=== PATIENT | female | born 1945 | race Caucasian/White ===

== ENCOUNTER → 2020-05-01 14:43 | Outpatient (BNVA) | payer MEDICARE, MEDICAID, SELFPAY | PROVIDERS: PCP Physician Assistant; Referring Provider Physician Assistant; Visit Provider Family Medicine Adult Medicine | DX: M23.92 Unspecified internal derangement of left knee (principal); M51.36 Other intervertebral disc degeneration, lumbar region | CPT/HCPCS: 99212; Q3014 ==

== ENCOUNTER 2020-06-07 | Outpatient (REF) | payer MEDICARE, MEDICAID, SELFPAY ==
[2020-06-07 15:03] LABS: Glucose Urine UA NEG (NEG); Leukocyte Esterase Urine 1+ (NEG); Nitrite Urine POS (NEG); Specific Gravity - Urine 1.025 (1.005-1.025); Urine Blood TRACE (NEG); Urine Ketones NEG (NEG); Urine Protein TRACE MG/DL (NEG-TRACE)
[2020-06-07 15:10] LABS: Appearance Urine CLOUDY; Color Urine YELLOW
[2020-06-07 15:21] LABS: Bacteria Urine 4+ /LPF; RBC Urine 0-2 /HPF (0); Squamous Epithelial Cell Urine 1+ /LPF
== END 2020-06-07 00:01 | disposition home or self-care (01) ==
LOC: HO.LNP
PROVIDERS: Visit Provider Physician Assistant
DX: R30.0 Dysuria (principal)
CPT/HCPCS: 81001

== ENCOUNTER 2020-08-27 06:55 | Outpatient (REF) | payer MEDICARE, MEDICAID, SELFPAY ==
[2020-08-27 11:46] LABS: MANUAL DIFF FLAG NO
[2020-08-27 11:55] LABS: Basophils Percent Auto 0.2 % (0-2); Eosinophils Absolute Auto 0.1 X10*3/uL (0.0-0.4); Eosinophils Percent Auto 0.8 % (0-4); Hematocrit 33.5 % (37-47); Hemoglobin 10.7 g/dl (12.0-16.0); Imm Gran Abs Auto 0.03 X10*3/uL (0.00-0.03); Imm Gran Pct Auto 0.3 % (0.0-0.4); Lymphocytes Absolute Auto 1.3 X10*3/uL (1.2-4.9); Lymphocytes Percent Auto 12.5 % (20-40); Mean Corpuscular HGB Conc 31.9 g/dl (31.0-35.0); Mean Corpuscular Hemoglobin 30.5 pg (27.0-33.0); Mean Corpuscular Volume 95.4 fL (80-98); Mean Platelet Volume 9.7 fL (9.4-12.3); Monocytes Absolute Auto 0.5 X10*3/uL (0.1-1.2); Monocytes Percent Auto 4.7 % (2-11); Neutrophils Absolute Auto 8.7 X10*3/uL (2.0-8.3); Neutrophils Percent Auto 81.5 % (45-73); Platelet Count 209 X10*3/uL (160-400); Red Blood Count 3.51 X10*6/uL (4.20-5.50); Red Cell Distribution Width 13.7 % (11.0-16.0); White Blood Count 10.6 X10*3/uL (4.8-10.8)
[2020-08-27 12:07] LABS: Estimated Average Glucose 117 mg/dL; Hemoglobin A1c % 5.7 %
[2020-08-27 12:21] LABS: Alanine Aminotransferase 7 U/L (0-31); Albumin Level 3.9 g/dL (3.5-5.0); Alkaline Phosphatase 65 U/L (39-117); Anion Gap 11 (12-20); Aspartate Amino Transferase 11 U/L (5-31); Bilirubin Total 0.7 mg/dL (0.0-1.0); Blood Urea Nitrogen 13 mg/dL (9-16); Calcium 8.1 mg/dL (8.4-10.2); Carbon Dioxide 31 mmol/L (22-29); Chloride 100 mmol/L (96-108); Cholesterol 124 mg/dL; Estimated Glomerular Filt Rate > 60; Glucose Fasting 79 mg/dL (60-99); HDL Cholesterol 36 mg/dL; LDL Cholesterol Calculated 70 mg/dl; Potassium 3.9 mmol/L (3.3-5.1); Sodium 138 mmol/L (135-145); Total Protein 7.1 g/dL (6.5-8.0); Triglycerides 91 mg/dL
[2020-08-27 12:46] LABS: TSH reflex Free T4 3.17 uIU/mL (0.32-4.0)
== END 2020-08-27 06:56 | disposition home or self-care (01) ==
LOC: HO.LHD 06:55
PROVIDERS: Visit Provider Physician Assistant
DX: I48.0 Paroxysmal atrial fibrillation (principal); E11.42 Type 2 diabetes mellitus with diabetic polyneuropathy; Z79.4 Long term (current) use of insulin
CPT/HCPCS: 36415; 80053; 80061; 83036; 84443; 85025

== ENCOUNTER 2020-09-08 10:58 | Outpatient (REF) | payer MEDICARE, MEDICAID, SELFPAY ==
--- NOTE | 2020-09-08 11:13 | MHC.AU.P13 ---
Hearing Instrument Maintenance/Problem Date of Visit: 09/08/20 Right Ear: Computer Designer: Phonak Model: SpikeSource B50-P Serial Number: [id number] Repair Warranty: 07/24/21 Loss and Damage Warranty: 07/24/21 Battery Size: 13 Color: [place] Tubing: #2 SLIM TUBE Type of Dome: MEDIUM CLOSED Left Ear: Computer Designer: Phonak Model: SpikeSource B50-P Serial Number: [id number] RepairWarranty: 07/24/21 Loss and Damage Warranty: 07/24/21 Battery Size: 13 Color: [place] Tubing: #2 SLIM TUBE Type of Dome: MEDIUM CLOSED Follow-Up Summary: Hearing aids brought in for cleaning. Both aids cleaned and #2 slim tubes and medium closed domes replaced - both amplifying clearly. It was noted the left volume control is missing - sending to [email or web address] for repair. Dispensed 42 batteries today. Call patient when repair in. Recommendations: Recommendations: Patient will be contacted when materials have arrived. Signature: Provider: ALICE Burrell-
== END 2020-09-08 10:59 | disposition home or self-care (01) ==
LOC: HO.HAP 10:58
PROVIDERS: Visit Provider Physician Assistant
DX: Z46.1 Encounter for fitting and adjustment of hearing aid (principal)
CPT/HCPCS: 92593; 99499; V5266

== ENCOUNTER 2020-09-12 12:13 | Inpatient (IN) | payer MEDICARE, MEDICAID, SELFPAY ==
--- NOTE | ~2020-09-12 | XR_ITS ---
EXAMINATION: XR CHEST CLINICAL INFORMATION: Weakness COMPARISON: Chest 03/15/2019 TECHNIQUE: Frontal view of the chest was obtained. FINDINGS: The lungs are well-expanded and clear of acute process. The heart size and pulmonary vascularity is normal. There is mild dextro scoliosis of dorsal spine. No lytic process seen. XR/XR chest 1V IMPRESSION: Unremarkable chest exam.
--- NOTE | ~2020-09-12 | CT_ITS ---
EXAMINATION: CT HEAD/BRAIN WITHOUT CONTRAST CLINICAL INFORMATION: Altered mental status COMPARISON: March 15, 2019 TECHNIQUE: CT scanning from base of skull to vertex performed without IV contrast administration. This CT examination was performed using dose optimization techniques as appropriate, variously including the following: *Automated exposure control *Adjustment of mA and/or kV according to patient size (this includes techniques or standardized protocols for targeted exams where dose is matched to indication/reason for exam; i.e. extremities or head) *Use of iterative reconstruction technique DLP: 716 mGy-cm. FINDINGS: There is multilevel age-related prominence of the ventricles, sulci, and cisterns. No abnormal extra-axial fluid collection or intracranial hemorrhage is seen. No significant mass effect or midline structure shift is evident. Visualized paranasal sinuses and mastoid air cells unremarkable. CT/CT cervical spine wo con IMPRESSION: No acute intracranial abnormality identified. EXAMINATION: CT OF THE CERVICAL SPINE CLINICAL INFORMATION: Fall COMPARISON: None. TECHNIQUE: Thin helical images with sagittal and coronal reformats. This CT examination was performed using dose optimization techniques as appropriate, variously including the following: *Automated exposure control *Adjustment of mA and/or kV according to patient size (this includes techniques or standardized protocols for targeted exams where dose is matched to indication/reason for exam; i.e. extremities or head) *Use of iterative reconstruction technique DOSE: DLP 308 mGy-cm. FINDINGS: No abnormal prevertebral soft tissue swelling is seen. No fracture is noted. Paraspinal fat planes are maintained. There is degenerative disc disease seen most prominent C4-C7 with disc space narrowing and marginal spurring and sclerosis. There is some anterior neural foramina encroachment bilaterally from spurring of the joints of L[place]chka most significant at the C6-7 levels. Pterygoid plates are intact. Temporomandibular joints unremarkable. The lung apices are clear. IMPRESSION: No acute cervical spine fracture. Cervical spondylosis.
--- NOTE | ~2020-09-12 | CT_ITS ---
EXAMINATION: CT HEAD/BRAIN WITHOUT CONTRAST CLINICAL INFORMATION: Altered mental status COMPARISON: March 15, 2019 TECHNIQUE: CT scanning from base of skull to vertex performed without IV contrast administration. This CT examination was performed using dose optimization techniques as appropriate, variously including the following: *Automated exposure control *Adjustment of mA and/or kV according to patient size (this includes techniques or standardized protocols for targeted exams where dose is matched to indication/reason for exam; i.e. extremities or head) *Use of iterative reconstruction technique DLP: 716 mGy-cm. FINDINGS: There is multilevel age-related prominence of the ventricles, sulci, and cisterns. No abnormal extra-axial fluid collection or intracranial hemorrhage is seen. No significant mass effect or midline structure shift is evident. Visualized paranasal sinuses and mastoid air cells unremarkable. CT/CT head/brain wo con IMPRESSION: No acute intracranial abnormality identified. EXAMINATION: CT OF THE CERVICAL SPINE CLINICAL INFORMATION: Fall COMPARISON: None. TECHNIQUE: Thin helical images with sagittal and coronal reformats. This CT examination was performed using dose optimization techniques as appropriate, variously including the following: *Automated exposure control *Adjustment of mA and/or kV according to patient size (this includes techniques or standardized protocols for targeted exams where dose is matched to indication/reason for exam; i.e. extremities or head) *Use of iterative reconstruction technique DOSE: DLP 308 mGy-cm. FINDINGS: No abnormal prevertebral soft tissue swelling is seen. No fracture is noted. Paraspinal fat planes are maintained. There is degenerative disc disease seen most prominent C4-C7 with disc space narrowing and marginal spurring and sclerosis. There is some anterior neural foramina encroachment bilaterally from spurring of the joints of L[place]chka most significant at the C6-7 levels. Pterygoid plates are intact. Temporomandibular joints unremarkable. The lung apices are clear. IMPRESSION: No acute cervical spine fracture. Cervical spondylosis.
[2020-09-12 12:19] VITALS: BP 156/53; PULSE 70; RESP 18; TEMP 37.1; O2SAT 95; BMI 33.5
--- NOTE | 2020-09-12 12:41 | ECG_ITS ---
Test Reason : FALL Blood Pressure : / mmHG Vent. Rate : 064 BPM Atrial Rate : 059 BPM P-R Int : 000 ms QRS Dur : 092 ms QT Int : 432 ms P-R-T Axes : 000 -15 073 degrees QTc Int : 445 ms Normal sinus rhythm Premature atrial complexes Left axis deviation Abnormal ECG When compared with ECG of 13-MAY-2019 21:37, No significant changes seen Referred By: Mike Courtney Electronically Signed By:KEN MARTINEZ
--- NOTE | 2020-09-12 13:23 | ED_ITS ---
HPI - Altered Mental Status General Chief Complaint: Fall Stated Complaint: increased confusion Time Seen by Provider: 09/12/20 12:41 Source: EMS Mode of arrival: EMS Limitations: altered mental status History of Present Illness HPI narrative: 74-year-old female according to the EMR she has past medical history is significant for process of atrial fibrillation on Pradaxa, diabetes, hypertension, dyslipidemia, anxiety disorder, CAD, chronic diastolic heart failure, schizoaffective disorder, osteoarthritis, breast CA as well as surgical history of tubal ligation who presents via EMS from home after her son called for fall. Has been reported that patient has had a recent increase and altered mentation. She arrives in a cervical collar. Offers no specific complaints she is alert and oriented x1. MD complaint: altered mental status (Fall) Timing confirmed by: family member (Son ?lives with her) Treatments prior to arrival: spinal immobilization Related Data Home Medications Medication Instructions Recorded Confirmed amlodipine 10 mg tablet 10 mg PO DAILY 04/15/20 09/12/20 dabigatran etexilate 150 mg capsule 150 mg PO BID 04/15/20 09/11/20 furosemide 20 mg tablet 20 mg PO DAILY 05/13/20 09/12/20 albuterol sulfate 90 mcg/actuation 2 puff INHALATION Q6H PRN 06/18/20 09/12/20 aerosol inhaler clonazepam 1 mg tablet 1 mg PO BID 07/01/20 09/12/20 acetaminophen [Acetaminophen Extra 500 mg PO Q8H PRN 09/12/20 09/12/20 Strength] Previous Rx's Medication Instructions Recorded escitalopram oxalate 10 mg tablet 10 mg PO DAILY #30 tab 05/03/20 metformin 500 mg tablet 500 mg PO BID #180 tab 05/25/20 simvastatin 10 mg tablet 10 mg PO BEDTIME #90 tab 06/09/20 nitrofurantoin macrocrystal 100 mg 100 mg PO DAILY 30 Days #30 cap 06/11/20 capsule trazodone 50 mg tablet 150 mg PO BEDTIME #90 tab 06/26/20 insulin glargine 100 unit/mL (3 30 unit SUBCUT BEDTIME #12 ml 08/15/20 mL) subcutaneous pen pregabalin 100 mg capsule 100 mg PO TID 30 Days #90 cap 09/08/20 baclofen 10 mg tablet 10 mg PO BID 30 Days #60 tab 09/11/20 Allergies Allergy/AdvReac Type Severity Reaction Status Date / Time amoxicillin [Augmentin] Allergy Unknown Diarrhea Verified 09/11/20 14:11 clavulanic acid [Augmentin] Allergy Unknown Diarrhea Verified 09/11/20 14:11 Iodinated Contrast Media Allergy Unknown THROAT Verified 09/11/20 14:11 [IV Dye, Iodine Containing CLOSES Contrast ] UP/SWELLIN iodine [IODINE] Allergy Unknown ANAPHYLAXIS Verified 09/11/20 14:11 lisinopril [LISINOPRIL] Allergy Unknown UNKNOWN, Verified 09/11/20 14:11 cough, cough prednisone [PREDNISONE] Allergy Unknown INCREASE Verified 09/11/20 14:11 BLOOD PRESSURE quetiapine [From SEROQUEL] Allergy Unknown SWELLING Verified 09/11/20 14:11 X-ray dye Allergy Unknown Facial Verified 09/11/20 14:11 swelling/ trouble breathing Review of Systems Review of Systems: Yes Unobtainable due to mental status [facility] Past Medical History [facility] Narrative: 1. Paroxysmal atrial fibrillation 2. Type 2 diabetes. 3. Hypertension. 4. Dyslipidemia. 5. Anxiety. 6. History of coronary artery disease. 7. Chronic diastolic congestive heart failure. 8. Schizoaffective disorder. 9. Osteoarthritis. 10. History of breast cancer. PAST SURGICAL HISTORY: Tubal ligation. Medical History (Updated 09/12/20 @ 16:26 by Mike Courtney NP) Derangement of left knee Lumbar degenerative disc disease Surgical History History of lumpectomy of right breast History of tubal ligation Family History Family History Father Diabetes Heart disease Mother Heart disease Son Opiate addiction Social History Social History Alcohol intake: never Smoking Status: Never smoker Advance Directives: No Advance Directives Information Provided: No Physical Exam Vital Signs: Vital Signs: Last Vital Signs Temp 98.7 F 09/12/20 12:19 Pulse 66 09/12/20 15:08 Resp 16 09/12/20 15:08 BP 133/49 L 09/12/20 15:08 Pulse Ox 94 09/12/20 15:08 Body Mass Index 33.5 Reviewed Const: Other: Has a cervical collar on and she sat herself up no complaint of pain. General: cooperative and alert Nutritional Appearance: overweight Orientation/consciousness: oriented to person, No oriented to place and No oriented to time HENMT: Head: Yes normal to inspection Ears: hearing grossly normal bilaterally Eyes: General: appearance normal, both eyes and all related structures Visual Reed: normal visual reed by confrontation Neck: Neck: Yes normal visual inspection, No positive Brudzinski's sign, No positive Kernig's sign and No tender Thyroid: Thyroid normal Chest: Chest palpation & inspection: normal inspection of the chest Resp: Effort & Inspection: normal respiratory effort Auscultation: clear to auscultation bilaterally Cardio: Jugular venous distension: no JVD Rhythm: regular rhythm Heart sounds: S1 normal heart sound present and S2 normal heart sound present GI: Inspection: Yes normal to inspection Palpation (GI): Soft to palpation Percussion: Yes normal to percussion Auscultation: normal bowel sounds : General: Yes no CVA tenderness Back/Spine/Pelvis: Back: no CVA tenderness Skin: General skin exam: no rashes or lesions noted Neuro: General: oriented to person, No oriented to place and No oriented to time Extrem: General: Yes normal to inspection Course Reevaluation(s) Reevaluation #1: 1241 Interview 74-year-old female with above history presenting with fall question acute altered status going on for past day or so. History limited given her current mental status she has cervical collar in place. Patient will be taken for stat head and cervical spine CT she offers no complaints of pain. She is alert and oriented x1. Talking in word salad. History of very limited from her. Given the history she is out of the timeframe for tPA. Attempt to call son no answer Subsequently attempted back and spoke to her son Yakov at [phone] he reports that he stays with her almost all the times he lives very close and she has been confused appearing over the past 24 hours or so he saw her last night at 21:00 she was doing well this morning he went to check on her and she was found lying down next to her chair. She seemed confused as if she did a year ago and prior to that when she had UTI. States she frequently is like this when she gets UTIs but has not had 1 in the past year or so. Labs including lactic acid and blood cultures as well as UA and cardiac enzymes ordered. Will monitor closely. At this time she is hemodynamically stable. Reevaluation #2: Labs show slightly elevated troponin at 39 plan for repeat, no complaint of chest pain or shortness of breath in fact no pain at all anywhere. Urine with urine wbc's 10/14 otherwise no nitrate, trace bacteria. I spoke to his son who tells me that she had several episodes of UTIs in the past and ended up with similar symptoms last year where she had up in rehab. Will go ahead and empirically treat this with ceftriaxone and culture the urine. Given her fall question syncope versus mechanical and altered mentation question CVA versus possible UTI versus psych. At this time plan for admission. MDM - Altered Mental Status Medical Records Attestation: I reviewed the patient's medical records. Lab Data Attestation: I reviewed the patient's lab results. Result diagrams: 09/12/20 13:22 09/12/20 13:22 Labs: Lab Results 09/12/20 09/12/20 09/12/20 Range/Units 13:22 13:22 13:22 WBC 6.4 (4.8-10.8) X10*3/uL RBC 3.63 L (4.20-5.50) X10*6/uL Hgb 11.3 L (12.0-16.0) g/dl Hct 34.3 L (37-47) % MCV 94.5 (80-98) fL MCH 31.1 (27.0-33.0) pg MCHC 32.9 (31.0-35.0) g/dl RDW 13.5 (11.0-16.0) % Plt Count 210 (160-400) X10*3/uL MPV 9.2 L (9.4-12.3) fL Immature Gran % (Auto) 0.5 H (0.0-0.4) % Neut % (Auto) 78.6 H (45-73) % Lymph % (Auto) 13.4 L (20-40) % Roberts % (Auto) 6.8 (2-11) % Eos % (Auto) 0.2 (0-4) % Baso % (Auto) 0.5 (0-2) % Lymph # (Auto) 0.9 L (1.2-4.9) X10*3/uL Roberts # (Auto) 0.4 (0.1-1.2) X10*3/uL Eos # (Auto) 0.0 (0.0-0.4) X10*3/uL Baso # (Auto) 0.0 (0.0-0.2) X10*3/uL Abs Immat Gran (auto) 0.03 (0.00-0.03) X10*3/uL Absolute Neuts (auto) 5.0 (2.0-8.3) X10*3/uL Absolute Nucleated RBC 0.000 (0.0-0.012) X10*3/uL Nucleated RBC % (auto) 0.0 (0.0-0.2) /100WBC PT 14.6 H (10.8-13.0) SEC INR 1.2 H (0.9-1.1) APTT 48.5 H (24.1-38.0) SEC Sodium 143 (135-145) mmol/L Potassium 3.7 (3.3-5.1) mmol/L Chloride 103 (96-108) mmol/L Carbon Dioxide 28 (22-29) mmol/L Anion Gap 16 (12-20) BUN 17 H (9-16) mg/dL Creatinine 0.94 (0.5-1.4) mg/dL Estim Creat Clear Calc 63.7 Estimated GFR 58 Random Glucose 137 H (60-115) mg/dL Lactic Acid (0.5-2.0) mmol/L Calcium 8.9 D (8.4-10.2) mg/dL Total Bilirubin 0.4 (0.0-1.0) mg/dL AST 11 (5-31) U/L ALT 7 (0-31) U/L Alkaline Phosphatase 61 (39-117) U/L Total Creatine Kinase (26-140) U/L Troponin I High Sens (<3.5-17.0) ng/L B-Natriuretic Peptide (<100) pg/mL Total Protein 7.4 (6.5-8.0) g/dL Albumin 4.2 (3.5-5.0) g/dL Urine Color Urine Appearance Urine pH (5.0-8.0) Ur Specific [place] (1.005-1.025) Urine Protein (NEG-TRACE) MG/DL Urine Glucose (UA) (NEG) MG/DL Urine Ketones (NEG) MG/DL Urine Blood (NEG) Urine Nitrite (NEG) Ur Leukocyte Esterase (NEG) Urine RBC (0) /HPF Urine WBC (0-4) /HPF Ur Squamous Epith Cells /LPF Urine Bacteria /LPF Urine Mucus /LPF COVID-19 (ELLEN) (Negative) COVID-19 Clin Com 09/12/20 09/12/20 09/12/20 Range/Units 13:22 13:22 13:50 WBC (4.8-10.8) X10*3/uL RBC (4.20-5.50) X10*6/uL Hgb (12.0-16.0) g/dl Hct (37-47) % MCV (80-98) fL MCH (27.0-33.0) pg MCHC (31.0-35.0) g/dl RDW (11.0-16.0) % Plt Count (160-400) X10*3/uL MPV (9.4-12.3) fL Immature Gran % (Auto) (0.0-0.4) % Neut % (Auto) (45-73) % Lymph % (Auto) (20-40) % Roberts % (Auto) (2-11) % Eos % (Auto) (0-4) % Baso % (Auto) (0-2) % Lymph # (Auto) (1.2-4.9) X10*3/uL Roberts # (Auto) (0.1-1.2) X10*3/uL Eos # (Auto) (0.0-0.4) X10*3/uL Baso # (Auto) (0.0-0.2) X10*3/uL Abs Immat Gran (auto) (0.00-0.03) X10*3/uL Absolute Neuts (auto) (2.0-8.3) X10*3/uL Absolute Nucleated RBC (0.0-0.012) X10*3/uL Nucleated RBC % (auto) (0.0-0.2) /100WBC PT (10.8-13.0) SEC INR (0.9-1.1) APTT (24.1-38.0) SEC Sodium (135-145) mmol/L Potassium (3.3-5.1) mmol/L Chloride (96-108) mmol/L Carbon Dioxide (22-29) mmol/L Anion Gap (12-20) BUN (9-16) mg/dL Creatinine (0.5-1.4) mg/dL Estim Creat Clear Calc Estimated GFR Random Glucose (60-115) mg/dL Lactic Acid (0.5-2.0) mmol/L Calcium (8.4-10.2) mg/dL Total Bilirubin (0.0-1.0) mg/dL AST (5-31) U/L ALT (0-31) U/L Alkaline Phosphatase (39-117) U/L Total Creatine Kinase 54 (26-140) U/L Troponin I High Sens 39.5 H (<3.5-17.0) ng/L B-Natriuretic Peptide (<100) pg/mL Total Protein (6.5-8.0) g/dL Albumin (3.5-5.0) g/dL Urine Color Urine Appearance Urine pH (5.0-8.0) Ur Specific [place] (1.005-1.025) Urine Protein (NEG-TRACE) MG/DL Urine Glucose (UA) (NEG) MG/DL Urine Ketones (NEG) MG/DL Urine Blood (NEG) Urine Nitrite (NEG) Ur Leukocyte Esterase (NEG) Urine RBC (0) /HPF Urine WBC (0-4) /HPF Ur Squamous Epith Cells /LPF Urine Bacteria /LPF Urine Mucus /LPF COVID-19 (ELLEN) Negative (Negative) COVID-19 Clin Com See Note 09/12/20 09/12/20 09/12/20 Range/Units 13:50 13:50 13:57 WBC (4.8-10.8) X10*3/uL RBC (4.20-5.50) X10*6/uL Hgb (12.0-16.0) g/dl Hct (37-47) % MCV (80-98) fL MCH (27.0-33.0) pg MCHC (31.0-35.0) g/dl RDW (11.0-16.0) % Plt Count (160-400) X10*3/uL MPV (9.4-12.3) fL Immature Gran % (Auto) (0.0-0.4) % Neut % (Auto) (45-73) % Lymph % (Auto) (20-40) % Roberts % (Auto) (2-11) % Eos % (Auto) (0-4) % Baso % (Auto) (0-2) % Lymph # (Auto) (1.2-4.9) X10*3/uL Roberts # (Auto) (0.1-1.2) X10*3/uL Eos # (Auto) (0.0-0.4) X10*3/uL Baso # (Auto) (0.0-0.2) X10*3/uL Abs Immat Gran (auto) (0.00-0.03) X10*3/uL Absolute Neuts (auto) (2.0-8.3) X10*3/uL Absolute Nucleated RBC (0.0-0.012) X10*3/uL Nucleated RBC % (auto) (0.0-0.2) /100WBC PT (10.8-13.0) SEC INR (0.9-1.1) APTT (24.1-38.0) SEC Sodium (135-145) mmol/L Potassium (3.3-5.1) mmol/L Chloride (96-108) mmol/L Carbon Dioxide (22-29) mmol/L Anion Gap (12-20) BUN (9-16) mg/dL Creatinine (0.5-1.4) mg/dL Estim Creat Clear Calc Estimated GFR Random Glucose (60-115) mg/dL Lactic Acid 0.9 (0.5-2.0) mmol/L Calcium (8.4-10.2) mg/dL Total Bilirubin (0.0-1.0) mg/dL AST (5-31) U/L ALT (0-31) U/L Alkaline Phosphatase (39-117) U/L Total Creatine Kinase (26-140) U/L Troponin I High Sens (<3.5-17.0) ng/L B-Natriuretic Peptide 81 (<100) pg/mL Total Protein (6.5-8.0) g/dL Albumin (3.5-5.0) g/dL Urine Color YELLOW Urine Appearance CLEAR Urine pH 8.5 H (5.0-8.0) Ur Specific [place] 1.020 (1.005-1.025) Urine Protein NEG (NEG-TRACE) MG/DL Urine Glucose (UA) NEG (NEG) MG/DL Urine Ketones 15 (NEG) MG/DL Urine Blood NEG (NEG) Urine Nitrite NEG (NEG) Ur Leukocyte Esterase NEG (NEG) Urine RBC 0-2 (0) /HPF Urine WBC 10-14 H (0-4) /HPF Ur Squamous Epith Cells 1+ /LPF Urine Bacteria TRACE /LPF Urine Mucus 1+ /LPF COVID-19 (ELLEN) (Negative) COVID-19 Clin Com 09/12/20 Range/Units 16:25 WBC (4.8-10.8) X10*3/uL RBC (4.20-5.50) X10*6/uL Hgb (12.0-16.0) g/dl Hct (37-47) % MCV (80-98) fL MCH (27.0-33.0) pg MCHC (31.0-35.0) g/dl RDW (11.0-16.0) % Plt Count (160-400) X10*3/uL MPV (9.4-12.3) fL Immature Gran % (Auto) (0.0-0.4) % Neut % (Auto) (45-73) % Lymph % (Auto) (20-40) % Roberts % (Auto) (2-11) % Eos % (Auto) (0-4) % Baso % (Auto) (0-2) % Lymph # (Auto) (1.2-4.9) X10*3/uL Roberts # (Auto) (0.1-1.2) X10*3/uL Eos # (Auto) (0.0-0.4) X10*3/uL Baso # (Auto) (0.0-0.2) X10*3/uL Abs Immat Gran (auto) (0.00-0.03) X10*3/uL Absolute Neuts (auto) (2.0-8.3) X10*3/uL Absolute Nucleated RBC (0.0-0.012) X10*3/uL Nucleated RBC % (auto) (0.0-0.2) /100WBC PT (10.8-13.0) SEC INR (0.9-1.1) APTT (24.1-38.0) SEC Sodium (135-145) mmol/L Potassium (3.3-5.1) mmol/L Chloride (96-108) mmol/L Carbon Dioxide (22-29) mmol/L Anion Gap (12-20) BUN (9-16) mg/dL Creatinine (0.5-1.4) mg/dL Estim Creat Clear Calc Estimated GFR Random Glucose (60-115) mg/dL Lactic Acid (0.5-2.0) mmol/L Calcium (8.4-10.2) mg/dL Total Bilirubin (0.0-1.0) mg/dL AST (5-31) U/L ALT (0-31) U/L Alkaline Phosphatase (39-117) U/L Total Creatine Kinase (26-140) U/L Troponin I High Sens 45.3 H (<3.5-17.0) ng/L B-Natriuretic Peptide (<100) pg/mL Total Protein (6.5-8.0) g/dL Albumin (3.5-5.0) g/dL Urine Color Urine Appearance Urine pH (5.0-8.0) Ur Specific [place] (1.005-1.025) Urine Protein (NEG-TRACE) MG/DL Urine Glucose (UA) (NEG) MG/DL Urine Ketones (NEG) MG/DL Urine Blood (NEG) Urine Nitrite (NEG) Ur Leukocyte Esterase (NEG) Urine RBC (0) /HPF Urine WBC (0-4) /HPF Ur Squamous Epith Cells /LPF Urine Bacteria /LPF Urine Mucus /LPF COVID-19 (ELLEN) (Negative) COVID-19 Clin Com Imaging Data Head/cervical spine CT: Radiologist's impression: [address] [id number] Scan ReportSigned Patient: Amarilys Badillo MMR#: [id number]: 7Acct:[id number]/Sex: 74 / FADM Date: 09/12/20Loc: [address]: Ordering Physician: Mike Courtney NP Date of Service: 09/12/20 Procedure(s): CT head/brain wo con Accession Number(s): [id number] cc: Mike Courtney MASONRY INSPECTOR~ EXAMINATION: CT HEAD/BRAIN WITHOUT CONTRAST CLINICAL INFORMATION: Altered mental status COMPARISON: March 15, 2019 TECHNIQUE: CT scanning from base of skull to vertex performed without IV contrast administration. This CT examination was performed using dose optimization techniques as appropriate, variously including the following: *Automated exposure control *Adjustment of mA and/or kV according to patient size (this includes techniques or standardized protocols for targeted exams where dose is matched to indication/reason for exam; i.e. extremities or head) *Use of iterative reconstruction technique DLP: 716 mGy-cm. FINDINGS: There is multilevel age-related prominence of the ventricles, sulci, and cisterns. No abnormal extra-axial fluid collection or intracranial hemorrhage is seen. No significant mass effect or midline structure shift is evident. Visualized paranasal sinuses and mastoid air cells unremarkable. CT/CT head/brain wo con IMPRESSION: No acute intracranial abnormality identified. EXAMINATION: CT OF THE CERVICAL SPINE CLINICAL INFORMATION: Fall COMPARISON: None. TECHNIQUE: Thin helical images with sagittal and coronal reformats. This CT examination was performed using dose optimization techniques as appropriate, variously including the following: *Automated exposure control *Adjustment of mA and/or kV according to patient size (this includes techniques or standardized protocols for targeted exams where dose is matched to indication/reason for exam; i.e. extremities or head) *Use of iterative reconstruction technique DOSE: DLP 308 mGy-cm. FINDINGS: No abnormal prevertebral soft tissue swelling is seen. No fracture is noted. Paraspinal fat planes are maintained. There is degenerative disc disease seen most prominent C4-C7 with disc space narrowing and marginal spurring and sclerosis. There is some anterior neural foramina encroachment bilaterally from spurring of the joints of [place] most significant at the C6-7 levels. Pterygoid plates are intact. Temporomandibular joints unremarkable. The lung apices are clear. IMPRESSION: No acute cervical spine fracture. Cervical spondylosis. Dictated By:FIDELINA ANAYA V MDSigned By:<Electronically signed by FIDELINA ANAYA MD in OV>09/12/20 1334 DD/ 1242TD/TT: Geology Scientist: CHRIS ECG Data ECG #1: Interpretation: Atrial fibrillation with a competing junctional pacemaker Septal infarct (cited on or before 12-SEP-2020) Abnormal ECG When compared with ECG of 13-MAY-2019 21:37, Atrial fibrillation has replaced Sinus rhythm Questionable change in initial forces of Septal leads Nonspecific T wave abnormality, worse in Lateral leads Discharge Plan Discharge Clinical Impression: Fall, Altered mental status, Acute UTI Patient Disposition: Admitted As Inpatient Prescriptions: No Action escitalopram oxalate 10 mg tablet 10 mg PO DAILY Qty: 30 RF: 3 furosemide 20 mg tablet 20 mg PO DAILY RF: 0 metformin 500 mg tablet 500 mg PO BID Qty: 180 RF: 2 simvastatin 10 mg tablet 10 mg PO BEDTIME Qty: 90 RF: 0 nitrofurantoin macrocrystal 100 mg capsule 100 mg PO DAILY 30 Days Qty: 30 RF: 0 albuterol sulfate 90 mcg/actuation HFA aerosol inhaler 2 puff inhalation Q6H PRN (Reason: Shortness Of Breath Or Wheezing) RF: 0 trazodone 50 mg tablet 150 mg PO BEDTIME Qty: 90 RF: 3 clonazepam 1 mg tablet 1 mg PO BID RF: 0 insulin glargine [Lantus Solostar U-100 Insulin] 100 unit/mL (3 mL) insulin pen 30 unit subcut BEDTIME Qty: 12 RF: 3 pregabalin 100 mg capsule 100 mg PO TID 30 Days Qty: 90 RF: 3 acetaminophen [Acetaminophen Extra Strength] 500 mg tablet 500 mg PO Q8H PRN (Reason: Fever) RF: 0 Pradaxa 150 mg capsule 150 mg PO BID RF: 0 amlodipine 10 mg tablet 10 mg PO DAILY RF: 0 baclofen 10 mg tablet 10 mg PO BID 30 Days Qty: 60 RF: 1
[2020-09-12 13:29] LABS: MANUAL DIFF FLAG NO
[2020-09-12 13:31] LABS: Basophils Percent Auto 0.5 % (0-2); Eosinophils Percent Auto 0.2 % (0-4); Hematocrit 34.3 % (37-47); Hemoglobin 11.3 g/dl (12.0-16.0); Imm Gran Abs Auto 0.03 X10*3/uL (0.00-0.03); Imm Gran Pct Auto 0.5 % (0.0-0.4); Lymphocytes Absolute Auto 0.9 X10*3/uL (1.2-4.9); Lymphocytes Percent Auto 13.4 % (20-40); Mean Corpuscular HGB Conc 32.9 g/dl (31.0-35.0); Mean Corpuscular Hemoglobin 31.1 pg (27.0-33.0); Mean Corpuscular Volume 94.5 fL (80-98); Mean Platelet Volume 9.2 fL (9.4-12.3); Monocytes Absolute Auto 0.4 X10*3/uL (0.1-1.2); Monocytes Percent Auto 6.8 % (2-11); Neutrophils Percent Auto 78.6 % (45-73); Platelet Count 210 X10*3/uL (160-400); Red Blood Count 3.63 X10*6/uL (4.20-5.50); Red Cell Distribution Width 13.5 % (11.0-16.0); White Blood Count 6.4 X10*3/uL (4.8-10.8)
[2020-09-12 13:42] LABS: INTERNATIONAL NORM RATIO 1.2 (0.9-1.1); Prothrombin Time 14.6 SEC (10.8-13.0)
[2020-09-12 13:57] LABS: Partial Thromboplastin Time 48.5 SEC (24.1-38.0)
[2020-09-12 13:58] LABS: COVID-19 Test Negative (Negative)
[2020-09-12] MEDS: 0.9 % Sodium Chloride 500 ML IV (14:02)
[2020-09-12 14:05] LABS: Alanine Aminotransferase 7 U/L (0-31); Albumin Level 4.2 g/dL (3.5-5.0); Alkaline Phosphatase 61 U/L (39-117); Anion Gap 16 (12-20); Aspartate Amino Transferase 11 U/L (5-31); Bilirubin Total 0.4 mg/dL (0.0-1.0); Blood Urea Nitrogen 17 mg/dL (9-16); Calcium 8.9 mg/dL (8.4-10.2); Carbon Dioxide 28 mmol/L (22-29); Chloride 103 mmol/L (96-108); Creatinine Clr Calc Pharmacy 63.7; Estimated Glomerular Filt Rate 58; Glucose Random 137 mg/dL (60-115); Potassium 3.7 mmol/L (3.3-5.1); Sodium 143 mmol/L (135-145); Total Protein 7.4 g/dL (6.5-8.0)
[2020-09-12 14:06] LABS: Glucose Urine UA NEG (NEG); Leukocyte Esterase Urine NEG (NEG); Nitrite Urine NEG (NEG); PH 8.5 (5.0-8.0); Urine Blood NEG (NEG); Urine Ketones 15 MG/DL (NEG); Urine Protein NEG (NEG-TRACE)
[2020-09-12 14:09] LABS: Troponin-I High Sensitivity 39.5 ng/L (<3.5-17.0)
[2020-09-12 14:13] LABS: Appearance Urine CLEAR; Color Urine YELLOW
[2020-09-12 14:15] LABS: Bacteria Urine TRACE /LPF; Mucus Urine 1+ /LPF; RBC Urine 0-2 /HPF (0); Squamous Epithelial Cell Urine 1+ /LPF; UACC CULT YES
[2020-09-12 14:17] LABS: Lactic Acid 0.9 mmol/L (0.5-2.0)
[2020-09-12 14:28] LABS: B Type Natriuretic Peptide 81 pg/mL (<100)
[2020-09-12 15:08] VITALS: BP 133/49; PULSE 66; RESP 16; O2SAT 94
[2020-09-12 17:05] LABS: Troponin-I High Sensitivity 45.3 ng/L (<3.5-17.0)
[2020-09-12 18:09] VITALS: BP 139/52; PULSE 68; RESP 15; TEMP 37.3; O2SAT 92
[2020-09-12 18:19] LABS: Glucose, Whole Blood 108 mg/dL (60-115)
--- NOTE | 2020-09-12 19:19 | PC.NURSE ---
report given to floor.
[2020-09-12 20:00] VITALS: BP 105/65; PULSE 68; RESP 15; TEMP 37.1; O2SAT 94
[2020-09-12] MEDS: Enoxaparin Sodium 40 MG/0.4 ML SYRINGE SUBCUT (20:12)
[2020-09-12] MEDS: Baclofen 10 MG TABLET PO (20:13)
[2020-09-12] MEDS: clonazePAM 1 MG TABLET PO (20:13)
[2020-09-12] MEDS: traZODone HCL 50 MG TABLET 150 MG PO (20:13)
[2020-09-12] MEDS: Pregabalin 100 MG CAPSULE PO (20:13)
[2020-09-12 20:42] LABS: Glucose, Whole Blood 123 mg/dL (60-115)
--- NOTE | 2020-09-12 20:46 | HP_ITS ---
DATE OF SERVICE: 09/12/2020 CHIEF COMPLAINT: The patient found on the floor confused. HISTORY OF PRESENTING ILLNESS: This is a 74-year-old female patient with multiple prior hospitalization with similar presentation. As per patient's son, she was found on the ground next to her chair. Son last saw her at 9 p.m., and then went back to check up on her this morning and she was lying on the floor, confused. On looking into her prior record, it seems that the patient has had multiple similar hospitalization in 2019. During dose hospitalization, the patient was found to have urinary tract infection as well as rhabdomyolysis and required treatment with IV antibiotics. At present, the patient remains pleasantly confused, keeps repeating, and not able to answer any question. According to the son, the patient otherwise has been taking care of herself, taking her medication, and not confused, at baseline. In the emergency room, workup revealed an elevated troponin 39.5, blood sugar is stable at 137. Urine wbc's 10 to 14 with trace bacteria. Imaging studies including head CT and C-spine are both negative with no evidence of bleeding. There is no evidence of fall with no bruising. The patient is moving all 4 extremities. PAST MEDICAL HISTORY: 1. Significant for atrial fibrillation, on Pradaxa. The patient filled Pradaxa 3 months ago and her prescription ended on September 07. 2. History of type 2 diabetes mellitus, on insulin. 3. History of hypertension. 4. History of dyslipidemia. 5. History of anxiety. 6. History of coronary artery disease. 7. History of chronic diastolic congestive heart failure. 8. History of schizoaffective disorder. 9. History of osteoarthritis. 10. History of breast cancer. PAST SURGICAL HISTORY: Status post tubal ligation. FAMILY HISTORY: The patient's father is , he had diabetes and heart disease. Mother is , she had heart disease. SOCIAL HISTORY: The patient resides alone. The patient's sons check on her. Unable to obtain history about ambulation, but as per previous records, the patient was ambulating with the use of walker or wheelchair. She denied use of tobacco or alcohol use in the past. MEDICATIONS: Medications on admission are Norvasc 10 mg daily, Pradaxa 150 b.i.d., Lexapro 10 mg daily, Tylenol 500 q.8 hours, albuterol inhaler 2 puffs q.6 hours as needed, baclofen 10 mg b.i.d., clonazepam 1 mg b.i.d., escitalopram 10 mg daily, Lasix 20 mg daily, Lantus insulin 30 units at bedtime, metformin 500 b.i.d., nitrofurantoin 100 mg by mouth daily, Pregabalin 100 mg t.i.d., simvastatin 10 mg at bedtime, trazodone 150 mg at bedtime. REVIEW OF SYSTEMS: Unable to obtain due to patient's confusion. PHYSICAL EXAMINATION: GENERAL: The patient is resting comfortably in bed. Offers no acute complaints. VITAL SIGNS: Blood pressure 133/49, pulse of 66, respiratory rate of 16, O2 saturation 94% on room air. HEENT: Pupils equal, round, and reactive to light and accommodation. Extraocular muscles are intact. Anicteric sclerae. Mouth has moist mucous membranes. NECK: Supple. No increased JVD. CARDIOVASCULAR: Heart is regular rate and rhythm. LUNGS: Clear to auscultation bilaterally. No respiratory distress. No wheeze or rhonchi. GASTROINTESTINAL: Abdomen is soft and nontender. Bowel sounds are audible. No guarding or rigidity noted. EXTREMITIES: Without clubbing, cyanosis, or pitting edema. NEURO: The patient is moving all 4 extremities. No focal deficit noted. Speech is clear. SKIN: Warm and dry with no rashes. No bruising noticed. LABORATORY DATA: Sodium 143, potassium 3.7, chloride 103, carbon dioxide 28, bicarb 16, BUN 17, creatinine is 0.94, and random glucose 137. Urinalysis showed 10 to 14 wbc's, trace bacteria, no rbc's, no urine nitrate. Imaging studies as mentioned, head CT, C-spine, and a chest x-ray, all studies were unremarkable. EKG showed atrial fibrillation with stable ventricular rate. ASSESSMENT AND PLAN: This is a 74-year-old female patient with past medical history of schizoaffective disorder; diabetes; atrial fibrillation, on Pradaxa; hypertension; chronic diastolic heart failure; who was brought into [facility] since she was found on the floor by her son. There is no evidence of acute stroke, acute renal failure, hypoglycemia. No evidence of any injury. Due to prior history of similar episodes with urinary tract infection, the patient is being admitted to the hospital with a diagnosis of toxic metabolic encephalopathy likely related to urinary tract infection. PROBLEM LIST: 1. Toxic metabolic encephalopathy. Likely related to urinary tract infection, although urinalysis is not significantly positive likely since the patient is on nitrofurantoin. The patient will be treated with IV ceftriaxone. We will follow urine cultures and clinical course closely. There is no evidence of acute CVA or pulmonary infection. The patient is on multiple medications that can contribute to confusion, but since she has been on same medication for years, we will continue all home medication. 2. Elevated troponin that remains flat, and the patient with no chest discomfort, appears hemodynamically stable. Therefore, we will do no further cardiac workup at this time. 3. History of diabetes mellitus. The patient is on Lantus and metformin. We will hold metformin, place the patient on ADA diet. Cover her with insulin sliding scale. Blood sugar noted to be elevated. We will start low-dose Lantus. 4. Atrial fibrillation. The patient's ventricular rate is stable. The patient ran out of her Pradaxa 3 days ago. If there is no history of fall and the patient is evaluated by PT, then she can be placed back on Pradaxa. Question PCP discontinued Pradaxa, the patient's son is not aware of this. 5. Dyslipidemia. Continue statins. CPK is within normal range. 6. Hypertension. We will continue home medications. 7. Deep vein thrombosis prophylaxis. We will place patient on Lovenox, previously was on Pradaxa. If PT eval is unremarkable, we will resume Pradaxa after checking with PCP on Tuesday. I tried calling the patient's son, but no one answered. The patient's son is Yonis Dickson, phone #[phone], but the emergency room nurse practitioner, Jatin, spoke with the patient's son, who provided most of the history. As mentioned earlier, the patient's son is not aware of the patient's medications. MD SAKINA Toure/KATHERYN / [id number]
[2020-09-12 23:43] VITALS: BP 175/74; PULSE 88; RESP 18; TEMP 36.9; O2SAT 93
[2020-09-13] MEDS: cefTRIAXone sodium 1 GM in 0.9 % Sodium Chloride 50 ML IV ×2 (03:15→21:26)
[2020-09-13] MEDS: 0.9 % Sodium Chloride Flush 3 ML SYRINGE IVFLUSH ×4 (03:22→21:27)
[2020-09-13 03:28] VITALS: BP 147/65; PULSE 57; RESP 18; TEMP 36.2; O2SAT 95
[2020-09-13 07:27] LABS: Glucose, Whole Blood 125 mg/dL (60-115)
[2020-09-13 07:31] VITALS: BP 154/69; PULSE 60; RESP 20; TEMP 36.1; O2SAT 92
--- NOTE | 2020-09-13 09:26 | HO.PM.IMPN ---
Subjective Subjective Date of Service: 09/13/20 <ALYSSA Rothman - Last Filed: 09/13/20 12:50> 09/13/20 <Malcolm Cuevas MD - Last Filed: 09/13/20 13:01> Interval History: f/u encephalopathy/UTI Pt sleepy this morning, unable to provide history <ALYSSA Rothman - Last Filed: 09/13/20 12:50> Review of Systems Review of Systems: Yes Unobtainable due to mental condition <ALYSSA Rothman - Last Filed: 09/13/20 12:50> Physical Exam Vital Signs: Vital Signs: Last Vital Signs Temp 96.9 F 09/13/20 07:31 Pulse 60 09/13/20 07:31 Resp 20 09/13/20 07:31 BP 154/69 H 09/13/20 07:31 Pulse Ox 92 09/13/20 07:31 Body Mass Index 33.5 <ALYSSA Rothman - Last Filed: 09/13/20 12:50> Const: Other: sleepy but arousable to verbal stimuli, answering some questions but still confused <ALYSSA Rothman - Last Filed: 09/13/20 12:50> Nutritional Appearance: well nourished <ALYSSA Rothman - Last Filed: 09/13/20 12:50> HENMT: Head: Yes normocephalic and Yes atraumatic <ALYSSA Rothman - Last Filed: 09/13/20 12:50> Eyes: Sclerae: sclerae normal <ALYSSA Rothman - Last Filed: 09/13/20 12:50> Chest: Chest palpation & inspection: normal inspection of the chest <ALYSSA Rothman Last Filed: 09/13/20 12:50> Resp: Effort & Inspection: normal respiratory effort and no respiratory distress <ALYSSA Rothman Last Filed: 09/13/20 12:50> Cardio: Rate: regular rate <ALYSSA Rothman - Last Filed: 09/13/20 12:50> Rhythm: regular rhythm <ALYSSA Rothman - Last Filed: 09/13/20 12:50> GI: Palpation (GI): Soft to palpation and nontender <ALYSSA Rothman - Last Filed: 09/13/20 12:50> Extrem: General: Yes normal to inspection <ALYSSA Rothman - Last Filed: 09/13/20 12:50> Objective Data Current Medications Generic Name Dose Route Start Last Admin Trade Name Freq PRN Reason Stop Dose Admin Acetaminophen 650 mg 09/12/20 19:06 Acetaminophen Supp 650 Mg Supp.Rect GA Q6H PRN Pain, Mild (Pain Scale 1-3) Albuterol Sulfate 2 puff 09/12/20 17:41 Albuterol Sulfate 90 Mcg 8 Gm Inhaler INHALE Q6H PRN Shortness Of Breath Or Wheezing Amlodipine Besylate 10 mg 09/13/20 09:00 Amlodipine Besylate 10 Mg Tablet PO DAILY [facility] Protocol Atorvastatin Calcium 10 mg 09/13/20 09:00 Atorvastatin Calcium 10 Mg Tablet PO DAILY [facility] Baclofen 10 mg 09/12/20 21:00 09/12/20 20:13 Baclofen 10 Mg Tablet PO 10 mg BID DANELLE Administration Clonazepam 1 mg 09/12/20 21:00 09/12/20 20:13 Clonazepam 1 Mg Tablet PO 1 mg BID ADNELLE Administration Enoxaparin Sodium 40 mg 09/12/20 20:00 09/12/20 20:12 Enoxaparin Sodium 40 Mg/0.4 Ml Syringe SUBCUT 40 mg Q24H DANELLE Administration Escitalopram Oxalate 10 mg 09/13/20 09:00 Escitalopram Oxalate 10 Mg Tablet PO DAILY [facility] Furosemide 20 mg 09/13/20 09:00 Furosemide 20 Mg Tablet PO DAILY [facility] Protocol Ceftriaxone Sodium 1 gm/ 50 mls @ 100 mls/hr 09/12/20 20:00 09/13/20 03:42 Sodium Chloride IV Infused Q24H [facility] Infusion Insulin Human Lispro 0 unit 09/12/20 21:00 09/13/20 08:18 Insulin Lispro 100 Unit/Ml 3 Ml Vial SUBCUT Not Given QIDACHS [facility] Protocol Ondansetron HCl 4 mg 09/12/20 19:06 Ondansetron Hcl 4 Mg/2 Ml Vial IVPUSH Q8H PRN Nausea and Vomiting Pregabalin 100 mg 09/12/20 21:00 03/26/21 20:13 Pregabalin 100 Mg Capsule PO 100 mg TID DANELLE Administration Sodium Chloride 3 ml 09/13/20 00:00 09/13/20 03:22 0.9 % Sodium Chloride Flush 3 Ml Syringe IVFLUSH 3 ml QSHIFT DANELLE Administration Trazodone HCl 150 mg 09/12/20 21:00 09/12/20 20:13 Trazodone Hcl 50 Mg Tablet PO 150 mg BEDTIME DANELLE Administration <ALYSSA Rothman - Last Filed: 09/13/20 12:50> Labs CBC & Chem 7: : 09/12/20 13:22 09/12/20 13:22 <ALYSSA Rothman - Last Filed: 09/13/20 12:50> Assessment and Plan (1) Fall: Status: Acute <ALYSSA Rothman - Last Filed: 09/13/20 12:50> (2) Altered mental status: Status: Acute <ALYSSA Rothman - Last Filed: 09/13/20 12:50> (3) Acute UTI: Status: Acute <ALYSSA Rothman - Last Filed: 09/13/20 12:50> Assessment and Plan: This is a 74 year old female with history of afib on pradaxa, HTN, HLD, frequent UTIs who is brought to the emergency department due to increasing confusion Toxic metabolic encephalopathy Likely related to UTI given previous history, although UA is not significantly positive, probably due to daily nitrofurantoin Brain CT negative On multiple medications that can contribute to confusion, has been on them long-term -Continue IV ceftriaxone D#2, Follow urine cultures -Will decrease doses of klonopin and baclofen Elevated troponin remains flat, no chest discomfort no further cardiac workup at this time. DM -hold metformin -continue Lantus -SSI, POC Atrial fibrillation. ran out of her Pradaxa 3 days ago. unclear if was stopped by pcp will order PT eval, then she can be placed back on Pradaxa. Dyslipidemia. Continue statins. CPK is within normal range. Hypertension. continue Norvasc, lasix Mood Continue lexapro, klonopin Chronic pain Lyrica, baclofen Dispo: PT eval pending. Lives alone ?need for more services at home vs STR DVT prophylaxis. Lovenox, previously was on Pradaxa. If PT eval is unremarkable, we will resume Pradaxa Attending: Dr. Cuevas <ALYSSA Rothman - Last Filed: 09/13/20 12:50> (4) Metabolic encephalopathy: Status: Acute <ALYSSA Rothman - Last Filed: 09/13/20 12:50> Assessment and Plan: Addendum to documentation by midlevel I saw and examined the patient and participated in the stout portion of the E/M service. I agree with exam and management as outline byPA. Patient is here with toxic metabolic encephalopathy likely from medication and possible UTI, she has been very somnolent but is now awake alert and oriented to self and Place.. she is otherwise pleasant. Exam: alert oreined to self, place. CVRRR S1S2, lungs clear, Neuro: no focal defici. Psych: apropriate affect, plane, memory issues. Plan: she likely has dementia compounded on metabolic encephalopathy from meds (benzo, baclofen) and UTI--reduce benzo, decrease baclofen and continue to monitor, awaitng neuro input as well. <Malcolm Cuevas MD - Last Filed: 09/13/20 13:01>
--- NOTE | 2020-09-13 09:54 | MHC.CM.PN ---
Patient lives in apartment alone; son temporarily living w/her as he indicates she is unable to manage on her own. States she had a VNA nurse but that the nurse does not come in anylonger; the [employer] comes in 1x/wk for cleaning, shopping, etc. Yonis (son) says the only equipment she owns is a hover round and no other walking equipment, as she does not walk. He says that she has been in two nursing homes in past year and that she was D/C'd home 6 months ago. She was in both [facility] and [facility]. He indicates that both him and Amarilys would be amenable to her returning should a PT eval illustrate the need for STR. Yonis said that choice #1 would be [facility] and choice #2 would be [facility]. He said that Amarilys's ultimate goal is to get into [facility]. This CM informed him that the school social worker departments in the SNFs would be able to assist in the transition to that level of care from SNF should Amarilys transition to STR from here and should [facility] find Amarilys an appropriate fit as well as have availability. Plan is home w/services VS SNF (#1=[facility] #2=[facility]). Patient to have a PT eval prior to D/C for safe/confirmed D/C plan. CM to follow.
--- NOTE | 2020-09-13 10:10 | MHC.CM.PN ---
Referrals sent w/request to please follow for plan of care and D/C readiness. Notified Centers of patient's order of preference as well: #1= Nicole Mercedes and #2= [facility]. CM to follow.
[2020-09-13 11:03] LABS: Glucose, Whole Blood 115 mg/dL (60-115)
[2020-09-13 11:21] VITALS: BP 157/75; PULSE 70; RESP 20; TEMP 36.4; O2SAT 93
--- NOTE | 2020-09-13 14:36 | PC.NURSE ---
pt alert to self only. When we ask where she is she states holy but nothing further. States she doesnt know the time. doesn't know how she got here or anything. I talked to pt son on phone - states pt normally alert and oriented fully without any confusion. Has an aide to help with housework, does everything else including meds on own. Pt son says this is how she presents and then shell come out of it Pt uses motorized w/c at home does not walkl at baseline per son. Pt lethargic in am, shaking pt to come awake - then only answering yes or no questions. Unable to give pt morning meds. In afternoon pt woke up, had some lunch, pleasant but still confused. No complaints. Fell back asleep after lunch. Telesitter in room. high fall risk measures in place
[2020-09-13 15:26] VITALS: BP 144/61; PULSE 68; RESP 18; TEMP 37.4; O2SAT 92
[2020-09-13] MEDS: Pregabalin 100 MG CAPSULE PO ×2 (15:47→22:50)
[2020-09-13 16:40] LABS: Glucose, Whole Blood 137 mg/dL (60-115)
[2020-09-13 19:28] VITALS: BP 158/72; PULSE 75; RESP 18; TEMP 37.7; O2SAT 94
[2020-09-13 20:12] LABS: Glucose, Whole Blood 129 mg/dL (60-115)
[2020-09-13] MEDS: Enoxaparin Sodium 40 MG/0.4 ML SYRINGE SUBCUT (21:27)
[2020-09-13] MEDS: Atorvastatin Calcium 10 MG TABLET PO (22:49)
[2020-09-13] MEDS: Baclofen 10 MG TABLET 5 MG PO (22:49)
[2020-09-13] MEDS: clonazePAM 0.5 MG TABLET PO (22:50)
[2020-09-14] VITALS (8 sets, daily range): BP systolic 133–164; BP diastolic 60–76; PULSE 54–75; RESP 16–20; TEMP 36.3–37.3; O2SAT 93–98; BMI 32.3
[2020-09-14 07:19] LABS: Glucose, Whole Blood 112 mg/dL (60-115)
[2020-09-14] MEDS: Baclofen 10 MG TABLET 5 MG PO ×2 (09:04→21:59)
[2020-09-14] MEDS: 0.9 % Sodium Chloride Flush 3 ML SYRINGE IVFLUSH ×2 (09:04→22:11)
[2020-09-14] MEDS: Pregabalin 100 MG CAPSULE PO ×3 (09:04→21:59)
[2020-09-14] MEDS: Furosemide 20 MG TABLET PO (09:04)
[2020-09-14] MEDS: Escitalopram Oxalate 10 MG TABLET PO (09:05)
[2020-09-14] MEDS: amLODIPine Besylate 10 MG TABLET PO (09:05)
[2020-09-14] MEDS: clonazePAM 0.5 MG TABLET PO ×2 (09:05→21:59)
--- NOTE | 2020-09-14 10:14 | HO.PM.IMPN ---
Subjective Subjective Date of Service: 09/14/20 <ALYSSA Rothman - Last Filed: 09/14/20 10:20> 09/14/20 <Anthony Basilio MD - Last Filed: 09/14/20 13:32> Interval History: f/u encephalopathy Much more awake this morning, alert and able to answer all questions appropriately No overnight events No specific complaints ROS: Cardiovascular-no chest pain, no palpitations Pulmonary-no shortness of breath, no cough Constitutional-no fever no chills <ALYSSA Rothman - Last Filed: 09/14/20 10:20> Review of Systems Review of Systems: Yes all other systems are reviewed and are negative <ALYSSA Rothman - Last Filed: 09/14/20 10:20> Physical Exam Vital Signs: Vital Signs: Last Vital Signs Temp 98.2 F 09/14/20 07:30 Pulse 59 09/14/20 09:05 Resp 18 09/14/20 07:30 BP 145/67 H 09/14/20 09:05 Pulse Ox 98 09/14/20 07:30 Body Mass Index 32.3 <ALYSSA Rothman - Last Filed: 09/14/20 10:20> Const: Other: awake, alert, oriented to person, place and time <ALYSSA Rothman - Last Filed: 09/14/20 10:20> Nutritional Appearance: well nourished <ALYSSA Rothman - Last Filed: 09/14/20 10:20> HENMT: Head: Yes normocephalic and Yes atraumatic <ALYSSA Rothman - Last Filed: 09/14/20 10:20> Eyes: Sclerae: sclerae normal <ALYSSA Rothman - Last Filed: 09/14/20 10:20> Chest: Chest palpation & inspection: normal inspection of the chest <ALYSSA Rothman Last Filed: 09/14/20 10:20> Resp: Effort & Inspection: normal respiratory effort and no respiratory distress <ALYSSA Rothman Last Filed: 09/14/20 10:20> Cardio: Rate: regular rate <ALYSSA Rothman - Last Filed: 09/14/20 10:20> Rhythm: regular rhythm <ALYSSA Rothman - Last Filed: 09/14/20 10:20> GI: Palpation (GI): Soft to palpation and nontender <ALYSSA Rothman - Last Filed: 09/14/20 10:20> Extrem: General: Yes normal to inspection <ALYSSA Rothman - Last Filed: 09/14/20 10:20> Objective Data Current Medications Generic Name Dose Route Start Last Admin Trade Name Freq PRN Reason Stop Dose Admin Acetaminophen 650 mg 09/12/20 19:06 Acetaminophen Supp 650 Mg Supp.Rect NC Q6H PRN Pain, Mild (Pain Scale 1-3) Albuterol Sulfate 2 puff 09/12/20 17:41 Albuterol Sulfate 90 Mcg 8 Gm Inhaler INHALE Q6H PRN Shortness Of Breath Or Wheezing Amlodipine Besylate 10 mg 09/13/20 09:00 09/14/20 09:05 Amlodipine Besylate 10 Mg Tablet PO 10 mg DAILY DANELLE Administration Protocol Atorvastatin Calcium 10 mg 09/13/20 21:00 09/13/20 22:49 Atorvastatin Calcium 10 Mg Tablet PO 10 mg BEDTIME DANELLE Administration Baclofen 5 mg 09/13/20 21:00 09/14/20 09:04 Baclofen 10 Mg Tablet PO 5 mg BID DANELLE Administration Clonazepam 0.5 mg 09/13/20 21:00 09/14/20 09:05 Clonazepam 0.5 Mg Tablet PO 0.5 mg BID DANELLE Administration Enoxaparin Sodium 40 mg 09/12/20 20:00 09/13/20 21:27 Enoxaparin Sodium 40 Mg/0.4 Ml Syringe SUBCUT 40 mg Q24H DANELLE Administration Escitalopram Oxalate 10 mg 09/13/20 09:00 09/14/20 09:05 Escitalopram Oxalate 10 Mg Tablet PO 10 mg DAILY DANELLE Administration Furosemide 20 mg 09/13/20 09:00 09/14/20 09:04 Furosemide 20 Mg Tablet PO 20 mg DAILY DANELLE Administration Protocol Ceftriaxone Sodium 1 gm/ 50 mls @ 100 mls/hr 09/12/20 20:00 09/13/20 22:00 Sodium Chloride IV Infused Q24H DANELLE Infusion Insulin Human Lispro 0 unit 09/12/20 21:00 09/14/20 07:48 Insulin Lispro 100 Unit/Ml 3 Ml Vial SUBCUT Not Given QIDACHS [facility] [place] Protocol Ondansetron HCl 4 mg 09/12/20 19:06 Ondansetron Hcl 4 Mg/2 Ml Vial IVPUSH Q8H PRN Nausea and Vomiting Pregabalin 100 mg 09/12/20 21:00 09/14/20 09:04 Pregabalin 100 Mg Capsule PO 100 mg TID DANELLE Administration Sodium Chloride 3 ml 09/13/20 00:00 09/14/20 09:04 0.9 % Sodium Chloride Flush 3 Ml Syringe IVFLUSH 3 ml QSHIFT DANELLE Administration Trazodone HCl 150 mg 09/12/20 21:00 09/12/20 20:13 Trazodone Hcl 50 Mg Tablet PO 150 mg BEDTIME DANELLE Administration <ALYSSA Rothman - Last Filed: 09/14/20 10:20> Labs CBC & Chem 7: : 09/12/20 13:22 09/12/20 13:22 <ALYSSA Rothman - Last Filed: 09/14/20 10:20> Microbiology Microbiology Results: Microbiology 09/12/20 13:50 Blood - Venous Blood Culture - Preliminary No growth after 24 hours. 09/12/20 13:50 Blood - Venous Blood Culture - Preliminary No growth after 24 hours. 09/12/20 Unknown Urine clean catch - Clean Catch Midstream Urine Culture - Preliminary Culture in progress. <ALYSSA Rothman - Last Filed: 09/14/20 10:20> Assessment and Plan (1) Fall: Status: Acute <ALYSSA Rothman - Last Filed: 09/14/20 10:20> (2) Altered mental status: Status: Acute <ALYSSA Rothman - Last Filed: 09/14/20 10:20> (3) Acute UTI: Status: Acute <ALYSSA Rothman - Last Filed: 09/14/20 10:20> Assessment and Plan: This is a 74 year old female with history of afib on pradaxa, HTN, HLD, frequent UTIs who is brought to the emergency department due to increasing confusion Toxic metabolic encephalopathy Likely mutlifactorial related to UTI given previous history, although UA is not highly suggestive of UTI but this may be due to daily nitrofurantoin. Also on multiple medications that can contribute to confusion. Brain CT negative -Continue IV ceftriaxone D#3, Follow urine cultures -Will decrease doses of klonopin and baclofen Elevated troponin remains flat, no chest discomfort no further cardiac workup at this time. DM -hold metformin -continue Lantus -SSI, POC Atrial fibrillation. ran out of her Pradaxa 3 days ago. unclear if was stopped by pcp will order PT eval, then she can be placed back on Pradaxa. Dyslipidemia. Continue statins. CPK is within normal range. Hypertension. continue Norvasc, lasix Mood Continue lexapro, klonopin Chronic pain Lyrica, baclofen Dispo: PT eval pending. Lives alone ?need for more services at home vs STR DVT prophylaxis. Dominicx, previously was on Pradaxa. If PT eval is unremarkable, we will resume Pradaxa Attending: Dr. Basilio <ALYSSA Rothman - Last Filed: 09/14/20 10:20>
[2020-09-14 11:08] LABS: Glucose, Whole Blood 169 mg/dL (60-115)
[2020-09-14] MEDS: Insulin Lispro 100 UNIT/ML 3 ML VIAL SUBCUT ×2 (11:35→22:00)
[2020-09-14] MEDS: Ampicillin Sodium 1 GM in 0.9 % Sodium Chloride 100 ML IV ×2 (14:19→22:00)
[2020-09-14 15:59] LABS: Glucose, Whole Blood 142 mg/dL (60-115)
--- NOTE | 2020-09-14 18:49 | PC.NURSE ---
Patient more alert today, alert and oriented to self, time, and place, confused re situation, continuously asking why she is here. PT eval pending. Social work to be consulted re home situation for potential additional home services/placement.
[2020-09-14] MEDS: Enoxaparin Sodium 40 MG/0.4 ML SYRINGE SUBCUT (19:55)
[2020-09-14 20:09] LABS: Glucose, Whole Blood 188 mg/dL (60-115)
[2020-09-14] MEDS: Atorvastatin Calcium 10 MG TABLET PO (21:59)
[2020-09-15 03:45] VITALS: BP 146/63; PULSE 54; RESP 18; TEMP 37.1; O2SAT 93
[2020-09-15] MEDS: Ampicillin Sodium 1 GM in 0.9 % Sodium Chloride 100 ML IV (05:41)
[2020-09-15 06:00] VITALS: BMI 33.0
[2020-09-15 07:19] LABS: Glucose, Whole Blood 131 mg/dL (60-115)
[2020-09-15 07:41] VITALS: BP 144/71; PULSE 57; RESP 18; TEMP 36.7; O2SAT 98
[2020-09-15 08:42] VITALS: BP 144/71; PULSE 57
[2020-09-15] MEDS: clonazePAM 0.5 MG TABLET PO (08:42)
[2020-09-15] MEDS: Furosemide 20 MG TABLET PO (08:42)
[2020-09-15] MEDS: Pregabalin 100 MG CAPSULE PO (08:42)
[2020-09-15] MEDS: 0.9 % Sodium Chloride Flush 3 ML SYRINGE IVFLUSH (08:42)
[2020-09-15] MEDS: amLODIPine Besylate 10 MG TABLET PO (08:42)
[2020-09-15] MEDS: Baclofen 10 MG TABLET 5 MG PO (08:43)
[2020-09-15] MEDS: Escitalopram Oxalate 10 MG TABLET PO (08:43)
--- NOTE | 2020-09-15 11:03 | PC.NURSE ---
Bladder Scan is 74 ML.
[2020-09-15 11:20] LABS: Glucose, Whole Blood 191 mg/dL (60-115)
[2020-09-15 11:35] VITALS: BP 140/68; PULSE 57; RESP 18; TEMP 36.7; O2SAT 98
--- NOTE | 2020-09-15 12:12 | MHC.CM.PN ---
per rounds dc date undetermined at this time pt is new to dialysis
[2020-09-15] MEDS: Insulin Lispro 100 UNIT/ML 3 ML VIAL SUBCUT (12:49)
--- NOTE | 2020-09-15 13:25 | PM.DS ---
DS: Providers Provider Date of Service: 09/15/20 Date of admission: 09/12/20 17:37 Primary care physician: Erlin Diaz PA-C DS: Diagnosis Discharge Diagnosis (1) Fall: Status: Acute (2) Altered mental status: Status: Acute (3) Acute UTI: Status: Acute DS: Medications Discharge Medications Home Medications: Home Medications Medication Instructions Recorded Confirmed furosemide 20 mg tablet 20 mg PO DAILY 05/13/20 09/12/20 albuterol sulfate 90 mcg/actuation 2 puff INHALATION Q6H PRN 06/18/20 09/12/20 aerosol inhaler acetaminophen [Acetaminophen Extra 500 mg PO Q8H PRN 09/12/20 09/12/20 Strength] Previous Rx's Medication Instructions Recorded escitalopram oxalate 10 mg tablet 10 mg PO DAILY #30 tab 05/03/20 metformin 500 mg tablet 500 mg PO BID #180 tab 05/25/20 trazodone 50 mg tablet 150 mg PO BEDTIME #90 tab 06/26/20 pregabalin 100 mg capsule 100 mg PO TID 30 Days #90 cap 09/08/20 amlodipine 10 mg tablet 10 mg PO DAILY #90 tab 09/14/20 dabigatran etexilate 150 mg capsule 150 mg PO BID #180 cap 09/14/20 simvastatin 10 mg tablet 10 mg PO BEDTIME #90 tab 09/14/20 Lantus Solostar U-100 Insulin 20 unit SUBCUT BEDTIME #12 ml 09/15/20 amoxicillin 500 mg PO Q8H #18 cap 09/15/20 baclofen 5 mg PO BID 30 Days #60 tab 09/15/20 clonazepam 0.5 mg PO BID #0 tab 09/15/20 DS: Summary Hospital Course Hospital Course: History of presenting illness 74-year-old female patient with multiple prior hospitalization with similar presentation. As per patient's son, she was found on the ground next to her chair. Son last saw her at 9 p.m., and then went back to check up on her this morning and she was lying on the floor, confused. On looking into her prior record, it seems that the patient has had multiple similar hospitalization in 2019. During dose hospitalization, the patient was found to have urinary tract infection as well as rhabdomyolysis and required treatment with IV antibiotics. At present, the patient remains pleasantly confused, keeps repeating, and not able to answer any question. According to the son, the patient otherwise has been taking care of herself, taking her medication, and not confused, at baseline. In the emergency room, workup revealed an elevated troponin 39.5, blood sugar is stable at 137. Urine wbc's 10 to 14 with trace bacteria. Imaging studies including head CT and C-spine are both negative with no evidence of bleeding. There is no evidence of fall with no bruising. The patient is moving all 4 extremities. PAST MEDICAL HISTORY: 1. Significant for atrial fibrillation, on Pradaxa. The patient filled Pradaxa 3 months ago and her prescription ended on September 07. 2. History of type 2 diabetes mellitus, on insulin. 3. History of hypertension. 4. History of dyslipidemia. 5. History of anxiety. 6. History of coronary artery disease. 7. History of chronic diastolic congestive heart failure. 8. History of schizoaffective disorder. 9. History of osteoarthritis. 10. History of breast cancer. Hospital course 74 year old female with history of afib on pradaxa, HTN, HLD, frequent UTIs who is brought to the emergency department due to increasing confusion Toxic metabolic encephalopathy Patient was admitted with altered mental status, most likely mutlifactorial related to UTI, urine culture grew Enterococcus, patient has been placed on amoxicillin for total 7 day treatment, also patient on multiple medications that can contribute to confusion therefore dose of Klonopin reduced to 0.5 mg b.i.d. and baclofen dose reduced to [address] negative Patient recommended to resume dose of nitrofurantoin after finishing treatment for acute infection, recommended follow-up with PCP in 1 week Elevated troponin remains flat, no chest discomfort,no further cardiac workup warranted at this time. DM recommended to reduce Lantus to avoid hypoglycemia Atrial fibrillation. ran out of her Pradaxa 3 days ago, recommend to follow-up with PCP and resume Pradaxa. Dyslipidemia. Continue statins. CPK is within normal range. Hypertension. continue Norvasc, lasix Time Spent with Patient Time attestation: Total time spent providing and/or coordinating discharge services: Discharge coordination time: Greater than 30 minutes Physical Exam Vital Signs: Vital Signs: Last Vital Signs Temp 98.0 F 09/15/20 11:35 Pulse 57 09/15/20 11:35 Resp 18 09/15/20 11:35 BP 140/68 H 09/15/20 11:35 Pulse Ox 98 09/15/20 11:35 Body Mass Index 33.0 General no acute distress. Neck is supple no JVD. CVS regular rate rhythm, Respiratory lungs clear to auscultation, no respiratory distress, no wheeze, no rhonchi. Gastrointestinal abdomen soft, nontender, bowel sounds audible, no guarding , no rigidity. Extremities no edema. Neuro nonfocal ,speech clear. Skin no rash DS: Data Data Completed and Pending Labs on day of discharge: Laboratory Results - last 24 hr 09/14/20 09/14/20 09/15/20 15:50 20:00 07:10 POC Glucose 142 H 188 H 131 H 09/15/20 11:11 POC Glucose 191 H Preliminary micro results at discharge 09/12/20 13:50 Blood Culture - Preliminary Blood - Venous No growth after 48 hours. 09/12/20 13:50 Blood Culture - Preliminary Blood - Venous No growth after 48 hours. Discharge Plan Discharge Patient Disposition: Home Health Service Referrals: Dexter Moreno [Outside] [facility] [Outside] Erlin Diaz PA-C [Primary Care Provider] - Discharge Medications: New amoxicillin 500 mg capsule 500 mg PO Q8H Qty: 18 RF: 0 Continued escitalopram oxalate 10 mg tablet 10 mg PO DAILY Qty: 30 RF: 3 furosemide 20 mg tablet 20 mg PO DAILY RF: 0 metformin 500 mg tablet 500 mg PO BID Qty: 180 RF: 2 albuterol sulfate 90 mcg/actuation HFA aerosol inhaler 2 puff inhalation Q6H PRN (Reason: Shortness Of Breath Or Wheezing) RF: 0 trazodone 50 mg tablet 150 mg PO BEDTIME Qty: 90 RF: 3 pregabalin 100 mg capsule 100 mg PO TID 30 Days Qty: 90 RF: 3 amlodipine 10 mg tablet 10 mg PO DAILY Qty: 90 RF: 0 dabigatran etexilate [Pradaxa] 150 mg capsule 150 mg PO BID Qty: 180 RF: 0 simvastatin 10 mg tablet 10 mg PO BEDTIME Qty: 90 RF: 0 acetaminophen [Acetaminophen Extra Strength] 500 mg tablet 500 mg PO Q8H PRN (Reason: Fever) RF: 0 Changed clonazepam 1 mg tablet 0.5 mg PO BID Qty: 0 RF: 0 baclofen 10 mg tablet 5 mg PO BID 30 Days Qty: 60 RF: 1 Lantus Solostar U-100 Insulin 100 unit/mL (3 mL) insulin pen 20 unit subcut BEDTIME Qty: 12 RF: 3 Discontinued nitrofurantoin macrocrystal 100 mg capsule 100 mg PO DAILY 30 Days Qty: 30 RF: 0 Discharge Orders: Discharge Order (Routine); Ordered 09/15/20 Ordered By: Anthony Basilio Diet: diabetic diet Activity on Discharge: As tolerated Stand Alone Forms: Patient Portal Discharge page Care Plan Goals: Follow-up with primary care physician, needs prescription for Pradaxa a new prescription for reduce dose of Klonopin and baclofen, resume prophylactic antibiotic After finishing course of amoxicillin. Health Concerns: Encephalopathy/recurrent UTI, take Klonopin half tablet 0.5 mg b.i.d. and reduce dose of baclofen to 5 mg b.i.d. Plan of Treatment: Outpatient follow-up with primary care physician/home PT
--- NOTE | 2020-09-15 16:41 | PC.NURSE ---
discussed with patient about a need to relook at her living situation. she lives on the 3rd floor and is unable to use staircase and is wheelchair bound. She states that she does not want to leave and that her sone and grandson take good care of her. Encouraged her to at least start thinking about it. patient agrees. dc'd to home
== END 2020-09-15 16:44 | disposition home health service (06) | DRG 689 ==
LOC: HO.ED 17:26 → HO.EDOVER 17:49 → HO.IMC 18:29
PROVIDERS: Internal Medicine; Nurse Practitioner Primary Care; Admitting Provider Hospitalist; Emergency Provider Emergency Medicine; PCP Physician Assistant; Visit Provider Hospitalist
DX: N39.0 Urinary tract infection, site not specified (principal); G92 Toxic encephalopathy; I48.91 Unspecified atrial fibrillation; B95.2 Enterococcus as the cause of diseases classified elsewhere; G89.29 Other chronic pain; I25.10 Atherosclerotic heart disease of native coronary artery without angina pectoris; F20.9 Schizophrenia, unspecified; Z87.440 Personal history of urinary (tract) infections; Z91.81 History of falling; Z20.822 Contact with and (suspected) exposure to COVID-19; Z88.0 Allergy status to penicillin; Z79.4 Long term (current) use of insulin; Z79.899 Other long term (current) drug therapy
CPT/HCPCS: 36415; 70450; 71045; 72125; 80053; 81001; 82550; 82947; 83605; 83880; 84484; 85025; 85610; 85730; 87040; 87086; 87088; 87186; 87635; 93005; 97162; 99285; J0290; J0696; J1650

== ENCOUNTER 2020-09-23 08:48 | Outpatient (REF) | payer MEDICARE, MEDICAID, SELFPAY | END 2020-09-23 08:49 | disposition home or self-care (01) | LOC: HO.HAP 08:48 | PROVIDERS: Visit Provider Physician Assistant | DX: Z13.89 Encounter for screening for other disorder (principal) ==

== ENCOUNTER 2020-10-24 13:30 | Outpatient (REF) | payer MEDICARE, MEDICAID, SELFPAY ==
[2020-10-24 13:58] LABS: Glucose Urine UA 500 MG/DL (NEG); Leukocyte Esterase Urine NEG (NEG); Nitrite Urine NEG (NEG); Urine Blood NEG (NEG); Urine Ketones NEG (NEG); Urine Protein NEG (NEG-TRACE)
[2020-10-24 14:01] LABS: Appearance Urine CLEAR; Color Urine YELLOW
== END 2020-10-24 13:31 | disposition home or self-care (01) ==
LOC: HO.LNP 13:30
PROVIDERS: Visit Provider Physician Assistant
DX: N39.0 Urinary tract infection, site not specified (principal); R30.0 Dysuria
CPT/HCPCS: 81003

== ENCOUNTER 2021-01-09 16:02 | Inpatient (IN) | payer MEDICARE, MEDICAID, SELFPAY ==
--- NOTE | ~2021-01-09 | XR_ITS ---
EXAMINATION: XR CHEST CLINICAL INFORMATION: AMS. COMPARISON: Chest 09/12/2020. TECHNIQUE: Frontal view of the chest was obtained. FINDINGS: The lungs are well-expanded and clear of acute pneumonic process. The heart size is normal. Slight increased perivascular markings are noted but no congestion seen.. There is mild dextroscoliosis of the dorsal spine XR/XR chest 1V IMPRESSION: Mild increased pulmonary vascular markings without congestion, no change from previous study.
--- NOTE | ~2021-01-09 | XR_ITS ---
EXAMINATION: XR CHEST CLINICAL INFORMATION: Hypoxia. COMPARISON: 01/09/2021 portable chest. TECHNIQUE: Frontal view of the chest was obtained. FINDINGS: There is mild elevation of the right hemidiaphragm. Mild superjacent curvilinear markings are seen. Minimal linear markings are seen at the left lung base. The upper lung randle are clear. The heart and mediastinal structures are unremarkable. XR/XR chest 1V IMPRESSION: Mild right basilar atelectasis. Minimal left basilar atelectasis versus scarring. No acute cardiopulmonary process.
--- NOTE | ~2021-01-09 | CT_ITS ---
EXAMINATION: CT HEAD WITHOUT CONTRAST CLINICAL INFORMATION: Fall on blood thinning medicine COMPARISON: Previous head CT most recent August 2020 TECHNIQUE: Contiguous axial imaging was performed from the skull base to vertex without intravenous administration of contrast. This CT examination was performed using dose optimization techniques as appropriate, variously including the following: *Automated exposure control *Adjustment of mA and/or kV according to patient size (this includes techniques or standardized protocols for targeted exams where dose is matched to indication/reason for exam; i.e. extremities or head) *Use of iterative reconstruction technique DLP: 638 mGy-cm FINDINGS: There is no evidence of an extra-axial collection. There is no evidence of intra-axial or extra-axial hemorrhage. There is age-appropriate prominence of the ventricles and extra-axial CSF spaces. There is nonspecific periventricular white matter disease. No mass, mass effect or infarct is seen. There is evidence of atherosclerotic disease. No skull fracture is seen. Visualized paranasal sinuses, mastoid air cells and middle ears are clear. CT/CT head/brain wo con IMPRESSION: No evidence of hemorrhage. No acute findings.
--- NOTE | 2021-01-09 16:04 | ED_ITS ---
HPI - Altered Mental Status General Chief Complaint: General Medical Stated Complaint: ams, found on floor Time Seen by Provider: 01/09/21 16:23 Source: patient and EMS Mode of arrival: EMS Limitations: altered mental status History of Present Illness HPI narrative: EMS notes they were called for a lift assist on scene EMS and the FD had a disagreement over the patient's mental status - EMS notes she was never altered with them but the fire departmetn stated she was. the patient has no complaints, states she slipped getting up from her commode, has no complaints, EMS asked her son why he called 911 and he stated as well it was for a lift assist MD complaint: weakness Onset (ago): month(s) Severity: mild Consistency of symptoms: waxing and waning Context: other (couldn't get off the ground on her own) Associated symptoms: denies other symptoms Related Data Home Medications Medication Instructions Recorded Confirmed albuterol sulfate 90 mcg/actuation 2 puff INHALATION Q6H PRN 06/18/20 01/09/21 aerosol inhaler Lantus Solostar U-100 Insulin 30 unit SUBCUT BEDTIME 01/09/21 01/09/21 Previous Rx's Medication Instructions Recorded escitalopram oxalate 10 mg tablet 10 mg PO DAILY #30 tab 05/03/20 metformin 500 mg tablet 500 mg PO BID #180 tab 05/25/20 pregabalin 100 mg capsule 100 mg PO TID 30 Days #90 cap 09/08/20 amlodipine 10 mg tablet 10 mg PO DAILY #90 tab 09/14/20 dabigatran etexilate 150 mg capsule 150 mg PO BID #180 cap 09/14/20 simvastatin 10 mg tablet 10 mg PO BEDTIME #90 tab 09/14/20 amoxicillin 500 mg capsule 500 mg PO DAILY 30 Days #30 cap 11/20/20 furosemide 20 mg tablet 20 mg PO DAILY 90 Days #90 tab 11/20/20 trazodone 50 mg tablet 150 mg PO BEDTIME #90 tab 11/20/20 clonazepam 1 mg tablet 1 mg PO BID 30 Days #60 tab 12/09/20 Allergies Allergy/AdvReac Type Severity Reaction Status Date / Time amoxicillin [Augmentin] Allergy Unknown Diarrhea Verified 11/20/20 10:39 clavulanic acid [Augmentin] Allergy Unknown Diarrhea Verified 11/20/20 10:39 Iodinated Contrast Media Allergy Unknown THROAT Verified 11/20/20 10:39 [IV Dye, Iodine Containing CLOSES Contrast ] UP/SWELLIN iodine [IODINE] Allergy Unknown ANAPHYLAXIS Verified 11/20/20 10:39 lisinopril [LISINOPRIL] Allergy Unknown UNKNOWN, Verified 11/20/20 10:39 cough, cough prednisone [PREDNISONE] Allergy Unknown INCREASE Verified 11/20/20 10:39 BLOOD PRESSURE quetiapine [From SEROQUEL] Allergy Unknown SWELLING Verified 11/20/20 10:39 X-ray dye Allergy Unknown Facial Verified 11/20/20 10:39 swelling/ trouble breathing Review of Systems Review of Systems: Constitutional : No Weight loss, No Fever, No Chills, No Fatigue, No Malaise ENT/Mouth : No sore throat, No Rhinorrhea Eyes: No Eye Pain, No Swelling, No Redness Cardiovascular : No Chest Pain, No SOB, No Dyspnea on Exertion, No Orthopnea, No Edema, No Palpitations Respiratory : No Cough, No Sputum, No Wheezing Gastrointestinal : No Nausea, No Vomiting, No Diarrhea, No Constipation, No abdominal Pain, No Hematochezia, No Melena Genitourinary : No Dysuria, No Urinary Frequency, No Hematuria, Musculoskeletal : No joint pain, No Myalgias, No Joint Swelling Skin : No Skin Lesions, No rash Neuro : No Weakness, No Numbness, No Dizziness, No Headache Psych : No Anxiety/Panic, No Depression Heme/Lymph: No Bruising, No Bleeding,No Lymphadenopathy Endocrine : No Polyuria, No Polydipsia All other systems reviewed and are negative [facility] Past Medical History Attestation statement: The following information was validated with the patient. Medical History Derangement of left knee Hypercholesterolemia Lumbar degenerative disc disease Surgical History History of lumpectomy of right breast History of tubal ligation Family History Family History Father Diabetes Heart disease Mother Heart disease Son Opiate addiction Social History Social History Household Members: Unknown / Unable to assess Household Members Other:: Brought to ER by son with whom she lives Housing: House Do you presently have visiting nurse or other home services: Yes ([facility] what services if any) Alcohol intake: never Patient Tobacco Use Status: Never used Tobacco Use of substances other than those prescribed or required for medical reasons: No Advance Directives: No Advance Directives Information Provided: Yes Physical Exam Vital Signs: Vital Signs: Last Vital Signs Temp 98.8 F 01/09/21 16:24 Pulse 73 01/09/21 20:00 Resp 15 01/09/21 20:00 BP 104/34 L 01/09/21 20:00 Pulse Ox 98 01/09/21 20:00 Body Mass Index 67.0 Appearance: Alert. Oriented X3. No acute distress. Eyes: Pupils equal, round and reactive to light. ENT: Pharynx normal. Neck: Normal inspection. Neck supple. CVS: Normal heart rate and rhythm. Pulses normal. Respiratory: No respiratory distress. Breath sounds normal. Abdomen: Soft and nontender. Skin: Skin warm and dry. Normal skin color. Normal skin turgor. Extremities: 1 to 2+ pitting LE bilateral No calf ttp Neuro: Oriented X 3. No motor deficit. No sensory deficit. Course Course Course Narrative: son states the patient is confused and notes that she could have UTI as this has happened in the past to her with same presentation NO SOURCE OF INFECTION AT THIS TIME HYPOTENSION LIKELY RELATED TO DEHYDRATION AND FTT NOT INFECTION OR SEVERE SEPSIS, ANAEBLL DUE TO DEHYDRATION AND NOT INFECTION OR SEVERE SEPSIS 2nd trop flat no CP/SOB MDM - Altered Mental Status MDM Narrative Medical decision making narrative: 75 yo female with hx of HLD, DM, HTN, anxiety, lower extremity edema - is on pradaxa she did fall on the ground given this will obtain CT head and have case management involved as the patient does not want to be here and has no complaints, unsure if this call was just a lift assist, she is alert and oriented x 3 on arrival to ED and having normal appropriate conversations Lab Data Result diagrams: 01/09/21 17:13 01/09/21 17:13 Labs: Lab Results 01/09/21 01/09/21 01/09/21 Range/Units 17:13 17:13 17:13 WBC 7.5 (4.8-10.8) X10*3/uL RBC 3.43 L (4.20-5.50) X10*6/uL Hgb 10.5 L (12.0-16.0) g/dl Hct 32.4 L (37-47) % MCV 94.5 (80-98) fL MCH 30.6 (27.0-33.0) pg MCHC 32.4 (31.0-35.0) g/dl RDW 14.2 (11.0-16.0) % Plt Count 203 (160-400) X10*3/uL MPV 9.1 L (9.4-12.3) fL Immature Gran % (Auto) 0.3 (0.0-0.4) % Neut % (Auto) 70.1 (45-73) % Lymph % (Auto) 18.7 L (20-40) % [place] % (Auto) 9.9 (2-11) % Eos % (Auto) 0.7 (0-4) % Baso % (Auto) 0.3 (0-2) % Lymph # (Auto) 1.4 (1.2-4.9) X10*3/uL [place] # (Auto) 0.7 (0.1-1.2) X10*3/uL Eos # (Auto) 0.1 (0.0-0.4) X10*3/uL Baso # (Auto) 0.0 (0.0-0.2) X10*3/uL Abs Immat Gran (auto) 0.02 (0.00-0.03) X10*3/uL Absolute Neuts (auto) 5.2 (2.0-8.3) X10*3/uL Absolute Nucleated RBC 0.000 (0.0-0.012) X10*3/uL Nucleated RBC % (auto) 0.0 (0.0-0.2) /100WBC PT (9.9-13.0) SEC INR (0.9-1.1) APTT (24.1-38.0) SEC VBG pH (7.32-7.43) VBG pCO2 mmHg VBG pO2 mmHg VBG HCO3 (22-26) mmol/L VBG O2 Saturation % VBG Base Excess mmol/L Sodium 139 (135-145) mmol/L Potassium 3.6 (3.3-5.1) mmol/L Chloride 100 (96-108) mmol/L Carbon Dioxide 27 (22-29) mmol/L Anion Gap 16 (12-20) BUN 14 (9-16) mg/dL Creatinine 1.57 H (0.5-1.4) mg/dL Estim Creat Clear Calc 58.7 Estimated GFR 32 Random Glucose 151 H (60-115) mg/dL Lactic Acid 1.1 (0.5-2.0) mmol/L Calcium 8.1 L D (8.4-10.2) mg/dL Magnesium (1.6-2.6) mg/dL Total Bilirubin (0.0-1.0) mg/dL Direct Bilirubin (0.0-0.5) mg/dL AST (5-31) U/L ALT (0-31) U/L Alkaline Phosphatase (39-117) U/L Total Creatine Kinase (26-140) U/L Troponin I High Sens (<3.5-17.0) ng/L B-Natriuretic Peptide (<100) pg/mL Total Protein (6.5-8.0) g/dL Albumin (3.5-5.0) g/dL Lipase 14 (8-78) U/L Urine Color Urine Appearance Urine pH (5.0-8.0) Ur Specific [place] (1.005-1.025) Urine Protein (NEG-TRACE) MG/DL Urine Glucose (UA) (NEG) MG/DL Urine Ketones (NEG) MG/DL Urine Blood (NEG) Urine Nitrite (NEG) Ur Leukocyte Esterase (NEG) Urine RBC (0) /HPF Urine WBC (0-4) /HPF Ur Squamous Epith Cells /LPF Urine Bacteria /LPF Hyaline Casts /LPF COVID-19 (ELLEN) (Negative) COVID-19 Clin Com 01/09/21 01/09/21 01/09/21 Range/Units 17:13 17:13 17:13 WBC (4.8-10.8) X10*3/uL RBC (4.20-5.50) X10*6/uL Hgb (12.0-16.0) g/dl Hct (37-47) % MCV (80-98) fL MCH (27.0-33.0) pg MCHC (31.0-35.0) g/dl RDW (11.0-16.0) % Plt Count (160-400) X10*3/uL MPV (9.4-12.3) fL Immature Gran % (Auto) (0.0-0.4) % Neut % (Auto) (45-73) % Lymph % (Auto) (20-40) % [place] % (Auto) (2-11) % Eos % (Auto) (0-4) % Baso % (Auto) (0-2) % Lymph # (Auto) (1.2-4.9) X10*3/uL [place] # (Auto) (0.1-1.2) X10*3/uL Eos # (Auto) (0.0-0.4) X10*3/uL Baso # (Auto) (0.0-0.2) X10*3/uL Abs Immat Gran (auto) (0.00-0.03) X10*3/uL Absolute Neuts (auto) (2.0-8.3) X10*3/uL Absolute Nucleated RBC (0.0-0.012) X10*3/uL Nucleated RBC % (auto) (0.0-0.2) /100WBC PT 19.7 H (9.9-13.0) SEC INR 1.7 H (0.9-1.1) APTT 70.6 H* (24.1-38.0) SEC VBG pH (7.32-7.43) VBG pCO2 mmHg VBG pO2 mmHg VBG HCO3 (22-26) mmol/L VBG O2 Saturation % VBG Base Excess mmol/L Sodium (135-145) mmol/L Potassium (3.3-5.1) mmol/L Chloride (96-108) mmol/L Carbon Dioxide (22-29) mmol/L Anion Gap (12-20) BUN (9-16) mg/dL Creatinine (0.5-1.4) mg/dL Estim Creat Clear Calc Estimated GFR Random Glucose (60-115) mg/dL Lactic Acid (0.5-2.0) mmol/L Calcium (8.4-10.2) mg/dL Magnesium (1.6-2.6) mg/dL Total Bilirubin (0.0-1.0) mg/dL Direct Bilirubin (0.0-0.5) mg/dL AST (5-31) U/L ALT (0-31) U/L Alkaline Phosphatase (39-117) U/L Total Creatine Kinase (26-140) U/L Troponin I High Sens (<3.5-17.0) ng/L B-Natriuretic Peptide 32 (<100) pg/mL Total Protein (6.5-8.0) g/dL Albumin (3.5-5.0) g/dL Lipase (8-78) U/L Urine Color Urine Appearance Urine pH (5.0-8.0) Ur Specific [place] (1.005-1.025) Urine Protein (NEG-TRACE) MG/DL Urine Glucose (UA) (NEG) MG/DL Urine Ketones (NEG) MG/DL Urine Blood (NEG) Urine Nitrite (NEG) Ur Leukocyte Esterase (NEG) Urine RBC (0) /HPF Urine WBC (0-4) /HPF Ur Squamous Epith Cells /LPF Urine Bacteria /LPF Hyaline Casts /LPF COVID-19 (ELLEN) Negative (Negative) COVID-19 Clin Com See Note 01/09/21 01/09/21 01/09/21 Range/Units 17:13 17:13 17:19 WBC (4.8-10.8) X10*3/uL RBC (4.20-5.50) X10*6/uL Hgb (12.0-16.0) g/dl Hct (37-47) % MCV (80-98) fL MCH (27.0-33.0) pg MCHC (31.0-35.0) g/dl RDW (11.0-16.0) % Plt Count (160-400) X10*3/uL MPV (9.4-12.3) fL Immature Gran % (Auto) (0.0-0.4) % Neut % (Auto) (45-73) % Lymph % (Auto) (20-40) % [place] % (Auto) (2-11) % Eos % (Auto) (0-4) % Baso % (Auto) (0-2) % Lymph # (Auto) (1.2-4.9) X10*3/uL [place] # (Auto) (0.1-1.2) X10*3/uL Eos # (Auto) (0.0-0.4) X10*3/uL Baso # (Auto) (0.0-0.2) X10*3/uL Abs Immat Gran (auto) (0.00-0.03) X10*3/uL Absolute Neuts (auto) (2.0-8.3) X10*3/uL Absolute Nucleated RBC (0.0-0.012) X10*3/uL Nucleated RBC % (auto) (0.0-0.2) /100WBC PT (9.9-13.0) SEC INR (0.9-1.1) APTT (24.1-38.0) SEC VBG pH 7.41 (7.32-7.43) VBG pCO2 48 mmHg VBG pO2 39 mmHg VBG HCO3 31 H (22-26) mmol/L VBG O2 Saturation 61.0 % VBG Base Excess 5.5 mmol/L Sodium (135-145) mmol/L Potassium (3.3-5.1) mmol/L Chloride (96-108) mmol/L Carbon Dioxide (22-29) mmol/L Anion Gap (12-20) BUN (9-16) mg/dL Creatinine (0.5-1.4) mg/dL Estim Creat Clear Calc Estimated GFR Random Glucose (60-115) mg/dL Lactic Acid (0.5-2.0) mmol/L Calcium (8.4-10.2) mg/dL Magnesium 1.6 (1.6-2.6) mg/dL Total Bilirubin 0.8 (0.0-1.0) mg/dL Direct Bilirubin 0.3 (0.0-0.5) mg/dL AST 39 H D (5-31) U/L ALT 13 (0-31) U/L Alkaline Phosphatase 56 (39-117) U/L Total Creatine Kinase 879 H D (26-140) U/L Troponin I High Sens 130.4 H* (<3.5-17.0) ng/L B-Natriuretic Peptide (<100) pg/mL Total Protein 7.3 (6.5-8.0) g/dL Albumin 4.0 (3.5-5.0) g/dL Lipase (8-78) U/L Urine Color Urine Appearance Urine pH (5.0-8.0) Ur Specific [place] (1.005-1.025) Urine Protein (NEG-TRACE) MG/DL Urine Glucose (UA) (NEG) MG/DL Urine Ketones (NEG) MG/DL Urine Blood (NEG) Urine Nitrite (NEG) Ur Leukocyte Esterase (NEG) Urine RBC (0) /HPF Urine WBC (0-4) /HPF Ur Squamous Epith Cells /LPF Urine Bacteria /LPF Hyaline Casts /LPF COVID-19 (ELLEN) (Negative) COVID-19 Clin Com 01/09/21 01/09/21 Range/Units 19:47 20:34 WBC (4.8-10.8) X10*3/uL RBC (4.20-5.50) X10*6/uL Hgb (12.0-16.0) g/dl Hct (37-47) % MCV (80-98) fL MCH (27.0-33.0) pg MCHC (31.0-35.0) g/dl RDW (11.0-16.0) % Plt Count (160-400) X10*3/uL MPV (9.4-12.3) fL Immature Gran % (Auto) (0.0-0.4) % Neut % (Auto) (45-73) % Lymph % (Auto) (20-40) % [place] % (Auto) (2-11) % Eos % (Auto) (0-4) % Baso % (Auto) (0-2) % Lymph # (Auto) (1.2-4.9) X10*3/uL [place] # (Auto) (0.1-1.2) X10*3/uL Eos # (Auto) (0.0-0.4) X10*3/uL Baso # (Auto) (0.0-0.2) X10*3/uL Abs Immat Gran (auto) (0.00-0.03) X10*3/uL Absolute Neuts (auto) (2.0-8.3) X10*3/uL Absolute Nucleated RBC (0.0-0.012) X10*3/uL Nucleated RBC % (auto) (0.0-0.2) /100WBC PT (9.9-13.0) SEC INR (0.9-1.1) APTT (24.1-38.0) SEC VBG pH (7.32-7.43) VBG pCO2 mmHg VBG pO2 mmHg VBG HCO3 (22-26) mmol/L VBG O2 Saturation % VBG Base Excess mmol/L Sodium (135-145) mmol/L Potassium (3.3-5.1) mmol/L Chloride (96-108) mmol/L Carbon Dioxide (22-29) mmol/L Anion Gap (12-20) BUN (9-16) mg/dL Creatinine (0.5-1.4) mg/dL Estim Creat Clear Calc Estimated GFR Random Glucose (60-115) mg/dL Lactic Acid (0.5-2.0) mmol/L Calcium (8.4-10.2) mg/dL Magnesium (1.6-2.6) mg/dL Total Bilirubin (0.0-1.0) mg/dL Direct Bilirubin (0.0-0.5) mg/dL AST (5-31) U/L ALT (0-31) U/L Alkaline Phosphatase (39-117) U/L Total Creatine Kinase (26-140) U/L Troponin I High Sens 127.4 H* (<3.5-17.0) ng/L B-Natriuretic Peptide (<100) pg/mL Total Protein (6.5-8.0) g/dL Albumin (3.5-5.0) g/dL Lipase (8-78) U/L Urine Color YELLOW Urine Appearance CLEAR Urine pH 6.0 (5.0-8.0) Ur Specific [place] >= 1.030 H (1.005-1.025) Urine Protein 1+ H (NEG-TRACE) MG/DL Urine Glucose (UA) NEG (NEG) MG/DL Urine Ketones 5 (NEG) MG/DL Urine Blood NEG (NEG) Urine Nitrite NEG (NEG) Ur Leukocyte Esterase NEG (NEG) Urine RBC 0-2 (0) /HPF Urine WBC 1-4 (0-4) /HPF Ur Squamous Epith Cells TRACE /LPF Urine Bacteria NONE /LPF Hyaline Casts 0-2 /LPF COVID-19 (ELLEN) (Negative) COVID-19 Clin Com ECG Data ECG #1: Attestation: I personally reviewed and interpreted this ECG as follows: ECG interpretation date: 01/09/21 ECG interpretation time: 17:28 Interpretation: Rate: 69 Rhythm: regular hard to see p waves ?junctional Leslie: ;eft, LVH Normal QRS complex. ST T wave : nonspecific, no MIRANDA, inverted in lateral leads qTC: normal prior studies: hx of same in the past The study has been interpreted contemporaneously by me. . Discharge Plan Discharge Clinical Impression: ANABELL (acute kidney injury), Acute dehydration, Elevated troponin Patient Disposition: Admitted As Inpatient
[2021-01-09 16:24] VITALS: BP 121/44; PULSE 70; RESP 18; TEMP 37.1; O2SAT 97; BMI 67.0
--- NOTE | 2021-01-09 16:36 | ECG_ITS ---
Test Reason : AMS Blood Pressure : / mmHG Vent. Rate : 069 BPM Atrial Rate : 267 BPM P-R Int : 000 ms QRS Dur : 096 ms QT Int : 408 ms P-R-T Axes : 000 -27 212 degrees QTc Int : 437 ms Poor data quality Possible Normal sinus rhythm Moderate voltage criteria for LVH, may be normal variant Cannot rule out Septal infarct (cited on or before 09-JAN-2021) Abnormal ECG When compared with ECG of 12-SEP-2020 13:11, Questionable change in initial forces of Septal leads Referred By: Faith Mariano Electronically Signed By:GIUSEPPE EUBANKS MD
--- NOTE | 2021-01-09 17:09 | PHA.MEDREC ---
Pharmacy Consult ? Medication Reconciliation Pharmacy has completed the medication reconciliation. There are no remarkable issues for provider's attention. Linnette Mejia, JoseD
[2021-01-09 17:27] LABS: MANUAL DIFF FLAG NO
[2021-01-09 17:30] LABS: Venous Blood Gas Refer to POC result
[2021-01-09 17:31] LABS: VBG Base Excess 5.5 mmol/L; VBG HCO3 31 mmol/L (22-26); VBG pCO2 48 mmHg; VBG pH 7.41 (7.32-7.43); VBG pO2 39 mmHg
[2021-01-09 17:33] LABS: Basophils Percent Auto 0.3 % (0-2); Eosinophils Absolute Auto 0.1 X10*3/uL (0.0-0.4); Eosinophils Percent Auto 0.7 % (0-4); Hematocrit 32.4 % (37-47); Hemoglobin 10.5 g/dl (12.0-16.0); Imm Gran Abs Auto 0.02 X10*3/uL (0.00-0.03); Imm Gran Pct Auto 0.3 % (0.0-0.4); Lymphocytes Absolute Auto 1.4 X10*3/uL (1.2-4.9); Lymphocytes Percent Auto 18.7 % (20-40); Mean Corpuscular HGB Conc 32.4 g/dl (31.0-35.0); Mean Corpuscular Hemoglobin 30.6 pg (27.0-33.0); Mean Corpuscular Volume 94.5 fL (80-98); Mean Platelet Volume 9.1 fL (9.4-12.3); Monocytes Absolute Auto 0.7 X10*3/uL (0.1-1.2); Monocytes Percent Auto 9.9 % (2-11); Neutrophils Absolute Auto 5.2 X10*3/uL (2.0-8.3); Neutrophils Percent Auto 70.1 % (45-73); Platelet Count 203 X10*3/uL (160-400); Red Blood Count 3.43 X10*6/uL (4.20-5.50); Red Cell Distribution Width 14.2 % (11.0-16.0); White Blood Count 7.5 X10*3/uL (4.8-10.8)
[2021-01-09 17:41] LABS: INTERNATIONAL NORM RATIO 1.7 (0.9-1.1); Prothrombin Time 19.7 SEC (9.9-13.0)
[2021-01-09] MEDS: levoFLOXacin/D5W 500 MG/100 ML PIGGYBACK 100 MG IV (17:46)
[2021-01-09 17:47] LABS: Lactic Acid 1.1 mmol/L (0.5-2.0)
[2021-01-09 17:50] LABS: COVID-19 Test Negative (Negative); IDNOW Serial# 9DD0AD1C
[2021-01-09 17:56] LABS: B Type Natriuretic Peptide 32 pg/mL (<100)
[2021-01-09 18:07] LABS: Partial Thromboplastin Time 70.6 SEC (24.1-38.0); Troponin-I High Sensitivity 130.4 ng/L (<3.5-17.0)
[2021-01-09 18:18] LABS: Alanine Aminotransferase 13 U/L (0-31); Alkaline Phosphatase 56 U/L (39-117); Aspartate Amino Transferase 39 U/L (5-31); Bilirubin Direct 0.3 mg/dL (0.0-0.5); Bilirubin Total 0.8 mg/dL (0.0-1.0); Magnesium 1.6 mg/dL (1.6-2.6); Total Protein 7.3 g/dL (6.5-8.0)
[2021-01-09 18:37] LABS: Anion Gap 16 (12-20); Blood Urea Nitrogen 14 mg/dL (9-16); Calcium 8.1 mg/dL (8.4-10.2); Carbon Dioxide 27 mmol/L (22-29); Chloride 100 mmol/L (96-108); Creatinine Clr Calc Pharmacy 58.7; Estimated Glomerular Filt Rate 32; Glucose Random 151 mg/dL (60-115); Lipase 14 U/L (8-78); Potassium 3.6 mmol/L (3.3-5.1); Sodium 139 mmol/L (135-145)
[2021-01-09] MEDS: 0.9 % Sodium Chloride 500 ML IV (18:57)
[2021-01-09 19:44] VITALS: BP 138/57; PULSE 68; RESP 15; O2SAT 98
--- NOTE | 2021-01-09 19:53 | MHC.CM.ED ---
CM called Yonis Mayfield (son) [phone] to gather some information regarding pt coming to ED. Per Yonis, his mother does not ambulate, but uses her hover round motorized chair at home. States she has a cane and walker, but doesn't use them. States his mother was acting odd , with some odd conversations and slightly confused last 2 days. States this has happened to his mother in the past when she has a UTI. States she slipped and fell when getting into her bed, and he tried to get her up for over and hour before he call 911. States his mother has MANAGEMENT LECTURER and meals on wheels and lives alone. States he sees her daily and sometimes stays overnight. Dr. Mariano aware of above conversation. Work -up pending. CM will follow for d/c needs.
[2021-01-09 19:55] LABS: Glucose Urine UA NEG (NEG); Leukocyte Esterase Urine NEG (NEG); Nitrite Urine NEG (NEG); Specific Gravity - Urine >= 1.030 (1.005-1.025); Urine Blood NEG (NEG); Urine Ketones 5 MG/DL (NEG); Urine Protein 1+ MG/DL (NEG-TRACE)
[2021-01-09 19:58] LABS: Appearance Urine CLEAR; Color Urine YELLOW
[2021-01-09 20:00] VITALS: BP 104/34; PULSE 73; RESP 15; O2SAT 98
[2021-01-09 20:25] LABS: Hyaline Casts Urine 0-2 /LPF; RBC Urine 0-2 /HPF (0); Squamous Epithelial Cell Urine TRACE /LPF
[2021-01-09 21:20] LABS: Troponin-I High Sensitivity 127.4 ng/L (<3.5-17.0)
--- NOTE | 2021-01-09 22:46 | MHC.CM.PN ---
Addendum entered by Debra Hernández 01/09/21 22:56: HCP is on file. HCP/son Yonis Mayfield ([phone]) Original Note: CM met with admitted patient pending bed assignment. IMM reviewed and signed per protocol 01/09/21@2240. Pt agreeable to admission, but asked why she was being admitted. Explained to pt that she is dehyrated, has ANABELL(her kidney numbers were elevated) and increased troponin levels (they are checking your heart). Pt understands. Will be seen by cardiology. Pt orientated to person, place and situation. Pt lives alone and has a PHARMACY ACCOUNT DIRECTOR, unsure of hours. Pt has meals on wheels. Pt PHARMACY ACCOUNT DIRECTOR is through [employer].Pt is non-ambulatory and uses a [employer] chair. Pt states her son helps her. Pt lives on 3rd floor. [facility] SW is looking for a 1st floor apartment for her. D/C plan is home with services pending hospital course. Transportation via S, as pt is non-ambulatory. CM to follow for d/c needs.
--- NOTE | 2021-01-09 22:48 | PM.IMHP ---
History of Present Illness Date of Service: 01/09/21 Chief Complaint: Generalized weakness 76-year-old female with a past medical history of hypertension, hyperlipidemia, diabetes, CAD, diastolic CHF, AFib on Pradaxa, osteoarthritis, history of breast cancer, anxiety; lives at home with her son presented to the hospital today with a chief complaint of generalized weakness. Most of the history obtained from the patient, patient's son, ER staff. Reportedly patient has been having generalized weakness over the past 3-4 days; as per the son patient is not moving around the house much and is sitting in the chair the whole day yesterday; on patient's son reports that she is also mildly confused and the presentation is similar to the prior episodes when she had UTI in the past. Patient denies any chest pain palpitations lightheadedness or dizziness. Patient is alert and oriented at the time of my interview. Patient is mildly tremulous-but reports it is all chronic. Denies any abdominal pain. Denies any GI or symptoms. Review of all other systems is negative except mentioned above ER course: Per ER team patient denied any chest pain; exam was nonfocal; no signs of infection, urinalysis negative, chest x-ray negative for pneumonia; but lab showed mild ANABELL; also noted to have rhabdomyolysis with CPK need 0s and indeterminate troponins; the follow-up troponins have plateaued; EKG showed no acute ischemic changes; patient is already anticoagulated. Admitted to the hospital for further management. [facility] Medical History Derangement of left knee Hypercholesterolemia Lumbar degenerative disc disease Family History Father Diabetes Heart disease Mother Heart disease Son Opiate addiction Surgical History History of lumpectomy of right breast History of tubal ligation Social History Household Members: None Household Members Other:: Brought to ER by son with whom she lives Housing: Apartment Do you presently have visiting nurse or other home services: Yes Alcohol intake: never Patient Tobacco Use Status: Never used Tobacco service: No Current occupational status: retired Meds Allergies Allergy/AdvReac Type Severity Reaction Status Date / Time amoxicillin [Augmentin] Allergy Unknown Diarrhea Verified 11/20/20 10:39 clavulanic acid [Augmentin] Allergy Unknown Diarrhea Verified 11/20/20 10:39 Iodinated Contrast Media Allergy Unknown THROAT Verified 11/20/20 10:39 [IV Dye, Iodine Containing CLOSES Contrast ] UP/SWELLIN iodine [IODINE] Allergy Unknown ANAPHYLAXIS Verified 11/20/20 10:39 lisinopril [LISINOPRIL] Allergy Unknown UNKNOWN, Verified 11/20/20 10:39 cough, cough prednisone [PREDNISONE] Allergy Unknown INCREASE Verified 11/20/20 10:39 BLOOD PRESSURE quetiapine [From SEROQUEL] Allergy Unknown SWELLING Verified 11/20/20 10:39 X-ray dye Allergy Unknown Facial Verified 11/20/20 10:39 swelling/ trouble breathing Active Medications: Current Medications Generic Name Dose Route Start Last Admin Trade Name Freq PRN Reason Stop Dose Admin Acetaminophen 650 mg 01/09/21 22:28 Acetaminophen 325 Mg Tablet PO Q6H PRN Pain, Mild (Pain Scale 1-3) Albuterol Sulfate 2 puff 01/09/21 22:31 Albuterol Sulfate 90 Mcg 8 Gm Inhaler INHALE Q6H PRN Shortness Of Breath Or Wheezing Clonazepam 1 mg 01/10/21 09:00 Clonazepam 1 Mg Tablet PO BID [facility] Dabigatran 150 mg 01/10/21 09:00 Dabigatran Etexilate Mesylate 150 Mg Capsule PO BID [facility] Escitalopram Oxalate 10 mg 01/10/21 09:00 Escitalopram Oxalate 10 Mg Tablet PO DAILY [facility] Insulin Glargine 10 unit 01/10/21 21:00 Insulin Glargine,Hum.Rec.Anlog 100 Unit/Ml 10 Ml Vial SUBCUT BEDTIME [facility] Insulin Human Lispro 0 unit 01/10/21 07:30 Insulin Lispro 100 Unit/Ml 3 Ml Vial SUBCUT QIDACHS [facility] Protocol Pharmacy Consult 1 each 01/09/21 16:36 Consult Rx Perform Med Rec MISCELLANE ONCE PRN Consult order Pregabalin 100 mg 01/10/21 09:00 Pregabalin 100 Mg Capsule PO TID [facility] Sodium Chloride 3 ml 01/10/21 00:00 0.9 % Sodium Chloride Flush 3 Ml Syringe IVFLUSH QSHIFT [facility] Trazodone HCl 100 mg 01/10/21 21:00 Trazodone Hcl 100 Mg Tablet PO BEDTIME [facility] Home Medications Medication Instructions Recorded Confirmed Last Taken Type albuterol sulfate 90 mcg/actuation 2 puff INHALATION Q6H PRN 06/18/20 01/09/21 Unknown History aerosol inhaler insulin glargine 100 unit/mL (3 30 unit SUBCUT BEDTIME 01/09/21 01/09/21 01/08/21 History mL) subcutaneous pen (Lantus Solostar U-100 Insulin) Physical Exam Vital Signs and Narrative: Vital Signs: Last Vital Signs Temp 98.8 F 01/09/21 16:24 Pulse 73 01/09/21 20:00 Resp 15 01/09/21 20:00 BP 104/34 L 01/09/21 20:00 Pulse Ox 98 01/09/21 20:00 Body Mass Index 67.0 Gen: Appears be in no acute distress HEENT: NCAT, Moist mucosa. Pulmonary: Vesicular breath sounds, fair air entry CVS: Normal S1-S2 Abdomen: BS+, Soft, Nontender Extremities: Warm well perfused Neuro: Alert and awake. Oriented times 2-3; grossly nonfocal examination Results Labs CBC and Chem 7: 01/13/21 05:27 01/13/21 05:27 Labs: Laboratory Results - last 24 hr 01/09/21 01/09/21 01/09/21 17:13 17:13 17:13 MCV 94.5 MCH 30.6 MCHC 32.4 RDW 14.2 Plt Count 203 MPV 9.1 L Immature Gran % (Auto) 0.3 Neut % (Auto) 70.1 Lymph % (Auto) 18.7 L [place] % (Auto) 9.9 Eos % (Auto) 0.7 Baso % (Auto) 0.3 Lymph # (Auto) 1.4 [place] # (Auto) 0.7 Eos # (Auto) 0.1 Baso # (Auto) 0.0 Abs Immat Gran (auto) 0.02 Absolute Neuts (auto) 5.2 Absolute Nucleated RBC 0.000 Nucleated RBC % (auto) 0.0 PT INR APTT VBG pH VBG pCO2 VBG pO2 VBG HCO3 VBG O2 Saturation VBG Base Excess Anion Gap 16 Estim Creat Clear Calc 58.7 Estimated GFR 32 Random Glucose 151 H Lactic Acid 1.1 Calcium 8.1 L D Magnesium Total Bilirubin Direct Bilirubin AST ALT Alkaline Phosphatase Total Creatine Kinase Troponin I High Sens B-Natriuretic Peptide Total Protein Albumin Lipase 14 Urine Color Urine Appearance Urine pH Ur Specific [place] Urine Protein Urine Glucose (UA) Urine Ketones Urine Blood Urine Nitrite Ur Leukocyte Esterase Urine RBC Urine WBC Ur Squamous Epith Cells Urine Bacteria Hyaline Casts COVID-19 (ELLEN) COVID-19 Clin Com 01/09/21 01/09/21 01/09/21 17:13 17:13 17:13 MCV MCH MCHC RDW Plt Count MPV Immature Gran % (Auto) Neut % (Auto) Lymph % (Auto) [place] % (Auto) Eos % (Auto) Baso % (Auto) Lymph # (Auto) [place] # (Auto) Eos # (Auto) Baso # (Auto) Abs Immat Gran (auto) Absolute Neuts (auto) Absolute Nucleated RBC Nucleated RBC % (auto) PT 19.7 H INR 1.7 H APTT 70.6 H* VBG pH VBG pCO2 VBG pO2 VBG HCO3 VBG O2 Saturation VBG Base Excess Anion Gap Estim Creat Clear Calc Estimated GFR Random Glucose Lactic Acid Calcium Magnesium Total Bilirubin Direct Bilirubin AST ALT Alkaline Phosphatase Total Creatine Kinase Troponin I High Sens B-Natriuretic Peptide 32 Total Protein Albumin Lipase Urine Color Urine Appearance Urine pH Ur Specific [place] Urine Protein Urine Glucose (UA) Urine Ketones Urine Blood Urine Nitrite Ur Leukocyte Esterase Urine RBC Urine WBC Ur Squamous Epith Cells Urine Bacteria Hyaline Casts COVID-19 (ELLEN) Negative COVID-19 Clin Com See Note 01/09/21 01/09/21 01/09/21 17:13 17:13 17:19 MCV MCH MCHC RDW Plt Count MPV Immature Gran % (Auto) Neut % (Auto) Lymph % (Auto) [place] % (Auto) Eos % (Auto) Baso % (Auto) Lymph # (Auto) [place] # (Auto) Eos # (Auto) Baso # (Auto) Abs Immat Gran (auto) Absolute Neuts (auto) Absolute Nucleated RBC Nucleated RBC % (auto) PT INR APTT VBG pH 7.41 VBG pCO2 48 VBG pO2 39 VBG HCO3 31 H VBG O2 Saturation 61.0 VBG Base Excess 5.5 Anion Gap Estim Creat Clear Calc Estimated GFR Random Glucose Lactic Acid Calcium Magnesium 1.6 Total Bilirubin 0.8 Direct Bilirubin 0.3 AST 39 H D ALT 13 Alkaline Phosphatase 56 Total Creatine Kinase 879 H D Troponin I High Sens 130.4 H* B-Natriuretic Peptide Total Protein 7.3 Albumin 4.0 Lipase Urine Color Urine Appearance Urine pH Ur Specific [place] Urine Protein Urine Glucose (UA) Urine Ketones Urine Blood Urine Nitrite Ur Leukocyte Esterase Urine RBC Urine WBC Ur Squamous Epith Cells Urine Bacteria Hyaline Casts COVID-19 (ELLEN) COVID-19 Clin Com 01/09/21 01/09/21 19:47 20:34 MCV MCH MCHC RDW Plt Count MPV Immature Gran % (Auto) Neut % (Auto) Lymph % (Auto) [place] % (Auto) Eos % (Auto) Baso % (Auto) Lymph # (Auto) [place] # (Auto) Eos # (Auto) Baso # (Auto) Abs Immat Gran (auto) Absolute Neuts (auto) Absolute Nucleated RBC Nucleated RBC % (auto) PT INR APTT VBG pH VBG pCO2 VBG pO2 VBG HCO3 VBG O2 Saturation VBG Base Excess Anion Gap Estim Creat Clear Calc Estimated GFR Random Glucose Lactic Acid Calcium Magnesium Total Bilirubin Direct Bilirubin AST ALT Alkaline Phosphatase Total Creatine Kinase Troponin I High Sens 127.4 H* B-Natriuretic Peptide Total Protein Albumin Lipase Urine Color YELLOW Urine Appearance CLEAR Urine pH 6.0 Ur Specific [place] >= 1.030 H Urine Protein 1+ H Urine Glucose (UA) NEG Urine Ketones 5 Urine Blood NEG Urine Nitrite NEG Ur Leukocyte Esterase NEG Urine RBC 0-2 Urine WBC 1-4 Ur Squamous Epith Cells TRACE Urine Bacteria NONE Hyaline Casts 0-2 COVID-19 (ELLEN) COVID-19 Clin Com Imaging Radiologist's Impressions: Impressions Head CT 01/09/21 16:25 IMPRESSION: No evidence of hemorrhage. No acute findings. Chest X-Ray 01/09/21 16:37 IMPRESSION: Mild increased pulmonary vascular markings without congestion, no change from previous study. Assessment and Plan (1) ANABELL (acute kidney injury): Status: Acute 76F with a past medical history of hypertension, hyperlipidemia, diabetes, CAD, diastolic CHF, AFib on Pradaxa, osteoarthritis, history of breast cancer, anxiety; lives at home with her son presented to the hospital today with a chief complaint of generalized weakness. Noted to have ANABELL/mild rhabdomyolysis/indeterminate troponins. Admitted for further management. Mild ANABELL: Continue gentle IV fluids. Monitor for signs of fluid overload given patient has history of CHF. Hold home Lasix. Mild rhabdomyolysis: Patient on gentle fluids. Monitor levels. Elevated troponins: Follow-up troponins plateaued. Patient denies any chest pain. EKG nonischemic. History of AFib: Rate controlled. Continue home Pradaxa. Diabetes: Hold home metformin. Insulin sliding scale. And Lantus 10 units at bedtime Hypertension: Patient's blood pressure on the soft side. Will hold home amlodipine. History of diastolic CHF: No obvious signs of fluid overload. Will hold home Lasix for now given ANABELL. Code status: Full code Disposition: Patient's son mentions that patient is too weak and mentions is probably not able to take care of her 10/01; patient would probably benefit home health services versus rehab placement PT/OT eventually Quality Stroke Does the patient have a stroke diagnosis?: No VTE Prior VTE?: No VTE Risk Level:: Medical - moderate - high VTE Device Contraindication: Treatment Not Indicated VTE Drug Contraindication: N/A - Med Ordered
[2021-01-10] VITALS (7 sets, daily range): BP systolic 118–151; BP diastolic 52–61; PULSE 66–71; RESP 16–19; TEMP 36.1–37.2; O2SAT 92–97; BMI 30.4
[2021-01-10] MEDS: 0.9 % Sodium Chloride Flush 3 ML SYRINGE IVFLUSH ×2 (00:39→09:50)
[2021-01-10 06:48] LABS: MANUAL DIFF FLAG NO
[2021-01-10 06:58] LABS: Basophils Percent Auto 0.4 % (0-2); Eosinophils Absolute Auto 0.1 X10*3/uL (0.0-0.4); Eosinophils Percent Auto 1.9 % (0-4); Hematocrit 29.5 % (37-47); Hemoglobin 9.5 g/dl (12.0-16.0); Imm Gran Abs Auto 0.01 X10*3/uL (0.00-0.03); Imm Gran Pct Auto 0.2 % (0.0-0.4); Lymphocytes Percent Auto 18.2 % (20-40); Mean Corpuscular HGB Conc 32.2 g/dl (31.0-35.0); Mean Corpuscular Hemoglobin 30.7 pg (27.0-33.0); Mean Corpuscular Volume 95.5 fL (80-98); Mean Platelet Volume 9.6 fL (9.4-12.3); Monocytes Absolute Auto 0.5 X10*3/uL (0.1-1.2); Monocytes Percent Auto 10.3 % (2-11); Neutrophils Absolute Auto 3.6 X10*3/uL (2.0-8.3); Platelet Count 176 X10*3/uL (160-400); Red Blood Count 3.09 X10*6/uL (4.20-5.50); Red Cell Distribution Width 14.2 % (11.0-16.0); White Blood Count 5.2 X10*3/uL (4.8-10.8)
[2021-01-10 07:32] LABS: Anion Gap 11 (12-20); Blood Urea Nitrogen 12 mg/dL (9-16); Calcium 7.6 mg/dL (8.4-10.2); Carbon Dioxide 30 mmol/L (22-29); Chloride 102 mmol/L (96-108); Creatinine Clr Calc Pharmacy 71.7; Estimated Glomerular Filt Rate > 60; Glucose Random 141 mg/dL (60-115); Potassium 3.5 mmol/L (3.3-5.1); Sodium 139 mmol/L (135-145)
[2021-01-10 07:39] LABS: Glucose, Whole Blood 147 mg/dL (60-115)
[2021-01-10] MEDS: Dabigatran Etexilate Mesylate 150 MG CAPSULE PO ×2 (09:50→20:14)
[2021-01-10] MEDS: Pregabalin 100 MG CAPSULE PO ×3 (09:50→20:14)
[2021-01-10] MEDS: Escitalopram Oxalate 10 MG TABLET PO (09:50)
[2021-01-10] MEDS: clonazePAM 1 MG TABLET PO ×2 (09:50→20:14)
[2021-01-10] MEDS: Lactated Ringers 1,000 ML 80 ML IVCONT ×2 (09:52→23:03)
--- NOTE | 2021-01-10 10:26 | HO.PM.IMPN ---
Subjective Subjective Date of Service: 01/10/21 Interval History: no complaints Cardiovascular Cardiovascular: Reports no additional cardiovascular complaints Gastrointestinal Gastrointestinal: Reports no additional gastrointestinal complaints Physical Exam Vital Signs: Vital Signs: Last Vital Signs Temp 97.6 F 01/10/21 07:17 Pulse 71 01/10/21 07:17 Resp 18 01/10/21 07:17 BP 134/56 L 01/10/21 07:17 Pulse Ox 97 01/10/21 07:17 Body Mass Index 30.4 General: AO X 2, no acute distress Resp: CTA bilateral CVS: S1,S2,RRR GI: soft, non tender, non distended Neuro: motor grossly weak Psych: impaired insight Objective Data Current Medications Generic Name Dose Route Start Last Admin Trade Name Freq PRN Reason Stop Dose Admin Acetaminophen 650 mg 01/09/21 22:28 Acetaminophen 325 Mg Tablet PO Q6H PRN Pain, Mild (Pain Scale 1-3) Albuterol Sulfate 2 puff 01/09/21 22:31 Albuterol Sulfate 90 Mcg 8 Gm Inhaler INHALE Q6H PRN Shortness Of Breath Or Wheezing Clonazepam 1 mg 01/10/21 09:00 01/10/21 09:50 Clonazepam 1 Mg Tablet PO 1 mg BID DANELLE Administration Dabigatran 150 mg 01/10/21 09:00 01/10/21 09:50 Dabigatran Etexilate Mesylate 150 Mg Capsule PO 150 mg BID DANELLE Administration Escitalopram Oxalate 10 mg 01/10/21 09:00 01/10/21 09:50 Escitalopram Oxalate 10 Mg Tablet PO 10 mg DAILY DANELLE Administration Lactated Ringer's 1,000 mls @ 80 mls/hr 01/10/21 10:00 01/10/21 09:52 Lr IVCONT 80 mls/hr .[id number] DANELLE Administration Insulin Glargine 10 unit 01/10/21 21:00 Insulin Glargine,Hum.Rec.Anlog 100 Unit/Ml 10 Ml Vial SUBCUT BEDTIME [facility] Insulin Human Lispro 0 unit 01/10/21 07:30 01/10/21 07:40 Insulin Lispro 100 Unit/Ml 3 Ml Vial SUBCUT Not Given QIDACHS [facility] Protocol Pharmacy Consult 1 each 01/09/21 16:36 Consult Rx Perform Med Rec MISCELLANE ONCE PRN Consult order Pregabalin 100 mg 01/10/21 09:00 01/10/21 09:50 Pregabalin 100 Mg Capsule PO 100 mg TID DANELLE Administration Sodium Chloride 3 ml 01/10/21 00:00 01/10/21 09:50 0.9 % Sodium Chloride Flush 3 Ml Syringe IVFLUSH 3 ml QSHIFT DANELLE Administration Trazodone HCl 100 mg 01/10/21 21:00 Trazodone Hcl 100 Mg Tablet PO BEDTIME [facility] Labs CBC & Chem 7: 01/10/21 06:18 01/10/21 06:18 Labs: Laboratory Results - last 24 hr 01/09/21 01/09/21 01/09/21 17:13 17:13 17:13 WBC 7.5 RBC 3.43 L Hgb 10.5 L Hct 32.4 L MCV 94.5 MCH 30.6 MCHC 32.4 RDW 14.2 Plt Count 203 MPV 9.1 L Immature Gran % (Auto) 0.3 Neut % (Auto) 70.1 Lymph % (Auto) 18.7 L [place] % (Auto) 9.9 Eos % (Auto) 0.7 Baso % (Auto) 0.3 Lymph # (Auto) 1.4 [place] # (Auto) 0.7 Eos # (Auto) 0.1 Baso # (Auto) 0.0 Abs Immat Gran (auto) 0.02 Absolute Neuts (auto) 5.2 Absolute Nucleated RBC 0.000 Nucleated RBC % (auto) 0.0 PT INR APTT VBG pH VBG pCO2 VBG pO2 VBG HCO3 VBG O2 Saturation VBG Base Excess Sodium 139 Potassium 3.6 Chloride 100 Carbon Dioxide 27 Anion Gap 16 BUN 14 Creatinine 1.57 H Estim Creat Clear Calc 58.7 Estimated GFR 32 POC Glucose Random Glucose 151 H Lactic Acid 1.1 Calcium 8.1 L D Magnesium Total Bilirubin Direct Bilirubin AST ALT Alkaline Phosphatase Total Creatine Kinase Troponin I High Sens B-Natriuretic Peptide Total Protein Albumin Lipase 14 Urine Color Urine Appearance Urine pH Ur Specific [place] Urine Protein Urine Glucose (UA) Urine Ketones Urine Blood Urine Nitrite Ur Leukocyte Esterase Urine RBC Urine WBC Ur Squamous Epith Cells Urine Bacteria Hyaline Casts COVID-19 (ELLEN) COVID-19 Clin Com 01/09/21 01/09/21 01/09/21 17:13 17:13 17:13 WBC RBC Hgb Hct MCV MCH MCHC RDW Plt Count MPV Immature Gran % (Auto) Neut % (Auto) Lymph % (Auto) [place] % (Auto) Eos % (Auto) Baso % (Auto) Lymph # (Auto) [place] # (Auto) Eos # (Auto) Baso # (Auto) Abs Immat Gran (auto) Absolute Neuts (auto) Absolute Nucleated RBC Nucleated RBC % (auto) PT 19.7 H INR 1.7 H APTT 70.6 H* VBG pH VBG pCO2 VBG pO2 VBG HCO3 VBG O2 Saturation VBG Base Excess Sodium Potassium Chloride Carbon Dioxide Anion Gap BUN Creatinine Estim Creat Clear Calc Estimated GFR POC Glucose Random Glucose Lactic Acid Calcium Magnesium Total Bilirubin Direct Bilirubin AST ALT Alkaline Phosphatase Total Creatine Kinase Troponin I High Sens B-Natriuretic Peptide 32 Total Protein Albumin Lipase Urine Color Urine Appearance Urine pH Ur Specific [place] Urine Protein Urine Glucose (UA) Urine Ketones Urine Blood Urine Nitrite Ur Leukocyte Esterase Urine RBC Urine WBC Ur Squamous Epith Cells Urine Bacteria Hyaline Casts COVID-19 (ELLEN) Negative COVID-19 [email or web address] Com See Note 01/09/21 01/09/21 01/09/21 17:13 17:13 17:19 WBC RBC Hgb Hct MCV MCH MCHC RDW Plt Count MPV Immature Gran % (Auto) Neut % (Auto) Lymph % (Auto) [place] % (Auto) Eos % (Auto) Baso % (Auto) Lymph # (Auto) [place] # (Auto) Eos # (Auto) Baso # (Auto) Abs Immat Gran (auto) Absolute Neuts (auto) Absolute Nucleated RBC Nucleated RBC % (auto) PT INR APTT VBG pH 7.41 VBG pCO2 48 VBG pO2 39 VBG HCO3 31 H VBG O2 Saturation 61.0 VBG Base Excess 5.5 Sodium Potassium Chloride Carbon Dioxide Anion Gap BUN Creatinine Estim Creat Clear Calc Estimated GFR POC Glucose Random Glucose Lactic Acid Calcium Magnesium 1.6 Total Bilirubin 0.8 Direct Bilirubin 0.3 AST 39 H D ALT 13 Alkaline Phosphatase 56 Total Creatine Kinase 879 H D Troponin I High Sens 130.4 H* B-Natriuretic Peptide Total Protein 7.3 Albumin 4.0 Lipase Urine Color Urine Appearance Urine pH Ur Specific [place] Urine Protein Urine Glucose (UA) Urine Ketones Urine Blood Urine Nitrite Ur Leukocyte Esterase Urine RBC Urine WBC Ur Squamous Epith Cells Urine Bacteria Hyaline Casts COVID-19 (ELLEN) COVID-19 [email or web address] Com 07/01/09/21 01/10/21 19:47 20:34 06:18 WBC 5.2 RBC 3.09 L Hgb 9.5 L Hct 29.5 L MCV 95.5 MCH 30.7 MCHC 32.2 RDW 14.2 Plt Count 176 MPV 9.6 Immature Gran % (Auto) 0.2 Neut % (Auto) 69.0 Lymph % (Auto) 18.2 L [place] % (Auto) 10.3 Eos % (Auto) 1.9 Baso % (Auto) 0.4 Lymph # (Auto) 1.0 L [place] # (Auto) 0.5 Eos # (Auto) 0.1 Baso # (Auto) 0.0 Abs Immat Gran (auto) 0.01 Absolute Neuts (auto) 3.6 Absolute Nucleated RBC 0.000 Nucleated RBC % (auto) 0.0 PT INR APTT VBG pH VBG pCO2 VBG pO2 VBG HCO3 VBG O2 Saturation VBG Base Excess Sodium Potassium Chloride Carbon Dioxide Anion Gap BUN Creatinine Estim Creat Clear Calc Estimated GFR POC Glucose Random Glucose Lactic Acid Calcium Magnesium Total Bilirubin Direct Bilirubin AST ALT Alkaline Phosphatase Total Creatine Kinase Troponin I High Sens 127.4 H* B-Natriuretic Peptide Total Protein Albumin Lipase Urine Color YELLOW Urine Appearance CLEAR Urine pH 6.0 Ur Specific [place] >= 1.030 H Urine Protein 1+ H Urine Glucose (UA) NEG Urine Ketones 5 Urine Blood NEG Urine Nitrite NEG Ur Leukocyte Esterase NEG Urine RBC 0-2 Urine WBC 1-4 Ur Squamous Epith Cells TRACE Urine Bacteria NONE Hyaline Casts 0-2 COVID-19 (ELLEN) COVID-19 Clin Com 01/10/21 01/10/21 01/10/21 06:18 06:18 07:15 WBC RBC Hgb Hct MCV MCH MCHC RDW Plt Count MPV Immature Gran % (Auto) Neut % (Auto) Lymph % (Auto) [place] % (Auto) Eos % (Auto) Baso % (Auto) Lymph # (Auto) [place] # (Auto) Eos # (Auto) Baso # (Auto) Abs Immat Gran (auto) Absolute Neuts (auto) Absolute Nucleated RBC Nucleated RBC % (auto) PT INR APTT VBG pH VBG pCO2 VBG pO2 VBG HCO3 VBG O2 Saturation VBG Base Excess Sodium 139 Potassium 3.5 Chloride 102 Carbon Dioxide 30 H Anion Gap 11 L BUN 12 Creatinine 0.81 Estim Creat Clear Calc 71.7 Estimated GFR > 60 POC Glucose 147 H Random Glucose 141 H Lactic Acid Calcium 7.6 L D Magnesium Total Bilirubin Direct Bilirubin AST ALT Alkaline Phosphatase Total Creatine Kinase 450 H D Troponin I High Sens B-Natriuretic Peptide Total Protein Albumin Lipase Urine Color Urine Appearance Urine pH Ur Specific [place] Urine Protein Urine Glucose (UA) Urine Ketones Urine Blood Urine Nitrite Ur Leukocyte Esterase Urine RBC Urine WBC Ur Squamous Epith Cells Urine Bacteria Hyaline Casts COVID-19 (ELLEN) COVID-19 Clin Com Quality Stroke Does the patient have a stroke diagnosis?: No VTE Prior VTE?: No VTE Risk Level:: Medical - moderate - high VTE Device Contraindication: Treatment Not Indicated VTE Drug Contraindication: N/A - Med Ordered Assessment and Plan (1) FREEMAN (acute kidney injury): Status: Acute Assessment and Plan: 75F presented with weakness, found to have FREEMAN, mild rhabdo, indeterminant troponins freeman resolved with ivf mild rhabdo resolved with ivf indeterminent troponins cardio eval ? due to mild rhabdo DM insulin paroxysmal afib pradaxa debility/falls PT eval
--- NOTE | 2021-01-10 11:42 | PM.CNCAR ---
Assessment and Plan (1) Elevated troponin: Status: Acute Patient with elevated troponin with rise and fall, troponin performed without any clear clinical indication. However it appears clinically she has rhabdomyolysis as well as acute kidney injury which can both lead to noted elevated troponin levels. There is no clear evidence of myocardial ischemia by EKG or any clear symptoms however this is difficult to elicit from the patient. However unlikely that this represents acute coronary syndrome. No further cardiac workup is indicated. Continue medical management. Probable evaluation by social media senior associate given that she has had recurrent falls in the past and admissions with rhabdomyolysis and acute kidney injury. Continue other medications. Will sign of the case. History of Present Illness History of Present Illness Date of Service: 01/10/21 Requesting physician: Andre Burt Consult reason: troponin elevation Chief complaint: ANABELL Narrative: I was requested to see Amarilys in cardiology evaluation for elevated troponin. Patient is a poor historian and cannot provide much history and therefore history was obtained from the chart. Patient denies any chest pain, is communicated of. However does not provide any past medical history. Patient was admitted and brought into the hospital as per the hospitalist history and physical due to generalized weakness brought in by the son. Reported that patient was confused. There is no clear fall history. However in the past she has been found on the ground and has been admitted with rhabdomyolysis. When she came in she was noted to have acute kidney injury and rhabdomyolysis. This has resolved with IV fluids. Troponins were performed for unclear reasons as patient did not present with any cardiac symptoms and there were elevated. EKG was not suggestive of any acute ischemia. Patient denies any chest pain. Cardiology consult for elevated troponin. Review of Systems Review of Systems: Yes Unobtainable due to mental status Neurologic: Reports confusion Psychiatric: Psychiatric: Reports confusion [facility] Past Medical History Medical History Derangement of left knee Hypercholesterolemia Lumbar degenerative disc disease Family History Family History Father Diabetes Heart disease Mother Heart disease Son Opiate addiction Surgical History Surgical History History of lumpectomy of right breast History of tubal ligation Social History Social History Household Members: None Household Members Other:: Brought to ER by son with whom she lives Housing: Apartment Do you presently have visiting nurse or other home services: Yes Alcohol intake: never Patient Tobacco Use Status: Never used Tobacco Use of substances other than those prescribed or required for medical reasons: No Have you been hit, kicked, punched, or otherwise hurt by someone within the past year? If so, by whom?: No Do you feel safe in your current relationship?: No Current Relationship Is there a partner from a previous relationship who is making you feel unsafe now?: No Are you made to feel afraid or neglected: No Advance Directives: No Advance Directives Information Provided: Yes Do you have thoughts of harming others: None Do you have a plan to hurt others: No Plan Recently lost weight without trying: No Nutrition Risks: No Nutritional Risk service: No Current occupational status: retired [employer] Allergies Allergy/AdvReac Type Severity Reaction Status Date / Time amoxicillin [Augmentin] Allergy Unknown Diarrhea Verified 11/20/20 10:39 clavulanic acid [Augmentin] Allergy Unknown Diarrhea Verified 11/20/20 10:39 Iodinated Contrast Media Allergy Unknown THROAT Verified 11/20/20 10:39 [IV Dye, Iodine Containing CLOSES Contrast ] UP/SWELLIN iodine [IODINE] Allergy Unknown ANAPHYLAXIS Verified 11/20/20 10:39 lisinopril [LISINOPRIL] Allergy Unknown UNKNOWN, Verified 11/20/20 10:39 cough, cough prednisone [PREDNISONE] Allergy Unknown INCREASE Verified 11/20/20 10:39 BLOOD PRESSURE quetiapine [From SEROQUEL] Allergy Unknown SWELLING Verified 11/20/20 10:39 X-ray dye Allergy Unknown Facial Verified 11/20/20 10:39 swelling/ trouble breathing Active Medications: Current Medications Generic Name Dose Route Start Last Admin Trade Name Freq PRN Reason Stop Dose Admin Acetaminophen 650 mg 01/09/21 22:28 Acetaminophen 325 Mg Tablet PO Q6H PRN Pain, Mild (Pain Scale 1-3) Albuterol Sulfate 2 puff 01/09/21 22:31 Albuterol Sulfate 90 Mcg 8 Gm Inhaler INHALE Q6H PRN Shortness Of Breath Or Wheezing Clonazepam 1 mg 01/10/21 09:00 01/10/21 09:50 Clonazepam 1 Mg Tablet PO 1 mg BID DANELLE Administration Dabigatran 150 mg 01/10/21 09:00 01/10/21 09:50 Dabigatran Etexilate Mesylate 150 Mg Capsule PO 150 mg BID DANELLE Administration Escitalopram Oxalate 10 mg 01/10/21 09:00 01/10/21 09:50 Escitalopram Oxalate 10 Mg Tablet PO 10 mg DAILY DANELLE Administration Lactated Ringer's 1,000 mls @ 80 mls/hr 01/10/21 10:00 01/10/21 09:52 Lr IVCONT 80 mls/hr .[id number] DANELLE Administration Insulin Glargine 10 unit 01/10/21 21:00 Insulin Glargine,Hum.Rec.Anlog 100 Unit/Ml 10 Ml Vial SUBCUT BEDTIME [facility] Insulin Human Lispro 0 unit 01/10/21 07:30 01/10/21 07:40 Insulin Lispro 100 Unit/Ml 3 Ml Vial SUBCUT Not Given QIDACHS [facility] Protocol Pharmacy Consult 1 each 01/09/21 16:36 Consult Rx Perform Med Rec MISCELLANE ONCE PRN Consult order Pregabalin 100 mg 01/10/21 09:00 01/10/21 09:50 Pregabalin 100 Mg Capsule PO 100 mg TID [facility] Administration Sodium Chloride 3 ml 01/10/21 00:00 01/10/21 09:50 0.9 % Sodium Chloride Flush 3 Ml Syringe IVFLUSH 3 ml QSHIFT [facility] Administration Trazodone HCl 100 mg 01/10/21 21:00 Trazodone Hcl 100 Mg Tablet PO BEDTIME [facility] Home Medications Medication Instructions Recorded Confirmed Last Taken Type albuterol sulfate 90 mcg/actuation 2 puff INHALATION Q6H PRN 06/18/20 01/09/21 Unknown History aerosol inhaler Lantus Solostar U-100 Insulin 30 unit SUBCUT BEDTIME 01/09/21 01/09/21 01/08/21 History Physical Exam Vital Signs: Vital Signs: Last Vital Signs Temp 97.3 F 01/10/21 11:30 Pulse 67 01/10/21 11:30 Resp 18 01/10/21 11:30 BP 135/52 L 01/10/21 11:30 Pulse Ox 94 01/10/21 11:30 Body Mass Index 30.4 Const: General: cooperative, comfortable, alert, awake and confusion Nutritional Appearance: obese Orientation/consciousness: confusion HENMT: Head: Yes normocephalic and Yes atraumatic Neck: Neck: Yes trachea midline, Yes supple and Yes no JVD Resp: Effort & Inspection: decreased respiratory effort Auscultation: wheezes right lower and diminished lung sounds Cardio: Jugular venous distension: no JVD Palpation: normal PMI Rate: regular rate Rhythm: regular rhythm Heart sounds: S1 normal heart sound present and S2 normal heart sound present Skin: General skin exam: no rashes or lesions noted Neuro: General: no focal motor deficits and confusion Extrem: General: Yes no clubbing, cyanosis or edema Results Labs and Meds Result diagrams: 01/10/21 06:18 01/10/21 06:18 Lab results: Laboratory Results - last 24 hr 01/09/21 01/09/21 01/09/21 17:13 17:13 17:13 WBC 7.5 RBC 3.43 L Hgb 10.5 L Hct 32.4 L MCV 94.5 MCH 30.6 MCHC 32.4 RDW 14.2 Plt Count 203 MPV 9.1 L Immature Gran % (Auto) 0.3 Neut % (Auto) 70.1 Lymph % (Auto) 18.7 L [place] % (Auto) 9.9 Eos % (Auto) 0.7 Baso % (Auto) 0.3 Lymph # (Auto) 1.4 [place] # (Auto) 0.7 Eos # (Auto) 0.1 Baso # (Auto) 0.0 Abs Immat Gran (auto) 0.02 Absolute Neuts (auto) 5.2 Absolute Nucleated RBC 0.000 Nucleated RBC % (auto) 0.0 PT INR APTT VBG pH VBG pCO2 VBG pO2 VBG HCO3 VBG O2 Saturation VBG Base Excess Sodium 139 Potassium 3.6 Chloride 100 Carbon Dioxide 27 Anion Gap 16 BUN 14 Creatinine 1.57 H Estim Creat Clear Calc 58.7 Estimated GFR 32 POC Glucose Random Glucose 151 H Lactic Acid 1.1 Calcium 8.1 L D Magnesium Total Bilirubin Direct Bilirubin AST ALT Alkaline Phosphatase Total Creatine Kinase Troponin I High Sens B-Natriuretic Peptide Total Protein Albumin Lipase 14 Urine Color Urine Appearance Urine pH Ur Specific [place] Urine Protein Urine Glucose (UA) Urine Ketones Urine Blood Urine Nitrite Ur Leukocyte Esterase Urine RBC Urine WBC Ur Squamous Epith Cells Urine Bacteria Hyaline Casts COVID-19 (ELLEN) COVID-19 Clin Com 01/09/21 01/09/21 01/09/21 17:13 17:13 17:13 WBC RBC Hgb Hct MCV MCH MCHC RDW Plt Count MPV Immature Gran % (Auto) Neut % (Auto) Lymph % (Auto) [place] % (Auto) Eos % (Auto) Baso % (Auto) Lymph # (Auto) [place] # (Auto) Eos # (Auto) Baso # (Auto) Abs Immat Gran (auto) Absolute Neuts (auto) Absolute Nucleated RBC Nucleated RBC % (auto) PT 19.7 H INR 1.7 H APTT 70.6 H* VBG pH VBG pCO2 VBG pO2 VBG HCO3 VBG O2 Saturation VBG Base Excess Sodium Potassium Chloride Carbon Dioxide Anion Gap BUN Creatinine Estim Creat Clear Calc Estimated GFR POC Glucose Random Glucose Lactic Acid Calcium Magnesium Total Bilirubin Direct Bilirubin AST ALT Alkaline Phosphatase Total Creatine Kinase Troponin I High Sens B-Natriuretic Peptide 32 Total Protein Albumin Lipase Urine Color Urine Appearance Urine pH Ur Specific [place] Urine Protein Urine Glucose (UA) Urine Ketones Urine Blood Urine Nitrite Ur Leukocyte Esterase Urine RBC Urine WBC Ur Squamous Epith Cells Urine Bacteria Hyaline Casts COVID-19 (ELLEN) Negative COVID-19 Clin Com See Note 01/09/21 01/09/21 01/09/21 17:13 17:13 17:19 WBC RBC Hgb Hct MCV MCH MCHC RDW Plt Count MPV Immature Gran % (Auto) Neut % (Auto) Lymph % (Auto) [place] % (Auto) Eos % (Auto) Baso % (Auto) Lymph # (Auto) [place] # (Auto) Eos # (Auto) Baso # (Auto) Abs Immat Gran (auto) Absolute Neuts (auto) Absolute Nucleated RBC Nucleated RBC % (auto) PT INR APTT VBG pH 7.41 VBG pCO2 48 VBG pO2 39 VBG HCO3 31 H VBG O2 Saturation 61.0 VBG Base Excess 5.5 Sodium Potassium Chloride Carbon Dioxide Anion Gap BUN Creatinine Estim Creat Clear Calc Estimated GFR POC Glucose Random Glucose Lactic Acid Calcium Magnesium 1.6 Total Bilirubin 0.8 Direct Bilirubin 0.3 AST 39 H D ALT 13 Alkaline Phosphatase 56 Total Creatine Kinase 879 H D Troponin I High Sens 130.4 H* B-Natriuretic Peptide Total Protein 7.3 Albumin 4.0 Lipase Urine Color Urine Appearance Urine pH Ur Specific [place] Urine Protein Urine Glucose (UA) Urine Ketones Urine Blood Urine Nitrite Ur Leukocyte Esterase Urine RBC Urine WBC Ur Squamous Epith Cells Urine Bacteria Hyaline Casts COVID-19 (ELLEN) COVID-19 Clin Com 01/09/21 01/09/21 01/10/21 19:47 20:34 06:18 WBC 5.2 RBC 3.09 L Hgb 9.5 L Hct 29.5 L MCV 95.5 MCH 30.7 MCHC 32.2 RDW 14.2 Plt Count 176 MPV 9.6 Immature Gran % (Auto) 0.2 Neut % (Auto) 69.0 Lymph % (Auto) 18.2 L [place] % (Auto) 10.3 Eos % (Auto) 1.9 Baso % (Auto) 0.4 Lymph # (Auto) 1.0 L [place] # (Auto) 0.5 Eos # (Auto) 0.1 Baso # (Auto) 0.0 Abs Immat Gran (auto) 0.01 Absolute Neuts (auto) 3.6 Absolute Nucleated RBC 0.000 Nucleated RBC % (auto) 0.0 PT INR APTT VBG pH VBG pCO2 VBG pO2 VBG HCO3 VBG O2 Saturation VBG Base Excess Sodium Potassium Chloride Carbon Dioxide Anion Gap BUN Creatinine Estim Creat Clear Calc Estimated GFR POC Glucose Random Glucose Lactic Acid Calcium Magnesium Total Bilirubin Direct Bilirubin AST ALT Alkaline Phosphatase Total Creatine Kinase Troponin I High Sens 127.4 H* B-Natriuretic Peptide Total Protein Albumin Lipase Urine Color YELLOW Urine Appearance CLEAR Urine pH 6.0 Ur Specific [place] >= 1.030 H Urine Protein 1+ H Urine Glucose (UA) NEG Urine Ketones 5 Urine Blood NEG Urine Nitrite NEG Ur Leukocyte Esterase NEG Urine RBC 0-2 Urine WBC 1-4 Ur Squamous Epith Cells TRACE Urine Bacteria NONE Hyaline Casts 0-2 COVID-19 (ELLEN) COVID-19 Clin Com 01/10/21 01/10/21 01/10/21 06:18 06:18 07:15 WBC RBC Hgb Hct MCV MCH MCHC RDW Plt Count MPV Immature Gran % (Auto) Neut % (Auto) Lymph % (Auto) [place] % (Auto) Eos % (Auto) Baso % (Auto) Lymph # (Auto) [place] # (Auto) Eos # (Auto) Baso # (Auto) Abs Immat Gran (auto) Absolute Neuts (auto) Absolute Nucleated RBC Nucleated RBC % (auto) PT INR APTT VBG pH VBG pCO2 VBG pO2 VBG HCO3 VBG O2 Saturation VBG Base Excess Sodium 139 Potassium 3.5 Chloride 102 Carbon Dioxide 30 H Anion Gap 11 L BUN 12 Creatinine 0.81 Estim Creat Clear Calc 71.7 Estimated GFR > 60 POC Glucose 147 H Random Glucose 141 H Lactic Acid Calcium 7.6 L D Magnesium Total Bilirubin Direct Bilirubin AST ALT Alkaline Phosphatase Total Creatine Kinase 450 H D Troponin I High Sens B-Natriuretic Peptide Total Protein Albumin Lipase Urine Color Urine Appearance Urine pH Ur Specific [place] Urine Protein Urine Glucose (UA) Urine Ketones Urine Blood Urine Nitrite Ur Leukocyte Esterase Urine RBC Urine WBC Ur Squamous Epith Cells Urine Bacteria Hyaline Casts COVID-19 (ELLEN) COVID-19 Clin Com Imaging Radiologist's impression: Impressions Head CT 01/09/21 16:25 IMPRESSION: No evidence of hemorrhage. No acute findings. Chest X-Ray 01/09/21 16:37 IMPRESSION: Mild increased pulmonary vascular markings without congestion, no change from previous study. Procedures Date of Service Date of Service: 01/10/21
[2021-01-10 11:46] LABS: Glucose, Whole Blood 196 mg/dL (60-115)
[2021-01-10] MEDS: Insulin Lispro 100 UNIT/ML 3 ML VIAL SUBCUT ×2 (11:47→20:13)
[2021-01-10 17:00] LABS: Glucose, Whole Blood 143 mg/dL (60-115)
[2021-01-10] MEDS: Insulin Glargine,Hum.rec.anlog 100 UNIT/ML 10 ML VIAL 10 UNIT SUBCUT (20:14)
[2021-01-10] MEDS: traZODone HCL 100 MG TABLET PO (20:14)
[2021-01-10 20:15] LABS: Glucose, Whole Blood 209 mg/dL (60-115)
[2021-01-11] VITALS (8 sets, daily range): BP systolic 118–151; BP diastolic 46–81; PULSE 59–68; RESP 16–19; TEMP 36.2–37.1; O2SAT 92–97
--- NOTE | 2021-01-11 04:51 | PC.NURSE ---
0445 pt had 5 beat v-tach. notified.pt asymptomatic
[2021-01-11 07:07] LABS: Hemoglobin 9.3 g/dl (12.0-16.0); Mean Corpuscular HGB Conc 32.1 g/dl (31.0-35.0); Mean Corpuscular Hemoglobin 30.7 pg (27.0-33.0); Mean Corpuscular Volume 95.7 fL (80-98); Mean Platelet Volume 9.5 fL (9.4-12.3); Platelet Count 162 X10*3/uL (160-400); Red Blood Count 3.03 X10*6/uL (4.20-5.50); Red Cell Distribution Width 13.9 % (11.0-16.0)
[2021-01-11 07:30] LABS: Anion Gap 11 (12-20); Blood Urea Nitrogen 10 mg/dL (9-16); Calcium 7.5 mg/dL (8.4-10.2); Carbon Dioxide 28 mmol/L (22-29); Chloride 104 mmol/L (96-108); Estimated Glomerular Filt Rate > 60; Glucose Fasting 153 mg/dL (60-99); Potassium 3.9 mmol/L (3.3-5.1); Sodium 139 mmol/L (135-145)
[2021-01-11 07:55] LABS: Glucose, Whole Blood 144 mg/dL (60-115)
[2021-01-11] MEDS: 0.9 % Sodium Chloride Flush 3 ML SYRINGE IVFLUSH ×2 (09:19→16:31)
[2021-01-11] MEDS: Escitalopram Oxalate 10 MG TABLET PO (09:19)
[2021-01-11] MEDS: Pregabalin 100 MG CAPSULE PO ×3 (09:19→21:01)
[2021-01-11] MEDS: clonazePAM 1 MG TABLET PO ×2 (09:19→21:01)
[2021-01-11] MEDS: Dabigatran Etexilate Mesylate 150 MG CAPSULE PO ×2 (09:19→21:01)
--- NOTE | 2021-01-11 09:44 | HO.PM.IMPN ---
Subjective Subjective Date of Service: 01/11/21 Interval History: feels well, wants to go home Cardiovascular Cardiovascular: Reports no additional cardiovascular complaints Respiratory Respiratory: Reports no additional respiratory complaints Physical Exam Vital Signs: Vital Signs: Last Vital Signs Temp 98.2 F 01/11/21 07:35 Pulse 59 01/11/21 07:35 Resp 18 01/11/21 07:35 BP 130/62 01/11/21 07:35 Pulse Ox 97 01/11/21 07:35 Body Mass Index 30.4 General: AO X 3, no acute distress Resp: Crackles, LE edema CVS: S1,S2,RRR GI: soft, non tender, non distended Neuro: motor grossly intact Psych: appropriate affect Objective Data Current Medications Generic Name Dose Route Start Last Admin Trade Name Freq PRN Reason Stop Dose Admin Acetaminophen 650 mg 01/09/21 22:28 Acetaminophen 325 Mg Tablet PO Q6H PRN Pain, Mild (Pain Scale 1-3) Albuterol Sulfate 2 puff 01/09/21 22:31 Albuterol Sulfate 90 Mcg 8 Gm Inhaler INHALE Q6H PRN Shortness Of Breath Or Wheezing Clonazepam 1 mg 01/10/21 09:00 01/11/21 09:19 Clonazepam 1 Mg Tablet PO 1 mg BID DANELLE Administration Dabigatran 150 mg 01/10/21 09:00 01/11/21 09:19 Dabigatran Etexilate Mesylate 150 Mg Capsule PO 150 mg BID DANELLE Administration Escitalopram Oxalate 10 mg 01/10/21 09:00 01/11/21 09:19 Escitalopram Oxalate 10 Mg Tablet PO 10 mg DAILY DANELLE Administration Furosemide 40 mg 01/11/21 09:45 Furosemide 40 Mg/4 Ml Vial IVPUSH BID@0900,1800 [facility] Protocol Insulin Glargine 10 unit 01/10/21 21:00 01/10/21 20:14 Insulin Glargine,Hum.Rec.Anlog 100 Unit/Ml 10 Ml Vial SUBCUT 10 unit BEDTIME DANELLE Administration Insulin Human Lispro 0 unit 01/10/21 07:30 01/11/21 07:53 Insulin Lispro 100 Unit/Ml 3 Ml Vial SUBCUT Not Given QIDACHS [facility] Protocol Pharmacy Consult 1 each 01/09/21 16:36 Consult Rx Perform Med Rec MISCELLANE ONCE PRN Consult order Pregabalin 100 mg 01/10/21 09:00 01/11/21 09:19 Pregabalin 100 Mg Capsule PO 100 mg TID DANELLE Administration Sodium Chloride 3 ml 01/10/21 00:00 01/11/21 09:19 0.9 % Sodium Chloride Flush 3 Ml Syringe IVFLUSH 3 ml QSHIFT DANELLE Administration Trazodone HCl 100 mg 01/10/21 21:00 01/10/21 20:14 Trazodone Hcl 100 Mg Tablet PO 100 mg BEDTIME DANELLE Administration Labs CBC & Chem 7: 01/11/21 06:29 01/11/21 06:29 Labs: Laboratory Results - last 24 hr 01/10/21 01/10/21 01/10/21 11:29 16:53 20:07 WBC RBC Hgb Hct MCV MCH MCHC RDW Plt Count MPV Absolute Nucleated RBC Nucleated RBC % (auto) Sodium Potassium Chloride Carbon Dioxide Anion Gap BUN Creatinine Estim Creat Clear Calc Estimated GFR POC Glucose 196 H 143 H 209 H Fasting Glucose Calcium Total Creatine Kinase 01/11/21 01/11/21 01/11/21 06:29 06:29 06:29 WBC 5.0 RBC 3.03 L Hgb 9.3 L Hct 29.0 L MCV 95.7 MCH 30.7 MCHC 32.1 RDW 13.9 Plt Count 162 MPV 9.5 Absolute Nucleated RBC 0.000 Nucleated RBC % (auto) 0.0 Sodium 139 Potassium 3.9 Chloride 104 Carbon Dioxide 28 Anion Gap 11 L BUN 10 Creatinine 0.70 Estim Creat Clear Calc 83.0 Estimated GFR > 60 POC Glucose Fasting Glucose 153 H D Calcium 7.5 L Total Creatine Kinase 177 H D 01/11/21 07:38 WBC RBC Hgb Hct MCV MCH MCHC RDW Plt Count MPV Absolute Nucleated RBC Nucleated RBC % (auto) Sodium Potassium Chloride Carbon Dioxide Anion Gap BUN Creatinine Estim Creat Clear Calc Estimated GFR POC Glucose 144 H Fasting Glucose Calcium Total Creatine Kinase Microbiology Microbiology Results: Microbiology 01/09/21 17:13 Blood Culture - Preliminary Blood - Venous No growth after 24 hours. 01/09/21 17:13 Blood Culture - Preliminary Blood - Venous No growth after 24 hours. Quality Stroke Does the patient have a stroke diagnosis?: No VTE Prior VTE?: No VTE Risk Level:: Medical - moderate - high VTE Device Contraindication: Treatment Not Indicated VTE Drug Contraindication: N/A - Med Ordered Assessment and Plan (1) ANABELL (acute kidney injury): Status: Acute Assessment and Plan: 75F presented with weakness, found to have ANABELL, mild rhabdo, indeterminent troponins, now with hypoxia anabell resolved with ivf acute hypoxic respiratory failure suspect acute on chronic diastolic chf stop fluids, IV lasix check cxr, echo mild rhabdo resolved with ivf indeterminent troponins cardio appreciated due to mild rhabdo DM insulin paroxysmal afib pradaxa debility/falls PT eval
[2021-01-11 11:45] LABS: Glucose, Whole Blood 217 mg/dL (60-115)
[2021-01-11] MEDS: Insulin Lispro 100 UNIT/ML 3 ML VIAL SUBCUT ×3 (11:49→20:59)
[2021-01-11] MEDS: Furosemide 40 MG/4 ML VIAL IVPUSH (12:56)
[2021-01-11 16:15] LABS: Glucose, Whole Blood 170 mg/dL (60-115)
[2021-01-11] MEDS: HYDROcodone Bit/Acetam 5/325 TABLET 1 TAB PO (17:00)
[2021-01-11 20:36] LABS: Glucose, Whole Blood 200 mg/dL (60-115)
[2021-01-11] MEDS: Insulin Glargine,Hum.rec.anlog 100 UNIT/ML 10 ML VIAL 10 UNIT SUBCUT (21:00)
[2021-01-11] MEDS: traZODone HCL 100 MG TABLET PO (21:01)
[2021-01-12] VITALS (7 sets, daily range): BP systolic 119–140; BP diastolic 51–71; PULSE 57–66; RESP 16–18; TEMP 36.3–36.7; O2SAT 85–96
[2021-01-12 05:34] LABS: Hematocrit 28.7 % (37-47); Hemoglobin 9.4 g/dl (12.0-16.0); Mean Corpuscular HGB Conc 32.8 g/dl (31.0-35.0); Mean Corpuscular Hemoglobin 31.4 pg (27.0-33.0); Mean Platelet Volume 9.5 fL (9.4-12.3); Platelet Count 179 X10*3/uL (160-400); Red Blood Count 2.99 X10*6/uL (4.20-5.50); Red Cell Distribution Width 13.7 % (11.0-16.0); White Blood Count 4.3 X10*3/uL (4.8-10.8)
[2021-01-12 05:54] LABS: Anion Gap 10 (12-20); Blood Urea Nitrogen 10 mg/dL (9-16); Calcium 7.8 mg/dL (8.4-10.2); Carbon Dioxide 33 mmol/L (22-29); Chloride 102 mmol/L (96-108); Estimated Glomerular Filt Rate > 60; Glucose Fasting 134 mg/dL (60-99); Magnesium 1.7 mg/dL (1.6-2.6); Potassium 3.6 mmol/L (3.3-5.1); Sodium 141 mmol/L (135-145)
[2021-01-12 05:57] LABS: B Type Natriuretic Peptide 93 pg/mL (<100)
--- NOTE | 2021-01-12 07:30 | CA_ITS ---
Transthoracic Echocardiogram Patient (Last, First, Middle): Amarilys Badillo M Gender: Female Date of : 1945 Age: 75 Procedure Date: 01/12/2021 Procedure Type: Transthoracic Echocardiogram Location: [facility] [place] Height: 172.72 cm Weight: 90.27 kg BSA: 2.04 m2 Heart Rate: bpm BP: 138 / 71 mmHg Quiller Tender: Referring MD: Ander Mooney MD Symptoms: elevated troponin Study Quality: Technically Difficult ECG Rhythm: Sinus Conclusions: - The left ventricular systolic function is normal. The calculated ejection fraction is 58% by biplane method. - Possible basal inferior hypokinesis. - There is moderate posterior mitral annular calcification. Findings Left Ventricle Normal left ventricular cavity size. There is mildly increased left ventricular wall thickness. The left ventricular systolic function is normal. The calculated ejection fraction is 58% by biplane method. Diastolic function is normal for age. Possible basal inferior hypokinesis. Right Ventricle Normal right ventricular cavity size. There is normal right ventricular systolic function. (measured TAPSE 2cm) Atria The left atrium is mildly dilated. The right atrium is normal in size. Aortic Valve The aortic valve was not well visualized. There is no aortic valve stenosis. The mean gradient is 6 mmHg. There is no aortic valve regurgitation. Mitral Valve There is moderate posterior mitral annular calcification. There is trace mitral valve regurgitation. There is no mitral valve stenosis. Pulmonic Valve The pulmonic valve was not well visualized. Tricuspid Valve There is trace tricuspid valve regurgitation. The pulmonary artery systolic pressure is normal. Great Vessels The aorta was not well visualized. Venous The inferior vena cava is normal in size and collapses greater than 50% with inspiration. Pericardium/Pleural There is no evidence of pericardial effusion. Prior Study Comparison Changes noted compared to prior study dated: 08/10/2016. See comments on wall motion. Measurements 2D Linear Measurements IVSd: 1.25 0.6-0.9/0.6-1.0 cm LVIDd: 5.40 3.9-5.3/4.2-5.9 cm LVIDd Index: 2.65 2.4-3.2/2.2-3.1 cm/m2 LVIDs: 3.51 2.0-3.6 cm LVPWd: 1.25 0.7-1.1 cm Ao Root: 2.90 2.1-3.5 cm LA Diam: 4.70 2.7-3.8/3.0-4.0 cm LAIDs Index: 2.30 1.5-2.3 cm/m2 LV Mass: 349.00 67-162/88-224 g LV Mass Index: 171.08 43-95/49-115 g/m2 LVOT Diam: 2.00 3.0+(-)1.3 cm 2D Systolic Function EF 4C: 65.90 >55% EF 2C: 54.60 >55% EF BiP: 58.10 >55% Mitral Valve MV Pk E: 0.75 MV PK A: 0.61 MV Decel Time: 362.00 E/A: 1.20 E'Lateral: 10.10 E'Medial: 6.09 E/E' Med: 12.20 E/E' Lat: 7.40 PHT: 106.00 MVA PHT: 2.08 Decel [place]: 2.06 Aortic Valve AoV Pk Aldo: 1.64 AoV Mn Aldo: 1.11 AoV VTI: 0.33 AoV Pk Grad: 11.00 Aov Mn Grad: 6.00 LAY Cont.VTI: 1.99 LVOT LVOT Pk Aldo: 1.09 LVOT Mn Aldo: 0.66 LVOT VTI: 0.21 LVOT Pk Grad: 5.00 LVOT Mn Grad: 2.00 LVOT Diam: 2.00 LVOT Area: 3.14 Diastolic Function MV Pk E: 0.75 MV Pk A: 0.61 E/A: 1.20 E'Medial: 6.09 E/E' Med: 12.20 E' Laterial: 10.10 E/E' Lat: 7.40 Right Ventricle TAPSE (mm): 1.70 TVS' Aldo: 12.30 Tricuspid Valve TR Pk Aldo: 2.00 TR Pk Grad: 16.00 RA Press: 3.00 RVSP: 19.00 Great Vessels Aorta Ao Root-2D: 2.90 2.0-3.7 cm Pulmonary Valve PV Pk Aldo: 1.17 Peak PV Grad: 5.00 Updated in Other Vendor System with Status of Final Damián Rivera MD electronically signed on 01/12/2021 5:03:26 PM with status of Final
[2021-01-12 07:57] LABS: Glucose, Whole Blood 148 mg/dL (60-115)
[2021-01-12] MEDS: Dabigatran Etexilate Mesylate 150 MG CAPSULE PO ×2 (08:21→20:50)
[2021-01-12] MEDS: clonazePAM 1 MG TABLET PO ×2 (08:21→20:50)
[2021-01-12] MEDS: Escitalopram Oxalate 10 MG TABLET PO (08:21)
[2021-01-12] MEDS: Pregabalin 100 MG CAPSULE PO ×3 (08:21→20:50)
[2021-01-12] MEDS: 0.9 % Sodium Chloride Flush 3 ML SYRINGE IVFLUSH ×3 (08:21→20:51)
[2021-01-12] MEDS: Furosemide 40 MG/4 ML VIAL IVPUSH (08:52)
--- NOTE | 2021-01-12 09:27 | P.PNIM_ITS ---
Assessment and Plan (1) ANABELL (acute kidney injury): Status: Acute Assessment and Plan: 75F presented with weakness, found to have ANABELL, mild rhabdo, indeterminent troponins, now with hypoxia anabell resolved with ivf acute hypoxic respiratory failure suspect acute on chronic diastolic chf plus atelectasis stopped fluids, IV lasix check echo incentive spirometry mild rhabdo resolved with ivf indeterminent troponins cardio appreciated due to mild rhabdo DM insulin paroxysmal afib pradaxa debility/falls PT eval Subjective Subjective Date of Service: 01/12/21 Interval History: no complaints, wants to go home Cardiovascular Cardiovascular: Reports no additional cardiovascular complaints Gastrointestinal Gastrointestinal: Reports no additional gastrointestinal complaints Physical Exam Vital Signs: Vital Signs: Last Vital Signs Temp 97.6 F 01/12/21 07:38 Pulse 57 01/12/21 07:38 Resp 18 01/12/21 07:38 BP 140/53 H 01/12/21 07:38 Pulse Ox 96 01/12/21 09:01 Body Mass Index 30.4 General: AO X 3, no acute distress, appears more confused today though, does not fully understand medical condidtion, not making rational statesments Resp: diminshed CVS: S1,S2,RRR GI: soft, non tender, non distended Neuro: motor grossly intact Psych: impaired insight Objective Data Current Medications Generic Name Dose Route Start Last Admin Trade Name Freq PRN Reason Stop Dose Admin Hydrocodone Bitart/Acetaminophen 1 tab 01/11/21 16:39 01/11/21 17:00 Hydrocodone Bit/Acetam 5/325 Tablet PO 1 tab Q4H PRN Administration Pain, Moderate (Pain Scale 4-6 Albuterol Sulfate 2 puff 01/09/21 22:31 Albuterol Sulfate 90 Mcg 8 Gm Inhaler INHALE Q6H PRN Shortness Of Breath Or Wheezing Clonazepam 1 mg 01/10/21 09:00 01/12/21 08:21 Clonazepam 1 Mg Tablet PO 1 mg BID DANELLE Administration Dabigatran 150 mg 01/10/21 09:00 01/12/21 08:21 Dabigatran Etexilate Mesylate 150 Mg Capsule PO 150 mg BID DANELLE Administration Escitalopram Oxalate 10 mg 01/10/21 09:00 01/12/21 08:21 Escitalopram Oxalate 10 Mg Tablet PO 10 mg DAILY DANELLE Administration Insulin Glargine 10 unit 01/10/21 21:00 01/11/21 21:00 Insulin Glargine,Hum.Rec.Anlog 100 Unit/Ml 10 Ml Vial SUBCUT 10 unit BEDTIME DANELLE Administration Insulin Human Lispro 0 unit 01/10/21 07:30 01/12/21 07:45 Insulin Lispro 100 Unit/Ml 3 Ml Vial SUBCUT Not Given QIDACHS [facility] Protocol Pharmacy Consult 1 each 01/09/21 16:36 Consult Rx Perform Med Rec MISCELLANE ONCE PRN Consult order Pregabalin 100 mg 01/10/21 09:00 01/12/21 08:21 Pregabalin 100 Mg Capsule PO 100 mg TID DANELLE Administration Sodium Chloride 3 ml 01/10/21 00:00 01/12/21 08:21 0.9 % Sodium Chloride Flush 3 Ml Syringe IVFLUSH 3 ml QSHIFT DANELLE Administration Trazodone HCl 100 mg 01/10/21 21:00 01/11/21 21:01 Trazodone Hcl 100 Mg Tablet PO 100 mg BEDTIME DANELLE Administration Labs CBC & Chem 7: 01/12/21 04:37 01/12/21 04:37 Labs: Laboratory Results - last 24 hr 01/11/21 01/11/21 01/11/21 11:33 16:06 20:28 WBC RBC Hgb Hct MCV MCH MCHC RDW Plt Count MPV Absolute Nucleated RBC Nucleated RBC % (auto) Sodium Potassium Chloride Carbon Dioxide Anion Gap BUN Creatinine Estim Creat Clear Calc Estimated GFR POC Glucose 217 H 170 H 200 H Fasting Glucose Calcium Magnesium B-Natriuretic Peptide 01/12/21 01/12/21 01/12/21 04:37 04:37 04:37 WBC 4.3 L RBC 2.99 L Hgb 9.4 L Hct 28.7 L MCV 96.0 MCH 31.4 MCHC 32.8 RDW 13.7 Plt Count 179 MPV 9.5 Absolute Nucleated RBC 0.000 Nucleated RBC % (auto) 0.0 Sodium 141 Potassium 3.6 Chloride 102 Carbon Dioxide 33 H Anion Gap 10 L BUN 10 Creatinine 0.70 Estim Creat Clear Calc 83.0 Estimated GFR > 60 POC Glucose Fasting Glucose 134 H Calcium 7.8 L Magnesium 1.7 B-Natriuretic Peptide 93 01/12/21 07:39 WBC RBC Hgb Hct MCV MCH MCHC RDW Plt Count MPV Absolute Nucleated RBC Nucleated RBC % (auto) Sodium Potassium Chloride Carbon Dioxide Anion Gap BUN Creatinine Estim Creat Clear Calc Estimated GFR POC Glucose 148 H Fasting Glucose Calcium Magnesium B-Natriuretic Peptide Microbiology Microbiology Results: Microbiology 01/09/21 17:13 Blood Culture - Preliminary Blood - Venous No growth after 48 hours. 01/09/21 17:13 Blood Culture - Preliminary Blood - Venous No growth after 48 hours. Quality Stroke Does the patient have a stroke diagnosis?: No VTE Prior VTE?: No VTE Risk Level:: Medical - moderate - high VTE Device Contraindication: Treatment Not Indicated VTE Drug Contraindication: N/A - Med Ordered
[2021-01-12] MEDS: Insulin Lispro 100 UNIT/ML 3 ML VIAL SUBCUT ×3 (12:09→20:51)
[2021-01-12 12:30] LABS: Glucose, Whole Blood 326 mg/dL (60-115)
[2021-01-12] MEDS: HYDROcodone Bit/Acetam 5/325 TABLET 1 TAB PO (15:39)
[2021-01-12 16:33] LABS: Glucose, Whole Blood 173 mg/dL (60-115)
--- NOTE | 2021-01-12 16:40 | MHC.CLN ---
NUTRITION CONSULT PATIENT WITH STAGE I TO BUTTOCKS. DIET=DIABETIC 2000 KCAL (28.4 G/KG CMW). INTAKE VARIABLE, 25-100%. WILL ADD GLUCERNA 240 ML BID TO PROVIDE 474 KCAL, 19.8 G PROTEIN.
[2021-01-12] MEDS: Insulin Glargine,Hum.rec.anlog 100 UNIT/ML 10 ML VIAL 10 UNIT SUBCUT (20:50)
[2021-01-12] MEDS: traZODone HCL 100 MG TABLET PO (20:50)
[2021-01-12 21:45] LABS: Glucose, Whole Blood 259 mg/dL (60-115)
[2021-01-13] VITALS: BP 143/57; PULSE 64; RESP 18; TEMP 36.6; O2SAT 92
[2021-01-13 03:48] VITALS: BP 129/56; PULSE 60; RESP 16; TEMP 36.1; O2SAT 92
[2021-01-13 06:05] LABS: Hemoglobin 9.5 g/dl (12.0-16.0); Mean Corpuscular HGB Conc 31.7 g/dl (31.0-35.0); Mean Corpuscular Hemoglobin 30.4 pg (27.0-33.0); Mean Corpuscular Volume 95.8 fL (80-98); Mean Platelet Volume 9.5 fL (9.4-12.3); Platelet Count 190 X10*3/uL (160-400); Red Blood Count 3.13 X10*6/uL (4.20-5.50); Red Cell Distribution Width 13.7 % (11.0-16.0); White Blood Count 4.7 X10*3/uL (4.8-10.8)
[2021-01-13 06:32] LABS: Anion Gap 10 (12-20); Blood Urea Nitrogen 14 mg/dL (9-16); Carbon Dioxide 33 mmol/L (22-29); Chloride 100 mmol/L (96-108); Creatinine Clr Calc Pharmacy 78.5; Estimated Glomerular Filt Rate > 60; Glucose Fasting 156 mg/dL (60-99); Magnesium 1.6 mg/dL (1.6-2.6); Potassium 3.6 mmol/L (3.3-5.1); Sodium 139 mmol/L (135-145)
[2021-01-13 07:21] VITALS: BP 143/71; PULSE 61; RESP 17; TEMP 36.7; O2SAT 93
[2021-01-13 07:21] LABS: Glucose, Whole Blood 149 mg/dL (60-115)
[2021-01-13] MEDS: Dabigatran Etexilate Mesylate 150 MG CAPSULE PO (07:48)
[2021-01-13] MEDS: HYDROcodone Bit/Acetam 5/325 TABLET 1 TAB PO (07:48)
[2021-01-13] MEDS: 0.9 % Sodium Chloride Flush 3 ML SYRINGE IVFLUSH (07:48)
[2021-01-13] MEDS: Pregabalin 100 MG CAPSULE PO (07:48)
[2021-01-13] MEDS: Escitalopram Oxalate 10 MG TABLET PO (07:48)
[2021-01-13] MEDS: clonazePAM 1 MG TABLET PO (07:48)
[2021-01-13 11:42] LABS: Glucose, Whole Blood 230 mg/dL (60-115)
[2021-01-13] MEDS: Insulin Lispro 100 UNIT/ML 3 ML VIAL SUBCUT (11:52)
--- NOTE | 2021-01-13 11:58 | P.F2F_ITS ---
Service Date Service Date: 01/13/21 Encounter Date of encounter: 01/13/21 Reasons for Services Reason for correction: medication management, medication treatment and teach disease management Reason for physical therapy: home safety and mobility and therapeutic exercises Homebound: Leaving the home is medically contraindicated at this time without the asist of a device and/or another person due th the listed conditions above and below. Certification: Based on the above findings, I certify that this patient is confined to the home and needs intermittent correction care, physical therapy and/or speech therapy, or continues to need occupational therapy. The patient is under my care, and I have initiated the establishment of the plan of care. The patient will be followed by a physician who will periodically review the plan of care.
--- NOTE | 2021-01-13 11:59 | PM.DS ---
DS: Providers Provider Date of Service: 01/13/21 Date of admission: 01/09/21 22:28 Primary care physician: Tim Ding MD Consults: 01/09/21 22:33 Consult to Cardiology Routine Consulting Provider: Quoc Olson Reason for consultation: indeterminate troponins DS: Diagnosis Discharge Diagnosis (1) ANABELL (acute kidney injury): Status: Acute DS: Medications Discharge Medications Home Medications: Home Medications Medication Instructions Recorded Confirmed albuterol sulfate 90 mcg/actuation 2 puff INHALATION Q6H PRN 06/18/20 01/09/21 aerosol inhaler Lantus Solostar U-100 Insulin 30 unit SUBCUT BEDTIME 01/09/21 01/09/21 Previous Rx's Medication Instructions Recorded escitalopram oxalate 10 mg tablet 10 mg PO DAILY #30 tab 05/03/20 metformin 500 mg tablet 500 mg PO BID #180 tab 05/25/20 pregabalin 100 mg capsule 100 mg PO TID 30 Days #90 cap 09/08/20 amlodipine 10 mg tablet 10 mg PO DAILY #90 tab 09/14/20 dabigatran etexilate 150 mg capsule 150 mg PO BID #180 cap 09/14/20 simvastatin 10 mg tablet 10 mg PO BEDTIME #90 tab 09/14/20 amoxicillin 500 mg capsule 500 mg PO DAILY 30 Days #30 cap 11/20/20 furosemide 20 mg tablet 20 mg PO DAILY 90 Days #90 tab 11/20/20 trazodone 50 mg tablet 150 mg PO BEDTIME #90 tab 11/20/20 clonazepam 1 mg tablet 1 mg PO BID 30 Days #60 tab 12/09/20 DS: Summary Hospital Course Hospital Course: patient was admitted for fall complicated by ANABELL, mild rhabdomyolosis, elevated troponin of 130. she was given IV fluids, anabell resolved, rhabdo resolved. she was seen by caridology who felt torponins were secondary to rhabdo. course was complicated by acute hypoxic respiratory failure, cxr consistent with atelectasis, possible some acute on chronic diastolic chf. she was treated with incentive spirometry and iv lasix and hypoxia resolved. echo showed normal EF with possible basal inferior hypokinesis. she will be discharged home and follow up with cardiology for any further work up. Time Spent with Patient Time attestation: Total time spent providing and/or coordinating discharge services: Discharge coordination time: Greater than 30 minutes Quality: Stroke Does the patient have a stroke diagnosis?: No Physical Exam Vital Signs: Vital Signs: Last Vital Signs Temp 98.1 F 01/13/21 07:21 Pulse 61 01/13/21 07:21 Resp 17 01/13/21 07:21 BP 143/71 H 01/13/21 07:21 Pulse Ox 93 01/13/21 07:21 Body Mass Index 30.4 General: AO X 3, no acute distress Resp: CTA bilateral CVS: S1,S2,RRR GI: soft, non tender, non distended Neuro: motor grossly intact Psych: appropriate affect DS: Data Data Completed and Pending Labs on day of discharge: Laboratory Results - last 24 hr 01/12/21 01/12/21 01/12/21 12:05 15:45 20:28 WBC RBC Hgb Hct MCV MCH MCHC RDW Plt Count MPV Absolute Nucleated RBC Nucleated RBC % (auto) Sodium Potassium Chloride Carbon Dioxide Anion Gap BUN Creatinine Estim Creat Clear Calc Estimated GFR POC Glucose 326 H 173 H 259 H Fasting Glucose Calcium Magnesium 01/13/21 01/13/21 01/13/21 05:27 05:27 07:17 WBC 4.7 L RBC 3.13 L Hgb 9.5 L Hct 30.0 L MCV 95.8 MCH 30.4 MCHC 31.7 RDW 13.7 Plt Count 190 MPV 9.5 Absolute Nucleated RBC 0.000 Nucleated RBC % (auto) 0.0 Sodium 139 Potassium 3.6 Chloride 100 Carbon Dioxide 33 H Anion Gap 10 L BUN 14 Creatinine 0.74 Estim Creat Clear Calc 78.5 Estimated GFR > 60 POC Glucose 149 H Fasting Glucose 156 H Calcium 8.0 L Magnesium 1.6 01/13/21 11:18 WBC RBC Hgb Hct MCV MCH MCHC RDW Plt Count MPV Absolute Nucleated RBC Nucleated RBC % (auto) Sodium Potassium Chloride Carbon Dioxide Anion Gap BUN Creatinine Estim Creat Clear Calc Estimated GFR POC Glucose 230 H Fasting Glucose Calcium Magnesium Preliminary micro results at discharge 01/09/21 17:13 Blood Culture - Preliminary Blood - Venous No growth after 48 hours. 01/09/21 17:13 Blood Culture - Preliminary Blood - Venous No growth after 48 hours. Discharge Plan Discharge Patient Disposition: Home Health Service Discharge Diagnosis: anabell Referrals: Po,Tim Murphy MD [Primary Care Provider] - 1 Week Discharge Medications: Continued escitalopram oxalate 10 mg tablet 10 mg PO DAILY Qty: 30 RF: 3 metformin 500 mg tablet 500 mg PO BID Qty: 180 RF: 2 albuterol sulfate 90 mcg/actuation HFA aerosol inhaler 2 puff inhalation Q6H PRN (Reason: Shortness Of Breath Or Wheezing) RF: 0 pregabalin 100 mg capsule 100 mg PO TID 30 Days Qty: 90 RF: 3 amlodipine 10 mg tablet 10 mg PO DAILY Qty: 90 RF: 0 dabigatran etexilate [Pradaxa] 150 mg capsule 150 mg PO BID Qty: 180 RF: 0 simvastatin 10 mg tablet 10 mg PO BEDTIME Qty: 90 RF: 0 clonazepam 1 mg tablet 1 mg PO BID 30 Days Qty: 60 RF: 3 Lantus Solostar U-100 Insulin 100 unit/mL (3 mL) insulin pen 30 unit subcut BEDTIME RF: 0 amoxicillin 500 mg capsule 500 mg PO DAILY 30 Days Qty: 30 RF: 3 furosemide 20 mg tablet 20 mg PO DAILY 90 Days Qty: 90 RF: 1 trazodone 50 mg tablet 150 mg PO BEDTIME Qty: 90 RF: 3 Discharge Orders: Discharge Order (Routine); Ordered 01/13/21 Ordered By: Andre Burt Diet: advance to usual diet Activity on Discharge: As tolerated Stand Alone Forms: Patient Portal Discharge page Care Plan Goals: recovery, avoid hospital Health Concerns: debility Plan of Treatment: home pt Assessment: see above
[2021-01-13 12:00] VITALS: BP 134/66; PULSE 63; RESP 16; TEMP 36.5; O2SAT 95
--- NOTE | 2021-01-13 13:34 | MHC.CM.PN ---
NURSE [employer] TEACHER NOTE ELECTRONIC MEDICAL RECORD REVIEWED ALONG WITH CASE DISCUSSED WITH STAFF NURSE AND WITH HOSPITALIST ON MULTIPLE DISCIPLINARY ROUNDS AND BY TEXT AND THEN BY PHONE , PER HOSPITALIST PATIENT IS ALERT ENOUGH TO REFUSE TO GO TO SHORT TERM REHAB, HE DOES NOT FELL THAT SHE IS INCAPACITATED AND CAN BE DISCHARGED HOME WITH HER SON COMING OVER AT TIME FOR SUPERVISION AND MONITORING , PATIENT HAS LIVED IN HER OWN APARTMENT SHE HAS HOER ELECTRIC WHEELCHAIR TO GET AROUND IN HER APARTMENT PHONE CALL, TO PATIENT SONS INFORMING HIM PATIENT WOULD BE DISCHARGED AND WE WILL BE PUTTING IN THE [facility] , HOME PHYSICAL THEAPRY AND [facility] OF [facility] SHE WILL BE TRANSFERRED BY AMBULANCE , HOSPITALIST CALLED TO PATIENT SON AND REPORTED THAT PATIENT WILL BE ABLE TO BE DISCHARGED HOME AND WITH THE ABOVE SERVICES.AND DISCHARGE HOME WITH REFERRAL TO [facility] , HOME PHYSICAL THERAPY AND ,MEDICATION RECONCILIATION AND OCIAL WORKER RESUMPTION OF [facility] HEALTH AIDE AND REQUESTED INCREASE IN SERVICES AND RESUMTPION OF HER MEALS ON WHEELS TRANSOPORITATION ACTION BLS CASE ALSO DISCUSSED WITH SOCIAL WORK HER ON THE SOUTH 3 TEAMS AND STAFF NURSE
== END 2021-01-13 14:11 | disposition home health service (06) | DRG 557 ==
LOC: HO.ED 21:19 → HO.EDOVER 23:18 → HO.S3 23:56
PROVIDERS: Admitting Provider Hospitalist; Emergency Provider Emergency Medicine; PCP Internal Medicine; Visit Provider Internal Medicine
DX: M62.82 Rhabdomyolysis (principal); J96.01 Acute respiratory failure with hypoxia; I50.33 Acute on chronic diastolic (congestive) heart failure; N17.9 Acute kidney failure, unspecified; J98.11 Atelectasis; I48.0 Paroxysmal atrial fibrillation; I11.0 Hypertensive heart disease with heart failure; E86.0 Dehydration; E78.5 Hyperlipidemia, unspecified; E11.9 Type 2 diabetes mellitus without complications; R29.6 Repeated falls; Z91.81 History of falling; Z20.822 Contact with and (suspected) exposure to COVID-19; Z88.0 Allergy status to penicillin; Z79.4 Long term (current) use of insulin; Z79.899 Other long term (current) drug therapy
CPT/HCPCS: 36415; 70450; 71045; 80048; 80076; 81001; 82550; 82803; 82947; 83605; 83690; 83735; 83880; 84484; 85025; 85027; 85610; 85730; 87040; 87635; 93005; 93306; 97162; 99285; J1940; J1956

== ENCOUNTER 2021-03-03 11:02 | Outpatient (REF) | payer MEDICARE, MEDICAID, SELFPAY ==
[2021-03-03 12:27] LABS: Appearance Urine HAZY; Color Urine YELLOW; Glucose Urine UA NEG (NEG); Leukocyte Esterase Urine 3+ (NEG); Nitrite Urine POS (NEG); UACC Culture Trigger YES; Urine Blood NEG (NEG); Urine Ketones NEG (NEG); Urine Protein TRACE MG/DL (NEG-TRACE)
[2021-03-03 12:43] LABS: Bacteria Urine 4+ /LPF; RBC Urine 0 /HPF (0); Squamous Epithelial Cell Urine 3+ /LPF
[2021-03-03 13:32] LABS: Microalbum/Creatinine Ratio Ur 49.6 ug/mg cr
== END 2021-03-03 11:03 | disposition home or self-care (01) ==
LOC: HO.LNP 11:02
PROVIDERS: Visit Provider Internal Medicine
DX: N39.0 Urinary tract infection, site not specified (principal)
CPT/HCPCS: 81001; 81003; 82043; 87086; 87088; 87186

== ENCOUNTER 2021-05-11 08:31 | Outpatient (REF) | payer SELFPAY | END 2021-05-11 08:32 | disposition home or self-care (01) | LOC: HO.HAP 08:31 | PROVIDERS: Visit Provider Internal Medicine | DX: Z13.89 Encounter for screening for other disorder (principal) ==

== ENCOUNTER 2021-07-01 13:15 | Outpatient (REF) | payer MEDICARE, MEDICAID, SELFPAY ==
--- NOTE | 2021-07-01 14:00 | MHC.AU.P13 ---
Hearing Instrument L&D/Problem Date of Visit: 07/01/21 Right Ear: Hyperbaric Nurse: Phonak Model: BOLERO B50-P Serial Number: [id number] Repair Warranty: 07/24/21 Loss and Damage Warranty: 07/24/21 Battery Size: 13 Color: [place] Tubing: #2 SLIM TUBE Type of Dome: MEDIUM CLOSED Dispensed By: [facility] Date of Fittin05/05/2018 Left Ear: Hyperbaric Nurse: Phonak Model: BOLERO B50-P Serial Number: [id number] Repair Warranty: 07/24/21 Loss and Damage Warranty: 07/24/21 Battery Size: 13 Color: [place] Tubing: #2 SLIM TUBE Type of Dome: MEDIUM CLOSED Dispensed By: [facility] Date of Fittin05/05/2018 Follow-Up Summary: Son came in to hand picker left loss and damage replacement and brought other side in to be paired. It was noted that he brought in the left hearing aid #[id number] which was the side they claimed as lost. Called Ave who will reinstate this serial number and put claim in for the right side. Son took original left aid back to patient. Will call when right loss and damage is received and he will bring back left aid so we can pair together. Ave confirmation# [id number] Recommendations: Recommendations: Patient will be contacted when materials have arrived. Diagnosis Code(s): Primary Diagnosis: H90.6 Mixed Hearing Loss, Bilateral Signature: Provider: ALICE Burrell-
== END 2021-07-01 13:16 | disposition home or self-care (01) ==
LOC: HO.HAP 13:15
PROVIDERS: Visit Provider Internal Medicine
DX: Z13.89 Encounter for screening for other disorder (principal)

== ENCOUNTER 2021-07-23 13:14 | Outpatient (REF) | payer MEDICARE, MEDICAID, SELFPAY | END 2021-07-23 13:15 | disposition home or self-care (01) | LOC: HO.HAP 13:14 | PROVIDERS: Visit Provider Internal Medicine | DX: Z13.89 Encounter for screening for other disorder (principal) ==

== ENCOUNTER 2021-08-04 15:14 | Outpatient (REF) | payer MEDICARE, MEDICAID, SELFPAY | END 2021-08-04 15:15 | disposition home or self-care (01) | LOC: HO.HAP 15:14 | PROVIDERS: Visit Provider Internal Medicine | DX: Z46.1 Encounter for fitting and adjustment of hearing aid (principal); H90.6 Mixed conductive and sensorineural hearing loss, bilateral | CPT/HCPCS: V5266 ==

== ENCOUNTER 2021-09-28 15:41 | Inpatient (IN) | payer MEDICARE, MEDICAID, SELFPAY ==
--- NOTE | 2021-09-28 | ECG_ITS ---
Test Reason : ELEVATED TROP Blood Pressure : / mmHG Vent. Rate : 075 BPM Atrial Rate : 075 BPM P-R Int : 154 ms QRS Dur : 092 ms QT Int : 400 ms P-R-T Axes : 091 -22 008 degrees QTc Int : 446 ms Sinus rhythm with occasional Premature ventricular complexes and Premature atrial complexes Minimal voltage criteria for LVH, may be normal variant ( R in aVL ) Borderline ECG When compared with ECG of 28-SEP-2021 16:09, Premature ventricular complexes are now Present Premature atrial complexes are now Present Referred By: Nancy Multani Electronically Signed By:Edison Maddox
--- NOTE | ~2021-09-28 | US_ITS ---
EXAMINATION: US VENOUS ULTRASOUND WITH DOPPLER LOWER EXTREMITY, BILATERAL CLINICAL INFORMATION: Elevated d-dimer. COMPARISON: None TECHNIQUE: Ultrasound of the deep veins is performed from the hip to the calf with compression sonography and color and pulse Doppler assessment. Spectral analysis with color-flow imaging is performed. FINDINGS: Limited exam due to patient holding exams where it in position. Not seen are the peroneal veins or the popliteal veins bilaterally or the right posterior tibial vein. There is normal vascular flow from the groin through the distal thigh and in both legs. No evidence of thrombus of the left posterior tibial vein US/US venous duplex LE BI IMPRESSION: Limited study. There is deep vein thrombosis in the thigh bilaterally.
--- NOTE | ~2021-09-28 | XR_ITS ---
EXAMINATION: XR CHEST CLINICAL INFORMATION: Shortness of breath and weakness COMPARISON: Previous chest x-ray most recent December 2020 TECHNIQUE: Frontal view of the chest was obtained. FINDINGS: The cardiac and mediastinal contours are stable. The lung volumes are low. There are increased central lung markings. There is blunting at the left costophrenic angle questionable for a small left pleural effusion. There is no pneumothorax. There are degenerative changes of the spine. XR/XR chest 1V IMPRESSION: Low lung volumes. Increased central lung markings and question small left pleural effusion. Pulmonary edema or pneumonia should be considered.
--- NOTE | ~2021-09-28 | CT_ITS ---
EXAMINATION: CT HEAD WITHOUT CONTRAST CLINICAL INFORMATION: Found AMS on fluoroscopy. On helical wrist. COMPARISON: None TECHNIQUE: Contiguous axial imaging was performed from the skull base to vertex without intravenous administration of contrast. This CT examination was performed using dose optimization techniques as appropriate, variously including the following: *Automated exposure control *Adjustment of mA and/or kV according to patient size (this includes techniques or standardized protocols for targeted exams where dose is matched to indication/reason for exam; i.e. extremities or head) *Use of iterative reconstruction technique DLP: 723 mGy-cm FINDINGS: There is no evidence of acute intracranial hemorrhage or territorial infarction. No abnormal mass effect or midline shift is seen. Christianson to white matter differentiation is well preserved. No extra-axial fluid collections are identified. The lateral ventricles are asymmetrical in size and mildly enlarged. There is mild periventricular hypodensity in both cerebral hemispheres suggestive of chronic small vessel ischemic changes. The osseous structures and soft tissues are normal. The mastoid air cells and visualized portions of the paranasal sinuses are well aerated. CT/CT head/brain wo con IMPRESSION: No acute intracranial process seen.
--- NOTE | ~2021-09-28 | NM_ITS ---
EXAMINATION: NM LUNG IMAGE PERFUSION CLINICAL INFORMATION: Atrial fibrillation. Elevated d-dimer 2401 pain. COMPARISON: None TECHNIQUE: Following intravenous administration of 4 mCi of 90 9M technetium MAA, images of both lungs were obtained multiple projections. FINDINGS: There is normal perfusion of both lungs without any segmental or subsegmental defects. Ventilation study was not performed. NM/NM pul perfusion IMPRESSION: Normal perfusion study with no defects seen to suspect any PE.
--- NOTE | 2021-09-28 15:57 | ECG_ITS ---
Test Reason : FALL Blood Pressure : / mmHG Vent. Rate : 073 BPM Atrial Rate : 073 BPM P-R Int : 200 ms QRS Dur : 092 ms QT Int : 394 ms P-R-T Axes : 000 -20 022 degrees QTc Int : 434 ms Normal sinus rhythm Minimal voltage criteria for LVH, may be normal variant ( R in aVL ) Septal infarct (cited on or before 09-JAN-2021) Abnormal ECG When compared with ECG of 09-JAN-2021 17:23, Questionable change in initial forces of Septal leads Nonspecific T wave abnormality, improved in Inferior leads T wave inversion no longer evident in Lateral leads Referred By: Nancy Multani Electronically Signed By:Edison Maddox
[2021-09-28 16:04] VITALS: BP 128/70; PULSE 74; RESP 11; TEMP 37.1; O2SAT 94; BMI 35.5
--- NOTE | 2021-09-28 16:06 | ED_ITS ---
HPI - General Adult General Chief complaint: Fall Stated complaint: AMS PER EMS Time Seen by Provider: 09/28/21 15:54 Source: EMS Mode of arrival: EMS Limitations: altered mental status History of Present Illness HPI narrative: Patient comes to the emergency room via EMS from home. According to EMS, the son was unable to provide any significant history, he does not know the patient's medical history per EMS, the son was questionably intoxicated. The patient's son informed EMS that he found his mother sitting on the floor, confused this morning. Patient left the house, 30 minutes later when he returned, she was still on the floor. EMS found the patient is saturating in the high 70/low 80s, patient was placed on a non-rebreather. Patient was found very altered, minimally responsive to sternal rub. It is unclear if the patient fell. Patient unable to provide any history at all Related Data Home Medications Medication Instructions Recorded Confirmed albuterol sulfate 90 mcg/actuation 2 puff INHALATION Q6H PRN 06/18/20 09/10/21 aerosol inhaler Previous Rx's Medication Instructions Recorded Pull ups Extra LArge #120 ea 02/12/21 nystatin 100,000 unit/gram topical 1 appl TOPICAL BID #60 g 03/09/21 powder nystatin 100,000 unit/gram topical 1 appl TOPICAL BID #30 g 03/16/21 ointment amoxicillin 500 mg capsule 500 mg PO DAILY 30 Days #30 cap 04/01/21 metformin 500 mg tablet 500 mg PO BID #180 tab 04/01/21 silver sulfadiazine 1 % topical 1 appl TOPICAL DAILY #25 g 04/30/21 cream (Silvadene) furosemide 20 mg tablet 20 mg PO DAILY 90 Days #90 tab 06/17/21 amlodipine 10 mg tablet 10 mg PO DAILY #90 tab 07/17/21 insulin glargine 100 unit/mL (3 30 unit (0.3 mL) SUBCUT BEDTIME 08/03/21 mL) subcutaneous pen (Lantus #12 ml Solostar U-100 Insulin) pregabalin 100 mg capsule 100 mg PO TID 30 Days #90 cap 08/03/21 dabigatran etexilate 150 mg 150 mg PO BID 90 Days #180 cap 08/17/21 capsule (Pradaxa) simvastatin 10 mg tablet 10 mg PO BEDTIME #90 tab 03/10/22 trazodone 50 mg tablet 150 mg PO BEDTIME 30 Days #90 tab 09/10/21 clonazepam 1 mg tablet 1 mg PO BID 30 Days #60 tab 09/24/21 escitalopram oxalate 10 mg tablet 10 mg PO DAILY 90 Days #90 tab 09/24/21 Allergies Allergy/AdvReac Type Severity Reaction Status Date / Time sulfamethoxazole Allergy Intermediate rash face Verified 09/10/21 14:38 [From Bactrim] trimethoprim [From Bactrim] Allergy Intermediate rash face Verified 09/10/21 14:38 amoxicillin [Augmentin] Allergy Unknown Diarrhea Verified 09/10/21 14:38 clavulanic acid [Augmentin] Allergy Unknown Diarrhea Verified 09/10/21 14:38 Iodinated Contrast Media Allergy Unknown THROAT Verified 09/10/21 14:38 [IV Dye, Iodine Containing CLOSES Contrast ] UP/SWELLIN iodine [IODINE] Allergy Unknown ANAPHYLAXIS Verified 09/10/21 14:38 lisinopril [LISINOPRIL] Allergy Unknown UNKNOWN, Verified 09/10/21 14:38 cough, cough prednisone [PREDNISONE] Allergy Unknown INCREASE Verified 09/10/21 14:38 BLOOD PRESSURE quetiapine [From SEROQUEL] Allergy Unknown SWELLING Verified 09/10/21 14:38 X-ray dye Allergy Unknown Facial Verified 09/10/21 14:38 swelling/ trouble breathing apixaban [From Eliquis] AdvReac Intermediate Diarrhea Verified 09/10/21 14:38 Review of Systems Review of Systems: Yes Unobtainable due to mental condition PMFSH Past Medical History Medical History Afib Hypercholesterolemia Lumbar degenerative disc disease Recurrent UTI Type 2 diabetes mellitus with hyperglycemia Surgical History History of lumpectomy of right breast History of tubal ligation Family History Family History (Updated 09/10/21 @ 14:40 by Katie Mccullough CMA) Father Diabetes Heart disease Mother Heart disease Son Opiate addiction Social History Social History Household Members: None Household Members Other:: Brought to ER by son with whom she lives Housing: Apartment Do you presently have visiting nurse or other home services: Yes Alcohol intake: never Patient Tobacco Use Status: Never used Tobacco e-Cigarette/Vaping Use: Never Used Second Hand Smoke Exposure: No Advance Directives: No Advance Directives Information Provided: No service: No Current occupational status: retired Cognitive needs: Yes (Electric Wheel Chair) Hearing needs: Yes (Earring Aids) Vision needs: Yes (Glasses) Physical Exam ED Vital Signs: Vital Signs - 24 hr 09/28/21 16:04 09/28/21 19:09 09/28/21 20:55 Temperature 98.8 F 99 F 98.6 F Pulse Rate 74 77 Respiratory Rate 11 L 16 Blood Pressure 128/70 156/68 H Pulse Oximetry 94 97 BMI result Body Mass Index 35.5 Const Other: Appearance: Alert. No acute distress, very lethargic, patient opens her eyes when her name is called, nonverbal Eyes: Pinpoint pupils, Pupils equal, round and reactive to light. ENT: Pharynx normal. Neck: Normal inspection. Neck supple. No lymph nodes noted. No crepitus CVS: Normal heart rate and rhythm. Pulses normal. Normal S1 and S2 Respiratory: No respiratory distress. Breath sounds normal. No Wheezing. No rales Abdomen: Soft and nontender. No rigidity. No distention. Skin: Skin warm and dry. Normal skin color. Normal skin turgor. Extremities: No lower extremity edema. No Lacerations. No Rash Neuro: Unable to participate in cranial nerve assessment Psych: calm, very lethargic Course Course Course Narrative: While patient has been in the emergency room, she has gradually become more lethargic . Initially patient was able to open her eyes when her name was called, patient is now not even waking up to sternal rub. Patient's troponin is 3311, baseline is 127. Were trying to get in touch with the patient's son clarify her code status. From previous admission notes from last year 2020, patient was a full code. Unknown if anything has changed the last year. I tried calling the son multiple times but never picked up the phone. I discussed the patient with Dr. Maddox. At this time, we will not start heparin. Instead, cycle troponin again in 2 hours from now. Patient remains altered, barely responsible, only to name. Every so often, patient is awake, patient was asked if she has any chest pain, patient states that she does not have chest pain and feels fine. Then goes back to sleep. Elevated troponin likely secondary to elevated CPK. Patient also has rhabdo, likely the cause of the elevated lactic acid and elevated creatinine. Patient's UTI is slightly positive, patient will be treated with ceftriaxone. Sepsis is not suspected. Blood pressure is stable, not tachycardic, no fever. Troponin 2. Pending. Head CT scan pending V/Q scan negative for pulmonary embolism, head CT negative for acute pathology Patient has a right external jugular IV access on the right side. Patient's son called. Patient's son are finds that patient was found on the floor, he helped her to the bed. The left, when he returned to our center, patient was again on the floor. He estimates that the patient was on the floor for a maximum of 2 hours Patient's urine tox tested positive for opiates, fentanyl and benzodiazepines. I checkd the [facility], pt does not have a rx for opiates I discussed the patient with Dr. Mooney, patient being admitted Medical Decision Making Lab Data Result diagrams: 09/28/21 17:20 09/28/21 17:20 Labs: Lab Results 09/28/21 09/28/21 09/28/21 Range/Units 17:20 17:20 17:20 WBC 15.2 H (4.8-10.8) X10*3/uL RBC 3.81 L (4.20-5.50) X10*6/uL Hgb 11.7 L (12.0-16.0) g/dl Hct 37.0 (37.0-47.0) % MCV 97.1 (80.0-98.0) fL MCH 30.7 (27.0-33.0) pg MCHC 31.6 (31.0-35.0) g/dl RDW 13.7 (11.0-16.0) % Plt Count 266 (160-400) X10*3/uL MPV 9.1 L (9.4-12.3) fL Immature Gran % (Auto) 1.0 H (0.0-0.4) % Neut % (Auto) 88.2 H (45-73) % Lymph % (Auto) 4.3 L (20-40) % [place] % (Auto) 6.4 (2-11) % Eos % (Auto) 0.0 (0-4) % Baso % (Auto) 0.1 (0-2) % Lymph # (Auto) 0.7 L (1.2-4.9) X10*3/uL [place] # (Auto) 1.0 (0.1-1.2) X10*3/uL Eos # (Auto) 0.0 (0.0-0.4) X10*3/uL Baso # (Auto) 0.0 (0.0-0.2) X10*3/uL Abs Immat Gran (auto) 0.15 H (0.00-0.03) X10*3/uL Absolute Neuts (auto) 13.4 H (2.0-8.3) x10*3/uL Absolute Nucleated RBC 0.000 (0.0-0.012) X10*3/uL Nucleated RBC % (auto) 0.0 (0.0-0.2) /100WBC PT (9.9-13.0) SEC INR (0.9-1.1) APTT (24.1-38.0) SEC D-Dimer High Sensitivty NG/ML VBG pH (7.32-7.43) VBG pCO2 mmHg VBG pO2 mmHg VBG HCO3 (22-26) mmol/L VBG O2 Saturation % VBG Base Excess mmol/L Sodium 140 (135-145) mmol/L Potassium 4.6 D (3.3-5.1) mmol/L Chloride 98 (96-108) mmol/L Carbon Dioxide 28 (22-29) mmol/L Anion Gap 19 (12-20) BUN 23 H (9-16) mg/dL Creatinine 1.78 H (0.5-1.4) mg/dL Estim Creat Clear Calc 35.9 Estimated GFR 28 Random Glucose 207 H (60-115) mg/dL Lactic Acid (0.5-2.0) mmol/L Lactic Acid F/U @ 2Hr (0.5-2.0) mmol/L Calcium 8.8 D (8.4-10.2) mg/dL Magnesium 1.9 (1.6-2.6) mg/dL Total Bilirubin 0.2 (0.0-1.0) mg/dL Direct Bilirubin 0.2 (0.0-0.5) mg/dL AST 87 H (5-31) U/L ALT 67 H (0-31) U/L Alkaline Phosphatase 132 H D (39-117) U/L Ammonia (13-55) umol/L Total Creatine Kinase 2414 H D (26-140) U/L Troponin I High Sens 3311.2 H* (<3.5-17.0) ng/L B-Natriuretic Peptide (<100) pg/mL Total Protein 7.9 (6.5-8.0) g/dL Albumin 4.3 (3.5-5.0) g/dL Urine Color Urine Appearance Urine pH (5.0-8.0) Ur Specific [place] (1.005-1.025) Urine Protein (NEG-TRACE) MG/DL Urine Glucose (UA) (NEG) MG/DL Urine Ketones (NEG) MG/DL Urine Blood (NEG) Urine Nitrite (NEG) Ur Leukocyte Esterase (NEG) Urine RBC (0) /HPF Urine WBC (0-4) /HPF Ur Squamous Epith Cells /LPF Urine Bacteria /LPF Urine Opiates Screen (Not Detect) Urine Fentanyl Screen (Not Detect) Ur Barbiturates Screen (Not Detect) Ur Phencyclidine Scrn (Not Detect) Ur Amphetamines Screen (Not Detect) U Benzodiazepines Scrn (Not Detect) Urine Cocaine Screen (Not Detect) U Marijuana (THC) Screen (Not Detect) Ethyl Alcohol mg/dL COVID-19 (ELLEN) (Negative) COVID-19 Clin Com Influenza Type A (ARSEN) (Negative) Influenza Type B (ARSEN) (Negative) Influenza A & B Note 09/28/21 09/28/21 09/28/21 Range/Units 17:20 17:20 17:20 WBC (4.8-10.8) X10*3/uL RBC (4.20-5.50) X10*6/uL Hgb (12.0-16.0) g/dl Hct (37.0-47.0) % MCV (80.0-98.0) fL MCH (27.0-33.0) pg MCHC (31.0-35.0) g/dl RDW (11.0-16.0) % Plt Count (160-400) X10*3/uL MPV (9.4-12.3) fL Immature Gran % (Auto) (0.0-0.4) % Neut % (Auto) (45-73) % Lymph % (Auto) (20-40) % [place] % (Auto) (2-11) % Eos % (Auto) (0-4) % Baso % (Auto) (0-2) % Lymph # (Auto) (1.2-4.9) X10*3/uL [place] # (Auto) (0.1-1.2) X10*3/uL Eos # (Auto) (0.0-0.4) X10*3/uL Baso # (Auto) (0.0-0.2) X10*3/uL Abs Immat Gran (auto) (0.00-0.03) X10*3/uL Absolute Neuts (auto) (2.0-8.3) x10*3/uL Absolute Nucleated RBC (0.0-0.012) X10*3/uL Nucleated RBC % (auto) (0.0-0.2) /100WBC PT (9.9-13.0) SEC INR (0.9-1.1) APTT (24.1-38.0) SEC D-Dimer High Sensitivty NG/ML VBG pH (7.32-7.43) VBG pCO2 mmHg VBG pO2 mmHg VBG HCO3 (22-26) mmol/L VBG O2 Saturation % VBG Base Excess mmol/L Sodium (135-145) mmol/L Potassium (3.3-5.1) mmol/L Chloride (96-108) mmol/L Carbon Dioxide (22-29) mmol/L Anion Gap (12-20) BUN (9-16) mg/dL Creatinine (0.5-1.4) mg/dL Estim Creat Clear Calc Estimated GFR Random Glucose (60-115) mg/dL Lactic Acid 3.2 H* (0.5-2.0) mmol/L Lactic Acid F/U @ 2Hr (0.5-2.0) mmol/L Calcium (8.4-10.2) mg/dL Magnesium (1.6-2.6) mg/dL Total Bilirubin (0.0-1.0) mg/dL Direct Bilirubin (0.0-0.5) mg/dL AST (5-31) U/L ALT (0-31) U/L Alkaline Phosphatase (39-117) U/L Ammonia (13-55) umol/L Total Creatine Kinase (26-140) U/L Troponin I High Sens (<3.5-17.0) ng/L B-Natriuretic Peptide (<100) pg/mL Total Protein (6.5-8.0) g/dL Albumin (3.5-5.0) g/dL Urine Color Urine Appearance Urine pH (5.0-8.0) Ur Specific [place] (1.005-1.025) Urine Protein (NEG-TRACE) MG/DL Urine Glucose (UA) (NEG) MG/DL Urine Ketones (NEG) MG/DL Urine Blood (NEG) Urine Nitrite (NEG) Ur Leukocyte Esterase (NEG) Urine RBC (0) /HPF Urine WBC (0-4) /HPF Ur Squamous Epith Cells /LPF Urine Bacteria /LPF Urine Opiates Screen (Not Detect) Urine Fentanyl Screen (Not Detect) Ur Barbiturates Screen (Not Detect) Ur Phencyclidine Scrn (Not Detect) Ur Amphetamines Screen (Not Detect) U Benzodiazepines Scrn (Not Detect) Urine Cocaine Screen (Not Detect) U Marijuana (THC) Screen (Not Detect) Ethyl Alcohol mg/dL COVID-19 (ELLEN) Negative (Negative) COVID-19 Clin Com See Note Influenza Type A (ARSEN) Negative (Negative) Influenza Type B (ARSEN) Negative (Negative) Influenza A & B Note See Note 09/28/21 09/28/21 09/28/21 Range/Units 17:20 17:20 17:20 WBC (4.8-10.8) X10*3/uL RBC (4.20-5.50) X10*6/uL Hgb (12.0-16.0) g/dl Hct (37.0-47.0) % MCV (80.0-98.0) fL MCH (27.0-33.0) pg MCHC (31.0-35.0) g/dl RDW (11.0-16.0) % Plt Count (160-400) X10*3/uL MPV (9.4-12.3) fL Immature Gran % (Auto) (0.0-0.4) % Neut % (Auto) (45-73) % Lymph % (Auto) (20-40) % [place] % (Auto) (2-11) % Eos % (Auto) (0-4) % Baso % (Auto) (0-2) % Lymph # (Auto) (1.2-4.9) X10*3/uL [place] # (Auto) (0.1-1.2) X10*3/uL Eos # (Auto) (0.0-0.4) X10*3/uL Baso # (Auto) (0.0-0.2) X10*3/uL Abs Immat Gran (auto) (0.00-0.03) X10*3/uL Absolute Neuts (auto) (2.0-8.3) x10*3/uL Absolute Nucleated RBC (0.0-0.012) X10*3/uL Nucleated RBC % (auto) (0.0-0.2) /100WBC PT (9.9-13.0) SEC INR (0.9-1.1) APTT (24.1-38.0) SEC D-Dimer High Sensitivty NG/ML VBG pH (7.32-7.43) VBG pCO2 mmHg VBG pO2 mmHg VBG HCO3 (22-26) mmol/L VBG O2 Saturation % VBG Base Excess mmol/L Sodium (135-145) mmol/L Potassium (3.3-5.1) mmol/L Chloride (96-108) mmol/L Carbon Dioxide (22-29) mmol/L Anion Gap (12-20) BUN (9-16) mg/dL Creatinine (0.5-1.4) mg/dL Estim Creat Clear Calc Estimated GFR Random Glucose (60-115) mg/dL Lactic Acid (0.5-2.0) mmol/L Lactic Acid F/U @ 2Hr (0.5-2.0) mmol/L Calcium (8.4-10.2) mg/dL Magnesium (1.6-2.6) mg/dL Total Bilirubin (0.0-1.0) mg/dL Direct Bilirubin (0.0-0.5) mg/dL AST (5-31) U/L ALT (0-31) U/L Alkaline Phosphatase (39-117) U/L Ammonia 25 (13-55) umol/L Total Creatine Kinase (26-140) U/L Troponin I High Sens (<3.5-17.0) ng/L B-Natriuretic Peptide 511 H (<100) pg/mL Total Protein (6.5-8.0) g/dL Albumin (3.5-5.0) g/dL Urine Color Urine Appearance Urine pH (5.0-8.0) Ur Specific [place] (1.005-1.025) Urine Protein (NEG-TRACE) MG/DL Urine Glucose (UA) (NEG) MG/DL Urine Ketones (NEG) MG/DL Urine Blood (NEG) Urine Nitrite (NEG) Ur Leukocyte Esterase (NEG) Urine RBC (0) /HPF Urine WBC (0-4) /HPF Ur Squamous Epith Cells /LPF Urine Bacteria /LPF Urine Opiates Screen (Not Detect) Urine Fentanyl Screen (Not Detect) Ur Barbiturates Screen (Not Detect) Ur Phencyclidine Scrn (Not Detect) Ur Amphetamines Screen (Not Detect) U Benzodiazepines Scrn (Not Detect) Urine Cocaine Screen (Not Detect) U Marijuana (THC) Screen (Not Detect) Ethyl Alcohol < 10 mg/dL COVID-19 (ELLEN) (Negative) COVID-19 Clin Com Influenza Type A (ARSEN) (Negative) Influenza Type B (ARSEN) (Negative) Influenza A & B Note 09/28/21 09/28/21 09/28/21 Range/Units 17:20 19:05 19:05 WBC (4.8-10.8) X10*3/uL RBC (4.20-5.50) X10*6/uL Hgb (12.0-16.0) g/dl Hct (37.0-47.0) % MCV (80.0-98.0) fL MCH (27.0-33.0) pg MCHC (31.0-35.0) g/dl RDW (11.0-16.0) % Plt Count (160-400) X10*3/uL MPV (9.4-12.3) fL Immature Gran % (Auto) (0.0-0.4) % Neut % (Auto) (45-73) % Lymph % (Auto) (20-40) % [place] % (Auto) (2-11) % Eos % (Auto) (0-4) % Baso % (Auto) (0-2) % Lymph # (Auto) (1.2-4.9) X10*3/uL [place] # (Auto) (0.1-1.2) X10*3/uL Eos # (Auto) (0.0-0.4) X10*3/uL Baso # (Auto) (0.0-0.2) X10*3/uL Abs Immat Gran (auto) (0.00-0.03) X10*3/uL Absolute Neuts (auto) (2.0-8.3) x10*3/uL Absolute Nucleated RBC (0.0-0.012) X10*3/uL Nucleated RBC % (auto) (0.0-0.2) /100WBC PT (9.9-13.0) SEC INR (0.9-1.1) APTT (24.1-38.0) SEC D-Dimer High Sensitivty 2401 NG/ML VBG pH (7.32-7.43) VBG pCO2 mmHg VBG pO2 mmHg VBG HCO3 (22-26) mmol/L VBG O2 Saturation % VBG Base Excess mmol/L Sodium (135-145) mmol/L Potassium (3.3-5.1) mmol/L Chloride (96-108) mmol/L Carbon Dioxide (22-29) mmol/L Anion Gap (12-20) BUN (9-16) mg/dL Creatinine (0.5-1.4) mg/dL Estim Creat Clear Calc Estimated GFR Random Glucose (60-115) mg/dL Lactic Acid (0.5-2.0) mmol/L Lactic Acid F/U @ 2Hr (0.5-2.0) mmol/L Calcium (8.4-10.2) mg/dL Magnesium (1.6-2.6) mg/dL Total Bilirubin (0.0-1.0) mg/dL Direct Bilirubin (0.0-0.5) mg/dL AST (5-31) U/L ALT (0-31) U/L Alkaline Phosphatase (39-117) U/L Ammonia (13-55) umol/L Total Creatine Kinase (26-140) U/L Troponin I High Sens (<3.5-17.0) ng/L B-Natriuretic Peptide (<100) pg/mL Total Protein (6.5-8.0) g/dL Albumin (3.5-5.0) g/dL Urine Color YELLOW Urine Appearance HAZY Urine pH 5.5 (5.0-8.0) Ur Specific [place] >= 1.030 H (1.005-1.025) Urine Protein 1+ H (NEG-TRACE) MG/DL Urine Glucose (UA) NEG (NEG) MG/DL Urine Ketones 5 (NEG) MG/DL Urine Blood 3+ H (NEG) Urine Nitrite NEG (NEG) Ur Leukocyte Esterase 1+ H (NEG) Urine RBC 1-4 (0) /HPF Urine WBC 1-4 (0-4) /HPF Ur Squamous Epith Cells 1+ /LPF Urine Bacteria 2+ /LPF Urine Opiates Screen POSITIVE H (Not Detect) Urine Fentanyl Screen POSITIVE H (Not Detect) Ur Barbiturates Screen Not Detected (Not Detect) Ur Phencyclidine Scrn Not Detected (Not Detect) Ur Amphetamines Screen Not Detected (Not Detect) U Benzodiazepines Scrn POSITIVE H (Not Detect) Urine Cocaine Screen Not Detected (Not Detect) U Marijuana (THC) Screen Not Detected (Not Detect) Ethyl Alcohol mg/dL COVID-19 (ELLEN) (Negative) COVID-19 Clin Com Influenza Type A (ARSEN) (Negative) Influenza Type B (ARSEN) (Negative) Influenza A & B Note 09/28/21 09/28/21 09/28/21 Range/Units 20:24 20:24 20:24 WBC (4.8-10.8) X10*3/uL RBC (4.20-5.50) X10*6/uL Hgb (12.0-16.0) g/dl Hct (37.0-47.0) % MCV (80.0-98.0) fL MCH (27.0-33.0) pg MCHC (31.0-35.0) g/dl RDW (11.0-16.0) % Plt Count (160-400) X10*3/uL MPV (9.4-12.3) fL Immature Gran % (Auto) (0.0-0.4) % Neut % (Auto) (45-73) % Lymph % (Auto) (20-40) % [place] % (Auto) (2-11) % Eos % (Auto) (0-4) % Baso % (Auto) (0-2) % Lymph # (Auto) (1.2-4.9) X10*3/uL [place] # (Auto) (0.1-1.2) X10*3/uL Eos # (Auto) (0.0-0.4) X10*3/uL Baso # (Auto) (0.0-0.2) X10*3/uL Abs Immat Gran (auto) (0.00-0.03) X10*3/uL Absolute Neuts (auto) (2.0-8.3) x10*3/uL Absolute Nucleated RBC (0.0-0.012) X10*3/uL Nucleated RBC % (auto) (0.0-0.2) /100WBC PT 15.6 H (9.9-13.0) SEC INR 1.4 H (0.9-1.1) APTT 63.5 H* (24.1-38.0) SEC D-Dimer High Sensitivty NG/ML VBG pH (7.32-7.43) VBG pCO2 mmHg VBG pO2 mmHg VBG HCO3 (22-26) mmol/L VBG O2 Saturation % VBG Base Excess mmol/L Sodium (135-145) mmol/L Potassium (3.3-5.1) mmol/L Chloride (96-108) mmol/L Carbon Dioxide (22-29) mmol/L Anion Gap (12-20) BUN (9-16) mg/dL Creatinine (0.5-1.4) mg/dL Estim Creat Clear Calc Estimated GFR Random Glucose (60-115) mg/dL Lactic Acid (0.5-2.0) mmol/L Lactic Acid F/U @ 2Hr 2.0 (0.5-2.0) mmol/L Calcium (8.4-10.2) mg/dL Magnesium (1.6-2.6) mg/dL Total Bilirubin (0.0-1.0) mg/dL Direct Bilirubin (0.0-0.5) mg/dL AST (5-31) U/L ALT (0-31) U/L Alkaline Phosphatase (39-117) U/L Ammonia (13-55) umol/L Total Creatine Kinase (26-140) U/L Troponin I High Sens 3251.3 H* (<3.5-17.0) ng/L B-Natriuretic Peptide (<100) pg/mL Total Protein (6.5-8.0) g/dL Albumin (3.5-5.0) g/dL Urine Color Urine Appearance Urine pH (5.0-8.0) Ur Specific [place] (1.005-1.025) Urine Protein (NEG-TRACE) MG/DL Urine Glucose (UA) (NEG) MG/DL Urine Ketones (NEG) MG/DL Urine Blood (NEG) Urine Nitrite (NEG) Ur Leukocyte Esterase (NEG) Urine RBC (0) /HPF Urine WBC (0-4) /HPF Ur Squamous Epith Cells /LPF Urine Bacteria /LPF Urine Opiates Screen (Not Detect) Urine Fentanyl Screen (Not Detect) Ur Barbiturates Screen (Not Detect) Ur Phencyclidine Scrn (Not Detect) Ur Amphetamines Screen (Not Detect) U Benzodiazepines Scrn (Not Detect) Urine Cocaine Screen (Not Detect) U Marijuana (THC) Screen (Not Detect) Ethyl Alcohol mg/dL COVID-19 (ELLEN) (Negative) COVID-19 Clin Com Influenza Type A (ARSEN) (Negative) Influenza Type B (ARSEN) (Negative) Influenza A & B Note 09/28/21 Range/Units 20:29 WBC (4.8-10.8) X10*3/uL RBC (4.20-5.50) X10*6/uL Hgb (12.0-16.0) g/dl Hct (37.0-47.0) % MCV (80.0-98.0) fL MCH (27.0-33.0) pg MCHC (31.0-35.0) g/dl RDW (11.0-16.0) % Plt Count (160-400) X10*3/uL MPV (9.4-12.3) fL Immature Gran % (Auto) (0.0-0.4) % Neut % (Auto) (45-73) % Lymph % (Auto) (20-40) % [place] % (Auto) (2-11) % Eos % (Auto) (0-4) % Baso % (Auto) (0-2) % Lymph # (Auto) (1.2-4.9) X10*3/uL [place] # (Auto) (0.1-1.2) X10*3/uL Eos # (Auto) (0.0-0.4) X10*3/uL Baso # (Auto) (0.0-0.2) X10*3/uL Abs Immat Gran (auto) (0.00-0.03) X10*3/uL Absolute Neuts (auto) (2.0-8.3) x10*3/uL Absolute Nucleated RBC (0.0-0.012) X10*3/uL Nucleated RBC % (auto) (0.0-0.2) /100WBC PT (9.9-13.0) SEC INR (0.9-1.1) APTT (24.1-38.0) SEC D-Dimer High Sensitivty NG/ML VBG pH 7.40 (7.32-7.43) VBG pCO2 37 mmHg VBG pO2 127 mmHg VBG HCO3 23 (22-26) mmol/L VBG O2 Saturation 99.0 % VBG Base Excess -0.7 mmol/L Sodium (135-145) mmol/L Potassium (3.3-5.1) mmol/L Chloride (96-108) mmol/L Carbon Dioxide (22-29) mmol/L Anion Gap (12-20) BUN (9-16) mg/dL Creatinine (0.5-1.4) mg/dL Estim Creat Clear Calc Estimated GFR Random Glucose (60-115) mg/dL Lactic Acid (0.5-2.0) mmol/L Lactic Acid F/U @ 2Hr (0.5-2.0) mmol/L Calcium (8.4-10.2) mg/dL Magnesium (1.6-2.6) mg/dL Total Bilirubin (0.0-1.0) mg/dL Direct Bilirubin (0.0-0.5) mg/dL AST (5-31) U/L ALT (0-31) U/L Alkaline Phosphatase (39-117) U/L Ammonia (13-55) umol/L Total Creatine Kinase (26-140) U/L Troponin I High Sens (<3.5-17.0) ng/L B-Natriuretic Peptide (<100) pg/mL Total Protein (6.5-8.0) g/dL Albumin (3.5-5.0) g/dL Urine Color Urine Appearance Urine pH (5.0-8.0) Ur Specific [place] (1.005-1.025) Urine Protein (NEG-TRACE) MG/DL Urine Glucose (UA) (NEG) MG/DL Urine Ketones (NEG) MG/DL Urine Blood (NEG) Urine Nitrite (NEG) Ur Leukocyte Esterase (NEG) Urine RBC (0) /HPF Urine WBC (0-4) /HPF Ur Squamous Epith Cells /LPF Urine Bacteria /LPF Urine Opiates Screen (Not Detect) Urine Fentanyl Screen (Not Detect) Ur Barbiturates Screen (Not Detect) Ur Phencyclidine Scrn (Not Detect) Ur Amphetamines Screen (Not Detect) U Benzodiazepines Scrn (Not Detect) Urine Cocaine Screen (Not Detect) U Marijuana (THC) Screen (Not Detect) Ethyl Alcohol mg/dL COVID-19 (ELLEN) (Negative) COVID-19 Clin Com Influenza Type A (ARSEN) (Negative) Influenza Type B (ARSEN) (Negative) Influenza A & B Note Critical Care Time Critical Care Time Critical Care Time: Yes Total Critical Care Time: 60 Attestation: I have personally provided critical care time. Time includes review of lab data, radiology results, discussion with consultants, and monitoring for potential de compensation. Intervention performed as documented. Discharge Plan Discharge Clinical Impression: Acute alteration in mental status, Acute kidney injury, Elevated troponin, Accidental drug overdose, Rhabdomyolysis Prescriptions: No Action albuterol sulfate 90 mcg/actuation HFA aerosol inhaler 2 puff inhalation Q6H PRN (Reason: Shortness Of Breath Or Wheezing) 0RF nystatin 100,000 unit/gram powder 1 appl topical BID Qty: 60 0RF nystatin 100,000 unit/gram ointment 1 appl topical BID Qty: 30 0RF metformin 500 mg tablet 500 mg PO BID Qty: 180 2RF amoxicillin 500 mg capsule 500 mg PO DAILY 30 Days Qty: 30 3RF silver sulfadiazine [Silvadene] 1 % cream 1 appl topical DAILY Qty: 25 0RF Rx Instructions: apply a 1.5 mm thickness furosemide 20 mg tablet 20 mg PO DAILY 90 Days Qty: 90 1RF amlodipine 10 mg tablet 10 mg PO DAILY Qty: 90 0RF Lantus Solostar U-100 Insulin 100 unit/mL (3 mL) insulin pen 30 unit subcut BEDTIME Qty: 12 0RF pregabalin 100 mg capsule 100 mg PO TID 30 Days Qty: 90 3RF Pradaxa 150 mg capsule 150 mg PO BID 90 Days Qty: 180 1RF simvastatin 10 mg tablet 10 mg PO BEDTIME Qty: 90 3RF clonazepam 1 mg tablet 1 mg PO BID 30 Days Qty: 60 0RF escitalopram oxalate 10 mg tablet 10 mg PO DAILY 90 Days Qty: 90 0RF (DME) Pull ups Extra LArge See Rx Instructions .Route .MEDSUPPLY Qty: 120 11RF Rx Instructions: As directed trazodone 50 mg tablet 150 mg PO BEDTIME 30 Days Qty: 90 2RF
[2021-09-28 17:29] LABS: MANUAL DIFF FLAG NO
[2021-09-28 17:31] LABS: Basophils Percent Auto 0.1 % (0-2); Hemoglobin 11.7 g/dl (12.0-16.0); Imm Gran Abs Auto 0.15 X10*3/uL (0.00-0.03); Lymphocytes Absolute Auto 0.7 X10*3/uL (1.2-4.9); Lymphocytes Percent Auto 4.3 % (20-40); Mean Corpuscular HGB Conc 31.6 g/dl (31.0-35.0); Mean Corpuscular Hemoglobin 30.7 pg (27.0-33.0); Mean Corpuscular Volume 97.1 fL (80.0-98.0); Mean Platelet Volume 9.1 fL (9.4-12.3); Monocytes Percent Auto 6.4 % (2-11); Neutrophils Absolute Auto 13.4 x10*3/uL (2.0-8.3); Neutrophils Percent Auto 88.2 % (45-73); Platelet Count 266 X10*3/uL (160-400); Red Blood Count 3.81 X10*6/uL (4.20-5.50); Red Cell Distribution Width 13.7 % (11.0-16.0); White Blood Count 15.2 X10*3/uL (4.8-10.8)
[2021-09-28 17:38] LABS: D Dimer High Sensitivity 2401 NG/ML
[2021-09-28 17:48] LABS: COVID-19 Test Negative (Negative); IDNOW Serial# 16C4AD1C; Influenza A Negative (Negative); Influenza B2 Negative (Negative)
[2021-09-28 17:58] LABS: Ammonia 25 umol/L (13-55); Ethanol < 10 mg/dL
[2021-09-28 17:59] LABS: Lactic Acid 3.2 mmol/L (0.5-2.0)
[2021-09-28 18:00] LABS: Alanine Aminotransferase 67 U/L (0-31); Albumin Level 4.3 g/dL (3.5-5.0); Alkaline Phosphatase 132 U/L (39-117); Anion Gap 19 (12-20); Aspartate Amino Transferase 87 U/L (5-31); Bilirubin Direct 0.2 mg/dL (0.0-0.5); Bilirubin Total 0.2 mg/dL (0.0-1.0); Blood Urea Nitrogen 23 mg/dL (9-16); Calcium 8.8 mg/dL (8.4-10.2); Carbon Dioxide 28 mmol/L (22-29); Chloride 98 mmol/L (96-108); Creatinine Clr Calc Pharmacy 35.9; Estimated Glomerular Filt Rate 28; Glucose Random 207 mg/dL (60-115); Magnesium 1.9 mg/dL (1.6-2.6); Potassium 4.6 mmol/L (3.3-5.1); Sodium 140 mmol/L (135-145); Total Protein 7.9 g/dL (6.5-8.0)
[2021-09-28 18:04] LABS: B Type Natriuretic Peptide 511 pg/mL (<100)
[2021-09-28 18:07] LABS: Troponin-I High Sensitivity 3311.2 ng/L (<3.5-17.0)
--- NOTE | 2021-09-28 18:24 | PC.NURSE ---
multiple attempts made to contact son, who lives with pt, no answer
[2021-09-28 19:09] VITALS: TEMP 37.2
[2021-09-28 19:15] LABS: Appearance Urine HAZY; Color Urine YELLOW; Glucose Urine UA NEG (NEG); Leukocyte Esterase Urine 1+ (NEG); Nitrite Urine NEG (NEG); PH 5.5 (5.0-8.0); Specific Gravity - Urine >= 1.030 (1.005-1.025); UACC Culture Trigger YES; Urine Blood 3+ (NEG); Urine Ketones 5 MG/DL (NEG); Urine Protein 1+ MG/DL (NEG-TRACE)
[2021-09-28 19:21] LABS: Bacteria Urine 2+ /LPF; Squamous Epithelial Cell Urine 1+ /LPF
[2021-09-28 19:28] LABS: Reflex Lactate? Lactic Acid Added
[2021-09-28 19:30] LABS: Amphetamine Screen Urine Not Detected (Not Detect); Barbiturates, Urine Not Detected (Not Detect); Benzodiazepines Screen Urine POSITIVE (Not Detect); Cannabinoid Screen Urine Not Detected (Not Detect); Cocaine Screen Urine Not Detected (Not Detect); Fentanyl, urine POSITIVE (Not Detect); Opiate Screen Urine POSITIVE (Not Detect); Phencyclidine Screen Urine Not Detected (Not Detect)
--- NOTE | 2021-09-28 20:33 | PC.NURSE ---
pt back from nuclear medication, Iv placed by provider. medicate per Mar
[2021-09-28 20:36] LABS: VBG Base Excess -0.7 mmol/L; VBG HCO3 23 mmol/L (22-26); VBG pCO2 37 mmHg; VBG pO2 127 mmHg
[2021-09-28 20:37] LABS: INTERNATIONAL NORM RATIO 1.4 (0.9-1.1); Prothrombin Time 15.6 SEC (9.9-13.0)
[2021-09-28 20:39] LABS: Venous Blood Gas Refer to POC result
[2021-09-28 20:44] LABS: Partial Thromboplastin Time 63.5 SEC (24.1-38.0)
[2021-09-28] MEDS: 0.9 % Sodium Chloride 1,000 ML 999 ML IVCONT (20:49)
[2021-09-28] MEDS: Lidocaine HCl 2 % MPF 5 ML VIAL INFILTRATI (20:50)
--- NOTE | 2021-09-28 20:51 | PC.NURSE ---
pt reposition for comfort and alex care. medicated per Mar.
[2021-09-28 20:55] VITALS: BP 156/68; PULSE 77; RESP 16; TEMP 37; O2SAT 97
[2021-09-28 21:03] LABS: Troponin-I High Sensitivity 3251.3 ng/L (<3.5-17.0)
[2021-09-28 21:26] VITALS: BP 141/55; PULSE 72; RESP 16; TEMP 37.1; O2SAT 98
--- NOTE | 2021-09-28 21:29 | PM.IMHP ---
History of Present Illness Date of Service: 09/28/21 Chief Complaint: Unresponsive episode 76-year-old female with a past medical history of hypertension, hyperlipidemia, diabetes, CAD, diastolic CHF, AFib on Pradaxa, osteoarthritis, history of breast cancer, anxiety, depression, degenerative spine disease-chronic back pain, asthma presented to the hospital today with a chief complaint of unresponsive episode. Patient is currently drowsy follows simple commands and falls back to sleep. Spoke to the patient's son over the phone-mentions that when he found her she was sleeping on the bed 2 hours later he came back to the house to check on her and she was found on the floor; not responding to home in subsequently called EMS and sent to the ER for further evaluation. Patient's son also mentioned that patient was doing completely fine yesterday. He is not unclear if the patient took an extra dose of Klonopin tablets; also unclear if she has taken any illicit drugs. Mentions that she has similar presentations in the past when she has urinary tract infection. Denies patient having any fevers, denies patient complaining of any stomach pain abdominal pain chest pain before. Mentions that when the EMS came in POC glucose was noted to be in 150s. Denies patient having any seizures. Review of all other systems is negative except mentioned above ER course: Per ER team patient noted to be altered and drowsy; also complained of shortness of breath; patient denied any chest pain to the ER team. EKG was nonischemic. Troponin elevated to 33 0s; cardiology was notified who mentioned that elevated troponin likely related to rhabdomyolysis. Patient's CPK was noted to be 2400. Patient also noted to be in ANABELL with creatinine of 1.7 from baseline of 0.7. Patient was given IV fluids. Urinalysis was abnormal consistent with UTI-given ceftriaxone; CT head showed no acute findings; patient D-dimer was elevated to 2400-V/Q scan was done which showed no evidence of pulmonary embolism. Admitted to the hospital for further management. FORMERLY [facility] Medical History Afib Hypercholesterolemia Lumbar degenerative disc disease Recurrent UTI Type 2 diabetes mellitus with hyperglycemia Family History (Updated 09/10/21 @ 14:40 by Katie Mccullough CMA) Father Diabetes Heart disease Mother Heart disease Son Opiate addiction Surgical History History of lumpectomy of right breast History of tubal ligation Social History Household Members: None Household Members Other:: Brought to ER by son with whom she lives Housing: Apartment Do you presently have visiting nurse or other home services: Yes Alcohol intake: never Patient Tobacco Use Status: Never used Tobacco e-Cigarette/Vaping Use: Never Used Second Hand Smoke Exposure: No Advance Directives: No Advance Directives Information Provided: No service: No Current occupational status: retired Cognitive needs: Yes (Electric Wheel Chair) Hearing needs: Yes (Earring Aids) Vision needs: Yes (Glasses) Meds Allergies Allergy/AdvReac Type Severity Reaction Status Date / Time sulfamethoxazole Allergy Intermediate rash face Verified 09/10/21 14:38 [From Bactrim] trimethoprim [From Bactrim] Allergy Intermediate rash face Verified 09/10/21 14:38 amoxicillin [Augmentin] Allergy Unknown Diarrhea Verified 09/10/21 14:38 clavulanic acid [Augmentin] Allergy Unknown Diarrhea Verified 09/10/21 14:38 Iodinated Contrast Media Allergy Unknown THROAT Verified 09/10/21 14:38 [IV Dye, Iodine Containing CLOSES Contrast ] UP/SWELLIN iodine [IODINE] Allergy Unknown ANAPHYLAXIS Verified 09/10/21 14:38 lisinopril [LISINOPRIL] Allergy Unknown UNKNOWN, Verified 09/10/21 14:38 cough, cough prednisone [PREDNISONE] Allergy Unknown INCREASE Verified 09/10/21 14:38 BLOOD PRESSURE quetiapine [From SEROQUEL] Allergy Unknown SWELLING Verified 09/10/21 14:38 X-ray dye Allergy Unknown Facial Verified 09/10/21 14:38 swelling/ trouble breathing apixaban [From Eliquis] AdvReac Intermediate Diarrhea Verified 09/10/21 14:38 Active Medications: Current Medications Pharmacy Consult (Consult Rx Perform Med Rec) 1 each MISCELLANE ONCE PRN PRN Reason: Consult order Home Medications Medication Instructions Recorded Confirmed Last Taken Type albuterol sulfate 90 mcg/actuation 2 puff INHALATION Q6H PRN 06/18/20 09/10/21 Unknown History aerosol inhaler Physical Exam Vital Signs and Narrative: Vital Signs: Last Vital Signs Temp 98.6 F 09/28/21 20:55 Pulse 77 09/28/21 20:55 Resp 16 09/28/21 20:55 BP 156/68 H 09/28/21 20:55 Pulse Ox 97 09/28/21 20:55 Oxygen Flow Rate 5 09/28/21 16:04 BMI result Body Mass Index 35.5 Gen: Appears be in no acute distress HEENT: NCAT, Moist mucosa. Pulmonary: Coarse breath sounds CVS: Normal S1-S2 Abdomen: BS+, Soft, Nontender Extremities: Warm well perfused Neuro: Drowsy. Moves all extremities equally Results Labs CBC and Chem 7: 09/28/21 17:20 09/28/21 17:20 Labs: Laboratory Results - last 24 hr 09/28/21 09/28/21 09/28/21 17:20 17:20 17:20 MCV 97.1 MCH 30.7 MCHC 31.6 RDW 13.7 Plt Count 266 MPV 9.1 L Immature Gran % (Auto) 1.0 H Neut % (Auto) 88.2 H Lymph % (Auto) 4.3 L Bond % (Auto) 6.4 Eos % (Auto) 0.0 Baso % (Auto) 0.1 Lymph # (Auto) 0.7 L Bond # (Auto) 1.0 Eos # (Auto) 0.0 Baso # (Auto) 0.0 Abs Immat Gran (auto) 0.15 H Absolute Neuts (auto) 13.4 H Absolute Nucleated RBC 0.000 Nucleated RBC % (auto) 0.0 PT INR APTT D-Dimer High Sensitivty VBG pH VBG pCO2 VBG pO2 VBG HCO3 VBG O2 Saturation VBG Base Excess Anion Gap 19 Estim Creat Clear Calc 35.9 Estimated GFR 28 Random Glucose 207 H Lactic Acid Lactic Acid F/U @ 2Hr Calcium 8.8 D Magnesium 1.9 Total Bilirubin 0.2 Direct Bilirubin 0.2 AST 87 H ALT 67 H Alkaline Phosphatase 132 H D Ammonia Total Creatine Kinase 2414 H D Troponin I High Sens 3311.2 H* B-Natriuretic Peptide Total Protein 7.9 Albumin 4.3 Urine Color Urine Appearance Urine pH Ur Specific [place] Urine Protein Urine Glucose (UA) Urine Ketones Urine Blood Urine Nitrite Ur Leukocyte Esterase Urine RBC Urine WBC Ur Squamous Epith Cells Urine Bacteria Urine Opiates Screen Urine Fentanyl Screen Ur Barbiturates Screen Ur Phencyclidine Scrn Ur Amphetamines Screen U Benzodiazepines Scrn Urine Cocaine Screen U Marijuana (THC) Screen Ethyl Alcohol COVID-19 (ELLEN) COVID-19 Clin Com Influenza Type A (ARSEN) Influenza Type B (ARSEN) Influenza A & B Note 09/28/21 09/28/21 09/28/21 17:20 17:20 17:20 MCV MCH MCHC RDW Plt Count MPV Immature Gran % (Auto) Neut % (Auto) Lymph % (Auto) Bond % (Auto) Eos % (Auto) Baso % (Auto) Lymph # (Auto) Bond # (Auto) Eos # (Auto) Baso # (Auto) Abs Immat Gran (auto) Absolute Neuts (auto) Absolute Nucleated RBC Nucleated RBC % (auto) PT INR APTT D-Dimer High Sensitivty VBG pH VBG pCO2 VBG pO2 VBG HCO3 VBG O2 Saturation VBG Base Excess Anion Gap Estim Creat Clear Calc Estimated GFR Random Glucose Lactic Acid 3.2 H* Lactic Acid F/U @ 2Hr Calcium Magnesium Total Bilirubin Direct Bilirubin AST ALT Alkaline Phosphatase Ammonia Total Creatine Kinase Troponin I High Sens B-Natriuretic Peptide Total Protein Albumin Urine Color Urine Appearance Urine pH Ur Specific [place] Urine Protein Urine Glucose (UA) Urine Ketones Urine Blood Urine Nitrite Ur Leukocyte Esterase Urine RBC Urine WBC Ur Squamous Epith Cells Urine Bacteria Urine Opiates Screen Urine Fentanyl Screen Ur Barbiturates Screen Ur Phencyclidine Scrn Ur Amphetamines Screen U Benzodiazepines Scrn Urine Cocaine Screen U Marijuana (THC) Screen Ethyl Alcohol COVID-19 (ELELN) Negative COVID-19 Clin Com See Note Influenza Type A (ARSEN) Negative Influenza Type B (ARSEN) Negative Influenza A & B Note See Note 09/28/21 09/28/21 09/28/21 17:20 17:20 17:20 MCV MCH MCHC RDW Plt Count MPV Immature Gran % (Auto) Neut % (Auto) Lymph % (Auto) Bond % (Auto) Eos % (Auto) Baso % (Auto) Lymph # (Auto) Bond # (Auto) Eos # (Auto) Baso # (Auto) Abs Immat Gran (auto) Absolute Neuts (auto) Absolute Nucleated RBC Nucleated RBC % (auto) PT INR APTT D-Dimer High Sensitivty VBG pH VBG pCO2 VBG pO2 VBG HCO3 VBG O2 Saturation VBG Base Excess Anion Gap Estim Creat Clear Calc Estimated GFR Random Glucose Lactic Acid Lactic Acid F/U @ 2Hr Calcium Magnesium Total Bilirubin Direct Bilirubin AST ALT Alkaline Phosphatase Ammonia 25 Total Creatine Kinase Troponin I High Sens B-Natriuretic Peptide 511 H Total Protein Albumin Urine Color Urine Appearance Urine pH Ur Specific [place] Urine Protein Urine Glucose (UA) Urine Ketones Urine Blood Urine Nitrite Ur Leukocyte Esterase Urine RBC Urine WBC Ur Squamous Epith Cells Urine Bacteria Urine Opiates Screen Urine Fentanyl Screen Ur Barbiturates Screen Ur Phencyclidine Scrn Ur Amphetamines Screen U Benzodiazepines Scrn Urine Cocaine Screen U Marijuana (THC) Screen Ethyl Alcohol < 10 COVID-19 (ELLEN) COVID-19 Clin Com Influenza Type A (ARSEN) Influenza Type B (ARSEN) Influenza A & B Note 09/28/21 09/28/21 09/28/21 17:20 19:05 19:05 MCV MCH MCHC RDW Plt Count MPV Immature Gran % (Auto) Neut % (Auto) Lymph % (Auto) Bond % (Auto) Eos % (Auto) Baso % (Auto) Lymph # (Auto) Bond # (Auto) Eos # (Auto) Baso # (Auto) Abs Immat Gran (auto) Absolute Neuts (auto) Absolute Nucleated RBC Nucleated RBC % (auto) PT INR APTT D-Dimer High Sensitivty 2401 VBG pH VBG pCO2 VBG pO2 VBG HCO3 VBG O2 Saturation VBG Base Excess Anion Gap Estim Creat Clear Calc Estimated GFR Random Glucose Lactic Acid Lactic Acid F/U @ 2Hr Calcium Magnesium Total Bilirubin Direct Bilirubin AST ALT Alkaline Phosphatase Ammonia Total Creatine Kinase Troponin I High Sens B-Natriuretic Peptide Total Protein Albumin Urine Color YELLOW Urine Appearance HAZY Urine pH 5.5 Ur Specific [place] >= 1.030 H Urine Protein 1+ H Urine Glucose (UA) NEG Urine Ketones 5 Urine Blood 3+ H Urine Nitrite NEG Ur Leukocyte Esterase 1+ H Urine RBC 1-4 Urine WBC 1-4 Ur Squamous Epith Cells 1+ Urine Bacteria 2+ Urine Opiates Screen POSITIVE H Urine Fentanyl Screen POSITIVE H Ur Barbiturates Screen Not Detected Ur Phencyclidine Scrn Not Detected Ur Amphetamines Screen Not Detected U Benzodiazepines Scrn POSITIVE H Urine Cocaine Screen Not Detected U Marijuana (THC) Screen Not Detected Ethyl Alcohol COVID-19 (ELLEN) COVID-19 Clin Com Influenza Type A (ARSEN) Influenza Type B (ARSEN) Influenza A & B Note 09/28/21 09/28/21 09/28/21 20:24 20:24 20:24 MCV MCH MCHC RDW Plt Count MPV Immature Gran % (Auto) Neut % (Auto) Lymph % (Auto) Bond % (Auto) Eos % (Auto) Baso % (Auto) Lymph # (Auto) Bond # (Auto) Eos # (Auto) Baso # (Auto) Abs Immat Gran (auto) Absolute Neuts (auto) Absolute Nucleated RBC Nucleated RBC % (auto) PT 15.6 H INR 1.4 H APTT 63.5 H* D-Dimer High Sensitivty VBG pH VBG pCO2 VBG pO2 VBG HCO3 VBG O2 Saturation VBG Base Excess Anion Gap Estim Creat Clear Calc Estimated GFR Random Glucose Lactic Acid Lactic Acid F/U @ 2Hr 2.0 Calcium Magnesium Total Bilirubin Direct Bilirubin AST ALT Alkaline Phosphatase Ammonia Total Creatine Kinase Troponin I High Sens 3251.3 H* B-Natriuretic Peptide Total Protein Albumin Urine Color Urine Appearance Urine pH Ur Specific [place] Urine Protein Urine Glucose (UA) Urine Ketones Urine Blood Urine Nitrite Ur Leukocyte Esterase Urine RBC Urine WBC Ur Squamous Epith Cells Urine Bacteria Urine Opiates Screen Urine Fentanyl Screen Ur Barbiturates Screen Ur Phencyclidine Scrn Ur Amphetamines Screen U Benzodiazepines Scrn Urine Cocaine Screen U Marijuana (THC) Screen Ethyl Alcohol COVID-19 (ELLEN) COVID-19 Clin Com Influenza Type A (ARSEN) Influenza Type B (ARSEN) Influenza A & B Note 09/28/21 20:29 MCV MCH MCHC RDW Plt Count MPV Immature Gran % (Auto) Neut % (Auto) Lymph % (Auto) Bond % (Auto) Eos % (Auto) Baso % (Auto) Lymph # (Auto) Bond # (Auto) Eos # (Auto) Baso # (Auto) Abs Immat Gran (auto) Absolute Neuts (auto) Absolute Nucleated RBC Nucleated RBC % (auto) PT INR APTT D-Dimer High Sensitivty VBG pH 7.40 VBG pCO2 37 VBG pO2 127 VBG HCO3 23 VBG O2 Saturation 99.0 VBG Base Excess -0.7 Anion Gap Estim Creat Clear Calc Estimated GFR Random Glucose Lactic Acid Lactic Acid F/U @ 2Hr Calcium Magnesium Total Bilirubin Direct Bilirubin AST ALT Alkaline Phosphatase Ammonia Total Creatine Kinase Troponin I High Sens B-Natriuretic Peptide Total Protein Albumin Urine Color Urine Appearance Urine pH Ur Specific [place] Urine Protein Urine Glucose (UA) Urine Ketones Urine Blood Urine Nitrite Ur Leukocyte Esterase Urine RBC Urine WBC Ur Squamous Epith Cells Urine Bacteria Urine Opiates Screen Urine Fentanyl Screen Ur Barbiturates Screen Ur Phencyclidine Scrn Ur Amphetamines Screen U Benzodiazepines Scrn Urine Cocaine Screen U Marijuana (THC) Screen Ethyl Alcohol COVID-19 (ELLEN) COVID-19 Clin Com Influenza Type A (ARSEN) Influenza Type B (ARSEN) Influenza A & B Note Imaging Radiologist's Impressions: Impressions Chest X-Ray 09/28/21 16:24 IMPRESSION: Low lung volumes. Increased central lung markings and question small left pleural effusion. Pulmonary edema or pneumonia should be considered. Head CT 09/28/21 18:06 IMPRESSION: No acute intracranial process seen. Pulmonary Perfusion Imaging 09/28/21 19:45 IMPRESSION: Normal perfusion study with no defects seen to suspect any PE. Assessment and Plan Plan 76-year-old female with a past medical history of hypertension, hyperlipidemia, diabetes, CAD, diastolic CHF, AFib on Pradaxa, osteoarthritis, history of breast cancer, anxiety, depression, degenerative spine disease-chronic back pain, asthma presented to the hospital today with a chief complaint of unresponsive episode. Noted to have following conditions Unresponsive episode: CT head showed no acute findings. ?opiate overdose. U tox for it is due for opiate, fentanyl, benzos. Per patient's son, he does not know if pt took extra clonazepam. requested to count her pill botlle and let us know. Mental status improving but still drowsy; responds to simple worker commands but falls back to sleep. Monitor on telemetry ANABELL: Likely prerenal versus ATN secondary to rhabdo. Gentle IV fluids. Nephrology consult Rhabdomyolysis: Continue IV fluids. Monitor CPK levels. Mild transaminitis: Likely secondary to rhabdomyolysis. Monitor liver enzymes. Will also obtain acute hepatitis panel. Elevated troponins: EKG nonischemic. pt denies chest pain. Cardiology Dr. Maddox was notified-presumed to be in the setting of elevated CPK versus demand versus reduced clearance from renal insufficiency. Patient already anticoagulated with Pradaxa. Follow-up troponin plateaued: [id number]. Echocardiogram UTI: c/w ceftriaxone empirically. f/u cultures. History of a diastolic CHF: Patient is being given gentle IV fluids for rhabdomyolysis. Monitor for signs of fluid overload. Hold home Lasix for now. History of paroxysmal AFib: Patient on Pradaxa. History of depression: Continue home escitalopram History of anxiety: Will resume Klonopin from tomorrow if pt is more alert and awake. History of diabetes: Patient on Lantus 30 units metformin at home--Hold now. Will keep the patient on insulin sliding scale. Monitor fingerstick glucose and adjust as needed. History of Hyperlipidemia: Hold Statin for now DVT prophylaxis: Patient on Pradaxa Code status: Full code. Confirmed with the patient's son Yonis [facility] Stroke Does the patient have a stroke diagnosis?: No VTE Prior VTE?: No VTE Risk Level:: Medical - moderate - high VTE Device Contraindication: Treatment Not Indicated VTE Drug Contraindication: N/A - Med Ordered
--- NOTE | 2021-09-28 21:38 | PHA.MEDREC ---
Pharmacy Consult ? Medication Reconciliation Pharmacy has completed the medication reconciliation. Patient unable to verify medication, completed by claim history, let provider know, unable to obtain insulin dose fomr pt
[2021-09-28] MEDS: Dextrose 5 % and 0.9 % NaCl 1,000 ML 100 ML IVCONT (22:55)
[2021-09-29] VITALS (7 sets, daily range): BP systolic 135–161; BP diastolic 56–65; PULSE 77–86; RESP 10–20; TEMP 36.6–37.4; O2SAT 94–98
--- NOTE | 2021-09-29 02:20 | PC.NURSE ---
Patient transferred to overflow bed 2. Patient responds to name, opens eyes, and falls back to sleep. IV access to RIJ with D5NS @ 100 running, vss, on 5 liters via n/c. 3+ edema to bilateral lower legs/ankles. Patient repositioned and checked for incontinence. call torres within reach.
[2021-09-29 05:50] LABS: MANUAL DIFF FLAG NO
[2021-09-29 05:54] LABS: Basophils Percent Auto 0.2 % (0-2); Hematocrit 34.1 % (37.0-47.0); Hemoglobin 10.5 g/dl (12.0-16.0); Imm Gran Abs Auto 0.09 X10*3/uL (0.00-0.03); Imm Gran Pct Auto 0.7 % (0.0-0.4); Lymphocytes Absolute Auto 0.8 X10*3/uL (1.2-4.9); Lymphocytes Percent Auto 5.9 % (20-40); Mean Corpuscular HGB Conc 30.8 g/dl (31.0-35.0); Mean Corpuscular Hemoglobin 30.5 pg (27.0-33.0); Mean Corpuscular Volume 99.1 fL (80.0-98.0); Mean Platelet Volume 9.4 fL (9.4-12.3); Monocytes Absolute Auto 1.1 X10*3/uL (0.1-1.2); Monocytes Percent Auto 8.2 % (2-11); NRBC Pct Auto 0.2 /100WBC (0.0-0.2); Neutrophils Absolute Auto 10.9 x10*3/uL (2.0-8.3); Platelet Count 223 X10*3/uL (160-400); Red Blood Count 3.44 X10*6/uL (4.20-5.50); White Blood Count 12.8 X10*3/uL (4.8-10.8)
[2021-09-29 06:19] LABS: Anion Gap 13 (12-20); Blood Urea Nitrogen 22 mg/dL (9-16); Calcium 7.9 mg/dL (8.4-10.2); Carbon Dioxide 30 mmol/L (22-29); Chloride 102 mmol/L (96-108); Creatinine Clr Calc Pharmacy 59.2; Estimated Glomerular Filt Rate 49; Glucose Random 240 mg/dL (60-115); Potassium 4.5 mmol/L (3.3-5.1); Sodium 140 mmol/L (135-145)
[2021-09-29 06:39] LABS: HBsAGNum1 0.15 S/CO (0.00-0.99); Hepatitis B Surface Antigen Negative (Negative)
[2021-09-29 06:42] LABS: HBS Num1 1.32 mIU/mL (0-7.99); Hepatitis B Core Antibody Nonreactive (Nonreactive); ~HepC Num1 0.52 S/CO (0.00-0.79); ~Hepatitis B Surface Antibody NONREACTIVE (Nonreactive); ~Hepatitis C Antibody Nonreactive (Nonreactive)
[2021-09-29 07:28] LABS: Glucose, Whole Blood 224 mg/dL (60-115)
--- NOTE | 2021-09-29 07:30 | CA_ITS ---
Transthoracic Echocardiogram Patient (Last, First, Middle): Amarilys Badillo M Gender: Female Date of : 1945 Age: 76 Procedure Date: 09/29/2021 Procedure Type: Transthoracic Echocardiogram Location: [facility] Height: 175.26 cm Weight: 108.86 kg BSA: 2.23 m2 Heart Rate: bpm BP: 137 / 59 mmHg Upward Bound Director: [place] Referring MD: Ander Mooney MD Symptoms: elevated troponins Study Quality: Fair ECG Rhythm: Sinus Conclusions: - Normal left ventricular size and systolic function. There is mildly increased left ventricular wall thickness. The visually estimated ejection fraction is between 55-60%. - Normal right ventricular cavity size and systolic function. Findings Left Ventricle Normal left ventricular size and systolic function. There is mildly increased left ventricular wall thickness. The visually estimated ejection fraction is between 55-60%. There is no evidence of regional wall motion abnormalities. Abnormal diastolic function is noted. Spectral Doppler is indicative of a pseudonormal filling pattern. E/E prime ratio is between 8 and 15 consistent with indeterminate filling pressures. Right Ventricle Normal right ventricular cavity size and systolic function. Atria The left atrium is severely dilated. Aortic Valve The aortic valve was not well visualized. There is no aortic valve stenosis. There is no aortic valve regurgitation. Mitral Valve There is moderate mitral annular calcification. There is trace mitral valve regurgitation. There is no mitral valve stenosis. Pulmonic Valve The pulmonic valve is likely normal. Tricuspid Valve Normal tricuspid valve structure. There is trace tricuspid valve regurgitation. Significantly elevated right atrial pressure. Mild pulmonary hypertension is present. Great Vessels All visible segments of the aorta are normal in size. Venous The inferior vena cava is dilated and collapses less than 50% with inspiration. Pericardium/Pleural There is no evidence of pericardial effusion. Prior Study Comparison No significant change compared to prior study. Measurements 2D Linear Measurements IVSd: 1.04 0.6-0.9/0.6-1.0 cm LVIDd: 4.58 3.9-5.3/4.2-5.9 cm LVIDd Index: 2.05 2.4-3.2/2.2-3.1 cm/m2 LVIDs: 3.10 2.0-3.6 cm LVPWd: 1.15 0.7-1.1 cm LA Diam: 4.10 2.7-3.8/3.0-4.0 cm LAIDs Index: 1.84 1.5-2.3 cm/m2 LV Mass: 222.79 67-162/88-224 g LV Mass Index: 99.90 43-95/49-115 g/m2 LVOT Diam: 2.10 3.0+(-)1.3 cm 2D Systolic Function EF 4C: 58.70 >55% EF 2C: 57.50 >55% EF BiP: 57.40 >55% Mitral Valve MV Pk E: 0.97 MV PK A: 0.67 MV Decel Time: 187.00 E/A: 1.40 E'Lateral: 12.60 E'Medial: 7.07 E/E' Med: 13.70 E/E' Lat: 7.70 PHT: 55.00 MVA PHT: 4.00 Decel [place]: 5.16 Aortic Valve AoV Pk Aldo: 1.76 AoV Mn Aldo: 1.36 AoV VTI: 0.41 AoV Pk Grad: 12.00 Aov Mn Grad: 8.00 LAY Cont.VTI: 2.01 LVOT LVOT Pk Aldo: 1.09 LVOT Mn Aldo: 0.79 LVOT VTI: 0.24 LVOT Pk Grad: 5.00 LVOT Mn Grad: 3.00 LVOT Diam: 2.10 LVOT Area: 3.46 Diastolic Function MV Pk E: 0.97 MV Pk A: 0.67 E/A: 1.40 E'Medial: 7.07 E/E' Med: 13.70 E' Laterial: 12.60 E/E' Lat: 7.70 Right Ventricle TAPSE (mm): 19.00 TVS' Aldo: 11.00 Tricuspid Valve TR Pk Aldo: 2.54 TR Pk Grad: 26.00 RA Press: 15.00 RVSP: 41.00 Great Vessels Aorta Sinus of Valsalva: 3.40 2.0-3.5 cm Ao Asc: 3.40 2.1-3.4 cm Updated in Other Vendor System with Status of Final Edison Maddox MD electronically signed on 09/29/2021 10:07:33 PM with status of Final
[2021-09-29] MEDS: Insulin Lispro 100 UNIT/ML 3 ML VIAL SUBCUT ×4 (08:15→20:22)
--- NOTE | 2021-09-29 09:10 | MHC.CM.PN ---
Addendum entered by Leslie Ivey 09/29/21 09:13: Patient is not currently active with [facility]. But they can accept patient if services are needed. Original Note: Attempted to meet with patient in regards to discharge planning. Patient currently sleeping. No family at bedside. Attempted to speak with patient's son, Yakov, via telephone at [phone]. Left message requesting return telephone call and explaining IMM would be sent via certified mail. Case management assessment completed using medical record. Patient lives alone, uses a motorized wheelchair for mobility and has home health aides and meals on wheels through [facility]. Patient has been active with [facility] in the past. Referral made in [employer] to verify if patient is still active with their agency. Copy of HCP verified to be on file. Anticipate patient will need transportation at discharge. Patient received 1 dose of J&J vaccine. Continue to monitor for d/c needs.
[2021-09-29] MEDS: Dextrose 5 % and 0.9 % NaCl 1,000 ML 100 ML IVCONT ×3 (09:21→20:04)
[2021-09-29] MEDS: 0.9 % Sodium Chloride Flush 3 ML SYRINGE IVFLUSH ×2 (09:25→16:15)
--- NOTE | 2021-09-29 09:59 | PC.NURSE ---
Pt lethargic and somnolent. Awakens to painful stimuli and falls back asleep. PO medications held. MD Galvin aware. D5NS running at 100mls/hr. VSS.
[2021-09-29 11:33] LABS: Glucose, Whole Blood 192 mg/dL (60-115)
--- NOTE | 2021-09-29 12:11 | PC.NURSE ---
patient sleeping, wakes to stimulus but not answering questions when asked, framing specialist nsr, ivf running per order, poc obtained- pt medicated per order. per report given by previous nurse patients PO medications are currently being held, pure wick intact, call torres within reach, will continue to monitor.
--- NOTE | 2021-09-29 13:30 | PC.NURSE ---
pts pure wick was no longer draining, full bed change was performed, pure wick cannister has been changed new pure wick has been placed.
--- NOTE | 2021-09-29 13:39 | P.PNIM_ITS ---
Subjective Subjective Date of Service: 09/29/21 Interval History: the patient was seen and evaluated this morning Laying in bed, barely responsive to stimuli by opening her eyes Unable to provide any meaningful answers No reported other overnight events. Review of Systems Unable to obtain given patient encephalopathy. Physical Exam Vital Signs: Vital Signs: Last Vital Signs Temp 97.9 F 09/29/21 11:25 Pulse 79 09/29/21 11:25 Resp 10 L 09/29/21 11:25 BP 135/56 L 09/29/21 11:25 Pulse Ox 96 09/29/21 11:25 Oxygen Flow Rate 5 09/28/21 16:04 BMI result Body Mass Index 35.5 Const: Other: Appearance: Alert with stimulation, No acute distress, very lethargic, patient opens her eyes when her name is called, nonverbal Eyes: Pinpoint pupils, Pupils equal, round and reactive to light. Neck: Normal inspection. Neck supple. CVS: Normal heart rate and rhythm. Pulses normal. Respiratory: No respiratory distress. Breath sounds normal. No Wheezing. No rales Abdomen: Soft and nontender. No rigidity. Skin: Skin warm and dry. Normal skin color. Extremities: No lower extremity edema. No Lacerations. Neuro: Unable to participate in cranial nerve assessment but otherwise lethargic and barely responsive to verbal stimuli Objective Data Active Medications Acetaminophen (Acetaminophen 325 Mg Tablet) 650 mg PO Q6H PRN PRN Reason: Pain, Mild (Pain Scale 1-3) Albuterol Sulfate (Albuterol Sulfate 90 Mcg 8 Gm Inhaler) 2 puff INHALE Q6H PRN PRN Reason: Shortness Of Breath Or Wheezing Amlodipine Besylate (Amlodipine Besylate 10 Mg Tablet) 10 mg PO DAILY [facility]; Protocol Last Admin: 09/29/21 09:53 Dose: Not Given Documented by: KARLA Non-Admin Reason: Patient Condition Contraindication Clonazepam (Clonazepam 1 Mg Tablet) 1 mg PO BID [facility] Last Admin: 09/29/21 09:53 Dose: Not Given Documented by: KARLA Non-Admin Reason: Patient Condition Contraindication Dabigatran (Dabigatran Etexilate Mesylate 150 Mg Capsule) 150 mg PO BID [facility] Last Admin: 09/29/21 09:53 Dose: Not Given Documented by: KARLA Non-Admin Reason: Patient Condition Contraindication Dextrose (Dextrose 50 % 25 Gm/50 Ml Syringe) 25 gm IVPUSH Q15M PRN; Protocol PRN Reason: per Hypoglycemia Standing Ord. Escitalopram Oxalate (Escitalopram Oxalate 10 Mg Tablet) 10 mg PO DAILY [facility] Last Admin: 09/29/21 09:53 Dose: Not Given Documented by: KARLA Non-Admin Reason: Patient Condition Contraindication Furosemide (Furosemide 20 Mg Tablet) 20 mg PO DAILY [facility]; Protocol Last Admin: 09/29/21 09:53 Dose: Not Given Documented by: KARLA Non-Admin Reason: Patient Condition Contraindication Glucose (Glucose Gel 15 Gm Gel..Gram.) 15 gm PO Q15M PRN; Protocol PRN Reason: per Hypoglycemia Standing Ord. Dextrose/Sodium Chloride (D5ns) 1,000 mls @ 100 mls/hr IVCONT .Q10H [facility] Last Admin: 09/29/21 09:21 Dose: 100 mls/hr Documented by: KARLA Ceftriaxone Sodium 1 gm/ (Sodium Chloride) 50 mls @ 100 mls/hr IV Q24H [facility] Insulin Human Lispro (Insulin Lispro 100 Unit/Ml 3 Ml Vial) 0 unit SUBCUT QIDACHS [facility]; Protocol Last Admin: 09/29/21 11:49 Dose: 2 unit Documented by: FABIEN Melatonin (Melatonin 3 Mg Tablet) 6 mg PO BEDTIME PRN PRN Reason: Insomnia Pharmacy Consult (Consult Rx Perform Med Rec) 1 each MISCELLANE ONCE PRN PRN Reason: Consult order Pregabalin (Pregabalin 100 Mg Capsule) 100 mg PO TID [facility] Last Admin: 09/29/21 09:53 Dose: Not Given Documented by: KARLA Non-Admin Reason: Patient Condition Contraindication Senna (Sennosides 8.6 Mg Tablet) 17.2 mg PO BEDTIME PRN PRN Reason: Constipation Sodium Chloride (0.9 % Sodium Chloride Flush 3 Ml Syringe) 3 ml IVFLUSH QSHIFT [facility] Last Admin: 09/29/21 09:25 Dose: 3 ml Documented by: KARLA Labs CBC & Chem 7: 09/29/21 05:28 09/29/21 05:28 Labs: Laboratory Results - last 24 hr 09/28/21 09/28/21 09/28/21 17:20 17:20 17:20 MCV 97.1 MCH 30.7 MCHC 31.6 RDW 13.7 Plt Count 266 MPV 9.1 L Immature Gran % (Auto) 1.0 H Neut % (Auto) 88.2 H Lymph % (Auto) 4.3 L [place] % (Auto) 6.4 Eos % (Auto) 0.0 Baso % (Auto) 0.1 Lymph # (Auto) 0.7 L [place] # (Auto) 1.0 Eos # (Auto) 0.0 Baso # (Auto) 0.0 Abs Immat Gran (auto) 0.15 H Absolute Neuts (auto) 13.4 H Absolute Nucleated RBC 0.000 Nucleated RBC % (auto) 0.0 PT INR APTT D-Dimer High Sensitivty VBG pH VBG pCO2 VBG pO2 VBG HCO3 VBG O2 Saturation VBG Base Excess Anion Gap 19 Estim Creat Clear Calc 35.9 Estimated GFR 28 POC Glucose Random Glucose 207 H Lactic Acid Lactic Acid F/U @ 2Hr Calcium 8.8 D Magnesium 1.9 Total Bilirubin 0.2 Direct Bilirubin 0.2 AST 87 H ALT 67 H Alkaline Phosphatase 132 H D Ammonia Total Creatine Kinase 2414 H D Troponin I High Sens 3311.2 H* B-Natriuretic Peptide Total Protein 7.9 Albumin 4.3 Urine Color Urine Appearance Urine pH Ur Specific [place] Urine Protein Urine Glucose (UA) Urine Ketones Urine Blood Urine Nitrite Ur Leukocyte Esterase Urine RBC Urine WBC Ur Squamous Epith Cells Urine Bacteria Urine Opiates Screen Urine Fentanyl Screen Ur Barbiturates Screen Ur Phencyclidine Scrn Ur Amphetamines Screen U Benzodiazepines Scrn Urine Cocaine Screen U Marijuana (THC) Screen Ethyl Alcohol COVID-19 (ELLEN) COVID-19 Clin Com Hep Bs Antigen Hep Bs Antibody Hep B Core Total Ab Hepatitis C Ab (EIA) Influenza Type A (ARSEN) Influenza Type B (ARSEN) Influenza A & B Note 09/28/21 09/28/21 09/28/21 17:20 17:20 17:20 MCV MCH MCHC RDW Plt Count MPV Immature Gran % (Auto) Neut % (Auto) Lymph % (Auto) [place] % (Auto) Eos % (Auto) Baso % (Auto) Lymph # (Auto) [place] # (Auto) Eos # (Auto) Baso # (Auto) Abs Immat Gran (auto) Absolute Neuts (auto) Absolute Nucleated RBC Nucleated RBC % (auto) PT INR APTT D-Dimer High Sensitivty VBG pH VBG pCO2 VBG pO2 VBG HCO3 VBG O2 Saturation VBG Base Excess Anion Gap Estim Creat Clear Calc Estimated GFR POC Glucose Random Glucose Lactic Acid 3.2 H* Lactic Acid F/U @ 2Hr Calcium Magnesium Total Bilirubin Direct Bilirubin AST ALT Alkaline Phosphatase Ammonia Total Creatine Kinase Troponin I High Sens B-Natriuretic Peptide Total Protein Albumin Urine Color Urine Appearance Urine pH Ur Specific [place] Urine Protein Urine Glucose (UA) Urine Ketones Urine Blood Urine Nitrite Ur Leukocyte Esterase Urine RBC Urine WBC Ur Squamous Epith Cells Urine Bacteria Urine Opiates Screen Urine Fentanyl Screen Ur Barbiturates Screen Ur Phencyclidine Scrn Ur Amphetamines Screen U Benzodiazepines Scrn Urine Cocaine Screen U Marijuana (THC) Screen Ethyl Alcohol COVID-19 (ELLEN) Negative COVID-19 Clin Com See Note Hep Bs Antigen Hep Bs Antibody Hep B Core Total Ab Hepatitis C Ab (EIA) Influenza Type A (ARSEN) Negative Influenza Type B (ARSEN) Negative Influenza A & B Note See Note 09/28/21 09/28/21 09/28/21 17:20 17:20 17:20 MCV MCH MCHC RDW Plt Count MPV Immature Gran % (Auto) Neut % (Auto) Lymph % (Auto) [place] % (Auto) Eos % (Auto) Baso % (Auto) Lymph # (Auto) [place] # (Auto) Eos # (Auto) Baso # (Auto) Abs Immat Gran (auto) Absolute Neuts (auto) Absolute Nucleated RBC Nucleated RBC % (auto) PT INR APTT D-Dimer High Sensitivty VBG pH VBG pCO2 VBG pO2 VBG HCO3 VBG O2 Saturation VBG Base Excess Anion Gap Estim Creat Clear Calc Estimated GFR POC Glucose Random Glucose Lactic Acid Lactic Acid F/U @ 2Hr Calcium Magnesium Total Bilirubin Direct Bilirubin AST ALT Alkaline Phosphatase Ammonia 25 Total Creatine Kinase Troponin I High Sens B-Natriuretic Peptide 511 H Total Protein Albumin Urine Color Urine Appearance Urine pH Ur Specific [place] Urine Protein Urine Glucose (UA) Urine Ketones Urine Blood Urine Nitrite Ur Leukocyte Esterase Urine RBC Urine WBC Ur Squamous Epith Cells Urine Bacteria Urine Opiates Screen Urine Fentanyl Screen Ur Barbiturates Screen Ur Phencyclidine Scrn Ur Amphetamines Screen U Benzodiazepines Scrn Urine Cocaine Screen U Marijuana (THC) Screen Ethyl Alcohol < 10 COVID-19 (ELLEN) COVID-19 Clin Com Hep Bs Antigen Hep Bs Antibody Hep B Core Total Ab Hepatitis C Ab (EIA) Influenza Type A (ARSEN) Influenza Type B (ARSEN) Influenza A & B Note 09/28/21 09/28/21 09/28/21 17:20 19:05 19:05 MCV MCH MCHC RDW Plt Count MPV Immature Gran % (Auto) Neut % (Auto) Lymph % (Auto) [place] % (Auto) Eos % (Auto) Baso % (Auto) Lymph # (Auto) [place] # (Auto) Eos # (Auto) Baso # (Auto) Abs Immat Gran (auto) Absolute Neuts (auto) Absolute Nucleated RBC Nucleated RBC % (auto) PT INR APTT D-Dimer High Sensitivty 2401 VBG pH VBG pCO2 VBG pO2 VBG HCO3 VBG O2 Saturation VBG Base Excess Anion Gap Estim Creat Clear Calc Estimated GFR POC Glucose Random Glucose Lactic Acid Lactic Acid F/U @ 2Hr Calcium Magnesium Total Bilirubin Direct Bilirubin AST ALT Alkaline Phosphatase Ammonia Total Creatine Kinase Troponin I High Sens B-Natriuretic Peptide Total Protein Albumin Urine Color YELLOW Urine Appearance HAZY Urine pH 5.5 Ur Specific [place] >= 1.030 H Urine Protein 1+ H Urine Glucose (UA) NEG Urine Ketones 5 Urine Blood 3+ H Urine Nitrite NEG Ur Leukocyte Esterase 1+ H Urine RBC 1-4 Urine WBC 1-4 Ur Squamous Epith Cells 1+ Urine Bacteria 2+ Urine Opiates Screen POSITIVE H Urine Fentanyl Screen POSITIVE H Ur Barbiturates Screen Not Detected Ur Phencyclidine Scrn Not Detected Ur Amphetamines Screen Not Detected U Benzodiazepines Scrn POSITIVE H Urine Cocaine Screen Not Detected U Marijuana (THC) Screen Not Detected Ethyl Alcohol COVID-19 (ELLEN) COVID-19 Clin Com Hep Bs Antigen Hep Bs Antibody Hep B Core Total Ab Hepatitis C Ab (EIA) Influenza Type A (ARSEN) Influenza Type B (ARSEN) Influenza A & B Note 09/28/21 09/28/21 09/28/21 20:24 20:24 20:24 MCV MCH MCHC RDW Plt Count MPV Immature Gran % (Auto) Neut % (Auto) Lymph % (Auto) [place] % (Auto) Eos % (Auto) Baso % (Auto) Lymph # (Auto) [place] # (Auto) Eos # (Auto) Baso # (Auto) Abs Immat Gran (auto) Absolute Neuts (auto) Absolute Nucleated RBC Nucleated RBC % (auto) PT 15.6 H INR 1.4 H APTT 63.5 H* D-Dimer High Sensitivty VBG pH VBG pCO2 VBG pO2 VBG HCO3 VBG O2 Saturation VBG Base Excess Anion Gap Estim Creat Clear Calc Estimated GFR POC Glucose Random Glucose Lactic Acid Lactic Acid F/U @ 2Hr 2.0 Calcium Magnesium Total Bilirubin Direct Bilirubin AST ALT Alkaline Phosphatase Ammonia Total Creatine Kinase Troponin I High Sens 3251.3 H* B-Natriuretic Peptide Total Protein Albumin Urine Color Urine Appearance Urine pH Ur Specific [place] Urine Protein Urine Glucose (UA) Urine Ketones Urine Blood Urine Nitrite Ur Leukocyte Esterase Urine RBC Urine WBC Ur Squamous Epith Cells Urine Bacteria Urine Opiates Screen Urine Fentanyl Screen Ur Barbiturates Screen Ur Phencyclidine Scrn Ur Amphetamines Screen U Benzodiazepines Scrn Urine Cocaine Screen U Marijuana (THC) Screen Ethyl Alcohol COVID-19 (ELLEN) COVID-19 Clin Com Hep Bs Antigen Hep Bs Antibody Hep B Core Total Ab Hepatitis C Ab (EIA) Influenza Type A (ARSEN) Influenza Type B (ARSEN) Influenza A & B Note 09/28/21 09/29/21 09/29/21 20:29 05:28 05:28 MCV 99.1 H MCH 30.5 MCHC 30.8 L RDW 14.0 Plt Count 223 MPV 9.4 Immature Gran % (Auto) 0.7 H Neut % (Auto) 85.0 H Lymph % (Auto) 5.9 L [place] % (Auto) 8.2 Eos % (Auto) 0.0 Baso % (Auto) 0.2 Lymph # (Auto) 0.8 L [place] # (Auto) 1.1 Eos # (Auto) 0.0 Baso # (Auto) 0.0 Abs Immat Gran (auto) 0.09 H Absolute Neuts (auto) 10.9 H Absolute Nucleated RBC 0.020 H Nucleated RBC % (auto) 0.2 PT INR APTT D-Dimer High Sensitivty VBG pH 7.40 VBG pCO2 37 VBG pO2 127 VBG HCO3 23 VBG O2 Saturation 99.0 VBG Base Excess -0.7 Anion Gap 13 Estim Creat Clear Calc 59.2 Estimated GFR 49 POC Glucose Random Glucose 240 H Lactic Acid Lactic Acid F/U @ 2Hr Calcium 7.9 L D Magnesium Total Bilirubin Direct Bilirubin AST ALT Alkaline Phosphatase Ammonia Total Creatine Kinase Troponin I High Sens B-Natriuretic Peptide Total Protein Albumin Urine Color Urine Appearance Urine pH Ur Specific [place] Urine Protein Urine Glucose (UA) Urine Ketones Urine Blood Urine Nitrite Ur Leukocyte Esterase Urine RBC Urine WBC Ur Squamous Epith Cells Urine Bacteria Urine Opiates Screen Urine Fentanyl Screen Ur Barbiturates Screen Ur Phencyclidine Scrn Ur Amphetamines Screen U Benzodiazepines Scrn Urine Cocaine Screen U Marijuana (THC) Screen Ethyl Alcohol COVID-19 (ELLEN) COVID-19 Clin Com Hep Bs Antigen Hep Bs Antibody Hep B Core Total Ab Hepatitis C Ab (EIA) Influenza Type A (ARSEN) Influenza Type B (ARSEN) Influenza A & B Note 09/29/21 09/29/21 09/29/21 05:28 05:28 07:22 MCV MCH MCHC RDW Plt Count MPV Immature Gran % (Auto) Neut % (Auto) Lymph % (Auto) [place] % (Auto) Eos % (Auto) Baso % (Auto) Lymph # (Auto) [place] # (Auto) Eos # (Auto) Baso # (Auto) Abs Immat Gran (auto) Absolute Neuts (auto) Absolute Nucleated RBC Nucleated RBC % (auto) PT INR APTT D-Dimer High Sensitivty VBG pH VBG pCO2 VBG pO2 VBG HCO3 VBG O2 Saturation VBG Base Excess Anion Gap Estim Creat Clear Calc Estimated GFR POC Glucose 224 H Random Glucose Lactic Acid Lactic Acid F/U @ 2Hr Calcium Magnesium Total Bilirubin Direct Bilirubin AST ALT Alkaline Phosphatase Ammonia Total Creatine Kinase 1710 H Troponin I High Sens B-Natriuretic Peptide Total Protein Albumin Urine Color Urine Appearance Urine pH Ur Specific [place] Urine Protein Urine Glucose (UA) Urine Ketones Urine Blood Urine Nitrite Ur Leukocyte Esterase Urine RBC Urine WBC Ur Squamous Epith Cells Urine Bacteria Urine Opiates Screen Urine Fentanyl Screen Ur Barbiturates Screen Ur Phencyclidine Scrn Ur Amphetamines Screen U Benzodiazepines Scrn Urine Cocaine Screen U Marijuana (THC) Screen Ethyl Alcohol COVID-19 (ELLEN) COVID-19 Clin Com Hep Bs Antigen Negative Hep Bs Antibody NONREACTIVE Hep B Core Total Ab Nonreactive Hepatitis C Ab (EIA) Nonreactive Influenza Type A (ARSEN) Influenza Type B (ARSEN) Influenza A & B Note 09/29/21 11:29 MCV MCH MCHC RDW Plt Count MPV Immature Gran % (Auto) Neut % (Auto) Lymph % (Auto) [place] % (Auto) Eos % (Auto) Baso % (Auto) Lymph # (Auto) [place] # (Auto) Eos # (Auto) Baso # (Auto) Abs Immat Gran (auto) Absolute Neuts (auto) Absolute Nucleated RBC Nucleated RBC % (auto) PT INR APTT D-Dimer High Sensitivty VBG pH VBG pCO2 VBG pO2 VBG HCO3 VBG O2 Saturation VBG Base Excess Anion Gap Estim Creat Clear Calc Estimated GFR POC Glucose 192 H Random Glucose Lactic Acid Lactic Acid F/U @ 2Hr Calcium Magnesium Total Bilirubin Direct Bilirubin AST ALT Alkaline Phosphatase Ammonia Total Creatine Kinase Troponin I High Sens B-Natriuretic Peptide Total Protein Albumin Urine Color Urine Appearance Urine pH Ur Specific [place] Urine Protein Urine Glucose (UA) Urine Ketones Urine Blood Urine Nitrite Ur Leukocyte Esterase Urine RBC Urine WBC Ur Squamous Epith Cells Urine Bacteria Urine Opiates Screen Urine Fentanyl Screen Ur Barbiturates Screen Ur Phencyclidine Scrn Ur Amphetamines Screen U Benzodiazepines Scrn Urine Cocaine Screen U Marijuana (THC) Screen Ethyl Alcohol COVID-19 (ELLEN) COVID-19 Clin Com Hep Bs Antigen Hep Bs Antibody Hep B Core Total Ab Hepatitis C Ab (EIA) Influenza Type A (ARSEN) Influenza Type B (ARSEN) Influenza A & B Note Microbiology Microbiology Results: Microbiology 09/28/21 19:18 Urine Culture - Preliminary Urine clean catch - Clean Catch Midstream Gram negative risa Assessment and Plan (1) Acute metabolic encephalopathy: Status: Acute (2) Acute kidney injury: Status: Acute (3) Elevated troponin: Status: Acute (4) Rhabdomyolysis: Status: Acute Plan 76-year-old female with a past medical history of diabetes, CAD, diastolic CHF, AFib on Pradaxa, osteoarthritis, history of breast cancer presented to the hospital today with a chief complaint of unresponsive episode.? Metabolic encephalopathy The patient barely responsive to stimuli with opening eyes then she goes back to sleep CT head showed no acute findings. U tox for positive for opiate, fentanyl, benzos.? Concern if she took extra clonazepam Monitor on telemetry To give a dose of flumazenil to treat possible overdose spike olanzapine ANABELL Likely prerenal secondary to rhabdo Creatinine improved to 1 from 1.8 admission Gentle IV fluids. Nephrology consult Rhabdomyolysis Continue IV fluids.? Monitor CPK levels. Mild transaminitis Likely secondary to rhabdomyolysis.? Monitor liver enzymes.? Negative acute hepatitis panel. Elevated troponins:? no reported chest pain or EKG changes to suggest ACS Likely secondary to rhabdomyolysis continue Pradaxa.? Follow-up troponin plateaued: [id number]. pending Echocardiogram cardiology notified and consulted UTI? c/w ceftriaxone empirically Urine growing GNR pending blood culture History of a diastolic CHF:? Patient is being given gentle IV fluids for rhabdomyolysis.??Monitor for signs of fluid overload.? Hold home Lasix for now. History of paroxysmal AFib:? Patient on Pradaxa.? History of depression: Continue home escitalopram History of anxiety:? Will?resume Klonopin from tomorrow if pt is more alert and awake. History of diabetes:? Patient on Lantus 30 units metformin at home--Hold now.? Will keep the patient on insulin sliding scale.? Monitor fingerstick glucose and adjust as needed. History of Hyperlipidemia:?Hold Statin for now DVT prophylaxis:? Patient on Pradaxa Code status: Full code.? Confirmed with the patient's son Yonis The patient will need to stay in the hospital overnight to continue evaluation for encephalopathy and treatment of acute kidney injury and UTI given high chance of Quality Stroke Does the patient have a stroke diagnosis?: No VTE Prior VTE?: No VTE Risk Level:: Medical - moderate - high VTE Device Contraindication: Treatment Not Indicated VTE Drug Contraindication: N/A - Med Ordered
[2021-09-29] MEDS: flumazeniL 0.5 MG/5 ML VIAL 0.2 MG IVPUSH (14:13)
--- NOTE | 2021-09-29 14:24 | PC.NURSE ---
pt medicated per order
--- NOTE | 2021-09-29 14:27 | PC.NURSE ---
patient sleeping, wakes to verbal stimulus, turned/positioned to comfort, warm blankets applied, call torres within reach, will continue to monitor.
--- NOTE | 2021-09-29 15:02 | PM.CNCAR ---
History of Present Illness History of Present Illness Date of Service: 09/29/21 Requesting physician: Melany Galvin Chief complaint: AMS, +troponin Narrative: 76-year-old female who is presenting for change in mental status . We have been asked to comment about the high troponin level. Patient is quite confusedAnd sleepy. No history is possible from her right now. High sensitivity troponin levels were elevated at 3311 and 3251. Her CPK level was 2414 and is down to 1710. She was down for some time. Her drug screen is positive for opiates, fentanyl and benzodiazepines. Currently very sleepy and unable to give any history. Saying no to most of the questions. ECG reviewed showing sinus rhythm, left ventricular hypertrophy, nonspecific T-wave changes, QT interval 446 milliseconds PMFSH Past Medical History Medical History Afib Hypercholesterolemia Lumbar degenerative disc disease Recurrent UTI Type 2 diabetes mellitus with hyperglycemia Family History Family History (Updated 09/10/21 @ 14:40 by Katie Mccullough [facility]) Father Diabetes Heart disease Mother Heart disease Son Opiate addiction Surgical History Surgical History History of lumpectomy of right breast History of tubal ligation Social History Social History Household Members: None Household Members Other:: Brought to ER by son with whom she lives Housing: Apartment Do you presently have visiting nurse or other home services: Yes Alcohol intake: never Patient Tobacco Use Status: Never used Tobacco e-Cigarette/Vaping Use: Never Used Second Hand Smoke Exposure: No Advance Directives: No Advance Directives Information Provided: No service: No Current occupational status: retired Cognitive needs: Yes (Electric Wheel Chair) Hearing needs: Yes (Earring Aids) Vision needs: Yes (Glasses) Meds Allergies Allergy/AdvReac Type Severity Reaction Status Date / Time sulfamethoxazole Allergy Intermediate rash face Verified 09/10/21 14:38 [From Bactrim] trimethoprim [From Bactrim] Allergy Intermediate rash face Verified 09/10/21 14:38 amoxicillin [Augmentin] Allergy Unknown Diarrhea Verified 09/10/21 14:38 clavulanic acid [Augmentin] Allergy Unknown Diarrhea Verified 09/10/21 14:38 Iodinated Contrast Media Allergy Unknown THROAT Verified 09/10/21 14:38 [IV Dye, Iodine Containing CLOSES Contrast ] UP/SWELLIN iodine [IODINE] Allergy Unknown ANAPHYLAXIS Verified 09/10/21 14:38 lisinopril [LISINOPRIL] Allergy Unknown UNKNOWN, Verified 09/10/21 14:38 cough, cough prednisone [PREDNISONE] Allergy Unknown INCREASE Verified 09/10/21 14:38 BLOOD PRESSURE quetiapine [From SEROQUEL] Allergy Unknown SWELLING Verified 09/10/21 14:38 X-ray dye Allergy Unknown Facial Verified 09/10/21 14:38 swelling/ trouble breathing apixaban [From Eliquis] AdvReac Intermediate Diarrhea Verified 09/10/21 14:38 Active Medications: Current Medications Acetaminophen (Acetaminophen 325 Mg Tablet) 650 mg PO Q6H PRN PRN Reason: Pain, Mild (Pain Scale 1-3) Albuterol Sulfate (Albuterol Sulfate 90 Mcg 8 Gm Inhaler) 2 puff INHALE Q6H PRN PRN Reason: Shortness Of Breath Or Wheezing Amlodipine Besylate (Amlodipine Besylate 10 Mg Tablet) 10 mg PO DAILY COUNT INCLUDES THE [facility]; Protocol Last Admin: 09/29/21 09:53 Dose: Not Given Documented by: Clonazepam (Clonazepam 1 Mg Tablet) 1 mg PO BID COUNT INCLUDES THE [facility] Last Admin: 09/29/21 09:53 Dose: Not Given Documented by: Dabigatran (Dabigatran Etexilate Mesylate 150 Mg Capsule) 150 mg PO BID COUNT INCLUDES THE [facility] Last Admin: 09/29/21 09:53 Dose: Not Given Documented by: Dextrose (Dextrose 50 % 25 Gm/50 Ml Syringe) 25 gm IVPUSH Q15M PRN; Protocol PRN Reason: per Hypoglycemia Standing Ord. Escitalopram Oxalate (Escitalopram Oxalate 10 Mg Tablet) 10 mg PO DAILY COUNT INCLUDES THE [facility] Last Admin: 09/29/21 09:53 Dose: Not Given Documented by: Furosemide (Furosemide 20 Mg Tablet) 20 mg PO DAILY COUNT INCLUDES THE [facility]; Protocol Last Admin: 09/29/21 09:53 Dose: Not Given Documented by: Glucose (Glucose Gel 15 Gm Gel..Gram.) 15 gm PO Q15M PRN; Protocol PRN Reason: per Hypoglycemia Standing Ord. Dextrose/Sodium Chloride (D5ns) 1,000 mls @ 100 mls/hr IVCONT .Q10H COUNT INCLUDES THE [facility] Last Admin: 09/29/21 09:21 Dose: 100 mls/hr Documented by: Ceftriaxone Sodium 1 gm/ (Sodium Chloride) 50 mls @ 100 mls/hr IV Q24H COUNT INCLUDES THE [facility] Insulin Human Lispro (Insulin Lispro 100 Unit/Ml 3 Ml Vial) 0 unit SUBCUT QIDACHS COUNT INCLUDES THE [facility]; Protocol Last Admin: 09/29/21 11:49 Dose: 2 unit Documented by: Melatonin (Melatonin 3 Mg Tablet) 6 mg PO BEDTIME PRN PRN Reason: Insomnia Pharmacy Consult (Consult Rx Perform Med Rec) 1 each MISCELLANE ONCE PRN PRN Reason: Consult order Pregabalin (Pregabalin 100 Mg Capsule) 100 mg PO TID COUNT INCLUDES THE [facility] Last Admin: 09/29/21 09:53 Dose: Not Given Documented by: Senna (Sennosides 8.6 Mg Tablet) 17.2 mg PO BEDTIME PRN PRN Reason: Constipation Sodium Chloride (0.9 % Sodium Chloride Flush 3 Ml Syringe) 3 ml IVFLUSH QSHIFT COUNT INCLUDES THE [facility] Last Admin: 09/29/21 14:26 Dose: Not Given Documented by: Home Medications Medication Instructions Recorded Confirmed Last Taken Type albuterol sulfate 90 mcg/actuation 2 puff INHALATION Q6H PRN 06/18/20 09/28/21 Unknown History aerosol inhaler Physical Exam Vital Signs: Vital Signs: Last Vital Signs Temp 97.9 F 09/29/21 11:25 Pulse 79 09/29/21 11:25 Resp 10 L 09/29/21 11:25 BP 135/56 L 09/29/21 11:25 Pulse Ox 96 09/29/21 11:25 Oxygen Flow Rate 5 09/28/21 16:04 BMI result Body Mass Index 35.5 GENERAL APPEARANCE: confused. Having some shakes and chills. NECK: no carotid bruit, no jugular venous distention. SKIN: no suspicious lesions, warm and dry. HEART: no murmurs, regular rate and rhythm. LUNGS: clear to auscultation bilaterally. ABDOMEN: soft, nontender. EXTREMITIES: no edema. PERIPHERAL PULSES: equal. NEUROLOGIC: Sleepy. Arousable but goes back to sleep quickly. Objective Labs and Meds Result diagrams: 09/29/21 05:28 09/29/21 05:28 Lab results: Laboratory Results - last 24 hr 09/28/21 09/28/21 09/28/21 17:20 17:20 17:20 WBC 15.2 H RBC 3.81 L Hgb 11.7 L Hct 37.0 MCV 97.1 MCH 30.7 MCHC 31.6 RDW 13.7 Plt Count 266 MPV 9.1 L Immature Gran % (Auto) 1.0 H Neut % (Auto) 88.2 H Lymph % (Auto) 4.3 L [place] % (Auto) 6.4 Eos % (Auto) 0.0 Baso % (Auto) 0.1 Lymph # (Auto) 0.7 L [place] # (Auto) 1.0 Eos # (Auto) 0.0 Baso # (Auto) 0.0 Abs Immat Gran (auto) 0.15 H Absolute Neuts (auto) 13.4 H Absolute Nucleated RBC 0.000 Nucleated RBC % (auto) 0.0 PT INR APTT D-Dimer High Sensitivty VBG pH VBG pCO2 VBG pO2 VBG HCO3 VBG O2 Saturation VBG Base Excess Sodium 140 Potassium 4.6 D Chloride 98 Carbon Dioxide 28 Anion Gap 19 BUN 23 H Creatinine 1.78 H Estim Creat Clear Calc 35.9 Estimated GFR 28 POC Glucose Random Glucose 207 H Lactic Acid Lactic Acid F/U @ 2Hr Calcium 8.8 D Magnesium 1.9 Total Bilirubin 0.2 Direct Bilirubin 0.2 AST 87 H ALT 67 H Alkaline Phosphatase 132 H D Ammonia Total Creatine Kinase 2414 H D Troponin I High Sens 3311.2 H* B-Natriuretic Peptide Total Protein 7.9 Albumin 4.3 Urine Color Urine Appearance Urine pH Ur Specific [place] Urine Protein Urine Glucose (UA) Urine Ketones Urine Blood Urine Nitrite Ur Leukocyte Esterase Urine RBC Urine WBC Ur Squamous Epith Cells Urine Bacteria Urine Opiates Screen Urine Fentanyl Screen Ur Barbiturates Screen Ur Phencyclidine Scrn Ur Amphetamines Screen U Benzodiazepines Scrn Urine Cocaine Screen U Marijuana (THC) Screen Ethyl Alcohol COVID-19 (ELLEN) COVID-19 Clin Com Hep Bs Antigen Hep Bs Antibody Hep B Core Total Ab Hepatitis C Ab (EIA) Influenza Type A (ARSEN) Influenza Type B (ARSEN) Influenza A & B Note 09/28/21 09/28/21 09/28/21 17:20 17:20 17:20 WBC RBC Hgb Hct MCV MCH MCHC RDW Plt Count MPV Immature Gran % (Auto) Neut % (Auto) Lymph % (Auto) [place] % (Auto) Eos % (Auto) Baso % (Auto) Lymph # (Auto) [place] # (Auto) Eos # (Auto) Baso # (Auto) Abs Immat Gran (auto) Absolute Neuts (auto) Absolute Nucleated RBC Nucleated RBC % (auto) PT INR APTT D-Dimer High Sensitivty VBG pH VBG pCO2 VBG pO2 VBG HCO3 VBG O2 Saturation VBG Base Excess Sodium Potassium Chloride Carbon Dioxide Anion Gap BUN Creatinine Estim Creat Clear Calc Estimated GFR POC Glucose Random Glucose Lactic Acid 3.2 H* Lactic Acid F/U @ 2Hr Calcium Magnesium Total Bilirubin Direct Bilirubin AST ALT Alkaline Phosphatase Ammonia Total Creatine Kinase Troponin I High Sens B-Natriuretic Peptide Total Protein Albumin Urine Color Urine Appearance Urine pH Ur Specific [place] Urine Protein Urine Glucose (UA) Urine Ketones Urine Blood Urine Nitrite Ur Leukocyte Esterase Urine RBC Urine WBC Ur Squamous Epith Cells Urine Bacteria Urine Opiates Screen Urine Fentanyl Screen Ur Barbiturates Screen Ur Phencyclidine Scrn Ur Amphetamines Screen U Benzodiazepines Scrn Urine Cocaine Screen U Marijuana (THC) Screen Ethyl Alcohol COVID-19 (ELLEN) Negative COVID-19 Clin Com See Note Hep Bs Antigen Hep Bs Antibody Hep B Core Total Ab Hepatitis C Ab (EIA) Influenza Type A (ARSEN) Negative Influenza Type B (ARSEN) Negative Influenza A & B Note See Note 09/28/21 09/28/21 09/28/21 17:20 17:20 17:20 WBC RBC Hgb Hct MCV MCH MCHC RDW Plt Count MPV Immature Gran % (Auto) Neut % (Auto) Lymph % (Auto) [place] % (Auto) Eos % (Auto) Baso % (Auto) Lymph # (Auto) [place] # (Auto) Eos # (Auto) Baso # (Auto) Abs Immat Gran (auto) Absolute Neuts (auto) Absolute Nucleated RBC Nucleated RBC % (auto) PT INR APTT D-Dimer High Sensitivty VBG pH VBG pCO2 VBG pO2 VBG HCO3 VBG O2 Saturation VBG Base Excess Sodium Potassium Chloride Carbon Dioxide Anion Gap BUN Creatinine Estim Creat Clear Calc Estimated GFR POC Glucose Random Glucose Lactic Acid Lactic Acid F/U @ 2Hr Calcium Magnesium Total Bilirubin Direct Bilirubin AST ALT Alkaline Phosphatase Ammonia 25 Total Creatine Kinase Troponin I High Sens B-Natriuretic Peptide 511 H Total Protein Albumin Urine Color Urine Appearance Urine pH Ur Specific [place] Urine Protein Urine Glucose (UA) Urine Ketones Urine Blood Urine Nitrite Ur Leukocyte Esterase Urine RBC Urine WBC Ur Squamous Epith Cells Urine Bacteria Urine Opiates Screen Urine Fentanyl Screen Ur Barbiturates Screen Ur Phencyclidine Scrn Ur Amphetamines Screen U Benzodiazepines Scrn Urine Cocaine Screen U Marijuana (THC) Screen Ethyl Alcohol < 10 COVID-19 (ELLEN) COVID-19 Clin Com Hep Bs Antigen Hep Bs Antibody Hep B Core Total Ab Hepatitis C Ab (EIA) Influenza Type A (ARSEN) Influenza Type B (ARSEN) Influenza A & B Note 09/28/21 09/28/21 09/28/21 17:20 19:05 19:05 WBC RBC Hgb Hct MCV MCH MCHC RDW Plt Count MPV Immature Gran % (Auto) Neut % (Auto) Lymph % (Auto) [place] % (Auto) Eos % (Auto) Baso % (Auto) Lymph # (Auto) [place] # (Auto) Eos # (Auto) Baso # (Auto) Abs Immat Gran (auto) Absolute Neuts (auto) Absolute Nucleated RBC Nucleated RBC % (auto) PT INR APTT D-Dimer High Sensitivty 2401 VBG pH VBG pCO2 VBG pO2 VBG HCO3 VBG O2 Saturation VBG Base Excess Sodium Potassium Chloride Carbon Dioxide Anion Gap BUN Creatinine Estim Creat Clear Calc Estimated GFR POC Glucose Random Glucose Lactic Acid Lactic Acid F/U @ 2Hr Calcium Magnesium Total Bilirubin Direct Bilirubin AST ALT Alkaline Phosphatase Ammonia Total Creatine Kinase Troponin I High Sens B-Natriuretic Peptide Total Protein Albumin Urine Color YELLOW Urine Appearance HAZY Urine pH 5.5 Ur Specific [place] >= 1.030 H Urine Protein 1+ H Urine Glucose (UA) NEG Urine Ketones 5 Urine Blood 3+ H Urine Nitrite NEG Ur Leukocyte Esterase 1+ H Urine RBC 1-4 Urine WBC 1-4 Ur Squamous Epith Cells 1+ Urine Bacteria 2+ Urine Opiates Screen POSITIVE H Urine Fentanyl Screen POSITIVE H Ur Barbiturates Screen Not Detected Ur Phencyclidine Scrn Not Detected Ur Amphetamines Screen Not Detected U Benzodiazepines Scrn POSITIVE H Urine Cocaine Screen Not Detected U Marijuana (THC) Screen Not Detected Ethyl Alcohol COVID-19 (ELLEN) COVID-19 Clin Com Hep Bs Antigen Hep Bs Antibody Hep B Core Total Ab Hepatitis C Ab (EIA) Influenza Type A (ARSEN) Influenza Type B (ARSEN) Influenza A & B Note 09/28/21 09/28/21 09/28/21 20:24 20:24 20:24 WBC RBC Hgb Hct MCV MCH MCHC RDW Plt Count MPV Immature Gran % (Auto) Neut % (Auto) Lymph % (Auto) [place] % (Auto) Eos % (Auto) Baso % (Auto) Lymph # (Auto) [place] # (Auto) Eos # (Auto) Baso # (Auto) Abs Immat Gran (auto) Absolute Neuts (auto) Absolute Nucleated RBC Nucleated RBC % (auto) PT 15.6 H INR 1.4 H APTT 63.5 H* D-Dimer High Sensitivty VBG pH VBG pCO2 VBG pO2 VBG HCO3 VBG O2 Saturation VBG Base Excess Sodium Potassium Chloride Carbon Dioxide Anion Gap BUN Creatinine Estim Creat Clear Calc Estimated GFR POC Glucose Random Glucose Lactic Acid Lactic Acid F/U @ 2Hr 2.0 Calcium Magnesium Total Bilirubin Direct Bilirubin AST ALT Alkaline Phosphatase Ammonia Total Creatine Kinase Troponin I High Sens 3251.3 H* B-Natriuretic Peptide Total Protein Albumin Urine Color Urine Appearance Urine pH Ur Specific [place] Urine Protein Urine Glucose (UA) Urine Ketones Urine Blood Urine Nitrite Ur Leukocyte Esterase Urine RBC Urine WBC Ur Squamous Epith Cells Urine Bacteria Urine Opiates Screen Urine Fentanyl Screen Ur Barbiturates Screen Ur Phencyclidine Scrn Ur Amphetamines Screen U Benzodiazepines Scrn Urine Cocaine Screen U Marijuana (THC) Screen Ethyl Alcohol COVID-19 (ELLEN) COVID-19 Clin Com Hep Bs Antigen Hep Bs Antibody Hep B Core Total Ab Hepatitis C Ab (EIA) Influenza Type A (ARSEN) Influenza Type B (ARSEN) Influenza A & B Note 09/28/21 09/29/21 09/29/21 20:29 05:28 05:28 WBC 12.8 H RBC 3.44 L Hgb 10.5 L Hct 34.1 L MCV 99.1 H MCH 30.5 MCHC 30.8 L RDW 14.0 Plt Count 223 MPV 9.4 Immature Gran % (Auto) 0.7 H Neut % (Auto) 85.0 H Lymph % (Auto) 5.9 L [place] % (Auto) 8.2 Eos % (Auto) 0.0 Baso % (Auto) 0.2 Lymph # (Auto) 0.8 L [place] # (Auto) 1.1 Eos # (Auto) 0.0 Baso # (Auto) 0.0 Abs Immat Gran (auto) 0.09 H Absolute Neuts (auto) 10.9 H Absolute Nucleated RBC 0.020 H Nucleated RBC % (auto) 0.2 PT INR APTT D-Dimer High Sensitivty VBG pH 7.40 VBG pCO2 37 VBG pO2 127 VBG HCO3 23 VBG O2 Saturation 99.0 VBG Base Excess -0.7 Sodium 140 Potassium 4.5 Chloride 102 Carbon Dioxide 30 H Anion Gap 13 BUN 22 H Creatinine 1.08 Estim Creat Clear Calc 59.2 Estimated GFR 49 POC Glucose Random Glucose 240 H Lactic Acid Lactic Acid F/U @ 2Hr Calcium 7.9 L D Magnesium Total Bilirubin Direct Bilirubin AST ALT Alkaline Phosphatase Ammonia Total Creatine Kinase Troponin I High Sens B-Natriuretic Peptide Total Protein Albumin Urine Color Urine Appearance Urine pH Ur Specific [place] Urine Protein Urine Glucose (UA) Urine Ketones Urine Blood Urine Nitrite Ur Leukocyte Esterase Urine RBC Urine WBC Ur Squamous Epith Cells Urine Bacteria Urine Opiates Screen Urine Fentanyl Screen Ur Barbiturates Screen Ur Phencyclidine Scrn Ur Amphetamines Screen U Benzodiazepines Scrn Urine Cocaine Screen U Marijuana (THC) Screen Ethyl Alcohol COVID-19 (ELLEN) COVID-19 Clin Com Hep Bs Antigen Hep Bs Antibody Hep B Core Total Ab Hepatitis C Ab (EIA) Influenza Type A (ARSEN) Influenza Type B (ARSEN) Influenza A & B Note 09/29/21 09/29/21 09/29/21 05:28 05:28 07:22 WBC RBC Hgb Hct MCV MCH MCHC RDW Plt Count MPV Immature Gran % (Auto) Neut % (Auto) Lymph % (Auto) [place] % (Auto) Eos % (Auto) Baso % (Auto) Lymph # (Auto) [place] # (Auto) Eos # (Auto) Baso # (Auto) Abs Immat Gran (auto) Absolute Neuts (auto) Absolute Nucleated RBC Nucleated RBC % (auto) PT INR APTT D-Dimer High Sensitivty VBG pH VBG pCO2 VBG pO2 VBG HCO3 VBG O2 Saturation VBG Base Excess Sodium Potassium Chloride Carbon Dioxide Anion Gap BUN Creatinine Estim Creat Clear Calc Estimated GFR POC Glucose 224 H Random Glucose Lactic Acid Lactic Acid F/U @ 2Hr Calcium Magnesium Total Bilirubin Direct Bilirubin AST ALT Alkaline Phosphatase Ammonia Total Creatine Kinase 1710 H Troponin I High Sens B-Natriuretic Peptide Total Protein Albumin Urine Color Urine Appearance Urine pH Ur Specific [place] Urine Protein Urine Glucose (UA) Urine Ketones Urine Blood Urine Nitrite Ur Leukocyte Esterase Urine RBC Urine WBC Ur Squamous Epith Cells Urine Bacteria Urine Opiates Screen Urine Fentanyl Screen Ur Barbiturates Screen Ur Phencyclidine Scrn Ur Amphetamines Screen U Benzodiazepines Scrn Urine Cocaine Screen U Marijuana (THC) Screen Ethyl Alcohol COVID-19 (ELLEN) COVID-19 Clin Com Hep Bs Antigen Negative Hep Bs Antibody NONREACTIVE Hep B Core Total Ab Nonreactive Hepatitis C Ab (EIA) Nonreactive Influenza Type A (ARSEN) Influenza Type B (ARSEN) Influenza A & B Note 09/29/21 11:29 WBC RBC Hgb Hct MCV MCH MCHC RDW Plt Count MPV Immature Gran % (Auto) Neut % (Auto) Lymph % (Auto) [place] % (Auto) Eos % (Auto) Baso % (Auto) Lymph # (Auto) [place] # (Auto) Eos # (Auto) Baso # (Auto) Abs Immat Gran (auto) Absolute Neuts (auto) Absolute Nucleated RBC Nucleated RBC % (auto) PT INR APTT D-Dimer High Sensitivty VBG pH VBG pCO2 VBG pO2 VBG HCO3 VBG O2 Saturation VBG Base Excess Sodium Potassium Chloride Carbon Dioxide Anion Gap BUN Creatinine Estim Creat Clear Calc Estimated GFR POC Glucose 192 H Random Glucose Lactic Acid Lactic Acid F/U @ 2Hr Calcium Magnesium Total Bilirubin Direct Bilirubin AST ALT Alkaline Phosphatase Ammonia Total Creatine Kinase Troponin I High Sens B-Natriuretic Peptide Total Protein Albumin Urine Color Urine Appearance Urine pH Ur Specific [place] Urine Protein Urine Glucose (UA) Urine Ketones Urine Blood Urine Nitrite Ur Leukocyte Esterase Urine RBC Urine WBC Ur Squamous Epith Cells Urine Bacteria Urine Opiates Screen Urine Fentanyl Screen Ur Barbiturates Screen Ur Phencyclidine Scrn Ur Amphetamines Screen U Benzodiazepines Scrn Urine Cocaine Screen U Marijuana (THC) Screen Ethyl Alcohol COVID-19 (ELLEN) COVID-19 Clin Com Hep Bs Antigen Hep Bs Antibody Hep B Core Total Ab Hepatitis C Ab (EIA) Influenza Type A (ARSEN) Influenza Type B (ARSEN) Influenza A & B Note Imaging Radiologist's impression: Impressions Chest X-Ray 09/28/21 16:24 IMPRESSION: Low lung volumes. Increased central lung markings and question small left pleural effusion. Pulmonary edema or pneumonia should be considered. Head CT 09/28/21 18:06 IMPRESSION: No acute intracranial process seen. Pulmonary Perfusion Imaging 09/28/21 19:45 IMPRESSION: Normal perfusion study with no defects seen to suspect any PE. Venous Duplex 09/28/21 21:58 IMPRESSION: Limited study. There is deep vein thrombosis in the thigh bilaterally. Assessment and Plan (1) Acute metabolic encephalopathy: Status: Acute (2) Elevated troponin: Status: Acute (3) Rhabdomyolysis: Status: Acute Plan 76-year-old female who is presenting for change in mental status. She has some rigors and chills which could be drug withdrawal versus sepsis. She is on antibiotics for Septra Aczone and is being treated for UTI. Her presentation is likely consistent with rhabdomyolysis with elevated CPK and troponin levels and transaminitis. ECG is not showing any significant dynamic changes. She is unable to give any history at this stage. I would favor not giving her heparin as she has been on Pradaxa also. We will review her echocardiogram to see if there is any regional wall motion abnormalities or anything concerning to point to overt ACS. I think the troponins are likely due to rhabdo. There is some question about her taking extra medications as a drug screen is positive then she has been quite unresponsive. She is being monitor for that closely. Currently do not feel that this is acute coronary syndrome. Thank you for allowing me to participate in the care of your patient. Please feel free to contact me if you have any questions. Procedures Date of Service Date of Service: 09/29/21
[2021-09-29 16:12] LABS: Glucose, Whole Blood 178 mg/dL (60-115)
--- NOTE | 2021-09-29 17:03 | P.CONNP_ITS ---
History of Present Illness Reason for Consult Consult date: 09/29/21 Reason for consult: ANABELL Chief Complaint Chief complaint: AMS, +troponin History of Present Illness Narrative: 76-year-old female presented to the hospital folowing an unresponsive episode.?It was not clear if the patient took an extra dose of Klonopin tablets. She denies any other complaints.?Review of all other systems is negative except mentioned above. In the ER patient was noted to be altered and drowsy; Patient's CPK was noted to be 2400.? Patient also noted to be in ANABELL with creatinine of 1.7 from baseline of 0.7.?? She was admitted to the hospital for further management. Nephrology has been consulted to assist in her clinical care during her current hospital stay? Review of Systems Review of Systems Yes all other systems are reviewed and are negative [facility] Past Medical History Medical History Afib Hypercholesterolemia Lumbar degenerative disc disease Recurrent UTI Type 2 diabetes mellitus with hyperglycemia Family History Family History (Updated 09/10/21 @ 14:40 by Katie Mccullough CMA) Father Diabetes Heart disease Mother Heart disease Son Opiate addiction Surgical History Surgical History History of lumpectomy of right breast History of tubal ligation Social History Social History Household Members: None Household Members Other:: Brought to ER by son with whom she lives Housing: Apartment Do you presently have visiting nurse or other home services: Yes Alcohol intake: never Patient Tobacco Use Status: Never used Tobacco e-Cigarette/Vaping Use: Never Used Second Hand Smoke Exposure: No Advance Directives: No Advance Directives Information Provided: No service: No Current occupational status: retired Cognitive needs: Yes (Electric Wheel Chair) Hearing needs: Yes (Earring Aids) Vision needs: Yes (Glasses) Meds Allergies Allergy/AdvReac Type Severity Reaction Status Date / Time sulfamethoxazole Allergy Intermediate rash face Verified 09/10/21 14:38 [From Bactrim] trimethoprim [From Bactrim] Allergy Intermediate rash face Verified 09/10/21 14:38 amoxicillin [Augmentin] Allergy Unknown Diarrhea Verified 09/10/21 14:38 clavulanic acid [Augmentin] Allergy Unknown Diarrhea Verified 09/10/21 14:38 Iodinated Contrast Media Allergy Unknown THROAT Verified 09/10/21 14:38 [IV Dye, Iodine Containing CLOSES Contrast ] UP/SWELLIN iodine [IODINE] Allergy Unknown ANAPHYLAXIS Verified 09/10/21 14:38 lisinopril [LISINOPRIL] Allergy Unknown UNKNOWN, Verified 09/10/21 14:38 cough, cough prednisone [PREDNISONE] Allergy Unknown INCREASE Verified 09/10/21 14:38 BLOOD PRESSURE quetiapine [From SEROQUEL] Allergy Unknown SWELLING Verified 09/10/21 14:38 X-ray dye Allergy Unknown Facial Verified 09/10/21 14:38 swelling/ trouble breathing apixaban [From Eliquis] AdvReac Intermediate Diarrhea Verified 09/10/21 14:38 Active Medications: Current Medications Acetaminophen (Acetaminophen 325 Mg Tablet) 650 mg PO Q6H PRN PRN Reason: Pain, Mild (Pain Scale 1-3) Albuterol Sulfate (Albuterol Sulfate 90 Mcg 8 Gm Inhaler) 2 puff INHALE Q6H PRN PRN Reason: Shortness Of Breath Or Wheezing Amlodipine Besylate (Amlodipine Besylate 10 Mg Tablet) 10 mg PO DAILY [facility]; Protocol Last Admin: 09/29/21 09:53 Dose: Not Given Documented by: Clonazepam (Clonazepam 1 Mg Tablet) 1 mg PO BID [facility] Last Admin: 09/29/21 09:53 Dose: Not Given Documented by: Dabigatran (Dabigatran Etexilate Mesylate 150 Mg Capsule) 150 mg PO BID [facility] Last Admin: 09/29/21 09:53 Dose: Not Given Documented by: Dextrose (Dextrose 50 % 25 Gm/50 Ml Syringe) 25 gm IVPUSH Q15M PRN; Protocol PRN Reason: per Hypoglycemia Standing Ord. Escitalopram Oxalate (Escitalopram Oxalate 10 Mg Tablet) 10 mg PO DAILY [facility] Last Admin: 09/29/21 09:53 Dose: Not Given Documented by: Furosemide (Furosemide 20 Mg Tablet) 20 mg PO DAILY [facility]; Protocol Last Admin: 09/29/21 09:53 Dose: Not Given Documented by: Glucose (Glucose Gel 15 Gm Gel..Gram.) 15 gm PO Q15M PRN; Protocol PRN Reason: per Hypoglycemia Standing Ord. Dextrose/Sodium Chloride (D5ns) 1,000 mls @ 100 mls/hr IVCONT .Q10H [facility] Last Admin: 09/29/21 16:16 Dose: 100 mls/hr Documented by: Ceftriaxone Sodium 1 gm/ (Sodium Chloride) 50 mls @ 100 mls/hr IV Q24H [facility] Insulin Human Lispro (Insulin Lispro 100 Unit/Ml 3 Ml Vial) 0 unit SUBCUT QIDACHS [facility]; Protocol Last Admin: 09/29/21 16:15 Dose: 2 unit Documented by: Melatonin (Melatonin 3 Mg Tablet) 6 mg PO BEDTIME PRN PRN Reason: Insomnia Pharmacy Consult (Consult Rx Perform Med Rec) 1 each MISCELLANE ONCE PRN PRN Reason: Consult order Pregabalin (Pregabalin 100 Mg Capsule) 100 mg PO TID [facility] Last Admin: 09/29/21 09:53 Dose: Not Given Documented by: Senna (Sennosides 8.6 Mg Tablet) 17.2 mg PO BEDTIME PRN PRN Reason: Constipation Sodium Chloride (0.9 % Sodium Chloride Flush 3 Ml Syringe) 3 ml IVFLUSH QSHIFT [facility] Last Admin: 09/29/21 16:15 Dose: 3 ml Documented by: Home Medications Medication Instructions Recorded Confirmed Last Taken Type albuterol sulfate 90 mcg/actuation 2 puff INHALATION Q6H PRN 06/18/20 09/28/21 Unknown History aerosol inhaler Physical Exam Vital Signs: Last Vital Signs Temp 98.1 F 09/29/21 15:43 Pulse 84 09/29/21 15:43 Resp 18 09/29/21 15:43 BP 151/58 H 09/29/21 15:43 Pulse Ox 97 09/29/21 15:43 Oxygen Flow Rate 5 09/28/21 16:04 BMI result Body Mass Index 35.5 Const General: no acute distress Eyes EOM: EOMs intact bilaterally Neck Neck: Yes supple Resp Auscultation: diminished lung sounds Cardio Rate: regular rate GI Palpation (GI): Soft to palpation Neuro General: moves all extremities Results Lab Results Result Diagrams: 09/29/21 05:28 09/29/21 05:28 Lab results: Chemistry 09/28/21 09/29/21 17:20 05:28 Sodium 140 140 Potassium 4.6 D 4.5 Carbon Dioxide 28 30 H BUN 23 H 22 H Creatinine 1.78 H 1.08 Calcium 8.8 D 7.9 L D Hematology 09/28/21 09/29/21 17:20 05:28 WBC 15.2 H 12.8 H Hgb 11.7 L 10.5 L Plt Count 266 223 Urinalysis 09/28/21 19:05 Urine Color YELLOW Urine Appearance HAZY Urine pH 5.5 Ur Specific [place] >= 1.030 H Urine Protein 1+ H Urine Glucose (UA) NEG Urine Ketones 5 Urine Blood 3+ H Urine Nitrite NEG Ur Leukocyte Esterase 1+ H Urine RBC 1-4 Urine WBC 1-4 Ur Squamous Epith Cells 1+ Assessment and Plan (1) Acute kidney injury: Status: Acute Plan Acute Kidney Injury due to compromise in renal perfusion Had been on diuretics; CPK was high. Urine output has been good No reason to suspect GN/AIN. Has been on IV fluids Serum creatinine improving. C/W current supportive care Procedures Date of Service Date of Service: 09/29/21
--- NOTE | 2021-09-29 17:18 | PC.NURSE ---
floor to call back to get report
[2021-09-29 20:13] LABS: Glucose, Whole Blood 153 mg/dL (60-115)
[2021-09-29] MEDS: cefTRIAXone sodium 1 GM in 0.9 % Sodium Chloride 50 ML IV (20:23)
[2021-09-30] VITALS (7 sets, daily range): BP systolic 124–160; BP diastolic 66–79; PULSE 67–129; RESP 18–20; TEMP 35.9–37.2; O2SAT 95–97
[2021-09-30 04:11] LABS: Hepatitis A Antibody IgM 0.21 Index (0-0.79); ~Hepatitis A Antibody IgM Nonreactive (Nonreactive)
[2021-09-30] MEDS: Dextrose 5 % and 0.9 % NaCl 1,000 ML 100 ML IVCONT (04:30)
[2021-09-30 06:32] LABS: Hematocrit 30.3 % (37.0-47.0); Hemoglobin 9.5 g/dl (12.0-16.0); Mean Corpuscular HGB Conc 31.4 g/dl (31.0-35.0); Mean Corpuscular Hemoglobin 30.7 pg (27.0-33.0); Mean Corpuscular Volume 98.1 fL (80.0-98.0); Mean Platelet Volume 9.6 fL (9.4-12.3); Platelet Count 206 X10*3/uL (160-400); Red Blood Count 3.09 X10*6/uL (4.20-5.50); Red Cell Distribution Width 13.7 % (11.0-16.0); White Blood Count 11.2 X10*3/uL (4.8-10.8)
[2021-09-30 06:49] LABS: Alanine Aminotransferase 43 U/L (0-31); Albumin Level 3.4 g/dL (3.5-5.0); Alkaline Phosphatase 80 U/L (39-117); Anion Gap 10 (12-20); Aspartate Amino Transferase 50 U/L (5-31); Bilirubin Direct 0.3 mg/dL (0.0-0.5); Bilirubin Total 0.6 mg/dL (0.0-1.0); Blood Urea Nitrogen 7 mg/dL (9-16); Calcium 8.3 mg/dL (8.4-10.2); Carbon Dioxide 33 mmol/L (22-29); Chloride 100 mmol/L (96-108); Estimated Glomerular Filt Rate > 60; Glucose Random 196 mg/dL (60-115); Potassium 3.7 mmol/L (3.3-5.1); Sodium 139 mmol/L (135-145); Total Protein 6.3 g/dL (6.5-8.0)
[2021-09-30 07:37] LABS: Glucose, Whole Blood 180 mg/dL (60-115)
[2021-09-30] MEDS: 0.9 % Sodium Chloride Flush 3 ML SYRINGE IVFLUSH ×3 (08:27→20:52)
[2021-09-30] MEDS: Insulin Lispro 100 UNIT/ML 3 ML VIAL SUBCUT ×4 (08:27→20:51)
[2021-09-30] MEDS: Dabigatran Etexilate Mesylate 150 MG CAPSULE PO ×2 (08:28→20:50)
[2021-09-30] MEDS: Escitalopram Oxalate 10 MG TABLET PO (08:28)
[2021-09-30] MEDS: amLODIPine Besylate 10 MG TABLET PO (08:28)
[2021-09-30] MEDS: Furosemide 20 MG TABLET PO (08:28)
[2021-09-30 11:31] LABS: Glucose, Whole Blood 178 mg/dL (60-115)
[2021-09-30] MEDS: Metoprolol Tartrate 25 MG TABLET PO ×2 (12:46→20:50)
[2021-09-30 12:48] LABS: Magnesium 1.7 mg/dL (1.6-2.6)
--- NOTE | 2021-09-30 14:07 | HO.PM.IMPN ---
Subjective Subjective Date of Service: 09/30/21 Interval History: the patient was seen and evaluated this morning Laying in bed, more alert and interactive today but still answer with 1 or 2 word sentences Unable to provide any meaningful answers but follow some basic commands No reported other overnight events. Review of Systems Unable to obtain given patient confusion but denies any pain Physical Exam Vital Signs: Vital Signs: Last Vital Signs Temp 96.6 F L 09/30/21 11:17 Pulse 129 H 09/30/21 11:17 Resp 20 09/30/21 11:17 BP 129/66 09/30/21 12:27 Pulse Ox 96 09/30/21 11:17 Oxygen Flow Rate 5 09/28/21 16:04 BMI result Body Mass Index 35.5 Const: Other: Appearance: Alert , interactive but still confused, No acute distress, Eyes: Pinpoint pupils, Pupils equal, round and reactive to light. Neck: Normal inspection. Neck supple. CVS: Normal heart rate and rhythm. Pulses normal. Respiratory: No respiratory distress. Breath sounds normal. No Wheezing. No rales Abdomen: Soft and nontender. No rigidity. Skin: Skin warm and dry. Normal skin color. Extremities: No lower extremity edema. No Lacerations. Neuro: Alert, disoriented, move her upper extremities but not following any commands to do a decent cranial nerve or lower extremity evaluation Objective Data Active Medications Acetaminophen (Acetaminophen 325 Mg Tablet) 650 mg PO Q6H PRN PRN Reason: Pain, Mild (Pain Scale 1-3) Albuterol Sulfate (Albuterol Sulfate 90 Mcg 8 Gm Inhaler) 2 puff INHALE Q6H PRN PRN Reason: Shortness Of Breath Or Wheezing Amlodipine Besylate (Amlodipine Besylate 10 Mg Tablet) 10 mg PO DAILY [facility]; Protocol Last Admin: 09/30/21 08:28 Dose: 10 mg Documented by: ANTELMO Clonazepam (Clonazepam 1 Mg Tablet) 1 mg PO BID [facility] Last Admin: 09/29/21 09:53 Dose: Not Given Documented by: KARLA Non-Admin Reason: Patient Condition Contraindication Dabigatran (Dabigatran Etexilate Mesylate 150 Mg Capsule) 150 mg PO BID [facility] Last Admin: 09/30/21 08:28 Dose: 150 mg Documented by: ANTELMO Dextrose (Dextrose 50 % 25 Gm/50 Ml Syringe) 25 gm IVPUSH Q15M PRN; Protocol PRN Reason: per Hypoglycemia Standing Ord. Escitalopram Oxalate (Escitalopram Oxalate 10 Mg Tablet) 10 mg PO DAILY [facility] Last Admin: 09/30/21 08:28 Dose: 10 mg Documented by: ANTELMO Furosemide (Furosemide 20 Mg Tablet) 20 mg PO DAILY [facility]; Protocol Last Admin: 09/30/21 08:28 Dose: 20 mg Documented by: ANTELMO Glucose (Glucose Gel 15 Gm Gel..Gram.) 15 gm PO Q15M PRN; Protocol PRN Reason: per Hypoglycemia Standing Ord. Ceftriaxone Sodium 1 gm/ (Sodium Chloride) 50 mls @ 100 mls/hr IV Q24H [facility] Last Infusion: 09/29/21 21:10 Dose: 0 mls/hr Documented by: KEITH Insulin Human Lispro (Insulin Lispro 100 Unit/Ml 3 Ml Vial) 0 unit SUBCUT QIDACHS [facility]; Protocol Last Admin: 09/30/21 12:01 Dose: 2 unit Documented by: ATNELMO Melatonin (Melatonin 3 Mg Tablet) 6 mg PO BEDTIME PRN PRN Reason: Insomnia Metoprolol Tartrate (Metoprolol Tartrate 25 Mg Tablet) 25 mg PO BID [facility]; Protocol Last Admin: 09/30/21 12:46 Dose: 25 mg Documented by: ANTELMO Pharmacy Consult (Consult Rx Perform Med Rec) 1 each MISCELLANE ONCE PRN PRN Reason: Consult order Pregabalin (Pregabalin 100 Mg Capsule) 100 mg PO TID [facility] Last Admin: 09/29/21 09:53 Dose: Not Given Documented by: KARLA Non-Admin Reason: Patient Condition Contraindication Senna (Sennosides 8.6 Mg Tablet) 17.2 mg PO BEDTIME PRN PRN Reason: Constipation Sodium Chloride (0.9 % Sodium Chloride Flush 3 Ml Syringe) 3 ml IVFLUSH QSHIFT [facility] Last Admin: 09/30/21 08:27 Dose: 3 ml Documented by: ANTELMO Labs CBC & Chem 7: 09/30/21 05:40 09/30/21 05:40 Labs: Laboratory Results - last 24 hr 09/29/21 09/29/21 09/29/21 05:28 16:08 20:09 MCV MCH MCHC RDW Plt Count MPV Absolute Nucleated RBC Nucleated RBC % (auto) Anion Gap Estim Creat Clear Calc Estimated GFR POC Glucose 178 H 153 H Random Glucose Calcium Magnesium Total Bilirubin Direct Bilirubin AST ALT Alkaline Phosphatase Total Creatine Kinase Total Protein Albumin Hepatitis A IgM Ab Nonreactive 09/30/21 09/30/21 09/30/21 05:40 05:40 05:40 MCV 98.1 H MCH 30.7 MCHC 31.4 RDW 13.7 Plt Count 206 MPV 9.6 Absolute Nucleated RBC 0.000 Nucleated RBC % (auto) 0.0 Anion Gap 10 L Estim Creat Clear Calc 100.0 Estimated GFR > 60 POC Glucose Random Glucose 196 H Calcium 8.3 L Magnesium 1.7 Total Bilirubin 0.6 Direct Bilirubin 0.3 AST 50 H D ALT 43 H Alkaline Phosphatase 80 D Total Creatine Kinase 1271 H Total Protein 6.3 L D Albumin 3.4 L D Hepatitis A IgM Ab 09/30/21 09/30/21 07:19 11:18 MCV MCH MCHC RDW Plt Count MPV Absolute Nucleated RBC Nucleated RBC % (auto) Anion Gap Estim Creat Clear Calc Estimated GFR POC Glucose 180 H 178 H Random Glucose Calcium Magnesium Total Bilirubin Direct Bilirubin AST ALT Alkaline Phosphatase Total Creatine Kinase Total Protein Albumin Hepatitis A IgM Ab Microbiology Microbiology Results: Microbiology 09/28/21 19:18 Urine Culture - Final Urine clean catch - Clean Catch Midstream Escherichia coli 09/28/21 17:20 Blood Culture - Preliminary Blood - Venous No growth after 24 hours. 09/28/21 17:08 Blood Culture - Preliminary Blood - Venous No growth after 24 hours. Assessment and Plan (1) Acute metabolic encephalopathy: Status: Acute (2) Acute kidney injury: Status: Acute (3) Acute UTI: Status: Acute Plan 76-year-old female with a past medical history of diabetes, CAD, diastolic CHF, AFib on Pradaxa, osteoarthritis, history of breast cancer presented to the hospital today with a chief complaint of unresponsive episode.? Metabolic encephalopathy Improving, likely secondary to UTI CT head showed no acute findings. U tox for positive for opiate, fentanyl, benzos.? Concern if she took extra clonazepam, received a dose of flumazenil Monitor on telemetry ANABELL Likely prerenal secondary to rhabdo Creatinine improved to 1 from 1.8 admission DC IV fluids. Nephrology input appreciated Rhabdomyolysis CPK trending down Discontinue IVF, encourage p.o. intake Mild transaminitis Likely secondary to rhabdomyolysis.? Monitor liver enzymes.? Negative acute hepatitis panel. Elevated troponins:? no reported chest pain or EKG changes to suggest ACS Likely secondary to rhabdomyolysis continue Pradaxa.? Follow-up troponin plateaued: [id number]. Within normal Echocardiogram and mild increase on LV wall thickness cardiology notified and consulted UTI? c/w ceftriaxone Urine growing pansensitive E coli pending blood culture History of a diastolic CHF:? Patient is being given gentle IV fluids for rhabdomyolysis.??Monitor for signs of fluid overload.? Hold home Lasix for now. History of paroxysmal AFib:? Patient on Pradaxa.? History of depression: Continue home escitalopram History of anxiety:? Will?resume Klonopin from tomorrow if pt is more alert and awake. History of diabetes:? Patient on Lantus 30 units metformin at home--Hold now.? Will keep the patient on insulin sliding scale.? Monitor fingerstick glucose and adjust as needed. History of Hyperlipidemia:?Hold Statin for now DVT prophylaxis:? Patient on Pradaxa Code status: Full code.? Confirmed with the patient's son Yonis The patient will need to stay in the hospital overnight to continue evaluation for encephalopathy and treatment of acute kidney injury and UTI given high chance of decomposition for safe discharge planning. Quality Stroke Does the patient have a stroke diagnosis?: No VTE Prior VTE?: No VTE Risk Level:: Medical - moderate - high VTE Device Contraindication: Treatment Not Indicated VTE Drug Contraindication: N/A - Med Ordered
[2021-09-30 16:07] LABS: Glucose, Whole Blood 195 mg/dL (60-115)
[2021-09-30 20:22] LABS: Glucose, Whole Blood 162 mg/dL (60-115)
[2021-09-30] MEDS: Melatonin 3 MG TABLET 6 MG PO (20:50)
[2021-09-30] MEDS: cefTRIAXone sodium 1 GM in 0.9 % Sodium Chloride 50 ML IV (20:52)
[2021-10-01 03:32] VITALS: BP 153/89; PULSE 99; RESP 18; TEMP 36.9; O2SAT 93
[2021-10-01 06:57] LABS: Hematocrit 31.9 % (37.0-47.0); Hemoglobin 10.2 g/dl (12.0-16.0); Mean Corpuscular Hemoglobin 30.3 pg (27.0-33.0); Mean Corpuscular Volume 94.7 fL (80.0-98.0); Mean Platelet Volume 9.5 fL (9.4-12.3); Platelet Count 245 X10*3/uL (160-400); Red Blood Count 3.37 X10*6/uL (4.20-5.50); Red Cell Distribution Width 13.2 % (11.0-16.0); White Blood Count 11.5 X10*3/uL (4.8-10.8)
[2021-10-01 07:14] LABS: Anion Gap 16 (12-20); Blood Urea Nitrogen 8 mg/dL (9-16); Calcium 8.6 mg/dL (8.4-10.2); Carbon Dioxide 29 mmol/L (22-29); Chloride 95 mmol/L (96-108); Creatinine Clr Calc Pharmacy 103.2; Estimated Glomerular Filt Rate > 60; Glucose Random 172 mg/dL (60-115); Potassium 3.5 mmol/L (3.3-5.1); Sodium 136 mmol/L (135-145)
[2021-10-01 07:21] LABS: Glucose, Whole Blood 153 mg/dL (60-115)
[2021-10-01 07:38] VITALS: BP 125/93; PULSE 117; RESP 20; TEMP 36.8; O2SAT 93
[2021-10-01] MEDS: amLODIPine Besylate 10 MG TABLET PO (08:31)
[2021-10-01] MEDS: Escitalopram Oxalate 10 MG TABLET PO (08:31)
[2021-10-01] MEDS: Metoprolol Tartrate 25 MG TABLET PO ×2 (08:31→21:29)
[2021-10-01] MEDS: Furosemide 20 MG TABLET PO (08:31)
[2021-10-01] MEDS: Insulin Lispro 100 UNIT/ML 3 ML VIAL SUBCUT ×4 (08:31→21:45)
[2021-10-01] MEDS: Dabigatran Etexilate Mesylate 150 MG CAPSULE PO (08:31)
[2021-10-01] MEDS: 0.9 % Sodium Chloride Flush 3 ML SYRINGE IVFLUSH (08:32)
[2021-10-01] MEDS: clonazePAM 1 MG TABLET PO ×2 (10:29→21:29)
--- NOTE | 2021-10-01 11:09 | PC.NURSE ---
Patient became restless, HR elevated, diaphoretic and getting out of bed, very confused. Notified provider of behavioral changes, also notified nursing supervisor irrigation and requested 1:1 sitter. Patient received one dose of Clonazepam,
[2021-10-01 11:28] LABS: Glucose, Whole Blood 226 mg/dL (60-115)
[2021-10-01 11:41] VITALS: BP 132/86; PULSE 128; RESP 20; TEMP 36.7; O2SAT 95
--- NOTE | 2021-10-01 11:59 | ECG_ITS ---
Test Reason : TACHYCARDIA Blood Pressure : / mmHG Vent. Rate : 128 BPM Atrial Rate : 000 BPM P-R Int : 000 ms QRS Dur : 086 ms QT Int : 302 ms P-R-T Axes : 000 -30 222 degrees QTc Int : 440 ms Atrial fibrillation with rapid ventricular response with premature ventricular or aberrantly conducted complexes Left axis deviation ST & T wave abnormality, consider lateral ischemia Abnormal ECG When compared with ECG of 28-SEP-2021 18:14, Atrial fibrillation has replaced Sinus rhythm Vent. rate has increased BY 53 BPM Nonspecific T wave abnormality, worse in Inferior leads T wave inversion now evident in Lateral leads Referred By: Katie Moreno Electronically Signed By:Edison Maddox
--- NOTE | 2021-10-01 12:33 | P.PNIM_ITS ---
Subjective Subjective Date of Service: 10/01/21 Interval History: seen and examined this morning follow up for encephalopathy initially appeared calm with improving mental status, was able to answer some simple yes or no questions; denied any specific complaints but unclear how reliable of a historian she is a short time later nurse called that patient appeared anxious, agitated, was t achycardic and sweaty Review of Systems Review of Systems: Yes Unobtainable due to mental status Neurologic Neurologic: Reports confusion Psychiatric Psychiatric: Reports confusion Physical Exam Vital Signs: Vital Signs: Last Vital Signs Temp 98.0 F 10/01/21 11:41 Pulse 128 H 10/01/21 11:41 Resp 20 10/01/21 11:41 BP 132/86 10/01/21 11:41 Pulse Ox 95 10/01/21 11:41 Oxygen Flow Rate 5 09/28/21 16:04 BMI result Body Mass Index 35.5 Const: General: comfortable, alert, awake and confusion Nutritional Appearance: overweight Orientation/consciousness: confusion Resp: Effort & Inspection: normal respiratory effort Auscultation: clear to auscultation bilaterally Cardio: Rate: tachycardic Heart sounds: S1 normal heart sound present and S2 normal heart sound present GI: Palpation (GI): Soft to palpation and nontender Neuro: General: confusion Extrem: General: Yes no pedal edema Objective Data Active Medications Acetaminophen (Acetaminophen 325 Mg Tablet) 650 mg PO Q6H PRN PRN Reason: Pain, Mild (Pain Scale 1-3) Albuterol Sulfate (Albuterol Sulfate 90 Mcg 8 Gm Inhaler) 2 puff INHALE Q6H PRN PRN Reason: Shortness Of Breath Or Wheezing Amlodipine Besylate (Amlodipine Besylate 10 Mg Tablet) 10 mg PO DAILY [facility]; Protocol Last Admin: 10/01/21 08:31 Dose: 10 mg Documented by: JACQUES Clonazepam (Clonazepam 1 Mg Tablet) 1 mg PO BID [facility] Last Admin: 10/01/21 10:29 Dose: 1 mg Documented by: BRODigna Dabigatran (Dabigatran Etexilate Mesylate 150 Mg Capsule) 150 mg PO BID [facility] Last Admin: 10/01/21 08:31 Dose: 150 mg Documented by: JACQUES Dextrose (Dextrose 50 % 25 Gm/50 Ml Syringe) 25 gm IVPUSH Q15M PRN; Protocol PRN Reason: per Hypoglycemia Standing Ord. Escitalopram Oxalate (Escitalopram Oxalate 10 Mg Tablet) 10 mg PO DAILY [facility] Last Admin: 10/01/21 08:31 Dose: 10 mg Documented by: JACQUES Furosemide (Furosemide 20 Mg Tablet) 20 mg PO DAILY [facility]; Protocol Last Admin: 10/01/21 08:31 Dose: 20 mg Documented by: JACQUES Glucose (Glucose Gel 15 Gm Gel..Gram.) 15 gm PO Q15M PRN; Protocol PRN Reason: per Hypoglycemia Standing Ord. Ceftriaxone Sodium 1 gm/ (Sodium Chloride) 50 mls @ 100 mls/hr IV Q24H [facility] Last Infusion: 09/30/21 21:40 Dose: 0 mls/hr Documented by: HAROON Insulin Human Lispro (Insulin Lispro 100 Unit/Ml 3 Ml Vial) 0 unit SUBCUT QIDACHS [facility]; Protocol Last Admin: 10/01/21 08:31 Dose: 2 unit Documented by: JACQUES Melatonin (Melatonin 3 Mg Tablet) 6 mg PO BEDTIME PRN PRN Reason: Insomnia Last Admin: 09/30/21 20:50 Dose: 6 mg Documented by: HAROON Metoprolol Tartrate (Metoprolol Tartrate 25 Mg Tablet) 25 mg PO BID [facility]; Protocol Last Admin: 10/01/21 08:31 Dose: 25 mg Documented by: JACQUES Pharmacy Consult (Consult Rx Perform Med Rec) 1 each MISCELLANE ONCE PRN PRN Reason: Consult order Pregabalin (Pregabalin 100 Mg Capsule) 100 mg PO TID [facility] Last Admin: 09/29/21 09:53 Dose: Not Given Documented by: KARLA Non-Admin Reason: Patient Condition Contraindication Senna (Sennosides 8.6 Mg Tablet) 17.2 mg PO BEDTIME PRN PRN Reason: Constipation Sodium Chloride (0.9 % Sodium Chloride Flush 3 Ml Syringe) 3 ml IVFLUSH QSHIFT [facility] Last Admin: 10/01/21 08:32 Dose: 3 ml Documented by: JACQUES Labs CBC & Chem 7: 10/01/21 06:14 10/01/21 06:14 Labs: Laboratory Results - last 24 hr 09/30/21 09/30/21 09/30/21 05:40 16:04 20:19 MCV MCH MCHC RDW Plt Count MPV Absolute Nucleated RBC Nucleated RBC % (auto) Anion Gap Estim Creat Clear Calc Estimated GFR POC Glucose 195 H 162 H Random Glucose Calcium Magnesium 1.7 Total Creatine Kinase 10/01/21 10/01/21 10/01/21 06:14 06:14 07:17 MCV 94.7 MCH 30.3 MCHC 32.0 RDW 13.2 Plt Count 245 MPV 9.5 Absolute Nucleated RBC 0.000 Nucleated RBC % (auto) 0.0 Anion Gap 16 Estim Creat Clear Calc 103.2 Estimated GFR > 60 POC Glucose 153 H Random Glucose 172 H Calcium 8.6 Magnesium Total Creatine Kinase 484 H D 10/01/21 11:23 MCV MCH MCHC RDW Plt Count MPV Absolute Nucleated RBC Nucleated RBC % (auto) Anion Gap Estim Creat Clear Calc Estimated GFR POC Glucose 226 H Random Glucose Calcium Magnesium Total Creatine Kinase Microbiology Microbiology Results: Microbiology 09/28/21 17:08 Blood Culture - Preliminary Blood - Venous No growth after 48 hours. 09/28/21 17:20 Blood Culture - Preliminary Blood - Venous No growth after 48 hours. Assessment and Plan (1) Acute metabolic encephalopathy: Status: Acute (2) Afib: Status: Acute Plan 76-year-old female with a past medical history of diabetes, CAD, diastolic CHF, AFib on Pradaxa, osteoarthritis, history of breast cancer presented to the hospital today with a chief complaint of unresponsive episode.? afib rvr History of paroxysmal AFib:? not on rate control at baseline, started on metoprolol during this admission Patient on Pradaxa for AC HR now uncontrolled, will start cardizem Metabolic encephalopathy possibly secondary to UTI CT head showed no acute findings. U tox for positive for opiate, fentanyl, benzos.? Concern if she took extra clonazepam, received a dose of flumazenil 09/29 Monitor on telemetry May now be entering withdrawal - klonopin and lyrica have been on hold since admission - will resume UTI? Urine growing pansensitive E coli continue IV ceftriaxone blood cultures negative to date ANABELL Likely prerenal secondary to rhabdo resolved with IVF Nephrology input appreciated Rhabdomyolysis CPK trending down with IVF Discontinue IVF, encourage p.o. intake Mild transaminitis Likely secondary to rhabdomyolysis.? Negative acute hepatitis panel. b/l DVT noted on venous duplex on pradaxa at baseline for afib VQ scan negative for PE Elevated troponins:? no reported chest pain or EKG changes to suggest ACS Likely secondary to rhabdomyolysis continue Pradaxa.? Follow-up troponin plateaued: 0521-8365. Echocardiogram and mild increase on LV wall thickness, no WMA seen by cardiology- does not feel that this represents ACS HTN BP controlled will d/c norvasc to start cardizem to rapid afib History of a diastolic CHF:? continue home lasix History of depression: Continue home escitalopram History of anxiety:? Will?resume Klonopin due to concern for withdrawal History of diabetes:? Patient on Lantus 30 units metformin at home--Hold now.? Will keep the patient on insulin sliding scale.? Monitor fingerstick glucose and adjust as needed. History of Hyperlipidemia:?Hold Statin for now DVT prophylaxis:? Patient on Pradaxa Code status: Full code.? Confirmed with the patient's son Yonis attending: dr. boyer The patient will need to stay in the hospital overnight to continue evaluation for encephalopathy and treatment of acute kidney injury and UTI and afib with RVR given high chance of decomposition for safe discharge planning. Quality Stroke Does the patient have a stroke diagnosis?: No VTE Prior VTE?: No VTE Risk Level:: Medical - moderate - high VTE Device Contraindication: Treatment Not Indicated VTE Drug Contraindication: N/A - Med Ordered
[2021-10-01] MEDS: dilTIAZem HCL 50 MG/10 ML VIAL 10 MG IVPUSH (13:43)
[2021-10-01] MEDS: dilTIAZem HCL 125 MG in 0.9 % Sodium Chloride 100 ML 10 MG IVCONT (14:21)
--- NOTE | 2021-10-01 15:19 | PM.HEMONCCN ---
Subjective - Subjective Chief complaint: Consult for: Bilateral lower extremity DVT Patient: new to practice Consult date: 10/01/21 Primary Care Provider: Tim Ding MD Medical Summary: DIAGNOSIS: B/L LATERAL LOWER EXTREMITY DVT. HPI - Consult Narrative Reason for consult: consult for: Bilateral lower extremity DVT. Narrative: Amarilys Badillo is a pleasant 76 year old lady who had presented to the hospital on 09/28, with a chief complaint of unresponsive episode. Patient was drowsy, followed simple commands and would fall back to sleep. Son mentioned that when he found her, she was sleeping on the bed. Two hours later he came back to the house to check on her and she was found on the floor; not responding. He called EMS and sent to the ER for further evaluation. Patient's son also mentioned that patient was doing completely fine, the day before. He is not unclear if the patient took an extra dose of Klonopin tablets; also unclear if she has taken any illicit drugs. Mentioned that she has similar presentations in the past when she has urinary tract infection. Denies patient having any fevers, denies any abdominal pain, nor chest pain. When the EMS came in, POC glucose was noted to be in 150s. Review of all other systems is negative except mentioned above ER course: Patient noted to be altered and drowsy; also complained of shortness of breath; patient denied any chest pain to the ER team. EKG was nonischemic. Troponin elevated to 33 0s; cardiology was notified who mentioned that elevated troponin likely related to rhabdomyolysis. Patient's CPK was noted to be 2400. Patient also noted to be in ANABLEL with creatinine of 1.7 from baseline of 0.7. Patient was given IV fluids. Urinalysis was abnormal consistent with UTI-given ceftriaxone; CT head showed no acute findings; Her D-dimer was elevated to 2400: V/Q scan was done which showed no evidence of pulmonary embolism. Ultrasound of the lower extremities: There is deep vein thrombosis in the thigh bilaterally. Past medical history: 1. Hypertension, hyperlipidemia, diabetes, CAD, 2. Diastolic CHF, AFib on Pradaxa, osteoarthritis, 3. History of breast cancer, 4. Anxiety, depression, 5.Degenerative spine disease-chronic back pain, 6. Asthma Review of Systems - Constitutional Reports system reviewed and no additional complaints, except as documented, Reports weakness, Reports weight loss - Eyes Reports system reviewed and no additional complaints, except as documented - ENT Reports system reviewed and no additional complaints, except as documented - Cardiovascular Reports system reviewed and no additional complaints, except as documented - Respiratory Reports no additional respiratory complaints - Gastrointestinal Reports system reviewed and no additional complaints, except as documented - Genitourinary Reports no additional female genitourinary complaints - Musculoskeletal Reports system reviewed and no additional complaints, except as documented - Integumentary/Breasts Skin/Breast: Reports no additional skin complaints - Neurologic Reports confusion - Psychiatric Reports system reviewed and no additional complaints, except as documented - Endocrine Reports no additional endocrine complaints - Hematologic/Lymphatic Reports system reviewed and no additional complaints, except as documented - Allergic/Immunologic Reports system reviewed and no additional complaints, except as documented Oncology Screenings - ECOG Performance Status ECOG Performance Status: 1 [facility] Medical History: Medical History (Last Reviewed 10/05/21 @ 14:44 by Darcy Mcclelland, PT) Afib Hypercholesterolemia Lumbar degenerative disc disease Recurrent UTI Type 2 diabetes mellitus with hyperglycemia Functional capacity: uses cane/walker Patient : No Family History: Family History (Last Updated 09/10/21 @ 14:40 by Katie Mccullough CMA) Father Diabetes Heart disease Mother Heart disease Son Opiate addiction Surgical History: Surgical History (Last Reviewed 10/05/21 @ 14:44 by Darcy Mcclelland, PT) History of lumpectomy of right breast History of tubal ligation Social History: Social History (Last Reviewed 01/10/21 @ 11:46 by Quoc Olson MD) Living Situation History: Household Members: Children Household Members Other:: Brought to ER by son with whom she lives Housing: House Do you presently have visiting nurse or other home services: Do you presently have visiting nurse or other home services comment: unknown Alcohol History: Unable to assess alcohol history related to: Unknown Tobacco History: Patient Tobacco Use Status: Never used Tobacco e-Cigarette/Vaping Use: Never Used Second Hand Smoke Exposure: No Occupation Assessmet: service: No Current occupational status: retired Home Medications and Allergies Current Medications: Current Medications Acetaminophen (Acetaminophen 325 Mg Tablet) 650 mg PO Q6H PRN PRN Reason: Pain, Mild (Pain Scale 1-3) Albuterol Sulfate (Albuterol Sulfate 90 Mcg 8 Gm Inhaler) 2 puff INHALE Q6H PRN PRN Reason: Shortness Of Breath Or Wheezing Clonazepam (Clonazepam 1 Mg Tablet) 1 mg PO BID [facility] Last Admin: 10/01/21 10:29 Dose: 1 mg Documented by: Dabigatran (Dabigatran Etexilate Mesylate 150 Mg Capsule) 150 mg PO BID [facility] Last Admin: 10/01/21 08:31 Dose: 150 mg Documented by: Dextrose (Dextrose 50 % 25 Gm/50 Ml Syringe) 25 gm IVPUSH Q15M PRN; Protocol PRN Reason: per Hypoglycemia Standing Ord. Escitalopram Oxalate (Escitalopram Oxalate 10 Mg Tablet) 10 mg PO DAILY [facility] Last Admin: 10/01/21 08:31 Dose: 10 mg Documented by: Furosemide (Furosemide 20 Mg Tablet) 20 mg PO DAILY [facility]; Protocol Last Admin: 10/01/21 08:31 Dose: 20 mg Documented by: Glucose (Glucose Gel 15 Gm Gel..Gram.) 15 gm PO Q15M PRN; Protocol PRN Reason: per Hypoglycemia Standing Ord. Ceftriaxone Sodium 1 gm/ (Sodium Chloride) 50 mls @ 100 mls/hr IV Q24H [facility] Last Infusion: 09/30/21 21:40 Dose: Infused Documented by: Diltiazem HCl 125 mg/ Sodium (Chloride) 125 mls @ 0 mls/hr IVCONT .Q0M [facility]; Protocol Last Admin: 10/01/21 14:21 Dose: 10 mg/hr, 10 mls/hr Documented by: Insulin Human Lispro (Insulin Lispro 100 Unit/Ml 3 Ml Vial) 0 unit SUBCUT QIDACHS [facility]; Protocol Last Admin: 10/01/21 12:35 Dose: 2 unit Documented by: Melatonin (Melatonin 3 Mg Tablet) 6 mg PO BEDTIME PRN PRN Reason: Insomnia Last Admin: 09/30/21 20:50 Dose: 6 mg Documented by: Metoprolol Tartrate (Metoprolol Tartrate 25 Mg Tablet) 25 mg PO BID [facility]; Protocol Last Admin: 10/01/21 08:31 Dose: 25 mg Documented by: Pharmacy Consult (Consult Rx Perform Med Rec) 1 each MISCELLANE ONCE PRN PRN Reason: Consult order Pregabalin (Pregabalin 100 Mg Capsule) 100 mg PO TID [facility] Last Admin: 09/29/21 09:53 Dose: Not Given Documented by: Senna (Sennosides 8.6 Mg Tablet) 17.2 mg PO BEDTIME PRN PRN Reason: Constipation Sodium Chloride (0.9 % Sodium Chloride Flush 3 Ml Syringe) 3 ml IVFLUSH QSHIFT [facility]ANEL[facility] Last Admin: 10/01/21 08:32 Dose: 3 ml Documented by: Home Medications Medication Instructions Recorded Confirmed Type albuterol sulfate 90 mcg/actuation 2 puff INHALATION Q6H PRN 06/18/20 09/28/21 History aerosol inhaler Allergies Allergy/AdvReac Type Severity Reaction Status Date / Time sulfamethoxazole Allergy Intermediate rash face Verified 09/10/21 14:38 [From Bactrim] trimethoprim [From Bactrim] Allergy Intermediate rash face Verified 09/10/21 14:38 amoxicillin [Augmentin] Allergy Unknown Diarrhea Verified 09/10/21 14:38 clavulanic acid [Augmentin] Allergy Unknown Diarrhea Verified 09/10/21 14:38 Iodinated Contrast Media Allergy Unknown THROAT Verified 09/10/21 14:38 [IV Dye, Iodine Containing CLOSES Contrast ] UP/SWELLIN iodine [IODINE] Allergy Unknown ANAPHYLAXIS Verified 09/10/21 14:38 lisinopril [LISINOPRIL] Allergy Unknown UNKNOWN, Verified 09/10/21 14:38 cough, cough prednisone [PREDNISONE] Allergy Unknown INCREASE Verified 09/10/21 14:38 BLOOD PRESSURE quetiapine [From SEROQUEL] Allergy Unknown SWELLING Verified 09/10/21 14:38 X-ray dye Allergy Unknown Facial Verified 09/10/21 14:38 swelling/ trouble breathing apixaban [From Eliquis] AdvReac Intermediate Diarrhea Verified 09/10/21 14:38 Physical Exam Vital signs: Vital Signs Temp 98.0 F 10/01/21 11:41 Pulse 128 H 10/01/21 11:41 Resp 20 10/01/21 11:41 BP 132/86 10/01/21 11:41 Pulse Ox 95 10/01/21 11:41 Intake & Output 09/30/21 10/01/21 10/01/21 18:59 06:59 18:59 Intake Total 1060 / 1290 230 / 1290 380 / 380 Output Total 500 / 1200 700 / 1200 Balance 560 / 90 -470 / 90 380 / 380 Urine Output (Average ml/kg/hr) 0.38 0.53 0.53 Intake: Intake, Oral Amount 60 / 240 180 / 240 380 / 380 Intake, IV Amount 1000 / 1050 50 / 1050 cefTRIAXone sodium 1 gm In 0.9 50 / 50 % Sodium Chloride 50 ml @ 100 mls/hr IV Q24H [facility] Rx#: [id number] Dextrose 5 % and 0.9 % NaCl 1, 1000 / 1000 000 ml @ 100 mls/hr IVCONT . Q10H [facility] Rx#:[id number] Output: Output, Urine Amount 500 / 1200 700 / 1200 Other: Breakfast % Eaten 75% Lunch % Eaten 25% 50% Dinner % Eaten 50% Number of Incontinent Voids 2 1 2 Number of Bowel Movements 1 1 Urine purewick purewick Urine Color Yellow Last Bowel Movement 10/01/21 Stool Incontinent Incontinent Stool Amount Small Large Stool Color Brown Brown Stool Consistency Soft Weight 109.2 kg - Constitutional Present: moderate distress - Routine HEENT Exam Head: Present: normal inspection ENT: Present: mucous membranes dry - Routine Neck Exam Present: supple - Routine Respiratory Exam Present: CTAB - Routine Cardiovascular Exam Cardiovascular: Present: RRR, S1, S2 - Routine Abdominal Exam Present: normal bowel sounds, nontender - Routine Extremities Exam Present: tenderness - Routine Skin Exam Present: intact Hem/Onc Consult Result - Labs CBC & Chem 7: 10/03/21 05:56 10/04/21 04:44 Labs: Short CBC 10/01/21 Range/Units 06:14 WBC 11.5 H (4.8-10.8) X10*3/uL Hgb 10.2 L (12.0-16.0) g/dl Hct 31.9 L (37.0-47.0) % Plt Count 245 (160-400) X10*3/uL BMP 10/01/21 06:14 Sodium 136 Potassium 3.5 Chloride 95 L Carbon Dioxide 29 BUN 8 L Creatinine 0.62 Calcium 8.6 Cardiac Enzymes 10/01/21 Range/Units 06:14 Total Creatine Kinase 484 H D (26-140) U/L Assessment and Plan Patient Active problem list reviewed?: Yes (1) DVT, bilateral lower limbs Status: Acute Assessment and plan: This is a 76-year-old lady who was brought in after having been found unresponsive at home. She was noted to have UTI and rhabdomyolysis. She is being treated for both. D-dimer was noted to be elevated. V/Q scan was negative however ultrasound of the lower extremities revealed bilateral DVT. This is most likely related to her having been, on the floor, with prior sedentary lifestyle, in addition to the rhabdo. Her CPK is down to 484 from baseline of 2414. Her kidney function was off. Creatinine was 1.78 baseline and now down to 0.62. She has been maintained on Pradaxa, for the atrial fibrillation. Since this episode occurred on Pradaxa, I would recommend switching her over to Lovenox 1 milligram/kilogram does, for the acute treatment. Can subsequently consider switching to a different NOAC. PLAN: To switch over to Lovenox for the acute treatment of DVT. Can use 100 mg subQ b.i.d. Next dose of Pradaxa due at 20:30. Will substitute for that time. Thank you, Cc: Tiffanie. . - Time Spent With Patient Time Spent with Patient (in minutes): 30
[2021-10-01 16:00] VITALS: BP 140/74; PULSE 98; RESP 18; TEMP 37.4
[2021-10-01] MEDS: Pregabalin 100 MG CAPSULE PO ×2 (16:19→21:29)
[2021-10-01 16:52] LABS: Glucose, Whole Blood 219 mg/dL (60-115)
[2021-10-01 20:00] VITALS: BP 139/74; PULSE 97; RESP 18; TEMP 37.9; O2SAT 95
[2021-10-01] MEDS: dilTIAZem HCL 125 MG in 0.9 % Sodium Chloride 100 ML 15 MG IVCONT (21:28)
[2021-10-01] MEDS: Enoxaparin Sodium 100 MG/ML SYRINGE SUBCUT (21:28)
[2021-10-01] MEDS: cefTRIAXone sodium 1 GM in 0.9 % Sodium Chloride 50 ML IV (21:28)
[2021-10-01] MEDS: Acetaminophen 325 MG TABLET 650 MG PO (21:29)
[2021-10-01 21:30] LABS: Glucose, Whole Blood 196 mg/dL (60-115)
[2021-10-01 23:31] VITALS: BP 137/70; PULSE 77; RESP 18; TEMP 36.5; O2SAT 96
[2021-10-02 03:17] VITALS: BP 148/67; RESP 18; TEMP 36.7; O2SAT 93
[2021-10-02 07:14] LABS: Glucose, Whole Blood 180 mg/dL (60-115)
[2021-10-02 07:28] LABS: Hematocrit 32.8 % (37.0-47.0); Hemoglobin 10.7 g/dl (12.0-16.0); Mean Corpuscular HGB Conc 32.6 g/dl (31.0-35.0); Mean Corpuscular Hemoglobin 30.7 pg (27.0-33.0); Mean Platelet Volume 9.6 fL (9.4-12.3); Platelet Count 257 X10*3/uL (160-400); Red Blood Count 3.49 X10*6/uL (4.20-5.50); Red Cell Distribution Width 13.7 % (11.0-16.0); White Blood Count 14.2 X10*3/uL (4.8-10.8)
[2021-10-02 07:36] VITALS: BP 129/67; PULSE 98; RESP 20; TEMP 37.1; O2SAT 98
[2021-10-02] MEDS: dilTIAZem HCL 125 MG in 0.9 % Sodium Chloride 100 ML 15 MG IVCONT (07:40)
[2021-10-02] MEDS: Enoxaparin Sodium 100 MG/ML SYRINGE SUBCUT ×2 (07:42→20:38)
[2021-10-02 07:51] LABS: Anion Gap 15 (12-20); Blood Urea Nitrogen 18 mg/dL (9-16); Calcium 8.2 mg/dL (8.4-10.2); Carbon Dioxide 29 mmol/L (22-29); Chloride 96 mmol/L (96-108); Creatinine Clr Calc Pharmacy 95.5; Estimated Glomerular Filt Rate > 60; Glucose Random 190 mg/dL (60-115); Potassium 3.3 mmol/L (3.3-5.1); Sodium 137 mmol/L (135-145)
[2021-10-02] MEDS: Insulin Lispro 100 UNIT/ML 3 ML VIAL SUBCUT ×4 (09:28→20:38)
[2021-10-02] MEDS: Furosemide 20 MG TABLET PO (09:28)
[2021-10-02] MEDS: Metoprolol Tartrate 25 MG TABLET PO ×3 (09:28→20:38)
[2021-10-02] MEDS: Escitalopram Oxalate 10 MG TABLET PO (09:28)
[2021-10-02 11:20] LABS: Glucose, Whole Blood 199 mg/dL (60-115)
[2021-10-02 12:00] VITALS: BP 120/58; PULSE 89; RESP 20; TEMP 36.5; O2SAT 98
--- NOTE | 2021-10-02 12:09 | HO.PM.IMPN ---
Subjective Subjective Date of Service: 10/02/21 Interval History: seen and examined this morning heart rate better controlled overnight Sleepy this morning unable to obtain ROS Review of Systems Review of Systems: Yes all other systems are reviewed and are negative and Unobtainable due to mental status Neurologic Neurologic: Reports confusion Psychiatric Psychiatric: Reports confusion Physical Exam Vital Signs: Vital Signs: Last Vital Signs Temp 98.8 F 10/02/21 07:36 Pulse 98 10/02/21 07:36 Resp 20 10/02/21 07:36 BP 129/67 10/02/21 07:36 Pulse Ox 98 10/02/21 07:36 Oxygen Flow Rate 5 09/28/21 16:04 BMI result Body Mass Index 35.5 Const: Other: awakens to verbal stimuli and following simple commands, but sleepy and still appears confused General: comfortable, confusion and lethargic; No no acute distress Nutritional Appearance: overweight Orientation/consciousness: confusion and lethargic Resp: Effort & Inspection: normal respiratory effort Auscultation: clear to auscultation bilaterally Cardio: Rate: regular rate Heart sounds: S1 normal heart sound present and S2 normal heart sound present GI: Palpation (GI): Soft to palpation and nontender Neuro: General: confusion Extrem: General: Yes no pedal edema Objective Data Active Medications Acetaminophen (Acetaminophen 325 Mg Tablet) 650 mg PO Q6H PRN PRN Reason: Pain, Mild (Pain Scale 1-3) Last Admin: 10/01/21 21:29 Dose: 650 mg Documented by: HAROON Albuterol Sulfate (Albuterol Sulfate 90 Mcg 8 Gm Inhaler) 2 puff INHALE Q6H PRN PRN Reason: Shortness Of Breath Or Wheezing Clonazepam (Clonazepam 1 Mg Tablet) 1 mg PO BID [facility] Last Admin: 10/01/21 21:29 Dose: 1 mg Documented by: HAROON Dextrose (Dextrose 50 % 25 Gm/50 Ml Syringe) 25 gm IVPUSH Q15M PRN; Protocol PRN Reason: per Hypoglycemia Standing Ord. Enoxaparin Sodium (Enoxaparin Sodium 100 Mg/Ml Syringe) 100 mg SUBCUT Q12H [facility] Last Admin: 10/02/21 07:42 Dose: 100 mg Documented by: LIEN Escitalopram Oxalate (Escitalopram Oxalate 10 Mg Tablet) 10 mg PO DAILY [facility] Last Admin: 10/02/21 09:28 Dose: 10 mg Documented by: LIEN Furosemide (Furosemide 20 Mg Tablet) 20 mg PO DAILY [facility]; Protocol Last Admin: 10/02/21 09:28 Dose: 20 mg Documented by: LIEN Glucose (Glucose Gel 15 Gm Gel..Gram.) 15 gm PO Q15M PRN; Protocol PRN Reason: per Hypoglycemia Standing Ord. Ceftriaxone Sodium 1 gm/ (Sodium Chloride) 50 mls @ 100 mls/hr IV Q24H [facility] Last Infusion: 10/01/21 22:49 Dose: 0 mls/hr Documented by: HAROON Diltiazem HCl 125 mg/ Sodium (Chloride) 125 mls @ 0 mls/hr IVCONT .Q0M [facility]; Protocol Last Admin: 10/02/21 07:40 Dose: 15 mg/hr, 15 mls/hr Documented by: LIEN Insulin Human Lispro (Insulin Lispro 100 Unit/Ml 3 Ml Vial) 0 unit SUBCUT QIDACHS [facility]; Protocol Last Admin: 10/02/21 11:37 Dose: 2 unit Documented by: LIEN Melatonin (Melatonin 3 Mg Tablet) 6 mg PO BEDTIME PRN PRN Reason: Insomnia Last Admin: 09/30/21 20:50 Dose: 6 mg Documented by: HAROON Metoprolol Tartrate (Metoprolol Tartrate 25 Mg Tablet) 25 mg PO Q6H [facility]; Protocol Pharmacy Consult (Consult Rx Perform Med Rec) 1 each MISCELLANE ONCE PRN PRN Reason: Consult order Pregabalin (Pregabalin 100 Mg Capsule) 100 mg PO TID [facility] Last Admin: 10/01/21 21:29 Dose: 100 mg Documented by: HAROON Senna (Sennosides 8.6 Mg Tablet) 17.2 mg PO BEDTIME PRN PRN Reason: Constipation Sodium Chloride (0.9 % Sodium Chloride Flush 3 Ml Syringe) 3 ml IVFLUSH QSHIFT [facility] Last Admin: 10/02/21 09:29 Dose: Not Given Documented by: LIEN Non-Admin Reason: IV Running Labs CBC & Chem 7: 10/02/21 06:52 10/02/21 06:52 Labs: Laboratory Results - last 24 hr 10/01/21 10/01/21 10/02/21 16:48 21:27 06:52 MCV 94.0 MCH 30.7 MCHC 32.6 RDW 13.7 Plt Count 257 MPV 9.6 Absolute Nucleated RBC 0.000 Nucleated RBC % (auto) 0.0 Anion Gap Estim Creat Clear Calc Estimated GFR POC Glucose 219 H 196 H Random Glucose Calcium 10/02/21 10/02/21 10/02/21 06:52 07:11 11:13 MCV MCH MCHC RDW Plt Count MPV Absolute Nucleated RBC Nucleated RBC % (auto) Anion Gap 15 Estim Creat Clear Calc 95.5 Estimated GFR > 60 POC Glucose 180 H 199 H Random Glucose 190 H Calcium 8.2 L Assessment and Plan (1) DVT, bilateral lower limbs: Status: Acute (2) Acute metabolic encephalopathy: Status: Acute Plan 76-year-old female with a past medical history of diabetes, CAD, diastolic CHF, AFib on Pradaxa, osteoarthritis, history of breast cancer presented to the hospital today with a chief complaint of unresponsive episode.? afib rvr History of paroxysmal AFib:? not on rate control at baseline, started on metoprolol during this admission went into afib rvr on 10/01 and started on diltiazem drip will change lopressor to q6h and wean diltiazem drip on pradaxa for AC at baseline, changed to therapeutic Lovenox due to DVT Metabolic encephalopathy possibly secondary to UTI CT head showed no acute findings. U tox for positive for opiate, fentanyl, benzos.? Concern if she took extra clonazepam, received a dose of flumazenil 09/29 Episode on agitation/restlessness 10/01 concern over benzo withdrawal - klonopin and lyrica had been on hold since admission - resumed. Given lethargy today, will place back on hold as agitation may have been caused by afib RVR Monitor on telemetry Will obtain neurology consult b/l DVT noted on venous duplex on admission on pradaxa at baseline for afib VQ scan negative for PE on admission seen by hematology - changed to therapeutic lovenox for now may be able to be changed to alternative NOAC on d/c UTI? Urine growing pansensitive E coli continue IV ceftriaxone, day #4 blood cultures negative to date ANABELL Likely prerenal secondary to rhabdo resolved with IVF Nephrology input appreciated Rhabdomyolysis CPK trending down with IVF Discontinue IVF, encourage p.o. intake Mild transaminitis Likely secondary to rhabdomyolysis.? Negative acute hepatitis panel. Elevated troponins:? no reported chest pain or EKG changes to suggest ACS Likely secondary to rhabdomyolysis Follow-up troponin plateaued: [id number]. Echocardiogram and mild increase on LV wall thickness, no WMA seen by cardiology- does not feel that this represents ACS fully AC at baseline (currently with lovenox) HTN BP controlled will d/c norvasc to start cardizem for rapid afib continue lopressor History of a diastolic CHF:? continue home lasix History of depression: Continue home escitalopram History of anxiety:? Klonopin on hold for lethargy/ams History of diabetes:? Patient on Lantus 30 units metformin at home--Hold now.? Will keep the patient on insulin sliding scale.? Monitor fingerstick glucose and adjust as needed. History of Hyperlipidemia:?Hold Statin for now DVT prophylaxis:?Lovenox Code status: Full code.? Confirmed with the patient's son Yonis attending: dr. Cole Needs ongoing inpatient hospitalization due to rapid encephalopathy, afib with RVR given high chance of decomposition for safe discharge planning. Quality Stroke Does the patient have a stroke diagnosis?: No VTE Prior VTE?: No VTE Risk Level:: Medical - moderate - high VTE Device Contraindication: Treatment Not Indicated VTE Drug Contraindication: N/A - Med Ordered
--- NOTE | 2021-10-02 13:06 | MHC.CM.PN ---
Per ROUNDS discussion, Patient is not yet medically cleared for dc (IV Ceftriaxone, IV Diltiazem);Home/resume services is the goal for dc and CM will continue to follow for possible need to adjust the dc plan.
[2021-10-02 15:05] VITALS: BP 127/60; PULSE 91; RESP 18; TEMP 37.1; O2SAT 97
--- NOTE | 2021-10-02 15:11 | PC.NURSE ---
1130 Had 3 sec pause, Katie SHAH notified. cardizem gtt on hold,
[2021-10-02 15:28] LABS: Glucose, Whole Blood 160 mg/dL (60-115)
[2021-10-02] MEDS: 0.9 % Sodium Chloride Flush 3 ML SYRINGE IVFLUSH (17:11)
[2021-10-02 19:17] VITALS: BP 113/62; PULSE 93; RESP 18; TEMP 36.6; O2SAT 97
[2021-10-02 20:03] LABS: Glucose, Whole Blood 224 mg/dL (60-115)
[2021-10-02] MEDS: cefTRIAXone sodium 1 GM in 0.9 % Sodium Chloride 50 ML IV (20:38)
[2021-10-02 23:28] VITALS: BP 135/74; PULSE 95; RESP 20; TEMP 36.8; O2SAT 96
[2021-10-03] MEDS: 0.9 % Sodium Chloride Flush 3 ML SYRINGE IVFLUSH ×3 (00:23→16:11)
[2021-10-03 02:35] VITALS: BP 131/69; PULSE 89; RESP 20; TEMP 36.2; O2SAT 97
[2021-10-03] MEDS: Metoprolol Tartrate 25 MG TABLET PO ×4 (02:53→21:20)
[2021-10-03 06:32] LABS: Hematocrit 31.7 % (37.0-47.0); Hemoglobin 10.2 g/dl (12.0-16.0); Mean Corpuscular HGB Conc 32.2 g/dl (31.0-35.0); Mean Corpuscular Hemoglobin 30.2 pg (27.0-33.0); Mean Corpuscular Volume 93.8 fL (80.0-98.0); Mean Platelet Volume 9.7 fL (9.4-12.3); Platelet Count 254 X10*3/uL (160-400); Red Blood Count 3.38 X10*6/uL (4.20-5.50); Red Cell Distribution Width 13.8 % (11.0-16.0); White Blood Count 9.5 X10*3/uL (4.8-10.8)
[2021-10-03 06:49] LABS: Alanine Aminotransferase 29 U/L (0-31); Alkaline Phosphatase 102 U/L (39-117); Anion Gap 15 (12-20); Aspartate Amino Transferase 23 U/L (5-31); Bilirubin Direct 0.3 mg/dL (0.0-0.5); Bilirubin Total 0.6 mg/dL (0.0-1.0); Blood Urea Nitrogen 23 mg/dL (9-16); Carbon Dioxide 29 mmol/L (22-29); Chloride 96 mmol/L (96-108); Creatinine Clr Calc Pharmacy 94.1; Estimated Glomerular Filt Rate > 60; Glucose Random 178 mg/dL (60-115); Potassium 2.8 mmol/L (3.3-5.1); Sodium 137 mmol/L (135-145)
[2021-10-03 07:23] LABS: Glucose, Whole Blood 168 mg/dL (60-115)
[2021-10-03 07:58] VITALS: BP 149/62; PULSE 101; RESP 20; TEMP 36.2; O2SAT 99
[2021-10-03] MEDS: Insulin Lispro 100 UNIT/ML 3 ML VIAL SUBCUT ×3 (08:17→21:20)
[2021-10-03] MEDS: Escitalopram Oxalate 10 MG TABLET PO (08:18)
[2021-10-03] MEDS: Enoxaparin Sodium 100 MG/ML SYRINGE SUBCUT ×2 (08:18→21:19)
[2021-10-03] MEDS: Furosemide 20 MG TABLET PO (08:18)
[2021-10-03] MEDS: Potassium Chloride ER 20 MEQ TAB.ER.PRT 40 MEQ PO (08:28)
--- NOTE | 2021-10-03 09:56 | HO.PM.IMPN ---
Subjective Subjective Date of Service: 10/03/21 Review of Systems Follow up Fib rvr, encephalopathy Eating breakfast No pain Physical Exam Vital Signs: Vital Signs: Last Vital Signs Temp 97.2 F 10/03/21 07:58 Pulse 101 H 10/03/21 07:58 Resp 20 10/03/21 07:58 BP 149/62 H 10/03/21 07:58 Pulse Ox 99 10/03/21 07:58 Oxygen Flow Rate 5 09/28/21 16:04 BMI result Body Mass Index 35.5 Appearing in no acute distress lung sounds are clear to auscultation heart regular rate rhythm, clear S1, S2 positive bowel sounds, abdomen is soft, nontender neuro patient is alert x3, no focal deficits Objective Data Active Medications Acetaminophen (Acetaminophen 325 Mg Tablet) 650 mg PO Q6H PRN PRN Reason: Pain, Mild (Pain Scale 1-3) Last Admin: 10/01/21 21:29 Dose: 650 mg Documented by: HAROON Albuterol Sulfate (Albuterol Sulfate 90 Mcg 8 Gm Inhaler) 2 puff INHALE Q6H PRN PRN Reason: Shortness Of Breath Or Wheezing Clonazepam (Clonazepam 1 Mg Tablet) 1 mg PO BID [facility] Last Admin: 10/01/21 21:29 Dose: 1 mg Documented by: HAROON Dextrose (Dextrose 50 % 25 Gm/50 Ml Syringe) 25 gm IVPUSH Q15M PRN; Protocol PRN Reason: per Hypoglycemia Standing Ord. Enoxaparin Sodium (Enoxaparin Sodium 100 Mg/Ml Syringe) 100 mg SUBCUT Q12H [facility] Last Admin: 10/03/21 08:18 Dose: 100 mg Documented by: SUSANA Escitalopram Oxalate (Escitalopram Oxalate 10 Mg Tablet) 10 mg PO DAILY [facility] Last Admin: 10/03/21 08:18 Dose: 10 mg Documented by: SUSANA Furosemide (Furosemide 20 Mg Tablet) 20 mg PO DAILY [facility]; Protocol Last Admin: 10/03/21 08:18 Dose: 20 mg Documented by: SUSANA Glucose (Glucose Gel 15 Gm Gel..Gram.) 15 gm PO Q15M PRN; Protocol PRN Reason: per Hypoglycemia Standing Ord. Ceftriaxone Sodium 1 gm/ (Sodium Chloride) 50 mls @ 100 mls/hr IV Q24H [facility] Last Infusion: 10/02/21 21:22 Dose: 0 mls/hr Documented by: BLADIMIR Diltiazem HCl 125 mg/ Sodium (Chloride) 125 mls @ 0 mls/hr IVCONT .Q0M [facility]; Protocol Last Titration: 10/02/21 11:30 Dose: 0 mg/hr, 0 mls/hr Documented by: LIEN Insulin Human Lispro (Insulin Lispro 100 Unit/Ml 3 Ml Vial) 0 unit SUBCUT QIDACHS [facility]; Protocol Last Admin: 10/03/21 08:17 Dose: 2 unit Documented by: SUSANA Melatonin (Melatonin 3 Mg Tablet) 6 mg PO BEDTIME PRN PRN Reason: Insomnia Last Admin: 09/30/21 20:50 Dose: 6 mg Documented by: HAROON Metoprolol Tartrate (Metoprolol Tartrate 25 Mg Tablet) 25 mg PO Q6H [facility]; Protocol Last Admin: 10/03/21 08:19 Dose: 25 mg Documented by: SUSANA Pharmacy Consult (Consult Rx Perform Med Rec) 1 each MISCELLANE ONCE PRN PRN Reason: Consult order Pregabalin (Pregabalin 100 Mg Capsule) 100 mg PO TID [facility] Last Admin: 10/01/21 21:29 Dose: 100 mg Documented by: HAROON Senna (Sennosides 8.6 Mg Tablet) 17.2 mg PO BEDTIME PRN PRN Reason: Constipation Sodium Chloride (0.9 % Sodium Chloride Flush 3 Ml Syringe) 3 ml IVFLUSH QSHIFT [facility] Last Admin: 10/03/21 08:19 Dose: 3 ml Documented by: SUSANA Labs CBC & Chem 7: 10/03/21 05:56 10/03/21 05:56 Labs: Laboratory Results - last 24 hr 10/02/21 10/02/21 10/02/21 11:13 15:08 19:19 MCV MCH MCHC RDW Plt Count MPV Absolute Nucleated RBC Nucleated RBC % (auto) Anion Gap Estim Creat Clear Calc Estimated GFR POC Glucose 199 H 160 H 224 H Random Glucose Calcium Total Bilirubin Direct Bilirubin AST ALT Alkaline Phosphatase Total Protein Albumin 10/03/21 10/03/21 10/03/21 05:56 05:56 07:14 MCV 93.8 MCH 30.2 MCHC 32.2 RDW 13.8 Plt Count 254 MPV 9.7 Absolute Nucleated RBC 0.000 Nucleated RBC % (auto) 0.0 Anion Gap 15 Estim Creat Clear Calc 94.1 Estimated GFR > 60 POC Glucose 168 H Random Glucose 178 H Calcium 8.0 L Total Bilirubin 0.6 Direct Bilirubin 0.3 AST 23 D ALT 29 Alkaline Phosphatase 102 D Total Protein 6.0 L Albumin 3.0 L Assessment and Plan (1) DVT, bilateral lower limbs: Status: Acute (2) Acute metabolic encephalopathy: Status: Acute Plan 76-year-old female with a past medical history of diabetes, CAD, diastolic CHF, AFib on Pradaxa, osteoarthritis, history of breast cancer presented to the hospital today with a chief complaint of unresponsive episode.? afib rvr. History of chronic paroxysmal AFib not on rate control at baseline, started on metoprolol during this admission went into afib rvr on 10/01 and started on diltiazem drip will change lopressor to q6h and wean diltiazem drip on pradaxa for AC at baseline, changed to therapeutic Lovenox due to DVT Metabolic encephalopathy possibly secondary to UTI CT head showed no acute findings. U tox for positive for opiate, fentanyl, benzos.? Concern if she took extra clonazepam, received a dose of flumazenil 09/29 Episode on agitation/restlessness 10/01 concern over benzo withdrawal - klonopin and lyrica had been on hold since admission - resumed. Given lethargy today, will place back on hold as agitation may have been caused by afib Monitor on telemetry Will obtain neurology consult DVT, bilateral noted on venous duplex on admission on pradaxa at baseline for afib VQ scan negative for PE on admission seen by hematology - changed to therapeutic lovenox for now may be able to be changed to alternative NOAC on d/c UTI? Urine growing pansensitive E coli continue IV ceftriaxone blood cultures negative to date ANABELL Likely prerenal secondary to rhabdo resolved with IVF Nephrology input appreciated Rhabdomyolysis CPK trending down with IVF Discontinue IVF, encourage p.o. intake Mild transaminitis Likely secondary to rhabdomyolysis.? Negative acute hepatitis panel. Elevated troponins? no reported chest pain or EKG changes to suggest ACS Likely secondary to rhabdomyolysis Follow-up troponin plateaued: 2188-6765. Echocardiogram and mild increase on LV wall thickness, no WMA seen by cardiology- does not feel that this represents ACS fully AC at baseline (currently with lovenox) HTN BP controlled will d/c norvasc to start cardizem for rapid afib continue lopressor History of a diastolic CHF:? continue home lasix History of depression: Continue home escitalopram History of anxiety continue klonopin History of diabetes:? Will keep the patient on insulin sliding scale.? Monitor fingerstick glucose and adjust as needed. continue lantus History of Hyperlipidemia Hold Statin for now DVT prophylaxis:?Lovenox Code status: Full code.? Confirmed with the patient's son Yonis attending: Dr. Cuevas Needs ongoing inpatient hospitalization due to encephalopathy, afib with RVR given high chance of decomposition for safe discharge planning. Quality Stroke Does the patient have a stroke diagnosis?: No VTE Prior VTE?: No VTE Risk Level:: Medical - moderate - high VTE Device Contraindication: Treatment Not Indicated VTE Drug Contraindication: N/A - Med Ordered
[2021-10-03 11:14] LABS: Glucose, Whole Blood 226 mg/dL (60-115)
[2021-10-03 11:29] VITALS: BP 127/61; PULSE 96; RESP 20; TEMP 36.2; O2SAT 98
--- NOTE | 2021-10-03 12:10 | PM.PNCARD ---
Subjective Subjective Date of Service: 10/03/21 Interval history: Sleepy but arousable. Denying any symptoms. Physical Exam Vital Signs: Last Vital Signs Temp 97.2 F 10/03/21 11:29 Pulse 96 10/03/21 11:29 Resp 20 10/03/21 11:29 BP 127/61 10/03/21 11:29 Pulse Ox 98 10/03/21 11:29 Oxygen Flow Rate 5 09/28/21 16:04 BMI result Body Mass Index 35.5 GENERAL APPEARANCE: Comfortable. Sleepy but arousable easily. Aspirin questions appropriately. NECK: no carotid bruit, no jugular venous distention. SKIN: no suspicious lesions, warm and dry. HEART: no murmurs, irregular rate and rhythm. LUNGS: clear to auscultation bilaterally. ABDOMEN: soft, nontender. EXTREMITIES: no edema. PERIPHERAL PULSES: equal. Objective Labs and Meds Result diagrams: 10/03/21 05:56 10/03/21 05:56 Lab results: Laboratory Results - last 24 hr 10/02/21 10/02/21 10/03/21 15:08 19:19 05:56 WBC 9.5 RBC 3.38 L Hgb 10.2 L Hct 31.7 L MCV 93.8 MCH 30.2 MCHC 32.2 RDW 13.8 Plt Count 254 MPV 9.7 Absolute Nucleated RBC 0.000 Nucleated RBC % (auto) 0.0 Sodium Potassium Chloride Carbon Dioxide Anion Gap BUN Creatinine Estim Creat Clear Calc Estimated GFR POC Glucose 160 H 224 H Random Glucose Calcium Total Bilirubin Direct Bilirubin AST ALT Alkaline Phosphatase Total Protein Albumin 10/03/21 10/03/21 10/03/21 05:56 07:14 11:05 WBC RBC Hgb Hct MCV MCH MCHC RDW Plt Count MPV Absolute Nucleated RBC Nucleated RBC % (auto) Sodium 137 Potassium 2.8 L Chloride 96 Carbon Dioxide 29 Anion Gap 15 BUN 23 H Creatinine 0.68 Estim Creat Clear Calc 94.1 Estimated GFR > 60 POC Glucose 168 H 226 H Random Glucose 178 H Calcium 8.0 L Total Bilirubin 0.6 Direct Bilirubin 0.3 AST 23 D ALT 29 Alkaline Phosphatase 102 D Total Protein 6.0 L Albumin 3.0 L Progress Note: A&P Assessment and plan (1) DVT, bilateral lower limbs: Status: Acute (2) Afib: Status: Acute Plan 76-year-old female who presented with change in mental status. Developed AFib with RVR and has known history of atrial fibrillation and was previously on Pradaxa. Also found to have bilateral DVTs and was started on Lovenox for that. AFib control is reasonable right now. She is on oral metoprolol. Appears she is off the diltiazem drip right now. Can change metoprolol to 75 mg of Toprol XL. If she continues to have tachycardia then add diltiazem 120 mg, if BP allows. Consider changing to Xarelto or Eliquis at discharge. Thank you for allowing me to participate in the care of your patient. Please feel free to contact me if you have any questions. Fall Risk Details Current Medications: Current Medications Acetaminophen (Acetaminophen 325 Mg Tablet) 650 mg PO Q6H PRN PRN Reason: Pain, Mild (Pain Scale 1-3) Last Admin: 10/01/21 21:29 Dose: 650 mg Documented by: Albuterol Sulfate (Albuterol Sulfate 90 Mcg 8 Gm Inhaler) 2 puff INHALE Q6H PRN PRN Reason: Shortness Of Breath Or Wheezing Clonazepam (Clonazepam 1 Mg Tablet) 1 mg PO BID [facility] Last Admin: 10/01/21 21:29 Dose: 1 mg Documented by: Dextrose (Dextrose 50 % 25 Gm/50 Ml Syringe) 25 gm IVPUSH Q15M PRN; Protocol PRN Reason: per Hypoglycemia Standing Ord. Enoxaparin Sodium (Enoxaparin Sodium 100 Mg/Ml Syringe) 100 mg SUBCUT Q12H [facility] Last Admin: 10/03/21 08:18 Dose: 100 mg Documented by: Escitalopram Oxalate (Escitalopram Oxalate 10 Mg Tablet) 10 mg PO DAILY [facility] Last Admin: 10/03/21 08:18 Dose: 10 mg Documented by: Furosemide (Furosemide 20 Mg Tablet) 20 mg PO DAILY [facility]; Protocol Last Admin: 10/03/21 08:18 Dose: 20 mg Documented by: Glucose (Glucose Gel 15 Gm Gel..Gram.) 15 gm PO Q15M PRN; Protocol PRN Reason: per Hypoglycemia Standing Ord. Ceftriaxone Sodium 1 gm/ (Sodium Chloride) 50 mls @ 100 mls/hr IV Q24H [facility] Last Infusion: 10/02/21 21:22 Dose: Infused Documented by: Diltiazem HCl 125 mg/ Sodium (Chloride) 125 mls @ 0 mls/hr IVCONT .Q0M [facility]; Protocol Last Titration: 10/02/21 11:30 Dose: 0 mg/hr, 0 mls/hr Documented by: Insulin Glargine (Insulin Glargine,Hum.Rec.Anlog 100 Unit/Ml 10 Ml Vial) 30 unit SUBCUT BEDTIME [facility] Insulin Human Lispro (Insulin Lispro 100 Unit/Ml 3 Ml Vial) 0 unit SUBCUT QIDACHS [facility]; Protocol Last Admin: 10/03/21 11:47 Dose: 4 unit Documented by: Melatonin (Melatonin 3 Mg Tablet) 6 mg PO BEDTIME PRN PRN Reason: Insomnia Last Admin: 09/30/21 20:50 Dose: 6 mg Documented by: Metoprolol Tartrate (Metoprolol Tartrate 25 Mg Tablet) 25 mg PO Q6H [facility]; Protocol Last Admin: 10/03/21 08:19 Dose: 25 mg Documented by: Pharmacy Consult (Consult Rx Perform Med Rec) 1 each MISCELLANE ONCE PRN PRN Reason: Consult order Pregabalin (Pregabalin 100 Mg Capsule) 100 mg PO TID [facility] Last Admin: 10/01/21 21:29 Dose: 100 mg Documented by: Senna (Sennosides 8.6 Mg Tablet) 17.2 mg PO BEDTIME PRN PRN Reason: Constipation Sodium Chloride (0.9 % Sodium Chloride Flush 3 Ml Syringe) 3 ml IVFLUSH QSHIFT [facility] Last Admin: 10/03/21 08:19 Dose: 3 ml Documented by: Time Spent With Patient Time: Total time spent is greater than 50% in coordination of care (as documented) at patient's floor/unit and/or counseling patient: Progress Note: Quality Stroke Does the patient have a stroke diagnosis?: No Procedures Date of Service Date of Service: 10/03/21
[2021-10-03 15:11] VITALS: BP 129/70; PULSE 104; RESP 18; TEMP 36.6; O2SAT 96
[2021-10-03 16:33] LABS: Glucose, Whole Blood 142 mg/dL (60-115)
[2021-10-03 19:19] VITALS: BP 101/59; PULSE 67; RESP 18; TEMP 36.3; O2SAT 97
[2021-10-03 20:41] LABS: Glucose, Whole Blood 154 mg/dL (60-115)
[2021-10-03] MEDS: Insulin Glargine,Hum.rec.anlog 100 UNIT/ML 10 ML VIAL 30 UNIT SUBCUT (21:20)
[2021-10-03] MEDS: cefTRIAXone sodium 1 GM in 0.9 % Sodium Chloride 50 ML IV (21:21)
[2021-10-04] VITALS (7 sets, daily range): BP systolic 120–139; BP diastolic 60–78; PULSE 78–100; RESP 16–20; TEMP 36.2–36.8; O2SAT 95–97
[2021-10-04] MEDS: 0.9 % Sodium Chloride Flush 3 ML SYRINGE IVFLUSH ×4 (00:18→20:28)
[2021-10-04] MEDS: Metoprolol Tartrate 25 MG TABLET PO ×2 (04:01→09:04)
[2021-10-04 06:25] LABS: Anion Gap 16 (12-20); Blood Urea Nitrogen 14 mg/dL (9-16); Calcium 8.1 mg/dL (8.4-10.2); Carbon Dioxide 28 mmol/L (22-29); Chloride 97 mmol/L (96-108); Creatinine Clr Calc Pharmacy 101.6; Estimated Glomerular Filt Rate > 60; Glucose Random 140 mg/dL (60-115); Potassium 3.3 mmol/L (3.3-5.1); Sodium 138 mmol/L (135-145)
[2021-10-04 07:37] LABS: Glucose, Whole Blood 126 mg/dL (60-115)
[2021-10-04] MEDS: Enoxaparin Sodium 100 MG/ML SYRINGE SUBCUT ×2 (09:03→20:28)
[2021-10-04] MEDS: Furosemide 20 MG TABLET PO (09:04)
[2021-10-04] MEDS: Escitalopram Oxalate 10 MG TABLET PO (09:04)
--- NOTE | 2021-10-04 10:36 | HO.PM.IMPN ---
Subjective Subjective Date of Service: 10/04/21 Review of Systems Follow up Fib rvr, encephalopathy Eating breakfast No pain Physical Exam Vital Signs: Vital Signs: Last Vital Signs Temp 97.3 F 10/04/21 07:34 Pulse 88 10/04/21 07:34 Resp 20 10/04/21 07:34 BP 132/72 10/04/21 07:34 Pulse Ox 97 10/04/21 07:34 Oxygen Flow Rate 5 09/28/21 16:04 BMI result Body Mass Index 35.5 Appearing in no acute distress lung sounds are clear to auscultation heart regular rate rhythm, clear S1, S2 positive bowel sounds, abdomen is soft, nontender neuro patient is alert, confused Objective Data Active Medications Acetaminophen (Acetaminophen 325 Mg Tablet) 650 mg PO Q6H PRN PRN Reason: Pain, Mild (Pain Scale 1-3) Last Admin: 10/01/21 21:29 Dose: 650 mg Documented by: HAROON Albuterol Sulfate (Albuterol Sulfate 90 Mcg 8 Gm Inhaler) 2 puff INHALE Q6H PRN PRN Reason: Shortness Of Breath Or Wheezing Clonazepam (Clonazepam 1 Mg Tablet) 1 mg PO BID [facility] Last Admin: 10/01/21 21:29 Dose: 1 mg Documented by: HAROON Dextrose (Dextrose 50 % 25 Gm/50 Ml Syringe) 25 gm IVPUSH Q15M PRN; Protocol PRN Reason: per Hypoglycemia Standing Ord. Enoxaparin Sodium (Enoxaparin Sodium 100 Mg/Ml Syringe) 100 mg SUBCUT Q12H [facility] Last Admin: 10/04/21 09:03 Dose: 100 mg Documented by: SUSANA Escitalopram Oxalate (Escitalopram Oxalate 10 Mg Tablet) 10 mg PO DAILY [facility] Last Admin: 10/04/21 09:04 Dose: 10 mg Documented by: SUSANA Furosemide (Furosemide 20 Mg Tablet) 20 mg PO DAILY [facility]; Protocol Last Admin: 10/04/21 09:04 Dose: 20 mg Documented by: SUSANA Glucose (Glucose Gel 15 Gm Gel..Gram.) 15 gm PO Q15M PRN; Protocol PRN Reason: per Hypoglycemia Standing Ord. Ceftriaxone Sodium 1 gm/ (Sodium Chloride) 50 mls @ 100 mls/hr IV Q24H [facility] Last Infusion: 10/04/21 00:21 Dose: 100 mls/hr Documented by: FRANDY Diltiazem HCl 125 mg/ Sodium (Chloride) 125 mls @ 0 mls/hr IVCONT .Q0M [facility]; Protocol Last Titration: 10/02/21 11:30 Dose: 0 mg/hr, 0 mls/hr Documented by: LIEN Insulin Glargine (Insulin Glargine,Hum.Rec.Anlog 100 Unit/Ml 10 Ml Vial) 30 unit SUBCUT BEDTIME [facility] Last Admin: 10/03/21 21:20 Dose: 30 unit Documented by: JEREMY Insulin Human Lispro (Insulin Lispro 100 Unit/Ml 3 Ml Vial) 0 unit SUBCUT QIDACHS [facility]; Protocol Last Admin: 10/04/21 07:42 Dose: Not Given Documented by: SUSANA Non-Admin Reason: No Insulin Coverage Melatonin (Melatonin 3 Mg Tablet) 6 mg PO BEDTIME PRN PRN Reason: Insomnia Last Admin: 09/30/21 20:50 Dose: 6 mg Documented by: HAROON Metoprolol Tartrate (Metoprolol Tartrate 25 Mg Tablet) 25 mg PO Q6H [facility]; Protocol Last Admin: 10/04/21 09:04 Dose: 25 mg Documented by: SUSANA Pharmacy Consult (Consult Rx Perform Med Rec) 1 each MISCELLANE ONCE PRN PRN Reason: Consult order Pregabalin (Pregabalin 100 Mg Capsule) 100 mg PO TID [facility] Last Admin: 10/01/21 21:29 Dose: 100 mg Documented by: HAROON Senna (Sennosides 8.6 Mg Tablet) 17.2 mg PO BEDTIME PRN PRN Reason: Constipation Sodium Chloride (0.9 % Sodium Chloride Flush 3 Ml Syringe) 3 ml IVFLUSH QSHIFT [facility] Last Admin: 10/04/21 09:04 Dose: 3 ml Documented by: SUSANA Labs CBC & Chem 7: 10/03/21 05:56 10/04/21 04:44 Labs: Laboratory Results - last 24 hr 10/03/21 10/03/21 10/03/21 11:05 16:26 20:37 Anion Gap Estim Creat Clear Calc Estimated GFR POC Glucose 226 H 142 H 154 H Random Glucose Calcium 10/04/21 10/04/21 04:44 07:33 Anion Gap 16 Estim Creat Clear Calc 101.6 Estimated GFR > 60 POC Glucose 126 H Random Glucose 140 H Calcium 8.1 L Microbiology Microbiology Results: Microbiology 09/28/21 17:08 Blood Culture - Final Blood - Venous No growth after 5 days. 09/28/21 17:20 Blood Culture - Final Blood - Venous No growth after 5 days. Assessment and Plan (1) DVT, bilateral lower limbs: Status: Acute (2) Acute metabolic encephalopathy: Status: Acute Plan 76-year-old female with a past medical history of diabetes, CAD, diastolic CHF, AFib on Pradaxa, osteoarthritis, history of breast cancer presented to the hospital today with a chief complaint of unresponsive episode.? afib rvr. History of chronic paroxysmal AFib Initially treated with IV cardizem not on rate control at baseline, started on metoprolol during this admission, will increase to 75mg daily on pradaxa for AC at baseline, changed to therapeutic Lovenox due to DVT Metabolic encephalopathy possibly secondary to UTI CT head showed no acute findings. U tox for positive for opiate, fentanyl, benzos.? Concern if she took extra clonazepam, received a dose of flumazenil 09/29 Episode on agitation/restlessness 10/01 concern over benzo withdrawal - klonopin and lyrica had been on hold since admission - resumed. Given lethargy today, will place back on hold as agitation may have been caused by afib Monitor on telemetry Will obtain neurology consult DVT, bilateral noted on venous duplex on admission on pradaxa at baseline for afib VQ scan negative for PE on admission seen by hematology - changed to therapeutic lovenox for now may be able to be changed to alternative NOAC on d/c UTI? Urine growing pansensitive E coli continue IV ceftriaxone blood cultures negative to date ANABELL Likely prerenal secondary to rhabdo resolved with IVF Nephrology input appreciated Rhabdomyolysis CPK trending down with IVF Discontinue IVF, encourage p.o. intake Mild transaminitis Likely secondary to rhabdomyolysis.? Negative acute hepatitis panel. Elevated troponins? no reported chest pain or EKG changes to suggest ACS Likely secondary to rhabdomyolysis Follow-up troponin plateaued: [id number]. Echocardiogram and mild increase on LV wall thickness, no WMA seen by cardiology- does not feel that this represents ACS fully AC at baseline (currently with lovenox) HTN BP controlled continue amlodipine History of a diastolic CHF:? continue home lasix History of depression: Continue home escitalopram History of anxiety continue klonopin History of diabetes:? Will keep the patient on insulin sliding scale.? Monitor fingerstick glucose and adjust as needed. continue lantus History of Hyperlipidemia Hold Statin for now DVT prophylaxis:?Lovenox Code status: Full code.? Confirmed with the patient's son Yonis attending: Dr. Cuevas Needs ongoing inpatient hospitalization due to encephalopathy, afib with RVR given high chance of decomposition for safe discharge planning. cardiac medications adjusted for blood pressure and atrial fibrillation and needs monitoring. Quality Stroke Does the patient have a stroke diagnosis?: No VTE Prior VTE?: No VTE Risk Level:: Medical - moderate - high VTE Device Contraindication: Treatment Not Indicated VTE Drug Contraindication: N/A - Med Ordered
[2021-10-04 11:08] LABS: Glucose, Whole Blood 206 mg/dL (60-115)
[2021-10-04] MEDS: Insulin Lispro 100 UNIT/ML 3 ML VIAL SUBCUT ×2 (12:41→20:27)
[2021-10-04 15:59] LABS: Glucose, Whole Blood 66 mg/dL (60-115)
[2021-10-04 16:51] LABS: Glucose, Whole Blood 150 mg/dL (60-115)
[2021-10-04 20:13] LABS: Glucose, Whole Blood 177 mg/dL (60-115)
[2021-10-04] MEDS: Insulin Glargine,Hum.rec.anlog 100 UNIT/ML 10 ML VIAL 30 UNIT SUBCUT (20:27)
[2021-10-04] MEDS: cefTRIAXone sodium 1 GM in 0.9 % Sodium Chloride 50 ML IV (20:28)
[2021-10-05 03:07] VITALS: BP 139/61; PULSE 83; RESP 15; TEMP 36.4; O2SAT 97
[2021-10-05 07:15] VITALS: BP 124/66; PULSE 94; RESP 18; TEMP 36.2; O2SAT 98
[2021-10-05 07:53] LABS: Glucose, Whole Blood 83 mg/dL (60-115)
[2021-10-05] MEDS: Escitalopram Oxalate 10 MG TABLET PO (08:59)
[2021-10-05] MEDS: Enoxaparin Sodium 100 MG/ML SYRINGE SUBCUT ×2 (08:59→20:36)
[2021-10-05] MEDS: Furosemide 20 MG TABLET PO (08:59)
[2021-10-05] MEDS: Metoprolol Succinate ER 25 MG TAB.ER.24H 75 MG PO (08:59)
[2021-10-05] MEDS: amLODIPine Besylate 10 MG TABLET PO (08:59)
[2021-10-05] MEDS: 0.9 % Sodium Chloride Flush 3 ML SYRINGE IVFLUSH ×3 (09:04→20:38)
[2021-10-05 11:04] VITALS: BP 116/56; PULSE 88; RESP 18; TEMP 36.6; O2SAT 95
[2021-10-05 11:17] LABS: Glucose, Whole Blood 137 mg/dL (60-115)
[2021-10-05 12:01] VITALS: BMI 35.5
--- NOTE | 2021-10-05 12:08 | MHC.CLN ---
NUTRITION PATIENT WITH STAGE II WOUND TO COCCYX. VARIABLE INTAKE AT MEALS. ADDING GLUCERNA BID TO PROMOTE WOUND HEALING.
--- NOTE | 2021-10-05 12:27 | P.PNIM_ITS ---
Subjective Subjective Date of Service: 10/05/21 Review of Systems Follow up Fib rvr, encephalopathy Eating breakfast No pain Physical Exam Vital Signs: Vital Signs: Last Vital Signs Temp 97.9 F 10/05/21 11:04 Pulse 88 10/05/21 11:04 Resp 18 10/05/21 11:04 BP 116/56 L 10/05/21 11:04 Pulse Ox 95 10/05/21 11:04 Oxygen Flow Rate 5 09/28/21 16:04 BMI result Body Mass Index 35.5 Appearing in no acute distress lung sounds are clear to auscultation heart regular rate rhythm, clear S1, S2 positive bowel sounds, abdomen is soft, nontender neuro patient is alert x3, no focal deficits Objective Data Active Medications Acetaminophen (Acetaminophen 325 Mg Tablet) 650 mg PO Q6H PRN PRN Reason: Pain, Mild (Pain Scale 1-3) Last Admin: 10/01/21 21:29 Dose: 650 mg Documented by: HAROON Albuterol Sulfate (Albuterol Sulfate 90 Mcg 8 Gm Inhaler) 2 puff INHALE Q6H PRN PRN Reason: Shortness Of Breath Or Wheezing Amlodipine Besylate (Amlodipine Besylate 10 Mg Tablet) 10 mg PO DAILY [facility]; Protocol Last Admin: 10/05/21 08:59 Dose: 10 mg Documented by: LUNA Clonazepam (Clonazepam 1 Mg Tablet) 1 mg PO BID [facility] Last Admin: 10/01/21 21:29 Dose: 1 mg Documented by: HAROON Dextrose (Dextrose 50 % 25 Gm/50 Ml Syringe) 25 gm IVPUSH Q15M PRN; Protocol PRN Reason: per Hypoglycemia Standing Ord. Enoxaparin Sodium (Enoxaparin Sodium 100 Mg/Ml Syringe) 100 mg SUBCUT Q12H DANELLE Last Admin: 10/05/21 08:59 Dose: 100 mg Documented by: LUNA Escitalopram Oxalate (Escitalopram Oxalate 10 Mg Tablet) 10 mg PO DAILY [facility] Last Admin: 10/05/21 08:59 Dose: 10 mg Documented by: LUNA Furosemide (Furosemide 20 Mg Tablet) 20 mg PO DAILY DANELLE; Protocol Last Admin: 10/05/21 08:59 Dose: 20 mg Documented by: LUNA Glucose (Glucose Gel 15 Gm Gel..Gram.) 15 gm PO Q15M PRN; Protocol PRN Reason: per Hypoglycemia Standing Ord. Ceftriaxone Sodium 1 gm/ (Sodium Chloride) 50 mls @ 100 mls/hr IV Q24H [facility] Last Infusion: 10/04/21 21:44 Dose: 0 mls/hr Documented by: CAITIE Insulin Glargine (Insulin Glargine,Hum.Rec.Anlog 100 Unit/Ml 10 Ml Vial) 30 unit SUBCUT BEDTIME [facility] Last Admin: 10/04/21 20:27 Dose: 30 unit Documented by: CAITIE Insulin Human Lispro (Insulin Lispro 100 Unit/Ml 3 Ml Vial) 0 unit SUBCUT QIDACHS [facility]; Protocol Last Admin: 10/05/21 11:18 Dose: Not Given Documented by: LUNA Non-Admin Reason: No Insulin Coverage Melatonin (Melatonin 3 Mg Tablet) 6 mg PO BEDTIME PRN PRN Reason: Insomnia Last Admin: 09/30/21 20:50 Dose: 6 mg Documented by: HAROON Metoprolol Succinate (Metoprolol Succinate Er 25 Mg Tab.Er.24h) 75 mg PO DAILY [facility]; Protocol Last Admin: 10/05/21 08:59 Dose: 75 mg Documented by: LUNA Pharmacy Consult (Consult Rx Perform Med Rec) 1 each MISCELLANE ONCE PRN PRN Reason: Consult order Pregabalin (Pregabalin 100 Mg Capsule) 100 mg PO TID [facility] Last Admin: 10/01/21 21:29 Dose: 100 mg Documented by: HAROON Senna (Sennosides 8.6 Mg Tablet) 17.2 mg PO BEDTIME PRN PRN Reason: Constipation Sodium Chloride (0.9 % Sodium Chloride Flush 3 Ml Syringe) 3 ml IVFLUSH QSHIFT [facility] Last Admin: 10/05/21 09:04 Dose: 3 ml Documented by: LUNA Labs CBC & Chem 7: 10/03/21 05:56 10/04/21 04:44 Labs: Laboratory Results - last 24 hr 10/04/21 10/04/21 10/04/21 15:55 16:48 20:04 POC Glucose 66 150 H 177 H 10/05/21 10/05/21 07:14 11:06 POC Glucose 83 137 H Assessment and Plan (1) DVT, bilateral lower limbs: Status: Acute (2) Acute metabolic encephalopathy: Status: Acute Plan 76-year-old female with a past medical history of diabetes, CAD, diastolic CHF, AFib on Pradaxa, osteoarthritis, history of breast cancer presented to the hospital today with a chief complaint of unresponsive episode.? afib rvr. History of chronic paroxysmal AFib Initially treated with IV cardizem not on rate control at baseline, started on metoprolol during this admission, will increase to 75mg daily on pradaxa for AC at baseline, changed to therapeutic Lovenox due to DVT, consider changing to eliquis Metabolic encephalopathy possibly secondary to UTI CT head showed no acute findings. U tox for positive for opiate, fentanyl, benzos.? Concern if she took extra clonazepam, received a dose of flumazenil 09/29 Episode on agitation/restlessness 10/01 concern over benzo withdrawal - klonopin and lyrica had been on hold since admission - resumed. Given lethargy today, will place back on hold as agitation may have been caused by afib Monitor on telemetry Will obtain neurology consult DVT, bilateral noted on venous duplex on admission on pradaxa at baseline for afib VQ scan negative for PE on admission seen by hematology - changed to therapeutic lovenox for now may be able to be changed to alternative NOAC on d/c UTI? Urine growing pansensitive E coli continue IV ceftriaxone blood cultures negative to date ANABELL Likely prerenal secondary to rhabdo resolved with IVF Nephrology input appreciated Rhabdomyolysis CPK trending down with IVF Discontinue IVF, encourage p.o. intake Mild transaminitis Likely secondary to rhabdomyolysis.? Negative acute hepatitis panel. Elevated troponins? no reported chest pain or EKG changes to suggest ACS Likely secondary to rhabdomyolysis Follow-up troponin plateaued: [id number]. Echocardiogram and mild increase on LV wall thickness, no WMA seen by cardiology- does not feel that this represents ACS fully AC at baseline (currently with lovenox) HTN BP controlled continue amlodipine History of a diastolic CHF:? continue home lasix History of depression: Continue home escitalopram History of anxiety continue klonopin History of diabetes:? Will keep the patient on insulin sliding scale.? Monitor fingerstick glucose and adjust as needed. continue lantus History of Hyperlipidemia Hold Statin for now DVT prophylaxis:?Lovenox Code status: Full code.? Confirmed with the patient's son Yonis attending: Dr. Cuevas Needs ongoing inpatient hospitalization due to encephalopathy, afib with RVR given high chance of decomposition for safe discharge planning. cardiac medications adjusted for blood pressure and atrial fibrillation and needs monitoring as well as pending physical therapy consultation Quality Stroke Does the patient have a stroke diagnosis?: No VTE Prior VTE?: No VTE Risk Level:: Medical - moderate - high VTE Device Contraindication: Treatment Not Indicated VTE Drug Contraindication: N/A - Med Ordered
[2021-10-05 14:31] VITALS: BP 116/56; PULSE 88; O2SAT 95
[2021-10-05 15:03] VITALS: BP 121/61; PULSE 98; RESP 17; TEMP 36.5; O2SAT 96
[2021-10-05 16:00] LABS: Glucose, Whole Blood 176 mg/dL (60-115)
[2021-10-05] MEDS: Insulin Lispro 100 UNIT/ML 3 ML VIAL SUBCUT ×2 (16:32→20:37)
[2021-10-05 18:52] VITALS: BP 119/70; PULSE 85; RESP 17; TEMP 36.1; O2SAT 95
[2021-10-05 19:58] LABS: Glucose, Whole Blood 156 mg/dL (60-115)
[2021-10-05] MEDS: Insulin Glargine,Hum.rec.anlog 100 UNIT/ML 10 ML VIAL 30 UNIT SUBCUT (20:37)
[2021-10-05] MEDS: cefTRIAXone sodium 1 GM in 0.9 % Sodium Chloride 50 ML IV (20:37)
[2021-10-06] VITALS (7 sets, daily range): BP systolic 114–137; BP diastolic 58–79; PULSE 78–99; RESP 16–20; TEMP 35.5–37.3; O2SAT 94–96
[2021-10-06 07:11] LABS: Glucose, Whole Blood 98 mg/dL (60-115)
[2021-10-06] MEDS: amLODIPine Besylate 10 MG TABLET PO (07:34)
[2021-10-06] MEDS: Metoprolol Succinate ER 25 MG TAB.ER.24H 75 MG PO (07:34)
[2021-10-06] MEDS: Enoxaparin Sodium 100 MG/ML SYRINGE SUBCUT (07:35)
[2021-10-06] MEDS: Furosemide 20 MG TABLET PO (07:35)
[2021-10-06] MEDS: 0.9 % Sodium Chloride Flush 3 ML SYRINGE IVFLUSH (07:35)
[2021-10-06] MEDS: Escitalopram Oxalate 10 MG TABLET PO (07:35)
--- NOTE | 2021-10-06 09:26 | PM.DS ---
DS: Providers Provider Date of Service: 10/06/21 Date of admission: 09/28/21 21:26 Primary care physician: Tim Ding MD Consults: 09/28/21 21:26 Consult to Cardiology Routine Consulting Provider: Edison Maddox Reason for consultation: elevated troponins; unresponsive epsiode 09/28/21 21:31 Consult to Nephrology Routine Consulting Provider: Edvin Steele Reason for consultation: ANABELL 10/01/21 12:52 Consult to Hematology / Oncology Routine Consulting Provider: Yessica Conti Reason for consultation: b/l LE DVT on pradaxa at baseline Has provider been notified: No 10/02/21 12:14 Consult to Neurology Routine Consulting Provider: [facility] Reason for consultation: encephalopathy Has provider been notified: No Attending physician on discharge: Rayshawn Cole Discharging clinician: Jeanette Singer DS: Diagnosis Discharge Diagnosis (1) DVT, bilateral lower limbs: Status: Acute (2) Acute metabolic encephalopathy: Status: Acute DS: Summary Hospital Course Hospital Course: 76-year-old female with a past medical history of hypertension, hyperlipidemia, diabetes, CAD, diastolic CHF, AFib on Pradaxa, osteoarthritis, history of breast cancer, anxiety, depression, degenerative spine disease-chronic back pain, asthma presented to the hospital today with a chief complaint of unresponsive episode.? Patient is currently drowsy follows simple commands and falls back to sleep.?Spoke to the patient's son over the phone-mentions that when he found her she was sleeping on the bed 2 hours later he came back to the house to check on her and she was found on the floor; not responding to home in subsequently called EMS and sent to the ER for further evaluation.?Patient's son also mentioned that patient was doing completely fine yesterday.? He is not unclear if the patient took an extra dose of Klonopin tablets; also unclear if she has taken any illicit drugs.?Mentions that she has similar presentations in the past when she has urinary tract infection.?Denies patient having any fevers, denies patient complaining of any stomach pain abdominal pain chest pain before.?Mentions that when the EMS came in POC glucose was noted to be in 150s.? Denies patient having any seizures. Review of all other systems is negative except mentioned above. ER course: Per ER team patient noted to be altered and drowsy; also complained of shortness of breath; patient denied any chest pain to the ER team.? EKG was nonischemic.? Troponin elevated to 33 0s; cardiology was notifiewhomentioned that elevated troponin likely related to rhabdomyolysis.? Patient's CPK was noted to be 2400.? Patient also noted to be in ANABELL with creatinine of 1.7 from baseline of 0.7.? Patient was given IV fluids.? Urinalysis was abnormal consistent with UTI-given ceftriaxone; CT head showed no acute findings; patient D-dimer was elevated to 2400-V/Q scan was done which showed no evidence of pulmonary embolism.? Admitted to the hospital for further management .? afib rvr. History of chronic paroxysmal AFib? Initially treated with IV cardizem not on rate control at baseline, started on metoprolol during this admission, increased to 75mg daily on pradaxa for AC at baseline, changed to? therapeutic Lovenox due to DVT, now placed on Eliquis Metabolic encephalopathy possibly secondary to UTI CT head showed no acute findings. U tox for positive for opiate, fentanyl, benzos.? Concern if she took extra clonazepam, received a dose of flumazenil 09/29 Episode of agitation/restlessness 10/01 concern over benzo withdrawal - klonopin and lyrica had been on hold since admission - resumed. DVT, bilateral noted on venous duplex on admission on pradaxa at baseline for afib VQ scan negative for PE on admission seen by hematology - changed to therapeutic lovenox for now may be able to be changed to alternative NOAC on d/c UTI? Urine growing pansensitive E coli completed treatment with IV ceftriaxone blood cultures negative to date ANABELL Likely prerenal secondary to rhabdo resolved with IVF Nephrology input appreciated Rhabdomyolysis CPK trending down with IVF Discontinue IVF, encourage p.o. intake Mild transaminitis Likely secondary to rhabdomyolysis.? Negative acute hepatitis panel. Elevated troponins? no reported chest pain or EKG changes to suggest ACS Likely secondary to rhabdomyolysis Follow-up troponin plateaued: [id number]. Echocardiogram and mild increase on LV wall thickness, no WMA seen by cardiology- does not feel that this represented ACS fully AC at baseline HTN BP controlled continue amlodipine History of a diastolic CHF continue home lasix History of depression Continue home escitalopram History of anxiety continue klonopin History of diabetes Continue home medications History of Hyperlipidemia Statin Time Spent with Patient Time attestation: Total time spent providing and/or coordinating discharge services: Discharge coordination time: Greater than 30 minutes Quality: Safe Use of Opioids Does Pt have an Active Cancer Diagnosis on the Problem List?: No Quality: Stroke Does the patient have a stroke diagnosis?: No Physical Exam Vital Signs: Vital Signs: Last Vital Signs Temp 98 F 10/06/21 06:56 Pulse 93 10/06/21 06:56 Resp 20 10/06/21 06:56 BP 137/79 10/06/21 06:56 Pulse Ox 94 10/06/21 06:56 Oxygen Flow Rate 5 09/28/21 16:04 BMI result Body Mass Index 35.5 Appearing in no acute distress head is normocephalic atraumatic eyes pupils are PERRLA sclera is anicteric mouth throat mucous membranes are intact and moist neck is supple no lymphadenopathy, no JVD noted lung sounds are clear to auscultation heart regular rate rhythm, clear S1, S2 positive bowel sounds, abdomen is soft, nontender neuro patient is alert x3, no focal deficits , slow to respond but oriented DS: Data Data Completed and Pending Labs on day of discharge: Laboratory Results - last 24 hr 10/05/21 10/05/21 10/05/21 11:06 15:38 19:47 POC Glucose 137 H 176 H 156 H 10/06/21 06:55 POC Glucose 98 Discharge Plan Discharge Patient Disposition: Home, Self-Care Discharge Diagnosis: Atrial fibrillation with rapid ventricular response Metabolic encephalopathy Bilateral DVT E coli UTI ANABELL Rhabdomyolysis Elevated troponin Referrals: Po,Tim Murphy MD [Primary Care Provider] - 1 Week Discharge Medications: No Action albuterol sulfate 90 mcg/actuation HFA aerosol inhaler 2 puff inhalation Q6H PRN (Reason: Shortness Of Breath Or Wheezing) 0RF metformin 500 mg tablet 500 mg PO BID Qty: 180 2RF furosemide 20 mg tablet 20 mg PO DAILY 90 Days Qty: 90 1RF amlodipine 10 mg tablet 10 mg PO DAILY Qty: 90 0RF Lantus Solostar U-100 Insulin 100 unit/mL (3 mL) insulin pen 30 unit subcut BEDTIME Qty: 12 0RF pregabalin 100 mg capsule 100 mg PO TID 30 Days Qty: 90 3RF Pradaxa 150 mg capsule 150 mg PO BID 90 Days Qty: 180 1RF simvastatin 10 mg tablet 10 mg PO BEDTIME Qty: 90 3RF clonazepam 1 mg tablet 1 mg PO BID 30 Days Qty: 60 0RF escitalopram oxalate 10 mg tablet 10 mg PO DAILY 90 Days Qty: 90 0RF (DME) Pull ups Extra LArge See Rx Instructions .Route .MEDSUPPLY Qty: 120 11RF Rx Instructions: As directed trazodone 50 mg tablet 150 mg PO BEDTIME 30 Days Qty: 90 2RF Diet: advance to usual diet Activity on Discharge: As tolerated Stand Alone Forms: Patient Portal Discharge page Care Plan Goals: Complete resolution of symptoms Health Concerns: Atrial fibrillation with rapid ventricular response Metabolic encephalopathy Bilateral DVT E coli UTI ANABELL Rhabdomyolysis Elevated troponin Plan of Treatment: Follow up with primary care provider as needed Take all medications as prescribed Assessment: see discharge summary
--- NOTE | 2021-10-06 09:49 | MHC.CM.PN ---
CM met with Patient at bedside to attempt to discuss dc planning; Patient did not appear to understand the conversation.CM spoke with Son/HCP/Yonis regarding PT's recommendation for STR. Yonis is in agreement with the plan and agreeable to SNF search, hoping for the [place] area. CM will follow.
[2021-10-06 11:17] LABS: Glucose, Whole Blood 122 mg/dL (60-115)
[2021-10-06 11:45] LABS: COVID-19 Test Negative (Negative); IDNOW Serial# 08D9AD1C
--- NOTE | 2021-10-06 11:57 | MHC.CM.PN ---
Patient has been medically cleared for dc to SNF/STR today. Patient will dc to [facility] today at 1:00PM, via [facility]. CM spoke with Son/HCP/Yonis at [phone] who is aware of and in agreement with the dc plan. IMM addressed with Yonis and the original will be mailed certified letter to him and a copy has been placed on the chart.
== END 2021-10-06 15:20 | disposition skilled nursing facility (03) | DRG 557 ==
LOC: HO.ED 16:53 → HO.EDOVER 21:35 → HO.IMC 09-29 17:03
PROVIDERS: Physician Assistant Medical; Student in an Organized Health Care Education/Training Program; Admitting Provider Hospitalist; Emergency Provider Emergency Medicine; PCP Internal Medicine; Visit Provider Nurse Practitioner Acute Care
DX: M62.82 Rhabdomyolysis (principal); G93.41 Metabolic encephalopathy; N39.0 Urinary tract infection, site not specified; N17.9 Acute kidney failure, unspecified; I50.32 Chronic diastolic (congestive) heart failure; I82.403 Acute embolism and thrombosis of unspecified deep veins of lower extremity, bilateral; M51.37 Other intervertebral disc degeneration, lumbosacral region; I11.0 Hypertensive heart disease with heart failure; J45.909 Unspecified asthma, uncomplicated; F32.A Depression, unspecified; I25.10 Atherosclerotic heart disease of native coronary artery without angina pectoris; E78.5 Hyperlipidemia, unspecified; I48.0 Paroxysmal atrial fibrillation; F41.9 Anxiety disorder, unspecified; B96.20 Unspecified Escherichia coli [E. coli] as the cause of diseases classified elsewhere; Z85.3 Personal history of malignant neoplasm of breast; Z98.51 Tubal ligation status; Z88.0 Allergy status to penicillin; Z20.822 Contact with and (suspected) exposure to COVID-19; Z87.440 Personal history of urinary (tract) infections; Z88.2 Allergy status to sulfonamides; Z79.4 Long term (current) use of insulin; Z79.01 Long term (current) use of anticoagulants; Z79.899 Other long term (current) drug therapy
CPT/HCPCS: 36415; 70450; 71045; 78580; 80048; 80076; 80307; 81001; 82077; 82140; 82550; 82803; 82947; 83605; 83735; 83880; 84484; 85025; 85027; 85379; 85610; 85730; 86704; 86706; 86709; 86803; 87040; 87086; 87088; 87186; 87340; 87502; 87635; 93005; 93306; 93970; 96360; 97110; 97163; 97530; 99285; 99291; A9540; J0696; J1650

== ENCOUNTER 2021-10-17 10:06 | Inpatient (IN) | payer MEDICARE, MEDICAID, SELFPAY ==
[2021-10-17] VITALS (8 sets, daily range): BP systolic 114–141; BP diastolic 54–74; PULSE 76–114; RESP 15–35; TEMP 36.5–38.6; O2SAT 92–98; BMI 32.3
--- NOTE | ~2021-10-17 | CT_ITS ---
EXAMINATION: CT HEAD WITHOUT CONTRAST CLINICAL INFORMATION: Altered mental status, on blood thinners. COMPARISON: Head CT scan dated 09/28/2021. TECHNIQUE: Contiguous axial imaging was performed from the skull base to vertex without intravenous administration of contrast. Coronal and sagittal reformatted images were obtained. This CT examination was performed using dose optimization techniques as appropriate, variously including the following: *Automated exposure control *Adjustment of mA and/or kV according to patient size (this includes techniques or standardized protocols for targeted exams where dose is matched to indication/reason for exam; i.e. extremities or head) *Use of iterative reconstruction technique DLP: 684 mGy-cm FINDINGS: There is mild widening of the cortical sulci and associated ventriculomegaly. The lateral ventricles are symmetrical. The third and fourth ventricles are in their normal midline position. The basilar and prepontine cisterns are unremarkable. There is no acute intra or extracerebral abnormality. There is no mass effect or midline shift. Sections through the bony calvarium are unremarkable. The orbits are intact. The paranasal sinuses are clear. The mastoid air cells are clear. Mild mid nasal septal deviation, apex the left with apical spur. CT/CT head/brain wo con IMPRESSION: No acute intracranial pathology.
--- NOTE | ~2021-10-17 | XR_ITS ---
EXAMINATION: XR chest 1V CLINICAL INFORMATION: Reason for Exam fevers COMPARISON: Chest radiograph 09/28/2021 TECHNIQUE: One view of the chest XR/XR chest 1V FINDINGS/IMPRESSION: Increasing right basilar consolidation, with areas which appear more rounded on today's exam which raises suspicion for underlying pulmonary nodules in addition to consolidation, and recommend further characterization with contrast-enhanced CT chest. Interval improvement of previously seen pulmonary edema. No pneumothorax. Trace right pleural effusion similar to prior. Resolved left pleural effusion. Unchanged cardiomediastinal silhouette.
--- NOTE | ~2021-10-17 | XR_ITS ---
EXAMINATION: XR CHEST CLINICAL INFORMATION: Tachypnea. COMPARISON: 10/17/2021 chest radiograph. TECHNIQUE: Frontal view of the chest was obtained. FINDINGS: There is mild prominence of the pulmonary vasculature. Mild elevation right hemidiaphragm is again seen. The heart is mildly enlarged. The mediastinal structures are unremarkable. XR/XR chest 1V IMPRESSION: Mild congestion represents interval worsening from the previous study.
--- NOTE | 2021-10-17 10:33 | ECG_ITS ---
Test Reason : Weakness Blood Pressure : / mmHG Vent. Rate : 101 BPM Atrial Rate : 000 BPM P-R Int : 000 ms QRS Dur : 092 ms QT Int : 314 ms P-R-T Axes : 000 -25 076 degrees QTc Int : 407 ms Artifact in tracing Atrial fibrillation with rapid ventricular response Minimal voltage criteria for LVH, may be normal variant ( R in aVL ) Nonspecific T wave abnormality Abnormal ECG When compared with ECG of 01-OCT-2021 12:47, Nonspecific T wave abnormality has replaced inverted T waves in Anterolateral leads Referred By: Faith Mariano Electronically Signed By:KEN MARTINEZ
--- NOTE | 2021-10-17 10:45 | ED_ITS ---
HPI - Altered Mental Status General Chief Complaint: General Medical Stated Complaint: uti Time Seen by Provider: 10/17/21 10:32 Source: EMS, RN notes reviewed and old records reviewed Mode of arrival: EMS Limitations: altered mental status History of Present Illness HPI narrative: culture from [facility] on 10/14 shows ESBL+ E . Coli S to ertapanem has failed IV ceftriaxone and started macrobid on 10/16 comes in with worsening mentation and AMS MD complaint: altered mental status and decreased responsiveness Onset (ago): day(s) (1-2) Timing confirmed by: caregiver Severity: moderate Consistency of symptoms: getting Worse Context: recent fever and other (UTI) Associated symptoms: denies other symptoms Treatments prior to arrival: other (macrobid) Related Data Home Medications Medication Instructions Recorded Confirmed albuterol sulfate 90 mcg/actuation 2 puff INHALATION Q6H PRN 06/18/20 10/17/21 aerosol inhaler Lactobacil.acidophilus-Bifido.animalis 1 cap PO BID 10/17/21 10/17/21 5 billion cell sprinkle capsule (Probiotic) acetaminophen 325 mg tablet 650 mg PO Q4H PRN 10/17/21 10/17/21 bisacodyl 10 mg rectal suppository 10 mg [place] DAILY PRN 10/17/21 10/17/21 loperamide 2 mg tablet 2 mg PO Q6H PRN 10/17/21 10/17/21 metoprolol succinate 25 mg 25 mg PO DAILY 10/17/21 10/17/21 tablet,extended release 24 hr multivitamin with minerals 1 tab PO DAILY 10/17/21 10/17/21 nitrofurantoin 100 mg PO BID 10/17/21 10/17/21 monohydrate/macrocrystals 100 mg capsule (Macrobid) rivaroxaban 15 mg tablet (Xarelto) 15 mg PO BID 10/17/21 10/17/21 sennosides 8.6 mg tablet (senna) 17.2 mg PO DAILY PRN 10/17/21 10/17/21 trazodone 50 mg tablet 50 mg PO BEDTIME 10/17/21 10/17/21 Previous Rx's Medication Instructions Recorded Pull ups Extra LArge #120 ea 02/12/21 metformin 500 mg tablet 500 mg PO BID #180 tab 04/01/21 amlodipine 10 mg tablet 10 mg PO DAILY #90 tab 07/17/21 insulin glargine 100 unit/mL (3 30 unit (0.3 mL) SUBCUT BEDTIME 08/03/21 mL) subcutaneous pen (Lantus #12 ml Solostar U-100 Insulin) pregabalin 100 mg capsule 100 mg PO TID 30 Days #90 cap 08/03/21 simvastatin 10 mg tablet 10 mg PO BEDTIME #90 tab 08/27/21 clonazepam 1 mg tablet 1 mg PO BID 30 Days #60 tab 09/24/21 escitalopram oxalate 10 mg tablet 10 mg PO DAILY 90 Days #90 tab 09/24/21 Allergies Allergy/AdvReac Type Severity Reaction Status Date / Time sulfamethoxazole Allergy Intermediate rash face Verified 10/17/21 10:17 [From Bactrim] trimethoprim [From Bactrim] Allergy Intermediate rash face Verified 10/17/21 10:17 amoxicillin [Augmentin] Allergy Unknown Diarrhea Verified 10/17/21 10:17 clavulanic acid [Augmentin] Allergy Unknown Diarrhea Verified 10/17/21 10:17 Iodinated Contrast Media Allergy Unknown THROAT Verified 10/17/21 10:17 [IV Dye, Iodine Containing CLOSES Contrast ] UP/SWELLIN iodine [IODINE] Allergy Unknown ANAPHYLAXIS Verified 10/17/21 10:17 lisinopril [LISINOPRIL] Allergy Unknown UNKNOWN, Verified 10/17/21 10:17 cough, cough prednisone [PREDNISONE] Allergy Unknown INCREASE Verified 10/17/21 10:17 BLOOD PRESSURE quetiapine [From SEROQUEL] Allergy Unknown SWELLING Verified 10/17/21 10:17 X-ray dye Allergy Unknown Facial Verified 10/17/21 10:17 swelling/ trouble breathing apixaban [From Eliquis] AdvReac Intermediate Diarrhea Verified 10/17/21 10:17 Review of Systems Review of Systems: ROS unable to be obtained due to altered mental status [facility] Past Medical History Attestation statement: The following information was validated with the patient. Medical History Afib Hypercholesterolemia Lumbar degenerative disc disease Recurrent UTI Type 2 diabetes mellitus with hyperglycemia Surgical History History of lumpectomy of right breast History of tubal ligation Family History Family History (Updated 09/10/21 @ 14:40 by Katie Mccullough CMA) Father Diabetes Heart disease Mother Heart disease Son Opiate addiction Social History Social History Household Members: Children Household Members Other:: Brought to ER by son with whom she lives Housing: House Unable to assess alcohol history related to: Unknown Alcohol intake: never Patient Tobacco Use Status: Never used Tobacco e-Cigarette/Vaping Use: Never Used Second Hand Smoke Exposure: No Advance Directives: Yes Advance Directives on File: Yes Advance Directives Date on File: 01/09/21 service: No Current occupational status: retired Cognitive needs: Yes (Electric Wheel Chair) Hearing needs: Yes (Earring Aids) Vision needs: Yes (Glasses) Physical Exam ED Vital Signs: Vital Signs - 24 hr 10/17/21 10:17 10/17/21 11:21 10/17/21 12:06 Temperature 101.4 F H 97.7 F 98.3 F Pulse Rate 100 91 90 Respiratory Rate 35 H 35 H 32 H Blood Pressure 118/59 L 114/54 L 123/54 L Pulse Oximetry 92 92 92 10/17/21 13:06 Temperature 98.2 F Pulse Rate 99 Respiratory Rate 28 H Blood Pressure 129/61 Pulse Oximetry 94 BMI result Body Mass Index 32.3 Appearance: Lethargic confused moderate acute distress. Eyes: Pupils equal, round and reactive to light. ENT: Pharynx moderate dry MM Neck: Normal inspection. Neck supple. CVS:tachycardic irregular heart rate and rhythm. Pulses normal. Respiratory: No respiratory distress. Breath sounds normal. Abdomen: Soft and non-tender. Does not grimace to palpation Skin: Skin warm and dry. pale skin color. Normal skin turgor. Extremities: No lower extremity edema. Neuro: Confused, grossly weak will not participate in exam. Course Course Course Narrative: trop always elevated - will repeat IVF and IV antibiotics given will admit patient CT head no ICH seen MDM - Altered Mental Status MDM Narrative Medical decision making narrative: 76 yo female with hx of DVTs / afib on eliquis, ANABELL, UTI, DM, OA, HLD, recurrent UTI now ESBL +, KRISHAN comes from [facility] after dx of UTI was on IV ceftriaxone 10/14 and 10/15 culture showed ESBL + E. Coli given PO macrobid she has fevers and worsening mentation - labs, IVF x 2L, cultures, lactic acid, IV ertapenem ordered. Suspect UTI and encephalopathy from infection Lab Data Result diagrams: 10/17/21 10:45 10/17/21 10:45 Labs: Lab Results 10/17/21 10/17/21 10/17/21 Range/Units 10:45 10:45 10:45 WBC 23.1 H (4.8-10.8) X10*3/uL RBC 3.52 L (4.20-5.50) X10*6/uL Hgb 11.0 L (12.0-16.0) g/dl Hct 34.3 L (37.0-47.0) % MCV 97.4 (80.0-98.0) fL MCH 31.3 (27.0-33.0) pg MCHC 32.1 (31.0-35.0) g/dl RDW 14.6 (11.0-16.0) % Plt Count 310 (160-400) X10*3/uL MPV 9.5 (9.4-12.3) fL Immature Gran % (Auto) 1.1 H (0.0-0.4) % Neut % (Auto) 93.6 H (45-73) % Lymph % (Auto) 2.6 L (20-40) % [place] % (Auto) 2.5 (2-11) % Eos % (Auto) 0.0 (0-4) % Baso % (Auto) 0.2 (0-2) % Lymph # (Auto) 0.6 L (1.2-4.9) X10*3/uL [place] # (Auto) 0.6 (0.1-1.2) X10*3/uL Eos # (Auto) 0.0 (0.0-0.4) X10*3/uL Baso # (Auto) 0.0 (0.0-0.2) X10*3/uL Abs Immat Gran (auto) 0.25 H (0.00-0.03) X10*3/uL Absolute Neuts (auto) 21.7 H (2.0-8.3) x10*3/uL Absolute Nucleated RBC 0.000 (0.0-0.012) X10*3/uL Nucleated RBC % (auto) 0.0 (0.0-0.2) /100WBC PT (9.9-13.0) SEC INR (0.9-1.1) APTT (24.1-38.0) SEC VBG pH (7.32-7.43) VBG pCO2 mmHg VBG pO2 mmHg VBG HCO3 (22-26) mmol/L VBG O2 Saturation % VBG Base Excess mmol/L Sodium 144 (135-145) mmol/L Potassium 3.6 (3.3-5.1) mmol/L Chloride 105 (96-108) mmol/L Carbon Dioxide 26 (22-29) mmol/L Anion Gap 17 (12-20) BUN 21 H (9-16) mg/dL Creatinine 0.96 (0.5-1.4) mg/dL Estim Creat Clear Calc 55.5 Estimated GFR 57 Random Glucose 276 H (60-115) mg/dL Lactic Acid 3.5 H* (0.5-2.0) mmol/L Lactic Acid F/U @ 2Hr (0.5-2.0) mmol/L Calcium 8.6 D (8.4-10.2) mg/dL Magnesium 1.7 (1.6-2.6) mg/dL Total Bilirubin 0.7 (0.0-1.0) mg/dL Direct Bilirubin 0.3 (0.0-0.5) mg/dL AST 10 D (5-31) U/L ALT 10 (0-31) U/L Alkaline Phosphatase 76 D (39-117) U/L Troponin I High Sens (<3.5-17.0) ng/L Total Protein 6.7 (6.5-8.0) g/dL Albumin 3.3 L (3.5-5.0) g/dL COVID-19 (ELLEN) (Negative) COVID-19 Clin Com 10/17/21 10/17/21 10/17/21 Range/Units 10:45 10:50 11:20 WBC (4.8-10.8) X10*3/uL RBC (4.20-5.50) X10*6/uL Hgb (12.0-16.0) g/dl Hct (37.0-47.0) % MCV (80.0-98.0) fL MCH (27.0-33.0) pg MCHC (31.0-35.0) g/dl RDW (11.0-16.0) % Plt Count (160-400) X10*3/uL MPV (9.4-12.3) fL Immature Gran % (Auto) (0.0-0.4) % Neut % (Auto) (45-73) % Lymph % (Auto) (20-40) % [place] % (Auto) (2-11) % Eos % (Auto) (0-4) % Baso % (Auto) (0-2) % Lymph # (Auto) (1.2-4.9) X10*3/uL [place] # (Auto) (0.1-1.2) X10*3/uL Eos # (Auto) (0.0-0.4) X10*3/uL Baso # (Auto) (0.0-0.2) X10*3/uL Abs Immat Gran (auto) (0.00-0.03) X10*3/uL Absolute Neuts (auto) (2.0-8.3) x10*3/uL Absolute Nucleated RBC (0.0-0.012) X10*3/uL Nucleated RBC % (auto) (0.0-0.2) /100WBC PT 44.3 H (9.9-13.0) SEC INR 3.8 H D (0.9-1.1) APTT 53.5 H (24.1-38.0) SEC VBG pH 7.47 H (7.32-7.43) VBG pCO2 29 mmHg VBG pO2 85 mmHg VBG HCO3 21 L (22-26) mmol/L VBG O2 Saturation 96.0 % VBG Base Excess -0.9 mmol/L Sodium (135-145) mmol/L Potassium (3.3-5.1) mmol/L Chloride (96-108) mmol/L Carbon Dioxide (22-29) mmol/L Anion Gap (12-20) BUN (9-16) mg/dL Creatinine (0.5-1.4) mg/dL Estim Creat Clear Calc Estimated GFR Random Glucose (60-115) mg/dL Lactic Acid (0.5-2.0) mmol/L Lactic Acid F/U @ 2Hr (0.5-2.0) mmol/L Calcium (8.4-10.2) mg/dL Magnesium (1.6-2.6) mg/dL Total Bilirubin (0.0-1.0) mg/dL Direct Bilirubin (0.0-0.5) mg/dL AST (5-31) U/L ALT (0-31) U/L Alkaline Phosphatase (39-117) U/L Troponin I High Sens 263.4 H* D (<3.5-17.0) ng/L Total Protein (6.5-8.0) g/dL Albumin (3.5-5.0) g/dL COVID-19 (ELLEN) (Negative) COVID-19 Clin Com 10/17/21 10/17/21 10/17/21 Range/Units 11:20 13:02 13:02 WBC (4.8-10.8) X10*3/uL RBC (4.20-5.50) X10*6/uL Hgb (12.0-16.0) g/dl Hct (37.0-47.0) % MCV (80.0-98.0) fL MCH (27.0-33.0) pg MCHC (31.0-35.0) g/dl RDW (11.0-16.0) % Plt Count (160-400) X10*3/uL MPV (9.4-12.3) fL Immature Gran % (Auto) (0.0-0.4) % Neut % (Auto) (45-73) % Lymph % (Auto) (20-40) % [place] % (Auto) (2-11) % Eos % (Auto) (0-4) % Baso % (Auto) (0-2) % Lymph # (Auto) (1.2-4.9) X10*3/uL [place] # (Auto) (0.1-1.2) X10*3/uL Eos # (Auto) (0.0-0.4) X10*3/uL Baso # (Auto) (0.0-0.2) X10*3/uL Abs Immat Gran (auto) (0.00-0.03) X10*3/uL Absolute Neuts (auto) (2.0-8.3) x10*3/uL Absolute Nucleated RBC (0.0-0.012) X10*3/uL Nucleated RBC % (auto) (0.0-0.2) /100WBC PT (9.9-13.0) SEC INR (0.9-1.1) APTT (24.1-38.0) SEC VBG pH (7.32-7.43) VBG pCO2 mmHg VBG pO2 mmHg VBG HCO3 (22-26) mmol/L VBG O2 Saturation % VBG Base Excess mmol/L Sodium (135-145) mmol/L Potassium (3.3-5.1) mmol/L Chloride (96-108) mmol/L Carbon Dioxide (22-29) mmol/L Anion Gap (12-20) BUN (9-16) mg/dL Creatinine (0.5-1.4) mg/dL Estim Creat Clear Calc Estimated GFR Random Glucose (60-115) mg/dL Lactic Acid (0.5-2.0) mmol/L Lactic Acid F/U @ 2Hr 2.5 H* (0.5-2.0) mmol/L Calcium (8.4-10.2) mg/dL Magnesium (1.6-2.6) mg/dL Total Bilirubin (0.0-1.0) mg/dL Direct Bilirubin (0.0-0.5) mg/dL AST (5-31) U/L ALT (0-31) U/L Alkaline Phosphatase (39-117) U/L Troponin I High Sens 250.0 H* (<3.5-17.0) ng/L Total Protein (6.5-8.0) g/dL Albumin (3.5-5.0) g/dL COVID-19 (ELLEN) Negative (Negative) COVID-19 Clin Com See Note ECG Data ECG #1: Attestation: I personally reviewed and interpreted this ECG as follows: ECG interpretation date: 10/17/21 ECG interpretation time: 11:06 Interpretation: Rate: 101 Rhythm: irregular - afib with RVR [place]: normal Normal QRS complex. ST T wave : nonspecific no MIRANDA qTC: normal prior studies: no acute ischemia The study has been interpreted contemporaneously by me. . Critical Care Time Critical Care Time Critical Care Time: Yes Total Critical Care Time: 45 Attestation: 2L of IVF, review of records, consult to SNF to get cultures results, admission I attest to this time spent taking care of the patient Discharge Plan Discharge Clinical Impression: UTI due to extended-spectrum beta lactamase (ESBL) producing Escherichia coli, Acute encephalopathy, Elevated troponin, Acidosis, lactic Fever Qualifiers: Fever type: unspecified Qualified Code(s): R50.9 - Fever, unspecified Patient Disposition: Admitted As Inpatient
[2021-10-17 10:52] LABS: MANUAL DIFF FLAG NO
[2021-10-17 10:58] LABS: VBG Base Excess -0.9 mmol/L; VBG HCO3 21 mmol/L (22-26); VBG pCO2 29 mmHg; VBG pH 7.47 (7.32-7.43); VBG pO2 85 mmHg
[2021-10-17 11:00] LABS: Venous Blood Gas Refer to POC result
[2021-10-17 11:03] LABS: Basophils Percent Auto 0.2 % (0-2); Hematocrit 34.3 % (37.0-47.0); Imm Gran Abs Auto 0.25 X10*3/uL (0.00-0.03); Imm Gran Pct Auto 1.1 % (0.0-0.4); Lymphocytes Absolute Auto 0.6 X10*3/uL (1.2-4.9); Lymphocytes Percent Auto 2.6 % (20-40); Mean Corpuscular HGB Conc 32.1 g/dl (31.0-35.0); Mean Corpuscular Hemoglobin 31.3 pg (27.0-33.0); Mean Corpuscular Volume 97.4 fL (80.0-98.0); Mean Platelet Volume 9.5 fL (9.4-12.3); Monocytes Absolute Auto 0.6 X10*3/uL (0.1-1.2); Monocytes Percent Auto 2.5 % (2-11); Neutrophils Absolute Auto 21.7 x10*3/uL (2.0-8.3); Neutrophils Percent Auto 93.6 % (45-73); Platelet Count 310 X10*3/uL (160-400); Red Blood Count 3.52 X10*6/uL (4.20-5.50); Red Cell Distribution Width 14.6 % (11.0-16.0); SCAN SMEAR FLAG 1; White Blood Count 23.1 X10*3/uL (4.8-10.8)
[2021-10-17] MEDS: Acetaminophen Supp 650 MG SUPP.RECT PR (11:04)
[2021-10-17] MEDS: ondansetron HCL 4 MG/2 ML VIAL IVPUSH (11:07)
[2021-10-17] MEDS: Ertapenem Sodium 1 GM in 0.9 % Sodium Chloride 50 ML IV (11:08)
[2021-10-17 11:20] LABS: Alanine Aminotransferase 10 U/L (0-31); Albumin Level 3.3 g/dL (3.5-5.0); Alkaline Phosphatase 76 U/L (39-117); Anion Gap 17 (12-20); Aspartate Amino Transferase 10 U/L (5-31); Bilirubin Direct 0.3 mg/dL (0.0-0.5); Bilirubin Total 0.7 mg/dL (0.0-1.0); Blood Urea Nitrogen 21 mg/dL (9-16); Calcium 8.6 mg/dL (8.4-10.2); Carbon Dioxide 26 mmol/L (22-29); Chloride 105 mmol/L (96-108); Creatinine Clr Calc Pharmacy 55.5; Estimated Glomerular Filt Rate 57; Glucose Random 276 mg/dL (60-115); Magnesium 1.7 mg/dL (1.6-2.6); Potassium 3.6 mmol/L (3.3-5.1); Sodium 144 mmol/L (135-145); Total Protein 6.7 g/dL (6.5-8.0)
[2021-10-17 11:27] LABS: Lactic Acid 3.5 mmol/L (0.5-2.0)
[2021-10-17 11:28] LABS: Troponin-I High Sensitivity 263.4 ng/L (<3.5-17.0)
--- NOTE | 2021-10-17 11:30 | PHA.MEDREC ---
MED REC COMPLETE, NO ISSUES Pharmacy Consult ? Medication Reconciliation Pharmacy has completed the medication reconciliation.
[2021-10-17 11:46] LABS: COVID-19 Test Negative (Negative); IDNOW Serial# 16C4AD1C
[2021-10-17 11:50] LABS: INTERNATIONAL NORM RATIO 3.8 (0.9-1.1); Prothrombin Time 44.3 SEC (9.9-13.0)
[2021-10-17 11:52] LABS: Partial Thromboplastin Time 53.5 SEC (24.1-38.0)
[2021-10-17] MEDS: 0.9 % Sodium Chloride 1,000 ML 999 ML IVCONT ×2 (12:03→12:57)
[2021-10-17 12:51] LABS: Reflex Lactate? Lactic Acid Added
--- NOTE | 2021-10-17 13:07 | PM.IMHP ---
History of Present Illness Date of Service: 10/17/21 Chief Complaint: AMS 76 year old women presenting from home with altered mental status and was found to have ESBL Ecoli UTI from cx on 10/14/[address] [facility]. She was initially treated with Macrobid at [facility]. She was confused and unable to give accurate information. She was noted to have a fever as high as 101.4, tachypnea, leukocytosis and elevated lactic acid of 3.5. Her troponin was also noted to be elevated at 263.4 with no complaints of chest pain. She was given a dose of ertapenem in the ED and a liter of IV fluids. She will be admitted for further management of ESBL UTI Review of Systems Review of Systems: Yes Unobtainable due to mental status FOR[facility], [facility] Medical History Afib Hypercholesterolemia Lumbar degenerative disc disease Recurrent UTI Type 2 diabetes mellitus with hyperglycemia Family History (Updated 09/10/21 @ 14:40 by Katie Mccullough CMA) Father Diabetes Heart disease Mother Heart disease Son Opiate addiction Surgical History History of lumpectomy of right breast History of tubal ligation Social History Household Members: Children Household Members Other:: Brought to ER by son with whom she lives Housing: House Unable to assess alcohol history related to: Unknown Alcohol intake: never Patient Tobacco Use Status: Never used Tobacco e-Cigarette/Vaping Use: Never Used Second Hand Smoke Exposure: No Advance Directives: Yes Advance Directives on File: Yes Advance Directives Date on File: 01/09/21 service: No Current occupational status: retired Cognitive needs: Yes (Electric Wheel Chair) Hearing needs: Yes (Earring Aids) Vision needs: Yes (Glasses) Meds Allergies Allergy/AdvReac Type Severity Reaction Status Date / Time sulfamethoxazole Allergy Intermediate rash face Verified 10/17/21 10:17 [From Bactrim] trimethoprim [From Bactrim] Allergy Intermediate rash face Verified 10/17/21 10:17 amoxicillin [Augmentin] Allergy Unknown Diarrhea Verified 10/17/21 10:17 clavulanic acid [Augmentin] Allergy Unknown Diarrhea Verified 10/17/21 10:17 Iodinated Contrast Media Allergy Unknown THROAT Verified 10/17/21 10:17 [IV Dye, Iodine Containing CLOSES Contrast ] UP/SWELLIN iodine [IODINE] Allergy Unknown ANAPHYLAXIS Verified 10/17/21 10:17 lisinopril [LISINOPRIL] Allergy Unknown UNKNOWN, Verified 10/17/21 10:17 cough, cough prednisone [PREDNISONE] Allergy Unknown INCREASE Verified 10/17/21 10:17 BLOOD PRESSURE quetiapine [From SEROQUEL] Allergy Unknown SWELLING Verified 10/17/21 10:17 X-ray dye Allergy Unknown Facial Verified 10/17/21 10:17 swelling/ trouble breathing apixaban [From Eliquis] AdvReac Intermediate Diarrhea Verified 10/17/21 10:17 Active Medications: Current Medications Pharmacy Consult (Consult Rx Perform Med Rec) 1 each MISCELLANE ONCE PRN PRN Reason: Consult order Home Medications Medication Instructions Recorded Confirmed Last Taken Type albuterol sulfate 90 mcg/actuation 2 puff INHALATION Q6H PRN 06/18/20 10/17/21 10/17/21 History aerosol inhaler Lactobacil.acidophilus-Bifido.animalis 1 cap PO BID 10/17/21 10/17/21 10/16/21 History 5 billion cell sprinkle capsule (Probiotic) acetaminophen 325 mg tablet 650 mg PO Q4H PRN 10/17/21 10/17/21 10/17/21 History bisacodyl 10 mg rectal suppository 10 mg [place] DAILY PRN 10/17/21 10/17/21 Unknown History loperamide 2 mg tablet 2 mg PO Q6H PRN 10/17/21 10/17/21 10/09/21 History metoprolol succinate 25 mg 25 mg PO DAILY 10/17/21 10/17/21 10/16/21 History tablet,extended release 24 hr multivitamin with minerals 1 tab PO DAILY 10/17/21 10/17/21 10/16/21 History nitrofurantoin 100 mg PO BID 10/17/21 10/17/21 10/16/21 History monohydrate/macrocrystals 100 mg capsule (Macrobid) rivaroxaban 15 mg tablet (Xarelto) 15 mg PO BID 10/17/21 10/17/21 10/17/21 History sennosides 8.6 mg tablet (senna) 17.2 mg PO DAILY PRN 10/17/21 10/17/21 Unknown History trazodone 50 mg tablet 50 mg PO BEDTIME 10/17/21 10/17/21 10/16/21 History Physical Exam Vital Signs and Narrative: Vital Signs: Last Vital Signs Temp 98.2 F 10/17/21 13:06 Pulse 99 10/17/21 13:06 Resp 28 H 10/17/21 13:06 BP 129/61 10/17/21 13:06 Pulse Ox 94 10/17/21 13:06 BMI result Body Mass Index 32.3 Appearing in no acute distress head is normocephalic atraumatic eyes pupils are PERRLA sclera is anicteric mouth throat mucous membranes are intact and moist neck is supple no lymphadenopathy, no JVD noted lung sounds are clear to auscultation heart regular rate rhythm, clear S1, S2 positive bowel sounds, abdomen is soft, nontender neuro patient is alert x3, no focal deficits Results Labs CBC and Chem 7: 10/17/21 10:45 10/17/21 10:45 Labs: Laboratory Results - last 24 hr 10/17/21 10/17/21 10/17/21 10:45 10:45 10:45 MCV 97.4 MCH 31.3 MCHC 32.1 RDW 14.6 Plt Count 310 MPV 9.5 Immature Gran % (Auto) 1.1 H Neut % (Auto) 93.6 H Lymph % (Auto) 2.6 L [place] % (Auto) 2.5 Eos % (Auto) 0.0 Baso % (Auto) 0.2 Lymph # (Auto) 0.6 L [place] # (Auto) 0.6 Eos # (Auto) 0.0 Baso # (Auto) 0.0 Abs Immat Gran (auto) 0.25 H Absolute Neuts (auto) 21.7 H Absolute Nucleated RBC 0.000 Nucleated RBC % (auto) 0.0 PT INR APTT VBG pH VBG pCO2 VBG pO2 VBG HCO3 VBG O2 Saturation VBG Base Excess Anion Gap 17 Estim Creat Clear Calc 55.5 Estimated GFR 57 Random Glucose 276 H Lactic Acid 3.5 H* Calcium 8.6 D Magnesium 1.7 Total Bilirubin 0.7 Direct Bilirubin 0.3 AST 10 D ALT 10 Alkaline Phosphatase 76 D Troponin I High Sens Total Protein 6.7 Albumin 3.3 L COVID-19 (ELLEN) COVID-19 Positron Com 10/17/21 10/17/21 10/17/21 10:45 10:50 11:20 MCV MCH MCHC RDW Plt Count MPV Immature Gran % (Auto) Neut % (Auto) Lymph % (Auto) [place] % (Auto) Eos % (Auto) Baso % (Auto) Lymph # (Auto) [place] # (Auto) Eos # (Auto) Baso # (Auto) Abs Immat Gran (auto) Absolute Neuts (auto) Absolute Nucleated RBC Nucleated RBC % (auto) PT 44.3 H INR 3.8 H D APTT 53.5 H VBG pH 7.47 H VBG pCO2 29 VBG pO2 85 VBG HCO3 21 L VBG O2 Saturation 96.0 VBG Base Excess -0.9 Anion Gap Estim Creat Clear Calc Estimated GFR Random Glucose Lactic Acid Calcium Magnesium Total Bilirubin Direct Bilirubin AST ALT Alkaline Phosphatase Troponin I High Sens 263.4 H* D Total Protein Albumin COVID-19 (ELLEN) COVID-19 Positron Com 10/17/21 11:20 MCV MCH MCHC RDW Plt Count MPV Immature Gran % (Auto) Neut % (Auto) Lymph % (Auto) [place] % (Auto) Eos % (Auto) Baso % (Auto) Lymph # (Auto) [place] # (Auto) Eos # (Auto) Baso # (Auto) Abs Immat Gran (auto) Absolute Neuts (auto) Absolute Nucleated RBC Nucleated RBC % (auto) PT INR APTT VBG pH VBG pCO2 VBG pO2 VBG HCO3 VBG O2 Saturation VBG Base Excess Anion Gap Estim Creat Clear Calc Estimated GFR Random Glucose Lactic Acid Calcium Magnesium Total Bilirubin Direct Bilirubin AST ALT Alkaline Phosphatase Troponin I High Sens Total Protein Albumin COVID-19 (ELLEN) Negative COVID-19 Clin Com See Note Imaging Radiologist's Impressions: Impressions Chest X-Ray 10/17/21 10:57 FINDINGS/IMPRESSION: Increasing right basilar consolidation, with areas which appear more rounded on today's exam which raises suspicion for underlying pulmonary nodules in addition to consolidation, and recommend further characterization with contrast-enhanced CT chest. Interval improvement of previously seen pulmonary edema. No pneumothorax. Trace right pleural effusion similar to prior. Resolved left pleural effusion. Unchanged cardiomediastinal silhouette. Assessment and Plan (1) UTI due to extended-spectrum beta lactamase (ESBL) producing Escherichia coli: Status: Acute Plan 76 year old women admitted with severe sepsis secondary to ESBL UTI Severe sepsis secondary to ESBL UTI Fever, Leukocytosis tachypnea, lactic acidosis Follow final cx Start Ertapenem ID consult Elevated troponin Similar to previous but much lower Will consult cardiology so they are aware DVT, noted on previous admission on xarelto HTN continue metoprolol, amlodipine History of a diastolic CHF no exacerbation not on lasix History of depression Continue home escitalopram History of anxiety continue klonopin History of diabetes sliding scale, ada diet History of Hyperlipidemia Statin DVT prophylaxis with Xarelto Attending Dr. Burt Full code Patient likely requires 2 midnights in the hospital for treatment of ESBL a positive UTI requiring IV ertapenem and further follow-up by the infectious disease provider Quality Stroke Does the patient have a stroke diagnosis?: No VTE Prior VTE?: No VTE Risk Level:: Medical - moderate - high VTE Device Contraindication: Treatment Not Indicated VTE Drug Contraindication: N/A - Med Ordered
[2021-10-17 13:30] LABS: ~Lactic Acid-LAB USE ONLY 2.5 mmol/L (0.5-2.0)
[2021-10-17 15:04] LABS: Reflex Lactate? 2 Y
[2021-10-17 15:43] LABS: ~Lactic Acid-LAB USE ONLY 1.8 mmol/L (0.5-2.0)
[2021-10-17 17:21] LABS: Appearance Urine CLEAR; Color Urine DK YELLOW; Glucose Urine UA NEG (NEG); Leukocyte Esterase Urine NEG (NEG); Nitrite Urine NEG (NEG); Specific Gravity - Urine >= 1.030 (1.005-1.025); UACC Culture Trigger NO; Urine Blood NEG (NEG); Urine Ketones 5 MG/DL (NEG); Urine Protein 1+ MG/DL (NEG-TRACE)
[2021-10-17 17:35] LABS: RBC Urine 0-2 /HPF (0); Squamous Epithelial Cell Urine 1+ /LPF
[2021-10-17 17:36] LABS: Amorphous Sediment Urine 1+ /LPF; Bacteria Urine TRACE /LPF; Mucus Urine TRACE /LPF
[2021-10-17 17:53] LABS: Glucose, Whole Blood 124 mg/dL (60-115)
--- NOTE | 2021-10-17 18:53 | PC.NURSE ---
PATIENT WAS NOT ABLE TO EAT REGULAR DINNER ,RN WAS NOTIFIED PATIENT WAS GIVEN A PUREE MEAL AND DID FINE WITH IT ,PATIENT WAS NOT ABLE TO FEED SELF AND REQUIRED 1:1 ASST FOR MEALS PATIENT ATE 100% OF MEAL AND DRANK 360 ML LIQUIDS .
--- NOTE | 2021-10-17 19:10 | PC.NURSE ---
Took report from Radha to assume care of Pt.
[2021-10-17 21:15] LABS: Glucose, Whole Blood 233 mg/dL (60-115)
[2021-10-17] MEDS: Insulin Glargine,Hum.rec.anlog 100 UNIT/ML 10 ML VIAL 30 UNIT SUBCUT (21:22)
[2021-10-17] MEDS: Atorvastatin Calcium 10 MG TABLET PO (21:24)
[2021-10-17] MEDS: Insulin Lispro 100 UNIT/ML 3 ML VIAL SUBCUT (21:24)
[2021-10-17] MEDS: traZODone HCL 50 MG TABLET PO (21:24)
[2021-10-17] MEDS: clonazePAM 1 MG TABLET PO (21:24)
[2021-10-17] MEDS: Pregabalin 100 MG CAPSULE PO (22:15)
[2021-10-17] MEDS: Rivaroxaban 15 MG TABLET PO (22:15)
--- NOTE | 2021-10-17 23:29 | W.PM.IDCN ---
History of Present Illness Data of Consult Service Date: 10/17/21 Requesting physician: Jeanette Singer Primary Care Provider: Jorje Perrin MD HPI Reason for consult: confusion She presents to hospital with confusion. She had E coli 09/29 rosenthal sensitive and had recheck 10/09 ESBL UTI. She has no fever or chills Review of Systems Review of Systems: Yes Unobtainable due to mental condition PMFSH Past Medical History Medical History Afib Hypercholesterolemia Lumbar degenerative disc disease Recurrent UTI Type 2 diabetes mellitus with hyperglycemia Family History Family History Father Diabetes Heart disease Mother Heart disease Son Opiate addiction Family history: reviewed and not pertinent Surgical History Surgical History History of lumpectomy of right breast History of tubal ligation Social History Social History Household Members: Children Household Members Other:: Brought to ER by son with whom she lives Housing: House Unable to assess alcohol history related to: Unknown Alcohol intake: never Patient Tobacco Use Status: Never used Tobacco e-Cigarette/Vaping Use: Never Used Second Hand Smoke Exposure: No Advance Directives: Yes Advance Directives on File: Yes Advance Directives Date on File: 01/09/21 service: No Current occupational status: retired Cognitive needs: Yes (Electric Wheel Chair) Hearing needs: Yes (Earring Aids) Vision needs: Yes (Glasses) Meds Allergies Allergy/AdvReac Type Severity Reaction Status Date / Time sulfamethoxazole Allergy Intermediate rash face Verified 10/17/21 10:17 [From Bactrim] trimethoprim [From Bactrim] Allergy Intermediate rash face Verified 10/17/21 10:17 amoxicillin [Augmentin] Allergy Unknown Diarrhea Verified 10/17/21 10:17 clavulanic acid [Augmentin] Allergy Unknown Diarrhea Verified 10/17/21 10:17 Iodinated Contrast Media Allergy Unknown THROAT Verified 10/17/21 10:17 [IV Dye, Iodine Containing CLOSES Contrast ] UP/SWELLIN iodine [IODINE] Allergy Unknown ANAPHYLAXIS Verified 10/17/21 10:17 lisinopril [LISINOPRIL] Allergy Unknown UNKNOWN, Verified 10/17/21 10:17 cough, cough prednisone [PREDNISONE] Allergy Unknown INCREASE Verified 10/17/21 10:17 BLOOD PRESSURE quetiapine [From SEROQUEL] Allergy Unknown SWELLING Verified 10/17/21 10:17 X-ray dye Allergy Unknown Facial Verified 10/17/21 10:17 swelling/ trouble breathing apixaban [From Eliquis] AdvReac Intermediate Diarrhea Verified 10/17/21 10:17 Active Medications: Current Medications Acetaminophen (Acetaminophen 325 Mg Tablet) 650 mg PO Q4H PRN PRN Reason: Fever Or Pain Albuterol Sulfate (Albuterol Sulfate 90 Mcg 8 Gm Inhaler) 2 puff INHALE Q6H PRN PRN Reason: Shortness Of Breath Or Wheezing Amlodipine Besylate (Amlodipine Besylate 10 Mg Tablet) 10 mg PO DAILY [facility]; Protocol Atorvastatin Calcium (Atorvastatin Calcium 10 Mg Tablet) 10 mg PO BEDTIME [facility] Last Admin: 10/17/21 21:24 Dose: 10 mg Documented by: Bisacodyl (Bisacodyl 10 Mg Supp.Rect) 10 mg [place] DAILY PRN PRN Reason: Constipation Clonazepam (Clonazepam 1 Mg Tablet) 1 mg PO BID [facility] Last Admin: 10/17/21 21:24 Dose: 1 mg Documented by: Dextrose (Dextrose 50 % 25 Gm/50 Ml Syringe) 25 gm IVPUSH Q15M PRN; Protocol PRN Reason: per Hypoglycemia Standing Ord. Escitalopram Oxalate (Escitalopram Oxalate 10 Mg Tablet) 10 mg PO DAILY [facility] Glucose (Glucose Gel 15 Gm Gel..Gram.) 15 gm PO Q15M PRN; Protocol PRN Reason: per Hypoglycemia Standing Ord. Meropenem 1 gm/ Sodium (Chloride) 100 mls @ 200 mls/hr IV Q8H [facility] Insulin Glargine (Insulin Glargine,Hum.Rec.Anlog 100 Unit/Ml 10 Ml Vial) 30 unit SUBCUT BEDTIME [facility] Last Admin: 10/17/21 21:22 Dose: 30 unit Documented by: Insulin Human Lispro (Insulin Lispro 100 Unit/Ml 3 Ml Vial) 0 unit SUBCUT QIDACHS [facility]; Protocol Last Admin: 10/17/21 21:24 Dose: 4 unit Documented by: Metoprolol Succinate (Metoprolol Succinate Er 25 Mg Tab.Er.24h) 25 mg PO DAILY [facility]; Protocol Multivitamins/Vitamin C (Multivitamin Tablet) 1 tab PO DAILY [facility] Ondansetron HCl (Ondansetron Hcl 4 Mg/2 Ml Vial) 4 mg IVPUSH Q8H PRN PRN Reason: Nausea and Vomiting Pharmacy Consult (Consult Rx Perform Med Rec) 1 each MISCELLANE ONCE PRN PRN Reason: Consult order Pregabalin (Pregabalin 100 Mg Capsule) 100 mg PO TID [facility] Last Admin: 10/17/21 22:15 Dose: 100 mg Documented by: Rivaroxaban (Rivaroxaban 15 Mg Tablet) 15 mg PO BID [facility] Last Admin: 10/17/21 22:15 Dose: 15 mg Documented by: Senna (Sennosides 8.6 Mg Tablet) 17.2 mg PO DAILY PRN PRN Reason: Constipation Sodium Chloride (0.9 % Sodium Chloride Flush 3 Ml Syringe) 3 ml IVFLUSH QSHIFT [facility] Last Admin: 10/17/21 23:18 Dose: Not Given Documented by: Trazodone HCl (Trazodone Hcl 50 Mg Tablet) 50 mg PO BEDTIME [facility] Last Admin: 10/17/21 21:24 Dose: 50 mg Documented by: Home Medications Medication Instructions Recorded Confirmed Last Taken Type albuterol sulfate 90 mcg/actuation 2 puff INHALATION Q6H PRN 06/18/20 10/17/21 10/17/21 History aerosol inhaler Lactobacil.acidophilus-Bifido.animalis 1 cap PO BID 10/17/21 10/17/21 10/16/21 History 5 billion cell sprinkle capsule (Probiotic) acetaminophen 325 mg tablet 650 mg PO Q4H PRN 10/17/21 10/17/21 10/17/21 History bisacodyl 10 mg rectal suppository 10 mg [place] DAILY PRN 10/17/21 10/17/21 Unknown History loperamide 2 mg tablet 2 mg PO Q6H PRN 10/17/21 10/17/21 10/09/21 History metoprolol succinate 25 mg 25 mg PO DAILY 10/17/21 10/17/21 10/16/21 History tablet,extended release 24 hr multivitamin with minerals 1 tab PO DAILY 10/17/21 10/17/21 10/16/21 History nitrofurantoin 100 mg PO BID 10/17/21 10/17/21 10/16/21 History monohydrate/macrocrystals 100 mg capsule (Macrobid) rivaroxaban 15 mg tablet (Xarelto) 15 mg PO BID 10/17/21 10/17/21 10/17/21 History sennosides 8.6 mg tablet (senna) 17.2 mg PO DAILY PRN 10/17/21 10/17/21 Unknown History trazodone 50 mg tablet 50 mg PO BEDTIME 10/17/21 10/17/21 10/16/21 History Physical Exam Vital Signs: Vital Signs: Last Vital Signs Temp 98.9 F 10/17/21 17:28 Pulse 114 H 10/17/21 22:19 Resp 15 10/17/21 22:19 BP 133/56 L 10/17/21 22:19 Pulse Ox 93 10/17/21 22:19 BMI result Body Mass Index 32.3 Const: General: cooperative HEENT: Head: Yes normal to inspection Mouth: Normal oral and palatal mucosa present Resp: Effort & Inspection: normal respiratory effort Cardio: Rate: regular rate Rhythm: regular rhythm GI: Palpation (GI): Soft to palpation and nontender Results Labs CBC & Chem 7: 10/17/21 10:45 10/17/21 10:45 Labs: Short CBC 10/17/21 Range/Units 10:45 WBC 23.1 H (4.8-10.8) X10*3/uL Hgb 11.0 L (12.0-16.0) g/dl Hct 34.3 L (37.0-47.0) % Plt Count 310 (160-400) X10*3/uL BMP 10/17/21 10:45 Sodium 144 Potassium 3.6 Chloride 105 Carbon Dioxide 26 BUN 21 H Creatinine 0.96 Calcium 8.6 D Liver Function 10/17/21 Range/Units 10:45 Total Bilirubin 0.7 (0.0-1.0) mg/dL Direct Bilirubin 0.3 (0.0-0.5) mg/dL AST 10 D (5-31) U/L ALT 10 (0-31) U/L Alkaline Phosphatase 76 D (39-117) U/L Albumin 3.3 L (3.5-5.0) g/dL Urine 10/17/21 Range/Units 17:08 Urine Color DK YELLOW Urine Appearance CLEAR Urine pH 5.0 (5.0-8.0) Ur Specific [place] >= 1.030 H (1.005-1.025) Urine Protein 1+ H (NEG-TRACE) MG/DL Urine Glucose (UA) NEG (NEG) MG/DL Assessment and Plan (1) Fever: Qualifiers: Fever type: unspecified Qualified Code(s): R50.9 - Fever, unspecified Status: Acute (2) UTI due to extended-spectrum beta lactamase (ESBL) producing Escherichia coli: Status: Acute confusion is likely due to ESBL UTI Plan Would give IV Ertapenem for 10 days as long as sensitive.
[2021-10-18] VITALS (13 sets, daily range): BP systolic 113–158; BP diastolic 61–83; PULSE 100–139; RESP 12–44; TEMP 36.3–37.8; O2SAT 93–95
--- NOTE | 2021-10-18 | ECG_ITS ---
Test Reason : TACHYCARDIA Blood Pressure : / mmHG Vent. Rate : 104 BPM Atrial Rate : 000 BPM P-R Int : 000 ms QRS Dur : 090 ms QT Int : 326 ms P-R-T Axes : 000 -27 160 degrees QTc Int : 428 ms Atrial fibrillation with rapid ventricular response with premature ventricular or aberrantly conducted complexes Nonspecific ST and T wave abnormality Abnormal ECG When compared with ECG of 17-OCT-2021 10:56, No significant change was found Referred By: Ander Mooney Electronically Signed By:KEN MARTINEZ
--- NOTE | 2021-10-18 | ECG_ITS ---
Test Reason : Rapid HR Blood Pressure : / mmHG Vent. Rate : 138 BPM Atrial Rate : 000 BPM P-R Int : 000 ms QRS Dur : 088 ms QT Int : 292 ms P-R-T Axes : 000 -27 164 degrees QTc Int : 442 ms Atrial fibrillation with rapid ventricular response Nonspecific ST and T wave abnormality Abnormal ECG When compared with ECG of 18-OCT-2021 05:57, No significant change was found Referred By: Jeanette Singer Electronically Signed By:Edison Maddox
[2021-10-18] MEDS: Metoprolol Tartrate 5 MG/5 ML VIAL IVPUSH ×2 (02:57→06:09)
[2021-10-18] MEDS: 0.9 % Sodium Chloride 1,000 ML 75 ML IVCONT ×2 (02:58→19:24)
--- NOTE | 2021-10-18 03:24 | PC.NURSE ---
Pt sleeping, heart rate 120-140's, BP WNL Hospitalist made aware, ordered 5mg Metropolol.
--- NOTE | 2021-10-18 06:03 | PM.EVENT ---
Event Note Date of Service: 10/18/21 Event Note: Afib with RVR: pt's heart rate fluctuating between 110 to 150s. Patient is being kept on metoprolol 5 mg IV p.r.n.. Continue home Toprol-XL. Cardiology follow-up
--- NOTE | 2021-10-18 06:25 | PC.NURSE ---
Pt heart rate 120's- 150's, BP WNL, Hospitalist made aware, Metropolol ordered and given.
[2021-10-18 06:39] LABS: MANUAL DIFF FLAG NO
[2021-10-18 06:50] LABS: Basophils Percent Auto 0.2 % (0-2); Eosinophils Percent Auto 0.3 % (0-4); Hemoglobin 9.9 g/dl (12.0-16.0); Imm Gran Abs Auto 0.06 X10*3/uL (0.00-0.03); Imm Gran Pct Auto 0.5 % (0.0-0.4); Lymphocytes Absolute Auto 0.7 X10*3/uL (1.2-4.9); Lymphocytes Percent Auto 5.8 % (20-40); Mean Corpuscular HGB Conc 30.9 g/dl (31.0-35.0); Mean Corpuscular Hemoglobin 30.5 pg (27.0-33.0); Mean Corpuscular Volume 98.5 fL (80.0-98.0); Mean Platelet Volume 9.7 fL (9.4-12.3); Monocytes Absolute Auto 0.5 X10*3/uL (0.1-1.2); Monocytes Percent Auto 4.1 % (2-11); Neutrophils Absolute Auto 10.7 x10*3/uL (2.0-8.3); Neutrophils Percent Auto 89.1 % (45-73); Platelet Count 239 X10*3/uL (160-400); Red Blood Count 3.25 X10*6/uL (4.20-5.50); Red Cell Distribution Width 14.5 % (11.0-16.0)
[2021-10-18 07:08] LABS: Glucose, Whole Blood 145 mg/dL (60-115)
[2021-10-18 07:17] LABS: Anion Gap 11 (12-20); Blood Urea Nitrogen 15 mg/dL (9-16); Carbon Dioxide 27 mmol/L (22-29); Chloride 110 mmol/L (96-108); Creatinine Clr Calc Pharmacy 83.3; Estimated Glomerular Filt Rate > 60; Glucose Random 178 mg/dL (60-115); Potassium 3.6 mmol/L (3.3-5.1); Sodium 144 mmol/L (135-145)
[2021-10-18] MEDS: Pregabalin 100 MG CAPSULE PO (09:10)
[2021-10-18] MEDS: clonazePAM 1 MG TABLET PO (09:10)
[2021-10-18] MEDS: amLODIPine Besylate 10 MG TABLET PO (09:10)
[2021-10-18] MEDS: Escitalopram Oxalate 10 MG TABLET PO (09:10)
[2021-10-18] MEDS: dilTIAZem HCL 50 MG/10 ML VIAL IVPUSH (09:32)
[2021-10-18] MEDS: dilTIAZem HCL 125 MG in 0.9 % Sodium Chloride 100 ML 10 MG IVCONT ×2 (09:36→19:24)
--- NOTE | 2021-10-18 09:41 | PC.NURSE ---
RR in the 40s, pt maintaining O2 SAT low 90s on 2L, cardizem IVP given, drip initiated, pulse currently 120s to 160s, hospitalist aware.
[2021-10-18] MEDS: Acetaminophen 325 MG TABLET 650 MG PO (11:23)
[2021-10-18] MEDS: Rivaroxaban 15 MG TABLET PO ×2 (11:24→22:36)
--- NOTE | 2021-10-18 11:58 | MHC.CM.PN ---
Met with patient in regards to discharge planning. Patient was recently d/c'd from [facility] to [facility] for STR. Patient returned due to positive urine culture with AMS. Copy of HCP verified to be on file. Patient is vaxxed and boosted X1. IMM explained and left at bedside. Patient agreeable to returning to [facility] via BLS when medically stable. Referral made in [facility]. Continue to monitor for d/c needs.
--- NOTE | 2021-10-18 12:18 | P.PNIM_ITS ---
Subjective Subjective Date of Service: 10/18/21 <Jeanette Singer NP - Last Filed: 10/18/21 12:24> 10/19/21 <Andre Burt MD - Last Filed: 10/19/21 06:52> Review of Systems Follow up Fib rvr, encephalopathy No pain Not able to answer questions appropriately <Jeanette Singer NP - Last Filed: 10/18/21 12:24> Physical Exam Vital Signs: Vital Signs: Last Vital Signs Temp 100.1 F 10/18/21 08:00 Pulse 118 H 10/18/21 10:50 Resp 44 H 10/18/21 10:50 BP 149/83 H 10/18/21 10:50 Pulse Ox 93 10/18/21 10:50 BMI result Body Mass Index 32.3 <Jeanette Singer NP - Last Filed: 10/18/21 12:24> Appearing in no acute distress lung sounds are clear to auscultation heart regular rate rhythm, clear S1, S2 positive bowel sounds, abdomen is soft, nontender neuro patient is alert, confused <Jeanette Singer NP - Last Filed: 10/18/21 12:24> Objective Data Active Medications Acetaminophen (Acetaminophen 325 Mg Tablet) 650 mg PO Q4H PRN PRN Reason: Fever Or Pain Last Admin: 10/18/21 11:23 Dose: 650 mg Documented by: NOLAN Albuterol Sulfate (Albuterol Sulfate 90 Mcg 8 Gm Inhaler) 2 puff INHALE Q6H PRN PRN Reason: Shortness Of Breath Or Wheezing Amlodipine Besylate (Amlodipine Besylate 10 Mg Tablet) 10 mg PO DAILY [facility]; Protocol Last Admin: 10/18/21 09:10 Dose: 10 mg Documented by: NOLAN Atorvastatin Calcium (Atorvastatin Calcium 10 Mg Tablet) 10 mg PO BEDTIME [facility] Last Admin: 10/17/21 21:24 Dose: 10 mg Documented by: MAYLIN Bisacodyl (Bisacodyl 10 Mg Supp.Rect) 10 mg [place] DAILY PRN PRN Reason: Constipation Clonazepam (Clonazepam 1 Mg Tablet) 1 mg PO BID [facility] Last Admin: 10/18/21 09:10 Dose: 1 mg Documented by: NOLAN Dextrose (Dextrose 50 % 25 Gm/50 Ml Syringe) 25 gm IVPUSH Q15M PRN; Protocol PRN Reason: per Hypoglycemia Standing Ord. Escitalopram Oxalate (Escitalopram Oxalate 10 Mg Tablet) 10 mg PO DAILY [facility] Last Admin: 10/18/21 09:10 Dose: 10 mg Documented by: NOLAN Glucose (Glucose Gel 15 Gm Gel..Gram.) 15 gm PO Q15M PRN; Protocol PRN Reason: per Hypoglycemia Standing Ord. Meropenem 1 gm/ Sodium (Chloride) 100 mls @ 200 mls/hr IV Q8H [facility] Last Infusion: 10/18/21 10:12 Dose: 0 mls/hr Documented by: NOLAN Sodium Chloride (Ns) 1,000 mls @ 75 mls/hr IVCONT .[id number] [facility] Last Admin: 10/18/21 02:58 Dose: 75 mls/hr Documented by: MAYLIN Diltiazem HCl 125 mg/ Sodium (Chloride) 125 mls @ 0 mls/hr IVCONT .Q0M [facility]; Protocol Last Titration: 10/18/21 10:27 Dose: 15 mg/hr, 15 mls/hr Documented by: NOLAN Insulin Glargine (Insulin Glargine,Hum.Rec.Anlog 100 Unit/Ml 10 Ml Vial) 30 unit SUBCUT BEDTIME [facility] Last Admin: 10/17/21 21:22 Dose: 30 unit Documented by: MAYLIN Insulin Human Lispro (Insulin Lispro 100 Unit/Ml 3 Ml Vial) 0 unit SUBCUT QIDACHS [facility]; Protocol Last Admin: 10/18/21 07:31 Dose: Not Given Documented by: NOLAN Non-Admin Reason: No Insulin Coverage Metoprolol Succinate (Metoprolol Succinate Er 25 Mg Tab.Er.24h) 25 mg PO DAILY [facility]; Protocol Last Admin: 10/18/21 10:13 Dose: Not Given Documented by: NOLAN Non-Admin Reason: Duplicate Order Metoprolol Tartrate (Metoprolol Tartrate 5 Mg/5 Ml Vial) 5 mg IVPUSH Q6H PRN PRN Reason: HR>125 Multivitamins/Vitamin C (Multivitamin Tablet) 1 tab PO DAILY [facility] Last Admin: 10/18/21 09:10 Dose: Not Given Documented by: NOLAN Non-Admin Reason: Unable to crush Ondansetron HCl (Ondansetron Hcl 4 Mg/2 Ml Vial) 4 mg IVPUSH Q8H PRN PRN Reason: Nausea and Vomiting Pharmacy Consult (Consult Rx Perform Med Rec) 1 each MISCELLANE ONCE PRN PRN Reason: Consult order Pregabalin (Pregabalin 100 Mg Capsule) 100 mg PO TID [facility] Last Admin: 10/18/21 09:10 Dose: 100 mg Documented by: NOLAN Rivaroxaban (Rivaroxaban 15 Mg Tablet) 15 mg PO BID [facility] Stop: 11/03/21 20:59 Last Admin: 10/18/21 11:24 Dose: 15 mg Documented by: NOLAN Rivaroxaban (Rivaroxaban 20 Mg Tablet) 20 mg PO DAILY@1700 [facility] Senna (Sennosides 8.6 Mg Tablet) 17.2 mg PO DAILY PRN PRN Reason: Constipation Sodium Chloride (0.9 % Sodium Chloride Flush 3 Ml Syringe) 3 ml IVFLUSH QSHIFT [facility] Last Admin: 10/18/21 08:14 Dose: Not Given Documented by: NOLAN Non-Admin Reason: IV Running Trazodone HCl (Trazodone Hcl 50 Mg Tablet) 50 mg PO BEDTIME [facility] Last Admin: 10/17/21 21:24 Dose: 50 mg Documented by: MAYLIN <Jeaentte Singer NP - Last Filed: 10/18/21 12:24> Labs CBC & Chem 7: : 10/18/21 06:19 10/18/21 06:19 <Jeanette Singer NP - Last Filed: 10/18/21 12:24> Labs: Laboratory Results - last 24 hr 10/17/21 10/17/21 10/17/21 13:02 13:02 15:26 MCV MCH MCHC RDW Plt Count MPV Immature Gran % (Auto) Neut % (Auto) Lymph % (Auto) [place] % (Auto) Eos % (Auto) Baso % (Auto) Lymph # (Auto) [place] # (Auto) Eos # (Auto) Baso # (Auto) Abs Immat Gran (auto) Absolute Neuts (auto) Absolute Nucleated RBC Nucleated RBC % (auto) Anion Gap Estim Creat Clear Calc Estimated GFR POC Glucose Random Glucose Lactic Acid F/U @ 2Hr 2.5 H* Lactic Acid F/U @ 4Hr 1.8 Calcium Troponin I High Sens 250.0 H* Urine Color Urine Appearance Urine pH Ur Specific [place] Urine Protein Urine Glucose (UA) Urine Ketones Urine Blood Urine Nitrite Ur Leukocyte Esterase Urine RBC Urine WBC Ur Squamous Epith Cells Amorphous Sediment Urine Bacteria Urine Mucus 10/17/21 10/17/21 10/17/21 17:08 17:50 21:12 MCV MCH MCHC RDW Plt Count MPV Immature Gran % (Auto) Neut % (Auto) Lymph % (Auto) [place] % (Auto) Eos % (Auto) Baso % (Auto) Lymph # (Auto) [place] # (Auto) Eos # (Auto) Baso # (Auto) Abs Immat Gran (auto) Absolute Neuts (auto) Absolute Nucleated RBC Nucleated RBC % (auto) Anion Gap Estim Creat Clear Calc Estimated GFR POC Glucose 124 H 233 H Random Glucose Lactic Acid F/U @ 2Hr Lactic Acid F/U @ 4Hr Calcium Troponin I High Sens Urine Color DK YELLOW Urine Appearance CLEAR Urine pH 5.0 Ur Specific [place] >= 1.030 H Urine Protein 1+ H Urine Glucose (UA) NEG Urine Ketones 5 Urine Blood NEG Urine Nitrite NEG Ur Leukocyte Esterase NEG Urine RBC 0-2 Urine WBC 1-4 Ur Squamous Epith Cells 1+ Amorphous Sediment 1+ Urine Bacteria TRACE Urine Mucus TRACE 10/18/21 10/18/21 10/18/21 06:19 06:19 07:03 MCV 98.5 H MCH 30.5 MCHC 30.9 L RDW 14.5 Plt Count 239 MPV 9.7 Immature Gran % (Auto) 0.5 H Neut % (Auto) 89.1 H Lymph % (Auto) 5.8 L [place] % (Auto) 4.1 Eos % (Auto) 0.3 Baso % (Auto) 0.2 Lymph # (Auto) 0.7 L [place] # (Auto) 0.5 Eos # (Auto) 0.0 Baso # (Auto) 0.0 Abs Immat Gran (auto) 0.06 H Absolute Neuts (auto) 10.7 H Absolute Nucleated RBC 0.000 Nucleated RBC % (auto) 0.0 Anion Gap 11 L Estim Creat Clear Calc 83.3 Estimated GFR > 60 POC Glucose 145 H Random Glucose 178 H Lactic Acid F/U @ 2Hr Lactic Acid F/U @ 4Hr Calcium 8.0 L D Troponin I High Sens Urine Color Urine Appearance Urine pH Ur Specific [place] Urine Protein Urine Glucose (UA) Urine Ketones Urine Blood Urine Nitrite Ur Leukocyte Esterase Urine RBC Urine WBC Ur Squamous Epith Cells Amorphous Sediment Urine Bacteria Urine Mucus <Jeanette Singer NP - Last Filed: 10/18/21 12:24> Assessment and Plan (1) DVT, bilateral lower limbs: Status: Acute <Jeanette Singer NP - Last Filed: 10/18/21 12:24> (2) Acute metabolic encephalopathy: Status: Resolved <Jeanette Singer NP - Last Filed: 10/18/21 12:24> Plan 76 year old women admitted with severe sepsis secondary to ESBL UTI AFIB RVR Cardizem drip initiated on metoprolol 25mg daily telemetry Xarelto Severe sepsis secondary to ESBL UTI Fever, Leukocytosis? tachypnea, lactic acidosis Follow final cx ID following rec 10 days ertapenem Elevated troponin Similar to previous but much lower Will consult cardiology so they are aware DVT, noted on previous admission on xarelto HTN continue metoprolol, amlodipine History of a diastolic CHF no exacerbation not on lasix History of depression Continue home escitalopram History of anxiety continue klonopin History of diabetes sliding scale, ada diet History of Hyperlipidemia Statin DVT prophylaxis with Renata Attending Dr. Burt Full code Patient requires continued hospitalization for treatment ESBL UTI necessitating IV meropenem, atrial fibrillation with rapid ventricular response necessitating IV Cardizem drip <Jeanette Singer NP - Last Filed: 10/18/21 12:24> Quality Stroke Does the patient have a stroke diagnosis?: No <Jeanette Singer NP - Last Filed: 10/18/21 12:24> VTE Prior VTE?: No <Jeanette Singer NP - Last Filed: 10/18/21 12:24> VTE Risk Level:: Medical - moderate - high <Jeanette Singer NP - Last Filed: 10/18/21 12:24> VTE Device Contraindication: Treatment Not Indicated <Jeanette Singer NP - Last Filed: 10/18/21 12:24> VTE Drug Contraindication: N/A - Med Ordered <Jeanette Singer NP - Last Filed: 10/18/21 12:24>
[2021-10-18 12:33] LABS: Glucose, Whole Blood 168 mg/dL (60-115)
--- NOTE | 2021-10-18 13:27 | PC.NURSE ---
Pt not awaking upon attempting to rouse patient. ED provider performed sternal rub; pt now awake, eating lunch. Hospitalist notified.
[2021-10-18] MEDS: Insulin Lispro 100 UNIT/ML 3 ML VIAL SUBCUT (13:30)
[2021-10-18 19:53] LABS: Glucose, Whole Blood 150 mg/dL (60-115)
[2021-10-18 20:30] LABS: Glucose, Whole Blood 144 mg/dL (60-115)
[2021-10-18] MEDS: Atorvastatin Calcium 10 MG TABLET PO (22:36)
[2021-10-18] MEDS: 0.9 % Sodium Chloride Flush 3 ML SYRINGE IVFLUSH (22:36)
[2021-10-19] VITALS (7 sets, daily range): BP systolic 146–162; BP diastolic 61–94; PULSE 62–110; RESP 19–40; TEMP 36.7–37.6; O2SAT 90–97; BMI 33.4
[2021-10-19] MEDS: dilTIAZem HCL 125 MG in 0.9 % Sodium Chloride 100 ML 15 MG IVCONT ×2 (06:22→14:28)
[2021-10-19 07:58] LABS: Glucose, Whole Blood 185 mg/dL (60-115)
[2021-10-19] MEDS: Multivitamin TABLET 1 TAB PO (08:22)
[2021-10-19] MEDS: Insulin Lispro 100 UNIT/ML 3 ML VIAL SUBCUT ×3 (08:22→17:02)
[2021-10-19] MEDS: Metoprolol Succinate ER 25 MG TAB.ER.24H PO (08:22)
[2021-10-19] MEDS: Escitalopram Oxalate 10 MG TABLET PO (08:22)
[2021-10-19] MEDS: amLODIPine Besylate 10 MG TABLET PO (08:22)
[2021-10-19] MEDS: 0.9 % Sodium Chloride Flush 3 ML SYRINGE IVFLUSH (08:22)
[2021-10-19] MEDS: Rivaroxaban 15 MG TABLET PO ×2 (08:22→20:07)
--- NOTE | 2021-10-19 10:19 | P.PNIM_ITS ---
Subjective Subjective Date of Service: 10/19/21 Review of Systems Follow up Fib rvr, encephalopathy No pain Not able to answer questions appropriately Physical Exam Vital Signs: Vital Signs: Last Vital Signs Temp 98.5 F 10/19/21 08:00 Pulse 62 10/19/21 08:00 Resp 20 10/19/21 08:00 BP 148/61 H 10/19/21 08:00 Pulse Ox 94 10/19/21 08:00 BMI result Body Mass Index 33.4 Appearing in no acute distress lung sounds are clear to auscultation heart regular rate rhythm, clear S1, S2 positive bowel sounds, abdomen is soft, nontender neuro patient is alert , confused Objective Data Active Medications Acetaminophen (Acetaminophen 325 Mg Tablet) 650 mg PO Q4H PRN PRN Reason: Fever Or Pain Last Admin: 10/18/21 11:23 Dose: 650 mg Documented by: NOLAN Albuterol Sulfate (Albuterol Sulfate 90 Mcg 8 Gm Inhaler) 2 puff INHALE Q6H PRN PRN Reason: Shortness Of Breath Or Wheezing Amlodipine Besylate (Amlodipine Besylate 10 Mg Tablet) 10 mg PO DAILY [facility]; Protocol Last Admin: 10/19/21 08:22 Dose: 10 mg Documented by: ANTELMO Atorvastatin Calcium (Atorvastatin Calcium 10 Mg Tablet) 10 mg PO BEDTIME [facility] Last Admin: 10/18/21 22:36 Dose: 10 mg Documented by: JOSE G Bisacodyl (Bisacodyl 10 Mg Supp.Rect) 10 mg [place] DAILY PRN PRN Reason: Constipation Clonazepam (Clonazepam 1 Mg Tablet) 1 mg PO BID [facility] Last Admin: 10/18/21 09:10 Dose: 1 mg Documented by: NOLAN Dextrose (Dextrose 50 % 25 Gm/50 Ml Syringe) 25 gm IVPUSH Q15M PRN; Protocol PRN Reason: per Hypoglycemia Standing Ord. Escitalopram Oxalate (Escitalopram Oxalate 10 Mg Tablet) 10 mg PO DAILY [facility] Last Admin: 10/19/21 08:22 Dose: 10 mg Documented by: ANTELMO Glucose (Glucose Gel 15 Gm Gel..Gram.) 15 gm PO Q15M PRN; Protocol PRN Reason: per Hypoglycemia Standing Ord. Meropenem 1 gm/ Sodium (Chloride) 100 mls @ 200 mls/hr IV Q8H [facility] Last Admin: 10/19/21 10:03 Dose: 200 mls/hr Documented by: ANTELMO Sodium Chloride (Ns) 1,000 mls @ 75 mls/hr IVCONT .[id number] [facility] Last Infusion: 10/19/21 09:35 Dose: 75 mls/hr Documented by: ANTELMO Diltiazem HCl 125 mg/ Sodium (Chloride) 125 mls @ 0 mls/hr IVCONT .Q0M [facility]; Protocol Last Titration: 10/19/21 07:43 Dose: 15 mg/hr, 15 mls/hr Documented by: ANTELMO Insulin Glargine (Insulin Glargine,Hum.Rec.Anlog 100 Unit/Ml 10 Ml Vial) 30 unit SUBCUT BEDTIME [facility] Last Admin: 10/18/21 22:35 Dose: Not Given Documented by: JOSE G Non-Admin Reason: held per , POC 144 Insulin Human Lispro (Insulin Lispro 100 Unit/Ml 3 Ml Vial) 0 unit SUBCUT QIDAC [facility]; Protocol Last Admin: 10/19/21 08:22 Dose: 2 unit Documented by: ANTELMO Metoprolol Succinate (Metoprolol Succinate Er 25 Mg Tab.Er.24h) 25 mg PO DAILY [facility]; Protocol Last Admin: 10/19/21 08:22 Dose: 25 mg Documented by: ANTELMO Metoprolol Tartrate (Metoprolol Tartrate 5 Mg/5 Ml Vial) 5 mg IVPUSH Q6H PRN PRN Reason: HR>125 Multivitamins/Vitamin C (Multivitamin Tablet) 1 tab PO DAILY [facility] Last Admin: 10/19/21 08:22 Dose: 1 tab Documented by: ANTELMO Ondansetron HCl (Ondansetron Hcl 4 Mg/2 Ml Vial) 4 mg IVPUSH Q8H PRN PRN Reason: Nausea and Vomiting Pharmacy Consult (Consult Rx Perform Med Rec) 1 each MISCELLANE ONCE PRN PRN Reason: Consult order Pregabalin (Pregabalin 100 Mg Capsule) 100 mg PO TID [facility] Last Admin: 10/18/21 09:10 Dose: 100 mg Documented by: NOLAN Rivaroxaban (Rivaroxaban 15 Mg Tablet) 15 mg PO BID [facility] Stop: 11/03/21 20:59 Last Admin: 10/19/21 08:22 Dose: 15 mg Documented by: ANTELMO Rivaroxaban (Rivaroxaban 20 Mg Tablet) 20 mg PO DAILY@1700 DANELLE Senna (Sennosides 8.6 Mg Tablet) 17.2 mg PO DAILY PRN PRN Reason: Constipation Sodium Chloride (0.9 % Sodium Chloride Flush 3 Ml Syringe) 3 ml IVFLUSH QSHIFT [facility] Last Admin: 10/19/21 08:22 Dose: 3 ml Documented by: ANTELMO Trazodone HCl (Trazodone Hcl 50 Mg Tablet) 50 mg PO BEDTIME [facility] Last Admin: 10/17/21 21:24 Dose: 50 mg Documented by: MAYLIN Labs CBC & Chem 7: 10/18/21 06:19 10/18/21 06:19 Labs: Laboratory Results - last 24 hr 10/18/21 10/18/21 10/18/21 12:29 17:13 19:42 POC Glucose 168 H 150 H 144 H 10/19/21 07:54 POC Glucose 185 H Microbiology Microbiology Results: Microbiology 10/17/21 11:20 Blood Culture - Preliminary Blood - Venous No growth after 24 hours. 10/17/21 10:45 Blood Culture - Preliminary Blood - Venous No growth after 24 hours. Assessment and Plan (1) DVT, bilateral lower limbs: Status: Acute (2) Acute metabolic encephalopathy: Status: Resolved Plan 76 year old women admitted with severe sepsis secondary to ESBL UTI AFIB RVR. Improving still in afib Cardizem drip initiated on metoprolol 25mg daily telemetry Xarelto Severe sepsis secondary to ESBL UTI Fever, Leukocytosis? tachypnea, lactic acidosis Follow final cx ID following rec 10 days ertapenem Elevated troponin Similar to previous but much lower Will consult cardiology so they are aware DVT, noted on previous admission on xarelto HTN continue metoprolol, amlodipine History of a diastolic CHF no exacerbation not on lasix History of depression Continue home escitalopram History of anxiety continue klonopin History of diabetes sliding scale, ada diet History of Hyperlipidemia Statin DVT prophylaxis with Renata Attending Dr. Burt Full code Patient requires continued hospitalization for treatment ESBL UTI necessitating IV meropenem, atrial fibrillation with rapid ventricular response necessitating IV Cardizem drip Quality Stroke Does the patient have a stroke diagnosis?: No VTE Prior VTE?: No VTE Risk Level:: Medical - moderate - high VTE Device Contraindication: Treatment Not Indicated VTE Drug Contraindication: N/A - Med Ordered
[2021-10-19 11:48] LABS: Glucose, Whole Blood 172 mg/dL (60-115)
[2021-10-19] MEDS: Acetaminophen 325 MG TABLET 650 MG PO (12:44)
[2021-10-19 16:30] LABS: Glucose, Whole Blood 171 mg/dL (60-115)
[2021-10-19 19:52] LABS: Glucose, Whole Blood 151 mg/dL (60-115)
[2021-10-19] MEDS: 0.9 % Sodium Chloride 1,000 ML 75 ML IVCONT (20:07)
[2021-10-19] MEDS: Atorvastatin Calcium 10 MG TABLET PO (20:07)
[2021-10-19] MEDS: Insulin Glargine,Hum.rec.anlog 100 UNIT/ML 10 ML VIAL 30 UNIT SUBCUT (20:08)
[2021-10-20] VITALS (11 sets, daily range): BP systolic 133–147; BP diastolic 61–94; PULSE 84–109; RESP 16–30; TEMP 36.4–37.9; O2SAT 93–96
[2021-10-20] MEDS: dilTIAZem HCL 125 MG in 0.9 % Sodium Chloride 100 ML 15 MG IVCONT ×2 (00:59→08:18)
[2021-10-20 07:17] LABS: Glucose, Whole Blood 155 mg/dL (60-115)
[2021-10-20] MEDS: Metoprolol Succinate ER 25 MG TAB.ER.24H PO (08:11)
[2021-10-20] MEDS: Insulin Lispro 100 UNIT/ML 3 ML VIAL SUBCUT ×3 (08:11→22:05)
[2021-10-20] MEDS: amLODIPine Besylate 10 MG TABLET PO (08:11)
[2021-10-20] MEDS: Rivaroxaban 15 MG TABLET PO ×2 (08:11→22:22)
[2021-10-20] MEDS: Multivitamin TABLET 1 TAB PO (08:12)
[2021-10-20] MEDS: Escitalopram Oxalate 10 MG TABLET PO (08:12)
[2021-10-20] MEDS: 0.9 % Sodium Chloride Flush 3 ML SYRINGE IVFLUSH ×3 (08:13→22:22)
[2021-10-20 08:54] LABS: VBG Base Excess 6.2 mmol/L; VBG HCO3 28 mmol/L (22-26); VBG pCO2 35 mmHg; VBG pH 7.52 (7.32-7.43); VBG pO2 87 mmHg
[2021-10-20 08:56] LABS: Venous Blood Gas Refer to POC result
[2021-10-20 09:13] LABS: B Type Natriuretic Peptide 327 pg/mL (<100)
[2021-10-20 09:23] LABS: Alanine Aminotransferase 37 U/L (0-31); Alkaline Phosphatase 83 U/L (39-117); Anion Gap 13 (12-20); Aspartate Amino Transferase 30 U/L (5-31); Bilirubin Direct 0.3 mg/dL (0.0-0.5); Bilirubin Total 0.8 mg/dL (0.0-1.0); Blood Urea Nitrogen 10 mg/dL (9-16); Carbon Dioxide 29 mmol/L (22-29); Chloride 104 mmol/L (96-108); Estimated Glomerular Filt Rate > 60; Glucose Random 177 mg/dL (60-115); Sodium 143 mmol/L (135-145); Total Protein 6.4 g/dL (6.5-8.0)
[2021-10-20 11:02] LABS: Glucose, Whole Blood 279 mg/dL (60-115)
--- NOTE | 2021-10-20 11:10 | P.PNIM_ITS ---
Subjective Subjective Date of Service: 10/20/21 <Jeanette Singer NP - Last Filed: 10/20/21 11:14> 10/21/21 <Rayshawn Cole MD - Last Filed: 10/21/21 08:27> Review of Systems Follow up AFib rvr, encephalopathy No pain Not able to answer questions appropriately <Jeanette Singer NP - Last Filed: 10/20/21 11:14> Physical Exam Vital Signs: Vital Signs: Last Vital Signs Temp 97.5 F 10/20/21 07:40 Pulse 109 H 10/20/21 11:02 Resp 22 H 10/20/21 07:40 BP 147/68 H 10/20/21 11:02 Pulse Ox 93 10/20/21 07:40 BMI result Body Mass Index 33.4 <Jeanette Singer NP - Last Filed: 10/20/21 11:14> Appearing in no acute distress lung sounds are clear to auscultation heart regular rate rhythm, clear S1, S2 positive bowel sounds, abdomen is soft, nontender neuro patient is alert, confused, slow to respond <Jeanette Singer NP - Last Filed: 10/20/21 11:14> Objective Data Active Medications Acetaminophen (Acetaminophen 325 Mg Tablet) 650 mg PO Q4H PRN PRN Reason: Fever Or Pain Last Admin: 10/19/21 12:44 Dose: 650 mg Documented by: ANTELMO Albuterol Sulfate (Albuterol Sulfate 90 Mcg 8 Gm Inhaler) 2 puff INHALE Q6H PRN PRN Reason: Shortness Of Breath Or Wheezing Amlodipine Besylate (Amlodipine Besylate 10 Mg Tablet) 10 mg PO DAILY [facility]; Protocol Last Admin: 10/20/21 08:11 Dose: 10 mg Documented by: KARLA Atorvastatin Calcium (Atorvastatin Calcium 10 Mg Tablet) 10 mg PO BEDTIME [facility] Last Admin: 10/19/21 20:07 Dose: 10 mg Documented by: DONYA Bisacodyl (Bisacodyl 10 Mg Supp.Rect) 10 mg [place] DAILY PRN PRN Reason: Constipation Clonazepam (Clonazepam 1 Mg Tablet) 1 mg PO BID [facility] Last Admin: 10/18/21 09:10 Dose: 1 mg Documented by: NOLAN Dextrose (Dextrose 50 % 25 Gm/50 Ml Syringe) 25 gm IVPUSH Q15M PRN; Protocol PRN Reason: per Hypoglycemia Standing Ord. Escitalopram Oxalate (Escitalopram Oxalate 10 Mg Tablet) 10 mg PO DAILY [facility] Last Admin: 10/20/21 08:12 Dose: 10 mg Documented by: KARLA Glucose (Glucose Gel 15 Gm Gel..Gram.) 15 gm PO Q15M PRN; Protocol PRN Reason: per Hypoglycemia Standing Ord. Meropenem 1 gm/ Sodium (Chloride) 100 mls @ 200 mls/hr IV Q8H [facility] Last Infusion: 10/20/21 11:02 Dose: 0 mls/hr Documented by: KARLA Diltiazem HCl 125 mg/ Sodium (Chloride) 125 mls @ 0 mls/hr IVCONT .Q0M [facility]; Protocol Last Titration: 10/20/21 11:02 Dose: 15 mg/hr, 15 mls/hr Documented by: KARLA Insulin Glargine (Insulin Glargine,Hum.Rec.Anlog 100 Unit/Ml 10 Ml Vial) 30 unit SUBCUT BEDTIME [facility] Last Admin: 10/19/21 20:08 Dose: 30 unit Documented by: DONYA Insulin Human Lispro (Insulin Lispro 100 Unit/Ml 3 Ml Vial) 0 unit SUBCUT QIDACHS [facility]; Protocol Last Admin: 10/20/21 08:11 Dose: 2 unit Documented by: KARLA Metoprolol Succinate (Metoprolol Succinate Er 25 Mg Tab.Er.24h) 25 mg PO DAILY [facility]; Protocol Last Admin: 10/20/21 08:11 Dose: 25 mg Documented by: KARLA Metoprolol Tartrate (Metoprolol Tartrate 5 Mg/5 Ml Vial) 5 mg IVPUSH Q6H PRN PRN Reason: HR>125 Multivitamins/Vitamin C (Multivitamin Tablet) 1 tab PO DAILY [facility] Last Admin: 10/20/21 08:12 Dose: 1 tab Documented by: KARLA Ondansetron HCl (Ondansetron Hcl 4 Mg/2 Ml Vial) 4 mg IVPUSH Q8H PRN PRN Reason: Nausea and Vomiting Pharmacy Consult (Consult Rx Perform Med Rec) 1 each MISCELLANE ONCE PRN PRN Reason: Consult order Pregabalin (Pregabalin 100 Mg Capsule) 100 mg PO TID [facility] Last Admin: 10/18/21 09:10 Dose: 100 mg Documented by: NOLAN Rivaroxaban (Rivaroxaban 15 Mg Tablet) 15 mg PO BID [facility] Stop: 11/03/21 20:59 Last Admin: 10/20/21 08:11 Dose: 15 mg Documented by: KARLA Rivaroxaban (Rivaroxaban 20 Mg Tablet) 20 mg PO DAILY@1700 [facility] Senna (Sennosides 8.6 Mg Tablet) 17.2 mg PO DAILY PRN PRN Reason: Constipation Sodium Chloride (0.9 % Sodium Chloride Flush 3 Ml Syringe) 3 ml IVFLUSH QSHIFT [facility] Last Admin: 10/20/21 08:13 Dose: 3 ml Documented by: KARLA Trazodone HCl (Trazodone Hcl 50 Mg Tablet) 50 mg PO BEDTIME [facility] Last Admin: 10/17/21 21:24 Dose: 50 mg Documented by: ZOËK <Jeanette Singer NP - Last Filed: 10/20/21 11:14> Labs CBC & Chem 7: : 10/18/21 06:19 10/21/21 07:03 <Jeanette Singer NP - Last Filed: 10/20/21 11:14> Labs: Laboratory Results - last 24 hr 10/19/21 10/19/21 10/19/21 11:45 15:36 19:41 VBG pH VBG pCO2 VBG pO2 VBG HCO3 VBG O2 Saturation VBG Base Excess Anion Gap Estim Creat Clear Calc Estimated GFR POC Glucose 172 H 171 H 151 H Random Glucose Calcium Total Bilirubin Direct Bilirubin AST ALT Alkaline Phosphatase B-Natriuretic Peptide Total Protein Albumin 10/20/21 10/20/21 10/20/21 07:13 08:42 08:42 VBG pH VBG pCO2 VBG pO2 VBG HCO3 VBG O2 Saturation VBG Base Excess Anion Gap 13 Estim Creat Clear Calc 95.0 Estimated GFR > 60 POC Glucose 155 H Random Glucose 177 H Calcium 8.0 L Total Bilirubin 0.8 Direct Bilirubin 0.3 AST 30 D ALT 37 H Alkaline Phosphatase 83 B-Natriuretic Peptide 327 H Total Protein 6.4 L Albumin 3.0 L 10/20/21 10/20/21 08:46 10:57 VBG pH 7.52 H VBG pCO2 35 VBG pO2 87 VBG HCO3 28 H VBG O2 Saturation 97.0 VBG Base Excess 6.2 Anion Gap Estim Creat Clear Calc Estimated GFR POC Glucose 279 H Random Glucose Calcium Total Bilirubin Direct Bilirubin AST ALT Alkaline Phosphatase B-Natriuretic Peptide Total Protein Albumin <Jeanette Singer NP - Last Filed: 10/20/21 11:14> Microbiology Microbiology Results: Microbiology 10/17/21 11:20 Blood Culture - Preliminary Blood - Venous No growth after 48 hours. 10/17/21 10:45 Blood Culture - Preliminary Blood - Venous No growth after 48 hours. <Jeanette Singer NP - Last Filed: 10/20/21 11:14> Assessment and Plan (1) DVT, bilateral lower limbs: Status: Acute <Jeanette Singer NP - Last Filed: 10/20/21 11:14> (2) Acute metabolic encephalopathy: Status: Resolved <Jeanette Singer NP - Last Filed: 10/20/21 11:14> Plan 76 year old women admitted with severe sepsis secondary to ESBL UTI AFIB RVR. Improving still in afib Cardizem drip initiated on metoprolol 25mg daily telemetry Xarelto Cardiology consultation Severe sepsis secondary to ESBL UTI. Still with tachypnea Fever, Leukocytosis? tachypnea, lactic acidosis Blood cx neg after 48hrs ID following rec 10 days ertapenem Elevated troponin Similar to previous but much lower consult cardiology DVT, noted on previous admission on xarelto HTN continue metoprolol, amlodipine History of a diastolic CHF no exacerbation not on lasix History of depression Continue home escitalopram History of anxiety continue klonopin History of diabetes sliding scale, ada diet History of Hyperlipidemia Statin DVT prophylaxis with Renata Attending Dr. Cole Full code Patient requires continued hospitalization for treatment ESBL UTI necessitating IV meropenem, atrial fibrillation with rapid ventricular response necessitating IV Cardizem drip <Jeanette Singer NP - Last Filed: 10/20/21 11:14> Quality Stroke Does the patient have a stroke diagnosis?: No <Jeanette Singer NP - Last Filed: 10/20/21 11:14> VTE Prior VTE?: No <Jeanette Singer NP - Last Filed: 10/20/21 11:14> VTE Risk Level:: Medical - moderate - high <Jeanette Singer NP - Last Filed: 10/20/21 11:14> VTE Device Contraindication: Treatment Not Indicated <Jeanette Singer NP - Last Filed: 10/20/21 11:14> VTE Drug Contraindication: N/A - Med Ordered <Jeanette Singer NP - Last Filed: 10/20/21 11:14>
[2021-10-20] MEDS: Furosemide 20 MG/2 ML VIAL IVPUSH (11:15)
--- NOTE | 2021-10-20 14:11 | PM.CNCAR ---
History of Present Illness History of Present Illness Date of Service: 10/20/21 Chief complaint: ESBL UTI, elevated troponin Narrative: 76-year-old female who is presenting for ESBL UTI. She is noted to have elevated high sensitivity troponin levels of 263 and 250. Patient is quite confused right now. She is on antibiotics. She also has AFib and has been on diltiazem. She is anticoagulated with Xarelto. Heart rate control is reasonable right now on the Cardizem drip. [facility] Past Medical History Medical History (Updated 10/20/21 @ 16:23 by Edison Maddox MD) Afib Hypercholesterolemia Lumbar degenerative disc disease Recurrent UTI Type 2 diabetes mellitus with hyperglycemia Family History Family History Father Diabetes Heart disease Mother Heart disease Son Opiate addiction Family history: reviewed and not pertinent Surgical History Surgical History History of lumpectomy of right breast History of tubal ligation Social History Social History Household Members: Unknown / Unable to assess Household Members Other:: Brought to ER by son with whom she lives Housing: Unknown / Unable to assess Unable to assess alcohol history related to: Unknown Alcohol intake: never Patient Tobacco Use Status: Never used Tobacco e-Cigarette/Vaping Use: Never Used Second Hand Smoke Exposure: No Advance Directives Date on File: 01/09/21 service: No Current occupational status: retired Cognitive needs: Yes (Electric Wheel Chair) Hearing needs: Yes (Earring Aids) Vision needs: Yes (Glasses) Meds Allergies Allergy/AdvReac Type Severity Reaction Status Date / Time sulfamethoxazole Allergy Intermediate rash face Verified 10/17/21 10:17 [From Bactrim] trimethoprim [From Bactrim] Allergy Intermediate rash face Verified 10/17/21 10:17 amoxicillin [Augmentin] Allergy Unknown Diarrhea Verified 10/17/21 10:17 clavulanic acid [Augmentin] Allergy Unknown Diarrhea Verified 10/17/21 10:17 Iodinated Contrast Media Allergy Unknown THROAT Verified 10/17/21 10:17 [IV Dye, Iodine Containing CLOSES Contrast ] UP/SWELLIN iodine [IODINE] Allergy Unknown ANAPHYLAXIS Verified 10/17/21 10:17 lisinopril [LISINOPRIL] Allergy Unknown UNKNOWN, Verified 10/17/21 10:17 cough, cough prednisone [PREDNISONE] Allergy Unknown INCREASE Verified 10/17/21 10:17 BLOOD PRESSURE quetiapine [From SEROQUEL] Allergy Unknown SWELLING Verified 10/17/21 10:17 X-ray dye Allergy Unknown Facial Verified 10/17/21 10:17 swelling/ trouble breathing apixaban [From Eliquis] AdvReac Intermediate Diarrhea Verified 10/17/21 10:17 Active Medications: Current Medications Acetaminophen (Acetaminophen 325 Mg Tablet) 650 mg PO Q4H PRN PRN Reason: Fever Or Pain Last Admin: 10/19/21 12:44 Dose: 650 mg Documented by: Albuterol Sulfate (Albuterol Sulfate 90 Mcg 8 Gm Inhaler) 2 puff INHALE Q6H PRN PRN Reason: Shortness Of Breath Or Wheezing Amlodipine Besylate (Amlodipine Besylate 10 Mg Tablet) 10 mg PO DAILY [facility]; Protocol Last Admin: 10/20/21 08:11 Dose: 10 mg Documented by: Atorvastatin Calcium (Atorvastatin Calcium 10 Mg Tablet) 10 mg PO BEDTIME [facility] Last Admin: 10/19/21 20:07 Dose: 10 mg Documented by: Bisacodyl (Bisacodyl 10 Mg Supp.Rect) 10 mg [place] DAILY PRN PRN Reason: Constipation Clonazepam (Clonazepam 1 Mg Tablet) 1 mg PO BID [facility] Last Admin: 10/18/21 09:10 Dose: 1 mg Documented by: Dextrose (Dextrose 50 % 25 Gm/50 Ml Syringe) 25 gm IVPUSH Q15M PRN; Protocol PRN Reason: per Hypoglycemia Standing Ord. Escitalopram Oxalate (Escitalopram Oxalate 10 Mg Tablet) 10 mg PO DAILY [facility] Last Admin: 10/20/21 08:12 Dose: 10 mg Documented by: Glucose (Glucose Gel 15 Gm Gel..Gram.) 15 gm PO Q15M PRN; Protocol PRN Reason: per Hypoglycemia Standing Ord. Meropenem 1 gm/ Sodium (Chloride) 100 mls @ 200 mls/hr IV Q8H [facility] Last Infusion: 10/20/21 11:02 Dose: Infused Documented by: Diltiazem HCl 125 mg/ Sodium (Chloride) 125 mls @ 0 mls/hr IVCONT .Q0M [facility]; Protocol Last Titration: 10/20/21 11:02 Dose: 15 mg/hr, 15 mls/hr Documented by: Insulin Glargine (Insulin Glargine,Hum.Rec.Anlog 100 Unit/Ml 10 Ml Vial) 30 unit SUBCUT BEDTIME [facility] Last Admin: 10/19/21 20:08 Dose: 30 unit Documented by: Insulin Human Lispro (Insulin Lispro 100 Unit/Ml 3 Ml Vial) 0 unit SUBCUT QIDACHS [facility]; Protocol Last Admin: 10/20/21 11:15 Dose: 6 unit Documented by: Metoprolol Succinate (Metoprolol Succinate Er 25 Mg Tab.Er.24h) 25 mg PO DAILY [facility]; Protocol Last Admin: 10/20/21 08:11 Dose: 25 mg Documented by: Metoprolol Tartrate (Metoprolol Tartrate 5 Mg/5 Ml Vial) 5 mg IVPUSH Q6H PRN PRN Reason: HR>125 Multivitamins/Vitamin C (Multivitamin Tablet) 1 tab PO DAILY [facility] Last Admin: 10/20/21 08:12 Dose: 1 tab Documented by: Ondansetron HCl (Ondansetron Hcl 4 Mg/2 Ml Vial) 4 mg IVPUSH Q8H PRN PRN Reason: Nausea and Vomiting Pharmacy Consult (Consult Rx Perform Med Rec) 1 each MISCELLANE ONCE PRN PRN Reason: Consult order Pregabalin (Pregabalin 100 Mg Capsule) 100 mg PO TID [facility] Last Admin: 10/18/21 09:10 Dose: 100 mg Documented by: Rivaroxaban (Rivaroxaban 15 Mg Tablet) 15 mg PO BID [facility] Stop: 11/03/21 20:59 Last Admin: 10/20/21 08:11 Dose: 15 mg Documented by: Rivaroxaban (Rivaroxaban 20 Mg Tablet) 20 mg PO DAILY@1700 [facility] Senna (Sennosides 8.6 Mg Tablet) 17.2 mg PO DAILY PRN PRN Reason: Constipation Sodium Chloride (0.9 % Sodium Chloride Flush 3 Ml Syringe) 3 ml IVFLUSH QSHIFT [facility] Last Admin: 10/20/21 08:13 Dose: 3 ml Documented by: Trazodone HCl (Trazodone Hcl 50 Mg Tablet) 50 mg PO BEDTIME [facility] Last Admin: 10/17/21 21:24 Dose: 50 mg Documented by: Home Medications Medication Instructions Recorded Confirmed Last Taken Type albuterol sulfate 90 mcg/actuation 2 puff INHALATION Q6H PRN 06/18/20 10/17/21 10/17/21 History aerosol inhaler Lactobacil.acidophilus-Bifido.animalis 1 cap PO BID 10/17/21 10/17/21 10/16/21 History 5 billion cell sprinkle capsule (Probiotic) acetaminophen 325 mg tablet 650 mg PO Q4H PRN 10/17/21 10/17/21 10/17/21 History bisacodyl 10 mg rectal suppository 10 mg [place] DAILY PRN 10/17/21 10/17/21 Unknown History loperamide 2 mg tablet 2 mg PO Q6H PRN 10/17/21 10/17/21 10/09/21 History metoprolol succinate 25 mg 25 mg PO DAILY 10/17/21 10/17/21 10/16/21 History tablet,extended release 24 hr multivitamin with minerals 1 tab PO DAILY 10/17/21 10/17/21 10/16/21 History nitrofurantoin 100 mg PO BID 10/17/21 10/17/21 10/16/21 History monohydrate/macrocrystals 100 mg capsule (Macrobid) rivaroxaban 15 mg tablet (Xarelto) 15 mg PO BID 10/17/21 10/17/21 10/17/21 History sennosides 8.6 mg tablet (senna) 17.2 mg PO DAILY PRN 10/17/21 10/17/21 Unknown History trazodone 50 mg tablet 50 mg PO BEDTIME 10/17/21 10/17/21 10/16/21 History Physical Exam Vital Signs: Vital Signs: Last Vital Signs Temp 98.4 F 10/20/21 11:10 Pulse 90 10/20/21 11:10 Resp 22 H 10/20/21 11:10 BP 138/61 10/20/21 11:10 Pulse Ox 93 10/20/21 11:10 BMI result Body Mass Index 33.4 GENERAL APPEARANCE: Confused. tearful. NECK: no carotid bruit, no jugular venous distention. SKIN: no suspicious lesions, warm and dry. HEART: no murmurs, irregular rate and rhythm. LUNGS: clear to auscultation bilaterally. ABDOMEN: soft, nontender. EXTREMITIES: no edema. PERIPHERAL PULSES: equal. NEUROLOGIC: No gross deficits, AAO X 3 Objective Labs and Meds Result diagrams: 10/18/21 06:19 10/20/21 08:42 Lab results: Laboratory Results - last 24 hr 10/19/21 10/19/21 10/20/21 15:36 19:41 07:13 VBG pH VBG pCO2 VBG pO2 VBG HCO3 VBG O2 Saturation VBG Base Excess Sodium Potassium Chloride Carbon Dioxide Anion Gap BUN Creatinine Estim Creat Clear Calc Estimated GFR POC Glucose 171 H 151 H 155 H Random Glucose Calcium Total Bilirubin Direct Bilirubin AST ALT Alkaline Phosphatase B-Natriuretic Peptide Total Protein Albumin 10/20/21 10/20/21 10/20/21 08:42 08:42 08:46 VBG pH 7.52 H VBG pCO2 35 VBG pO2 87 VBG HCO3 28 H VBG O2 Saturation 97.0 VBG Base Excess 6.2 Sodium 143 Potassium 3.0 L Chloride 104 Carbon Dioxide 29 Anion Gap 13 BUN 10 Creatinine 0.57 Estim Creat Clear Calc 95.0 Estimated GFR > 60 POC Glucose Random Glucose 177 H Calcium 8.0 L Total Bilirubin 0.8 Direct Bilirubin 0.3 AST 30 D ALT 37 H Alkaline Phosphatase 83 B-Natriuretic Peptide 327 H Total Protein 6.4 L Albumin 3.0 L 10/20/21 10:57 VBG pH VBG pCO2 VBG pO2 VBG HCO3 VBG O2 Saturation VBG Base Excess Sodium Potassium Chloride Carbon Dioxide Anion Gap BUN Creatinine Estim Creat Clear Calc Estimated GFR POC Glucose 279 H Random Glucose Calcium Total Bilirubin Direct Bilirubin AST ALT Alkaline Phosphatase B-Natriuretic Peptide Total Protein Albumin Imaging Radiologist's impression: Impressions Chest X-Ray 10/20/21 09:43 IMPRESSION: Mild congestion represents interval worsening from the previous study. Assessment and Plan (1) Elevated troponin: Status: Acute (2) Afib: Qualifiers: Atrial fibrillation type: paroxysmal Qualified Code(s): I48.0 - Paroxysmal atrial fibrillation Status: Acute Plan 76-year-old female who has background history of atrial fibrillation and was on Xarelto previously presenting for change in mental status and confusion from ESBL UTI. She is on IV antibiotics. Heart rate control is okay currently on the Cardizem drip. Continue Xarelto as before. Has mental status whose I think she can be changed to oral medications and in that case Cardizem can be changed to oral long-acting form. We will follow along with you and help adjust medications. Thank you for allowing me to participate in the care of your patient. Please feel free to contact me if you have any questions. Procedures Date of Service Date of Service: 10/20/21
[2021-10-20 16:12] LABS: Glucose, Whole Blood 145 mg/dL (60-115)
[2021-10-20] MEDS: dilTIAZem HCL 125 MG in 0.9 % Sodium Chloride 100 ML 10 MG IVCONT (17:08)
[2021-10-20 20:44] LABS: Glucose, Whole Blood 167 mg/dL (60-115)
[2021-10-20] MEDS: Insulin Glargine,Hum.rec.anlog 100 UNIT/ML 10 ML VIAL 30 UNIT SUBCUT (22:05)
[2021-10-20] MEDS: Atorvastatin Calcium 10 MG TABLET PO (22:22)
[2021-10-21] VITALS (7 sets, daily range): BP systolic 127–155; BP diastolic 61–73; PULSE 70–122; RESP 16–32; TEMP 35.8–37.1; O2SAT 94–97
[2021-10-21] MEDS: dilTIAZem HCL 125 MG in 0.9 % Sodium Chloride 100 ML 10 MG IVCONT (05:58)
[2021-10-21 07:50] LABS: Glucose, Whole Blood 146 mg/dL (60-115)
[2021-10-21 08:08] LABS: Anion Gap 15 (12-20); Blood Urea Nitrogen 10 mg/dL (9-16); Calcium 8.4 mg/dL (8.4-10.2); Carbon Dioxide 32 mmol/L (22-29); Chloride 99 mmol/L (96-108); Creatinine Clr Calc Pharmacy 93.4; Estimated Glomerular Filt Rate > 60; Glucose Random 143 mg/dL (60-115); Potassium 2.8 mmol/L (3.3-5.1); Sodium 143 mmol/L (135-145)
[2021-10-21] MEDS: Potassium Chloride/H20 10 MEQ/100 ML PIGGYBACK 100 MEQ IV ×4 (09:19→13:33)
[2021-10-21 09:28] LABS: Magnesium 1.6 mg/dL (1.6-2.6)
[2021-10-21] MEDS: amLODIPine Besylate 10 MG TABLET PO (09:28)
[2021-10-21] MEDS: Rivaroxaban 15 MG TABLET PO ×2 (09:28→21:01)
[2021-10-21] MEDS: Potassium Chloride Packet 20 MEQ PACKET 40 MEQ PO ×2 (09:28→21:01)
[2021-10-21] MEDS: Multivitamin TABLET 1 TAB PO (09:28)
[2021-10-21] MEDS: Escitalopram Oxalate 10 MG TABLET PO (09:28)
[2021-10-21] MEDS: 0.9 % Sodium Chloride Flush 3 ML SYRINGE IVFLUSH ×3 (09:28→21:18)
[2021-10-21] MEDS: Metoprolol Succinate ER 25 MG TAB.ER.24H PO (09:28)
--- NOTE | 2021-10-21 09:38 | MHC.CM.PN ---
Female 76 DX UTI DP return to [facility] via BLS. Patient is not ready for discharge today. She continues on a Cardizem Drip. She will continue to receive IV ABX: Meropenum TID @ discharge. Today is day4 of 10.
[2021-10-21 11:39] LABS: Glucose, Whole Blood 163 mg/dL (60-115)
[2021-10-21] MEDS: Insulin Lispro 100 UNIT/ML 3 ML VIAL SUBCUT ×2 (12:21→21:16)
--- NOTE | 2021-10-21 13:22 | P.PNIM_ITS ---
Subjective Subjective Date of Service: 10/21/21 Interval History: Remains afebrile overnight. No acute issues Review of Systems Denies chest pain Denies shortness of breath Denies nausea vomiting diarrhea Physical Exam Vital Signs: Vital Signs: Last Vital Signs Temp 96.5 F L 10/21/21 11:13 Pulse 98 10/21/21 11:13 Resp 32 H 10/21/21 11:13 BP 137/64 10/21/21 11:13 Pulse Ox 97 10/21/21 11:13 BMI result Body Mass Index 33.4 Const: Other: No acute distress Resp: Other: Clear to auscultation bilaterally no rales rhonchi or wheezes Cardio: Other: No S4; positive S1-S2; no S3 murmurs rubs or gallops GI: Other: Soft nontender nondistended normoactive bowel sounds Extrem: Other: No edema bilaterally Objective Data Active Medications Acetaminophen (Acetaminophen 325 Mg Tablet) 650 mg PO Q4H PRN PRN Reason: Fever Or Pain Last Admin: 10/19/21 12:44 Dose: 650 mg Documented by: ANTELMO Albuterol Sulfate (Albuterol Sulfate 90 Mcg 8 Gm Inhaler) 2 puff INHALE Q6H PRN PRN Reason: Shortness Of Breath Or Wheezing Amlodipine Besylate (Amlodipine Besylate 10 Mg Tablet) 10 mg PO DAILY [facility]; Protocol Last Admin: 10/21/21 09:28 Dose: 10 mg Documented by: KARLA Atorvastatin Calcium (Atorvastatin Calcium 10 Mg Tablet) 10 mg PO BEDTIME [facility] Last Admin: 10/20/21 22:22 Dose: 10 mg Documented by: DONYA Bisacodyl (Bisacodyl 10 Mg Supp.Rect) 10 mg [place] DAILY PRN PRN Reason: Constipation Clonazepam (Clonazepam 1 Mg Tablet) 1 mg PO BID [facility] Last Admin: 10/18/21 09:10 Dose: 1 mg Documented by: NOLAN Dextrose (Dextrose 50 % 25 Gm/50 Ml Syringe) 25 gm IVPUSH Q15M PRN; Protocol PRN Reason: per Hypoglycemia Standing Ord. Escitalopram Oxalate (Escitalopram Oxalate 10 Mg Tablet) 10 mg PO DAILY [facility] Last Admin: 10/21/21 09:28 Dose: 10 mg Documented by: KARLA Glucose (Glucose Gel 15 Gm Gel..Gram.) 15 gm PO Q15M PRN; Protocol PRN Reason: per Hypoglycemia Standing Ord. Meropenem 1 gm/ Sodium (Chloride) 100 mls @ 200 mls/hr IV Q8H [facility] Last Infusion: 10/21/21 10:19 Dose: 0 mls/hr Documented by: KARLA Diltiazem HCl 125 mg/ Sodium (Chloride) 125 mls @ 0 mls/hr IVCONT .Q0M [facility]; Protocol Last Admin: 10/21/21 05:58 Dose: 10 mg/hr, 10 mls/hr Documented by: DONYA Insulin Glargine (Insulin Glargine,Hum.Rec.Anlog 100 Unit/Ml 10 Ml Vial) 30 unit SUBCUT BEDTIME [facility] Last Admin: 10/20/21 22:05 Dose: 30 unit Documented by: DONYA Insulin Human Lispro (Insulin Lispro 100 Unit/Ml 3 Ml Vial) 0 unit SUBCUT QIDACHS [facility]; Protocol Last Admin: 10/21/21 12:21 Dose: 2 unit Documented by: KARLA Metoprolol Succinate (Metoprolol Succinate Er 25 Mg Tab.Er.24h) 25 mg PO DAILY [facility]; Protocol Last Admin: 10/21/21 09:28 Dose: 25 mg Documented by: KARLA Metoprolol Tartrate (Metoprolol Tartrate 5 Mg/5 Ml Vial) 5 mg IVPUSH Q6H PRN PRN Reason: HR>125 Multivitamins/Vitamin C (Multivitamin Tablet) 1 tab PO DAILY [facility] Last Admin: 10/21/21 09:28 Dose: 1 tab Documented by: KARLA Ondansetron HCl (Ondansetron Hcl 4 Mg/2 Ml Vial) 4 mg IVPUSH Q8H PRN PRN Reason: Nausea and Vomiting Pharmacy Consult (Consult Rx Perform Med Rec) 1 each MISCELLANE ONCE PRN PRN Reason: Consult order Potassium Chloride (Potassium Chloride Packet 20 Meq Packet) 40 meq PO BID [facility] Last Admin: 10/21/21 09:28 Dose: 40 meq Documented by: KARLA Pregabalin (Pregabalin 100 Mg Capsule) 100 mg PO TID [facility] Last Admin: 10/18/21 09:10 Dose: 100 mg Documented by: NOLAN Rivaroxaban (Rivaroxaban 15 Mg Tablet) 15 mg PO BID [facility] Stop: 11/03/21 20:59 Last Admin: 10/21/21 09:28 Dose: 15 mg Documented by: KARLA Rivaroxaban (Rivaroxaban 20 Mg Tablet) 20 mg PO DAILY@1700 DANELLE Senna (Sennosides 8.6 Mg Tablet) 17.2 mg PO DAILY PRN PRN Reason: Constipation Sodium Chloride (0.9 % Sodium Chloride Flush 3 Ml Syringe) 3 ml IVFLUSH QSHIFT [facility] Last Admin: 10/21/21 09:28 Dose: 3 ml Documented by: KARLA Trazodone HCl (Trazodone Hcl 50 Mg Tablet) 50 mg PO BEDTIME [facility] Last Admin: 10/17/21 21:24 Dose: 50 mg Documented by: MAYLIN Labs CBC & Chem 7: 10/18/21 06:19 10/21/21 07:03 Labs: Laboratory Results - last 24 hr 10/20/21 10/20/21 10/21/21 16:09 20:33 07:03 Anion Gap 15 Estim Creat Clear Calc 93.4 Estimated GFR > 60 POC Glucose 145 H 167 H Random Glucose 143 H Calcium 8.4 Magnesium 1.6 10/21/21 10/21/21 07:23 11:15 Anion Gap Estim Creat Clear Calc Estimated GFR POC Glucose 146 H 163 H Random Glucose Calcium Magnesium Assessment and Plan (1) UTI due to extended-spectrum beta lactamase (ESBL) producing Escherichia coli: Status: Acute (2) Afib: Status: Acute (3) Type 2 diabetes mellitus with hyperglycemia: Status: Acute Plan 76 year old women admitted with severe sepsis secondary to ESBL UTI 1. UTI -Meropenem(09/27) -WBC trending down -ESBL negative...will discuss with ID 2. Chronic AFib -rate control acceptable on oral therapies -Xarelto as ordered 3.HTN -acceptable control on current therapies -continue metoprolol, amlodipine -adjust as clinically indicated 4.DMII -acceptable control on current therapies -continue sliding scale adjust as clinically indicated Full code Xarelto Patient requires ongoing hospitalization for treatment of UTI with IV antibiotics Quality Stroke Does the patient have a stroke diagnosis?: No VTE Prior VTE?: No VTE Risk Level:: Medical - moderate - high VTE Device Contraindication: Treatment Not Indicated VTE Drug Contraindication: N/A - Med Ordered
[2021-10-21 15:46] LABS: Glucose, Whole Blood 143 mg/dL (60-115)
[2021-10-21] MEDS: dilTIAZem HCL 125 MG in 0.9 % Sodium Chloride 100 ML 15 MG IVCONT (17:47)
[2021-10-21 20:59] LABS: Glucose, Whole Blood 218 mg/dL (60-115)
[2021-10-21] MEDS: Atorvastatin Calcium 10 MG TABLET PO (21:01)
[2021-10-21] MEDS: Insulin Glargine,Hum.rec.anlog 100 UNIT/ML 10 ML VIAL 30 UNIT SUBCUT (21:16)
[2021-10-22 03:18] VITALS: BP 140/64; PULSE 70; RESP 18; TEMP 36.4; O2SAT 95
--- NOTE | 2021-10-22 06:19 | PC.NURSE ---
No order to keep dietz placed other than fluid management. Auto Locator instructed to remove. Dietz removed at 0615, pt will have until 12:15 to void. Purewick in place.
[2021-10-22 07:40] VITALS: BP 148/58; PULSE 105; RESP 32; TEMP 36.4; O2SAT 95
[2021-10-22 07:48] LABS: Glucose, Whole Blood 115 mg/dL (60-115)
[2021-10-22] MEDS: dilTIAZem HCL 125 MG in 0.9 % Sodium Chloride 100 ML 15 MG IVCONT (08:50)
[2021-10-22] MEDS: Potassium Chloride Packet 20 MEQ PACKET 40 MEQ PO ×2 (08:51→21:49)
[2021-10-22] MEDS: amLODIPine Besylate 10 MG TABLET PO (08:51)
[2021-10-22] MEDS: Metoprolol Succinate ER 25 MG TAB.ER.24H PO (08:51)
[2021-10-22] MEDS: 0.9 % Sodium Chloride Flush 3 ML SYRINGE IVFLUSH ×3 (08:51→21:50)
[2021-10-22] MEDS: Multivitamin TABLET 1 TAB PO (08:51)
[2021-10-22] MEDS: Rivaroxaban 15 MG TABLET PO ×2 (08:51→21:49)
[2021-10-22] MEDS: Escitalopram Oxalate 10 MG TABLET PO (08:51)
--- NOTE | 2021-10-22 08:59 | MHC.CLN ---
STAGE 2 COCCYX NOTED SINCE 10/20 RECOMMEND ADDING ENSURE BID TO INCREASE KCALS AND PROMOTE WOUND HEALING AWAITING WOUND NURSE ASSESSMENT MONITOR PO INTAKE FULL ASSESSMENT TO FOLLOW
[2021-10-22 11:20] VITALS: BP 110/64; PULSE 101; RESP 32; TEMP 35.9; O2SAT 98
[2021-10-22 11:49] LABS: Glucose, Whole Blood 176 mg/dL (60-115)
[2021-10-22] MEDS: Insulin Lispro 100 UNIT/ML 3 ML VIAL SUBCUT ×2 (12:50→21:49)
--- NOTE | 2021-10-22 13:31 | HO.PM.IMPN ---
Subjective Subjective Date of Service: 10/22/21 Interval History: Remains afebrile overnight. No acute issues Review of Systems Denies chest pain Denies shortness of breath Denies nausea vomiting diarrhea Physical Exam Vital Signs: Vital Signs: Last Vital Signs Temp 96.6 F L 10/22/21 11:20 Pulse 101 H 10/22/21 11:20 Resp 32 H 10/22/21 11:20 BP 110/64 10/22/21 11:20 Pulse Ox 98 10/22/21 11:20 BMI result Body Mass Index 33.4 Const: Other: No acute distress Resp: Other: Clear to auscultation bilaterally no rales rhonchi or wheezes Cardio: Other: No S4; positive S1-S2; no S3 murmurs rubs or gallops GI: Other: Soft nontender nondistended normoactive bowel sounds Extrem: Other: No edema bilaterally Objective Data Active Medications Acetaminophen (Acetaminophen 325 Mg Tablet) 650 mg PO Q4H PRN PRN Reason: Fever Or Pain Last Admin: 10/19/21 12:44 Dose: 650 mg Documented by: ANTELMO Albuterol Sulfate (Albuterol Sulfate 90 Mcg 8 Gm Inhaler) 2 puff INHALE Q6H PRN PRN Reason: Shortness Of Breath Or Wheezing Amlodipine Besylate (Amlodipine Besylate 10 Mg Tablet) 10 mg PO DAILY [facility]; Protocol Last Admin: 10/22/21 08:51 Dose: 10 mg Documented by: JACQUES Atorvastatin Calcium (Atorvastatin Calcium 10 Mg Tablet) 10 mg PO BEDTIME [facility] Last Admin: 10/21/21 21:01 Dose: 10 mg Documented by: JOSE RAMON Bisacodyl (Bisacodyl 10 Mg Supp.Rect) 10 mg MA DAILY PRN PRN Reason: Constipation Clonazepam (Clonazepam 1 Mg Tablet) 1 mg PO BID [facility] Last Admin: 10/18/21 09:10 Dose: 1 mg Documented by: NOLAN Dextrose (Dextrose 50 % 25 Gm/50 Ml Syringe) 25 gm IVPUSH Q15M PRN; Protocol PRN Reason: per Hypoglycemia Standing Ord. Escitalopram Oxalate (Escitalopram Oxalate 10 Mg Tablet) 10 mg PO DAILY [facility] Last Admin: 10/22/21 08:51 Dose: 10 mg Documented by: JACQUES Glucose (Glucose Gel 15 Gm Gel..Gram.) 15 gm PO Q15M PRN; Protocol PRN Reason: per Hypoglycemia Standing Ord. Meropenem 1 gm/ Sodium (Chloride) 100 mls @ 200 mls/hr IV Q8H [facility] Last Infusion: 10/22/21 12:39 Dose: 0 mls/hr Documented by: JACQUES Diltiazem HCl 125 mg/ Sodium (Chloride) 125 mls @ 0 mls/hr IVCONT .Q0M [facility]; Protocol Last Titration: 10/22/21 12:39 Dose: 10 mg/hr, 10 mls/hr Documented by: JACQUES Insulin Glargine (Insulin Glargine,Hum.Rec.Anlog 100 Unit/Ml 10 Ml Vial) 30 unit SUBCUT BEDTIME [facility] Last Admin: 10/21/21 21:16 Dose: 30 unit Documented by: JOSE RAMON Insulin Human Lispro (Insulin Lispro 100 Unit/Ml 3 Ml Vial) 0 unit SUBCUT QIDACHS [facility]; Protocol Last Admin: 10/22/21 12:50 Dose: 2 unit Documented by: JACQUES Metoprolol Succinate (Metoprolol Succinate Er 25 Mg Tab.Er.24h) 25 mg PO DAILY [facility]; Protocol Last Admin: 10/22/21 08:51 Dose: 25 mg Documented by: JACQUES Metoprolol Tartrate (Metoprolol Tartrate 5 Mg/5 Ml Vial) 5 mg IVPUSH Q6H PRN PRN Reason: HR>125 Multivitamins/Vitamin C (Multivitamin Tablet) 1 tab PO DAILY [facility] Last Admin: 10/22/21 08:51 Dose: 1 tab Documented by: JACQUES Ondansetron HCl (Ondansetron Hcl 4 Mg/2 Ml Vial) 4 mg IVPUSH Q8H PRN PRN Reason: Nausea and Vomiting Pharmacy Consult (Consult Rx Perform Med Rec) 1 each MISCELLANE ONCE PRN PRN Reason: Consult order Potassium Chloride (Potassium Chloride Packet 20 Meq Packet) 40 meq PO BID [facility] Last Admin: 10/22/21 08:51 Dose: 40 meq Documented by: JACQUES Pregabalin (Pregabalin 100 Mg Capsule) 100 mg PO TID [facility] Last Admin: 10/18/21 09:10 Dose: 100 mg Documented by: NOLAN Rivaroxaban (Rivaroxaban 15 Mg Tablet) 15 mg PO BID [facility] Stop: 11/03/21 20:59 Last Admin: 10/22/21 08:51 Dose: 15 mg Documented by: DOBROB Rivaroxaban (Rivaroxaban 20 Mg Tablet) 20 mg PO DAILY@1700 [facility] Senna (Sennosides 8.6 Mg Tablet) 17.2 mg PO DAILY PRN PRN Reason: Constipation Sodium Chloride (0.9 % Sodium Chloride Flush 3 Ml Syringe) 3 ml IVFLUSH QSHIFT [facility] Last Admin: 10/22/21 08:51 Dose: 3 ml Documented by: BROB Trazodone HCl (Trazodone Hcl 50 Mg Tablet) 50 mg PO BEDTIME [facility] Last Admin: 10/17/21 21:24 Dose: 50 mg Documented by: PHILLIP-RYANK Labs CBC & Chem 7: 10/18/21 06:19 10/21/21 07:03 Labs: Laboratory Results - last 24 hr 10/21/21 10/21/21 10/22/21 15:36 20:34 07:41 POC Glucose 143 H 218 H 115 10/22/21 11:22 POC Glucose 176 H Microbiology Microbiology Results: Microbiology 10/17/21 11:20 Blood Culture - Final Blood - Venous No growth after 5 days. 10/17/21 10:45 Blood Culture - Final Blood - Venous No growth after 5 days. Assessment and Plan (1) Recurrent UTI: Status: Acute (2) Afib: Status: Acute (3) Type 2 diabetes mellitus with hyperglycemia: Status: Acute Plan 76 year old women admitted with severe sepsis secondary to ESBL UTI 1. UTI -Meropenem(10/27) -WBC trending down -ESBL negative...will discuss with ID;?ceftin po 2. Chronic AFib -will give p.o. Cardizem and DC drip. -observed times 24 hours rate stable likely DC in a.m. -Xarelto as ordered 3.HTN -acceptable control on current therapies -continue metoprolol, amlodipine -adjust as clinically indicated 4.DMII -acceptable control on current therapies -continue sliding scale adjust as clinically indicated Full code Xarelto Patient requires ongoing hospitalization for treatment of UTI with IV antibiotics Quality Stroke Does the patient have a stroke diagnosis?: No VTE Prior VTE?: No VTE Risk Level:: Medical - moderate - high VTE Device Contraindication: Treatment Not Indicated VTE Drug Contraindication: N/A - Med Ordered
[2021-10-22] MEDS: dilTIAZem HCL CD 120 MG CAP.ER.DEG PO (14:22)
--- NOTE | 2021-10-22 14:51 | MHC.CM.PN ---
Per MD rounds Discharge was planned for today. DP [facility] via BLS tomorrow. IV Cardizem changed to PO. MD will monitor patients response to route change.
--- NOTE | 2021-10-22 15:00 | PM.PNCARD ---
Subjective Subjective Date of Service: 10/22/21 Principal diagnosis: Atrial fibrillation Interval history: Patient does not report much cardiac symptoms. Remains in atrial fibrillation with borderline elevated heart rate. Yesterday had significant hypokalemia. No repeat K level today. She denies any palpitations, shortness of breath. By medication list she is both on amlodipine and Cardizem. Her blood pressure is controlled. Review of Systems Review of Systems Yes Unobtainable due to mental status Physical Exam Vital Signs: Last Vital Signs Temp 96.6 F L 10/22/21 11:20 Pulse 101 H 10/22/21 11:20 Resp 32 H 10/22/21 11:20 BP 110/64 10/22/21 11:20 Pulse Ox 98 10/22/21 11:20 BMI result Body Mass Index 33.4 Const General: cooperative, comfortable, no acute distress, alert and awake Nutritional Appearance: overweight Neck Neck: Yes trachea midline, Yes supple and Yes no JVD Resp Effort & Inspection: normal respiratory effort Auscultation: no crackles, no wheezes and diminished lung sounds Cardio Jugular venous distension: no JVD Rate: tachycardic Rhythm: abnormal rhythm irregularly irregular Heart sounds: S1 normal heart sound present, S2 normal heart sound present, no click, no gallops and no murmurs GI Auscultation: normal bowel sounds Neuro General: no focal motor deficits Extrem General: Yes no clubbing, cyanosis or edema Objective Labs and Meds Result diagrams: 10/18/21 06:19 10/21/21 07:03 Lab results: Laboratory Results - last 24 hr 10/21/21 10/21/21 10/22/21 15:36 20:34 07:41 POC Glucose 143 H 218 H 115 10/22/21 11:22 POC Glucose 176 H Progress Note: A&P Assessment and plan (1) Afib: Status: Acute Assessment and Plan: Chronic atrial fibrillation with borderline rate control most likely to acute medical issues. However we can further uptitrate her Cardizem to 180 mg b.i.d. and continue low-dose metoprolol therapy. This can be further increased. However she is on 2 calcium channel blockers and amlodipine can be discontinued at this point time. Resume oral anticoagulation with Xarelto. No further cardiac workup is indicated. Continue cardiac monitoring Iker rate is better controlled. Will sign of the case at this point in time Time Spent With Patient Time: Total time spent is greater than 50% in coordination of care (as documented) at patient's floor/unit and/or counseling patient: Progress Note: Quality Stroke Does the patient have a stroke diagnosis?: No Procedures Date of Service Date of Service: 10/22/21
[2021-10-22 16:00] VITALS: BP 104/47; PULSE 89; RESP 18; TEMP 36.6; O2SAT 95
[2021-10-22 16:31] LABS: Anion Gap 12 (12-20); Blood Urea Nitrogen 12 mg/dL (9-16); Calcium 8.4 mg/dL (8.4-10.2); Carbon Dioxide 30 mmol/L (22-29); Chloride 100 mmol/L (96-108); Creatinine Clr Calc Pharmacy 87.4; Estimated Glomerular Filt Rate > 60; Glucose Random 166 mg/dL (60-115); Potassium 3.3 mmol/L (3.3-5.1); Sodium 139 mmol/L (135-145)
[2021-10-22 16:48] LABS: Glucose, Whole Blood 141 mg/dL (60-115)
[2021-10-22 20:00] VITALS: BP 90/62; PULSE 89; RESP 27; TEMP 36.2; O2SAT 93
[2021-10-22 21:03] LABS: Glucose, Whole Blood 208 mg/dL (60-115)
[2021-10-22] MEDS: Atorvastatin Calcium 10 MG TABLET PO (21:49)
[2021-10-22] MEDS: Insulin Glargine,Hum.rec.anlog 100 UNIT/ML 10 ML VIAL 30 UNIT SUBCUT (21:50)
[2021-10-22 23:51] VITALS: BP 120/85; PULSE 89; RESP 19; TEMP 36.2; O2SAT 95
[2021-10-23 03:11] VITALS: BP 140/54; PULSE 70; RESP 19; TEMP 36.7; O2SAT 98
[2021-10-23 06:45] LABS: MANUAL DIFF FLAG NO
[2021-10-23 06:47] LABS: Basophils Percent Auto 0.2 % (0-2); Eosinophils Absolute Auto 0.1 X10*3/uL (0.0-0.4); Eosinophils Percent Auto 0.7 % (0-4); Hematocrit 34.8 % (37.0-47.0); Hemoglobin 11.4 g/dl (12.0-16.0); Imm Gran Abs Auto 0.02 X10*3/uL (0.00-0.03); Imm Gran Pct Auto 0.2 % (0.0-0.4); Lymphocytes Absolute Auto 1.7 X10*3/uL (1.2-4.9); Mean Corpuscular HGB Conc 32.8 g/dl (31.0-35.0); Mean Corpuscular Hemoglobin 30.9 pg (27.0-33.0); Mean Corpuscular Volume 94.3 fL (80.0-98.0); Mean Platelet Volume 9.7 fL (9.4-12.3); Monocytes Absolute Auto 0.6 X10*3/uL (0.1-1.2); Monocytes Percent Auto 7.5 % (2-11); Neutrophils Absolute Auto 5.7 x10*3/uL (2.0-8.3); Neutrophils Percent Auto 70.4 % (45-73); Platelet Count 346 X10*3/uL (160-400); Red Blood Count 3.69 X10*6/uL (4.20-5.50); Red Cell Distribution Width 13.6 % (11.0-16.0); White Blood Count 8.1 X10*3/uL (4.8-10.8)
[2021-10-23 07:14] LABS: Alanine Aminotransferase 32 U/L (0-31); Albumin Level 3.1 g/dL (3.5-5.0); Alkaline Phosphatase 77 U/L (39-117); Anion Gap 14 (12-20); Aspartate Amino Transferase 20 U/L (5-31); Bilirubin Total 0.6 mg/dL (0.0-1.0); Blood Urea Nitrogen 10 mg/dL (9-16); Calcium 8.4 mg/dL (8.4-10.2); Carbon Dioxide 29 mmol/L (22-29); Chloride 101 mmol/L (96-108); Creatinine Clr Calc Pharmacy 96.7; Estimated Glomerular Filt Rate > 60; Glucose Fasting 110 mg/dL (60-99); Potassium 3.7 mmol/L (3.3-5.1); Sodium 140 mmol/L (135-145); Total Protein 6.6 g/dL (6.5-8.0)
[2021-10-23 07:21] VITALS: BP 135/78; PULSE 94; RESP 18; TEMP 37.1; O2SAT 98
[2021-10-23 07:55] LABS: Glucose, Whole Blood 97 mg/dL (60-115)
--- NOTE | 2021-10-23 09:19 | MHC.CM.PN ---
Addendum entered by Anabel Perkins 10/23/21 14:33: IMM 10/23/21 Transportation is booked for 4:30pm. All dc info including a negative covid test have been sent to [facility]. Addendum entered by Anabel Perkins 10/23/21 11:41: Per MD rounds Patient is ready to discharge today. She will return to [facility] via BLS. Original Note: Female 76 DX UTI DP return to [facility] via BLS. She continues to require IV ABX. Cardizem changed to PO yesterday.
[2021-10-23] MEDS: Rivaroxaban 15 MG TABLET PO (10:14)
[2021-10-23] MEDS: Escitalopram Oxalate 10 MG TABLET PO (10:14)
[2021-10-23] MEDS: dilTIAZem HCL CD 180 MG CAP.ER.24H PO (10:14)
[2021-10-23] MEDS: amLODIPine Besylate 10 MG TABLET PO (10:14)
[2021-10-23] MEDS: Potassium Chloride Packet 20 MEQ PACKET 40 MEQ PO (10:14)
[2021-10-23] MEDS: Multivitamin TABLET 1 TAB PO (10:14)
[2021-10-23] MEDS: Metoprolol Succinate ER 25 MG TAB.ER.24H PO (10:14)
[2021-10-23] MEDS: 0.9 % Sodium Chloride Flush 3 ML SYRINGE IVFLUSH (10:15)
[2021-10-23 10:46] VITALS: BMI 33.4
--- NOTE | 2021-10-23 10:48 | MHC.CLN ---
RE: CONSULT PT WITH INCREASED NUTRITION RISK R/T PRESSURE INJURY PO INTAKE 50-75% DIET RX: PUREED-APPROPRIATE PT RECEIVING ENSURE BID TO INCREASE KCALS AND PROMOTE WOUND HEALING SUPP PROVIDES 700KCALS, 40G PROTEIN MONITOR PO INTAKE CLOSELY SEE ALSO FULL CLINICAL NUTRITION ASSESSMENT
[2021-10-23 11:35] VITALS: BP 151/81; PULSE 101; RESP 18; TEMP 36.7; O2SAT 98
[2021-10-23 11:44] LABS: Glucose, Whole Blood 158 mg/dL (60-115)
[2021-10-23] MEDS: Insulin Lispro 100 UNIT/ML 3 ML VIAL SUBCUT (12:43)
--- NOTE | 2021-10-23 14:12 | PM.DS ---
DS: Providers Provider Date of Service: 10/23/21 Date of admission: 10/17/21 13:37 Date of discharge: 10/23/21 Primary care physician: Jorje Perrin MD Consults: 10/17/21 13:44 Consult to Infectious Diseases Routine Consulting Provider: Uma San Reason for consultation: ESBL uti Has provider been notified: No 10/20/21 07:55 Consult to Cardiology Routine Consulting Provider: Edison Maddox Reason for consultation: afib Has provider been notified: No DS: Diagnosis Discharge Diagnosis (1) Recurrent UTI: Status: Acute (2) Afib: Status: Acute DS: Summary Hospital Course Hospital Course: 76 year old women presenting from home with altered mental status and was found to have ESBL Ecoli UTI from cx on 10/14/[address] [facility]. She was initially treated with Macrobid at [facility]. She was confused and unable to give accurate information. She was noted to have a fever as high as 101.4, tachypnea, leukocytosis and elevated lactic acid of 3.5. Her troponin was also noted to be elevated at 263.4 with no complaints of chest pain. She was given a dose of ertapenem in the ED and a liter of IV fluids. She will be admitted for further management of ESBL UTI Hospital course Patient admitted and maintained on meropenem for suspected ESBL UTI. Shortly after admission developed AFib with rapid ventricular response requiring Cardizem drip. Rate persistently difficult to control. Continued on antibiotics for UTI. Subsequent culture grew E coli ESBL negative. Patient was ultimately switched to oral Cardizem without issue; discussed with ID we will be sent out on a 10 day course of Ceftin Time Spent with Patient Time attestation: Total time spent providing and/or coordinating discharge services: Discharge coordination time: Greater than 30 minutes Quality: Safe Use of Opioids Does Pt have an Active Cancer Diagnosis on the Problem List?: No Quality: Stroke Does the patient have a stroke diagnosis?: No Physical Exam Vital Signs: Vital Signs: Last Vital Signs Temp 98.1 F 10/23/21 11:35 Pulse 101 H 10/23/21 11:35 Resp 18 10/23/21 11:35 BP 151/81 H 10/23/21 11:35 Pulse Ox 98 10/23/21 11:35 BMI result Body Mass Index 33.4 Const: Other: No acute distress Resp: Other: Clear to auscultation bilaterally no rales rhonchi or wheezes Cardio: Other: No S4; positive S1-S2; no S3 murmurs rubs or gallops GI: Other: Soft nontender nondistended normoactive bowel sounds Extrem: Other: No edema bilaterally DS: Data Data Completed and Pending Labs on day of discharge: Laboratory Results - last 24 hr 10/22/21 10/22/21 10/22/21 15:46 16:30 20:59 WBC RBC Hgb Hct MCV MCH MCHC RDW Plt Count MPV Immature Gran % (Auto) Neut % (Auto) Lymph % (Auto) [place] % (Auto) Eos % (Auto) Baso % (Auto) Lymph # (Auto) [place] # (Auto) Eos # (Auto) Baso # (Auto) Abs Immat Gran (auto) Absolute Neuts (auto) Absolute Nucleated RBC Nucleated RBC % (auto) Sodium 139 Potassium 3.3 Chloride 100 Carbon Dioxide 30 H Anion Gap 12 BUN 12 Creatinine 0.62 Estim Creat Clear Calc 87.4 Estimated GFR > 60 POC Glucose 141 H 208 H Random Glucose 166 H Fasting Glucose Calcium 8.4 Total Bilirubin AST ALT Alkaline Phosphatase Total Protein Albumin 10/23/21 10/23/21 10/23/21 06:29 06:29 07:26 WBC 8.1 RBC 3.69 L Hgb 11.4 L Hct 34.8 L MCV 94.3 MCH 30.9 MCHC 32.8 RDW 13.6 Plt Count 346 D MPV 9.7 Immature Gran % (Auto) 0.2 Neut % (Auto) 70.4 Lymph % (Auto) 21.0 [place] % (Auto) 7.5 Eos % (Auto) 0.7 Baso % (Auto) 0.2 Lymph # (Auto) 1.7 [place] # (Auto) 0.6 Eos # (Auto) 0.1 Baso # (Auto) 0.0 Abs Immat Gran (auto) 0.02 Absolute Neuts (auto) 5.7 Absolute Nucleated RBC 0.000 Nucleated RBC % (auto) 0.0 Sodium 140 Potassium 3.7 Chloride 101 Carbon Dioxide 29 Anion Gap 14 BUN 10 Creatinine 0.56 Estim Creat Clear Calc 96.7 Estimated GFR > 60 POC Glucose 97 Random Glucose Fasting Glucose 110 H Calcium 8.4 Total Bilirubin 0.6 AST 20 ALT 32 H Alkaline Phosphatase 77 Total Protein 6.6 Albumin 3.1 L 10/23/21 11:33 WBC RBC Hgb Hct MCV MCH MCHC RDW Plt Count MPV Immature Gran % (Auto) Neut % (Auto) Lymph % (Auto) [place] % (Auto) Eos % (Auto) Baso % (Auto) Lymph # (Auto) [place] # (Auto) Eos # (Auto) Baso # (Auto) Abs Immat Gran (auto) Absolute Neuts (auto) Absolute Nucleated RBC Nucleated RBC % (auto) Sodium Potassium Chloride Carbon Dioxide Anion Gap BUN Creatinine Estim Creat Clear Calc Estimated GFR POC Glucose 158 H Random Glucose Fasting Glucose Calcium Total Bilirubin AST ALT Alkaline Phosphatase Total Protein Albumin Discharge Plan Discharge Patient Disposition: Xfer LTC Discharge Diagnosis: UTI Referrals: [facility] [Outside] - 1 Week Jorje Perrin MD [Primary Care Provider] - 1 Week Discharge Medications: New cefuroxime axetil 500 mg tablet 500 mg PO BID 10 Days Qty: 20 0RF diltiazem HCl [Cardizem CD] 180 mg Capsule,Extended Release 24hr 180 mg PO BID Qty: 60 0RF Protocol: Hold for SBP/HR < HOLD for SBP < : 90 HOLD for HR < : 60 Continued albuterol sulfate 90 mcg/actuation HFA aerosol inhaler 2 puff inhalation Q6H PRN (Reason: Shortness Of Breath Or Wheezing) 0RF metformin 500 mg tablet 500 mg PO BID Qty: 180 2RF amlodipine 10 mg tablet 10 mg PO DAILY Qty: 90 0RF Lantus Solostar U-100 Insulin 100 unit/mL (3 mL) insulin pen 30 unit subcut BEDTIME Qty: 12 0RF pregabalin 100 mg capsule 100 mg PO TID 30 Days Qty: 90 3RF simvastatin 10 mg tablet 10 mg PO BEDTIME Qty: 90 3RF clonazepam 1 mg tablet 1 mg PO BID 30 Days Qty: 60 0RF escitalopram oxalate 10 mg tablet 10 mg PO DAILY 90 Days Qty: 90 0RF acetaminophen 325 mg Tablet 650 mg PO Q4H PRN (Reason: Fever Or Pain) 0RF bisacodyl 10 mg Suppository 10 mg RI DAILY PRN (Reason: Constipation) 0RF loperamide 2 mg Tablet 2 mg PO Q6H PRN (Reason: Loose Stool) 0RF nitrofurantoin monohyd/m-cryst [Macrobid] 100 mg Capsule 100 mg PO BID 0RF Rx Instructions: must administer with a meal/food, started 10/16/21, ordered for 10 days metoprolol succinate 25 mg tablet extended release 24 hr 25 mg PO DAILY 0RF Protocol: Hold for SBP/HR < HOLD for SBP < : 90 HOLD for HR < : 60 multivitamin with minerals Tablet 1 tab PO DAILY 0RF Probiotic 5 billion cell Capsule, Sprinkle 1 cap PO BID 0RF Rx Instructions: ordered 10/16 until 10/30 sennosides [senna] 8.6 mg Tablet 17.2 mg PO DAILY PRN (Reason: Constipation) 0RF trazodone 50 mg tablet 50 mg PO BEDTIME 0RF Xarelto 15 mg Tablet 15 mg PO BID 0RF Rx Instructions: ordered 10/13 through 11/03 must administer with evening meal (DME) Pull ups Extra LArge See Rx Instructions .Route .MEDSUPPLY Qty: 120 11RF Rx Instructions: As directed Discharge Orders: Discharge Order (Routine); Ordered 10/23/21 Ordered By: Sebastien Medina Diet: advance to usual diet Activity on Discharge: As tolerated Stand Alone Forms: Patient Portal Discharge page Care Plan Goals: Complete course of Ceftin. Resume all previous meds Health Concerns: Maintain highest level of function Plan of Treatment: As per receiving facility Assessment: See discharge summary
[2021-10-23 14:18] LABS: COVID-19 Test Negative (Negative)
== END 2021-10-23 16:49 | DRG 871 ==
LOC: HO.ED 11:07 → HO.EDOVER 14:00 → HO.S3 10-18 13:29 → HO.EDOVER 10-18 13:48 → HO.IMC 10-18 14:13
PROVIDERS: Admitting Provider Nurse Practitioner Acute Care; Emergency Provider Emergency Medicine; PCP Family Medicine; Visit Provider Hospitalist
DX: A41.9 Sepsis, unspecified organism (principal); G93.41 Metabolic encephalopathy; N39.0 Urinary tract infection, site not specified; Z16.12 Extended spectrum beta lactamase (ESBL) resistance; E87.2 Acidosis; I50.32 Chronic diastolic (congestive) heart failure; B96.20 Unspecified Escherichia coli [E. coli] as the cause of diseases classified elsewhere; E78.5 Hyperlipidemia, unspecified; I11.0 Hypertensive heart disease with heart failure; R65.20 Severe sepsis without septic shock; M51.36 Other intervertebral disc degeneration, lumbar region; F41.9 Anxiety disorder, unspecified; E87.6 Hypokalemia; I48.0 Paroxysmal atrial fibrillation; E11.65 Type 2 diabetes mellitus with hyperglycemia; F32.A Depression, unspecified; Z20.822 Contact with and (suspected) exposure to COVID-19; Z86.718 Personal history of other venous thrombosis and embolism; Z87.440 Personal history of urinary (tract) infections; Z91.041 Radiographic dye allergy status; Z88.1 Allergy status to other antibiotic agents; Z88.2 Allergy status to sulfonamides; Z88.8 Allergy status to other drugs, medicaments and biological substances; Z79.4 Long term (current) use of insulin; Z79.84 Long term (current) use of oral hypoglycemic drugs; Z79.01 Long term (current) use of anticoagulants; Z79.899 Other long term (current) drug therapy
CPT/HCPCS: 36415; 70450; 71045; 80048; 80053; 80076; 81001; 82803; 82947; 83605; 83735; 83880; 84484; 85025; 85610; 85730; 87040; 87635; 93005; 94660; 96361; 96365; 96375; 99285; 99291; C1758; J1335; J1940; J2185; J2405

== ENCOUNTER 2021-12-25 12:41 | Inpatient (IN) | payer MEDICARE, MEDICAID, SELFPAY ==
[2021-12-25] VITALS (16 sets, daily range): BP systolic 99–141; BP diastolic 48–69; PULSE 98–145; RESP 18–34; TEMP 36.9–38.6; O2SAT 98–100; BMI 27.6
--- NOTE | ~2021-12-25 | CT_ITS ---
EXAMINATION: CT ABDOMEN AND PELVIS WITHOUT CONTRAST CLINICAL INFORMATION: Vomiting, fever, hypoxia COMPARISON: Abdominal ultrasound 03/16/2019, CT abdomen and pelvis noncontrast 07/30/2015. Chest radiographs 12/25/2021, 10/20/2021 TECHNIQUE: Multidetector volumetric imaging was performed from the superior aspect of the liver through the pubic symphysis. No oral or intravenous contrast. Sagittal and coronal reformatted images were obtained on the technologist's workstation. This CT examination was performed using dose optimization techniques as appropriate, variously including the following: *Automated exposure control *Adjustment of mA and/or kV according to patient size (this includes techniques or standardized protocols for targeted exams where dose is matched to indication/reason for exam; i.e. extremities or head) *Use of iterative reconstruction technique DLP: 1013 mGy-cm FINDINGS: PATIENT STUDY LIMITATIONS: Respiratory motion artifact. Also, patient's arms are down with associated streak artifact. LUNG BASES: Infiltrate right posterior base with probable small effusion. Calcification mitral annulus. No pericardial effusion. LIVER, GALLBLADDER, AND BILIARY TREE: Liver is enlarged, slightly increased since prior exam 2015. Liver surface is blurred due to the motion artifact. No appreciable focal hepatic parenchymal lesion on noncontrast exam. Fullness central biliary tree. No definite intrahepatic biliary ductal dilatation. Gallbladder is dilated to 5 cm in diameter. There are dependent gallstones again seen probable gallbladder wall thickening, difficult to measure due to the motion artifact. Probable common duct enlargement 1.1 cm. No visible ductal calculus. PANCREAS: Unremarkable. SPLEEN: Unremarkable. ADRENAL GLANDS: Unremarkable. KIDNEYS AND URETERS: No hydronephrosis, hydroureter, definite calculi, or perinephric stranding. BLADDER: Only partially distended. Smooth thickening left lateral bladder wall. No diverticulum or bladder calculus. GASTROINTESTINAL TRACT: No bowel obstruction, pneumatosis, or free air. No appendiceal dilatation or inflammatory changes right lower quadrant. No ascites or fluid collection. ABDOMINAL WALL: No significant hernia is appreciated. LYMPH NODES: No lymphadenopathy. VASCULAR: Unremarkable on noncontrast exam. Atherosclerotic calcifications. PELVIC VISCERA: No pelvic mass or ascites. OSSEOUS STRUCTURES: No acute bony abnormality. Levocurvature lumbar spine with degenerative disc changes. CT/CT abdomen pelvis wo con IMPRESSION: -Study limitations, respiratory motion artifact, streak artifact from arms. -Dilated gallbladder with gallstones and probable extrahepatic ductal dilatation. No visible ductal calculus. Hepatomegaly. Recommend further evaluation with right upper quadrant ultrasound. -Infiltrate right lung base with small effusion. -Smooth nonspecific thickening left bladder wall. This may be further assessed with nonemergent cystoscopy. No hydronephrosis or calculi. -No bowel obstruction or focal inflammatory changes in bowel or mesentery.
--- NOTE | ~2021-12-25 | XR_ITS ---
EXAMINATION: XR CHEST CLINICAL INFORMATION: Vomiting, possible aspiration. COMPARISON: 10/20/2021 chest radiograph. TECHNIQUE: Frontal view of the chest was obtained. FINDINGS: There is mild elevation of the right hemidiaphragm. Lungs appear clear. The heart and mediastinal structures are unremarkable. XR/XR chest 1V IMPRESSION: No acute cardiopulmonary process. This represents interval improvement from the previous study.
--- NOTE | ~2021-12-25 | NM_ITS ---
EXAMINATION: BILIARY TRACT IMAGING STUDY CLINICAL INFORMATION: Cholelithiasis. Question cholecystitis.. COMPARISON: No previous biliary scan is available for comparison. The diagnostic CT scan of the abdomen and pelvis, dated 12/25/2021, is available for comparison.. TECHNIQUE: Serial gamma scintillation camera images were obtained over the abdomen for a total observation period of 120 minutes following the intravenous administration of 5 mCi Tc-99m Mebrofenin. FINDINGS: There is good concentration of activity in the liver by 5 minutes post injection. Biliary activity is visualized by 18 minutes. Small bowel is well visualized by 20 minutes. The gallbladder is not visualized at any time the study up to its termination at 2 hours post injection. At the end of the study at this time there is only very minimal retention of activity in the liver an diffuse small bowel activity is well visualized. NM/NM hepatobiliary wo pharm IMPRESSION: Nonvisualization the gallbladder is evidence of an obstructed cystic duct and strong evidence to suggest the diagnosis of acute cholecystitis. The common bile duct is patent. Liver function appears normal.
--- NOTE | ~2021-12-25 | US_ITS ---
EXAMINATION: US ABDOMEN LIMITED CLINICAL INFORMATION: Assess for gallbladder changes. COMPARISON: Ultrasound dated 12/25/2021. TECHNIQUE: Real-time imaging of the right upper quadrant abdominal viscera. FINDINGS: Sludge and stones present within the gallbladder which shows wall thickening measuring up to 6 mm. A cholecystostomy tube is present within the gallbladder. Common bile duct measures 0.6 cm proximally and up to 1.26 cm distally. Sludge is present within the distal common bile duct. US/US abdomen limited IMPRESSION: * There is choledocholithiasis with increased caliber of the distal common bile duct which now measures up to 12.6 mm. * Sludge and stones redemonstrated within the thick walled gallbladder which contains a cholecystostomy tube.
--- NOTE | ~2021-12-25 | US_ITS ---
EXAMINATION: US ABDOMEN LIMITED CLINICAL INFORMATION: Fever. Elevated liver function tests. COMPARISON: 12/25/2021 TECHNIQUE: Real-time imaging of the right upper quadrant abdominal viscera. The photonics engineering technologist reports that the request is for a focused examination on the gallbladder. FINDINGS: Gallbladder is moderately distended and contains sludge and shadowing calculi. The gallbladder wall is approximately 0.3 cm - 0.4 cm thick. Small volume of fluid is present in the pericholecystic region but this is nonspecific. The photonics engineering technologist reports that the patient did not have any pain over the region of the gallbladder. Common bile duct was visible proximally but obscured by bowel gas distally. The visualized duct measured up to 0.7 cm diameter. No intrahepatic bile duct dilatation. The visualized portions the liver have normal echotexture. Color Doppler images show normal flow direction in the main portal vein. US/US abdomen limited IMPRESSION: Gallbladder is abnormal. It has a mildly thickened wall and contains sludge and calculi. Small volume of pericholecystic fluid is present. Although these imaging findings suggest possibility of cholecystitis, there is no reported pain over the gallbladder. Pain would typically be expected in the setting of acute cholecystitis. Note that the imaging findings can be nonspecific and may be observed in patients with hepatitis, congestive failure or sepsis.
--- NOTE | ~2021-12-25 | CT_ITS ---
PROCEDURE: CT GUIDED DRAINAGE, PERITONEAL ABSCESS CLINICAL INFORMATION: Likely acute cholecystitis by HIDA scan 12/28/2021. COMPARISON: HIDA scan 12/28/2021, ultrasound abdomen and CT abdomen and pelvis 12/25/2021. TECHNIQUE: Following explaining the CT-guided gallbladder drainage catheter procedure, and the benefits and risks via the phone to the patient's son, a written consent was obtained. The patient was placed supine on the CT table and preliminary CT imaging was obtained. Lead markers were placed along the right lateral abdomen and repeat CT imaging was performed. An optimal site was selected and marked on the skin. The marked area was cleaned and draped in the usual sterile manner. 1% lidocaine was injected at the puncture site. A 5-Vincentian Yueh catheter was then advanced transhepatically into the gallbladder under CT fluoroscopy. After confirming the tip of the Yueh catheter in the gallbladder lumen, a 0.035 J-wire was advanced after removing the stylet. The catheter was withdrawn and a 10.5-Vincentian APD catheter was advanced over the guidewire and placed within the gallbladder fossa. The guidewire was removed, a pigtail was formed and the catheter connected to a suction bulb. A sterile dressing was applied post procedure. Conscious sedation was utilized during the exam. There were no immediate complications. Approximately 30 minutes of conscious sedation time was done and the patient observed. This CT examination was performed using dose optimization techniques as appropriate, variously including the following: *Automated exposure control *Adjustment of mA and/or kV according to patient size (this includes techniques or standardized protocols for targeted exams where dose is matched to indication/reason for exam; i.e. extremities or head) *Use of iterative reconstruction technique DLP: 493 mGy-cm FINDINGS: On preliminary CT imaging, there are gallstones with a mildly dilated gallbladder which appears smaller than the previous study. There is no pericholecystic fluid collection. There are small bilateral pleural effusions with underlying dependent atelectasis. There are numerous gallstones noted. There was successful insertion of a 10.5-Vincentian APD catheter within the gallbladder fossa. There was no immediate drainage seen, likely secondary to a thick collection. CT/CT drain peritoneum IMPRESSION: Successful CT fluoroscopy-guided placement of a gallbladder drainage catheter. No fluid could be aspirated. Results were conveyed to the surgeon, Dr. De Luna.
--- NOTE | ~2021-12-25 | FL_ITS ---
EXAMINATION: XR FLUOROSCOPY WITH IMAGES CLINICAL INFORMATION: Gallbladder/biliary abnormality. COMPARISON: 12/25/2021 CT scan of the abdomen and pelvis. TECHNIQUE: Fluoroscopy performed by Dr. Mendez. Fluoroscopy time: 3.6 minutes DAP: 13.5 mGycm2 Images: 12 FL/FL guidance in OR FINDINGS/IMPRESSION: Images show opacification of the common bile duct. A drainage catheter overlies the right upper quadrant. Please refer to the procedure report for detailed findings.
--- NOTE | 2021-12-25 13:24 | ECG_ITS ---
Test Reason : ams Blood Pressure : / mmHG Vent. Rate : 113 BPM Atrial Rate : 000 BPM P-R Int : 000 ms QRS Dur : 090 ms QT Int : 292 ms P-R-T Axes : 000 -31 135 degrees QTc Int : 400 ms Atrial fibrillation with rapid ventricular response Left axis deviation Nonspecific ST and T wave abnormality Abnormal ECG When compared with ECG of 18-OCT-2021 08:00, No significant change was found Referred By: Faith Mariano Electronically Signed By:Edison Maddox
--- NOTE | 2021-12-25 13:35 | ED.AMS ---
HPI - Altered Mental Status General Chief Complaint: Altered Mental Status Stated Complaint: AMS Time Seen by Provider: 12/25/21 13:10 Source: patient and old records reviewed Mode of arrival: EMS Limitations: altered mental status History of Present Illness HPI narrative: 76 yo female with hx of UTI, HLD, DM, afib on xarelto, [facility] from SNF here with c/o increasing confusion, low grade temps, low O2 saturations after vomiting last night and concern for aspiration. On arrival to ED sats in low 90s up to mid 90s on 4L NC, fever 101, says yes or no. Tachycardic. MD complaint: altered mental status and weakness Onset (ago): day(s) (this morning) Timing confirmed by: caregiver Severity: moderate Consistency of symptoms: constant Context: recent fever Associated symptoms: fever, chills, loss of appetite, malaise, nausea/vomiting, shortness of breath and other (hypoxia) Treatments prior to arrival: oxygen Related Data Home Medications Medication Instructions Recorded Confirmed albuterol sulfate 90 mcg/actuation 2 puff inhalation Q6H PRN 06/18/20 12/25/21 aerosol inhaler Shortness Of Breath Or Wheezing Lactobacil.acidophilus-Bifido.animalis 1 cap PO BID 10/17/21 12/25/21 5 billion cell sprinkle capsule (Probiotic) acetaminophen 325 mg tablet 650 mg PO Q4H PRN Fever Or Pain 10/17/21 12/25/21 bisacodyl 10 mg rectal suppository 10 mg MT DAILY PRN Constipation 10/17/21 12/25/21 loperamide 2 mg tablet 2 mg PO Q6H PRN Loose Stool 10/17/21 12/25/21 metoprolol succinate 25 mg 25 mg PO DAILY 10/17/21 12/25/21 tablet,extended release 24 hr multivitamin with minerals 1 tab PO DAILY 10/17/21 12/25/21 sennosides 8.6 mg tablet (senna) 17.2 mg PO DAILY PRN Constipation 10/17/21 12/25/21 trazodone 50 mg tablet 50 mg PO BEDTIME 10/17/21 12/25/21 furosemide 20 mg tablet 1 tab PO DAILY 12/25/21 12/25/21 insulin glargine 100 unit/mL (3 20 unit subcut DAILY 12/25/21 12/25/21 mL) subcutaneous pen (Lantus Solostar U-100 Insulin) menthol 4 % topical gel (Biofreeze 1 appl topical BID 12/25/21 12/25/21 (menthol)) mirtazapine 7.5 mg tablet 7.5 mg PO BEDTIME 12/25/21 12/25/21 nystatin 100,000 unit/gram topical 1 appl topical BID 12/25/21 12/25/21 cream potassium chloride 10 mEq 1 cap PO DAILY 12/25/21 12/25/21 capsule,extended release potassium chloride 20 mEq 1 tab PO BID 12/25/21 12/25/21 tablet,extended release(part/cryst) rivaroxaban 20 mg tablet (Xarelto) 1 tab PO DAILY 12/25/21 12/25/21 Previous Rx's Medication Instructions Recorded Pull ups Extra LArge #120 ea 02/12/21 metformin 500 mg tablet 500 mg PO BID #180 tabs 04/01/21 amlodipine 10 mg tablet 10 mg PO DAILY #90 tabs 07/17/21 pregabalin 100 mg capsule 100 mg PO TID 30 days #90 caps 08/03/21 simvastatin 10 mg tablet 10 mg PO BEDTIME #90 tabs 08/27/21 clonazepam 1 mg tablet 1 mg PO BID 30 days #60 tabs 09/24/21 escitalopram oxalate 10 mg tablet 10 mg PO DAILY 90 days #90 tabs 09/24/21 diltiazem HCl 180 mg 180 mg PO BID #60 caps 10/23/21 capsule,extended release 24 hr (Cardizem CD) Allergies Allergy/AdvReac Type Severity Reaction Status Date / Time sulfamethoxazole Allergy Intermediate rash face Verified 10/17/21 10:17 [From Bactrim] trimethoprim [From Bactrim] Allergy Intermediate rash face Verified 10/17/21 10:17 amoxicillin [Augmentin] Allergy Unknown Diarrhea Verified 10/17/21 10:17 clavulanic acid [Augmentin] Allergy Unknown Diarrhea Verified 10/17/21 10:17 Iodinated Contrast Media Allergy Unknown THROAT Verified 10/17/21 10:17 [IV Dye, Iodine Containing CLOSES Contrast ] UP/SWELLIN iodine [IODINE] Allergy Unknown ANAPHYLAXIS Verified 10/17/21 10:17 lisinopril [LISINOPRIL] Allergy Unknown UNKNOWN, Verified 10/17/21 10:17 cough, cough prednisone [PREDNISONE] Allergy Unknown INCREASE Verified 10/17/21 10:17 BLOOD PRESSURE quetiapine [From SEROQUEL] Allergy Unknown SWELLING Verified 10/17/21 10:17 X-ray dye Allergy Unknown Facial Verified 10/17/21 10:17 swelling/ trouble breathing apixaban [From Eliquis] AdvReac Intermediate Diarrhea Verified 10/17/21 10:17 Review of Systems Review of Systems: ROS unable to be obtained due to altered mental status [facility] Past Medical History Attestation statement: The following information was validated with the patient. Medical History Afib DVT, bilateral lower limbs Hypercholesterolemia Lumbar degenerative disc disease Recurrent UTI Type 2 diabetes mellitus with hyperglycemia Surgical History History of lumpectomy of right breast History of tubal ligation Family History Family History Father Diabetes Heart disease Mother Heart disease Son Opiate addiction Social History Social History Household Members: Unknown / Unable to assess Household Members Other:: Brought to ER by son with whom she lives Housing: Unknown / Unable to assess Unable to assess alcohol history related to: Unknown Alcohol intake: unknown Patient Tobacco Use Status: Never used Tobacco e-Cigarette/Vaping Use: Never Used Second Hand Smoke Exposure: No Use of substances other than those prescribed or required for medical reasons: Unable to respond Advance Directives: Yes Advance Directives on File: Yes Advance Directives Date on File: 01/09/21 service: No Current occupational status: retired Cognitive needs: Yes (Electric Wheel Chair) Hearing needs: Yes (Earring Aids) Vision needs: Yes (Glasses) Physical Exam ED Vital Signs: Vital Signs - 24 hr 12/25/21 13:05 12/25/21 13:34 12/25/21 14:00 Temperature 98.5 F 101.5 F H 101.5 F H Pulse Rate 98 109 H 110 H Respiratory Rate 18 27 H 24 H Blood Pressure 139/60 141/58 H Pulse Oximetry 98 99 98 Oxygen Delivery Method Nasal Cannula Nasal Cannula Nasal Cannula Oxygen Flow Rate 4 4 12/25/21 14:54 12/25/21 15:33 12/25/21 16:24 Temperature 100.1 F 100.6 F H Pulse Rate 123 H 127 H 100 Respiratory Rate 33 H 25 H 34 H Blood Pressure 133/61 133/58 L 123/69 Pulse Oximetry 98 99 99 Oxygen Delivery Method Nasal Cannula Nasal Cannula Nasal Cannula Oxygen Flow Rate 4 4 4 BMI result Body Mass Index 27.6 Appearance: Lethargic confused Mild acute distress. Eyes: Pupils equal, round and reactive to light. ENT: Pharynx dry MM Neck: Normal inspection. Neck supple. CVS: tachycardic heart rate and rhythm. Pulses normal. Respiratory: No respiratory distress. Breath sounds diminished in bases Abdomen: Soft and non-tender. Does not grimace Skin: Skin warm and dry. pale skin color. Normal skin turgor. Extremities: No lower extremity edema. No calf ttp Neuro: Confused No motor deficit. No sensory deficit. Course Course Course Narrative: signed out to Dr. Romeo pending repeat lactic acid and reassessments MDM - Altered Mental Status MDM Narrative Medical decision making narrative: 76 yo female with hx of UTI, HLD, DM, afib on xarelto, ANABELL from SNF here with confusion, weakness, hypoxia - vomited and concern for aspiration. At this time labs, lactic acid, cultures, CXR for aspiration pneumonia. IV zosyn empirically - anticipate admission. Lab Data Result diagrams: 12/25/21 13:55 12/25/21 14:46 Labs: Lab Results 12/25/21 12/25/21 12/25/21 Range/Units 13:55 13:55 13:55 WBC 16.8 H (4.8-10.8) X10*3/uL RBC 3.53 L (4.20-5.50) X10*6/uL Hgb 11.0 L (12.0-16.0) g/dl Hct 33.7 L (37.0-47.0) % MCV 95.5 (80.0-98.0) fL MCH 31.2 (27.0-33.0) pg MCHC 32.6 (31.0-35.0) g/dl RDW 14.6 (11.0-16.0) % Plt Count 168 D (160-400) X10*3/uL MPV 11.1 (9.4-12.3) fL Immature Gran % (Auto) Cancelled Neut % (Auto) Cancelled Lymph % (Auto) Cancelled Kidder % (Auto) Cancelled Eos % (Auto) Cancelled Baso % (Auto) Cancelled Lymph # (Auto) Cancelled Kid[place] # (Auto) Cancelled Eos # (Auto) Cancelled Baso # (Auto) Cancelled Abs Immat Gran (auto) Cancelled Absolute Neuts (auto) Cancelled Absolute Nucleated RBC 0.000 (0.0-0.012) X10*3/uL Nucleated RBC % (auto) 0.0 (0.0-0.2) /100WBC Neutrophils % (Manual) 79 H (45-73) % Band Neutrophils % 17 H (3-5) % Lymphocytes % (Manual) 3 L (20-40) % Monocytes % (Manual) 1 L (2-11) % Abs Neuts (Manual) 16.1 H (2.0-8.3) X10*3/uL Lymphocytes # (Manual) 0.5 L (1.2-4.9) X10*3/uL Monocytes # (Manual) 0.2 (0.1-1.2) X10*3/uL Toxic Vacuolation PRESENT Platelet Estimate NORMAL (NORMAL) Plt Morphology Comment NORMAL RBC Morphology NOTED Ovalocytes 1+ (5-14) /OIF Lisette Cells 2+ (3-5) /OIF PT (10.0-13.1) SEC INR (0.9-1.1) VBG pH (7.32-7.43) VBG pCO2 mmHg VBG pO2 mmHg VBG HCO3 (22-26) mmol/L VBG O2 Saturation % VBG Base Excess mmol/L Sodium (135-145) mmol/L Potassium (3.3-5.1) mmol/L Chloride (96-108) mmol/L Carbon Dioxide (22-29) mmol/L Anion Gap (12-20) BUN (9-16) mg/dL Creatinine (0.5-1.4) mg/dL Estim Creat Clear Calc Estimated GFR Random Glucose (60-115) mg/dL Lactic Acid (0.5-2.0) mmol/L Calcium (8.4-10.2) mg/dL Magnesium (1.6-2.6) mg/dL Total Bilirubin (0.0-1.0) mg/dL Direct Bilirubin (0.0-0.5) mg/dL AST (5-31) U/L ALT (0-31) U/L Alkaline Phosphatase (39-117) U/L Ammonia 24 (13-55) umol/L Troponin I High Sens (<3.5-17.0) ng/L B-Natriuretic Peptide 310 H (<100) pg/mL Total Protein (6.5-8.0) g/dL Albumin (3.5-5.0) g/dL Urine Color Urine Appearance Urine pH (5.0-8.0) Ur Specific [place] (1.005-1.025) Urine Protein (NEG-TRACE) MG/DL Urine Glucose (UA) (NEG) MG/DL Urine Ketones (NEG) MG/DL Urine Blood (NEG) Urine Nitrite (NEG) Ur Leukocyte Esterase (NEG) Urine RBC (0) /HPF Urine WBC (0-4) /HPF Ur Squamous Epith Cells /LPF Amorphous Sediment /LPF Urine Bacteria /LPF RBC Casts /LPF COVID-19 (ELLEN) (Negative) COVID-19 Clin Com 12/25/21 12/25/21 12/25/21 Range/Units 13:55 13:55 13:55 WBC (4.8-10.8) X10*3/uL RBC (4.20-5.50) X10*6/uL Hgb (12.0-16.0) g/dl Hct (37.0-47.0) % MCV (80.0-98.0) fL MCH (27.0-33.0) pg MCHC (31.0-35.0) g/dl RDW (11.0-16.0) % Plt Count (160-400) X10*3/uL MPV (9.4-12.3) fL Immature Gran % (Auto) Neut % (Auto) Lymph % (Auto) Kidder % (Auto) Eos % (Auto) Baso % (Auto) Lymph # (Auto) Kidder # (Auto) Eos # (Auto) Baso # (Auto) Abs Immat Gran (auto) Absolute Neuts (auto) Absolute Nucleated RBC (0.0-0.012) X10*3/uL Nucleated RBC % (auto) (0.0-0.2) /100WBC Neutrophils % (Manual) (45-73) % Band Neutrophils % (3-5) % Lymphocytes % (Manual) (20-40) % Monocytes % (Manual) (2-11) % Abs Neuts (Manual) (2.0-8.3) X10*3/uL Lymphocytes # (Manual) (1.2-4.9) X10*3/uL Monocytes # (Manual) (0.1-1.2) X10*3/uL Toxic Vacuolation Platelet Estimate (NORMAL) Plt Morphology Comment RBC Morphology Ovalocytes /OIF Lisette Cells /OIF PT 36.8 H (10.0-13.1) SEC INR 3.1 H (0.9-1.1) VBG pH (7.32-7.43) VBG pCO2 mmHg VBG pO2 mmHg VBG HCO3 (22-26) mmol/L VBG O2 Saturation % VBG Base Excess mmol/L Sodium (135-145) mmol/L Potassium (3.3-5.1) mmol/L Chloride (96-108) mmol/L Carbon Dioxide (22-29) mmol/L Anion Gap (12-20) BUN (9-16) mg/dL Creatinine (0.5-1.4) mg/dL Estim Creat Clear Calc Estimated GFR Random Glucose (60-115) mg/dL Lactic Acid 2.5 H* (0.5-2.0) mmol/L Calcium (8.4-10.2) mg/dL Magnesium (1.6-2.6) mg/dL Total Bilirubin (0.0-1.0) mg/dL Direct Bilirubin (0.0-0.5) mg/dL AST (5-31) U/L ALT (0-31) U/L Alkaline Phosphatase (39-117) U/L Ammonia (13-55) umol/L Troponin I High Sens 184.6 H* (<3.5-17.0) ng/L B-Natriuretic Peptide (<100) pg/mL Total Protein (6.5-8.0) g/dL Albumin (3.5-5.0) g/dL Urine Color Urine Appearance Urine pH (5.0-8.0) Ur Specific [place] (1.005-1.025) Urine Protein (NEG-TRACE) MG/DL Urine Glucose (UA) (NEG) MG/DL Urine Ketones (NEG) MG/DL Urine Blood (NEG) Urine Nitrite (NEG) Ur Leukocyte Esterase (NEG) Urine RBC (0) /HPF Urine WBC (0-4) /HPF Ur Squamous Epith Cells /LPF Amorphous Sediment /LPF Urine Bacteria /LPF RBC Casts /LPF COVID-19 (ELLEN) (Negative) COVID-19 Clin Com 12/25/21 12/25/21 12/25/21 Range/Units 13:55 14:03 14:35 WBC (4.8-10.8) X10*3/uL RBC (4.20-5.50) X10*6/uL Hgb (12.0-16.0) g/dl Hct (37.0-47.0) % MCV (80.0-98.0) fL MCH (27.0-33.0) pg MCHC (31.0-35.0) g/dl RDW (11.0-16.0) % Plt Count (160-400) X10*3/uL MPV (9.4-12.3) fL Immature Gran % (Auto) Neut % (Auto) Lymph % (Auto) Kidder % (Auto) Eos % (Auto) Baso % (Auto) Lymph # (Auto) Kidder # (Auto) Eos # (Auto) Baso # (Auto) Abs Immat Gran (auto) Absolute Neuts (auto) Absolute Nucleated RBC (0.0-0.012) X10*3/uL Nucleated RBC % (auto) (0.0-0.2) /100WBC Neutrophils % (Manual) (45-73) % Band Neutrophils % (3-5) % Lymphocytes % (Manual) (20-40) % Monocytes % (Manual) (2-11) % Abs Neuts (Manual) (2.0-8.3) X10*3/uL Lymphocytes # (Manual) (1.2-4.9) X10*3/uL Monocytes # (Manual) (0.1-1.2) X10*3/uL Toxic Vacuolation Platelet Estimate (NORMAL) Plt Morphology Comment RBC Morphology Ovalocytes /OIF Lisette Cells /OIF PT (10.0-13.1) SEC INR (0.9-1.1) VBG pH 7.37 (7.32-7.43) VBG pCO2 42 mmHg VBG pO2 58 mmHg VBG HCO3 24 (22-26) mmol/L VBG O2 Saturation 85.0 % VBG Base Excess -0.4 mmol/L Sodium (135-145) mmol/L Potassium (3.3-5.1) mmol/L Chloride (96-108) mmol/L Carbon Dioxide (22-29) mmol/L Anion Gap (12-20) BUN (9-16) mg/dL Creatinine (0.5-1.4) mg/dL Estim Creat Clear Calc Estimated GFR Random Glucose (60-115) mg/dL Lactic Acid (0.5-2.0) mmol/L Calcium (8.4-10.2) mg/dL Magnesium (1.6-2.6) mg/dL Total Bilirubin (0.0-1.0) mg/dL Direct Bilirubin (0.0-0.5) mg/dL AST (5-31) U/L ALT (0-31) U/L Alkaline Phosphatase (39-117) U/L Ammonia (13-55) umol/L Troponin I High Sens (<3.5-17.0) ng/L B-Natriuretic Peptide (<100) pg/mL Total Protein (6.5-8.0) g/dL Albumin (3.5-5.0) g/dL Urine Color ORANGE A Urine Appearance CLOUDY Urine pH 5.5 (5.0-8.0) Ur Specific [place] 1.025 (1.005-1.025) Urine Protein 2+ H (NEG-TRACE) MG/DL Urine Glucose (UA) 250 H (NEG) MG/DL Urine Ketones 5 (NEG) MG/DL Urine Blood 3+ H (NEG) Urine Nitrite SEE NOTE (NEG) Ur Leukocyte Esterase SEE NOTE (NEG) Urine RBC 0-2 (0) /HPF Urine WBC 1-4 (0-4) /HPF Ur Squamous Epith Cells 1+ /LPF Amorphous Sediment 3+ /LPF Urine Bacteria 4+ /LPF RBC Casts 5-9 /LPF COVID-19 (ELLEN) Negative (Negative) COVID-19 Clin Com See Note 12/25/21 Range/Units 14:46 WBC (4.8-10.8) X10*3/uL RBC (4.20-5.50) X10*6/uL Hgb (12.0-16.0) g/dl Hct (37.0-47.0) % MCV (80.0-98.0) fL MCH (27.0-33.0) pg MCHC (31.0-35.0) g/dl RDW (11.0-16.0) % Plt Count (160-400) X10*3/uL MPV (9.4-12.3) fL Immature Gran % (Auto) Neut % (Auto) Lymph % (Auto) Kidder % (Auto) Eos % (Auto) Baso % (Auto) Lymph # (Auto) Kidder # (Auto) Eos # (Auto) Baso # (Auto) Abs Immat Gran (auto) Absolute Neuts (auto) Absolute Nucleated RBC (0.0-0.012) X10*3/uL Nucleated RBC % (auto) (0.0-0.2) /100WBC Neutrophils % (Manual) (45-73) % Band Neutrophils % (3-5) % Lymphocytes % (Manual) (20-40) % Monocytes % (Manual) (2-11) % Abs Neuts (Manual) (2.0-8.3) X10*3/uL Lymphocytes # (Manual) (1.2-4.9) X10*3/uL Monocytes # (Manual) (0.1-1.2) X10*3/uL Toxic Vacuolation Platelet Estimate (NORMAL) Plt Morphology Comment RBC Morphology Ovalocytes /OIF [place] Cells /OIF PT (10.0-13.1) SEC INR (0.9-1.1) VBG pH (7.32-7.43) VBG pCO2 mmHg VBG pO2 mmHg VBG HCO3 (22-26) mmol/L VBG O2 Saturation % VBG Base Excess mmol/L Sodium 143 (135-145) mmol/L Potassium 3.9 (3.3-5.1) mmol/L Chloride 107 (96-108) mmol/L Carbon Dioxide 25 (22-29) mmol/L Anion Gap 15 (12-20) BUN 44 H D (9-16) mg/dL Creatinine 1.52 H (0.5-1.4) mg/dL Estim Creat Clear Calc 36.0 Estimated GFR 33 Random Glucose 167 H (60-115) mg/dL Lactic Acid (0.5-2.0) mmol/L Calcium 7.7 L D (8.4-10.2) mg/dL Magnesium 1.5 L (1.6-2.6) mg/dL Total Bilirubin 2.7 H (0.0-1.0) mg/dL Direct Bilirubin 2.1 H (0.0-0.5) mg/dL AST 127 H (5-31) U/L ALT 186 H (0-31) U/L Alkaline Phosphatase 210 H D (39-117) U/L Ammonia (13-55) umol/L Troponin I High Sens (<3.5-17.0) ng/L B-Natriuretic Peptide (<100) pg/mL Total Protein 6.4 L (6.5-8.0) g/dL Albumin 3.1 L (3.5-5.0) g/dL Urine Color Urine Appearance Urine pH (5.0-8.0) Ur Specific [place] (1.005-1.025) Urine Protein (NEG-TRACE) MG/DL Urine Glucose (UA) (NEG) MG/DL Urine Ketones (NEG) MG/DL Urine Blood (NEG) Urine Nitrite (NEG) Ur Leukocyte Esterase (NEG) Urine RBC (0) /HPF Urine WBC (0-4) /HPF Ur Squamous Epith Cells /LPF Amorphous Sediment /LPF Urine Bacteria /LPF RBC Casts /LPF COVID-19 (ELLEN) (Negative) COVID-19 Clin Com ECG Data ECG #1: Attestation: I personally reviewed and interpreted this ECG as follows: ECG interpretation date: 12/25/21 ECG interpretation time: 13:51 Interpretation: Rate: 113 Rhythm: afib with RVR [place]: left Normal QRS complex. ST T wave : non specific, no MIRANDA qTC: normal prior studies: no acute ischemia The study has been interpreted contemporaneously by me. . Discharge Plan Discharge Clinical Impression: Hypoxia, Elevated liver enzymes, Acidosis, lactic Fever Qualifiers: Fever type: unspecified Qualified Code(s): R50.9 - Fever, unspecified Leukocytosis Qualifiers: Leukocytosis type: unspecified Qualified Code(s): D72.829 - Elevated white blood cell count, unspecified Aspiration pneumonia Qualifiers: Aspiration pneumonia type: unspecified Laterality: right Lung location: lower lobe of lung Qualified Code(s): J69.0 - Pneumonitis due to inhalation of food and vomit Patient Disposition: Admitted As Inpatient
[2021-12-25] MEDS: Acetaminophen Supp 650 MG SUPP.RECT PR ×2 (13:57→20:42)
[2021-12-25] MEDS: Piperacillin Sodium/Tazobactam 4.5 GM in 0.9 % Sodium Chloride 100 ML IV (13:57)
[2021-12-25 14:06] LABS: Hematocrit 33.7 % (37.0-47.0); Mean Corpuscular HGB Conc 32.6 g/dl (31.0-35.0); Mean Corpuscular Hemoglobin 31.2 pg (27.0-33.0); Mean Corpuscular Volume 95.5 fL (80.0-98.0); Mean Platelet Volume 11.1 fL (9.4-12.3); Platelet Count 168 X10*3/uL (160-400); Red Blood Count 3.53 X10*6/uL (4.20-5.50); Red Cell Distribution Width 14.6 % (11.0-16.0); White Blood Count 16.8 X10*3/uL (4.8-10.8)
[2021-12-25 14:07] LABS: Venous Blood Gas Refer to POC result
[2021-12-25 14:08] LABS: VBG Base Excess -0.4 mmol/L; VBG HCO3 24 mmol/L (22-26); VBG pCO2 42 mmHg; VBG pH 7.37 (7.32-7.43); VBG pO2 58 mmHg
[2021-12-25 14:11] LABS: Ammonia 24 umol/L (13-55)
[2021-12-25 14:13] LABS: INTERNATIONAL NORM RATIO 3.1 (0.9-1.1); Prothrombin Time 36.8 SEC (10.0-13.1)
[2021-12-25 14:22] LABS: COVID-19 Test Negative (Negative); IDNOW Serial# 9DB6401D
[2021-12-25] MEDS: 0.9 % Sodium Chloride 500 ML IV ×2 (14:23→17:51)
[2021-12-25 14:24] LABS: B Type Natriuretic Peptide 310 pg/mL (<100)
[2021-12-25 14:27] LABS: Band Neutrophils Percent 17 % (3-5); Lymphocytes Absolute Manual 0.5 X10*3/uL (1.2-4.9); Lymphocytes Percent Manual 3 % (20-40); Monocytes Absolute Manual 0.2 X10*3/uL (0.1-1.2); Monocytes Percent Manual 1 % (2-11); Neutrophils Absolute Manual 16.1 X10*3/uL (2.0-8.3); Neutrophils Percent Manual 79 % (45-73)
[2021-12-25 14:29] LABS: Burr Cells 2+ (3-5) /OIF; Lactic Acid 2.5 mmol/L (0.5-2.0); Ovalocytes 1+ (5-14) /OIF; Platelet Estimate NORMAL (NORMAL); Platelet Morphology Comment NORMAL; RBC Morphology NOTED; Troponin-I High Sensitivity 184.6 ng/L (<3.5-17.0)
[2021-12-25 14:30] LABS: Toxic Vacuolation PRESENT
[2021-12-25 14:56] LABS: Appearance Urine CLOUDY; Color Urine ORANGE; Glucose Urine UA 250 MG/DL (NEG); PH 5.5 (5.0-8.0); Specific Gravity - Urine 1.025 (1.005-1.025); Urine Blood 3+ (NEG); Urine Ketones 5 MG/DL (NEG); Urine Protein 2+ MG/DL (NEG-TRACE)
[2021-12-25 14:58] LABS: UACC Culture Trigger NO
[2021-12-25 15:08] LABS: Amorphous Sediment Urine 3+ /LPF; Bacteria Urine 4+ /LPF
[2021-12-25 15:09] LABS: Squamous Epithelial Cell Urine 1+ /LPF
--- NOTE | 2021-12-25 15:13 | PHA.MEDREC ---
Pharmacy Consult ? Medication Reconciliation Pharmacy has completed the medication reconciliation. Pt had list from SNF
[2021-12-25 15:15] LABS: RBC Urine 0-2 /HPF (0)
[2021-12-25 15:22] LABS: Alanine Aminotransferase 186 U/L (0-31); Albumin Level 3.1 g/dL (3.5-5.0); Alkaline Phosphatase 210 U/L (39-117); Anion Gap 15 (12-20); Aspartate Amino Transferase 127 U/L (5-31); Bilirubin Direct 2.1 mg/dL (0.0-0.5); Bilirubin Total 2.7 mg/dL (0.0-1.0); Blood Urea Nitrogen 44 mg/dL (9-16); Calcium 7.7 mg/dL (8.4-10.2); Carbon Dioxide 25 mmol/L (22-29); Chloride 107 mmol/L (96-108); Estimated Glomerular Filt Rate 33; Glucose Random 167 mg/dL (60-115); Magnesium 1.5 mg/dL (1.6-2.6); Potassium 3.9 mmol/L (3.3-5.1); Sodium 143 mmol/L (135-145); Total Protein 6.4 g/dL (6.5-8.0)
[2021-12-25 16:01] LABS: Reflex Lactate? Lactic Acid Added
[2021-12-25 16:46] LABS: ~Lactic Acid-LAB USE ONLY 1.6 mmol/L (0.5-2.0)
--- NOTE | 2021-12-25 20:08 | PHA.PROG ---
Admission Date/Time: December 25, 2021 19:40 Indication: Possible cholecystitis Weight in k.6 kg Adjusted body weight in K.9 KG Welcome body weight in K.9 KG Obesity Dosing Indication % IBW: 129% Serum Creatinine - Last 168 Hours 12/25/21 14:46 Creatinine 1.52 H Estimated CrCl and GFR - Last 168 Hours 12/25/21 14:46 Estim Creat Clear Calc 36.0 Estimated GFR 33 Vancomycin Loading Dose:1750 mg (21 mg/kg) Current Vancomycin Dosing Regimen: 750 mg Q24H Date and Time for next Vancomycin Level to be drawn: 12/27 @ 1900 Pharmacist Comments on Vancomycin Plan: Patient is elderly, obese and as ANABELL. Vancomycin level may be upredicatable therefore it must be carefully monitored. Since patient has SCR of 1.52 and baseline from last visit was 0.5 so we will not give a full loading dose of 25 mg/kg. Loading dose vancomycin 1750 mg (21mg/kg) is schedule to be given in the ED 12/25 @ 2100. Maintenance dose vancomycin 750 mg Q24H will begin 12/26 @ 2100. Expected AUC 519 with a trough of 16.5. Random level after two dose will be drawn to access for safety. If patient's renal function continues to decline tomorrow, a random level may need to be drawn earlier. Pharmacy to monitor renal function daily Linnette Mejia PharmD Vancomycin dosing will take advantage of [employer] as a clinical decision support tool that uses Bayesian modeling to calculate individual patient's pharmacokinetic parameters and forecast the patient's drug concentration time course with the target goal AUC 24 range of 400 - 600 mg/L/hr.
[2021-12-25] MEDS: Piperacillin Sodium/Tazobactam 2.25 GM in 0.9 % Sodium Chloride 50 ML IV (20:29)
[2021-12-25] MEDS: 0.9 % Sodium Chloride 1,000 ML 100 ML IVCONT (20:29)
--- NOTE | 2021-12-25 21:08 | PM.IMHP ---
History of Present Illness Date of Service: 12/25/21 Chief Complaint: AMS 76-year-old female with a past medical history of hypertension, hyperlipidemia, diabetes, CAD, CHF, AFib, history of DVT on Xarelto, anxiety, schizoaffective disorder, asthma, osteoarthritis, chronic back pain, detention resident, baseline nonverbal presented to the hospital with a chief complaint of altered mental status. Most of the history obtained from the records, staff. Reportedly patient was noted to be more altered than her baseline; subsequently sent to the ER for further evaluation. Review of all other systems is limited. ER course: Per ER team patient on presentation noted to have low-grade temperature, tachycardic; chest x-ray concerning for right lower lobe pneumonia suspected aspiration; patient was given IV Zosyn; on labs noted to have ANABELL; on CT scan concerning for gallbladder enlargement and on the labs noted to have elevated liver enzymes; suspected cholecystitis, discussed with Dr. Cheng who suggested HIDA scan. Admitted to the hospital for further management [facility] Medical History Afib DVT, bilateral lower limbs Hypercholesterolemia Lumbar degenerative disc disease Recurrent UTI Type 2 diabetes mellitus with hyperglycemia Family History Father Diabetes Heart disease Mother Heart disease Son Opiate addiction Surgical History History of lumpectomy of right breast History of tubal ligation Social History Household Members: Unknown / Unable to assess Household Members Other:: Brought to ER by son with whom she lives Housing: Unknown / Unable to assess Unable to assess alcohol history related to: Unknown Alcohol intake: unknown Patient Tobacco Use Status: Never used Tobacco e-Cigarette/Vaping Use: Never Used Second Hand Smoke Exposure: No Use of substances other than those prescribed or required for medical reasons: Unable to respond Advance Directives: Yes Advance Directives on File: Yes Advance Directives Date on File: 01/09/21 service: No Current occupational status: retired Cognitive needs: Yes (Electric Wheel Chair) Hearing needs: Yes (Earring Aids) Vision needs: Yes (Glasses) Meds Allergies Allergy/AdvReac Type Severity Reaction Status Date / Time sulfamethoxazole Allergy Intermediate rash face Verified 10/17/21 10:17 [From Bactrim] trimethoprim [From Bactrim] Allergy Intermediate rash face Verified 10/17/21 10:17 amoxicillin [Augmentin] Allergy Unknown Diarrhea Verified 10/17/21 10:17 clavulanic acid [Augmentin] Allergy Unknown Diarrhea Verified 10/17/21 10:17 Iodinated Contrast Media Allergy Unknown THROAT Verified 10/17/21 10:17 [IV Dye, Iodine Containing CLOSES Contrast ] UP/SWELLIN iodine [IODINE] Allergy Unknown ANAPHYLAXIS Verified 10/17/21 10:17 lisinopril [LISINOPRIL] Allergy Unknown UNKNOWN, Verified 10/17/21 10:17 cough, cough prednisone [PREDNISONE] Allergy Unknown INCREASE Verified 10/17/21 10:17 BLOOD PRESSURE quetiapine [From SEROQUEL] Allergy Unknown SWELLING Verified 10/17/21 10:17 X-ray dye Allergy Unknown Facial Verified 10/17/21 10:17 swelling/ trouble breathing apixaban [From Eliquis] AdvReac Intermediate Diarrhea Verified 10/17/21 10:17 Active Medications: Current Medications Acetaminophen (Acetaminophen 325 Mg Tablet) 650 mg PO Q6H PRN PRN Reason: Pain, Mild (Pain Scale 1-3) Acetaminophen (Acetaminophen Supp 650 Mg Supp.Rect) 650 mg AZ Q6H PRN PRN Reason: Fever Last Admin: 12/25/21 20:42 Dose: 650 mg Albuterol Sulfate (Albuterol Sulfate 90 Mcg 8 Gm Inhaler) 2 puff INHALE Q6H PRN PRN Reason: Shortness Of Breath Or Wheezing Atorvastatin Calcium (Atorvastatin Calcium 10 Mg Tablet) 10 mg PO BEDTIME DANELLE Bisacodyl (Bisacodyl 10 Mg Supp.Rect) 10 mg AZ DAILY PRN PRN Reason: Constipation Clonazepam (Clonazepam 1 Mg Tablet) 1 mg PO BID DANELLE Dextrose (Dextrose 50 % 25 Gm/50 Ml Syringe) 25 gm IVPUSH Q15M PRN; Protocol PRN Reason: per Hypoglycemia Standing Ord. Diltiazem HCl (Diltiazem Hcl Cd 180 Mg Cap.Er.24h) 180 mg PO BID DANELLE; Protocol Escitalopram Oxalate (Escitalopram Oxalate 10 Mg Tablet) 10 mg PO DAILY DANELLE Glucose (Glucose Gel 15 Gm Gel..Gram.) 15 gm PO Q15M PRN; Protocol PRN Reason: per Hypoglycemia Standing Ord. Sodium Chloride (Ns) 1,000 mls @ 100 mls/hr IVCONT .Q10H [facility] Last Admin: 12/25/21 20:29 Dose: 100 mls/hr Vancomycin HCl 750 mg/ Sodium (Chloride) 265 mls @ 270 mls/hr IV Q24H [facility] Piperacillin Sod/Tazobactam (Sod 2.25 gm/ Sodium Chloride) 50 mls @ 100 mls/hr IV Q6H [facility] Last Admin: 12/25/21 20:29 Dose: 100 mls/hr Vancomycin HCl 1,000 mg/Vancomycin HCl 750 mg/ Sodium Chloride 535 mls @ 267.5 mls/hr IV ONCE ONE Stop: 12/25/21 22:59 Insulin Human Lispro (Insulin Lispro 100 Unit/Ml 3 Ml Vial) 0 unit SUBCUT QIDACHS [facility]; Protocol Melatonin (Melatonin 3 Mg Tablet) 6 mg PO BEDTIME PRN PRN Reason: Insomnia Metoprolol Succinate (Metoprolol Succinate Er 25 Mg Tab.Er.24h) 25 mg PO DAILY [facility]; Protocol Mirtazapine (Mirtazapine 7.5 Mg Tablet) 7.5 mg PO BEDTIME [facility] Multivitamins/Vitamin C (Multivitamin Tablet) 1 tab PO DAILY [facility] Nystatin (Nystatin Cream 15 Gm Tube) 1 appl TOPICAL BID DANELLE; Protocol Pharmacy Consult (Consult Rx Perform Med Rec) 1 each MISCELLANE ONCE PRN PRN Reason: Consult order Pharmacy Consult (Consult Rx Vancomycin Dosing) 1 each MISCELLANE DAILY PRN PRN Reason: Consult order Pregabalin (Pregabalin 100 Mg Capsule) 100 mg PO TID [facility] Rivaroxaban (Rivaroxaban 20 Mg Tablet) 20 mg PO DAILY [facility] Senna (Sennosides 8.6 Mg Tablet) 17.2 mg PO BEDTIME PRN PRN Reason: Constipation Senna (Sennosides 8.6 Mg Tablet) 17.2 mg PO DAILY PRN PRN Reason: Constipation Sodium Chloride (0.9 % Sodium Chloride Flush 3 Ml Syringe) 3 ml IVFLUSH QSHIFT [facility] Trazodone HCl (Trazodone Hcl 50 Mg Tablet) 50 mg PO BEDTIME [facility] Home Medications Medication Instructions Recorded Confirmed Last Taken Type albuterol sulfate 90 mcg/actuation 2 puff inhalation Q6H PRN 06/18/20 12/25/2110/17/22 History aerosol inhaler Shortness Of Breath Or Wheezing Lactobacil.acidophilus-Bifido.animalis 1 cap PO BID 10/17/21 12/25/21 12/24/21 History 5 billion cell sprinkle capsule (Probiotic) acetaminophen 325 mg tablet 650 mg PO Q4H PRN Fever Or Pain 10/17/21 12/25/21 12/24/21 History bisacodyl 10 mg rectal suppository 10 mg AZ DAILY PRN Constipation 10/17/21 12/25/21 Unknown History loperamide 2 mg tablet 2 mg PO Q6H PRN Loose Stool 10/17/21 12/25/21 10/26/21 History metoprolol succinate 25 mg 25 mg PO DAILY 10/17/21 12/25/21 12/24/21 History tablet,extended release 24 hr multivitamin with minerals 1 tab PO DAILY 10/17/21 12/25/21 12/24/21 History sennosides 8.6 mg tablet (senna) 17.2 mg PO DAILY PRN Constipation 10/17/21 12/25/21 Unknown History trazodone 50 mg tablet 50 mg PO BEDTIME 10/17/21 12/25/21 12/24/21 History furosemide 20 mg tablet 1 tab PO DAILY 12/25/21 12/25/21 12/24/21 History insulin glargine 100 unit/mL (3 20 unit subcut DAILY 12/25/21 12/25/21 12/24/21 History mL) subcutaneous pen (Lantus Solostar U-100 Insulin) menthol 4 % topical gel (Biofreeze 1 appl topical BID 12/25/21 12/25/21 12/25/21 History (menthol)) mirtazapine 7.5 mg tablet 7.5 mg PO BEDTIME 12/25/21 12/25/21 12/24/21 History nystatin 100,000 unit/gram topical 1 appl topical BID 12/25/21 12/25/21 12/25/21 History cream potassium chloride 10 mEq 1 cap PO DAILY 12/25/21 12/25/21 12/22/21 History capsule,extended release potassium chloride 20 mEq 1 tab PO BID 12/25/21 12/25/21 12/25/21 History tablet,extended release(part/cryst) rivaroxaban 20 mg tablet (Xarelto) 1 tab PO DAILY 12/25/21 12/25/21 12/24/21 History Physical Exam Vital Signs and Narrative: Vital Signs: Last Vital Signs Temp 101 F H 12/25/21 20:32 Pulse 125 H 12/25/21 20:24 Resp 34 H 12/25/21 20:24 BP 99/51 L 12/25/21 20:24 Pulse Ox 99 12/25/21 20:24 O2 Del Method 12/25/21 20:24 O2 Flow Rate 4 12/25/21 19:08 Oxygen Flow Rate 4 12/25/21 13:05 BMI result Body Mass Index 27.6 Gen: Appears be in no acute distress HEENT: NCAT, Moist mucosa. Pulmonary: Vesicular breath sounds, fair air entry CVS: Normal S1-S2 Abdomen: BS+, Soft, Nontender Extremities: Warm well perfused Neuro: Alert and awake. Does not follow commands. No decubitus ulcers noted, examined along with RN at bedside. Results Labs CBC and Chem 7: 12/25/21 13:55 12/25/21 14:46 Labs: Laboratory Results - last 24 hr 12/25/21 12/25/21 12/25/21 13:55 13:55 13:55 MCV 95.5 MCH 31.2 MCHC 32.6 RDW 14.6 Plt Count 168 D MPV 11.1 Immature Gran % (Auto) Cancelled Neut % (Auto) Cancelled Lymph % (Auto) Cancelled Sevier % (Auto) Cancelled Eos % (Auto) Cancelled Baso % (Auto) Cancelled Lymph # (Auto) Cancelled Sevier # (Auto) Cancelled Eos # (Auto) Cancelled Baso # (Auto) Cancelled Abs Immat Gran (auto) Cancelled Absolute Neuts (auto) Cancelled Absolute Nucleated RBC 0.000 Nucleated RBC % (auto) 0.0 Neutrophils % (Manual) 79 H Band Neutrophils % 17 H Lymphocytes % (Manual) 3 L Monocytes % (Manual) 1 L Abs Neuts (Manual) 16.1 H Lymphocytes # (Manual) 0.5 L Monocytes # (Manual) 0.2 Toxic Vacuolation PRESENT Platelet Estimate NORMAL Plt Morphology Comment NORMAL RBC Morphology NOTED Ovalocytes 1+ (5-14) Lisette Cells 2+ (3-5) PT INR VBG pH VBG pCO2 VBG pO2 VBG HCO3 VBG O2 Saturation VBG Base Excess Anion Gap Estim Creat Clear Calc Estimated GFR Random Glucose Lactic Acid Lactic Acid F/U @ 2Hr Calcium Magnesium Total Bilirubin Direct Bilirubin AST ALT Alkaline Phosphatase Ammonia 24 Troponin I High Sens B-Natriuretic Peptide 310 H Total Protein Albumin Urine Color Urine Appearance Urine pH Ur Specific [place] Urine Protein Urine Glucose (UA) Urine Ketones Urine Blood Urine Nitrite Ur Leukocyte Esterase Urine RBC Urine WBC Ur Squamous Epith Cells Amorphous Sediment Urine Bacteria RBC Casts COVID-19 (ELLEN) COVID-19 Apprion 12/25/21 12/25/21 12/25/21 13:55 13:55 13:55 MCV MCH MCHC RDW Plt Count MPV Immature Gran % (Auto) Neut % (Auto) Lymph % (Auto) Sevier % (Auto) Eos % (Auto) Baso % (Auto) Lymph # (Auto) Sevier # (Auto) Eos # (Auto) Baso # (Auto) Abs Immat Gran (auto) Absolute Neuts (auto) Absolute Nucleated RBC Nucleated RBC % (auto) Neutrophils % (Manual) Band Neutrophils % Lymphocytes % (Manual) Monocytes % (Manual) Abs Neuts (Manual) Lymphocytes # (Manual) Monocytes # (Manual) Toxic Vacuolation Platelet Estimate Plt Morphology Comment RBC Morphology Ovalocytes Lisette Cells PT 36.8 H INR 3.1 H VBG pH VBG pCO2 VBG pO2 VBG HCO3 VBG O2 Saturation VBG Base Excess Anion Gap Estim Creat Clear Calc Estimated GFR Random Glucose Lactic Acid 2.5 H* Lactic Acid F/U @ 2Hr Calcium Magnesium Total Bilirubin Direct Bilirubin AST ALT Alkaline Phosphatase Ammonia Troponin I High Sens 184.6 H* B-Natriuretic Peptide Total Protein Albumin Urine Color Urine Appearance Urine pH Ur Specific [place] Urine Protein Urine Glucose (UA) Urine Ketones Urine Blood Urine Nitrite Ur Leukocyte Esterase Urine RBC Urine WBC Ur Squamous Epith Cells Amorphous Sediment Urine Bacteria RBC Casts COVID-19 (ELLEN) COVID-19 Apprion 12/25/21 12/25/21 12/25/21 13:55 14:03 14:35 MCV MCH MCHC RDW Plt Count MPV Immature Gran % (Auto) Neut % (Auto) Lymph % (Auto) Sevier % (Auto) Eos % (Auto) Baso % (Auto) Lymph # (Auto) Sevier # (Auto) Eos # (Auto) Baso # (Auto) Abs Immat Gran (auto) Absolute Neuts (auto) Absolute Nucleated RBC Nucleated RBC % (auto) Neutrophils % (Manual) Band Neutrophils % Lymphocytes % (Manual) Monocytes % (Manual) Abs Neuts (Manual) Lymphocytes # (Manual) Monocytes # (Manual) Toxic Vacuolation Platelet Estimate Plt Morphology Comment RBC Morphology Ovalocytes Lisette Cells PT INR VBG pH 7.37 VBG pCO2 42 VBG pO2 58 VBG HCO3 24 VBG O2 Saturation 85.0 VBG Base Excess -0.4 Anion Gap Estim Creat Clear Calc Estimated GFR Random Glucose Lactic Acid Lactic Acid F/U @ 2Hr Calcium Magnesium Total Bilirubin Direct Bilirubin AST ALT Alkaline Phosphatase Ammonia Troponin I High Sens B-Natriuretic Peptide Total Protein Albumin Urine Color ORANGE A Urine Appearance CLOUDY Urine pH 5.5 Ur Specific [place] 1.025 Urine Protein 2+ H Urine Glucose (UA) 250 H Urine Ketones 5 Urine Blood 3+ H Urine Nitrite SEE NOTE Ur Leukocyte Esterase SEE NOTE Urine RBC 0-2 Urine WBC 1-4 Ur Squamous Epith Cells 1+ Amorphous Sediment 3+ Urine Bacteria 4+ RBC Casts 5-9 COVID-19 (ELLEN) Negative COVID-19 Clin Com See Note 12/25/21 12/25/21 14:46 16:32 MCV MCH MCHC RDW Plt Count MPV Immature Gran % (Auto) Neut % (Auto) Lymph % (Auto) Sevier % (Auto) Eos % (Auto) Baso % (Auto) Lymph # (Auto) Sevier # (Auto) Eos # (Auto) Baso # (Auto) Abs Immat Gran (auto) Absolute Neuts (auto) Absolute Nucleated RBC Nucleated RBC % (auto) Neutrophils % (Manual) Band Neutrophils % Lymphocytes % (Manual) Monocytes % (Manual) Abs Neuts (Manual) Lymphocytes # (Manual) Monocytes # (Manual) Toxic Vacuolation Platelet Estimate Plt Morphology Comment RBC Morphology Ovalocytes Kellogg Cells PT INR VBG pH VBG pCO2 VBG pO2 VBG HCO3 VBG O2 Saturation VBG Base Excess Anion Gap 15 Estim Creat Clear Calc 36.0 Estimated GFR 33 Random Glucose 167 H Lactic Acid Lactic Acid F/U @ 2Hr 1.6 Calcium 7.7 L D Magnesium 1.5 L Total Bilirubin 2.7 H Direct Bilirubin 2.1 H AST 127 H ALT 186 H Alkaline Phosphatase 210 H D Ammonia Troponin I High Sens B-Natriuretic Peptide Total Protein 6.4 L Albumin 3.1 L Urine Color Urine Appearance Urine pH Ur Specific [place] Urine Protein Urine Glucose (UA) Urine Ketones Urine Blood Urine Nitrite Ur Leukocyte Esterase Urine RBC Urine WBC Ur Squamous Epith Cells Amorphous Sediment Urine Bacteria RBC Casts COVID-19 (ELLEN) COVID-19 Clin Com Imaging Radiologist's Impressions: Impressions Chest X-Ray 12/25/21 14:17 IMPRESSION: No acute cardiopulmonary process. This represents interval improvement from the previous study. Abdomen/Pelvis CT 12/25/21 16:37 IMPRESSION: -Study limitations, respiratory motion artifact, streak artifact from arms. -Dilated gallbladder with gallstones and probable extrahepatic ductal dilatation. No visible ductal calculus. Hepatomegaly. Recommend further evaluation with right upper quadrant ultrasound. -Infiltrate right lung base with small effusion. -Smooth nonspecific thickening left bladder wall. This may be further assessed with nonemergent cystoscopy. No hydronephrosis or calculi. -No bowel obstruction or focal inflammatory changes in bowel or mesentery. Abdomen Ultrasound 12/25/21 17:56 IMPRESSION: Gallbladder is abnormal. It has a mildly thickened wall and contains sludge and calculi. Small volume of pericholecystic fluid is present. Although these imaging findings suggest possibility of cholecystitis, there is no reported pain over the gallbladder. Pain would typically be expected in the setting of acute cholecystitis. Note that the imaging findings can be nonspecific and may be observed in patients with hepatitis, congestive failure or sepsis. Assessment and Plan (1) Hypoxia: Status: Acute (2) Fever: Qualifiers: Fever type: unspecified Qualified Code(s): R50.9 - Fever, unspecified Status: Acute Plan 71-year-old female with a past medical history of hypertension, hyperlipidemia, diabetes, CAD, CHF, AFib, anxiety, depression, schizoaffective disorder, history of bilateral lower extremity DVT, asthma, osteoarthritis, dorsalgia, detention resident, nonverbal at baseline; presented to the hospital with a chief complaint of altered mental status. Noted to have following Altered mental status: Likely toxic metabolic encephalopathy. Supportive care. Sepsis: GNR Bacteremia: Also concern for question cholecystitis. General surgery aware of the patient-recommended HIDA scan as CT scan is inconclusive. Patient empirically covered with IV vancomycin and Zosyn. Follow-up cultures Right lower lobe pneumonia: Suspected aspiration. Continue IV vancomycin and Zosyn. NPO. Speech and swallow eval. Aspiration precautions. Hypoxia: Likely in the setting of pneumonia. Patient on supplemental oxygen. Not in distress currently. Low suspicion for PE as patient is already on Xarelto. DuoNebs p.r.n. Transaminitis: Likely in setting of sepsis. Will obtain acquired hepatitis panel. Follow-up the enzymes. AFib with RVR: Patient on diltiazem, metoprolol, rivaroxaban. Will continue. Continue p.o. medications unable to tolerate. Will give the patient on metoprolol IV q.4h p.r.n. ANABELL: Likely prerenal. Hold home diuretics. Avoid nephrotoxins. Patient on gentle IV fluids. History of CHF: Hold home Lasix for now. Monitor for signs of fluid overload. History of diabetes: Insulin sliding scale. Monitor fingerstick glucose and adjust insulins as needed. Hold metformin. History of hypertension: Hold home amlodipine for now. Patient continued on metoprolol, diltiazem. History of anxiety/depression/schizoaffective disorder: Continue home clonazepam/mirtazapine Diet: Pending speech and swallow eval. DVT prophylaxis: Patient on Xarelto Code status: Full Code. Patient has MOLST form. Quality Stroke Does the patient have a stroke diagnosis?: No VTE Prior VTE?: No VTE Risk Level:: Medical - moderate - high VTE Device Contraindication: Treatment Not Indicated VTE Drug Contraindication: N/A - Med Ordered
[2021-12-25] MEDS: Metoprolol Tartrate 5 MG/5 ML VIAL IVPUSH (21:13)
--- NOTE | 2021-12-25 21:18 | PC.NURSE ---
Pt given metoprolol, heart rate has decreased from 150's to approx 100
[2021-12-25 21:27] LABS: Glucose, Whole Blood 161 mg/dL (60-115)
[2021-12-25] MEDS: vancomycin HCL 1,000 MG, vancomycin HCL 750 MG in 0.9 % Sodium Chloride 500 ML 267.5 MG IV (21:27)
--- NOTE | 2021-12-25 21:36 | PC.NURSE ---
Pt incontinent of stool, total dependent change with three people. New purewick applied, pt did void with the purewick. Bedtime PO medications held as pt is unable to swallow, swallow test failed. MD Zhong notified.
--- NOTE | 2021-12-25 22:51 | PC.NURSE ---
pt H.S insulin held. POC was 161. pt is MD AUNG notified and order was given to hold insulin.
--- NOTE | 2021-12-25 23:30 | PC.NURSE ---
pt noted to have a reddened area at IV site after vanco infusion. redness is blanchable and localized. MD notified. will continue to monitor
--- NOTE | 2021-12-25 23:51 | PC.NURSE ---
pt coccyx has no s/sx of incontinence related dermatitis or open wounds. coccyx is semiblanchable r/t positioning. pt repositioned to Left side
[2021-12-26] VITALS (11 sets, daily range): BP systolic 105–152; BP diastolic 59–80; PULSE 99–138; RESP 16–33; TEMP 36.2; O2SAT 96–100
--- NOTE | 2021-12-26 01:00 | PC.NURSE ---
localized reaction at IV site has resolved. pt is in no distress, sleeping in bed
[2021-12-26] MEDS: Piperacillin Sodium/Tazobactam 2.25 GM in 0.9 % Sodium Chloride 50 ML IV ×4 (01:47→20:52)
[2021-12-26] MEDS: Metoprolol Tartrate 5 MG/5 ML VIAL IVPUSH ×3 (04:55→19:06)
--- NOTE | 2021-12-26 04:55 | PC.NURSE ---
pt noted to be incontinent of urine, and stool. incont care given by 2 RNs, pt became and sustained tachycardia from 125-155. PRN , metoprolol given. No further adverse rxn at IV site
[2021-12-26 06:54] LABS: Glucose, Whole Blood 130 mg/dL (60-115)
[2021-12-26 07:38] LABS: Anion Gap 13 (12-20); Blood Urea Nitrogen 37 mg/dL (9-16); Calcium 7.3 mg/dL (8.4-10.2); Carbon Dioxide 24 mmol/L (22-29); Chloride 113 mmol/L (96-108); Creatinine Clr Calc Pharmacy 46.8; Estimated Glomerular Filt Rate 45; Glucose Random 144 mg/dL (60-115); Hematocrit 30.6 % (37.0-47.0); Hemoglobin 9.7 g/dl (12.0-16.0); Mean Corpuscular HGB Conc 31.7 g/dl (31.0-35.0); Mean Corpuscular Hemoglobin 30.9 pg (27.0-33.0); Mean Corpuscular Volume 97.5 fL (80.0-98.0); Mean Platelet Volume 11.9 fL (9.4-12.3); Platelet Count 123 X10*3/uL (160-400); Potassium 3.6 mmol/L (3.3-5.1); Red Blood Count 3.14 X10*6/uL (4.20-5.50); Red Cell Distribution Width 14.6 % (11.0-16.0); Sodium 146 mmol/L (135-145); White Blood Count 9.3 X10*3/uL (4.8-10.8)
[2021-12-26 08:03] LABS: Lymphocytes Absolute Manual 0.4 X10*3/uL (1.2-4.9); Lymphocytes Percent Manual 4 % (20-40); Neutrophils Percent Manual 96 % (45-73)
[2021-12-26 08:04] LABS: Band Neutrophils Percent 0 % (3-5); Large Platelet PRESENT; Neutrophils Absolute Manual 8.9 X10*3/uL (2.0-8.3); Ovalocytes 1+ (5-14) /OIF; Platelet Estimate SLIGHTLY DECREASED (NORMAL); Platelet Morphology Comment NOTED; RBC Morphology NOTED
--- NOTE | 2021-12-26 10:07 | HE.PHANOTE ---
MULU [facility] CONTINUE CURRENT DOSE, NEXT TROUGH DUE 12/27 @1900
--- NOTE | 2021-12-26 10:09 | MHC.CM.PN ---
Attempted to meet with patient in regards to discharge planning. Patient currently sleeping. Spoke with patient's son/HCP, Yakov, via telephone at [phone]. Yakov confirms patient is still at [facility] and anticipates patient will return via BLS when medically stable. HCP verified to be on file. Patient received 1 J&J vaccine and a Moderna booster. IMM explained and left bedside. Continue to monitor for d/c needs.
--- NOTE | 2021-12-26 11:36 | P.CONGS_ITS ---
History of Present Illness Consult details Consult date: 12/26/21 Requesting physician: Ander Mooney Narrative: 76-year-old female patient presenting to the emergency department from a longterm with reports of altered mental status. As a baseline she is nonverbal and has a history of hypertension, hyperlipidemia, diabetes mellitus, coronary artery disease, congestive heart failure, atrial fibrillation, DVT, on Xarelto. Upon presentation to the emergency department her abdomen was noted to be soft with no grimacing with deep palpation. Laboratories revealed WBC of 16.8. Subsequent CT abdomen and pelvis as well as ultrasound of the abdomen revealed gallstones within the gallbladder with the possibility of some wall thickening. This was felt to be possibly due to cholecystitis although the test were not definitive. There is also evidence of right lower lobe pneumonia on CT suggestive of aspiration pneumonia. Patient subsequently admitted to the hospitalist service for IV antibiotics. Surgical consultation is requested for management of gallstones. Review of Systems Review of Systems: Yes Unobtainable due to mental status Neurologic: Reports confusion Psychiatric: Psychiatric: Reports confusion PMFSH Past Medical History Medical History Afib DVT, bilateral lower limbs Hypercholesterolemia Lumbar degenerative disc disease Recurrent UTI Type 2 diabetes mellitus with hyperglycemia Family History Family History Father Diabetes Heart disease Mother Heart disease Son Opiate addiction Surgical History Surgical History History of lumpectomy of right breast History of tubal ligation Social History Social History Household Members: Unknown / Unable to assess Household Members Other:: Brought to ER by son with whom she lives Housing: Unknown / Unable to assess Unable to assess alcohol history related to: Unknown Alcohol intake: unknown Patient Tobacco Use Status: Never used Tobacco e-Cigarette/Vaping Use: Never Used Second Hand Smoke Exposure: No Use of substances other than those prescribed or required for medical reasons: Unable to respond Advance Directives: Yes Advance Directives on File: Yes Advance Directives Date on File: 01/09/21 service: No Current occupational status: retired Cognitive needs: Yes (Electric Wheel Chair) Hearing needs: Yes (Earring Aids) Vision needs: Yes (Glasses) Meds Allergies Allergy/AdvReac Type Severity Reaction Status Date / Time sulfamethoxazole Allergy Intermediate rash face Verified 10/17/21 10:17 [From Bactrim] trimethoprim [From Bactrim] Allergy Intermediate rash face Verified 10/17/21 10:17 amoxicillin [Augmentin] Allergy Unknown Diarrhea Verified 10/17/21 10:17 clavulanic acid [Augmentin] Allergy Unknown Diarrhea Verified 10/17/21 10:17 Iodinated Contrast Media Allergy Unknown THROAT Verified 10/17/21 10:17 [IV Dye, Iodine Containing CLOSES Contrast ] UP/SWELLIN iodine [IODINE] Allergy Unknown ANAPHYLAXIS Verified 10/17/21 10:17 lisinopril [LISINOPRIL] Allergy Unknown UNKNOWN, Verified 10/17/21 10:17 cough, cough prednisone [PREDNISONE] Allergy Unknown INCREASE Verified 10/17/21 10:17 BLOOD PRESSURE quetiapine [From SEROQUEL] Allergy Unknown SWELLING Verified 10/17/21 10:17 X-ray dye Allergy Unknown Facial Verified 10/17/21 10:17 swelling/ trouble breathing apixaban [From Eliquis] AdvReac Intermediate Diarrhea Verified 10/17/21 10:17 Active Medications: Current Medications Acetaminophen (Acetaminophen 325 Mg Tablet) 650 mg PO Q6H PRN PRN Reason: Pain, Mild (Pain Scale 1-3) Acetaminophen (Acetaminophen Supp 650 Mg Supp.Rect) 650 mg AK Q6H PRN PRN Reason: Fever Last Admin: 12/25/21 20:42 Dose: 650 mg Albuterol Sulfate (Albuterol Sulfate 90 Mcg 8 Gm Inhaler) 2 puff INHALE Q6H PRN PRN Reason: Shortness Of Breath Or Wheezing Atorvastatin Calcium (Atorvastatin Calcium 10 Mg Tablet) 10 mg PO BEDTIME [facility] Last Admin: 12/25/21 21:35 Dose: Not Given Bisacodyl (Bisacodyl 10 Mg Supp.Rect) 10 mg AK DAILY PRN PRN Reason: Constipation Clonazepam (Clonazepam 1 Mg Tablet) 1 mg PO BID [facility] Last Admin: 12/26/21 10:05 Dose: Not Given Dextrose (Dextrose 50 % 25 Gm/50 Ml Syringe) 25 gm IVPUSH Q15M PRN; Protocol PRN Reason: per Hypoglycemia Standing Ord. Diltiazem HCl (Diltiazem Hcl Cd 180 Mg Cap.Er.24h) 180 mg PO BID [facility]; Protocol Last Admin: 12/26/21 10:05 Dose: Not Given Escitalopram Oxalate (Escitalopram Oxalate 10 Mg Tablet) 10 mg PO DAILY [facility] Last Admin: 12/26/21 10:05 Dose: Not Given Glucose (Glucose Gel 15 Gm Gel..Gram.) 15 gm PO Q15M PRN; Protocol PRN Reason: per Hypoglycemia Standing Ord. Sodium Chloride (Ns) 1,000 mls @ 50 mls/hr IVCONT .Q20H [facility] Last Infusion: 12/25/21 21:22 Dose: 50 mls/hr Vancomycin HCl 750 mg/ Sodium (Chloride) 265 mls @ 270 mls/hr IV Q24H [facility] Piperacillin Sod/Tazobactam (Sod 2.25 gm/ Sodium Chloride) 50 mls @ 100 mls/hr IV Q6H [facility] Last Infusion: 12/26/21 08:31 Dose: Infused Insulin Human Lispro (Insulin Lispro 100 Unit/Ml 3 Ml Vial) 0 unit SUBCUT QIDACHS [facility]; Protocol Last Admin: 12/26/21 07:08 Dose: Not Given Melatonin (Melatonin 3 Mg Tablet) 6 mg PO BEDTIME PRN PRN Reason: Insomnia Metoprolol Succinate (Metoprolol Succinate Er 25 Mg Tab.Er.24h) 25 mg PO DAILY [facility]; Protocol Last Admin: 12/26/21 10:05 Dose: Not Given Metoprolol Tartrate (Metoprolol Tartrate 5 Mg/5 Ml Vial) 5 mg IVPUSH Q4H PRN PRN Reason: HR>125 Last Admin: 12/26/21 10:33 Dose: 5 mg Mirtazapine (Mirtazapine 7.5 Mg Tablet) 7.5 mg PO BEDTIME [facility] Last Admin: 12/25/21 21:35 Dose: Not Given Multivitamins/Vitamin C (Multivitamin Tablet) 1 tab PO DAILY [facility] Last Admin: 12/26/21 10:05 Dose: Not Given Nystatin (Nystatin Cream 15 Gm Tube) 1 appl TOPICAL BID [facility]; Protocol Last Admin: 12/26/21 10:12 Dose: Not Given Pharmacy Consult (Consult Rx Perform Med Rec) 1 each MISCELLANE ONCE PRN PRN Reason: Consult order Pharmacy Consult (Consult Rx Vancomycin Dosing) 1 each MISCELLANE DAILY PRN PRN Reason: Consult order Pregabalin (Pregabalin 100 Mg Capsule) 100 mg PO TID [facility] Last Admin: 12/26/21 10:05 Dose: Not Given Rivaroxaban (Rivaroxaban 20 Mg Tablet) 20 mg PO DAILY [facility] Last Admin: 12/26/21 10:05 Dose: Not Given Senna (Sennosides 8.6 Mg Tablet) 17.2 mg PO BEDTIME PRN PRN Reason: Constipation Senna (Sennosides 8.6 Mg Tablet) 17.2 mg PO DAILY PRN PRN Reason: Constipation Sodium Chloride (0.9 % Sodium Chloride Flush 3 Ml Syringe) 3 ml IVFLUSH QSHIFT [facility] Last Admin: 12/26/21 09:02 Dose: Not Given Trazodone HCl (Trazodone Hcl 50 Mg Tablet) 50 mg PO BEDTIME [facility] Last Admin: 12/25/21 21:35 Dose: Not Given Home Medications Medication Instructions Recorded Confirmed Last Taken Type albuterol sulfate 90 mcg/actuation 2 puff inhalation Q6H PRN 06/18/20 12/25/21 10/17/21 History aerosol inhaler Shortness Of Breath Or Wheezing Lactobacil.acidophilus-Bifido.animalis 1 cap PO BID 10/17/21 12/25/21 12/24/21 History 5 billion cell sprinkle capsule (Probiotic) acetaminophen 325 mg tablet 650 mg PO Q4H PRN Fever Or Pain 10/17/21 12/25/21 12/24/21 History bisacodyl 10 mg rectal suppository 10 mg AK DAILY PRN Constipation 10/17/21 12/25/21 Unknown History loperamide 2 mg tablet 2 mg PO Q6H PRN Loose Stool 10/17/21 12/25/21 10/26/21 History metoprolol succinate 25 mg 25 mg PO DAILY 10/17/21 12/25/21 12/24/21 History tablet,extended release 24 hr multivitamin with minerals 1 tab PO DAILY 10/17/21 12/25/21 12/24/21 History sennosides 8.6 mg tablet (senna) 17.2 mg PO DAILY PRN Constipation 10/17/21 12/25/21 Unknown History trazodone 50 mg tablet 50 mg PO BEDTIME 10/17/21 12/25/21 12/24/21 History furosemide 20 mg tablet 1 tab PO DAILY 12/25/21 12/25/21 12/24/21 History insulin glargine 100 unit/mL (3 20 unit subcut DAILY 12/25/21 12/25/21 12/24/21 History mL) subcutaneous pen (Lantus Solostar U-100 Insulin) menthol 4 % topical gel (Biofreeze 1 appl topical BID 12/25/21 12/25/21 12/25/21 History (menthol)) mirtazapine 7.5 mg tablet 7.5 mg PO BEDTIME 12/25/21 12/25/21 12/24/21 History nystatin 100,000 unit/gram topical 1 appl topical BID 12/25/21 12/25/21 12/25/21 History cream potassium chloride 10 mEq 1 cap PO DAILY 12/25/21 12/25/21 12/22/21 History capsule,extended release potassium chloride 20 mEq 1 tab PO BID 12/25/21 12/25/21 12/25/21 History tablet,extended release(part/cryst) rivaroxaban 20 mg tablet (Xarelto) 1 tab PO DAILY 12/25/21 12/25/21 12/24/21 History Physical Exam Vital Signs: Vital Signs: Last Vital Signs Temp 97.2 F 12/26/21 04:24 Pulse 133 H 12/26/21 10:29 Resp 22 H 12/26/21 10:29 BP 152/80 H 12/26/21 10:29 Pulse Ox 96 12/26/21 10:29 O2 Del Method 12/26/21 10:29 O2 Flow Rate 3 12/26/21 10:29 Oxygen Flow Rate 4 12/25/21 13:05 BMI result Body Mass Index 27.6 Const: General: anxious and confusion Nutritional Appearance: well nourished Orientation/consciousness: confusion Eyes: Sclerae: sclerae normal Resp: Effort & Inspection: normal respiratory effort, no audible wheezes, no cough and no respiratory distress GI: Inspection: Yes normal to inspection Palpation (GI): Soft to palpation, nontender, no guarding and not rigid Percussion: Yes normal to percussion Auscultation: normal bowel sounds Rectal Exam - Female: deferred Skin: Other: Warm, dry, no rash Neuro: General: confusion Results Labs Result diagrams: 12/26/21 06:53 12/26/21 06:53 Labs: Abnormal lab results 12/25/21 12/25/21 12/25/21 Range/Units 13:55 13:55 13:55 WBC 16.8 H (4.8-10.8) X10*3/uL RBC 3.53 L (4.20-5.50) X10*6/uL Hgb 11.0 L (12.0-16.0) g/dl Hct 33.7 L (37.0-47.0) % Plt Count (160-400) X10*3/uL Neutrophils % (Manual) 79 H (45-73) % Band Neutrophils % 17 H (3-5) % Lymphocytes % (Manual) 3 L (20-40) % Monocytes % (Manual) 1 L (2-11) % Abs Neuts (Manual) 16.1 H (2.0-8.3) X10*3/uL Lymphocytes # (Manual) 0.5 L (1.2-4.9) X10*3/uL PT 36.8 H (10.0-13.1) SEC INR 3.1 H (0.9-1.1) Sodium (135-145) mmol/L Chloride (96-108) mmol/L BUN (9-16) mg/dL Creatinine (0.5-1.4) mg/dL POC Glucose (60-115) mg/dL Random Glucose (60-115) mg/dL Lactic Acid (0.5-2.0) mmol/L Calcium (8.4-10.2) mg/dL Magnesium (1.6-2.6) mg/dL Total Bilirubin (0.0-1.0) mg/dL Direct Bilirubin (0.0-0.5) mg/dL AST (5-31) U/L ALT (0-31) U/L Alkaline Phosphatase (39-117) U/L Troponin I High Sens (<3.5-17.0) ng/L B-Natriuretic Peptide 310 H (<100) pg/mL Total Protein (6.5-8.0) g/dL Albumin (3.5-5.0) g/dL Urine Color Urine Protein (NEG-TRACE) MG/DL Urine Glucose (UA) (NEG) MG/DL Urine Blood (NEG) 12/25/21 12/25/2112/25/22 Range/Units 13:55 13:55 14:35 WBC (4.8-10.8) X10*3/uL RBC (4.20-5.50) X10*6/uL Hgb (12.0-16.0) g/dl Hct (37.0-47.0) % Plt Count (160-400) X10*3/uL Neutrophils % (Manual) (45-73) % Band Neutrophils % (3-5) % Lymphocytes % (Manual) (20-40) % Monocytes % (Manual) (2-11) % Abs Neuts (Manual) (2.0-8.3) X10*3/uL Lymphocytes # (Manual) (1.2-4.9) X10*3/uL PT (10.0-13.1) SEC INR (0.9-1.1) Sodium (135-145) mmol/L Chloride (96-108) mmol/L BUN (9-16) mg/dL Creatinine (0.5-1.4) mg/dL POC Glucose (60-115) mg/dL Random Glucose (60-115) mg/dL Lactic Acid 2.5 H* (0.5-2.0) mmol/L Calcium (8.4-10.2) mg/dL Magnesium (1.6-2.6) mg/dL Total Bilirubin (0.0-1.0) mg/dL Direct Bilirubin (0.0-0.5) mg/dL AST (5-31) U/L ALT (0-31) U/L Alkaline Phosphatase (39-117) U/L Troponin I High Sens 184.6 H* (<3.5-17.0) ng/L B-Natriuretic Peptide (<100) pg/mL Total Protein (6.5-8.0) g/dL Albumin (3.5-5.0) g/dL Urine Color ORANGE A Urine Protein 2+ H (NEG-TRACE) MG/DL Urine Glucose (UA) 250 H (NEG) MG/DL Urine Blood 3+ H (NEG) 12/25/21 12/25/21 12/26/21 Range/Units 14:46 21:22 06:49 WBC (4.8-10.8) X10*3/uL RBC (4.20-5.50) X10*6/uL Hgb (12.0-16.0) g/dl Hct (37.0-47.0) % Plt Count (160-400) X10*3/uL Neutrophils % (Manual) (45-73) % Band Neutrophils % (3-5) % Lymphocytes % (Manual) (20-40) % Monocytes % (Manual) (2-11) % Abs Neuts (Manual) (2.0-8.3) X10*3/uL Lymphocytes # (Manual) (1.2-4.9) X10*3/uL PT (10.0-13.1) SEC INR (0.9-1.1) Sodium (135-145) mmol/L Chloride (96-108) mmol/L BUN 44 H D (9-16) mg/dL Creatinine 1.52 H (0.5-1.4) mg/dL POC Glucose 161 H 130 H (60-115) mg/dL Random Glucose 167 H (60-115) mg/dL Lactic Acid (0.5-2.0) mmol/L Calcium 7.7 L D (8.4-10.2) mg/dL Magnesium 1.5 L (1.6-2.6) mg/dL Total Bilirubin 2.7 H (0.0-1.0) mg/dL Direct Bilirubin 2.1 H (0.0-0.5) mg/dL AST 127 H (5-31) U/L ALT 186 H (0-31) U/L Alkaline Phosphatase 210 H D (39-117) U/L Troponin I High Sens (<3.5-17.0) ng/L B-Natriuretic Peptide (<100) pg/mL Total Protein 6.4 L (6.5-8.0) g/dL Albumin 3.1 L (3.5-5.0) g/dL Urine Color Urine Protein (NEG-TRACE) MG/DL Urine Glucose (UA) (NEG) MG/DL Urine Blood (NEG) 12/26/21 12/26/21 Range/Units 06:53 06:53 WBC (4.8-10.8) X10*3/uL RBC 3.14 L (4.20-5.50) X10*6/uL Hgb 9.7 L (12.0-16.0) g/dl Hct 30.6 L (37.0-47.0) % Plt Count 123 L D (160-400) X10*3/uL Neutrophils % (Manual) 96 H (45-73) % Band Neutrophils % 0 L (3-5) % Lymphocytes % (Manual) 4 L (20-40) % Monocytes % (Manual) (2-11) % Abs Neuts (Manual) 8.9 H (2.0-8.3) X10*3/uL Lymphocytes # (Manual) 0.4 L (1.2-4.9) X10*3/uL PT (10.0-13.1) SEC INR (0.9-1.1) Sodium 146 H (135-145) mmol/L Chloride 113 H (96-108) mmol/L BUN 37 H (9-16) mg/dL Creatinine (0.5-1.4) mg/dL POC Glucose (60-115) mg/dL Random Glucose 144 H (60-115) mg/dL Lactic Acid (0.5-2.0) mmol/L Calcium 7.3 L (8.4-10.2) mg/dL Magnesium (1.6-2.6) mg/dL Total Bilirubin (0.0-1.0) mg/dL Direct Bilirubin (0.0-0.5) mg/dL AST (5-31) U/L ALT (0-31) U/L Alkaline Phosphatase (39-117) U/L Troponin I High Sens (<3.5-17.0) ng/L B-Natriuretic Peptide (<100) pg/mL Total Protein (6.5-8.0) g/dL Albumin (3.5-5.0) g/dL Urine Color Urine Protein (NEG-TRACE) MG/DL Urine Glucose (UA) (NEG) MG/DL Urine Blood (NEG) Short CBC 12/25/21 12/26/21 Range/Units 13:55 06:53 WBC 16.8 H 9.3 (4.8-10.8) X10*3/uL Hgb 11.0 L 9.7 L (12.0-16.0) g/dl Hct 33.7 L 30.6 L (37.0-47.0) % Plt Count 168 D 123 L D (160-400) X10*3/uL BMP 12/25/21 12/26/21 14:46 06:53 Sodium 143 146 H Potassium 3.9 3.6 Chloride 107 113 H Carbon Dioxide 25 24 BUN 44 H D 37 H Creatinine 1.52 H 1.17 Calcium 7.7 L D 7.3 L Liver Function 12/25/21 Range/Units 14:46 Total Bilirubin 2.7 H (0.0-1.0) mg/dL Direct Bilirubin 2.1 H (0.0-0.5) mg/dL AST 127 H (5-31) U/L ALT 186 H (0-31) U/L Alkaline Phosphatase 210 H D (39-117) U/L Albumin 3.1 L (3.5-5.0) g/dL Urine 12/25/21 Range/Units 14:35 Urine Color ORANGE A Urine Appearance CLOUDY Urine pH 5.5 (5.0-8.0) Ur Specific Mitchell 1.025 (1.005-1.025) Urine Protein 2+ H (NEG-TRACE) MG/DL Urine Glucose (UA) 250 H (NEG) MG/DL All other labs normal. Assessment and Plan (1) Elevated liver enzymes: Status: Acute (2) Cholelithiasis: Status: Acute (3) Leukocytosis: Qualifiers: Leukocytosis type: unspecified Qualified Code(s): D72.829 - Elevated white blood cell count, unspecified Status: Acute Plan 76 year old female presenting with elevated LFTs, changes on CT and US suggestive of cholecystitis. Patient has multiple medical problems and will be high risk for surgery. Recommend evaluation with HIDA scan to evaluate for obstructed cystic duct. Will follow along during her hospitalization. Procedures Date of Service Date of Service: 12/26/21
--- NOTE | 2021-12-26 12:53 | PC.NURSE ---
Pt too altered to take AM meds this morning. Provider made aware. Pt resting in hospital bed. PRN metoprolol given for HR in the 130s. HR currently 115. Pt resting in the stretcher. Pt incontinent of stool and urine, incontinence care performed. A new purewick placed. Pt side lying left at this time. Call torres within reach. Pt weaned to 3L O2 via Nasal cannula.
--- NOTE | 2021-12-26 13:50 | P.PNIM_ITS ---
Subjective Subjective Date of Service: 12/26/21 Review of Systems Follow up aspiration pna Review of Systems: Yes Unobtainable due to mental status Physical Exam Vital Signs: Vital Signs: Last Vital Signs Temp 97.2 F 12/26/21 04:24 Pulse 113 H 12/26/21 11:48 Resp 22 H 12/26/21 10:29 BP 152/80 H 12/26/21 10:29 Pulse Ox 96 12/26/21 10:29 O2 Del Method 12/26/21 10:29 O2 Flow Rate 3 12/26/21 10:29 Oxygen Flow Rate 4 12/25/21 13:05 BMI result Body Mass Index 27.6 Appearing in no acute distress lung sounds are clear to auscultation heart regular rate rhythm, clear S1, S2 positive bowel sounds, abdomen is soft, nontender, +2 LE edema neuro patient is alert, baseline non verbal Objective Data Active Medications Acetaminophen (Acetaminophen 325 Mg Tablet) 650 mg PO Q6H PRN PRN Reason: Pain, Mild (Pain Scale 1-3) Acetaminophen (Acetaminophen Supp 650 Mg Supp.Rect) 650 mg NE Q6H PRN PRN Reason: Fever Last Admin: 12/25/21 20:42 Dose: 650 mg Documented By: AMBROSIO Albuterol Sulfate (Albuterol Sulfate 90 Mcg 8 Gm Inhaler) 2 puff INHALE Q6H PRN PRN Reason: Shortness Of Breath Or Wheezing Atorvastatin Calcium (Atorvastatin Calcium 10 Mg Tablet) 10 mg PO BEDTIME [facility] Last Admin: 12/25/21 21:35 Dose: Not Given Documented By: CUAUHTEMOC Non-Admin Reason: Patient Condition Contraindication Bisacodyl (Bisacodyl 10 Mg Supp.Rect) 10 mg NE DAILY PRN PRN Reason: Constipation Clonazepam (Clonazepam 1 Mg Tablet) 1 mg PO BID [facility] Last Admin: 12/26/21 10:05 Dose: Not Given Documented By: PRINCE Non-Admin Reason: NPO Dextrose (Dextrose 50 % 25 Gm/50 Ml Syringe) 25 gm IVPUSH Q15M PRN; Protocol PRN Reason: per Hypoglycemia Standing Ord. Diltiazem HCl (Diltiazem Hcl Cd 180 Mg Cap.Er.24h) 180 mg PO BID [facility]; Protocol Last Admin: 12/26/21 10:05 Dose: Not Given Documented By: PRINCE Non-Admin Reason: NPO Escitalopram Oxalate (Escitalopram Oxalate 10 Mg Tablet) 10 mg PO DAILY [facility] Last Admin: 12/26/21 10:05 Dose: Not Given Documented By: PRINCE Non-Cecilia Reason: NPO Glucose (Glucose Gel 15 Gm Gel..Gram.) 15 gm PO Q15M PRN; Protocol PRN Reason: per Hypoglycemia Standing Ord. Sodium Chloride (Ns) 1,000 mls @ 50 mls/hr IVCONT .Q20H [facility] Last Infusion: 12/25/21 21:22 Dose: 50 mls/hr Documented By: AMBROSIO Vancomycin HCl 750 mg/ Sodium (Chloride) 265 mls @ 270 mls/hr IV Q24H DANELLE Piperacillin Sod/Tazobactam (Sod 2.25 gm/ Sodium Chloride) 50 mls @ 100 mls/hr IV Q6H [facility] Last Infusion: 12/26/21 08:31 Dose: 0 mls/hr Documented By: PRINCE Insulin Human Lispro (Insulin Lispro 100 Unit/Ml 3 Ml Vial) 0 unit SUBCUT QIDACHS [facility]; Protocol Last Admin: 12/26/21 07:08 Dose: Not Given Documented By: PRINCE Non-Cecilia Reason: No Insulin Coverage Melatonin (Melatonin 3 Mg Tablet) 6 mg PO BEDTIME PRN PRN Reason: Insomnia Metoprolol Succinate (Metoprolol Succinate Er 25 Mg Tab.Er.24h) 25 mg PO DAILY [facility]; Protocol Last Admin: 12/26/21 10:05 Dose: Not Given Documented By: PRINCE Non-Admin Reason: NPO Metoprolol Tartrate (Metoprolol Tartrate 5 Mg/5 Ml Vial) 5 mg IVPUSH Q4H PRN PRN Reason: HR>125 Last Admin: 12/26/21 10:33 Dose: 5 mg Documented By: PRINCE Mirtazapine (Mirtazapine 7.5 Mg Tablet) 7.5 mg PO BEDTIME [facility] Last Admin: 12/25/21 21:35 Dose: Not Given Documented By: CUAUHTEMOC Non-Admin Reason: Patient Condition Contraindication Multivitamins/Vitamin C (Multivitamin Tablet) 1 tab PO DAILY [facility] Last Admin: 12/26/21 10:05 Dose: Not Given Documented By: PRINCE Non-Admin Reason: NPO Nystatin (Nystatin Cream 15 Gm Tube) 1 appl TOPICAL BID [facility]; Protocol Last Admin: 12/26/21 10:12 Dose: Not Given Documented By: PRINCE Non-Cecilia Reason: Med Not Available Pharmacy Consult (Consult Rx Perform Med Rec) 1 each MISCELLANE ONCE PRN PRN Reason: Consult order Pharmacy Consult (Consult Rx Vancomycin Dosing) 1 each MISCELLANE DAILY PRN PRN Reason: Consult order Pregabalin (Pregabalin 100 Mg Capsule) 100 mg PO TID [facility] Last Admin: 12/26/21 10:05 Dose: Not Given Documented By: PRINCE Non-Admin Reason: NPO Rivaroxaban (Rivaroxaban 20 Mg Tablet) 20 mg PO DAILY [facility] Last Admin: 12/26/21 10:05 Dose: Not Given Documented By: PRINCE Non-Admin Reason: NPO Senna (Sennosides 8.6 Mg Tablet) 17.2 mg PO BEDTIME PRN PRN Reason: Constipation Senna (Sennosides 8.6 Mg Tablet) 17.2 mg PO DAILY PRN PRN Reason: Constipation Sodium Chloride (0.9 % Sodium Chloride Flush 3 Ml Syringe) 3 ml IVFLUSH QSHIFT [facility] Last Admin: 12/26/21 09:02 Dose: Not Given Documented By: PRINCE Non-Admin Reason: IV Running Trazodone HCl (Trazodone Hcl 50 Mg Tablet) 50 mg PO BEDTIME [facility] Last Admin: 12/25/21 21:35 Dose: Not Given Documented By: CUAUHTEMOC Non-Admin Reason: Patient Condition Contraindication Labs CBC & Chem 7: 12/26/21 06:53 12/26/21 06:53 Labs: Laboratory Results - last 24 hr 12/25/21 12/25/21 12/25/21 13:55 13:55 13:55 MCV 95.5 MCH 31.2 MCHC 32.6 RDW 14.6 Plt Count 168 D MPV 11.1 Immature Gran % (Auto) Cancelled Neut % (Auto) Cancelled Lymph % (Auto) Cancelled [place] % (Auto) Cancelled Eos % (Auto) Cancelled Baso % (Auto) Cancelled Lymph # (Auto) Cancelled [place] # (Auto) Cancelled Eos # (Auto) Cancelled Baso # (Auto) Cancelled Abs Immat Gran (auto) Cancelled Absolute Neuts (auto) Cancelled Absolute Nucleated RBC 0.000 Nucleated RBC % (auto) 0.0 Neutrophils % (Manual) 79 H Band Neutrophils % 17 H Lymphocytes % (Manual) 3 L Monocytes % (Manual) 1 L Abs Neuts (Manual) 16.1 H Lymphocytes # (Manual) 0.5 L Monocytes # (Manual) 0.2 Toxic Vacuolation PRESENT Platelet Estimate NORMAL Large Platelets Plt Morphology Comment NORMAL RBC Morphology NOTED Ovalocytes 1+ (5-14) [place] Cells 2+ (3-5) PT INR VBG pH VBG pCO2 VBG pO2 VBG HCO3 VBG O2 Saturation VBG Base Excess Anion Gap Estim Creat Clear Calc Estimated GFR POC Glucose Random Glucose Lactic Acid Lactic Acid F/U @ 2Hr Calcium Magnesium Total Bilirubin Direct Bilirubin AST ALT Alkaline Phosphatase Ammonia 24 Troponin I High Sens B-Natriuretic Peptide 310 H Total Protein Albumin Urine Color Urine Appearance Urine pH Ur Specific [place] Urine Protein Urine Glucose (UA) Urine Ketones Urine Blood Urine Nitrite Ur Leukocyte Esterase Urine RBC Urine WBC Ur Squamous Epith Cells Amorphous Sediment Urine Bacteria RBC Casts COVID-19 (ELLEN) COVID-19 Clin Com 12/25/21 12/25/21 12/25/21 13:55 13:55 13:55 MCV MCH MCHC RDW Plt Count MPV Immature Gran % (Auto) Neut % (Auto) Lymph % (Auto) [place] % (Auto) Eos % (Auto) Baso % (Auto) Lymph # (Auto) [place] # (Auto) Eos # (Auto) Baso # (Auto) Abs Immat Gran (auto) Absolute Neuts (auto) Absolute Nucleated RBC Nucleated RBC % (auto) Neutrophils % (Manual) Band Neutrophils % Lymphocytes % (Manual) Monocytes % (Manual) Abs Neuts (Manual) Lymphocytes # (Manual) Monocytes # (Manual) Toxic Vacuolation Platelet Estimate Large Platelets Plt Morphology Comment RBC Morphology Ovalocytes [place] Cells PT 36.8 H INR 3.1 H VBG pH VBG pCO2 VBG pO2 VBG HCO3 VBG O2 Saturation VBG Base Excess Anion Gap Estim Creat Clear Calc Estimated GFR POC Glucose Random Glucose Lactic Acid 2.5 H* Lactic Acid F/U @ 2Hr Calcium Magnesium Total Bilirubin Direct Bilirubin AST ALT Alkaline Phosphatase Ammonia Troponin I High Sens 184.6 H* B-Natriuretic Peptide Total Protein Albumin Urine Color Urine Appearance Urine pH Ur Specific [place] Urine Protein Urine Glucose (UA) Urine Ketones Urine Blood Urine Nitrite Ur Leukocyte Esterase Urine RBC Urine WBC Ur Squamous Epith Cells Amorphous Sediment Urine Bacteria RBC Casts COVID-19 (ELLEN) COVID-19 Clin Com 12/25/21 12/25/21 12/25/21 13:55 14:03 14:35 MCV MCH MCHC RDW Plt Count MPV Immature Gran % (Auto) Neut % (Auto) Lymph % (Auto) [place] % (Auto) Eos % (Auto) Baso % (Auto) Lymph # (Auto) [place] # (Auto) Eos # (Auto) Baso # (Auto) Abs Immat Gran (auto) Absolute Neuts (auto) Absolute Nucleated RBC Nucleated RBC % (auto) Neutrophils % (Manual) Band Neutrophils % Lymphocytes % (Manual) Monocytes % (Manual) Abs Neuts (Manual) Lymphocytes # (Manual) Monocytes # (Manual) Toxic Vacuolation Platelet Estimate Large Platelets Plt Morphology Comment RBC Morphology Ovalocytes [place] Cells PT INR VBG pH 7.37 VBG pCO2 42 VBG pO2 58 VBG HCO3 24 VBG O2 Saturation 85.0 VBG Base Excess -0.4 Anion Gap Estim Creat Clear Calc Estimated GFR POC Glucose Random Glucose Lactic Acid Lactic Acid F/U @ 2Hr Calcium Magnesium Total Bilirubin Direct Bilirubin AST ALT Alkaline Phosphatase Ammonia Troponin I High Sens B-Natriuretic Peptide Total Protein Albumin Urine Color ORANGE A Urine Appearance CLOUDY Urine pH 5.5 Ur Specific [place] 1.025 Urine Protein 2+ H Urine Glucose (UA) 250 H Urine Ketones 5 Urine Blood 3+ H Urine Nitrite SEE NOTE Ur Leukocyte Esterase SEE NOTE Urine RBC 0-2 Urine WBC 1-4 Ur Squamous Epith Cells 1+ Amorphous Sediment 3+ Urine Bacteria 4+ RBC Casts 5-9 COVID-19 (ELLEN) Negative COVID-19 Clin Com See Note 12/25/21 12/25/21 12/25/21 14:46 16:32 21:22 MCV MCH MCHC RDW Plt Count MPV Immature Gran % (Auto) Neut % (Auto) Lymph % (Auto) [place] % (Auto) Eos % (Auto) Baso % (Auto) Lymph # (Auto) [place] # (Auto) Eos # (Auto) Baso # (Auto) Abs Immat Gran (auto) Absolute Neuts (auto) Absolute Nucleated RBC Nucleated RBC % (auto) Neutrophils % (Manual) Band Neutrophils % Lymphocytes % (Manual) Monocytes % (Manual) Abs Neuts (Manual) Lymphocytes # (Manual) Monocytes # (Manual) Toxic Vacuolation Platelet Estimate Large Platelets Plt Morphology Comment RBC Morphology Ovalocytes [place] Cells PT INR VBG pH VBG pCO2 VBG pO2 VBG HCO3 VBG O2 Saturation VBG Base Excess Anion Gap 15 Estim Creat Clear Calc 36.0 Estimated GFR 33 POC Glucose 161 H Random Glucose 167 H Lactic Acid Lactic Acid F/U @ 2Hr 1.6 Calcium 7.7 L D Magnesium 1.5 L Total Bilirubin 2.7 H Direct Bilirubin 2.1 H AST 127 H ALT 186 H Alkaline Phosphatase 210 H D Ammonia Troponin I High Sens B-Natriuretic Peptide Total Protein 6.4 L Albumin 3.1 L Urine Color Urine Appearance Urine pH Ur Specific [place] Urine Protein Urine Glucose (UA) Urine Ketones Urine Blood Urine Nitrite Ur Leukocyte Esterase Urine RBC Urine WBC Ur Squamous Epith Cells Amorphous Sediment Urine Bacteria RBC Casts COVID-19 (ELLEN) COVID-19 Clin Com 12/26/21 12/26/21 12/26/21 06:49 06:53 06:53 MCV 97.5 MCH 30.9 MCHC 31.7 RDW 14.6 Plt Count 123 L D MPV 11.9 Immature Gran % (Auto) Cancelled Neut % (Auto) Cancelled Lymph % (Auto) Cancelled [place] % (Auto) Cancelled Eos % (Auto) Cancelled Baso % (Auto) Cancelled Lymph # (Auto) Cancelled [place] # (Auto) Cancelled Eos # (Auto) Cancelled Baso # (Auto) Cancelled Abs Immat Gran (auto) Cancelled Absolute Neuts (auto) Cancelled Absolute Nucleated RBC 0.000 Nucleated RBC % (auto) 0.0 Neutrophils % (Manual) 96 H Band Neutrophils % 0 L Lymphocytes % (Manual) 4 L Monocytes % (Manual) Abs Neuts (Manual) 8.9 H Lymphocytes # (Manual) 0.4 L Monocytes # (Manual) Toxic Vacuolation Platelet Estimate SLIGHTLY DECREASED Large Platelets PRESENT Plt Morphology Comment NOTED RBC Morphology NOTED Ovalocytes 1+ (5-14) [place] Cells PT INR VBG pH VBG pCO2 VBG pO2 VBG HCO3 VBG O2 Saturation VBG Base Excess Anion Gap 13 Estim Creat Clear Calc 46.8 Estimated GFR 45 POC Glucose 130 H Random Glucose 144 H Lactic Acid Lactic Acid F/U @ 2Hr Calcium 7.3 L Magnesium Total Bilirubin Direct Bilirubin AST ALT Alkaline Phosphatase Ammonia Troponin I High Sens B-Natriuretic Peptide Total Protein Albumin Urine Color Urine Appearance Urine pH Ur Specific [place] Urine Protein Urine Glucose (UA) Urine Ketones Urine Blood Urine Nitrite Ur Leukocyte Esterase Urine RBC Urine WBC Ur Squamous Epith Cells Amorphous Sediment Urine Bacteria RBC Casts COVID-19 (ELLEN) COVID-19 Clin Com Microbiology Microbiology Results: Microbiology 12/25/21 13:37 Blood Culture - Preliminary Blood - Venous Prelim: GNR Gram Stain only 12/25/21 13:55 Blood Culture - Preliminary Blood - Venous Prelim: GNR Gram Stain only Assessment and Plan (1) Fever: Status: Acute Plan 71-year-old female with a past medical history of hypertension, hyperlipidemia, diabetes, CAD, CHF, AFib, anxiety, depression, schizoaffective disorder, history of bilateral lower extremity DVT, asthma, osteoarthritis, dorsalgia, [facility] resident, nonverbal at baseline; presented to the hospital with a chief complaint of altered mental status.? Noted to have following Toxic metabolic encephalopathy.? secondary to bacteremia baseline confusion GNR Bacteremia ? concern for question cholecystitis.? General surgery aware of the patient-recommended HIDA scan as CT scan is inconclusive.? Patient empirically covered with IV vancomycin and Zosyn, will stop Vanco and continue Zosyn ? Follow-up cultures CAP, Right lower lobe pneumonia Suspected aspiration.? Continue IV Zosyn.? NPO.? Speech and swallow eval.? Aspiration precautions. Transaminitis Likely in setting of sepsis.? Follow LFT. AFib with RVR Patient on diltiazem, metoprolol, rivaroxaban.? Will continue.? Continue p.o. medications unable to tolerate.? ANABELL Likely prerenal.? Hold home diuretics.? Avoid nephrotoxins.? Patient on gentle IV fluids. History of CHF Hold home Lasix for now.? Monitor for signs of fluid overload. History of diabetes Insulin sliding scale.? Monitor fingerstick glucose and adjust insulins as needed.? Hold metformin. History of hypertensionn Hold home amlodipine for now.? Patient continued on metoprolol, diltiazem. History of anxiety/depression/schizoaffective disorder Continue home clonazepam/mirtazapine DVT prophylaxis:? Patient on Xarelto Code status:? Full Code.? Patient has MOLST form Attending Dr. Cuevas . Continue hospitalization for Gram-negative bacteremia requiring IV antibiotics Quality Stroke Does the patient have a stroke diagnosis?: No VTE Prior VTE?: No VTE Risk Level:: Medical - moderate - high VTE Device Contraindication: Treatment Not Indicated VTE Drug Contraindication: N/A - Med Ordered
[2021-12-26 14:06] LABS: Glucose, Whole Blood 132 mg/dL (60-115)
[2021-12-26] MEDS: 0.9 % Sodium Chloride 1,000 ML 50 ML IVCONT (15:03)
[2021-12-26 20:48] LABS: Glucose, Whole Blood 139 mg/dL (60-115)
--- NOTE | 2021-12-26 20:55 | PC.NURSE ---
Pt continues to be to altered to take PO meds, heart rate 119 at this time, Dr Arita made aware.
--- NOTE | 2021-12-26 23:42 | W.PM.IDCN ---
History of Present Illness Data of Consult Service Date: 12/26/21 Requesting physician: Malcolm Cuevas Primary Care Provider: Unknown Physician HPI Reason for consult: altered mental status She presents from facility with altered mental status day of admission She has gram negative rods blood and pyuria in urine Gallbladder distended with stones and seen by surgery Review of Systems Review of Systems: Yes Unobtainable due to mental status PMFSH Past Medical History Medical History (Updated 12/26/21 @ 23:45 by Uma San MD) Afib Bacteremia due to Gram-negative bacteria DVT, bilateral lower limbs Hypercholesterolemia Lumbar degenerative disc disease Recurrent UTI Type 2 diabetes mellitus with hyperglycemia Family History Family History Father Diabetes Heart disease Mother Heart disease Son Opiate addiction Surgical History Surgical History History of lumpectomy of right breast History of tubal ligation Social History Social History Household Members: Unknown / Unable to assess Household Members Other:: Brought to ER by son with whom she lives Housing: Unknown / Unable to assess Unable to assess alcohol history related to: Unknown Alcohol intake: unknown Patient Tobacco Use Status: Never used Tobacco e-Cigarette/Vaping Use: Never Used Second Hand Smoke Exposure: No Use of substances other than those prescribed or required for medical reasons: Unable to respond Advance Directives: Yes Advance Directives on File: Yes Advance Directives Date on File: 01/09/21 service: No Current occupational status: retired Cognitive needs: Yes (Electric Wheel Chair) Hearing needs: Yes (Earring Aids) Vision needs: Yes (Glasses) Meds Allergies Allergy/AdvReac Type Severity Reaction Status Date / Time sulfamethoxazole Allergy Intermediate rash face Verified 10/17/21 10:17 [From Bactrim] trimethoprim [From Bactrim] Allergy Intermediate rash face Verified 10/17/21 10:17 amoxicillin [Augmentin] Allergy Unknown Diarrhea Verified 10/17/21 10:17 clavulanic acid [Augmentin] Allergy Unknown Diarrhea Verified 10/17/21 10:17 Iodinated Contrast Media Allergy Unknown THROAT Verified 10/17/21 10:17 [IV Dye, Iodine Containing CLOSES Contrast ] UP/SWELLIN iodine [IODINE] Allergy Unknown ANAPHYLAXIS Verified 10/17/21 10:17 lisinopril [LISINOPRIL] Allergy Unknown UNKNOWN, Verified 10/17/21 10:17 cough, cough prednisone [PREDNISONE] Allergy Unknown INCREASE Verified 10/17/21 10:17 BLOOD PRESSURE quetiapine [From SEROQUEL] Allergy Unknown SWELLING Verified 10/17/21 10:17 X-ray dye Allergy Unknown Facial Verified 10/17/21 10:17 swelling/ trouble breathing apixaban [From Eliquis] AdvReac Intermediate Diarrhea Verified 10/17/21 10:17 Active Medications: Current Medications Acetaminophen (Acetaminophen 325 Mg Tablet) 650 mg PO Q6H PRN PRN Reason: Pain, Mild (Pain Scale 1-3) Acetaminophen (Acetaminophen Supp 650 Mg Supp.Rect) 650 mg MO Q6H PRN PRN Reason: Fever Last Admin: 12/25/21 20:42 Dose: 650 mg Albuterol Sulfate (Albuterol Sulfate 90 Mcg 8 Gm Inhaler) 2 puff INHALE Q6H PRN PRN Reason: Shortness Of Breath Or Wheezing Atorvastatin Calcium (Atorvastatin Calcium 10 Mg Tablet) 10 mg PO BEDTIME [facility] Last Admin: 12/26/21 20:57 Dose: Not Given Bisacodyl (Bisacodyl 10 Mg Supp.Rect) 10 mg MO DAILY PRN PRN Reason: Constipation Clonazepam (Clonazepam 1 Mg Tablet) 1 mg PO BID [facility] Last Admin: 12/26/21 20:57 Dose: Not Given Dextrose (Dextrose 50 % 25 Gm/50 Ml Syringe) 25 gm IVPUSH Q15M PRN; Protocol PRN Reason: per Hypoglycemia Standing Ord. Diltiazem HCl (Diltiazem Hcl Cd 180 Mg Cap.Er.24h) 180 mg PO BID [facility]; Protocol Last Admin: 12/26/21 20:57 Dose: Not Given Escitalopram Oxalate (Escitalopram Oxalate 10 Mg Tablet) 10 mg PO DAILY [facility] Last Admin: 12/26/21 10:05 Dose: Not Given Glucose (Glucose Gel 15 Gm Gel..Gram.) 15 gm PO Q15M PRN; Protocol PRN Reason: per Hypoglycemia Standing Ord. Sodium Chloride (Ns) 1,000 mls @ 50 mls/hr IVCONT .Q20H [facility] Last Admin: 12/26/21 15:03 Dose: 50 mls/hr Piperacillin Sod/Tazobactam (Sod 2.25 gm/ Sodium Chloride) 50 mls @ 100 mls/hr IV Q6H [facility] Last Infusion: 12/26/21 21:25 Dose: Infused Insulin Human Lispro (Insulin Lispro 100 Unit/Ml 3 Ml Vial) 0 unit SUBCUT QIDACHS [facility]; Protocol Last Admin: 12/26/21 20:58 Dose: Not Given Melatonin (Melatonin 3 Mg Tablet) 6 mg PO BEDTIME PRN PRN Reason: Insomnia Metoprolol Succinate (Metoprolol Succinate Er 25 Mg Tab.Er.24h) 25 mg PO DAILY [facility]; Protocol Last Admin: 12/26/21 10:05 Dose: Not Given Metoprolol Tartrate (Metoprolol Tartrate 5 Mg/5 Ml Vial) 5 mg IVPUSH Q4H PRN PRN Reason: HR>125 Last Admin: 12/26/21 19:06 Dose: 5 mg Mirtazapine (Mirtazapine 7.5 Mg Tablet) 7.5 mg PO BEDTIME [facility] Last Admin: 12/26/21 20:58 Dose: Not Given Multivitamins/Vitamin C (Multivitamin Tablet) 1 tab PO DAILY [facility] Last Admin: 12/26/21 10:05 Dose: Not Given Nystatin (Nystatin Cream 15 Gm Tube) 1 appl TOPICAL BID [facility]; Protocol Last Admin: 12/26/21 20:58 Dose: Not Given Pharmacy Consult (Consult Rx Perform Med Rec) 1 each MISCELLANE ONCE PRN PRN Reason: Consult order Pharmacy Consult (Consult Rx Vancomycin Dosing) 1 each MISCELLANE DAILY PRN PRN Reason: Consult order Pregabalin (Pregabalin 100 Mg Capsule) 100 mg PO TID [facility] Last Admin: 12/26/21 20:58 Dose: Not Given Rivaroxaban (Rivaroxaban 20 Mg Tablet) 20 mg PO DAILY [facility] Last Admin: 12/26/21 10:05 Dose: Not Given Senna (Sennosides 8.6 Mg Tablet) 17.2 mg PO BEDTIME PRN PRN Reason: Constipation Senna (Sennosides 8.6 Mg Tablet) 17.2 mg PO DAILY PRN PRN Reason: Constipation Sodium Chloride (0.9 % Sodium Chloride Flush 3 Ml Syringe) 3 ml IVFLUSH QSHIFT [facility] Last Admin: 12/26/21 18:09 Dose: Not Given Trazodone HCl (Trazodone Hcl 50 Mg Tablet) 50 mg PO BEDTIME [facility] Last Admin: 12/26/21 20:58 Dose: Not Given Home Medications Medication Instructions Recorded Confirmed Last Taken Type albuterol sulfate 90 mcg/actuation 2 puff inhalation Q6H PRN 06/18/20 12/25/21 10/17/21 History aerosol inhaler Shortness Of Breath Or Wheezing Lactobacil.acidophilus-Bifido.animalis 1 cap PO BID 10/17/21 12/25/21 12/24/21 History 5 billion cell sprinkle capsule (Probiotic) acetaminophen 325 mg tablet 650 mg PO Q4H PRN Fever Or Pain 10/17/21 12/25/21 12/24/21 History bisacodyl 10 mg rectal suppository 10 mg MO DAILY PRN Constipation 10/17/21 12/25/21 Unknown History loperamide 2 mg tablet 2 mg PO Q6H PRN Loose Stool 10/17/21 12/25/21 10/26/21 History metoprolol succinate 25 mg 25 mg PO DAILY 10/17/21 12/25/21 12/24/21 History tablet,extended release 24 hr multivitamin with minerals 1 tab PO DAILY 10/17/21 12/25/21 12/24/21 History sennosides 8.6 mg tablet (senna) 17.2 mg PO DAILY PRN Constipation 10/17/21 12/25/21 Unknown History trazodone 50 mg tablet 50 mg PO BEDTIME 10/17/21 12/25/21 12/24/21 History furosemide 20 mg tablet 1 tab PO DAILY 12/25/21 12/25/21 12/24/21 History insulin glargine 100 unit/mL (3 20 unit subcut DAILY 12/25/21 12/25/21 12/24/21 History mL) subcutaneous pen (Lantus Solostar U-100 Insulin) menthol 4 % topical gel (Biofreeze 1 appl topical BID 12/25/21 12/25/21 12/25/21 History (menthol)) mirtazapine 7.5 mg tablet 7.5 mg PO BEDTIME 12/25/21 12/25/21 12/24/21 History nystatin 100,000 unit/gram topical 1 appl topical BID 12/25/21 12/25/21 12/25/21 History cream potassium chloride 10 mEq 1 cap PO DAILY 12/25/21 12/25/21 12/22/21 History capsule,extended release potassium chloride 20 mEq 1 tab PO BID 12/25/21 12/25/21 12/25/21 History tablet,extended release(part/cryst) rivaroxaban 20 mg tablet (Xarelto) 1 tab PO DAILY 12/25/21 12/25/21 12/24/21 History Physical Exam Vital Signs: Vital Signs: Last Vital Signs Temp 97.2 F 12/26/21 04:24 Pulse 132 H 12/26/21 19:05 Resp 22 H 12/26/21 10:29 BP 143/71 H 12/26/21 19:05 Pulse Ox 98 12/26/21 19:05 O2 Del Method 12/26/21 19:05 O2 Flow Rate 4 12/26/21 19:05 Oxygen Flow Rate 4 12/25/21 13:05 BMI result Body Mass Index 27.6 Const: General: cooperative HEENT: Head: Yes normal to inspection Face and sinus: Yes normal facial exam Mouth: Normal oral and palatal mucosa present Teeth and gingiva: dentition normal Eyes: General: appearance normal, both eyes and all related structures Pupils: Equal, round and reactive pupils present Resp: Effort & Inspection: normal respiratory effort Cardio: Rate: regular rate Rhythm: regular rhythm GI: Palpation (GI): Soft to palpation and nontender : General: Yes no CVA tenderness Back/Spine/Pelvis: Back: no CVA tenderness Skin: General skin exam: no rashes or lesions noted Neuro: General: moves all extremities Cranial nerves: Yes Equal, round and reactive pupils present Extrem: General: Yes normal to inspection Psych: Speech and movement: Slowed speech present (Psych) Thought process: Confabulating thought process present Results Labs CBC & Chem 7: 12/26/21 06:53 12/26/21 06:53 Labs: Short CBC 12/26/21 Range/Units 06:53 WBC 9.3 (4.8-10.8) X10*3/uL Hgb 9.7 L (12.0-16.0) g/dl Hct 30.6 L (37.0-47.0) % Plt Count 123 L D (160-400) X10*3/uL BMP 12/26/21 06:53 Sodium 146 H Potassium 3.6 Chloride 113 H Carbon Dioxide 24 BUN 37 H Creatinine 1.17 Calcium 7.3 L Microbiology Microbiology Results: Microbiology 12/25/21 13:37 Blood - Venous Blood Culture - Preliminary Prelim: GNR Gram Stain only 12/25/21 13:55 Blood - Venous Blood Culture - Preliminary Prelim: GNR Gram Stain only Assessment and Plan (1) Cholelithiasis: Status: Acute (2) Fever: Qualifiers: Fever type: unspecified Qualified Code(s): R50.9 - Fever, unspecified Status: Acute (3) Leukocytosis: Qualifiers: Leukocytosis type: unspecified Qualified Code(s): D72.829 - Elevated white blood cell count, unspecified Status: Acute (4) Bacteremia due to Gram-negative bacteria: Status: Acute Source may be urine and /or gallbladder Plan Continue Zosyn Check abdominal u/s Surgery following /?high risk surgery Await cultures blood
[2021-12-27] VITALS (7 sets, daily range): BP systolic 103–142; BP diastolic 54–77; PULSE 76–110; RESP 14–18; TEMP 36–37.2; O2SAT 95–99; BMI 26.8
[2021-12-27] MEDS: Metoprolol Tartrate 5 MG/5 ML VIAL IVPUSH ×3 (00:49→06:14)
[2021-12-27] MEDS: Piperacillin Sodium/Tazobactam 2.25 GM in 0.9 % Sodium Chloride 50 ML IV ×4 (02:09→21:15)
--- NOTE | 2021-12-27 03:02 | MHC.PIE ---
p; p 130-180's. note prn lopressor q4 given in ed at 0049. i; dr merlos notified; give early dose now. e; will cont to monitor
--- NOTE | 2021-12-27 06:12 | PM.EVENT ---
Event Note Date of Service: 12/27/21 Event Note: Afib with RVR: pt is started on Dilatiazem Drip. Cardiology consult
--- NOTE | 2021-12-27 06:21 | MHC.PIE ---
p; p 130-190's. note prn lopressor given early at 0300. i; dr niño notified; give lopressor early now. e; will cont to monitor
[2021-12-27 06:42] LABS: Creatinine Clr Calc Pharmacy 60.6; Estimated Glomerular Filt Rate > 60
[2021-12-27 06:46] LABS: Anion Gap 16 (12-20); Blood Urea Nitrogen 28 mg/dL (9-16); Calcium 7.8 mg/dL (8.4-10.2); Carbon Dioxide 22 mmol/L (22-29); Chloride 114 mmol/L (96-108); Creatinine Clr Calc Pharmacy 59.2; Estimated Glomerular Filt Rate > 60; Glucose Random 181 mg/dL (60-115); Potassium 3.7 mmol/L (3.3-5.1); Sodium 148 mmol/L (135-145)
[2021-12-27 07:54] LABS: Glucose, Whole Blood 149 mg/dL (60-115)
[2021-12-27] MEDS: Dextrose 5 % 1,000 ML 75 ML IVCONT (08:27)
[2021-12-27] MEDS: Escitalopram Oxalate 10 MG TABLET PO (08:33)
[2021-12-27] MEDS: Pregabalin 100 MG CAPSULE PO ×3 (08:33→21:27)
[2021-12-27] MEDS: dilTIAZem HCL CD 180 MG CAP.ER.24H PO (08:33)
[2021-12-27] MEDS: clonazePAM 1 MG TABLET PO ×2 (08:33→21:26)
[2021-12-27] MEDS: Multivitamin TABLET 1 TAB PO (08:33)
[2021-12-27] MEDS: Rivaroxaban 20 MG TABLET PO (08:33)
[2021-12-27] MEDS: 0.9 % Sodium Chloride Flush 3 ML SYRINGE IVFLUSH ×2 (08:34→15:59)
--- NOTE | 2021-12-27 09:01 | P.PNIM_ITS ---
Subjective Subjective Date of Service: 12/27/21 Review of Systems Follow up aspiration pna now with afib rvr Review of Systems: Yes Unobtainable due to mental status Physical Exam Vital Signs: Vital Signs: Last Vital Signs Temp 97.9 F 12/27/21 07:56 Pulse 110 H 12/27/21 07:56 Resp 14 12/27/21 07:56 BP 142/76 H 12/27/21 07:56 Pulse Ox 97 12/27/21 07:56 O2 Del Method 12/27/21 07:56 O2 Flow Rate 3.0 12/27/21 07:56 Oxygen Flow Rate 4 12/25/21 13:05 BMI result Body Mass Index 26.8 Appearing in no acute distress lung sounds are clear to auscultation heart regular rate rhythm, clear S1, S2 positive bowel sounds, abdomen is soft, nontender neuro patient is alert, non verbal Objective Data Active Medications Acetaminophen (Acetaminophen 325 Mg Tablet) 650 mg PO Q6H PRN PRN Reason: Pain, Mild (Pain Scale 1-3) Acetaminophen (Acetaminophen Supp 650 Mg Supp.Rect) 650 mg AR Q6H PRN PRN Reason: Fever Last Admin: 12/25/21 20:42 Dose: 650 mg Documented By: AMBROSIO Albuterol Sulfate (Albuterol Sulfate 90 Mcg 8 Gm Inhaler) 2 puff INHALE Q6H PRN PRN Reason: Shortness Of Breath Or Wheezing Atorvastatin Calcium (Atorvastatin Calcium 10 Mg Tablet) 10 mg PO BEDTIME [facility] Last Admin: 12/26/21 20:57 Dose: Not Given Documented By: MAYLIN Non-Admin Reason: Patient Condition Contraindication Bisacodyl (Bisacodyl 10 Mg Supp.Rect) 10 mg AR DAILY PRN PRN Reason: Constipation Clonazepam (Clonazepam 1 Mg Tablet) 1 mg PO BID [facility] Last Admin: 12/27/21 08:33 Dose: 1 mg Documented By: AARON Dextrose (Dextrose 50 % 25 Gm/50 Ml Syringe) 25 gm IVPUSH Q15M PRN; Protocol PRN Reason: per Hypoglycemia Standing Ord. Diltiazem HCl (Diltiazem Hcl Cd 180 Mg Cap.Er.24h) 180 mg PO BID [facility]; Protocol Last Admin: 12/27/21 08:33 Dose: 180 mg Documented By: AARON Escitalopram Oxalate (Escitalopram Oxalate 10 Mg Tablet) 10 mg PO DAILY [facility] Last Admin: 12/27/21 08:33 Dose: 10 mg Documented By: AARON Glucose (Glucose Gel 15 Gm Gel..Gram.) 15 gm PO Q15M PRN; Protocol PRN Reason: per Hypoglycemia Standing Ord. Piperacillin Sod/Tazobactam (Sod 2.25 gm/ Sodium Chloride) 50 mls @ 100 mls/hr IV Q6H [facility] Last Admin: 12/27/21 08:25 Dose: 100 mls/hr Documented By: AARON Diltiazem HCl 125 mg/ Sodium (Chloride) 125 mls @ 0 mls/hr IVCONT .Q0M [facility]; Protocol Dextrose (D5w) 1,000 mls @ 75 mls/hr IVCONT .[id number] [facility] Last Admin: 12/27/21 08:27 Dose: 75 mls/hr Documented By: AARON Insulin Human Lispro (Insulin Lispro 100 Unit/Ml 3 Ml Vial) 0 unit SUBCUT QIDACHS [facility]; Protocol Last Admin: 12/27/21 08:34 Dose: Not Given Documented By: AARON Non-Admin Reason: No Insulin Coverage Melatonin (Melatonin 3 Mg Tablet) 6 mg PO BEDTIME PRN PRN Reason: Insomnia Metoprolol Succinate (Metoprolol Succinate Er 25 Mg Tab.Er.24h) 25 mg PO DAILY [facility]; Protocol Last Admin: 12/27/21 08:33 Dose: Not Given Documented By: AARON Non-Admin Reason: Hold per Md. Metoprolol Tartrate (Metoprolol Tartrate 5 Mg/5 Ml Vial) 5 mg IVPUSH Q4H PRN PRN Reason: HR>125 Last Admin: 12/27/21 06:14 Dose: 5 mg Documented By: ANDRES Mirtazapine (Mirtazapine 7.5 Mg Tablet) 7.5 mg PO BEDTIME [facility] Last Admin: 12/26/21 20:58 Dose: Not Given Documented By: MAYLIN Non-Admin Reason: Patient Condition Contraindication Multivitamins/Vitamin C (Multivitamin Tablet) 1 tab PO DAILY [facility] Last Admin: 12/27/21 08:33 Dose: 1 tab Documented By: AARON Nystatin (Nystatin Cream 15 Gm Tube) 1 appl TOPICAL BID [facility]; Protocol Last Admin: 12/26/21 20:58 Dose: Not Given Documented By: MAYLIN Non-Admin Reason: Patient Condition Contraindication Pharmacy Consult (Consult Rx Perform Med Rec) 1 each MISCELLANE ONCE PRN PRN Reason: Consult order Pharmacy Consult (Consult Rx Vancomycin Dosing) 1 each MISCELLANE DAILY PRN PRN Reason: Consult order Pregabalin (Pregabalin 100 Mg Capsule) 100 mg PO TID [facility] Last Admin: 12/27/21 08:33 Dose: 100 mg Documented By: AARON Rivaroxaban (Rivaroxaban 20 Mg Tablet) 20 mg PO DAILY [facility] Last Admin: 12/27/21 08:33 Dose: 20 mg Documented By: AARON Senna (Sennosides 8.6 Mg Tablet) 17.2 mg PO BEDTIME PRN PRN Reason: Constipation Senna (Sennosides 8.6 Mg Tablet) 17.2 mg PO DAILY PRN PRN Reason: Constipation Sodium Chloride (0.9 % Sodium Chloride Flush 3 Ml Syringe) 3 ml IVFLUSH QSHIFT [facility] Last Admin: 12/27/21 08:34 Dose: 3 ml Documented By: AARON Trazodone HCl (Trazodone Hcl 50 Mg Tablet) 50 mg PO BEDTIME [facility] Last Admin: 12/26/21 20:58 Dose: Not Given Documented By: MAYLIN Non-Admin Reason: Patient Condition Contraindication Labs CBC & Chem 7: 12/26/21 06:53 12/27/21 12:51 Labs: Laboratory Results - last 24 hr 12/26/21 12/26/21 12/27/21 14:02 20:44 06:01 Anion Gap Estim Creat Clear Calc 60.6 Estimated GFR > 60 POC Glucose 132 H 139 H Random Glucose Calcium 12/27/21 12/27/21 06:01 07:50 Anion Gap 16 Estim Creat Clear Calc 59.2 Estimated GFR > 60 POC Glucose 149 H Random Glucose 181 H Calcium 7.8 L D Microbiology Microbiology Results: Microbiology 12/25/21 13:37 Blood Culture - Preliminary Blood - Venous Prelim: GNR Gram Stain only 12/25/21 13:55 Blood Culture - Preliminary Blood - Venous Prelim: GNR Gram Stain only Assessment and Plan (1) Fever: Status: Acute Plan 71-year-old female with a past medical history of hypertension, hyperlipidemia, diabetes, CAD, CHF, AFib, anxiety, depression, schizoaffective disorder, history of bilateral lower extremity DVT, asthma, osteoarthritis, dorsalgia, [facility] resident, nonverbal at baseline; presented to the hospital with a chief complaint of altered mental status.? Noted to have following AFib with RVR likely from infection started on diltiazem drip given oral cardizem, now stopped metoprolol xl 25mg BID Hypernatremia likely from hypovolemia continue D5W and repeat BMP if no improvement consider nephro consult Hypokalemia repleted Toxic metabolic encephalopathy.? secondary to bacteremia baseline confusion GNR Bacteremia ? concern for question cholecystitis.? General surgery aware of the patient-recommended HIDA scan as CT scan is inconclusive.? Patient empirically covered with IV vancomycin and Zosyn, will stop Vanco and continue Zosyn ? Follow-up cultures CAP, Right lower lobe pneumonia Suspected aspiration.? Continue IV Zosyn.? NPO.? Speech and swallow eval. pending Aspiration precautions. Transaminitis Likely in setting of sepsis.? Follow LFT. ANABELL. Resolved Likely prerenal.? Hold home diuretics.? Avoid nephrotoxins.? History of CHF Hold home Lasix for now.? Monitor for signs of fluid overload. History of diabetes SS, ada diet History of hypertension some low BP readings on dilt drop at this time monitor History of anxiety/depression/schizoaffective disorder Continue home clonazepam/mirtazapine DVT prophylaxis:? Patient on Xarelto Code status:? Full Code.? Patient has MOLST form Attending Dr. Cuevas . Continue hospitalization for Gram-negative bacteremia requiring IV antibiotics Quality Stroke Does the patient have a stroke diagnosis?: No VTE Prior VTE?: No VTE Risk Level:: Medical - moderate - high VTE Device Contraindication: Treatment Not Indicated VTE Drug Contraindication: N/A - Med Ordered
[2021-12-27] MEDS: dilTIAZem HCL 125 MG in 0.9 % Sodium Chloride 100 ML 10 MG IVCONT (09:28)
--- NOTE | 2021-12-27 10:06 | PC.NURSE ---
Assume patient care at 0700. Heart rate in the 140s-200 at times, asymptomatic. Hospitalist Jeanette Singer updated, order to give all po meds with apple sauce, hold metoprolol, start d5w at 75ml/hr. New order to transfer patient to [facility] for higher level of care. Report given to nursing supervisor advice. Supervisors transferred patient to [facility]. Will start cardizem gtt when she gets to [facility].
--- NOTE | 2021-12-27 11:25 | PM.CNCAR ---
History of Present Illness History of Present Illness Date of Service: 12/27/21 Chief complaint: Sepsis Narrative: 76-year-old female with previous CVA, previous bacteremia and atrial fibrillation. She has been on Xarelto metoprolol and diltiazem. She is quite confused currently and cannot give any history. It appears she is presenting again with concern for bacteremia and pneumonia. On antibiotics. Telemetry reviewed and is showing AFib with RVR. She is denying any obvious symptoms but is quite confused too. [facility] Past Medical History Medical History (Updated 12/26/21 @ 23:45 by Uma San MD) Afib Bacteremia due to Gram-negative bacteria DVT, bilateral lower limbs Hypercholesterolemia Lumbar degenerative disc disease Recurrent UTI Type 2 diabetes mellitus with hyperglycemia Family History Family History Father Diabetes Heart disease Mother Heart disease Son Opiate addiction Surgical History Surgical History History of lumpectomy of right breast History of tubal ligation Social History Social History Household Members: None Household Members Other:: Brought to ER by son with whom she lives Housing: Detention Do you presently have visiting nurse or other home services: No Unable to assess alcohol history related to: Unknown Alcohol intake: unknown Patient Tobacco Use Status: Never used Tobacco e-Cigarette/Vaping Use: Never Used Second Hand Smoke Exposure: No Advance Directives Date on File: 01/09/21 service: No Current occupational status: retired Cognitive needs: Yes (Electric Wheel Chair) Hearing needs: Yes (Earring Aids) Vision needs: Yes (Glasses) Meds Allergies Allergy/AdvReac Type Severity Reaction Status Date / Time sulfamethoxazole Allergy Intermediate rash face Verified 10/17/21 10:17 [From Bactrim] trimethoprim [From Bactrim] Allergy Intermediate rash face Verified 10/17/21 10:17 amoxicillin [Augmentin] Allergy Unknown Diarrhea Verified 10/17/21 10:17 clavulanic acid [Augmentin] Allergy Unknown Diarrhea Verified 10/17/21 10:17 Iodinated Contrast Media Allergy Unknown THROAT Verified 10/17/21 10:17 [IV Dye, Iodine Containing CLOSES Contrast ] UP/SWELLIN iodine [IODINE] Allergy Unknown ANAPHYLAXIS Verified 10/17/21 10:17 lisinopril [LISINOPRIL] Allergy Unknown UNKNOWN, Verified 10/17/21 10:17 cough, cough prednisone [PREDNISONE] Allergy Unknown INCREASE Verified 10/17/21 10:17 BLOOD PRESSURE quetiapine [From SEROQUEL] Allergy Unknown SWELLING Verified 10/17/21 10:17 X-ray dye Allergy Unknown Facial Verified 10/17/21 10:17 swelling/ trouble breathing apixaban [From Eliquis] AdvReac Intermediate Diarrhea Verified 10/17/21 10:17 Active Medications: Current Medications Acetaminophen (Acetaminophen 325 Mg Tablet) 650 mg PO Q6H PRN PRN Reason: Pain, Mild (Pain Scale 1-3) Acetaminophen (Acetaminophen Supp 650 Mg Supp.Rect) 650 mg NC Q6H PRN PRN Reason: Fever Last Admin: 12/25/21 20:42 Dose: 650 mg Albuterol Sulfate (Albuterol Sulfate 90 Mcg 8 Gm Inhaler) 2 puff INHALE Q6H PRN PRN Reason: Shortness Of Breath Or Wheezing Atorvastatin Calcium (Atorvastatin Calcium 10 Mg Tablet) 10 mg PO BEDTIME COUNT INCLUDES THE [facility] Last Admin: 12/26/21 20:57 Dose: Not Given Bisacodyl (Bisacodyl 10 Mg Supp.Rect) 10 mg NC DAILY PRN PRN Reason: Constipation Clonazepam (Clonazepam 1 Mg Tablet) 1 mg PO BID COUNT INCLUDES THE [facility] Last Admin: 12/27/21 08:33 Dose: 1 mg Dextrose (Dextrose 50 % 25 Gm/50 Ml Syringe) 25 gm IVPUSH Q15M PRN; Protocol PRN Reason: per Hypoglycemia Standing Ord. Diltiazem HCl (Diltiazem Hcl Cd 180 Mg Cap.Er.24h) 180 mg PO BID COUNT INCLUDES THE [facility]; Protocol Last Admin: 12/27/21 08:33 Dose: 180 mg Escitalopram Oxalate (Escitalopram Oxalate 10 Mg Tablet) 10 mg PO DAILY COUNT INCLUDES THE [facility] Last Admin: 12/27/21 08:33 Dose: 10 mg Glucose (Glucose Gel 15 Gm Gel..Gram.) 15 gm PO Q15M PRN; Protocol PRN Reason: per Hypoglycemia Standing Ord. Piperacillin Sod/Tazobactam (Sod 2.25 gm/ Sodium Chloride) 50 mls @ 100 mls/hr IV Q6H COUNT INCLUDES THE [facility] Last Infusion: 12/27/21 09:58 Dose: Infused Diltiazem HCl 125 mg/ Sodium (Chloride) 125 mls @ 0 mls/hr IVCONT .Q0M COUNT INCLUDES THE [facility]; Protocol Last Titration: 12/27/21 09:36 Dose: 15 mg/hr, 15 mls/hr Dextrose (D5w) 1,000 mls @ 75 mls/hr IVCONT .[id number] COUNT INCLUDES THE [facility] Last Admin: 12/27/21 08:27 Dose: 75 mls/hr Insulin Human Lispro (Insulin Lispro 100 Unit/Ml 3 Ml Vial) 0 unit SUBCUT QIDACHS COUNT INCLUDES THE [facility]; Protocol Last Admin: 12/27/21 08:34 Dose: Not Given Melatonin (Melatonin 3 Mg Tablet) 6 mg PO BEDTIME PRN PRN Reason: Insomnia Metoprolol Succinate (Metoprolol Succinate Er 25 Mg Tab.Er.24h) 25 mg PO DAILY COUNT INCLUDES THE [facility]; Protocol Last Admin: 12/27/21 08:33 Dose: Not Given Metoprolol Tartrate (Metoprolol Tartrate 5 Mg/5 Ml Vial) 5 mg IVPUSH Q4H PRN PRN Reason: HR>125 Last Admin: 12/27/21 06:14 Dose: 5 mg Mirtazapine (Mirtazapine 7.5 Mg Tablet) 7.5 mg PO BEDTIME COUNT INCLUDES THE [facility] Last Admin: 12/26/21 20:58 Dose: Not Given Multivitamins/Vitamin C (Multivitamin Tablet) 1 tab PO DAILY COUNT INCLUDES THE [facility] Last Admin: 12/27/21 08:33 Dose: 1 tab Nystatin (Nystatin Cream 15 Gm Tube) 1 appl TOPICAL BID COUNT INCLUDES THE [facility]; Protocol Last Admin: 12/26/21 20:58 Dose: Not Given Pharmacy Consult (Consult Rx Perform Med Rec) 1 each MISCELLANE ONCE PRN PRN Reason: Consult order Pharmacy Consult (Consult Rx Vancomycin Dosing) 1 each MISCELLANE DAILY PRN PRN Reason: Consult order Pregabalin (Pregabalin 100 Mg Capsule) 100 mg PO TID COUNT INCLUDES THE [facility] Last Admin: 12/27/21 08:33 Dose: 100 mg Rivaroxaban (Rivaroxaban 20 Mg Tablet) 20 mg PO DAILY COUNT INCLUDES THE [facility] Last Admin: 12/27/21 08:33 Dose: 20 mg Senna (Sennosides 8.6 Mg Tablet) 17.2 mg PO BEDTIME PRN PRN Reason: Constipation Senna (Sennosides 8.6 Mg Tablet) 17.2 mg PO DAILY PRN PRN Reason: Constipation Sodium Chloride (0.9 % Sodium Chloride Flush 3 Ml Syringe) 3 ml IVFLUSH QSHIFT COUNT INCLUDES THE [facility] Last Admin: 12/27/21 08:34 Dose: 3 ml Trazodone HCl (Trazodone Hcl 50 Mg Tablet) 50 mg PO BEDTIME COUNT INCLUDES THE [facility] Last Admin: 12/26/21 20:58 Dose: Not Given Home Medications Medication Instructions Recorded Confirmed Last Taken Type albuterol sulfate 90 mcg/actuation 2 puff inhalation Q6H PRN 06/18/20 12/25/21 10/17/21 History aerosol inhaler Shortness Of Breath Or Wheezing Lactobacil.acidophilus-Bifido.animalis 1 cap PO BID 10/17/21 12/25/21 12/24/21 History 5 billion cell sprinkle capsule (Probiotic) acetaminophen 325 mg tablet 650 mg PO Q4H PRN Fever Or Pain 10/17/21 12/25/21 12/24/21 History bisacodyl 10 mg rectal suppository 10 mg NC DAILY PRN Constipation 10/17/21 12/25/21 Unknown History loperamide 2 mg tablet 2 mg PO Q6H PRN Loose Stool 10/17/21 12/25/21 10/26/21 History metoprolol succinate 25 mg 25 mg PO DAILY 10/17/21 12/25/21 12/24/21 History tablet,extended release 24 hr multivitamin with minerals 1 tab PO DAILY 10/17/21 12/25/21 12/24/21 History sennosides 8.6 mg tablet (senna) 17.2 mg PO DAILY PRN Constipation 10/17/21 12/25/21 Unknown History trazodone 50 mg tablet 50 mg PO BEDTIME 10/17/21 12/25/21 12/24/21 History furosemide 20 mg tablet 1 tab PO DAILY 12/25/21 12/25/21 12/24/21 History insulin glargine 100 unit/mL (3 20 unit subcut DAILY 12/25/21 12/25/21 12/24/21 History mL) subcutaneous pen (Lantus Solostar U-100 Insulin) menthol 4 % topical gel (Biofreeze 1 appl topical BID 12/25/21 12/25/21 12/25/21 History (menthol)) mirtazapine 7.5 mg tablet 7.5 mg PO BEDTIME 12/25/21 12/25/21 12/24/21 History nystatin 100,000 unit/gram topical 1 appl topical BID 12/25/21 12/25/21 12/25/21 History cream potassium chloride 10 mEq 1 cap PO DAILY 12/25/21 12/25/21 12/22/21 History capsule,extended release potassium chloride 20 mEq 1 tab PO BID 12/25/21 12/25/21 12/25/21 History tablet,extended release(part/cryst) rivaroxaban 20 mg tablet (Xarelto) 1 tab PO DAILY 12/25/21 12/25/21 12/24/21 History Physical Exam Vital Signs: Vital Signs: Last Vital Signs Temp 98.3 F 12/27/21 11:01 Pulse 99 12/27/21 11:01 Resp 18 12/27/21 11:01 BP 123/75 12/27/21 11:01 Pulse Ox 97 12/27/21 11:01 O2 Del Method 12/27/21 11:01 O2 Flow Rate 3 12/27/21 11:01 Oxygen Flow Rate 4 12/25/21 13:05 BMI result Body Mass Index 26.8 GENERAL APPEARANCE: Dehydrated. Confused.. NECK: no carotid bruit, no jugular venous distention. SKIN: no suspicious lesions, warm and dry. HEART: no murmurs, irregularly regular rhythm. Tachycardia. LUNGS: clear to auscultation bilaterally. ABDOMEN: soft, nontender. EXTREMITIES: no edema. PERIPHERAL PULSES: equal. Objective Labs and Meds Result diagrams: 12/26/21 06:53 12/27/21 06:01 Lab results: Laboratory Results - last 24 hr 12/26/21 12/26/21 12/27/21 14:02 20:44 06:01 Sodium Potassium Chloride Carbon Dioxide Anion Gap BUN Creatinine 0.89 Estim Creat Clear Calc 60.6 Estimated GFR > 60 POC Glucose 132 H 139 H Random Glucose Calcium 12/27/21 12/27/21 06:01 07:50 Sodium 148 H Potassium 3.7 Chloride 114 H Carbon Dioxide 22 Anion Gap 16 BUN 28 H Creatinine 0.91 Estim Creat Clear Calc 59.2 Estimated GFR > 60 POC Glucose 149 H Random Glucose 181 H Calcium 7.8 L D Assessment and Plan (1) Bacteremia due to Gram-negative bacteria: Status: Acute (2) Afib: Qualifiers: Atrial fibrillation type: paroxysmal Qualified Code(s): I48.0 - Paroxysmal atrial fibrillation Status: Acute Plan 76-year-old female with atrial fibrillation and Gram-negative bacteremia. She has known history of CVA and previous atrial fibrillation and has been on Xarelto. Looks clinically dehydrated. Also has Gram-negative sepsis driving the atrial fibrillation. Difficult to control rates. She has been started on Cardizem drip. Please stop the oral Cardizem because she is already maxed out on Cardizem and this is significant amount of medication for her. Increase metoprolol succinate to 25 mg twice a day. IV fluid resuscitation. Would avoid adding more medications. Will titrate beta-ace 1st. AFib driven by infection and may be difficult to control till infection settles. Thank you for allowing me to participate in the care of your patient. Please feel free to contact me if you have any questions. Procedures Date of Service Date of Service: 12/27/21
[2021-12-27 11:32] LABS: Glucose, Whole Blood 196 mg/dL (60-115)
--- NOTE | 2021-12-27 12:14 | PC.NURSE ---
[place] [facility] [place] arrived to floor 09:30. Pt HR 140-190 Afib. Cardizem gtt started per hospitalist @15mg/hr 15 ml/hr. Pt heart rate decreased in 1 hour to HR 120-130s. Hospitalist notified.
[2021-12-27 13:38] LABS: Anion Gap 16 (12-20); Blood Urea Nitrogen 28 mg/dL (9-16); Calcium 7.7 mg/dL (8.4-10.2); Carbon Dioxide 22 mmol/L (22-29); Chloride 114 mmol/L (96-108); Creatinine Clr Calc Pharmacy 56.8; Estimated Glomerular Filt Rate 57; Glucose Random 216 mg/dL (60-115); Potassium 3.1 mmol/L (3.3-5.1); Sodium 149 mmol/L (135-145)
[2021-12-27 15:59] LABS: Glucose, Whole Blood 165 mg/dL (60-115)
[2021-12-27] MEDS: dilTIAZem HCL 125 MG in 0.9 % Sodium Chloride 100 ML 15 MG IVCONT (16:03)
[2021-12-27 19:36] LABS: Anion Gap 15 (12-20); Blood Urea Nitrogen 27 mg/dL (9-16); Calcium 7.7 mg/dL (8.4-10.2); Carbon Dioxide 24 mmol/L (22-29); Chloride 115 mmol/L (96-108); Creatinine Clr Calc Pharmacy 63.5; Estimated Glomerular Filt Rate > 60; Glucose Random 179 mg/dL (60-115); Potassium 2.9 mmol/L (3.3-5.1); Sodium 151 mmol/L (135-145)
[2021-12-27 19:42] LABS: Vancomycin Trough 5.7 mcg/mL (10.0-20.0)
[2021-12-27 20:13] LABS: Glucose, Whole Blood 154 mg/dL (60-115)
[2021-12-27] MEDS: traZODone HCL 50 MG TABLET PO (21:26)
[2021-12-27] MEDS: Mirtazapine 7.5 MG TABLET PO (21:27)
[2021-12-27] MEDS: Atorvastatin Calcium 10 MG TABLET PO (21:27)
[2021-12-28] MEDS: Piperacillin Sodium/Tazobactam 2.25 GM in 0.9 % Sodium Chloride 50 ML IV ×4 (01:55→21:01)
[2021-12-28] MEDS: dilTIAZem HCL 125 MG in 0.9 % Sodium Chloride 100 ML 15 MG IVCONT ×3 (01:55→17:00)
[2021-12-28 04:00] VITALS: BP 127/60; PULSE 116; RESP 20; TEMP 37.1; O2SAT 97
[2021-12-28] MEDS: Dextrose 5 % 1,000 ML 100 ML IVCONT (04:53)
--- NOTE | 2021-12-28 05:53 | PC.NURSE ---
Held HS Toprol XL r/t inability to crush med. Patient taking meds crushed w/ apple sauce. Patient arousable, vitals stable. Dr Mooney aware - maxed on cardizem, HR maintaining in the 90's, afib, occ PVC's. Awaiting swallow eval today. New IV inserted @ approx 2300 - #20g Right lower arm. Bed alarm on for safety, patient repos Q2H.
[2021-12-28 07:14] LABS: Creatinine Clr Calc Pharmacy 63.5; Estimated Glomerular Filt Rate > 60
[2021-12-28 07:50] LABS: Glucose, Whole Blood 239 mg/dL (60-115)
[2021-12-28 07:55] LABS: HBS Num1 1.22 mIU/mL (0-7.99); HBc Num1 0.14 S/CO (0.00-0.79); HBsAGNum1 0.34 S/CO (0.00-0.99); Hepatitis B Core Antibody Nonreactive (Nonreactive); Hepatitis B Surface Antigen Negative (Negative); ~HepC Num1 0.44 S/CO (0.00-0.79); ~Hepatitis B Surface Antibody NONREACTIVE (Nonreactive); ~Hepatitis C Antibody Nonreactive (Nonreactive)
[2021-12-28 08:00] VITALS: BP 142/72; PULSE 84; RESP 20; TEMP 37.1; O2SAT 96
[2021-12-28] MEDS: Insulin Lispro 100 UNIT/ML 3 ML VIAL SUBCUT ×3 (08:50→21:00)
[2021-12-28] MEDS: Multivitamin TABLET 1 TAB PO (08:51)
[2021-12-28] MEDS: Pregabalin 100 MG CAPSULE PO ×3 (08:51→21:01)
[2021-12-28] MEDS: Escitalopram Oxalate 10 MG TABLET PO (08:51)
[2021-12-28] MEDS: Metoprolol Succinate ER 25 MG TAB.ER.24H PO (08:51)
[2021-12-28] MEDS: 0.9 % Sodium Chloride Flush 3 ML SYRINGE IVFLUSH ×2 (08:51→21:02)
[2021-12-28] MEDS: Rivaroxaban 20 MG TABLET PO (08:51)
[2021-12-28] MEDS: clonazePAM 1 MG TABLET PO ×2 (08:51→21:01)
--- NOTE | 2021-12-28 09:17 | P.CDIC_ITS ---
CDI Concurrent Query Documentation Clarification: PHYSICIAN'S DOCUMENTATION REQUEST Date of Query: 12/28/21916 Patient Name: Amarilys Badillo Admit Date: 12/25/21 Dear Doctor, A review of the medical record indicates additional documentation may be needed. Please review below and update the documentation accordingly. Clinical Indicators: Risk Factors/Clinical Indicators/Treatments short of breath respiratory rate 34 treated with 4L oxygen for low saturation per H&P: Hypoxia Recognized standard criteria for respiratory failure includes: (Source: [facility] Hospitalist Apr 2013) ABGs (1 or more) Symptoms: ? PO2 <60 or RA SpO2 <91% ? Tachypnea, SOB, dyspnea ? PcO2 >50 and pH <7.35 ? Pallor or cyanosis ? pO2 decrease or pcO2 increase ? Anxiety or restlessness by 10 mm/Hg from baseline if known ? Use of accessory muscles ? Retractions (grunting in newborns) ? Unable to speak in complete sentences P/F ratio < 300 Supplemental O2 requirement of 40% or more Intubation is not required Clarify which of the following accurately represents the patient's respiratory status: * Acute respiratory failure * Hypoxia * Other (please specify) * Unable to determine Please include type if known: * Hypoxic * Other * Unable to determine Use of terms such as suspected, likely, concern for, or probable (associated with a specific diagnosis that is being evaluated, monitored, or treated as if it exists) are acceptable and can be coded in the inpatient setting, when documented at the time of discharge. Thank you, Sheyla Agudelo RN Extension: [phone] Please use your independent medical judgment in providing your response. THIS QUERY IS PART OF THE PERMANENT MEDICAL RECORD Other Diagnosis: NO doucmented hypoxia, oxygen saturation never below 90%
[2021-12-28 09:19] LABS: Anion Gap 13 (12-20); Blood Urea Nitrogen 24 mg/dL (9-16); Calcium 7.6 mg/dL (8.4-10.2); Carbon Dioxide 25 mmol/L (22-29); Chloride 112 mmol/L (96-108); Creatinine Clr Calc Pharmacy 65.8; Estimated Glomerular Filt Rate > 60; Glucose Random 251 mg/dL (60-115); Potassium 2.7 mmol/L (3.3-5.1); Sodium 147 mmol/L (135-145)
--- NOTE | 2021-12-28 09:26 | P.PNIM_ITS ---
Subjective Subjective Date of Service: 12/28/21 Review of Systems Follow up aspiration pna now with afib rvr Review of Systems: Yes Unobtainable due to mental status Physical Exam Vital Signs: Vital Signs: Last Vital Signs Temp 98.8 F 12/28/21 08:00 Pulse 84 12/28/21 08:00 Resp 20 12/28/21 08:00 BP 142/72 H 12/28/21 08:00 Pulse Ox 96 12/28/21 08:00 O2 Del Method 12/28/21 08:00 O2 Flow Rate 4 12/28/21 08:00 Oxygen Flow Rate 4 12/25/21 13:05 BMI result Body Mass Index 26.8 Objective Data Active Medications Acetaminophen (Acetaminophen 325 Mg Tablet) 650 mg PO Q6H PRN PRN Reason: Pain, Mild (Pain Scale 1-3) Acetaminophen (Acetaminophen Supp 650 Mg Supp.Rect) 650 mg MT Q6H PRN PRN Reason: Fever Last Admin: 12/25/21 20:42 Dose: 650 mg Documented By: AMBROSIO Albuterol Sulfate (Albuterol Sulfate 90 Mcg 8 Gm Inhaler) 2 puff INHALE Q6H PRN PRN Reason: Shortness Of Breath Or Wheezing Atorvastatin Calcium (Atorvastatin Calcium 10 Mg Tablet) 10 mg PO BEDTIME [facility] Last Admin: 12/27/21 21:27 Dose: 10 mg Documented By: JAZIEL Bisacodyl (Bisacodyl 10 Mg Supp.Rect) 10 mg MT DAILY PRN PRN Reason: Constipation Clonazepam (Clonazepam 1 Mg Tablet) 1 mg PO BID [facility] Last Admin: 12/28/21 08:51 Dose: 1 mg Documented By: RAVI Dextrose (Dextrose 50 % 25 Gm/50 Ml Syringe) 25 gm IVPUSH Q15M PRN; Protocol PRN Reason: per Hypoglycemia Standing Ord. Escitalopram Oxalate (Escitalopram Oxalate 10 Mg Tablet) 10 mg PO DAILY [facility] Last Admin: 12/28/21 08:51 Dose: 10 mg Documented By: RAVI Glucose (Glucose Gel 15 Gm Gel..Gram.) 15 gm PO Q15M PRN; Protocol PRN Reason: per Hypoglycemia Standing Ord. Piperacillin Sod/Tazobactam (Sod 2.25 gm/ Sodium Chloride) 50 mls @ 100 mls/hr IV Q6H [facility] Last Admin: 12/28/21 08:50 Dose: 100 mls/hr Documented By: RAVI Diltiazem HCl 125 mg/ Sodium (Chloride) 125 mls @ 0 mls/hr IVCONT .Q0M [facility]; Protocol Last Admin: 12/28/21 01:55 Dose: 15 mg/hr, 15 mls/hr Documented By: JAZIEL Dextrose (D5w) 1,000 mls @ 100 mls/hr IVCONT .Q10H [facility] Last Admin: 12/28/21 04:53 Dose: 100 mls/hr Documented By: BROOKTEKSarah Insulin Human Lispro (Insulin Lispro 100 Unit/Ml 3 Ml Vial) 0 unit SUBCUT QIDACHS [facility]; Protocol Last Admin: 12/28/21 08:50 Dose: 4 unit Documented By: RAVI Melatonin (Melatonin 3 Mg Tablet) 6 mg PO BEDTIME PRN PRN Reason: Insomnia Metoprolol Succinate (Metoprolol Succinate Er 25 Mg Tab.Er.24h) 25 mg PO BID [facility]; Protocol Last Admin: 12/28/21 08:51 Dose: 25 mg Documented By: RAVI Metoprolol Tartrate (Metoprolol Tartrate 5 Mg/5 Ml Vial) 5 mg IVPUSH Q4H PRN PRN Reason: HR>125 Last Admin: 12/27/21 06:14 Dose: 5 mg Documented By: ANDRES Mirtazapine (Mirtazapine 7.5 Mg Tablet) 7.5 mg PO BEDTIME [facility] Last Admin: 12/27/21 21:27 Dose: 7.5 mg Documented By: JAZIEL Multivitamins/Vitamin C (Multivitamin Tablet) 1 tab PO DAILY [facility] Last Admin: 12/28/21 08:51 Dose: 1 tab Documented By: RAVI Nystatin (Nystatin Cream 15 Gm Tube) 1 appl TOPICAL BID [facility]; Protocol Last Admin: 12/27/21 21:27 Dose: Not Given Documented By: JAZIEL Non-Admin Reason: Med Not Available Pharmacy Consult (Consult Rx Perform Med Rec) 1 each MISCELLANE ONCE PRN PRN Reason: Consult order Pharmacy Consult (Consult Rx Vancomycin Dosing) 1 each MISCELLANE DAILY PRN PRN Reason: Consult order Pregabalin (Pregabalin 100 Mg Capsule) 100 mg PO TID [facility] Last Admin: 12/28/21 08:51 Dose: 100 mg Documented By: RAVI Rivaroxaban (Rivaroxaban 20 Mg Tablet) 20 mg PO DAILY [facility] Last Admin: 12/28/21 08:51 Dose: 20 mg Documented By: RAVI Senna (Sennosides 8.6 Mg Tablet) 17.2 mg PO BEDTIME PRN PRN Reason: Constipation Senna (Sennosides 8.6 Mg Tablet) 17.2 mg PO DAILY PRN PRN Reason: Constipation Sodium Chloride (0.9 % Sodium Chloride Flush 3 Ml Syringe) 3 ml IVFLUSH QSHIFT [facility] Last Admin: 12/28/21 08:51 Dose: 3 ml Documented By: RAVI Trazodone HCl (Trazodone Hcl 50 Mg Tablet) 50 mg PO BEDTIME [facility] Last Admin: 12/27/21 21:26 Dose: 50 mg Documented By: JAZIEL Labs CBC & Chem 7: 12/26/21 06:53 12/28/21 08:19 Labs: Laboratory Results - last 24 hr 12/25/21 12/27/21 12/27/21 20:17 11:02 12:51 Anion Gap 16 Estim Creat Clear Calc 56.8 Estimated GFR 57 POC Glucose 196 H Random Glucose 216 H Calcium 7.7 L Vancomycin Trough Hep Bs Antigen Negative Hep Bs Antibody NONREACTIVE Hep B Core Total Ab Nonreactive Hepatitis C Ab (EIA) Nonreactive 12/27/21 12/27/21 12/27/21 15:13 18:57 18:57 Anion Gap 15 Estim Creat Clear Calc 63.5 Estimated GFR > 60 POC Glucose 165 H Random Glucose 179 H Calcium 7.7 L Vancomycin Trough 5.7 L Hep Bs Antigen Hep Bs Antibody Hep B Core Total Ab Hepatitis C Ab (EIA) 12/27/21 12/28/21 12/28/21 19:15 06:09 07:47 Anion Gap Estim Creat Clear Calc 63.5 Estimated GFR > 60 POC Glucose 154 H 239 H Random Glucose Calcium Vancomycin Trough Hep Bs Antigen Hep Bs Antibody Hep B Core Total Ab Hepatitis C Ab (EIA) 12/28/21 08:19 Anion Gap 13 Estim Creat Clear Calc 65.8 Estimated GFR > 60 POC Glucose Random Glucose 251 H Calcium 7.6 L Vancomycin Trough Hep Bs Antigen Hep Bs Antibody Hep B Core Total Ab Hepatitis C Ab (EIA) Microbiology Microbiology Results: Microbiology 12/25/21 13:37 Blood Culture - Preliminary Blood - Venous Escherichia coli 12/25/21 13:55 Blood Culture - Preliminary Blood - Venous Escherichia coli Assessment and Plan (1) Fever: Status: Acute Plan 71-year-old female with a past medical history of hypertension, hyperlipidemia, diabetes, CAD, CHF, AFib, anxiety, depression, schizoaffective disorder, history of bilateral lower extremity DVT, asthma, osteoarthritis, dorsalgia, residential resident, nonverbal at baseline; presented to the hospital with a chief complaint of altered mental status.? Noted to have following AFib with RVR likely from infection continue diltiazem drip given oral cardizem initally, now stopped metoprolol xl 25mg BID Hypernatremia. Slowly resolving. 147 likely from hypovolemia continue D5W and repeat BMP if no improvement consider nephro consult Hypokalemia. 2.7 added to IV fluids repleted Toxic metabolic encephalopathy.? secondary to bacteremia baseline confusion Ecoli Bacteremia ? concern for question cholecystitis.? General surgery aware of the patient-recommended HIDA scan as CT scan is inconclusive.? continue Zosyn ? CAP, Right lower lobe pneumonia Suspected aspiration.? Continue IV Zosyn.? NPO.? Speech and swallow eval. pending Aspiration precautions. Transaminitis Likely in setting of sepsis.? Follow LFT. ANABELL. Resolved Likely prerenal.? Hold home diuretics.? Avoid nephrotoxins.? History of HFpEF Hold home Lasix for now.? Monitor for signs of fluid overload. History of diabetes SS, ada diet History of hypertension some low BP readings on dilt drip monitor History of anxiety/depression/schizoaffective disorder Continue home clonazepam/mirtazapine DVT prophylaxis:? Patient on Xarelto Code status:? Full Code.? Patient has MOLST form Attending Dr. Cuevas . Continue hospitalization for Gram-negative bacteremia requiring IV antibiotics Quality Stroke Does the patient have a stroke diagnosis?: No VTE Prior VTE?: No VTE Risk Level:: Medical - moderate - high VTE Device Contraindication: Treatment Not Indicated VTE Drug Contraindication: N/A - Med Ordered
--- NOTE | 2021-12-28 09:27 | P.CDIC_ITS ---
CDI Concurrent Query Documentation Clarification: PHYSICIAN'S DOCUMENTATION REQUEST Date of Query: 12/28/21927 Patient Name: Amarilys Badillo Admit Date: 12/25/21 Dear Doctor, A review of the medical record indicates additional documentation may be needed. Please review below and update the documentation accordingly. Clinical Indicators: Risk Factors/Clinical Indicators/Treatments BNP 310 Per MD progress note 12/26/21: History of CHF Hold home Lasix for now.? Monitor for signs of fluid overload. Please provide further specificity regarding the most likely type and acuity of CHF you are evaluating, treating, or monitoring. Examples include: Type: * Systolic * Diastolic * Combined Systolic/Diastolic * Other ? please specify * Unable to determine Acuity: * Acute * Chronic * Acute on chronic * Unable to determine Use of terms such as suspected, likely, concern for, or probable (associated with a specific diagnosis that is being evaluated, monitored, or treated as if it exists) are acceptable and can be coded in the inpatient setting, when documented at the time of discharge. Thank you, Sheyla Agudelo RN Extension: [phone] Please use your independent medical judgment in providing your response. THIS QUERY IS PART OF THE PERMANENT MEDICAL RECORD Other Diagnosis: HFpEF
--- NOTE | 2021-12-28 10:06 | P.PNCA_ITS ---
Subjective Subjective Date of Service: 12/28/21 Principal diagnosis: persistent atrial fibrillation, sepsis Interval history: patient offers no cardiac complaints at this point time. Heart rate is better controlled. Continues on maximal IV Cardizem drip at this point in time. Blood pressure is stable. Review of Systems Constitutional: Reports malaise and Reports weakness Eyes: Reports no additional eye complaints Cardiovascular: Reports no additional cardiovascular complaints Respiratory: Reports no additional respiratory complaints Genitourinary: Reports no additional female genitourinary complaints Musculoskeletal: Reports no additional musculoskeletal complaints Skin/Breast: Reports system reviewed and no additional complaints, except as doc u Reports system reviewed and no additional complaints, except as documented and Reports weakness Psychiatric: Reports no additional psychiatric complaints Physical Exam Vital Signs: Last Vital Signs Temp 98.8 F 12/28/21 08:00 Pulse 84 12/28/21 08:00 Resp 20 12/28/21 08:00 BP 142/72 H 12/28/21 08:00 Pulse Ox 96 12/28/21 08:00 O2 Del Method 12/28/21 08:00 O2 Flow Rate 4 12/28/21 08:00 Oxygen Flow Rate 4 12/25/21 13:05 BMI result Body Mass Index 26.8 Const General: cooperative, comfortable, no acute distress, alert, awake and ill appearing Nutritional Appearance: thin Orientation/consciousness: patient oriented x3 Neck Neck: Yes trachea midline and Yes supple Resp Effort & Inspection: decreased respiratory effort Auscultation: clear to auscultation bilaterally Cardio Jugular venous distension: no JVD Rhythm: abnormal rhythm irregularly irregular Heart sounds: S1 normal heart sound present, S2 normal heart sound present, no click, no gallops and no murmurs GI Auscultation: normal bowel sounds Neuro General: patient oriented x3 and no focal motor deficits Extrem General: Yes no clubbing, cyanosis or edema Objective Labs and Meds Result diagrams: 12/26/21 06:53 12/28/21 08:19 Lab results: Laboratory Results - last 24 hr 12/25/21 12/27/21 12/27/21 20:17 11:02 12:51 Sodium 149 H Potassium 3.1 L Chloride 114 H Carbon Dioxide 22 Anion Gap 16 BUN 28 H Creatinine 0.95 Estim Creat Clear Calc 56.8 Estimated GFR 57 POC Glucose 196 H Random Glucose 216 H Calcium 7.7 L Vancomycin Trough Hep Bs Antigen Negative Hep Bs Antibody NONREACTIVE Hep B Core Total Ab Nonreactive Hepatitis C Ab (EIA) Nonreactive 12/27/21 12/27/21 12/27/21 15:13 18:57 18:57 Sodium 151 H Potassium 2.9 L Chloride 115 H Carbon Dioxide 24 Anion Gap 15 BUN 27 H Creatinine 0.85 Estim Creat Clear Calc 63.5 Estimated GFR > 60 POC Glucose 165 H Random Glucose 179 H Calcium 7.7 L Vancomycin Trough 5.7 L Hep Bs Antigen Hep Bs Antibody Hep B Core Total Ab Hepatitis C Ab (EIA) 12/27/21 12/28/21 12/28/21 19:15 06:09 07:47 Sodium Potassium Chloride Carbon Dioxide Anion Gap BUN Creatinine 0.85 Estim Creat Clear Calc 63.5 Estimated GFR > 60 POC Glucose 154 H 239 H Random Glucose Calcium Vancomycin Trough Hep Bs Antigen Hep Bs Antibody Hep B Core Total Ab Hepatitis C Ab (EIA) 12/28/21 08:19 Sodium 147 H Potassium 2.7 L Chloride 112 H Carbon Dioxide 25 Anion Gap 13 BUN 24 H Creatinine 0.82 Estim Creat Clear Calc 65.8 Estimated GFR > 60 POC Glucose Random Glucose 251 H Calcium 7.6 L Vancomycin Trough Hep Bs Antigen Hep Bs Antibody Hep B Core Total Ab Hepatitis C Ab (EIA) Progress Note: A&P Assessment and plan (1) Persistent atrial fibrillation: Status: Acute Assessment and Plan: persistent atrial fibrillation 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 Heart rate is borderline controlled. Maximize metoprolol to 25 mg q.6 hours, short-acting metoprolol. Gradually taper Cardizem drip as heart rate remains below 100 beats per minute. Will continue maximize metoprolol therapy as tolerated. Currently hemodynamically stable with no signs of heart failure. No need for synchronized cardioversion at this point in time. Continue full oral anticoagulation with Xarelto. Continue treat her medical condition with sepsis aggressively. Will continue to follow with you Time Spent With Patient Time: Total time spent is greater than 50% in coordination of care (as documented) at patient's floor/unit and/or counseling patient: Progress Note: Quality Stroke Does the patient have a stroke diagnosis?: No Procedures Date of Service Date of Service: 12/28/21
[2021-12-28] MEDS: Potassium Chloride/H20 10 MEQ/100 ML PIGGYBACK 100 MEQ IV ×2 (11:09→11:44)
[2021-12-28] MEDS: KCl 20 mEq in 5 % Dextrose 20 MEQ/1,000 ML IV.SOLN 100 MEQ IVCONT (11:12)
[2021-12-28 11:26] LABS: Glucose, Whole Blood 180 mg/dL (60-115)
--- NOTE | 2021-12-28 11:42 | MHC.CM.PN ---
Per ROUNDS discussion, Patient is not yet medically cleared for dc r/t Afib with RVR; Patient will return to LT @ [facility] when medically cleared for dc.
[2021-12-28 12:00] VITALS: BP 107/58; PULSE 92; RESP 20; TEMP 37.3; O2SAT 95
[2021-12-28 12:08] VITALS: BMI 26.8
--- NOTE | 2021-12-28 12:11 | MHC.CLN ---
RE: CONSULT PT WITH INCREASE NUTRITION RISK R/T PRESSURE INJURY PT IS CURRENTLY NPO WHEN DIET ADVANCES; RECOMMEND ADDING ENSURE BID TO INCREASE KCALS AND PROMOTE WOUND HEALING ENSURE ENLIVE WILL PROVIDE 700KCALS, 40G PROTEIN MONITOR PO INTAKE CLOSELY
--- NOTE | 2021-12-28 12:59 | MHC.SLORD ---
Speech Language Pathology Order Status: Received order for bedside swallow evaluation. Patient seen at bedside, took two bites of applesauce with benito cracker pieces. RN walked in and notified ROCK CRUSHER that patient is scheduled for nuclear med study. Discontinued PO trials as patient is NPO for study. Notified attending hospitalist. ROCK CRUSHER called and spoke to nurse from [facility]- Reportedly at baseline patient is on ground/mechanically altered diet with thin liquids. Plan to re-attempt later today or tomorrow morning.
[2021-12-28 16:00] VITALS: BP 113/76; PULSE 113; RESP 18; TEMP 36.6; O2SAT 92
[2021-12-28] MEDS: Metoprolol Tartrate 25 MG TABLET PO ×2 (16:15→21:01)
[2021-12-28 17:03] LABS: Glucose, Whole Blood 160 mg/dL (60-115)
[2021-12-28 18:59] VITALS: PULSE 115; RESP 15; TEMP 36.6; O2SAT 92
[2021-12-28 20:00] VITALS: BP 120/62; PULSE 100; RESP 18; O2SAT 93
[2021-12-28 20:52] LABS: Glucose, Whole Blood 185 mg/dL (60-115)
[2021-12-28] MEDS: Nystatin Cream 15 GM TUBE 1 APPL TOPICAL (21:00)
[2021-12-28] MEDS: traZODone HCL 50 MG TABLET PO (21:01)
[2021-12-28] MEDS: Atorvastatin Calcium 10 MG TABLET PO (21:01)
[2021-12-28] MEDS: Mirtazapine 7.5 MG TABLET PO (21:01)
[2021-12-29] VITALS: BP 100/60; PULSE 85; RESP 16; TEMP 36.5; O2SAT 97
[2021-12-29] MEDS: KCl 20 mEq in 5 % Dextrose 20 MEQ/1,000 ML IV.SOLN 100 MEQ IVCONT ×3 (00:25→17:47)
[2021-12-29] MEDS: Piperacillin Sodium/Tazobactam 2.25 GM in 0.9 % Sodium Chloride 50 ML IV ×4 (02:04→20:42)
[2021-12-29 04:00] VITALS: BP 144/75; PULSE 110; RESP 20; TEMP 36.6; O2SAT 92
[2021-12-29 07:04] LABS: Estimated Glomerular Filt Rate > 60
[2021-12-29 07:38] LABS: Glucose, Whole Blood 206 mg/dL (60-115)
[2021-12-29 07:56] LABS: ~Hepatitis A Antibody IgM Nonreactive (Nonreactive)
[2021-12-29 08:13] VITALS: BP 119/66; PULSE 104; RESP 16; TEMP 37.2; O2SAT 93
[2021-12-29] MEDS: dilTIAZem HCL 125 MG in 0.9 % Sodium Chloride 100 ML IVCONT (08:15)
[2021-12-29] MEDS: Insulin Lispro 100 UNIT/ML 3 ML VIAL SUBCUT ×3 (08:16→22:28)
[2021-12-29] MEDS: Escitalopram Oxalate 10 MG TABLET PO (08:17)
[2021-12-29] MEDS: clonazePAM 1 MG TABLET PO ×2 (08:17→22:28)
[2021-12-29] MEDS: Pregabalin 100 MG CAPSULE PO ×3 (08:18→22:28)
[2021-12-29] MEDS: 0.9 % Sodium Chloride Flush 3 ML SYRINGE IVFLUSH ×3 (08:18→22:29)
[2021-12-29] MEDS: Multivitamin TABLET 1 TAB PO (08:18)
[2021-12-29] MEDS: Metoprolol Tartrate 25 MG TABLET PO (08:18)
[2021-12-29] MEDS: Nystatin Cream 15 GM TUBE 1 APPL TOPICAL ×2 (08:20→22:29)
--- NOTE | 2021-12-29 10:10 | PM.PNCARD ---
Subjective Subjective Date of Service: 12/29/21 Principal diagnosis: persistent atrial fibrillation, sepsis Interval history: patient with no cardiac symptoms. Remains in atrial fibrillation with borderline rate control. Was diagnosed with acute cholecystitis. Her IV Cardizem rate has been reduced from 50 mg an hour to 5 mg an hour. She is tolerating p.o. metoprolol at 25 mg q.6. Blood pressures remained stable. Review of Systems Constitutional: Reports fever(s), Reports lethargy and Reports weakness Cardiovascular: Reports no additional cardiovascular complaints Gastrointestinal: Reports no additional gastrointestinal complaints Genitourinary: Reports no additional female genitourinary complaints Musculoskeletal: Reports no additional musculoskeletal complaints Reports system reviewed and no additional complaints, except as documented and Reports weakness Physical Exam Vital Signs: Last Vital Signs Temp 99.0 F 12/29/21 08:13 Pulse 104 H 12/29/21 08:13 Resp 16 12/29/21 08:13 BP 119/66 12/29/21 08:13 Pulse Ox 93 12/29/21 08:13 O2 Del Method 12/29/21 08:13 O2 Flow Rate 2 12/29/21 08:13 Oxygen Flow Rate 4 12/25/21 13:05 BMI result Body Mass Index 26.8 Const General: cooperative, comfortable, no acute distress, alert, awake and ill appearing Nutritional Appearance: thin Orientation/consciousness: patient oriented x3 Neck Neck: Yes trachea midline and Yes supple Resp Effort & Inspection: decreased respiratory effort Auscultation: clear to auscultation bilaterally Cardio Jugular venous distension: no JVD Rhythm: abnormal rhythm irregularly irregular Heart sounds: S1 normal heart sound present, S2 normal heart sound present, no click, no gallops and no murmurs GI Auscultation: normal bowel sounds Neuro General: patient oriented x3 and no focal motor deficits Extrem General: Yes no clubbing, cyanosis or edema Objective Labs and Meds Result diagrams: 12/26/21 06:53 12/29/21 05:26 Lab results: Laboratory Results - last 24 hr 12/25/21 12/28/21 12/28/21 20:17 11:01 17:00 Creatinine Estim Creat Clear Calc Estimated GFR POC Glucose 180 H 160 H Hepatitis A IgM Ab Nonreactive 12/28/21 12/29/21 12/29/21 20:43 05:26 07:34 Creatinine 0.76 Estim Creat Clear Calc 71.0 Estimated GFR > 60 POC Glucose 185 H 206 H Hepatitis A IgM Ab Imaging Radiologist's impression: Impressions Hepatobiliary Scan Nuclear Medicine 12/28/21 15:48 IMPRESSION: Nonvisualization the gallbladder is evidence of an obstructed cystic duct and strong evidence to suggest the diagnosis of acute cholecystitis. The common bile duct is patent. Liver function appears normal. Progress Note: A&P Assessment and plan (1) Persistent atrial fibrillation: Status: Acute Assessment and Plan: Persistent atrial fibrillation, driven by her acute medical/surgical illness and now noted to have acute cholecystitis. She is having low-grade fever. This needs to be treated to improve her cardiac condition and heart rate control. This part of her heart rate response is secondary to metabolic demand. This is likely not to improve unless her underlying medical/ surgical illness is been taken care of. She is hemodynamically stable and currently if she has to undergo surgery not at prohibitive risk. Will increase metoprolol to 50 mg p.o. q.8 hours in gradually down titrate Cardizem drip. Findings were discussed with the primary team. Continue anticoagulation till surgical plan has been made. Will continue to follow with you Time Spent With Patient Time: Total time spent is greater than 50% in coordination of care (as documented) at patient's floor/unit and/or counseling patient: Progress Note: Quality Stroke Does the patient have a stroke diagnosis?: No Procedures Date of Service Date of Service: 12/29/21
--- NOTE | 2021-12-29 10:57 | MHC.SL.SWA ---
Speech Pathologist Impression: Risk of Aspiration Due to: Medically Fragile History of Pneumonia Reduced Cognition Dysphasia Diet Status: Liquid Consistency and Strategies for Safe Swallow: Liquid Intake Recommendation: Thin Liquid Intake Strategies: Small Sips No Straws Solid Food Consistency: Dietary Recommendations: Grnd/Mech Altered (NDD2) Additional Modifications to Solid Foods: Add sauces and gravies. Alternated bites of solids with sips of liquid. Pt will need full assist during meals, aspiration precautions apply. Oral Medication Intake: Crushed with Puree Please contact the pharmacy regarding appropriate crushable or liquid drug formulations that are available whenever modified delivery is recommended. Compensatory Strategies and Precautions to be Taken for Safe Swallow: Sitting Upright (90 deg) Liquids from Cup Small Bites and Sips Alternate Liquids/Solids Rate of Ingestion Change Oral Check Supervision While Eating and Drinking for Safe Swallow: Total Assistance (1:1) Foods to Avoid: Difficulty to chew solids, sticky consistencies. Swallowing Recommended Treatments: Compens. Strategy Educat. Recommendation for Speech: Inpatient Speech Therapy Comment: Pt presents with oral phase dysphagia, due to mild oral motor weakness and edentulous state. Pt tolerated cup sips of thin liquid with no clinical s/s aspiration, presented with slow mastication/mashing of ground consistency, w/ mild oral residual after swallow, cleared by liquid wash. Pt's baseline diet is Ground Mechanical w/ Thin liquids, which is appropriate at this time. Recommend UPGRADE diet to Ground Mechanical/Altered (NDD2) w/ THIN liquids, Pills Crushed in PUREE. Pt presents as frail and confused, will need full assist during all meals w/monitor for signs of aspiration. MD, Hosiery Operator, Nursing notified of recommendations via [place] Text. DATA PROCESSING OPERATOR will follow for toleration of diet, re-assessment of swallow as needed. Frequency/Duration: M-F while admitted as inpatient. Date Range for Service Req: Timeline to reassess: Collections Rep Clinican/Clinical Fellow: No Supervisory Statement: I have reviewed and agree with the student/clinical fellow's documentation: N/A Speech Language Pathologist: Becky Piper M.A., [facility]-DATA PROCESSING OPERATOR
--- NOTE | 2021-12-29 11:14 | P.PNIM_ITS ---
Subjective Subjective Date of Service: 12/29/21 Review of Systems Follow up aspiration pna now with afib rvr Review of Systems: Yes Unobtainable due to mental status Physical Exam Vital Signs: Vital Signs: Last Vital Signs Temp 99.0 F 12/29/21 08:13 Pulse 104 H 12/29/21 08:13 Resp 16 12/29/21 08:13 BP 119/66 12/29/21 08:13 Pulse Ox 93 12/29/21 08:13 O2 Del Method 12/29/21 08:13 O2 Flow Rate 2 12/29/21 08:13 Oxygen Flow Rate 4 12/25/21 13:05 BMI result Body Mass Index 26.8 Appearing in no acute distress lung sounds are clear to auscultation heart IRIR positive bowel sounds neuro patient is alert Objective Data Active Medications Acetaminophen (Acetaminophen 325 Mg Tablet) 650 mg PO Q6H PRN PRN Reason: Pain, Mild (Pain Scale 1-3) Acetaminophen (Acetaminophen Supp 650 Mg Supp.Rect) 650 mg WA Q6H PRN PRN Reason: Fever Last Admin: 12/25/21 20:42 Dose: 650 mg Documented By: AMBROSIO Albuterol Sulfate (Albuterol Sulfate 90 Mcg 8 Gm Inhaler) 2 puff INHALE Q6H PRN PRN Reason: Shortness Of Breath Or Wheezing Atorvastatin Calcium (Atorvastatin Calcium 10 Mg Tablet) 10 mg PO BEDTIME [facility] Last Admin: 12/28/21 21:01 Dose: 10 mg Documented By: JOSE G Bisacodyl (Bisacodyl 10 Mg Supp.Rect) 10 mg WA DAILY PRN PRN Reason: Constipation Clonazepam (Clonazepam 1 Mg Tablet) 1 mg PO BID [facility] Last Admin: 12/29/21 08:17 Dose: 1 mg Documented By: KARLA Dextrose (Dextrose 50 % 25 Gm/50 Ml Syringe) 25 gm IVPUSH Q15M PRN; Protocol PRN Reason: per Hypoglycemia Standing Ord. Escitalopram Oxalate (Escitalopram Oxalate 10 Mg Tablet) 10 mg PO DAILY [facility] Last Admin: 12/29/21 08:17 Dose: 10 mg Documented By: KARLA Glucose (Glucose Gel 15 Gm Gel..Gram.) 15 gm PO Q15M PRN; Protocol PRN Reason: per Hypoglycemia Standing Ord. Piperacillin Sod/Tazobactam (Sod 2.25 gm/ Sodium Chloride) 50 mls @ 100 mls/hr IV Q6H [facility] Last Infusion: 12/29/21 09:05 Dose: 0 mls/hr Documented By: KARLA Diltiazem HCl 125 mg/ Sodium (Chloride) 125 mls @ 0 mls/hr IVCONT .Q0M [facility]; Protocol Last Admin: 12/29/21 08:15 Dose: 5 mg/hr, 5 mls/hr Documented By: KARLA Potassium Chloride/Dextrose () 20 meq in 1,000 mls @ 100 mls/hr IVCONT .Q10H [facility] Last Admin: 12/29/21 08:12 Dose: 100 mls/hr Documented By: KARLA Insulin Human Lispro (Insulin Lispro 100 Unit/Ml 3 Ml Vial) 0 unit SUBCUT QIDACHS [facility]; Protocol Last Admin: 12/29/21 08:16 Dose: 4 unit Documented By: KARLA Melatonin (Melatonin 3 Mg Tablet) 6 mg PO BEDTIME PRN PRN Reason: Insomnia Metoprolol Tartrate (Metoprolol Tartrate 50 Mg Tablet) 50 mg PO QID [facility]; Protocol Mirtazapine (Mirtazapine 7.5 Mg Tablet) 7.5 mg PO BEDTIME [facility] Last Admin: 12/28/21 21:01 Dose: 7.5 mg Documented By: JOSE G Multivitamins/Vitamin C (Multivitamin Tablet) 1 tab PO DAILY [facility] Last Admin: 12/29/21 08:18 Dose: 1 tab Documented By: KARLA Nystatin (Nystatin Cream 15 Gm Tube) 1 appl TOPICAL BID [facility]; Protocol Last Admin: 12/29/21 08:20 Dose: 1 appl Documented By: KARLA Pharmacy Consult (Consult Rx Perform Med Rec) 1 each MISCELLANE ONCE PRN PRN Reason: Consult order Pharmacy Consult (Consult Rx Vancomycin Dosing) 1 each MISCELLANE DAILY PRN PRN Reason: Consult order Pregabalin (Pregabalin 100 Mg Capsule) 100 mg PO TID [facility] Last Admin: 12/29/21 08:18 Dose: 100 mg Documented By: KARLA Rivaroxaban (Rivaroxaban 20 Mg Tablet) 20 mg PO DAILY [facility] Last Admin: 12/28/21 08:51 Dose: 20 mg Documented By: NGENOAL Senna (Sennosides 8.6 Mg Tablet) 17.2 mg PO BEDTIME PRN PRN Reason: Constipation Senna (Sennosides 8.6 Mg Tablet) 17.2 mg PO DAILY PRN PRN Reason: Constipation Sodium Chloride (0.9 % Sodium Chloride Flush 3 Ml Syringe) 3 ml IVFLUSH QSHIFT [facility] Last Admin: 12/29/21 08:18 Dose: 3 ml Documented By: LISATYBAAshley Trazodone HCl (Trazodone Hcl 50 Mg Tablet) 50 mg PO BEDTIME [facility] Last Admin: 12/28/21 21:01 Dose: 50 mg Documented By: JOSE G Labs CBC & Chem 7: 12/26/21 06:53 12/29/21 12:24 Labs: Laboratory Results - last 24 hr 12/25/21 12/28/21 12/28/21 20:17 11:01 17:00 Estim Creat Clear Calc Estimated GFR POC Glucose 180 H 160 H Hepatitis A IgM Ab Nonreactive 12/28/21 12/29/21 12/29/21 20:43 05:26 07:34 Estim Creat Clear Calc 71.0 Estimated GFR > 60 POC Glucose 185 H 206 H Hepatitis A IgM Ab Microbiology Microbiology Results: Microbiology 12/25/21 13:55 Blood Culture - Final Blood - Venous Escherichia coli 12/25/21 13:37 Blood Culture - Final Blood - Venous Escherichia coli Assessment and Plan (1) Fever: Status: Acute Plan 71-year-old female with a past medical history of hypertension, hyperlipidemia, diabetes, CAD, CHF, AFib, anxiety, depression, schizoaffective disorder, history of bilateral lower extremity DVT, asthma, osteoarthritis, dorsalgia, longterm resident, nonverbal at baseline; presented to the hospital with a chief complaint of altered mental status.? Noted to have following Ecoli Bacteremia ? HIDA scan positive for acute cholecystitis Due to AFib RVR, not controlled, will order cholecystostomy drain through IR likely for 12/31/21 Hold Xarelto for 3 full days continue Zosyn ? General surgery following AFib with RVR likely from infection continue diltiazem drip down to 5 mg now Increase metoprolol to 50mg Q8 Hypernatremia. Slowly resolving. 147 likely from hypovolemia continue D5W and repeat BMP if no improvement consider nephro consult Hypokalemia. added to IV fluids repleted Toxic metabolic encephalopathy.? secondary to bacteremia baseline confusion CAP, Right lower lobe pneumonia Suspected aspiration.? Continue IV Zosyn.? speech evaluation recommend ground diet with thin liquids Aspiration precautions. Transaminitis Likely in setting of sepsis.? Follow LFT. ANABELL. Resolved Likely prerenal.? Hold home diuretics.? Avoid nephrotoxins.? History of HFpEF Hold home Lasix for now.? Monitor for signs of fluid overload. History of diabetes SS, ada diet History of hypertension some low BP readings on dilt drip monitor History of anxiety/depression/schizoaffective disorder Continue home clonazepam/mirtazapine DVT prophylaxis:? Patient on Xarelto Code status:? Full Code.? Patient has MOLST form Attending Dr. Cuevas . Continue hospitalization for Gram-negative bacteremia requiring IV antibiotics Quality Stroke Does the patient have a stroke diagnosis?: No VTE Prior VTE?: No VTE Risk Level:: Medical - moderate - high VTE Device Contraindication: Treatment Not Indicated VTE Drug Contraindication: N/A - Med Ordered
[2021-12-29 11:51] LABS: Glucose, Whole Blood 177 mg/dL (60-115)
[2021-12-29 12:00] VITALS: BP 131/65; PULSE 93; RESP 16; TEMP 36.4; O2SAT 95
--- NOTE | 2021-12-29 12:41 | P.PNGS_ITS ---
Subjective Subjective Date of Service: 12/29/21 Patient reports: no new complaints Physical Exam Vital Signs: Vital Signs: Last Vital Signs Temp 97.5 F 12/29/21 12:00 Pulse 93 12/29/21 12:00 Resp 16 12/29/21 12:00 BP 131/65 12/29/21 12:00 Pulse Ox 95 12/29/21 12:00 O2 Del Method 12/29/21 12:00 O2 Flow Rate 2 12/29/21 12:00 Oxygen Flow Rate 4 12/25/21 13:05 BMI result Body Mass Index 26.8 Const: General: confusion Orientation/consciousness: confusion Resp: Effort & Inspection: normal respiratory effort GI: Inspection: Yes normal to inspection Palpation (GI): Soft to palpation Skin: Rashes: no rashes Neuro: General: confusion Objective Data Active Medications Acetaminophen (Acetaminophen 325 Mg Tablet) 650 mg PO Q6H PRN PRN Reason: Pain, Mild (Pain Scale 1-3) Acetaminophen (Acetaminophen Supp 650 Mg Supp.Rect) 650 mg HI Q6H PRN PRN Reason: Fever Last Admin: 12/25/21 20:42 Dose: 650 mg Documented By: AMBROSIO Albuterol Sulfate (Albuterol Sulfate 90 Mcg 8 Gm Inhaler) 2 puff INHALE Q6H PRN PRN Reason: Shortness Of Breath Or Wheezing Atorvastatin Calcium (Atorvastatin Calcium 10 Mg Tablet) 10 mg PO BEDTIME [facility] Last Admin: 12/28/21 21:01 Dose: 10 mg Documented By: JOSE G Bisacodyl (Bisacodyl 10 Mg Supp.Rect) 10 mg HI DAILY PRN PRN Reason: Constipation Clonazepam (Clonazepam 1 Mg Tablet) 1 mg PO BID [facility] Last Admin: 12/29/21 08:17 Dose: 1 mg Documented By: KARLA Dextrose (Dextrose 50 % 25 Gm/50 Ml Syringe) 25 gm IVPUSH Q15M PRN; Protocol PRN Reason: per Hypoglycemia Standing Ord. Escitalopram Oxalate (Escitalopram Oxalate 10 Mg Tablet) 10 mg PO DAILY [facility] Last Admin: 12/29/21 08:17 Dose: 10 mg Documented By: KARLA Glucose (Glucose Gel 15 Gm Gel..Gram.) 15 gm PO Q15M PRN; Protocol PRN Reason: per Hypoglycemia Standing Ord. Piperacillin Sod/Tazobactam (Sod 2.25 gm/ Sodium Chloride) 50 mls @ 100 mls/hr IV Q6H [facility] Last Infusion: 12/29/21 09:05 Dose: 0 mls/hr Documented By: KARLA Diltiazem HCl 125 mg/ Sodium (Chloride) 125 mls @ 0 mls/hr IVCONT .Q0M [facility]; Protocol Last Admin: 12/29/21 08:15 Dose: 5 mg/hr, 5 mls/hr Documented By: KARLA Potassium Chloride/Dextrose () 20 meq in 1,000 mls @ 100 mls/hr IVCONT .Q10H [facility] Last Admin: 12/29/21 08:12 Dose: 100 mls/hr Documented By: KARLA Insulin Human Lispro (Insulin Lispro 100 Unit/Ml 3 Ml Vial) 0 unit SUBCUT QIDACHS [facility]; Protocol Last Admin: 12/29/21 08:16 Dose: 4 unit Documented By: KARLA Melatonin (Melatonin 3 Mg Tablet) 6 mg PO BEDTIME PRN PRN Reason: Insomnia Metoprolol Tartrate (Metoprolol Tartrate 50 Mg Tablet) 50 mg PO TID [facility]; Protocol Mirtazapine (Mirtazapine 7.5 Mg Tablet) 7.5 mg PO BEDTIME [facility] Last Admin: 12/28/21 21:01 Dose: 7.5 mg Documented By: JOSE G Multivitamins/Vitamin C (Multivitamin Tablet) 1 tab PO DAILY [facility] Last Admin: 12/29/21 08:18 Dose: 1 tab Documented By: KARLA Nystatin (Nystatin Cream 15 Gm Tube) 1 appl TOPICAL BID [facility]; Protocol Last Admin: 12/29/21 08:20 Dose: 1 appl Documented By: KARLA Pharmacy Consult (Consult Rx Perform Med Rec) 1 each MISCELLANE ONCE PRN PRN Reason: Consult order Pharmacy Consult (Consult Rx Vancomycin Dosing) 1 each MISCELLANE DAILY PRN PRN Reason: Consult order Pregabalin (Pregabalin 100 Mg Capsule) 100 mg PO TID [facility] Last Admin: 12/29/21 08:18 Dose: 100 mg Documented By: KARLA Rivaroxaban (Rivaroxaban 20 Mg Tablet) 20 mg PO DAILY [facility] Last Admin: 12/28/21 08:51 Dose: 20 mg Documented By: NGENOAL Senna (Sennosides 8.6 Mg Tablet) 17.2 mg PO BEDTIME PRN PRN Reason: Constipation Senna (Sennosides 8.6 Mg Tablet) 17.2 mg PO DAILY PRN PRN Reason: Constipation Sodium Chloride (0.9 % Sodium Chloride Flush 3 Ml Syringe) 3 ml IVFLUSH QSHIFT [facility] Last Admin: 12/29/21 08:18 Dose: 3 ml Documented By: KARLA Trazodone HCl (Trazodone Hcl 50 Mg Tablet) 50 mg PO BEDTIME [facility] Last Admin: 12/28/21 21:01 Dose: 50 mg Documented By: JOSE G Labs CBC & Chem 7: 12/26/21 06:53 12/29/21 05:26 Labs: Laboratory Results - last 24 hr 12/25/21 12/28/21 12/28/21 20:17 17:00 20:43 Estim Creat Clear Calc Estimated GFR POC Glucose 160 H 185 H Hepatitis A IgM Ab Nonreactive 12/29/21 12/29/21 12/29/21 05:26 07:34 11:48 Estim Creat Clear Calc 71.0 Estimated GFR > 60 POC Glucose 206 H 177 H Hepatitis A IgM Ab Microbiology Microbiology Results: Microbiology 12/25/21 13:55 Blood Culture - Final Blood - Venous Escherichia coli 12/25/21 13:37 Blood Culture - Final Blood - Venous Escherichia coli Procedures Date of Service Date of Service: 12/29/21 Progress Note: A&P Assessment and plan (1) Cholelithiasis: Status: Acute (2) Acute cholecystitis due to biliary calculus: Status: Acute Plan 76-year-old female patient with Gram-negative bacteremia from her gallstones on ultrasound and CT. HIDA scan yesterday with significant for nonvisualization of the gallbladder suggestive of acute cholecystitis. Common bile duct is open with bile flowing into small bowel. As patient is not a great surgical candidate at this time, suggest cholecystostomy tube in IR. Elective cholecystectomy could be performed once the patient stabilized. We will continue to monitor. Time Spent With Patient Time: Total time spent is greater than 50% in coordination of care (as documented) at patient's floor/unit and/or counseling patient: Quality Stroke Does the patient have a stroke diagnosis?: No VTE Prior VTE?: No VTE Risk Level:: Medical - moderate - high VTE Device Contraindication: Treatment Not Indicated VTE Drug Contraindication: N/A - Med Ordered
[2021-12-29 13:28] LABS: Anion Gap 13 (12-20); Blood Urea Nitrogen 13 mg/dL (9-16); Calcium 7.6 mg/dL (8.4-10.2); Carbon Dioxide 25 mmol/L (22-29); Chloride 107 mmol/L (96-108); Creatinine Clr Calc Pharmacy 74.9; Estimated Glomerular Filt Rate > 60; Glucose Random 182 mg/dL (60-115); Potassium 2.9 mmol/L (3.3-5.1); Sodium 142 mmol/L (135-145)
[2021-12-29 15:24] VITALS: BP 127/60; PULSE 92; RESP 18; TEMP 36.3; O2SAT 94
[2021-12-29] MEDS: Metoprolol Tartrate 50 MG TABLET PO ×2 (15:37→22:28)
[2021-12-29 16:18] LABS: Glucose, Whole Blood 142 mg/dL (60-115)
[2021-12-29 19:34] VITALS: BP 158/89; PULSE 107; RESP 22; TEMP 36.9; O2SAT 94
[2021-12-29 20:43] LABS: Glucose, Whole Blood 177 mg/dL (60-115)
[2021-12-29] MEDS: Mirtazapine 7.5 MG TABLET PO (22:28)
[2021-12-29] MEDS: Atorvastatin Calcium 10 MG TABLET PO (22:28)
[2021-12-29] MEDS: traZODone HCL 50 MG TABLET PO (22:29)
[2021-12-30] VITALS (7 sets, daily range): BP systolic 98–141; BP diastolic 57–82; PULSE 60–102; RESP 14–18; TEMP 36.2–37.2; O2SAT 94–96
[2021-12-30] MEDS: Piperacillin Sodium/Tazobactam 2.25 GM in 0.9 % Sodium Chloride 50 ML IV (02:47)
[2021-12-30] MEDS: KCl 20 mEq in 5 % Dextrose 20 MEQ/1,000 ML IV.SOLN 100 MEQ IVCONT (05:20)
[2021-12-30 06:52] LABS: Creatinine Clr Calc Pharmacy 77.1; Estimated Glomerular Filt Rate > 60
[2021-12-30 07:02] LABS: Anion Gap 11 (12-20); Blood Urea Nitrogen 7 mg/dL (9-16); Calcium 7.2 mg/dL (8.4-10.2); Carbon Dioxide 28 mmol/L (22-29); Chloride 102 mmol/L (96-108); Creatinine Clr Calc Pharmacy 74.9; Estimated Glomerular Filt Rate > 60; Glucose Random 219 mg/dL (60-115); Potassium 2.7 mmol/L (3.3-5.1); Sodium 138 mmol/L (135-145)
[2021-12-30 07:26] LABS: Glucose, Whole Blood 183 mg/dL (60-115)
[2021-12-30] MEDS: 0.9 % Sodium Chloride Flush 3 ML SYRINGE IVFLUSH ×2 (07:44→15:09)
--- NOTE | 2021-12-30 07:57 | P.CDIC_ITS ---
CDI Concurrent Query Documentation Clarification: PHYSICIAN'S DOCUMENTATION REQUEST Date of Query: 12/30/21 0757 Patient Name: Amarilys Badillo Admit Date: 12/25/21 Dear Doctor, A review of the medical record indicates additional documentation may be needed. Please review below and update the documentation accordingly. Clinical Indicators: Documentation includes the conditions of Sepsis and Gram negative bacteremia Additional clinical indicators in the record include: Risk Factors/Clinical Indicators/Treatments Blood culture 12/25/21 final: E Coli Per MD progress note 12/29/21: hospitalization for Gram-negative bacteremia requiring IV antibiotics sepsis is documented in the MD progress note of 12/29/21 and in the H&P Please clarify the relationship between these conditions: * Yes, Sepsis is related to / associated with / due to E Coli * No Sepsis is not related to / associated with / due to E Coli * Other * Unable to determine Use of terms such as suspected, likely, concern for, or probable (associated with a specific diagnosis that is being evaluated, monitored, or treated as if it exists) are acceptable and can be coded in the inpatient setting, when documented at the time of discharge. Thank you, Sheyla Agudelo RN Extension: [phone] Please use your independent medical judgment in providing your response. THIS QUERY IS PART OF THE PERMANENT MEDICAL RECORD Other Diagnosis: No sepsis afib rvr
--- NOTE | 2021-12-30 08:12 | HO.PM.IMPN ---
Subjective Subjective Date of Service: 12/30/21 Review of Systems Follow up aspiration pna now with afib rvr Review of Systems: Yes Unobtainable due to mental status Physical Exam Vital Signs: Vital Signs: Last Vital Signs Temp 98.0 F 12/30/21 07:50 Pulse 60 12/30/21 07:50 Resp 18 12/30/21 07:50 BP 133/79 12/30/21 07:50 Pulse Ox 95 12/30/21 07:50 O2 Del Method 12/30/21 07:50 O2 Flow Rate 2 12/30/21 07:50 Oxygen Flow Rate 4 12/25/21 13:05 BMI result Body Mass Index 26.8 Appearing in no acute distress lung sounds CTA heart IRIR positive bowel sounds, abdomen is soft, nontender neuro patient is alert, sometimes slow to respond Objective Data Active Medications Acetaminophen (Acetaminophen 325 Mg Tablet) 650 mg PO Q6H PRN PRN Reason: Pain, Mild (Pain Scale 1-3) Acetaminophen (Acetaminophen Supp 650 Mg Supp.Rect) 650 mg MN Q6H PRN PRN Reason: Fever Last Admin: 12/25/21 20:42 Dose: 650 mg Documented By: AMBROSIO Albuterol Sulfate (Albuterol Sulfate 90 Mcg 8 Gm Inhaler) 2 puff INHALE Q6H PRN PRN Reason: Shortness Of Breath Or Wheezing Atorvastatin Calcium (Atorvastatin Calcium 10 Mg Tablet) 10 mg PO BEDTIME [facility] Last Admin: 12/29/21 22:28 Dose: 10 mg Documented By: JOSE G Bisacodyl (Bisacodyl 10 Mg Supp.Rect) 10 mg [place] DAILY PRN PRN Reason: Constipation Clonazepam (Clonazepam 1 Mg Tablet) 1 mg PO BID [facility] Last Admin: 12/30/21 08:01 Dose: Not Given Documented By: FRAN Non-Admin Reason: Patient Refused Dextrose (Dextrose 50 % 25 Gm/50 Ml Syringe) 25 gm IVPUSH Q15M PRN; Protocol PRN Reason: per Hypoglycemia Standing Ord. Escitalopram Oxalate (Escitalopram Oxalate 10 Mg Tablet) 10 mg PO DAILY [facility] Last Admin: 12/30/21 08:01 Dose: Not Given Documented By: FRAN Non-Admin Reason: Patient Refused Glucose (Glucose Gel 15 Gm Gel..Gram.) 15 gm PO Q15M PRN; Protocol PRN Reason: per Hypoglycemia Standing Ord. Piperacillin Sod/Tazobactam (Sod 2.25 gm/ Sodium Chloride) 50 mls @ 100 mls/hr IV Q6H [facility] Last Admin: 12/30/21 08:01 Dose: Not Given Documented By: FRAN Non-Admin Reason: Patient Refused Diltiazem HCl 125 mg/ Sodium (Chloride) 125 mls @ 0 mls/hr IVCONT .Q0M [facility]; Protocol Last Admin: 12/29/21 08:15 Dose: 5 mg/hr, 5 mls/hr Documented By: KARLA Potassium Chloride/Dextrose () 20 meq in 1,000 mls @ 100 mls/hr IVCONT .Q10H [facility] Last Admin: 12/30/21 05:20 Dose: 100 mls/hr Documented By: JOSE G Potassium Chloride () 10 meq in 100 mls @ 100 mls/hr IV Q1H [facility] Stop: 12/30/21 10:14 Insulin Human Lispro (Insulin Lispro 100 Unit/Ml 3 Ml Vial) 0 unit SUBCUT QIDACHS [facility]; Protocol Last Admin: 12/30/21 08:01 Dose: Not Given Documented By: FRAN Non-Admin Reason: Patient Refused Melatonin (Melatonin 3 Mg Tablet) 6 mg PO BEDTIME PRN PRN Reason: Insomnia Metoprolol Tartrate (Metoprolol Tartrate 50 Mg Tablet) 50 mg PO TID [facility]; Protocol Last Admin: 12/30/21 08:01 Dose: Not Given Documented By: FRAN Non-Admin Reason: Patient Refused Mirtazapine (Mirtazapine 7.5 Mg Tablet) 7.5 mg PO BEDTIME [facility] Last Admin: 12/29/21 22:28 Dose: 7.5 mg Documented By: JOSE G Multivitamins/Vitamin C (Multivitamin Tablet) 1 tab PO DAILY [facility] Last Admin: 12/30/21 08:01 Dose: Not Given Documented By: FRAN Non-Admin Reason: Patient Refused Nystatin (Nystatin Cream 15 Gm Tube) 1 appl TOPICAL BID [facility]; Protocol Last Admin: 12/30/21 08:01 Dose: Not Given Documented By: FRAN Non-Admin Reason: Patient Refused Pharmacy Consult (Consult Rx Perform Med Rec) 1 each MISCELLANE ONCE PRN PRN Reason: Consult order Pharmacy Consult (Consult Rx Vancomycin Dosing) 1 each MISCELLANE DAILY PRN PRN Reason: Consult order Potassium Chloride (Potassium Chloride Er 20 Meq Tab.Er.Prt) 40 meq PO DAILY [facility] Last Admin: 12/30/21 08:02 Dose: Not Given Documented By: FRAN Non-Admin Reason: Patient Refused Pregabalin (Pregabalin 100 Mg Capsule) 100 mg PO TID [facility] Last Admin: 12/30/21 08:01 Dose: Not Given Documented By: FRAN Non-Admin Reason: Patient Refused Rivaroxaban (Rivaroxaban 20 Mg Tablet) 20 mg PO DAILY [facility] Last Admin: 12/28/21 08:51 Dose: 20 mg Documented By: NGENOAL Senna (Sennosides 8.6 Mg Tablet) 17.2 mg PO BEDTIME PRN PRN Reason: Constipation Senna (Sennosides 8.6 Mg Tablet) 17.2 mg PO DAILY PRN PRN Reason: Constipation Sodium Chloride (0.9 % Sodium Chloride Flush 3 Ml Syringe) 3 ml IVFLUSH QSHIFT [facility] Last Admin: 12/30/21 07:44 Dose: 3 ml Documented By: FRAN Trazodone HCl (Trazodone Hcl 50 Mg Tablet) 50 mg PO BEDTIME [facility] Last Admin: 12/29/21 22:29 Dose: 50 mg Documented By: JOSE G Labs CBC & Chem 7: 12/26/21 06:53 12/30/21 05:45 Labs: Laboratory Results - last 24 hr 12/25/21 12/29/21 12/29/21 20:17 11:48 12:24 Anion Gap 13 Estim Creat Clear Calc 74.9 Estimated GFR > 60 POC Glucose 177 H Random Glucose 182 H Calcium 7.6 L Hepatitis A IgM Ab Nonreactive 12/29/21 12/29/21 12/30/21 16:13 20:26 05:45 Anion Gap 11 L Estim Creat Clear Calc 74.9 Estimated GFR > 60 POC Glucose 142 H 177 H Random Glucose 219 H Calcium 7.2 L Hepatitis A IgM Ab 12/30/21 12/30/21 05:45 07:07 Anion Gap Estim Creat Clear Calc 77.1 Estimated GFR > 60 POC Glucose 183 H Random Glucose Calcium Hepatitis A IgM Ab Microbiology Microbiology Results: Microbiology 12/25/21 13:55 Blood Culture - Final Blood - Venous Escherichia coli 12/25/21 13:37 Blood Culture - Final Blood - Venous Escherichia coli Assessment and Plan (1) Fever: Status: Acute Plan 71-year-old female with a past medical history of hypertension, hyperlipidemia, diabetes, CAD, CHF, AFib, anxiety, depression, schizoaffective disorder, history of bilateral lower extremity DVT, asthma, osteoarthritis, dorsalgia, jail resident, nonverbal at baseline; presented to the hospital with a chief complaint of altered mental status.? Noted to have following Ecoli Bacteremia ESBL + HIDA scan positive for acute cholecystitis Due to AFib RVR, not controlled, will order cholecystostomy drain through IR likely for 12/31/21, npo after midnight Hold Xarelto for 3 full days Start Meropenem General surgery following AFib with RVR likely from infection continue diltiazem drip down to 5 mg now slow to respond with active gallbaldder issue, once that is corrected this may improve Increase metoprolol to 50mg Q8 Hypernatremia. Resolved likely from hypovolemia treated with D5W and repeat BMP Hypokalemia. added to IV fluids and IV Follow BMP Toxic metabolic encephalopathy.? secondary to bacteremia baseline confusion CAP, Right lower lobe pneumonia Suspected aspiration.? Switched to meropenem speech evaluation recommend ground diet with thin liquids Aspiration precautions. Transaminitis Likely in setting of sepsis.? Follow LFT. ANABELL. Resolved Likely prerenal.? Hold home diuretics.? Avoid nephrotoxins.? History of HFpEF Hold home Lasix for now.? Monitor for signs of fluid overload. History of diabetes SS, ada diet History of hypertension some low BP readings on dilt drip monitor History of anxiety/depression/schizoaffective disorder Continue home clonazepam/mirtazapine DVT prophylaxis:? Patient on Xarelto, on hold for procedure 12/31/21 Code status:? Full Code.? Patient has MOLST form Attending Dr. Cole Continue hospitalization for Gram-negative bacteremia requiring IV antibiotics and cholecystostomy tube Quality Stroke Does the patient have a stroke diagnosis?: No VTE Prior VTE?: No VTE Risk Level:: Medical - moderate - high VTE Device Contraindication: Treatment Not Indicated VTE Drug Contraindication: N/A - Med Ordered
[2021-12-30] MEDS: Potassium Chloride/H20 10 MEQ/100 ML PIGGYBACK 100 MEQ IV ×2 (09:25→10:40)
[2021-12-30] MEDS: dilTIAZem HCL 125 MG in 0.9 % Sodium Chloride 100 ML 10 MG IVCONT (09:59)
--- NOTE | 2021-12-30 11:00 | P.PNCA_ITS ---
Subjective Subjective Date of Service: 12/30/21 Principal diagnosis: persistent atrial fibrillation, sepsis Interval history: patient does not complain of any cardiac symptoms at current time. Remains in atrial fibrillation borderline rate control. Plan for surgery tomorrow potentially. Review of Systems Review of Systems Yes all other systems are reviewed and are negative Physical Exam Vital Signs: Last Vital Signs Temp 98.0 F 12/30/21 07:50 Pulse 60 12/30/21 07:50 Resp 18 12/30/21 07:50 BP 133/79 12/30/21 07:50 Pulse Ox 95 12/30/21 07:50 O2 Del Method 12/30/21 07:50 O2 Flow Rate 2 12/30/21 07:50 Oxygen Flow Rate 4 12/25/21 13:05 BMI result Body Mass Index 26.8 Const General: cooperative, comfortable, no acute distress, alert and awake Nutritional Appearance: thin Neck Neck: Yes trachea midline and Yes supple Resp Effort & Inspection: decreased respiratory effort Auscultation: clear to auscultation bilaterally Cardio Jugular venous distension: no JVD Rhythm: abnormal rhythm irregularly irregular Heart sounds: S1 normal heart sound present, S2 normal heart sound present, no click, no gallops and no murmurs GI Auscultation: normal bowel sounds Neuro General: no focal motor deficits Extrem General: Yes no clubbing, cyanosis or edema Objective Labs and Meds Result diagrams: 12/26/21 06:53 12/30/21 05:45 Lab results: Laboratory Results - last 24 hr 12/29/21 12/29/21 12/29/21 11:48 12:24 16:13 Sodium 142 Potassium 2.9 L Chloride 107 Carbon Dioxide 25 Anion Gap 13 BUN 13 Creatinine 0.72 Estim Creat Clear Calc 74.9 Estimated GFR > 60 POC Glucose 177 H 142 H Random Glucose 182 H Calcium 7.6 L 12/29/21 12/30/21 12/30/21 20:26 05:45 05:45 Sodium 138 Potassium 2.7 L Chloride 102 Carbon Dioxide 28 Anion Gap 11 L BUN 7 L Creatinine 0.72 0.70 Estim Creat Clear Calc 74.9 77.1 Estimated GFR > 60 > 60 POC Glucose 177 H Random Glucose 219 H Calcium 7.2 L 12/30/21 07:07 Sodium Potassium Chloride Carbon Dioxide Anion Gap BUN Creatinine Estim Creat Clear Calc Estimated GFR POC Glucose 183 H Random Glucose Calcium Progress Note: A&P Assessment and plan (1) Persistent atrial fibrillation: Status: Acute Assessment and Plan: Persistent atrial fibrillation with borderline rate control. Can continue to maximize metoprolol therapy to 50 mg q.6 hours. Continue anticoagulation as per surgical discretion and direction. Resume oral anticoagulation as soon as possible after surgery. Currently optimized to undergo the procedure for perc utaneous drain as planned with intermediate risk. If needed can use IV Cardizem during the surgery to better rate control. Otherwise continue medically to taper and discontinue Cardizem therapy and eventually switch to p.o. metoprolol therapy. Continue treat underlying sepsis and medical/surgical illness. Will sign of the case. Time Spent With Patient Time: Total time spent is greater than 50% in coordination of care (as documented) at patient's floor/unit and/or counseling patient: Progress Note: Quality Stroke Does the patient have a stroke diagnosis?: No Procedures Date of Service Date of Service: 12/30/21
[2021-12-30 11:16] LABS: Glucose, Whole Blood 173 mg/dL (60-115)
[2021-12-30] MEDS: Insulin Lispro 100 UNIT/ML 3 ML VIAL SUBCUT ×2 (11:31→20:02)
--- NOTE | 2021-12-30 11:47 | MHC.CM.PN ---
Per ROUNDS discussion, Patient is not yet medically cleared for dc (Hazel tube tomorrow, IV ABT/ESBL (+));returning to LTC is the goal and CM will continue to follow.
--- NOTE | 2021-12-30 12:59 | MHC.SL.SWA ---
Speech Pathologist Impression:Oropharyngeal dysphagia Risk of Aspiration Due to: Medically Fragile History of Pneumonia Reduced Cognition Dysphasia Diet Status: Continue w/ baseline Liquid Consistency and Strategies for Safe Swallow: Liquid Intake Recommendation: Thin Liquid Intake Strategies: Small Sips No Straws Solid Food Consistency: Dietary Recommendations: Grnd/Mech Altered (NDD2) Additional Modifications to Solid Foods: Continue w/ GROUND/MECH ALTERED (NDD2) diet w/ THIN liquids, CRUSH pills in PUREE. Patient requires 1:1 assistance feeding, ensure aspiration precautions. Patient is tolerating baseline diet- Recommend 1 f/u w/ [facility] [employer]. Oral Medication Intake: Crushed with Puree Please contact the pharmacy regarding appropriate crushable or liquid drug formulations that are available whenever modified delivery is recommended. Compensatory Strategies and Precautions to be Taken for Safe Swallow: Sitting Upright (90 deg) No Straw Small Bites and Sips Alternate Liquids/Solids Rate of Ingestion Change Oral Check Avoid Specific Foods Supervision While Eating and Drinking for Safe Swallow: Total Assistance (1:1) Foods to Avoid: Difficulty to chew solids, sticky consistencies. Swallowing Recommended Treatments: Compens. Strategy Educat. Recommendation for Speech: Inpatient Speech Therapy Nitrator Operator Clinican/Clinical Fellow: No Supervisory Statement: I have reviewed and agree with the student/clinical fellow's documentation: N/A Speech Language Pathologist: Jessica King M.A., [facility]
--- NOTE | 2021-12-30 13:47 | PM.IDPN ---
Subjective Subjective Date of Service: 12/30/21 Critical Care Time (minutes): 15 Comment: she is eating she appears comfortable she has E coli ESBL positive urine,no bacteremia Objective Data Labs CBC & Chem 7: 12/26/21 06:53 12/30/21 05:45 Labs: Laboratory Results - last 24 hr 12/29/21 12/29/21 12/30/21 16:13 20:26 05:45 Sodium 138 Potassium 2.7 L Chloride 102 Carbon Dioxide 28 Anion Gap 11 L BUN 7 L Creatinine 0.72 Estim Creat Clear Calc 74.9 Estimated GFR > 60 POC Glucose 142 H 177 H Random Glucose 219 H Calcium 7.2 L 12/30/21 12/30/21 12/30/21 05:45 07:07 10:58 Sodium Potassium Chloride Carbon Dioxide Anion Gap BUN Creatinine 0.70 Estim Creat Clear Calc 77.1 Estimated GFR > 60 POC Glucose 183 H 173 H Random Glucose Calcium Microbiology Microbiology Results: Microbiology 12/25/21 13:55 Blood - Venous Blood Culture - Final Escherichia coli 12/25/21 13:37 Blood - Venous Blood Culture - Final Escherichia coli Physical Exam Vital Signs: Vital Signs: Last Vital Signs Temp 97.7 F 12/30/21 11:34 Pulse 93 12/30/21 11:34 Resp 18 12/30/21 11:34 BP 104/70 12/30/21 11:34 Pulse Ox 95 12/30/21 11:34 O2 Del Method 12/30/21 11:34 O2 Flow Rate 1.5 12/30/21 11:34 Oxygen Flow Rate 4 12/25/21 13:05 BMI result Body Mass Index 26.8 Const: General: cooperative HEENT: Head: Yes normal to inspection Mouth: Normal oral and palatal mucosa present Resp: Effort & Inspection: normal respiratory effort Cardio: Rate: regular rate Rhythm: regular rhythm GI: Palpation (GI): Soft to palpation and nontender Extrem: General: Yes normal to inspection Assessment and Plan Assessment and plan (1) Acute cholecystitis due to biliary calculus: Problem details: bacteremia due to ESBL E coli this is due to acute cholecystitis patient is on Merem Status: Acute Assessment and Plan: Would continue Merem and change to Ertapenem for total 14 days cholestotomy planned would help eliminate source (2) Bacteremia due to Gram-negative bacteria: Status: Acute Time Spent With Patient Time: Total time spent is greater than 50% in coordination of care (as documented) at patient's floor/unit and/or counseling patient:
--- NOTE | 2021-12-30 13:53 | MHC.CLN ---
F/U PT WITH INCREASE NUTRITION RISK R/T PRESSURE INJURY DIET RX: 1800DM GRD/M/S-APPROPRIATE RECOMMEND ADDING ENSURE BID TO INCREASE KCALS AND PROMOTE WOUND HEALING ENSURE ENLIVE WILL PROVIDE 700KCALS, 40G PROTEIN MONITOR PO INTAKE CLOSELY
[2021-12-30 16:30] LABS: Glucose, Whole Blood 127 mg/dL (60-115)
[2021-12-30 19:36] LABS: Glucose, Whole Blood 212 mg/dL (60-115)
[2021-12-30] MEDS: Metoprolol Tartrate 50 MG TABLET PO (20:01)
[2021-12-30] MEDS: traZODone HCL 50 MG TABLET PO (20:02)
[2021-12-30] MEDS: Pregabalin 100 MG CAPSULE PO (20:02)
[2021-12-30] MEDS: clonazePAM 1 MG TABLET PO (20:02)
[2021-12-30] MEDS: Atorvastatin Calcium 10 MG TABLET PO (20:02)
[2021-12-30] MEDS: Mirtazapine 7.5 MG TABLET PO (20:02)
[2021-12-30] MEDS: Nystatin Cream 15 GM TUBE 1 APPL TOPICAL (20:12)
[2021-12-31] VITALS (8 sets, daily range): BP systolic 128–155; BP diastolic 58–80; PULSE 80–110; RESP 14–32; TEMP 36.2–37.2; O2SAT 96–100; BMI 26.8
[2021-12-31] MEDS: dilTIAZem HCL 125 MG in 0.9 % Sodium Chloride 100 ML IVCONT (02:20)
[2021-12-31] MEDS: Metoprolol Tartrate 50 MG TABLET PO ×2 (02:28→14:05)
[2021-12-31 07:14] LABS: Creatinine Clr Calc Pharmacy 81.8; Estimated Glomerular Filt Rate > 60
[2021-12-31 07:37] LABS: Glucose, Whole Blood 190 mg/dL (60-115)
[2021-12-31 08:08] LABS: Glucose, Whole Blood 181 mg/dL (60-115)
[2021-12-31 09:06] LABS: Monocytes Percent Auto 6.1 % (2-11); Red Cell Distribution Width 13.5 % (11.0-16.0); SCAN SMEAR FLAG 1
[2021-12-31 09:11] LABS: Basophils Percent Auto 0.2 % (0-2); Eosinophils Absolute Auto 0.1 X10*3/uL (0.0-0.4); Eosinophils Percent Auto 0.9 % (0-4); Hemoglobin 9.4 g/dl (12.0-16.0); Imm Gran Abs Auto 0.11 X10*3/uL (0.00-0.03); Imm Gran Pct Auto 1.3 % (0.0-0.4); Lymphocytes Absolute Auto 1.4 X10*3/uL (1.2-4.9); Lymphocytes Percent Auto 15.8 % (20-40); MANUAL DIFF FLAG SCAN; Mean Corpuscular HGB Conc 32.4 g/dl (31.0-35.0); Mean Corpuscular Hemoglobin 30.2 pg (27.0-33.0); Mean Corpuscular Volume 93.2 fL (80.0-98.0); Mean Platelet Volume 11.7 fL (9.4-12.3); Monocytes Absolute Auto 0.5 X10*3/uL (0.1-1.2); Neutrophils Absolute Auto 6.7 x10*3/uL (2.0-8.3); Neutrophils Percent Auto 75.7 % (45-73); Platelet Count 214 X10*3/uL (160-400); Red Blood Count 3.11 X10*6/uL (4.20-5.50); White Blood Count 8.8 X10*3/uL (4.8-10.8)
[2021-12-31 09:12] LABS: INTERNATIONAL NORM RATIO 1.5 (0.9-1.1); Prothrombin Time 17.8 SEC (10.0-13.1)
[2021-12-31 09:26] LABS: SLIDE REVIEW VERIFIED
[2021-12-31 09:32] LABS: Anion Gap 12 (12-20); Blood Urea Nitrogen 6 mg/dL (9-16); Calcium 6.9 mg/dL (8.4-10.2); Carbon Dioxide 28 mmol/L (22-29); Chloride 101 mmol/L (96-108); Estimated Glomerular Filt Rate > 60; Glucose Random 193 mg/dL (60-115); Magnesium 1.1 mg/dL (1.6-2.6); Potassium 2.8 mmol/L (3.3-5.1); Sodium 138 mmol/L (135-145)
[2021-12-31] MEDS: Lidocaine HCl 1 % MPF 5 ML VIAL SUBCUT (11:18)
[2021-12-31] MEDS: Magnesium Sulfate/H2O 2 GM/50 ML PIGGYBACK IV (12:10)
[2021-12-31 12:55] LABS: Glucose, Whole Blood 121 mg/dL (60-115)
--- NOTE | 2021-12-31 12:59 | P.PNIM_ITS ---
Subjective Subjective Date of Service: 12/31/21 Interval History: Seen and examined this afternoon after patient returned from IR Is awake, able to answer basic questions but somewhat sleepy Denies pain but unable to obtain full review of systems Review of Systems Review of Systems: Yes Unobtainable due to mental condition Physical Exam Vital Signs: Vital Signs: Last Vital Signs Temp 98.4 F 12/31/21 11:32 Pulse 103 H 12/31/21 11:32 Resp 32 H 12/31/21 11:32 BP 130/58 L 12/31/21 11:32 Pulse Ox 99 12/31/21 11:32 O2 Del Method 12/31/21 11:32 O2 Flow Rate 2 12/31/21 11:32 Oxygen Flow Rate 4 12/25/21 13:05 BMI result Body Mass Index 26.8 Const: General: comfortable, no acute distress, awake and lethargic Nutritional Appearance: average body habitus Orientation/consciousness: lethargic Resp: Effort & Inspection: normal respiratory effort, not tachypneic and no use of accessory muscles Cardio: Rate: regular rate Heart sounds: S1 normal heart sound present and S2 normal heart sound present GI: Other: Cholecystostomy tube in place was scant output Palpation (GI): Soft to palpation Neuro: Other: difficult to assess, oriented to person; sleepy- just returned from procedure Extrem: General: Yes no pedal edema Objective Data Active Medications Acetaminophen (Acetaminophen 325 Mg Tablet) 650 mg PO Q6H PRN PRN Reason: Pain, Mild (Pain Scale 1-3) Acetaminophen (Acetaminophen Supp 650 Mg Supp.Rect) 650 mg WV Q6H PRN PRN Reason: Fever Last Admin: 12/25/21 20:42 Dose: 650 mg Documented By: AMBROSIO Albuterol Sulfate (Albuterol Sulfate 90 Mcg 8 Gm Inhaler) 2 puff INHALE Q6H PRN PRN Reason: Shortness Of Breath Or Wheezing Atorvastatin Calcium (Atorvastatin Calcium 10 Mg Tablet) 10 mg PO BEDTIME DANELLE Last Admin: 12/30/21 20:02 Dose: 10 mg Documented By: KEITH Bisacodyl (Bisacodyl 10 Mg Supp.Rect) 10 mg WV DAILY PRN PRN Reason: Constipation Dextrose (Dextrose 50 % 25 Gm/50 Ml Syringe) 25 gm IVPUSH Q15M PRN; Protocol PRN Reason: per Hypoglycemia Standing Ord. Escitalopram Oxalate (Escitalopram Oxalate 10 Mg Tablet) 10 mg PO DAILY [facility] Last Admin: 12/31/21 10:17 Dose: Not Given Documented By: RAVI Non-Admin Reason: Off Unit: Surgery Glucose (Glucose Gel 15 Gm Gel..Gram.) 15 gm PO Q15M PRN; Protocol PRN Reason: per Hypoglycemia Standing Ord. Diltiazem HCl 125 mg/ Sodium (Chloride) 125 mls @ 0 mls/hr IVCONT .Q0M [facility]; Protocol Last Admin: 12/31/21 02:20 Dose: 5 mg/hr, 5 mls/hr Documented By: KEITH Potassium Chloride/Dextrose () 20 meq in 1,000 mls @ 100 mls/hr IVCONT .Q10H [facility] Last Admin: 12/31/21 10:16 Dose: Not Given Documented By: RAVI Non-Admin Reason: Off Unit: Surgery Meropenem 1 gm/ Sodium (Chloride) 100 mls @ 200 mls/hr IV Q8H [facility] Last Admin: 12/31/21 12:10 Dose: 200 mls/hr Documented By: RAVI Potassium Chloride () 10 meq in 100 mls @ 100 mls/hr IV Q1H [facility] Stop: 12/31/21 14:44 Insulin Human Lispro (Insulin Lispro 100 Unit/Ml 3 Ml Vial) 0 unit SUBCUT QIDACHS [facility]; Protocol Last Admin: 12/31/21 12:49 Dose: Not Given Documented By: RAVI Non-Admin Reason: No Insulin Coverage Melatonin (Melatonin 3 Mg Tablet) 6 mg PO BEDTIME PRN PRN Reason: Insomnia Metoprolol Tartrate (Metoprolol Tartrate 50 Mg Tablet) 50 mg PO Q6H [facility]; Protocol Last Admin: 12/31/21 10:17 Dose: Not Given Documented By: RAVI Non-Admin Reason: Off Unit: Surgery Mirtazapine (Mirtazapine 7.5 Mg Tablet) 7.5 mg PO BEDTIME [facility] Last Admin: 12/30/21 20:02 Dose: 7.5 mg Documented By: KEITH Multivitamins/Vitamin C (Multivitamin Tablet) 1 tab PO DAILY [facility] Last Admin: 12/31/21 10:17 Dose: Not Given Documented By: RAVI Non-Admin Reason: Off Unit: Surgery Nystatin (Nystatin Cream 15 Gm Tube) 1 appl TOPICAL BID [facility]; Protocol Last Admin: 12/31/21 10:18 Dose: Not Given Documented By: RAVI Non-Admin Reason: Off Unit: Surgery Pharmacy Consult (Consult Rx Perform Med Rec) 1 each MISCELLANE ONCE PRN PRN Reason: Consult order Pharmacy Consult (Consult Rx Vancomycin Dosing) 1 each MISCELLANE DAILY PRN PRN Reason: Consult order Potassium Chloride (Potassium Chloride Er 20 Meq Tab.Er.Prt) 40 meq PO DAILY [facility] Last Admin: 12/31/21 10:17 Dose: Not Given Documented By: RAVI Non-Admin Reason: Off Unit: Surgery Pregabalin (Pregabalin 100 Mg Capsule) 100 mg PO TID [facility] Last Admin: 12/31/21 10:17 Dose: Not Given Documented By: RAVI Non-Admin Reason: Off Unit: Surgery Rivaroxaban (Rivaroxaban 20 Mg Tablet) 20 mg PO DAILY [facility] Last Admin: 12/28/21 08:51 Dose: 20 mg Documented By: RAVI Senna (Sennosides 8.6 Mg Tablet) 17.2 mg PO BEDTIME PRN PRN Reason: Constipation Senna (Sennosides 8.6 Mg Tablet) 17.2 mg PO DAILY PRN PRN Reason: Constipation Sodium Chloride (0.9 % Sodium Chloride Flush 3 Ml Syringe) 3 ml IVFLUSH QSHIFT [facility] Last Admin: 12/31/21 10:17 Dose: Not Given Documented By: RAVI Non-Admin Reason: Off Unit: Surgery Trazodone HCl (Trazodone Hcl 50 Mg Tablet) 50 mg PO BEDTIME [facility] Last Admin: 12/30/21 20:02 Dose: 50 mg Documented By: KEITH Labs CBC & Chem 7: 12/31/21 09:00 12/31/21 09:00 Labs: Laboratory Results - last 24 hr 12/30/21 12/30/21 12/31/21 16:21 19:28 06:04 MCV MCH MCHC RDW Plt Count MPV Immature Gran % (Auto) Neut % (Auto) Lymph % (Auto) [place] % (Auto) Eos % (Auto) Baso % (Auto) Lymph # (Auto) [place] # (Auto) Eos # (Auto) Baso # (Auto) Abs Immat Gran (auto) Absolute Neuts (auto) Absolute Nucleated RBC Nucleated RBC % (auto) Smear Tech's Comments PT INR Anion Gap Estim Creat Clear Calc 81.8 Estimated GFR > 60 POC Glucose 127 H 212 H Random Glucose Calcium Magnesium 12/31/21 12/31/21 12/31/21 07:28 08:03 09:00 MCV 93.2 MCH 30.2 MCHC 32.4 RDW 13.5 Plt Count 214 D MPV 11.7 Immature Gran % (Auto) 1.3 H Neut % (Auto) 75.7 H Lymph % (Auto) 15.8 L [place] % (Auto) 6.1 Eos % (Auto) 0.9 Baso % (Auto) 0.2 Lymph # (Auto) 1.4 [place] # (Auto) 0.5 Eos # (Auto) 0.1 Baso # (Auto) 0.0 Abs Immat Gran (auto) 0.11 H Absolute Neuts (auto) 6.7 Absolute Nucleated RBC 0.000 Nucleated RBC % (auto) 0.0 Smear Tech's Comments VERIFIED PT INR Anion Gap Estim Creat Clear Calc Estimated GFR POC Glucose 190 H 181 H Random Glucose Calcium Magnesium 12/31/21 12/31/21 12/31/21 09:00 09:00 12:48 MCV MCH MCHC RDW Plt Count MPV Immature Gran % (Auto) Neut % (Auto) Lymph % (Auto) [place] % (Auto) Eos % (Auto) Baso % (Auto) Lymph # (Auto) [place] # (Auto) Eos # (Auto) Baso # (Auto) Abs Immat Gran (auto) Absolute Neuts (auto) Absolute Nucleated RBC Nucleated RBC % (auto) Smear Tech's Comments PT 17.8 H INR 1.5 H Anion Gap 12 Estim Creat Clear Calc 76.0 Estimated GFR > 60 POC Glucose 121 H Random Glucose 193 H Calcium 6.9 L Magnesium 1.1 L* Assessment and Plan (1) Acute cholecystitis due to biliary calculus: Status: Acute (2) Persistent atrial fibrillation: Status: Acute Plan 71-year-old female with a past medical history of hypertension, hyperlipidemia, diabetes, CAD, CHF, AFib, anxiety, depression, schizoaffective disorder, history of bilateral lower extremity DVT, asthma, osteoarthritis, dorsalgia, shelter resident; presented to the hospital with a chief complaint of altered mental status.? Noted to have following Acute cholecystitis HIDA scan positive for acute cholecystitis Hold Xarelto for 3 full days Cholecystostomy tube placed by IR 12/31 Surgery follow-up Ecoli Bacteremia ESBL + Secondary to cholecystitis Seen by ID Continue Meropenem - total 14 days AFib with RVR likely from infection continue diltiazem drip down to 5 mg now slow to respond with active gallbaldder issue, once that is corrected this may improve Increase metoprolol to 50mg Q6h Hypernatremia. Resolved likely from hypovolemia treated with D5W and repeat BMP Hypokalemia/hypo magnesemia Replace and follow Follow BMP Toxic metabolic encephalopathy.? secondary to bacteremia baseline confusion CAP, Right lower lobe pneumonia Suspected aspiration.? Switched to meropenem speech evaluation recommend ground diet with thin liquids Aspiration precautions. Transaminitis Likely in setting of sepsis.? Follow LFT. ANABELL. Resolved Likely prerenal.? Hold home diuretics.? Avoid nephrotoxins.? History of HFpEF Hold home Lasix for now.? Monitor for signs of fluid overload. History of diabetes SS, ada diet History of hypertension bp stable on dilt drip Continue metoprolol monitor History of anxiety/depression/schizoaffective disorder Continue home clonazepam/mirtazapine DVT prophylaxis:? Patient on Xarelto, on hold for procedure 12/31/21 Code status:? Full Code.? Patient has MOLST form Attending Dr. Cole Continue hospitalization for Gram-negative bacteremia requiring IV antibiotics and cholecystostomy tube Quality Stroke Does the patient have a stroke diagnosis?: No VTE Prior VTE?: No VTE Risk Level:: Medical - moderate - high VTE Device Contraindication: Treatment Not Indicated VTE Drug Contraindication: N/A - Med Ordered
[2021-12-31] MEDS: Pregabalin 100 MG CAPSULE PO (14:05)
[2021-12-31] MEDS: KCl 20 mEq in 5 % Dextrose 20 MEQ/1,000 ML IV.SOLN 100 MEQ IVCONT (14:07)
[2021-12-31] MEDS: Potassium Chloride/H20 10 MEQ/100 ML PIGGYBACK 100 MEQ IV ×2 (14:08→16:08)
--- NOTE | 2021-12-31 15:27 | MHC.SLORD ---
Speech Language Pathology Order Status: Patient was NPO this morning when attempted to see for Dysphagia [place]. Will re-attempt tomorrow.
[2021-12-31 15:57] LABS: Glucose, Whole Blood 131 mg/dL (60-115)
[2021-12-31] MEDS: 0.9 % Sodium Chloride Flush 3 ML SYRINGE IVFLUSH (16:08)
[2021-12-31 20:22] LABS: Glucose, Whole Blood 171 mg/dL (60-115)
[2021-12-31] MEDS: Nystatin Cream 15 GM TUBE 1 APPL TOPICAL (20:24)
[2021-12-31] MEDS: Insulin Lispro 100 UNIT/ML 3 ML VIAL SUBCUT (22:11)
[2022-01-01] VITALS (8 sets, daily range): BP systolic 108–142; BP diastolic 59–81; PULSE 78–130; RESP 14–20; TEMP 36.3–37.3; O2SAT 95–100
[2022-01-01] MEDS: KCl 20 mEq in 5 % Dextrose 20 MEQ/1,000 ML IV.SOLN 100 MEQ IVCONT (02:45)
[2022-01-01] MEDS: Metoprolol Tartrate 50 MG TABLET PO ×2 (02:47→10:00)
[2022-01-01] MEDS: dilTIAZem HCL 125 MG in 0.9 % Sodium Chloride 100 ML IVCONT (03:05)
[2022-01-01 06:53] LABS: Hematocrit 28.2 % (37.0-47.0); Mean Corpuscular HGB Conc 31.9 g/dl (31.0-35.0); Mean Corpuscular Hemoglobin 30.5 pg (27.0-33.0); Mean Corpuscular Volume 95.6 fL (80.0-98.0); Mean Platelet Volume 11.5 fL (9.4-12.3); Platelet Count 240 X10*3/uL (160-400); Red Blood Count 2.95 X10*6/uL (4.20-5.50); Red Cell Distribution Width 13.3 % (11.0-16.0); White Blood Count 7.1 X10*3/uL (4.8-10.8)
[2022-01-01 07:15] LABS: Glucose, Whole Blood 134 mg/dL (60-115)
[2022-01-01 08:00] LABS: Alanine Aminotransferase 26 U/L (0-31); Albumin Level 2.6 g/dL (3.5-5.0); Alkaline Phosphatase 95 U/L (39-117); Anion Gap 11 (12-20); Aspartate Amino Transferase 13 U/L (5-31); Bilirubin Direct 0.4 mg/dL (0.0-0.5); Bilirubin Total 0.7 mg/dL (0.0-1.0); Blood Urea Nitrogen 4 mg/dL (9-16); Carbon Dioxide 31 mmol/L (22-29); Chloride 100 mmol/L (96-108); Creatinine Clr Calc Pharmacy 85.6; Estimated Glomerular Filt Rate > 60; Glucose Random 156 mg/dL (60-115); Sodium 139 mmol/L (135-145); Total Protein 5.8 g/dL (6.5-8.0)
[2022-01-01 08:21] LABS: Magnesium 1.4 mg/dL (1.6-2.6)
--- NOTE | 2022-01-01 09:53 | PM.PNCARD ---
Subjective Subjective Date of Service: 01/01/22 Principal diagnosis: persistent atrial fibrillation, sepsis Interval history: Patient offers no cardiac complaints and is currently resting. Status post percutaneous drain of her gallbladder. Atrial fibrillation rate is controlled. Off Cardizem drip Review of Systems Review of Systems Yes Unobtainable due to mental status Physical Exam Vital Signs: Last Vital Signs Temp 98.5 F 01/01/22 07:44 Pulse 95 01/01/22 07:44 Resp 20 01/01/22 07:44 BP 123/75 01/01/22 07:44 Pulse Ox 98 01/01/22 07:44 O2 Del Method 01/01/22 07:44 O2 Flow Rate 1 01/01/22 07:44 Oxygen Flow Rate 4 12/25/21 13:05 BMI result Body Mass Index 26.8 Const General: no acute distress Neck Neck: Yes trachea midline and Yes supple Resp Effort & Inspection: decreased respiratory effort Auscultation: clear to auscultation bilaterally Cardio Jugular venous distension: no JVD Rhythm: abnormal rhythm irregularly irregular Heart sounds: S1 normal heart sound present, S2 normal heart sound present, no click, no gallops and no murmurs GI Auscultation: normal bowel sounds Neuro General: no focal motor deficits Extrem General: Yes no clubbing, cyanosis or edema Objective Labs and Meds Result diagrams: 01/01/22 06:24 01/01/22 06:24 Lab results: Laboratory Results - last 24 hr 12/31/21 12/31/21 12/31/21 12:48 15:54 20:19 WBC RBC Hgb Hct MCV MCH MCHC RDW Plt Count MPV Absolute Nucleated RBC Nucleated RBC % (auto) Sodium Potassium Chloride Carbon Dioxide Anion Gap BUN Creatinine Estim Creat Clear Calc Estimated GFR POC Glucose 121 H 131 H 171 H Random Glucose Calcium Magnesium Total Bilirubin Direct Bilirubin AST ALT Alkaline Phosphatase Total Protein Albumin 01/01/22 01/01/22 01/01/22 06:24 06:24 07:11 WBC 7.1 RBC 2.95 L Hgb 9.0 L Hct 28.2 L MCV 95.6 MCH 30.5 MCHC 31.9 RDW 13.3 Plt Count 240 MPV 11.5 Absolute Nucleated RBC 0.000 Nucleated RBC % (auto) 0.0 Sodium 139 Potassium 3.0 L Chloride 100 Carbon Dioxide 31 H Anion Gap 11 L BUN 4 L Creatinine 0.63 Estim Creat Clear Calc 85.6 Estimated GFR > 60 POC Glucose 134 H Random Glucose 156 H Calcium 7.0 L Magnesium 1.4 L* Total Bilirubin 0.7 Direct Bilirubin 0.4 AST 13 D ALT 26 Alkaline Phosphatase 95 D Total Protein 5.8 L Albumin 2.6 L Progress Note: A&P Assessment and plan (1) Persistent atrial fibrillation: Status: Acute Assessment and Plan: persistent rate control atrial fibrillation. Can switch to metoprolol 100 mg b.i.d. and continue the same. P.r.n. Cardizem. Continue treat her underlying medical/ surgical illness. Please resume oral anticoagulation therapy once surgically optimized and cleared. Will sign of the case. Thank you for allowing us to partake in her care Time Spent With Patient Time: Total time spent is greater than 50% in coordination of care (as documented) at patient's floor/unit and/or counseling patient: Progress Note: Quality Stroke Does the patient have a stroke diagnosis?: No Procedures Date of Service Date of Service: 01/01/22
[2022-01-01] MEDS: Multivitamin TABLET 1 TAB PO (10:00)
[2022-01-01] MEDS: Potassium Chloride ER 20 MEQ TAB.ER.PRT 40 MEQ PO (10:00)
[2022-01-01] MEDS: 0.9 % Sodium Chloride Flush 3 ML SYRINGE IVFLUSH ×3 (10:01→20:43)
[2022-01-01] MEDS: Nystatin Cream 15 GM TUBE 1 APPL TOPICAL (10:01)
[2022-01-01 11:46] LABS: Glucose, Whole Blood 142 mg/dL (60-115)
--- NOTE | 2022-01-01 12:07 | MHC.CM.PN ---
Female 76 DX Sepsis CBD drain placement Per MD rounds Patient will dc on IV ABX Ertepenum. [facility] her LTC facility has been notified of the IV ABX services needed. They are able to perform the IV administration upon dc. A Clinical update has been sent. Patient will transport via BLS.
--- NOTE | 2022-01-01 13:05 | MHC.SLORD ---
Speech Language Pathology Order Status: Attempted to see pt for PO trials this morning- Pt refused to participate. Pt is on [facility] altered diet (NDD2) with thin liquids. GLASS TECHNOLOGIST will continue to follow.
--- NOTE | 2022-01-01 13:07 | MHC.SLORD ---
Speech Language Pathology Order Status: Received order for bedside dysphagia evaluation. Attempted to see pt at 11am this morning. Patient sleeping, not waking to sternal rub. Not appropriate for PO trials d/t lethargic state.
--- NOTE | 2022-01-01 14:29 | P.PNIM_ITS ---
Subjective Subjective Date of Service: 01/01/22 Interval History: seen and examined this morning follow up for bacteremia shakes head to answer yes and no unable to obtain full ROS Review of Systems Review of Systems: Yes Unobtainable due to mental condition Physical Exam Vital Signs: Vital Signs: Last Vital Signs Temp 98.3 F 01/01/22 11:10 Pulse 92 01/01/22 11:10 Resp 16 01/01/22 11:10 BP 108/59 L 01/01/22 11:10 Pulse Ox 97 01/01/22 11:10 O2 Del Method 01/01/22 11:10 O2 Flow Rate 1 01/01/22 07:44 Oxygen Flow Rate 4 12/25/21 13:05 BMI result Body Mass Index 26.8 Const: General: comfortable, no acute distress, awake and lethargic Nutritional Appearance: average body habitus Orientation/consciousness: lethargic Resp: Effort & Inspection: normal respiratory effort, not tachypneic and no use of accessory muscles Cardio: Rate: regular rate Heart sounds: S1 normal heart sound present and S2 normal heart sound present GI: Other: Cholecystostomy tube in place was scant output Palpation (GI): Soft to palpation Neuro: Other: difficult to assess, oriented to person; sleepy- just returned from procedure Extrem: General: Yes no pedal edema Objective Data Active Medications Acetaminophen (Acetaminophen 325 Mg Tablet) 650 mg PO Q6H PRN PRN Reason: Pain, Mild (Pain Scale 1-3) Acetaminophen (Acetaminophen Supp 650 Mg Supp.Rect) 650 mg WV Q6H PRN PRN Reason: Fever Last Admin: 12/25/21 20:42 Dose: 650 mg Documented By: AMBROSIO Albuterol Sulfate (Albuterol Sulfate 90 Mcg 8 Gm Inhaler) 2 puff INHALE Q6H PRN PRN Reason: Shortness Of Breath Or Wheezing Atorvastatin Calcium (Atorvastatin Calcium 10 Mg Tablet) 10 mg PO BEDTIME DANELLE Last Admin: 12/31/21 23:31 Dose: Not Given Documented By: DONYA Non-Admin Reason: Patient Refused Bisacodyl (Bisacodyl 10 Mg Supp.Rect) 10 mg WV DAILY PRN PRN Reason: Constipation Dextrose (Dextrose 50 % 25 Gm/50 Ml Syringe) 25 gm IVPUSH Q15M PRN; Protocol PRN Reason: per Hypoglycemia Standing Ord. Escitalopram Oxalate (Escitalopram Oxalate 10 Mg Tablet) 10 mg PO DAILY COUNTS INCLUDE 234 BEDS AT THE [facility] Last Admin: 12/31/21 10:17 Dose: Not Given Documented By: RAVI Non-Admin Reason: Off Unit: Surgery Glucose (Glucose Gel 15 Gm Gel..Gram.) 15 gm PO Q15M PRN; Protocol PRN Reason: per Hypoglycemia Standing Ord. Diltiazem HCl 125 mg/ Sodium (Chloride) 125 mls @ 0 mls/hr IVCONT .Q0M COUNTS INCLUDE 234 BEDS AT THE [facility]; Protocol Last Titration: 01/01/22 04:03 Dose: 0 mg/hr, 0 mls/hr Documented By: DONYA Meropenem 1 gm/ Sodium (Chloride) 100 mls @ 200 mls/hr IV Q8H COUNTS INCLUDE 234 BEDS AT THE [facility] Last Infusion: 01/01/22 11:11 Dose: 0 mls/hr Documented By: LIEN Insulin Human Lispro (Insulin Lispro 100 Unit/Ml 3 Ml Vial) 0 unit SUBCUT QIDACHS COUNTS INCLUDE 234 BEDS AT THE [facility]; Protocol Last Admin: 01/01/22 12:05 Dose: Not Given Documented By: LIEN Non-Admin Reason: No Insulin Coverage Melatonin (Melatonin 3 Mg Tablet) 6 mg PO BEDTIME PRN PRN Reason: Insomnia Metoprolol Tartrate (Metoprolol Tartrate 100 Mg Tablet) 100 mg PO BID COUNTS INCLUDE 234 BEDS AT THE [facility]; Protocol Mirtazapine (Mirtazapine 7.5 Mg Tablet) 7.5 mg PO BEDTIME COUNTS INCLUDE 234 BEDS AT THE [facility] Last Admin: 12/31/21 23:31 Dose: Not Given Documented By: DONYA Non-Admin Reason: Patient Refused Multivitamins/Vitamin C (Multivitamin Tablet) 1 tab PO DAILY COUNTS INCLUDE 234 BEDS AT THE [facility] Last Admin: 01/01/22 10:00 Dose: 1 tab Documented By: LIEN Nystatin (Nystatin Cream 15 Gm Tube) 1 appl TOPICAL BID COUNTS INCLUDE 234 BEDS AT THE [facility]; Protocol Last Admin: 01/01/22 10:01 Dose: 1 appl Documented By: LIEN Pharmacy Consult (Consult Rx Perform Med Rec) 1 each MISCELLANE ONCE PRN PRN Reason: Consult order Pharmacy Consult (Consult Rx Vancomycin Dosing) 1 each MISCELLANE DAILY PRN PRN Reason: Consult order Potassium Chloride (Potassium Chloride Er 20 Meq Tab.Er.Prt) 40 meq PO DAILY COUNTS INCLUDE 234 BEDS AT THE [facility] Last Admin: 01/01/22 10:00 Dose: 40 meq Documented By: LIEN Pregabalin (Pregabalin 100 Mg Capsule) 100 mg PO TID COUNTS INCLUDE 234 BEDS AT THE [facility] Last Admin: 01/01/22 11:11 Dose: Not Given Documented By: LIEN Non-Admin Reason: Patient Refused Rivaroxaban (Rivaroxaban 20 Mg Tablet) 20 mg PO DAILY COUNTS INCLUDE 234 BEDS AT THE [facility] Last Admin: 12/28/21 08:51 Dose: 20 mg Documented By: SISSYENOAL Senna (Sennosides 8.6 Mg Tablet) 17.2 mg PO BEDTIME PRN PRN Reason: Constipation Senna (Sennosides 8.6 Mg Tablet) 17.2 mg PO DAILY PRN PRN Reason: Constipation Sodium Chloride (0.9 % Sodium Chloride Flush 3 Ml Syringe) 3 ml IVFLUSH QSHIFT COUNTS INCLUDE 234 BEDS AT THE [facility] Last Admin: 01/01/22 10:01 Dose: 3 ml Documented By: LIEN Trazodone HCl (Trazodone Hcl 50 Mg Tablet) 50 mg PO BEDTIME COUNTS INCLUDE 234 BEDS AT THE [facility] Last Admin: 12/31/21 23:31 Dose: Not Given Documented By: DONYA Non-Admin Reason: Patient Refused Labs CBC & Chem 7: 01/01/22 06:24 01/01/22 06:24 Labs: Laboratory Results - last 24 hr 12/31/21 12/31/21 01/01/22 15:54 20:19 06:24 MCV 95.6 MCH 30.5 MCHC 31.9 RDW 13.3 Plt Count 240 MPV 11.5 Absolute Nucleated RBC 0.000 Nucleated RBC % (auto) 0.0 Anion Gap Estim Creat Clear Calc Estimated GFR POC Glucose 131 H 171 H Random Glucose Calcium Magnesium Total Bilirubin Direct Bilirubin AST ALT Alkaline Phosphatase Total Protein Albumin 01/01/22 01/01/22 01/01/22 06:24 07:11 11:42 MCV MCH MCHC RDW Plt Count MPV Absolute Nucleated RBC Nucleated RBC % (auto) Anion Gap 11 L Estim Creat Clear Calc 85.6 Estimated GFR > 60 POC Glucose 134 H 142 H Random Glucose 156 H Calcium 7.0 L Magnesium 1.4 L* Total Bilirubin 0.7 Direct Bilirubin 0.4 AST 13 D ALT 26 Alkaline Phosphatase 95 D Total Protein 5.8 L Albumin 2.6 L Assessment and Plan (1) Acute cholecystitis due to biliary calculus: Status: Acute (2) Persistent atrial fibrillation: Status: Acute (3) Bacteremia due to Gram-negative bacteria: Status: Acute Plan 71-year-old female with a past medical history of hypertension, hyperlipidemia, diabetes, CAD, CHF, AFib, anxiety, depression, schizoaffective disorder, history of bilateral lower extremity DVT, asthma, osteoarthritis, dorsalgia, [facility] resident; presented to the hospital with a chief complaint of altered mental status.? Noted to have following Acute cholecystitis HIDA scan positive for acute cholecystitis Cholecystostomy tube placed by IR 12/31 Ecoli Bacteremia ESBL + Secondary to cholecystitis Seen by ID Continue Meropenem - total 14 days - end date 01/13 PICC ordered AFib with RVR likely from infection HR improved weaned off diltiazem drip transition metorprolol to 100 bid cardiology following xarelto resumed Hypokalemia/hypo magnesemia still low Replace and follow Follow BMP Toxic metabolic encephalopathy.? secondary to bacteremia baseline confusion Hypernatremia. Resolved likely from hypovolemia treated with D5W and repeat BMP CAP, Right lower lobe pneumonia Suspected aspiration.? Switched to meropenem speech evaluation recommend ground diet with thin liquids Aspiration precautions. Transaminitis Likely in setting of sepsis/cholecystitis LFTs back to normal ANABELL. Resolved Likely prerenal.? Hold home diuretics.? Avoid nephrotoxins.? History of HFpEF Hold home Lasix for now.? Monitor for signs of fluid overload. History of diabetes SS, ada diet History of hypertension bp stable Continue metoprolol monitor History of anxiety/depression/schizoaffective disorder Continue home clonazepam/mirtazapine DVT prophylaxis:? Xarelto resumed Code status:? Full Code.? Patient has MOLST form Attending Dr. Cole dispo - to return to [facility] with PICC to complete abx when medically stable Continue hospitalization for Gram-negative bacteremia requiring IV antibiotics and cholecystostomy tube Quality Stroke Does the patient have a stroke diagnosis?: No VTE Prior VTE?: No VTE Risk Level:: Medical - moderate - high VTE Device Contraindication: Treatment Not Indicated VTE Drug Contraindication: N/A - Med Ordered
[2022-01-01 16:37] LABS: Glucose, Whole Blood 139 mg/dL (60-115)
[2022-01-01] MEDS: Potassium Chloride Packet 20 MEQ PACKET 40 MEQ PO (16:39)
[2022-01-01] MEDS: Rivaroxaban 20 MG TABLET PO (16:39)
[2022-01-01] MEDS: Pregabalin 100 MG CAPSULE PO ×2 (16:39→20:42)
--- NOTE | 2022-01-01 16:39 | HO.MIDLINE_ITS ---
Midline Insertion MIDLINE INSERTION Diagnosis: [ESBL infection] Indication: [director long term care antibiotics] Pertinent Labs: [reviewed] Technique: Using sterile technique including cap and mask, glove and drape, the [RIGHT] arm was prepped and draped in the usual sterile fashion of full barrier technique with CHG. Using ultrasound guidance, [Right Basilic] vein access was obtained [in single attempt by this RN]. Single lumen Non PASV 20 gauge by 8 cm midline was positioned. The procedure was performed in [471]. Ultrasound was used to document vein patency and for needle entry. A formal ultrasound picture was recorded. Vascular Junk Removal Specialist has released the line for use and it is currently dressed with a StatLock, Tegaderm, and CHG disc. Verification has been performed for blood return and line patency. Arm Circumference: [35 cm] Equipment: [LIFEmee Powerglide pro] Catheter Type: [Single lumen Non PASV 20 gauge by 8 cm Powerglide Pro] Lot #: [[id number]]
[2022-01-01] MEDS: Magnesium Sulfate/H2O 2 GM/50 ML PIGGYBACK IV (17:34)
[2022-01-01 19:37] LABS: Glucose, Whole Blood 164 mg/dL (60-115)
--- NOTE | 2022-01-01 20:06 | PC.NURSE ---
1900 ALEC drain patent, draining pink clear fluid. Midline right UE patent. Appetite poor. 1730 HR 140's PA made aware. Will order cardizem gtt.
[2022-01-01] MEDS: dilTIAZem HCL 125 MG in 0.9 % Sodium Chloride 100 ML 10 MG IVCONT (20:36)
[2022-01-01] MEDS: Insulin Lispro 100 UNIT/ML 3 ML VIAL SUBCUT (20:37)
[2022-01-01] MEDS: Metoprolol Tartrate 100 MG TABLET PO (20:42)
[2022-01-01] MEDS: traZODone HCL 50 MG TABLET PO (20:42)
[2022-01-01] MEDS: Atorvastatin Calcium 10 MG TABLET PO (20:43)
[2022-01-02] VITALS: BP 109/64; PULSE 81; RESP 18; TEMP 36.2; O2SAT 97
[2022-01-02 03:47] VITALS: BP 113/72; PULSE 90; RESP 18; TEMP 36.1; O2SAT 95
[2022-01-02 06:56] LABS: Anion Gap 13 (12-20); Blood Urea Nitrogen 6 mg/dL (9-16); Calcium 7.3 mg/dL (8.4-10.2); Carbon Dioxide 27 mmol/L (22-29); Chloride 101 mmol/L (96-108); Estimated Glomerular Filt Rate > 60; Glucose Random 124 mg/dL (60-115); Magnesium 1.7 mg/dL (1.6-2.6); Potassium 3.5 mmol/L (3.3-5.1); Sodium 137 mmol/L (135-145)
[2022-01-02 07:23] LABS: Glucose, Whole Blood 117 mg/dL (60-115)
[2022-01-02 07:48] VITALS: BP 126/75; PULSE 89; RESP 18; TEMP 36.3; O2SAT 94
[2022-01-02] MEDS: Multivitamin TABLET 1 TAB PO (09:34)
[2022-01-02] MEDS: 0.9 % Sodium Chloride Flush 3 ML SYRINGE IVFLUSH ×2 (09:34→15:41)
[2022-01-02] MEDS: Rivaroxaban 20 MG TABLET PO (09:35)
[2022-01-02] MEDS: Metoprolol Tartrate 100 MG TABLET PO (09:35)
[2022-01-02] MEDS: Potassium Chloride ER 20 MEQ TAB.ER.PRT 40 MEQ PO (09:35)
[2022-01-02] MEDS: Escitalopram Oxalate 10 MG TABLET PO (09:35)
[2022-01-02] MEDS: Pregabalin 100 MG CAPSULE PO ×3 (09:35→21:48)
[2022-01-02] MEDS: Nystatin Cream 15 GM TUBE 1 APPL TOPICAL ×2 (09:36→21:49)
[2022-01-02] MEDS: dilTIAZem HCL 125 MG in 0.9 % Sodium Chloride 100 ML IVCONT (10:01)
[2022-01-02 10:55] LABS: Glucose, Whole Blood 183 mg/dL (60-115)
[2022-01-02 11:31] VITALS: BP 107/57; PULSE 71; RESP 20; TEMP 36.1; O2SAT 95
[2022-01-02] MEDS: Insulin Lispro 100 UNIT/ML 3 ML VIAL SUBCUT (11:46)
[2022-01-02 15:23] LABS: Glucose, Whole Blood 109 mg/dL (60-115)
[2022-01-02 16:00] VITALS: BP 101/75; PULSE 90; RESP 18; TEMP 36.4; O2SAT 95
--- NOTE | 2022-01-02 16:45 | P.PNIM_ITS ---
Subjective Subjective Date of Service: 01/02/22 Interval History: seen and examined this morning follow up for afib, cholecystitis, bacteremia more awake this morning. able to answer yes or no questions Review of Systems Review of Systems: Yes Unobtainable due to mental condition Physical Exam Vital Signs: Vital Signs: Last Vital Signs Temp 97.6 F 01/02/22 16:00 Pulse 90 01/02/22 16:00 Resp 18 01/02/22 16:00 BP 101/75 01/02/22 16:00 Pulse Ox 95 01/02/22 16:00 O2 Del Method 01/02/22 16:00 O2 Flow Rate 1 01/01/22 07:44 Oxygen Flow Rate 4 12/25/21 13:05 BMI result Body Mass Index 26.8 Const: General: comfortable, no acute distress, alert and awake Nutritional Appearance: average body habitus Resp: Effort & Inspection: normal respiratory effort, not tachypneic and no use of accessory muscles Cardio: Rate: regular rate Heart sounds: S1 normal heart sound present and S2 normal heart sound present GI: Other: Cholecystostomy tube in place was scant output Palpation (GI): Soft to palpation Extrem: General: Yes no pedal edema Objective Data Active Medications Acetaminophen (Acetaminophen 325 Mg Tablet) 650 mg PO Q6H PRN PRN Reason: Pain, Mild (Pain Scale 1-3) Acetaminophen (Acetaminophen Supp 650 Mg Supp.Rect) 650 mg [place] Q6H PRN PRN Reason: Fever Last Admin: 12/25/21 20:42 Dose: 650 mg Documented By: AMBROSIO Albuterol Sulfate (Albuterol Sulfate 90 Mcg 8 Gm Inhaler) 2 puff INHALE Q6H PRN PRN Reason: Shortness Of Breath Or Wheezing Atorvastatin Calcium (Atorvastatin Calcium 10 Mg Tablet) 10 mg PO BEDTIME [facility] Last Admin: 01/01/22 20:43 Dose: 10 mg Documented By: KAROLINE Bisacodyl (Bisacodyl 10 Mg Supp.Rect) 10 mg [place] DAILY PRN PRN Reason: Constipation Dextrose (Dextrose 50 % 25 Gm/50 Ml Syringe) 25 gm IVPUSH Q15M PRN; Protocol PRN Reason: per Hypoglycemia Standing Ord. Escitalopram Oxalate (Escitalopram Oxalate 10 Mg Tablet) 10 mg PO DAILY [facility] Last Admin: 01/02/22 09:35 Dose: 10 mg Documented By: FRAN Glucose (Glucose Gel 15 Gm Gel..Gram.) 15 gm PO Q15M PRN; Protocol PRN Reason: per Hypoglycemia Standing Ord. Meropenem 1 gm/ Sodium (Chloride) 100 mls @ 200 mls/hr IV Q8H [facility] Last Admin: 01/02/22 16:35 Dose: 200 mls/hr Documented By: FRAN Diltiazem HCl 125 mg/ Sodium (Chloride) 125 mls @ 0 mls/hr IVCONT .Q0M [facility]; Protocol Last Admin: 01/02/22 10:01 Dose: 5 mg/hr, 5 mls/hr Documented By: FRAN Insulin Human Lispro (Insulin Lispro 100 Unit/Ml 3 Ml Vial) 0 unit SUBCUT QIDACHS [facility]; Protocol Last Admin: 01/02/22 16:25 Dose: Not Given Documented By: FRAN Non-Admin Reason: No Insulin Coverage Melatonin (Melatonin 3 Mg Tablet) 6 mg PO BEDTIME PRN PRN Reason: Insomnia Metoprolol Tartrate (Metoprolol Tartrate 100 Mg Tablet) 100 mg PO BID [facility]; Protocol Last Admin: 01/02/22 09:35 Dose: 100 mg Documented By: FRAN Mirtazapine (Mirtazapine 7.5 Mg Tablet) 7.5 mg PO BEDTIME [facility] Last Admin: 01/01/22 20:42 Dose: 7.5 mg Documented By: KAROLINE Multivitamins/Vitamin C (Multivitamin Tablet) 1 tab PO DAILY [facility] Last Admin: 01/02/22 09:34 Dose: 1 tab Documented By: FRAN Nystatin (Nystatin Cream 15 Gm Tube) 1 appl TOPICAL BID [facility]; Protocol Last Admin: 01/02/22 09:36 Dose: 1 appl Documented By: FRAN Pharmacy Consult (Consult Rx Perform Med Rec) 1 each MISCELLANE ONCE PRN PRN Reason: Consult order Potassium Chloride (Potassium Chloride Er 20 Meq Tab.Er.Prt) 40 meq PO DAILY [facility] Last Admin: 01/02/22 09:35 Dose: 40 meq Documented By: FRAN Pregabalin (Pregabalin 100 Mg Capsule) 100 mg PO TID [facility] Last Admin: 01/02/22 15:40 Dose: 100 mg Documented By: FRAN Rivaroxaban (Rivaroxaban 20 Mg Tablet) 20 mg PO DAILY [facility] Last Admin: 01/02/22 09:35 Dose: 20 mg Documented By: FRAN Senna (Sennosides 8.6 Mg Tablet) 17.2 mg PO BEDTIME PRN PRN Reason: Constipation Senna (Sennosides 8.6 Mg Tablet) 17.2 mg PO DAILY PRN PRN Reason: Constipation Sodium Chloride (0.9 % Sodium Chloride Flush 3 Ml Syringe) 3 ml IVFLUSH QSHIFT [facility] Last Admin: 01/02/22 15:41 Dose: 3 ml Documented By: FRAN Trazodone HCl (Trazodone Hcl 50 Mg Tablet) 50 mg PO BEDTIME [facility] Last Admin: 01/01/22 20:42 Dose: 50 mg Documented By: KAROLINE Labs CBC & Chem 7: 01/01/22 06:24 01/02/22 06:10 Labs: Laboratory Results - last 24 hr 01/01/22 01/02/22 01/02/22 19:31 06:10 07:15 Anion Gap 13 Estim Creat Clear Calc 87.0 Estimated GFR > 60 POC Glucose 164 H 117 H Random Glucose 124 H Calcium 7.3 L Magnesium 1.7 01/02/22 01/02/22 10:50 15:10 Anion Gap Estim Creat Clear Calc Estimated GFR POC Glucose 183 H 109 Random Glucose Calcium Magnesium Assessment and Plan (1) Acute cholecystitis due to biliary calculus: Status: Acute (2) Bacteremia due to Gram-negative bacteria: Status: Acute (3) Persistent atrial fibrillation: Status: Acute Plan 71-year-old female with a past medical history of hypertension, hyperlipidemia, diabetes, CAD, CHF, AFib, anxiety, depression, schizoaffective disorder, history of bilateral lower extremity DVT, asthma, osteoarthritis, dorsalgia, [place] [facility] resident; presented to the hospital with a chief complaint of altered mental status.? Noted to have following Acute cholecystitis HIDA scan positive for acute cholecystitis Cholecystostomy tube placed by IR 12/31 Ecoli Bacteremia ESBL + Secondary to cholecystitis Seen by ID Continue Meropenem - total 14 days - end date 01/13 midline placed 01/01 AFib with RVR back on cardizem drip continue metoprolol 100 bid cardiology following xarelto resumed Hypokalemia/hypo magnesemia improved Follow BMP Toxic metabolic encephalopathy.? secondary to bacteremia baseline confusion Hypernatremia. Resolved likely from hypovolemia treated with D5W and repeat BMP CAP, Right lower lobe pneumonia Suspected aspiration.? continue meropenem speech evaluation recommend ground diet with thin liquids Aspiration precautions. Transaminitis Likely in setting of sepsis/cholecystitis LFTs back to normal ANABELL. Resolved Likely prerenal.? Hold home diuretics.? Avoid nephrotoxins.? History of HFpEF Hold home Lasix for now.? Monitor for signs of fluid overload. History of diabetes SS, ada diet History of hypertension bp stable Continue metoprolol monitor History of anxiety/depression/schizoaffective disorder Continue home clonazepam/mirtazapine DVT prophylaxis:? Xarelto resumed Code status:? Full Code.? Patient has MOLST form Attending Dr. Cole dispo - to return to [facility] with PICC to complete abx when medically stable Continue hospitalization for Gram-negative bacteremia requiring IV antibiotics and cholecystostomy tube Quality Stroke Does the patient have a stroke diagnosis?: No VTE Prior VTE?: No VTE Risk Level:: Medical - moderate - high VTE Device Contraindication: Treatment Not Indicated VTE Drug Contraindication: N/A - Med Ordered
[2022-01-02] MEDS: Magnesium Sulfate/D5W 1 GM/100 ML PIGGYBACK IV (17:18)
[2022-01-02 19:53] LABS: Glucose, Whole Blood 117 mg/dL (60-115)
[2022-01-02 20:00] VITALS: BP 112/64; PULSE 92; RESP 18; TEMP 36.6; O2SAT 98
[2022-01-02] MEDS: Atorvastatin Calcium 10 MG TABLET PO (21:48)
[2022-01-03] VITALS: BP 132/68; PULSE 82; RESP 16; TEMP 37.2; O2SAT 95
[2022-01-03 04:00] VITALS: BP 140/81; PULSE 89; RESP 20; TEMP 37.1; O2SAT 100
[2022-01-03 07:18] LABS: Anion Gap 14 (12-20); Blood Urea Nitrogen 5 mg/dL (9-16); Calcium 7.8 mg/dL (8.4-10.2); Carbon Dioxide 29 mmol/L (22-29); Chloride 101 mmol/L (96-108); Estimated Glomerular Filt Rate > 60; Glucose Random 116 mg/dL (60-115); Magnesium 1.6 mg/dL (1.6-2.6); Potassium 3.6 mmol/L (3.3-5.1); Sodium 140 mmol/L (135-145)
[2022-01-03 07:51] LABS: Glucose, Whole Blood 102 mg/dL (60-115)
[2022-01-03 08:00] VITALS: BP 150/80; PULSE 92; RESP 19; TEMP 36.1; O2SAT 96
[2022-01-03] MEDS: Rivaroxaban 20 MG TABLET PO (09:14)
[2022-01-03] MEDS: Pregabalin 100 MG CAPSULE PO ×2 (09:14→22:09)
[2022-01-03] MEDS: Escitalopram Oxalate 10 MG TABLET PO (09:14)
[2022-01-03] MEDS: Multivitamin TABLET 1 TAB PO (09:14)
[2022-01-03] MEDS: Metoprolol Tartrate 100 MG TABLET PO ×2 (09:14→22:09)
[2022-01-03] MEDS: 0.9 % Sodium Chloride Flush 3 ML SYRINGE IVFLUSH ×3 (09:15→22:11)
[2022-01-03] MEDS: Nystatin Cream 15 GM TUBE 1 APPL TOPICAL ×2 (09:15→22:10)
[2022-01-03 11:33] LABS: Glucose, Whole Blood 131 mg/dL (60-115)
[2022-01-03 12:00] VITALS: BP 108/78; PULSE 85; RESP 19; TEMP 37.1; O2SAT 95
--- NOTE | 2022-01-03 14:24 | HO.PM.IMPN ---
Subjective Subjective Date of Service: 01/03/22 Interval History: seen and examined follow up for cholecystitis no significant change, awake, alert, answering yes or no questions denies pain Review of Systems Review of Systems: Yes all other systems are reviewed and are negative Constitutional Constitutional: Denies chills and Denies fever(s) Cardiovascular Cardiovascular: Denies chest pain, Denies palpitations and Denies dyspnea Respiratory Respiratory: Denies cough and Denies dyspnea Gastrointestinal Gastrointestinal: Denies abdominal pain Endocrine Endocrine: Denies palpitations Physical Exam Vital Signs: Vital Signs: Last Vital Signs Temp 98.8 F 01/03/22 12:00 Pulse 85 01/03/22 12:00 Resp 19 01/03/22 12:00 BP 108/78 01/03/22 12:00 Pulse Ox 95 01/03/22 12:00 O2 Del Method 01/03/22 12:00 O2 Flow Rate 1 01/01/22 07:44 Oxygen Flow Rate 4 12/25/21 13:05 BMI result Body Mass Index 26.8 Const: General: comfortable, no acute distress, alert, awake and lethargic Nutritional Appearance: average body habitus Orientation/consciousness: lethargic Resp: Effort & Inspection: normal respiratory effort, not tachypneic and no use of accessory muscles Cardio: Rate: regular rate Rhythm: abnormal rhythm irregularly irregular GI: Other: Cholecystostomy tube in place was scant output Inspection: No distended Palpation (GI): Soft to palpation and nontender Neuro: Other: difficult to assess orientation as minimally verbal at baseline. awake, alert Extrem: Other: trace edema b/l Objective Data Active Medications Acetaminophen (Acetaminophen 325 Mg Tablet) 650 mg PO Q6H PRN PRN Reason: Pain, Mild (Pain Scale 1-3) Acetaminophen (Acetaminophen Supp 650 Mg Supp.Rect) 650 mg [place] Q6H PRN PRN Reason: Fever Last Admin: 12/25/21 20:42 Dose: 650 mg Documented By: AMBROSIO Albuterol Sulfate (Albuterol Sulfate 90 Mcg 8 Gm Inhaler) 2 puff INHALE Q6H PRN PRN Reason: Shortness Of Breath Or Wheezing Atorvastatin Calcium (Atorvastatin Calcium 10 Mg Tablet) 10 mg PO BEDTIME [facility] Last Admin: 01/02/22 21:48 Dose: 10 mg Documented By: ROBERTA Bisacodyl (Bisacodyl 10 Mg Supp.Rect) 10 mg [place] DAILY PRN PRN Reason: Constipation Dextrose (Dextrose 50 % 25 Gm/50 Ml Syringe) 25 gm IVPUSH Q15M PRN; Protocol PRN Reason: per Hypoglycemia Standing Ord. Escitalopram Oxalate (Escitalopram Oxalate 10 Mg Tablet) 10 mg PO DAILY [facility] Last Admin: 01/03/22 09:14 Dose: 10 mg Documented By: FRAN Glucose (Glucose Gel 15 Gm Gel..Gram.) 15 gm PO Q15M PRN; Protocol PRN Reason: per Hypoglycemia Standing Ord. Meropenem 1 gm/ Sodium (Chloride) 100 mls @ 200 mls/hr IV Q8H [facility] Last Infusion: 01/03/22 10:58 Dose: 0 mls/hr Documented By: FRAN Diltiazem HCl 125 mg/ Sodium (Chloride) 125 mls @ 0 mls/hr IVCONT .Q0M [facility]; Protocol Last Titration: 01/03/22 10:59 Dose: 0 mg/hr, 0 mls/hr Documented By: FRAN Insulin Human Lispro (Insulin Lispro 100 Unit/Ml 3 Ml Vial) 0 unit SUBCUT QIDACHS [facility]; Protocol Last Admin: 01/03/22 11:31 Dose: Not Given Documented By: FRAN Non-Admin Reason: No Insulin Coverage Melatonin (Melatonin 3 Mg Tablet) 6 mg PO BEDTIME PRN PRN Reason: Insomnia Metoprolol Tartrate (Metoprolol Tartrate 100 Mg Tablet) 100 mg PO BID [facility]; Protocol Last Admin: 01/03/22 09:14 Dose: 100 mg Documented By: FRAN Mirtazapine (Mirtazapine 7.5 Mg Tablet) 7.5 mg PO BEDTIME [facility] Last Admin: 01/02/22 21:57 Dose: Not Given Documented By: ROBERTA Non-Admin Reason: Patient Refused Multivitamins/Vitamin C (Multivitamin Tablet) 1 tab PO DAILY [facility] Last Admin: 01/03/22 09:14 Dose: 1 tab Documented By: FRAN Nystatin (Nystatin Cream 15 Gm Tube) 1 appl TOPICAL BID [facility]; Protocol Last Admin: 01/03/22 09:15 Dose: 1 appl Documented By: FRAN Pharmacy Consult (Consult Rx Perform Med Rec) 1 each MISCELLANE ONCE PRN PRN Reason: Consult order Potassium Chloride (Potassium Chloride Er 20 Meq Tab.Er.Prt) 40 meq PO DAILY [facility] Last Admin: 01/03/22 09:32 Dose: Not Given Documented By: FRAN Non-Admin Reason: Patient Refused Pregabalin (Pregabalin 100 Mg Capsule) 100 mg PO TID [facility] Last Admin: 01/03/22 09:14 Dose: 100 mg Documented By: FRAN Rivaroxaban (Rivaroxaban 20 Mg Tablet) 20 mg PO DAILY [facility] Last Admin: 01/03/22 09:14 Dose: 20 mg Documented By: FRAN Senna (Sennosides 8.6 Mg Tablet) 17.2 mg PO BEDTIME PRN PRN Reason: Constipation Senna (Sennosides 8.6 Mg Tablet) 17.2 mg PO DAILY PRN PRN Reason: Constipation Sodium Chloride (0.9 % Sodium Chloride Flush 3 Ml Syringe) 3 ml IVFLUSH QSHIFT [facility] Last Admin: 01/03/22 09:15 Dose: 3 ml Documented By: FRAN Trazodone HCl (Trazodone Hcl 50 Mg Tablet) 50 mg PO BEDTIME [facility] Last Admin: 01/02/22 21:59 Dose: Not Given Documented By: ROBERTA Non-Admin Reason: Patient Refused Labs CBC & Chem 7: 01/01/22 06:24 01/03/22 06:17 Labs: Laboratory Results - last 24 hr 01/02/22 01/02/22 01/03/22 15:10 19:44 06:17 Anion Gap 14 Estim Creat Clear Calc 87.0 Estimated GFR > 60 POC Glucose 109 117 H Random Glucose 116 H Calcium 7.8 L D Magnesium 1.6 01/03/22 01/03/22 07:40 11:21 Anion Gap Estim Creat Clear Calc Estimated GFR POC Glucose 102 131 H Random Glucose Calcium Magnesium Assessment and Plan (1) Acute cholecystitis due to biliary calculus: Status: Acute (2) Persistent atrial fibrillation: Status: Acute (3) Bacteremia due to Gram-negative bacteria: Status: Acute Plan 71-year-old female with a past medical history of hypertension, hyperlipidemia, diabetes, CAD, CHF, AFib, anxiety, depression, schizoaffective disorder, history of bilateral lower extremity DVT, asthma, osteoarthritis, dorsalgia, [place]; presented to the hospital with a chief complaint of altered mental status.? Noted to have following Acute cholecystitis HIDA scan positive for acute cholecystitis Cholecystostomy tube placed by IR 12/31, minimal output thus far Ecoli Bacteremia ESBL + Secondary to cholecystitis Seen by ID Continue Meropenem - total 14 days - end date 01/13 midline placed 01/01 AFib with RVR back on cardizem drip, HR variable. will likely need to be resumed on po cardizem when HR improved continue metoprolol 100 bid, dose increased this admission cardiology following xarelto resumed Hypokalemia/hypo magnesemia improved Follow BMP Toxic metabolic encephalopathy.? secondary to bacteremia baseline confusion Hypernatremia. Resolved likely from hypovolemia treated with D5W and repeat BMP CAP, Right lower lobe pneumonia Suspected aspiration.? continue meropenem speech evaluation recommend ground diet with thin liquids Aspiration precautions. Transaminitis Likely in setting of sepsis/cholecystitis LFTs back to normal ANABELL. Resolved Likely prerenal.? Hold home diuretics.? Avoid nephrotoxins.? History of HFpEF Resume Lasix History of diabetes. metformin, lantus on hold SSI, ada diet History of hypertension bp stable Continue metoprolol Norvasc on hold monitor History of anxiety/depression/schizoaffective disorder Continue home clonazepam/mirtazapine DVT prophylaxis:? Xarelto resumed Code status:? Full Code.? Patient has MOLST form Attending Dr. Cole dispo - to return to [facility] with PICC to complete abx when medically stable Continue hospitalization for Gram-negative bacteremia requiring IV antibiotics and cholecystostomy tube Quality Stroke Does the patient have a stroke diagnosis?: No VTE Prior VTE?: No VTE Risk Level:: Medical - moderate - high VTE Device Contraindication: Treatment Not Indicated VTE Drug Contraindication: N/A - Med Ordered
[2022-01-03 15:39] VITALS: BP 110/72; PULSE 82; RESP 18; TEMP 36.4; O2SAT 97
[2022-01-03 16:45] LABS: Glucose, Whole Blood 120 mg/dL (60-115)
[2022-01-03 19:39] VITALS: BP 134/94; PULSE 110; RESP 18; TEMP 37.2; O2SAT 97
[2022-01-03 20:08] LABS: Glucose, Whole Blood 127 mg/dL (60-115)
[2022-01-03] MEDS: Mirtazapine 7.5 MG TABLET PO (22:09)
[2022-01-03] MEDS: Atorvastatin Calcium 10 MG TABLET PO (22:09)
[2022-01-03] MEDS: traZODone HCL 50 MG TABLET PO (22:10)
[2022-01-04] VITALS: BP 124/60; PULSE 89; RESP 15; TEMP 36.4; O2SAT 96
[2022-01-04 03:41] VITALS: BP 145/73; PULSE 81; RESP 16; TEMP 36.7; O2SAT 95
[2022-01-04 07:07] LABS: Hematocrit 30.8 % (37.0-47.0); Mean Corpuscular HGB Conc 32.5 g/dl (31.0-35.0); Mean Corpuscular Volume 95.4 fL (80.0-98.0); Mean Platelet Volume 10.3 fL (9.4-12.3); Platelet Count 282 X10*3/uL (160-400); Red Blood Count 3.23 X10*6/uL (4.20-5.50); Red Cell Distribution Width 13.5 % (11.0-16.0); White Blood Count 5.5 X10*3/uL (4.8-10.8)
[2022-01-04 07:12] LABS: Glucose, Whole Blood 109 mg/dL (60-115)
[2022-01-04 07:21] VITALS: BP 147/71; PULSE 87; RESP 20; TEMP 36.1; O2SAT 93
[2022-01-04 07:28] LABS: Anion Gap 10 (12-20); Blood Urea Nitrogen 6 mg/dL (9-16); Calcium 7.9 mg/dL (8.4-10.2); Carbon Dioxide 33 mmol/L (22-29); Chloride 100 mmol/L (96-108); Creatinine Clr Calc Pharmacy 91.5; Estimated Glomerular Filt Rate > 60; Glucose Random 116 mg/dL (60-115); Magnesium 1.5 mg/dL (1.6-2.6); Potassium 3.5 mmol/L (3.3-5.1); Sodium 139 mmol/L (135-145)
[2022-01-04] MEDS: Escitalopram Oxalate 10 MG TABLET PO (08:40)
[2022-01-04] MEDS: Rivaroxaban 20 MG TABLET PO (08:40)
[2022-01-04] MEDS: Metoprolol Tartrate 100 MG TABLET PO ×2 (08:40→22:20)
[2022-01-04] MEDS: Potassium Chloride ER 20 MEQ TAB.ER.PRT 40 MEQ PO (08:40)
[2022-01-04] MEDS: Pregabalin 100 MG CAPSULE PO ×3 (08:40→22:19)
[2022-01-04] MEDS: Multivitamin TABLET 1 TAB PO (08:40)
[2022-01-04] MEDS: Furosemide 20 MG TABLET PO (08:40)
[2022-01-04] MEDS: 0.9 % Sodium Chloride Flush 3 ML SYRINGE IVFLUSH ×3 (08:41→22:19)
[2022-01-04] MEDS: Nystatin Cream 15 GM TUBE 1 APPL TOPICAL ×2 (08:48→22:20)
--- NOTE | 2022-01-04 10:28 | HO.PM.IMPN ---
Subjective Subjective Date of Service: 01/04/22 Interval History: follow up for cholecystitis no significant change, awake, alert, answering yes or no questions denies pain Review of Systems Review of Systems: Yes all other systems are reviewed and are negative Constitutional Constitutional: Denies chills and Denies fever(s) Cardiovascular Cardiovascular: Denies chest pain, Denies palpitations and Denies dyspnea Respiratory Respiratory: Denies cough and Denies dyspnea Gastrointestinal Gastrointestinal: Denies abdominal pain Endocrine Endocrine: Denies palpitations Physical Exam Vital Signs: Vital Signs: Last Vital Signs Temp 96.9 F 01/04/22 07:21 Pulse 87 01/04/22 07:21 Resp 20 01/04/22 07:21 BP 147/71 H 01/04/22 07:21 Pulse Ox 93 01/04/22 07:21 O2 Del Method 01/04/22 07:21 O2 Flow Rate 1 01/01/22 07:44 Oxygen Flow Rate 4 12/25/21 13:05 BMI result Body Mass Index 26.8 Appearing in no acute distress lung sounds are clear to auscultation heart regular rate rhythm, clear S1, S2 positive bowel sounds, abdomen is soft, nontender neuro patient is alert, confused Objective Data Active Medications Acetaminophen (Acetaminophen 325 Mg Tablet) 650 mg PO Q6H PRN PRN Reason: Pain, Mild (Pain Scale 1-3) Acetaminophen (Acetaminophen Supp 650 Mg Supp.Rect) 650 mg [place] Q6H PRN PRN Reason: Fever Last Admin: 12/25/21 20:42 Dose: 650 mg Documented By: AMBROSIO Albuterol Sulfate (Albuterol Sulfate 90 Mcg 8 Gm Inhaler) 2 puff INHALE Q6H PRN PRN Reason: Shortness Of Breath Or Wheezing Atorvastatin Calcium (Atorvastatin Calcium 10 Mg Tablet) 10 mg PO BEDTIME [facility] Last Admin: 01/03/22 22:09 Dose: 10 mg Documented By: SCOTTY Bisacodyl (Bisacodyl 10 Mg Supp.Rect) 10 mg [place] DAILY PRN PRN Reason: Constipation Dextrose (Dextrose 50 % 25 Gm/50 Ml Syringe) 25 gm IVPUSH Q15M PRN; Protocol PRN Reason: per Hypoglycemia Standing Ord. Escitalopram Oxalate (Escitalopram Oxalate 10 Mg Tablet) 10 mg PO DAILY [facility] Last Admin: 01/04/22 08:40 Dose: 10 mg Documented By: KARLA Furosemide (Furosemide 20 Mg Tablet) 20 mg PO DAILY [facility]; Protocol Last Admin: 01/04/22 08:40 Dose: 20 mg Documented By: KARLA Glucose (Glucose Gel 15 Gm Gel..Gram.) 15 gm PO Q15M PRN; Protocol PRN Reason: per Hypoglycemia Standing Ord. Meropenem 1 gm/ Sodium (Chloride) 100 mls @ 200 mls/hr IV Q8H [facility] Last Infusion: 01/04/22 09:30 Dose: 0 mls/hr Documented By: KARLA Diltiazem HCl 125 mg/ Sodium (Chloride) 125 mls @ 0 mls/hr IVCONT .Q0M [facility]; Protocol Last Titration: 01/03/22 10:59 Dose: 0 mg/hr, 0 mls/hr Documented By: FRAN Insulin Human Lispro (Insulin Lispro 100 Unit/Ml 3 Ml Vial) 0 unit SUBCUT QIDACHS [facility]; Protocol Last Admin: 01/04/22 07:53 Dose: Not Given Documented By: KARLA Non-Admin Reason: No Insulin Coverage Melatonin (Melatonin 3 Mg Tablet) 6 mg PO BEDTIME PRN PRN Reason: Insomnia Metoprolol Tartrate (Metoprolol Tartrate 100 Mg Tablet) 100 mg PO BID [facility]; Protocol Last Admin: 01/04/22 08:40 Dose: 100 mg Documented By: KARLA Mirtazapine (Mirtazapine 7.5 Mg Tablet) 7.5 mg PO BEDTIME [facility] Last Admin: 01/03/22 22:09 Dose: 7.5 mg Documented By: SCOTTY Multivitamins/Vitamin C (Multivitamin Tablet) 1 tab PO DAILY [facility] Last Admin: 01/04/22 08:40 Dose: 1 tab Documented By: KARLA Nystatin (Nystatin Cream 15 Gm Tube) 1 appl TOPICAL BID [facility]; Protocol Last Admin: 01/04/22 08:48 Dose: 1 appl Documented By: KARLA Pharmacy Consult (Consult Rx Perform Med Rec) 1 each MISCELLANE ONCE PRN PRN Reason: Consult order Potassium Chloride (Potassium Chloride Er 20 Meq Tab.Er.Prt) 40 meq PO DAILY [facility] Last Admin: 01/04/22 08:40 Dose: 40 meq Documented By: KARLA Pregabalin (Pregabalin 100 Mg Capsule) 100 mg PO TID [facility] Last Admin: 01/04/22 08:40 Dose: 100 mg Documented By: KARLA Rivaroxaban (Rivaroxaban 20 Mg Tablet) 20 mg PO DAILY [facility] Last Admin: 01/04/22 08:40 Dose: 20 mg Documented By: KARLA Senna (Sennosides 8.6 Mg Tablet) 17.2 mg PO BEDTIME PRN PRN Reason: Constipation Senna (Sennosides 8.6 Mg Tablet) 17.2 mg PO DAILY PRN PRN Reason: Constipation Sodium Chloride (0.9 % Sodium Chloride Flush 3 Ml Syringe) 3 ml IVFLUSH QSHIFT [facility] Last Admin: 01/04/22 08:41 Dose: 3 ml Documented By: KARLA Trazodone HCl (Trazodone Hcl 50 Mg Tablet) 50 mg PO BEDTIME [facility] Last Admin: 01/03/22 22:10 Dose: 50 mg Documented By: SCOTTY Labs CBC & Chem 7: 01/04/22 06:49 01/04/22 06:49 Labs: Laboratory Results - last 24 hr 01/03/22 01/03/22 01/03/22 11:21 16:40 19:38 MCV MCH MCHC RDW Plt Count MPV Absolute Nucleated RBC Nucleated RBC % (auto) Anion Gap Estim Creat Clear Calc Estimated GFR POC Glucose 131 H 120 H 127 H Random Glucose Calcium Magnesium 01/04/22 01/04/22 01/04/22 06:49 06:49 07:01 MCV 95.4 MCH 31.0 MCHC 32.5 RDW 13.5 Plt Count 282 MPV 10.3 Absolute Nucleated RBC 0.000 Nucleated RBC % (auto) 0.0 Anion Gap 10 L Estim Creat Clear Calc 91.5 Estimated GFR > 60 POC Glucose 109 Random Glucose 116 H Calcium 7.9 L Magnesium 1.5 L Assessment and Plan (1) Acute cholecystitis due to biliary calculus: Status: Acute (2) Persistent atrial fibrillation: Status: Acute (3) Bacteremia due to Gram-negative bacteria: Status: Acute Plan 71-year-old female with a past medical history of hypertension, hyperlipidemia, diabetes, CAD, CHF, AFib, anxiety, depression, schizoaffective disorder, history of bilateral lower extremity DVT, asthma, osteoarthritis, dorsalgia, [facility] resident; presented to the hospital with a chief complaint of altered mental status.? Noted to have following Acute cholecystitis HIDA scan positive for acute cholecystitis Cholecystostomy tube placed by IR 12/31, minimal output thus far Ecoli Bacteremia ESBL + Secondary to cholecystitis Seen by ID Continue Meropenem - total 14 days - end date 01/13 midline placed 01/01 AFib with RVR back on cardizem drip, HR variable. will likely need to be resumed on po cardizem when HR improved continue metoprolol 100 bid, dose increased this admission cardiology following xarelto resumed Hypokalemia/hypo magnesemia mag repleted Follow BMP Toxic metabolic encephalopathy.? secondary to bacteremia baseline confusion Hypernatremia. Resolved likely from hypovolemia treated with D5W and repeat BMP CAP, Right lower lobe pneumonia Suspected aspiration.? continue meropenem speech evaluation recommend ground diet with thin liquids Aspiration precautions. Transaminitis Likely in setting of sepsis/cholecystitis LFTs back to normal ANABELL. Resolved Likely prerenal.? Avoid nephrotoxins.? History of HFpEF Resume Lasix History of diabetes. metformin, lantus on hold SSI, ada diet History of hypertension bp stable Continue metoprolol Norvasc on hold monitor History of anxiety/depression/schizoaffective disorder Continue home clonazepam/mirtazapine DVT prophylaxis:? Xarelto resumed Code status:? Full Code.? Patient has MOLST form Attending Dr. Cole dispo - to return to [facility] with PICC to complete abx when medically stable Continue hospitalization for Gram-negative bacteremia requiring IV antibiotics and cholecystostomy tube Quality Stroke Does the patient have a stroke diagnosis?: No VTE Prior VTE?: No VTE Risk Level:: Medical - moderate - high VTE Device Contraindication: Treatment Not Indicated VTE Drug Contraindication: N/A - Med Ordered
[2022-01-04 11:34] VITALS: BP 112/70; PULSE 76; RESP 15; TEMP 36.1; O2SAT 97
[2022-01-04 11:37] LABS: Glucose, Whole Blood 149 mg/dL (60-115)
--- NOTE | 2022-01-04 14:14 | MHC.CM.PN ---
EMR REVIEWED, PER HOSPITALIST PT'S AFIB UP AND DOWN,CARDIZEM DRIP, CHOLEY TUBE REMAINS IN PLACE & ANTIC WILL BE REMOVED PRIOR TO D/C, ANTIC PT WILL D/C BACK TO LTC AT [facility] ONCE MEDICALLY CLEARED, CM WILL CONT TO FOLLOW D/C NEEDS.
[2022-01-04 16:00] VITALS: BP 111/69; PULSE 84; RESP 16; TEMP 37.2; O2SAT 97
--- NOTE | 2022-01-04 17:10 | MHC.SL.SWA ---
Speech Pathologist Impression: Risk of Aspiration Due to: Medically Fragile History of Pneumonia Reduced Cognition Dysphasia Diet Status: Liquid Consistency and Strategies for Safe Swallow: Liquid Intake Recommendation: Thin Liquid Intake Strategies: Small Sips No Straws Solid Food Consistency: Dietary Recommendations: Grnd/Mech Altered (NDD2) Additional Modifications to Solid Foods: Continue w/ GROUND/MECH ALTERED (NDD2) diet w/ THIN liquids, CRUSH pills in PUREE. Patient requires 1:1 assistance feeding, ensure aspiration precautions. Oral Medication Intake: Crushed with Puree Please contact the pharmacy regarding appropriate crushable or liquid drug formulations that are available whenever modified delivery is recommended. Compensatory Strategies and Precautions to be Taken for Safe Swallow: Sitting Upright (90 deg) No Straw Small Bites and Sips Alternate Liquids/Solids Rate of Ingestion Change Oral Check Avoid Specific Foods Supervision While Eating and Drinking for Safe Swallow: Total Assistance (1:1) Foods to Avoid: Difficulty to chew solids, sticky consistencies. Swallowing Recommended Treatments: Compens. Strategy Educat. Recommendation for Speech: Inpatient Speech Therapy Comment: Pt presents with oral phase dysphagia, due to mild oral motor weakness and edentulous state. Patient was awake and alert, sitting up in bed. Pt was observed taking sips of liquid from a cup with hand over hand assistance. Pt had normal oral phase, mildly reduced laryngeal elevation. Pt observed taking tsp amount of pudding, with mild delay of oral phase, timely swallow with reduced laryngeal elevation. Discussed current diet with patient, she is reporting no difficulties, mild dissatisfaction with having hamburger all the time, which may be due to having ground proteins on the tray frequently. Pt is tolerating current diet, continues to need assistance during meals due to unsteadiness of spout tender, mild confusion. Diet is patients baseline. Recommend discharge speech/language at this time. Date Range for Service Req: Timeline to reassess: Flight Follower Clinican/Clinical Fellow: No Supervisory Statement: I have reviewed and agree with the student/clinical fellow's documentation: N/A Speech Language Pathologist: Becky Piper M.A., CCC-BOTTOMING MACHINE OPERATOR
[2022-01-04 17:32] LABS: Glucose, Whole Blood 142 mg/dL (60-115)
[2022-01-04 20:00] VITALS: BP 105/68; PULSE 94; RESP 16; TEMP 36.9; O2SAT 97
[2022-01-04 21:13] LABS: Glucose, Whole Blood 189 mg/dL (60-115)
[2022-01-04] MEDS: Mirtazapine 7.5 MG TABLET PO (22:19)
[2022-01-04] MEDS: Insulin Lispro 100 UNIT/ML 3 ML VIAL SUBCUT (22:19)
[2022-01-04] MEDS: Atorvastatin Calcium 10 MG TABLET PO (22:19)
[2022-01-04] MEDS: traZODone HCL 50 MG TABLET PO (22:19)
[2022-01-05] VITALS (11 sets, daily range): BP systolic 93–137; BP diastolic 55–84; PULSE 76–88; RESP 15–19; TEMP 36.3–37.2; O2SAT 95–99
[2022-01-05 07:43] LABS: Glucose, Whole Blood 137 mg/dL (60-115)
--- NOTE | 2022-01-05 09:08 | P.PNIM_ITS ---
Subjective Subjective Date of Service: 01/05/22 Interval History: follow up for cholecystitis no significant change, awake, alert, answering yes or no questions denies pain Review of Systems Review of Systems: Yes all other systems are reviewed and are negative Constitutional Constitutional: Denies chills and Denies fever(s) Cardiovascular Cardiovascular: Denies chest pain, Denies palpitations and Denies dyspnea Respiratory Respiratory: Denies cough and Denies dyspnea Gastrointestinal Gastrointestinal: Denies abdominal pain Endocrine Endocrine: Denies palpitations Physical Exam Vital Signs: Vital Signs: Last Vital Signs Temp 98.3 F 01/05/22 08:00 Pulse 88 01/05/22 08:00 Resp 18 01/05/22 08:00 BP 137/84 01/05/22 08:00 Pulse Ox 99 01/05/22 08:00 O2 Del Method 01/05/22 08:00 O2 Flow Rate 1 01/01/22 07:44 Oxygen Flow Rate 4 12/25/21 13:05 BMI result Body Mass Index 26.8 Appearing in no acute distress lung sounds are clear to auscultation heart regular rate rhythm, clear S1, S2 positive bowel sounds, abdomen is soft, nontender, cholecystostomy drain prese nt neuro patient is alert x3, no focal deficits Objective Data Active Medications Acetaminophen (Acetaminophen 325 Mg Tablet) 650 mg PO Q6H PRN PRN Reason: Pain, Mild (Pain Scale 1-3) Acetaminophen (Acetaminophen Supp 650 Mg Supp.Rect) 650 mg [place] Q6H PRN PRN Reason: Fever Last Admin: 12/25/21 20:42 Dose: 650 mg Documented By: AMBROSIO Albuterol Sulfate (Albuterol Sulfate 90 Mcg 8 Gm Inhaler) 2 puff INHALE Q6H PRN PRN Reason: Shortness Of Breath Or Wheezing Atorvastatin Calcium (Atorvastatin Calcium 10 Mg Tablet) 10 mg PO BEDTIME [facility] Last Admin: 01/04/22 22:19 Dose: 10 mg Documented By: JOSE G Bisacodyl (Bisacodyl 10 Mg Supp.Rect) 10 mg [place] DAILY PRN PRN Reason: Constipation Dextrose (Dextrose 50 % 25 Gm/50 Ml Syringe) 25 gm IVPUSH Q15M PRN; Protocol PRN Reason: per Hypoglycemia Standing Ord. Escitalopram Oxalate (Escitalopram Oxalate 10 Mg Tablet) 10 mg PO DAILY [facility] Last Admin: 01/04/22 08:40 Dose: 10 mg Documented By: KARLA Furosemide (Furosemide 20 Mg Tablet) 20 mg PO DAILY [facility]; Protocol Last Admin: 01/04/22 08:40 Dose: 20 mg Documented By: KARLA Glucose (Glucose Gel 15 Gm Gel..Gram.) 15 gm PO Q15M PRN; Protocol PRN Reason: per Hypoglycemia Standing Ord. Meropenem 1 gm/ Sodium (Chloride) 100 mls @ 200 mls/hr IV Q8H [facility] Last Infusion: 01/05/22 02:48 Dose: 0 mls/hr Documented By: JOSE G Diltiazem HCl 125 mg/ Sodium (Chloride) 125 mls @ 0 mls/hr IVCONT .Q0M [facility]; Protocol Last Titration: 01/03/22 10:59 Dose: 0 mg/hr, 0 mls/hr Documented By: FRAN Insulin Human Lispro (Insulin Lispro 100 Unit/Ml 3 Ml Vial) 0 unit SUBCUT Q IDACHS [facility]; Protocol Last Admin: 01/05/22 08:37 Dose: Not Given Documented By: KARLA Non-Admin Reason: No Insulin Coverage Melatonin (Melatonin 3 Mg Tablet) 6 mg PO BEDTIME PRN PRN Reason: Insomnia Metoprolol Tartrate (Metoprolol Tartrate 100 Mg Tablet) 100 mg PO BID [facility]; Protocol Last Admin: 01/04/22 22:20 Dose: 100 mg Documented By: JOSE G Mirtazapine (Mirtazapine 7.5 Mg Tablet) 7.5 mg PO BEDTIME [facility] Last Admin: 01/04/22 22:19 Dose: 7.5 mg Documented By: JOSE G Multivitamins/Vitamin C (Multivitamin Tablet) 1 tab PO DAILY [facility] Last Admin: 01/04/22 08:40 Dose: 1 tab Documented By: KARLA Nystatin (Nystatin Cream 15 Gm Tube) 1 appl TOPICAL BID [facility]; Protocol Last Admin: 01/04/22 22:20 Dose: 1 appl Documented By: JOSE G Pharmacy Consult (Consult Rx Perform Med Rec) 1 each MISCELLANE ONCE PRN PRN Reason: Consult order Potassium Chloride (Potassium Chloride Er 20 Meq Tab.Er.Prt) 40 meq PO DAILY [facility] Last Admin: 01/04/22 08:40 Dose: 40 meq Documented By: KARLA Pregabalin (Pregabalin 100 Mg Capsule) 100 mg PO TID [facility] Last Admin: 01/04/22 22:19 Dose: 100 mg Documented By: JOSE G Rivaroxaban (Rivaroxaban 20 Mg Tablet) 20 mg PO DAILY [facility] Last Admin: 01/04/22 08:40 Dose: 20 mg Documented By: KARLA Senna (Sennosides 8.6 Mg Tablet) 17.2 mg PO BEDTIME PRN PRN Reason: Constipation Senna (Sennosides 8.6 Mg Tablet) 17.2 mg PO DAILY PRN PRN Reason: Constipation Sodium Chloride (0.9 % Sodium Chloride Flush 3 Ml Syringe) 3 ml IVFLUSH QSHIFT [facility] Last Admin: 01/04/22 22:19 Dose: 3 ml Documented By: JOSE G Trazodone HCl (Trazodone Hcl 50 Mg Tablet) 50 mg PO BEDTIME [facility] Last Admin: 01/04/22 22:19 Dose: 50 mg Documented By: JOSE G Labs CBC & Chem 7: 01/04/22 06:49 01/04/22 06:49 Labs: Laboratory Results - last 24 hr 01/04/22 01/04/22 01/04/22 11:33 17:29 21:05 POC Glucose 149 H 142 H 189 H 01/05/22 07:25 POC Glucose 137 H Assessment and Plan (1) Acute cholecystitis due to biliary calculus: Status: Acute (2) Persistent atrial fibrillation: Status: Acute (3) Bacteremia due to Gram-negative bacteria: Status: Acute Plan 71-year-old female with a past medical history of hypertension, hyperlipidemia, diabetes, CAD, CHF, AFib, anxiety, depression, schizoaffective disorder, history of bilateral lower extremity DVT, asthma, osteoarthritis, dorsalgia, nursing keyshawn e resident; presented to the hospital with a chief complaint of altered mental status.? Noted to have following Acute cholecystitis HIDA scan positive for acute cholecystitis Cholecystostomy tube placed by IR 12/31, minimal output thus far Check abd U/S for improvement Ecoli Bacteremia ESBL + Secondary to cholecystitis Seen by ID Continue Meropenem - total 14 days - end date 01/13 midline placed 01/01 AFib with RVR back on cardizem drip, HR variable. will likely need to be resumed on po cardiz em when HR improved continue metoprolol 100 bid, dose increased this admission cardiology following xarelto resumed Hypokalemia/hypo magnesemia mag repleted Follow BMP Toxic metabolic encephalopathy.? secondary to bacteremia baseline confusion Hypernatremia. Resolved likely from hypovolemia treated with D5W and repeat BMP CAP, Right lower lobe pneumonia Suspected aspiration.? continue meropenem speech evaluation recommend ground diet with thin liquids Aspiration precautions. Transaminitis Likely in setting of sepsis/cholecystitis LFTs back to normal ANABELL. Resolved Likely prerenal.? Avoid nephrotoxins.? History of HFpEF Resume Lasix History of diabetes. metformin, lantus on hold SSI, ada diet History of hypertension bp stable Continue metoprolol Norvasc on hold monitor History of anxiety/depression/schizoaffective disorder Continue home clonazepam/mirtazapine DVT prophylaxis:? Xarelto Code status:? Full Code.? Patient has MOLST form Attending Dr. Cole dispo - to return to [facility] with PICC to complete abx when medically stable Continue hospitalization for Gram-negative bacteremia requiring IV antibiotics and cholecystostomy tube Quality Stroke Does the patient have a stroke diagnosis?: No VTE Prior VTE?: No VTE Risk Level:: Medical - moderate - high VTE Device Contraindication: Treatment Not Indicated VTE Drug Contraindication: N/A - Med Ordered
[2022-01-05] MEDS: 0.9 % Sodium Chloride Flush 3 ML SYRINGE IVFLUSH ×3 (10:18→21:10)
[2022-01-05] MEDS: Rivaroxaban 20 MG TABLET PO (10:18)
[2022-01-05] MEDS: Furosemide 20 MG TABLET PO (10:18)
[2022-01-05] MEDS: Multivitamin TABLET 1 TAB PO (10:18)
[2022-01-05] MEDS: Pregabalin 100 MG CAPSULE PO ×3 (10:18→21:09)
[2022-01-05] MEDS: Metoprolol Tartrate 100 MG TABLET PO ×2 (10:18→21:09)
[2022-01-05] MEDS: Escitalopram Oxalate 10 MG TABLET PO (10:18)
[2022-01-05] MEDS: Nystatin Cream 15 GM TUBE 1 APPL TOPICAL (10:19)
[2022-01-05 10:59] LABS: Glucose, Whole Blood 114 mg/dL (60-115)
--- NOTE | 2022-01-05 13:48 | P.CNGI_ITS ---
History of Present Illness Data of Consult Service Date: 01/05/22 Requesting physician: Katie Moreno Primary Care Provider: Unknown Physician HPI 76-year-old female with a past medical history of hypertension, hyperlipidemia, diabetes, CAD, CHF, AFib, history of DVT on Xarelto, anxiety, schizoaffective disorder, asthma, osteoarthritis, chronic back pain, who I am seeing for assessment for choledocholithiasis She is minimally verbal at baseline. She presented to the hospital with AMS from the [place]. She had work up revealing GNB, and imaging concerning for aspiriation pneumonia, as well as cholecystitis. She then had cholecystostomy tube placed as she was felt to be be high risk for surgery. She then had US done revealing dilated CBD with sludge and debris blocking the duct. She is more alert now, insight seems limited, she denies abdominal rosenthal, no nausea or pain. Review of Systems Review of Systems: Constitutional : No Weight loss, No Fever, No Chills ENT/Mouth : No sore throat, No Rhinorrhea Eyes: No Swelling, No Redness Cardiovascular : No Chest Pain, No SOB, No Edema Respiratory : No Cough, No Sputum, No Wheezing Gastrointestinal : see HPI Genitourinary : NO Dysuria, No Urinary Frequency, No Hematuria, No Urgency Musculoskeletal : No joint pain, No Myalgias, No Joint Swelling Skin : No Skin Lesions, No rash Neuro : No Weakness, No Numbness, No Dizziness, No Headache Psych : No Anxiety/Panic, No Depression Heme/Lymph: No Bruising, No Lymphadenopathy Endocrine : No Polyuria, No Polydipsia All other systems reviewed and are negative. [facility] Past Medical History Medical History (Updated 12/30/21 @ 13:54 by Uma San MD) Afib Bacteremia due to Gram-negative bacteria DVT, bilateral lower limbs Hypercholesterolemia Lumbar degenerative disc disease Recurrent UTI Type 2 diabetes mellitus with hyperglycemia Family History Family History Father Diabetes Heart disease Mother Heart disease Son Opiate addiction Surgical History Surgical History History of lumpectomy of right breast History of tubal ligation Social History Social History Household Members: None Household Members Other:: Brought to ER by son with whom she lives Housing: [facility]pc Do you presently have visiting nurse or other home services: No Unable to assess alcohol history related to: Unknown Alcohol intake: unknown Patient Tobacco Use Status: Never used Tobacco e-Cigarette/Vaping Use: Never Used Second Hand Smoke Exposure: No Advance Directives Date on File: 01/09/21 service: No Current occupational status: retired Cognitive needs: Yes (Electric Wheel Chair) Hearing needs: Yes (Earring Aids) Vision needs: Yes (Glasses) Meds Allergies Allergy/AdvReac Type Severity Reaction Status Date / Time Iodinated Contrast Media Allergy Severe THROAT Verified 12/29/21 09:41 [IV Dye, Iodine Containing CLOSES Contrast ] UP/SWELLIN iodine [IODINE] Allergy Severe ANAPHYLAXIS Verified 12/29/21 09:41 sulfamethoxazole Allergy Intermediate rash face Verified 10/17/21 10:17 [From Bactrim] trimethoprim [From Bactrim] Allergy Intermediate rash face Verified 10/17/21 10:17 quetiapine [From SEROQUEL] Allergy Unknown SWELLING Verified 10/17/21 10:17 apixaban [From Eliquis] AdvReac Intermediate Diarrhea Verified 10/17/21 10:17 amoxicillin [Augmentin] AdvReac Unknown Diarrhea Verified 12/29/21 09:45 clavulanic acid [Augmentin] AdvReac Unknown Diarrhea Verified 12/29/21 09:45 lisinopril [LISINOPRIL] AdvReac Unknown Cough Verified 12/29/21 09:45 prednisone [PREDNISONE] AdvReac Unknown INCREASE Verified 12/29/21 09:41 BLOOD PRESSURE Active Medications: Current Medications Acetaminophen (Acetaminophen 325 Mg Tablet) 650 mg PO Q6H PRN PRN Reason: Pain, Mild (Pain Scale 1-3) Acetaminophen (Acetaminophen Supp 650 Mg Supp.Rect) 650 mg [place] Q6H PRN PRN Reason: Fever Last Admin: 12/25/21 20:42 Dose: 650 mg Albuterol Sulfate (Albuterol Sulfate 90 Mcg 8 Gm Inhaler) 2 puff INHALE Q6H PRN PRN Reason: Shortness Of Breath Or Wheezing Atorvastatin Calcium (Atorvastatin Calcium 10 Mg Tablet) 10 mg PO BEDTIME [facility] Last Admin: 01/04/22 22:19 Dose: 10 mg Bisacodyl (Bisacodyl 10 Mg Supp.Rect) 10 mg [place] DAILY PRN PRN Reason: Constipation Dextrose (Dextrose 50 % 25 Gm/50 Ml Syringe) 25 gm IVPUSH Q15M PRN; Protocol PRN Reason: per Hypoglycemia Standing Ord. Escitalopram Oxalate (Escitalopram Oxalate 10 Mg Tablet) 10 mg PO DAILY [facility] Last Admin: 01/05/22 10:18 Dose: 10 mg Furosemide (Furosemide 20 Mg Tablet) 20 mg PO DAILY [facility]; Protocol Last Admin: 01/05/22 10:18 Dose: 20 mg Glucose (Glucose Gel 15 Gm Gel..Gram.) 15 gm PO Q15M PRN; Protocol PRN Reason: per Hypoglycemia Standing Ord. Meropenem 1 gm/ Sodium (Chloride) 100 mls @ 200 mls/hr IV Q8H [facility] Last Infusion: 01/05/22 11:02 Dose: Infused Diltiazem HCl 125 mg/ Sodium (Chloride) 125 mls @ 0 mls/hr IVCONT .Q0M [facility]; Protocol Last Titration: 01/03/22 10:59 Dose: 0 mg/hr, 0 mls/hr Insulin Human Lispro (Insulin Lispro 100 Unit/Ml 3 Ml Vial) 0 unit SUBCUT QIDACHS [facility]; Protocol Last Admin: 01/05/22 11:24 Dose: Not Given Melatonin (Melatonin 3 Mg Tablet) 6 mg PO BEDTIME PRN PRN Reason: Insomnia Metoprolol Tartrate (Metoprolol Tartrate 100 Mg Tablet) 100 mg PO BID [facility]; Protocol Last Admin: 01/05/22 10:18 Dose: 100 mg Mirtazapine (Mirtazapine 7.5 Mg Tablet) 7.5 mg PO BEDTIME [facility] Last Admin: 01/04/22 22:19 Dose: 7.5 mg Multivitamins/Vitamin C (Multivitamin Tablet) 1 tab PO DAILY [facility] Last Admin: 01/05/22 10:18 Dose: 1 tab Nystatin (Nystatin Cream 15 Gm Tube) 1 appl TOPICAL BID [facility]; Protocol Last Admin: 01/05/22 10:19 Dose: 1 appl Pharmacy Consult (Consult Rx Perform Med Rec) 1 each MISCELLANE ONCE PRN PRN Reason: Consult order Potassium Chloride (Potassium Chloride Er 20 Meq Tab.Er.Prt) 40 meq PO DAILY [facility] Last Admin: 01/05/22 10:19 Dose: Not Given Pregabalin (Pregabalin 100 Mg Capsule) 100 mg PO TID [facility] Last Admin: 01/05/22 10:18 Dose: 100 mg Rivaroxaban (Rivaroxaban 20 Mg Tablet) 20 mg PO DAILY [facility] Last Admin: 01/05/22 10:18 Dose: 20 mg Senna (Sennosides 8.6 Mg Tablet) 17.2 mg PO BEDTIME PRN PRN Reason: Constipation Senna (Sennosides 8.6 Mg Tablet) 17.2 mg PO DAILY PRN PRN Reason: Constipation Sodium Chloride (0.9 % Sodium Chloride Flush 3 Ml Syringe) 3 ml IVFLUSH QSHIFT [facility] Last Admin: 01/05/22 10:18 Dose: 3 ml Trazodone HCl (Trazodone Hcl 50 Mg Tablet) 50 mg PO BEDTIME [facility] Last Admin: 01/04/22 22:19 Dose: 50 mg Home Medications Medication Instructions Recorded Confirmed Last Taken Type albuterol sulfate 90 mcg/actuation 2 puff inhalation Q6H PRN 06/18/20 12/25/21 10/17/21 History aerosol inhaler Shortness Of Breath Or Wheezing Lactobacil.acidophilus-Bifido.animalis 1 cap PO BID 10/17/21 12/25/21 12/24/21 History 5 billion cell sprinkle capsule (Probiotic) acetaminophen 325 mg tablet 650 mg PO Q4H PRN Fever Or Pain 10/17/21 12/25/21 12/24/21 History bisacodyl 10 mg rectal suppository 10 mg NC DAILY PRN Constipation 10/17/21 12/25/21 Unknown History loperamide 2 mg tablet 2 mg PO Q6H PRN Loose Stool 10/17/21 12/25/21 10/26/21 History metoprolol succinate 25 mg 25 mg PO DAILY 10/17/21 12/25/21 12/24/21 History tablet,extended release 24 hr multivitamin with minerals 1 tab PO DAILY 10/17/21 12/25/21 12/24/21 History sennosides 8.6 mg tablet (senna) 17.2 mg PO DAILY PRN Constipation 10/17/21 12/25/21 Unknown History trazodone 50 mg tablet 50 mg PO BEDTIME 10/17/21 12/25/21 12/24/21 History furosemide 20 mg tablet 1 tab PO DAILY 12/25/21 12/25/21 12/24/21 History insulin glargine 100 unit/mL (3 20 unit subcut DAILY 12/25/21 12/25/21 12/24/21 History mL) subcutaneous pen (Lantus Solostar U-100 Insulin) menthol 4 % topical gel (Biofreeze 1 appl topical BID 12/25/21 12/25/21 12/25/21 History (menthol)) mirtazapine 7.5 mg tablet 7.5 mg PO BEDTIME 12/25/21 12/25/21 12/24/21 History nystatin 100,000 unit/gram topical 1 appl topical BID 12/25/21 12/25/21 12/25/21 History cream potassium chloride 10 mEq 1 cap PO DAILY 12/25/21 12/25/21 12/22/21 History capsule,extended release potassium chloride 20 mEq 1 tab PO BID 12/25/21 12/25/21 12/25/21 History tablet,extended release(part/cryst) rivaroxaban 20 mg tablet (Xarelto) 1 tab PO DAILY 12/25/21 12/25/21 12/24/21 History Physical Exam Vital Signs: Vital Signs: Last Vital Signs Temp 98.6 F 01/05/22 11:47 Pulse 85 01/05/22 11:47 Resp 19 01/05/22 11:47 BP 115/75 01/05/22 11:47 Pulse Ox 97 01/05/22 11:47 O2 Del Method 01/05/22 11:47 O2 Flow Rate 1 01/01/22 07:44 Oxygen Flow Rate 4 12/25/21 13:05 BMI result Body Mass Index 26.8 EXAM: GENERAL: The patient is thin, flat affect VITAL SIGNS:see workflow HEENT: Nonicteric sclerae, PERRLA, EOMI. Oropharynx clear. Moist mucous membranes. Conjunctivae appear well perfused. No thyroid mass. CHEST: Chest wall is nontender. HEART: irregular rate and rhythm without murmurs. LUNGS: Clear to auscultation bilaterally. ABDOMEN: Soft, positive bowel sounds, nontender, no organomegaly.no flank tenderness, C-tube noted SKIN: No rash, no excessive bruising, petechiae, or purpura. NEUROLOGIC: Cranial nerves II-XII intact without motor/sensory deficit. Psych: alert, awake bt not orientated, flat affect, minimal answers to quest ions, has to be prompted, gives one or two word answers Results Labs CBC & Chem 7: 01/04/22 06:49 01/04/22 06:49 Microbiology Microbiology Results: Microbiology 12/25/21 13:55 Blood - Venous Blood Culture - Final Escherichia coli 12/25/21 13:37 Blood - Venous Blood Culture - Final Escherichia coli Assessment and Plan (1) Bacteremia due to Gram-negative bacteria: Status: Acute (2) Cholelithiasis: Status: Acute Plan 1/ Cholecystitis with gram neg bacteremia, now with choledocholithiasis, minimal o/p from the C-tube, concern for blockage, she is improved from before she needs ercp to clear the duct to prevent further complications PLAN: 1/ Tried to call son to discuss ERCP, no success, will keep trying 2/ would stop xarelto for the meantime, can use heparin gtt if needed 3/ recheck INR and APTT in the morning. 4/ ERCP maybe tomorrow or depending on INR which can be used to some degree to monitor xarelto although it is not the best test, preferably INR closer to 1.5 NOTE: eventually got son Yonis on Tue, explained procedure, risks and benefits and he would like to proceed with the ERCP> Procedures Date of Service Date of Service: 01/05/22
--- NOTE | 2022-01-05 14:43 | P.PNGS_ITS ---
Subjective Subjective Date of Service: 01/05/22 Interval history: Not very communicative Appears drowsy Frail looking Physical Exam Vital Signs: Vital Signs: Last Vital Signs Temp 98.6 F 01/05/22 11:47 Pulse 85 01/05/22 11:47 Resp 19 01/05/22 11:47 BP 115/75 01/05/22 11:47 Pulse Ox 97 01/05/22 11:47 O2 Del Method 01/05/22 11:47 O2 Flow Rate 1 01/01/22 07:44 Oxygen Flow Rate 4 12/25/21 13:05 BMI result Body Mass Index 26.8 Const: Other: Frail looking General: comfortable and no acute distress Resp: Effort & Inspection: normal respiratory effort Cardio: Other: Irregular rhythm GI: Other: Cholecystostomy tube in place Palpation (GI): Soft to palpation, not firm and nontender Objective Data Active Medications Acetaminophen (Acetaminophen 325 Mg Tablet) 650 mg PO Q6H PRN PRN Reason: Pain, Mild (Pain Scale 1-3) Acetaminophen (Acetaminophen Supp 650 Mg Supp.Rect) 650 mg [place] Q6H PRN PRN Reason: Fever Last Admin: 12/25/21 20:42 Dose: 650 mg Documented By: AMBROSIO Albuterol Sulfate (Albuterol Sulfate 90 Mcg 8 Gm Inhaler) 2 puff INHALE Q6H PRN PRN Reason: Shortness Of Breath Or Wheezing Atorvastatin Calcium (Atorvastatin Calcium 10 Mg Tablet) 10 mg PO BEDTIME DANELLE Last Admin: 01/04/22 22:19 Dose: 10 mg Documented By: JOSE G Bisacodyl (Bisacodyl 10 Mg Supp.Rect) 10 mg [place] DAILY PRN PRN Reason: Constipation Dextrose (Dextrose 50 % 25 Gm/50 Ml Syringe) 25 gm IVPUSH Q15M PRN; Protocol PRN Reason: per Hypoglycemia Standing Ord. Escitalopram Oxalate (Escitalopram Oxalate 10 Mg Tablet) 10 mg PO DAILY DANELLE Last Admin: 01/05/22 10:18 Dose: 10 mg Documented By: KARLA Furosemide (Furosemide 20 Mg Tablet) 20 mg PO DAILY [facility]; Protocol Last Admin: 01/05/22 10:18 Dose: 20 mg Documented By: KARLA Glucose (Glucose Gel 15 Gm Gel..Gram.) 15 gm PO Q15M PRN; Protocol PRN Reason: per Hypoglycemia Standing Ord. Meropenem 1 gm/ Sodium (Chloride) 100 mls @ 200 mls/hr IV Q8H [facility] Last Infusion: 01/05/22 11:02 Dose: 0 mls/hr Documented By: KARLA Diltiazem HCl 125 mg/ Sodium (Chloride) 125 mls @ 0 mls/hr IVCONT .Q0M [facility]; P rotocol Last Titration: 01/03/22 10:59 Dose: 0 mg/hr, 0 mls/hr Documented By: FRAN Phytonadione 5 mg/ Sodium (Chloride) 50.5 mls @ 50.5 mls/hr IV ONCE ONE Stop: 01/05/22 15:01 Insulin Human Lispro (Insulin Lispro 100 Unit/Ml 3 Ml Vial) 0 unit SUBCUT QIDACHS [facility]; Protocol Last Admin: 01/05/22 11:24 Dose: Not Given Documented By: KARLA Non-Admin Reason: No Insulin Coverage Melatonin (Melatonin 3 Mg Tablet) 6 mg PO BEDTIME PRN PRN Reason: Insomnia Metoprolol Tartrate (Metoprolol Tartrate 100 Mg Tablet) 100 mg PO BID [facility]; Protocol Last Admin: 01/05/22 10:18 Dose: 100 mg Documented By: KARLA Mirtazapine (Mirtazapine 7.5 Mg Tablet) 7.5 mg PO BEDTIME [facility] Last Admin: 01/04/22 22:19 Dose: 7.5 mg Documented By: JOSE G Multivitamins/Vitamin C (Multivitamin Tablet) 1 tab PO DAILY [facility] Last Admin: 01/05/22 10:18 Dose: 1 tab Documented By: KARLA Nystatin (Nystatin Cream 15 Gm Tube) 1 appl TOPICAL BID [facility]; Protocol Last Admin: 01/05/22 10:19 Dose: 1 appl Documented By: KARLA Pharmacy Consult (Consult Rx Perform Med Rec) 1 each MISCELLANE ONCE PRN PRN Reason: Consult order Potassium Chloride (Potassium Chloride Er 20 Meq Tab.Er.Prt) 40 meq PO DAILY [facility] Last Admin: 01/05/22 10:19 Dose: Not Given Documented By: KARLA Non-Admin Reason: Patient Refused Pregabalin (Pregabalin 100 Mg Capsule) 100 mg PO TID [facility] Last Admin: 01/05/22 10:18 Dose: 100 mg Documented By: KARLA Senna (Sennosides 8.6 Mg Tablet) 17.2 mg PO BEDTIME PRN PRN Reason: Constipation Senna (Sennosides 8.6 Mg Tablet) 17.2 mg PO DAILY PRN PRN Reason: Constipation Sodium Chloride (0.9 % Sodium Chloride Flush 3 Ml Syringe) 3 ml IVFLUSH QSHIFT [facility] Last Admin: 01/05/22 10:18 Dose: 3 ml Documented By: KARLA Trazodone HCl (Trazodone Hcl 50 Mg Tablet) 50 mg PO BEDTIME [facility] Last Admin: 01/04/22 22:19 Dose: 50 mg Documented By: JOSE G Labs CBC & Chem 7: 01/04/22 06:49 01/04/22 06:49 Labs: Laboratory Results - last 24 hr 01/04/22 01/04/22 01/05/22 17:29 21:05 07:25 POC Glucose 142 H 189 H 137 H 01/05/22 10:52 POC Glucose 114 Procedures Date of Service Date of Service: 01/05/22 Progress Note: A&P Assessment and plan (1) Acute cholecystitis due to biliary calculus: Status: Acute Assessment and Plan: Cholecystostomy tube in place Minimal output Ultrasound repeated however- CBD stones noted LFTs had normalized - repeat, as this is expected to rise again if with CBD stones GI consult possible ERCP Time Spent With Patient Time: Total time spent is greater than 50% in coordination of care (as documented) at patient's floor/unit and/or counseling patient: Quality Stroke Does the patient have a stroke diagnosis?: No VTE Prior VTE?: No VTE Risk Level:: Medical - moderate - high VTE Device Contraindication: Treatment Not Indicated VTE Drug Contraindication: N/A - Med Ordered
[2022-01-05 15:26] LABS: INTERNATIONAL NORM RATIO 2.3 (0.9-1.1); Prothrombin Time 27.4 SEC (10.0-13.1)
[2022-01-05 15:28] LABS: PTT Heparin Drip 50.3 SEC (53-77.9)
[2022-01-05 16:05] LABS: Glucose, Whole Blood 129 mg/dL (60-115)
[2022-01-05] MEDS: Phytonadione (Vit K1) 5 MG in 0.9 % Sodium Chloride 50 ML 50.5 MG IV (16:26)
[2022-01-05 20:56] LABS: Glucose, Whole Blood 150 mg/dL (60-115)
[2022-01-05] MEDS: Mirtazapine 7.5 MG TABLET PO (21:09)
[2022-01-05] MEDS: Atorvastatin Calcium 10 MG TABLET PO (21:10)
[2022-01-05] MEDS: traZODone HCL 50 MG TABLET PO (21:10)
[2022-01-06 03:55] VITALS: PULSE 87; RESP 18; TEMP 36.1; O2SAT 95
[2022-01-06 08:00] VITALS: BP 115/56; PULSE 86; RESP 19; TEMP 36.6; O2SAT 93
[2022-01-06 08:19] VITALS: O2SAT 93
[2022-01-06 08:36] LABS: INTERNATIONAL NORM RATIO 1.4 (0.9-1.1); Prothrombin Time 16.4 SEC (10.0-13.1)
[2022-01-06 08:38] LABS: Partial Thromboplastin Time 37.9 SEC (24.1-38.0)
[2022-01-06 09:01] LABS: Glucose, Whole Blood 134 mg/dL (60-115)
[2022-01-06] MEDS: Furosemide 20 MG TABLET PO (09:50)
[2022-01-06] MEDS: Metoprolol Tartrate 100 MG TABLET PO ×2 (09:50→21:50)
[2022-01-06] MEDS: Multivitamin TABLET 1 TAB PO (09:50)
[2022-01-06] MEDS: Escitalopram Oxalate 10 MG TABLET PO (09:50)
[2022-01-06] MEDS: Pregabalin 100 MG CAPSULE PO ×3 (09:50→21:47)
[2022-01-06] MEDS: Nystatin Cream 15 GM TUBE 1 APPL TOPICAL ×2 (09:51→21:50)
[2022-01-06] MEDS: 0.9 % Sodium Chloride Flush 3 ML SYRINGE IVFLUSH ×3 (09:51→21:49)
--- NOTE | 2022-01-06 10:28 | PC.NURSE ---
Patient was given meds 0950 with thickit. Anesthesia spoke with Dr Mendez. Procedure cancelled. Will be rescheduled for tomorrow 01/07/22
[2022-01-06 11:32] LABS: Glucose, Whole Blood 128 mg/dL (60-115)
[2022-01-06 12:00] VITALS: BP 156/70; PULSE 85; RESP 18; TEMP 36.5; O2SAT 93
--- NOTE | 2022-01-06 13:02 | MHC.CM.PN ---
Per MD rounds plan for patient to have ERCP today. Case Management will continue to follow for discharge planning needs.
--- NOTE | 2022-01-06 15:34 | P.PNIM_ITS ---
Subjective Subjective Date of Service: 01/06/22 Interval History: Offers no acute complaints, say no to pain, no other acute issues overnight Review of Systems Review of Systems: Yes all other systems are reviewed and are negative Physical Exam Vital Signs: Vital Signs: Last Vital Signs Temp 97.7 F 01/06/22 12:00 Pulse 85 01/06/22 12:00 Resp 18 01/06/22 12:00 BP 156/70 H 01/06/22 12:00 Pulse Ox 93 01/06/22 12:00 O2 Del Method 01/06/22 12:00 O2 Flow Rate 1 01/01/22 07:44 Oxygen Flow Rate 4 12/25/21 13:05 BMI result Body Mass Index 26.8 Const: Other: General resting comfortably in no acute distress. Neck supple no JVD. CVS regular rate rhythm, Respiratory lungs clear to auscultation, no respiratory distress, no wheeze, no rhonchi. Gastrointestinal abdomen soft, nontender, bowel sounds audible, scant bilious drainage and cholecystostomy tube, no guarding , no rigidity. Extremities no edema. Neuro nonfocal , moving all 4 extremity, speech clear. Skin no rash Objective Data Active Medications Acetaminophen (Acetaminophen 325 Mg Tablet) 650 mg PO Q6H PRN PRN Reason: Pain, Mild (Pain Scale 1-3) Acetaminophen (Acetaminophen Supp 650 Mg Supp.Rect) 650 mg [place] Q6H PRN PRN Reason: Fever Last Admin: 12/25/21 20:42 Dose: 650 mg Documented By: AMBROSIO Albuterol Sulfate (Albuterol Sulfate 90 Mcg 8 Gm Inhaler) 2 puff INHALE Q6H PRN PRN Reason: Shortness Of Breath Or Wheezing Atorvastatin Calcium (Atorvastatin Calcium 10 Mg Tablet) 10 mg PO BEDTIME [facility] Last Admin: 01/05/22 21:10 Dose: 10 mg Documented By: KAROLINE Bisacodyl (Bisacodyl 10 Mg Supp.Rect) 10 mg [place] DAILY PRN PRN Reason: Constipation Dextrose (Dextrose 50 % 25 Gm/50 Ml Syringe) 25 gm IVPUSH Q15M PRN; Protocol PRN Reason: per Hypoglycemia Standing Ord. Escitalopram Oxalate (Escitalopram Oxalate 10 Mg Tablet) 10 mg PO DAILY [facility] Last Admin: 01/06/22 09:50 Dose: 10 mg Documented By: BOOM Fentanyl (Fentanyl Citrate/Pf 100 Mcg/2 Ml Vial) 25 mcg IVPUSH Q5M PRN; Protocol PRN Reason: Pain, Moderate (Pain Scale 4-6 Furosemide (Furosemide 20 Mg Tablet) 20 mg PO DAILY [facility]; Protocol Last Admin: 01/06/22 09:50 Dose: 20 mg Documented By: BOOM Glucose (Glucose Gel 15 Gm Gel..Gram.) 15 gm PO Q15M PRN; Protocol PRN Reason: per Hypoglycemia Standing Ord. Diltiazem HCl 125 mg/ Sodium (Chloride) 125 mls @ 0 mls/hr IVCONT .Q0M [facility]; Protocol Last Titration: 01/03/22 10:59 Dose: 0 mg/hr, 0 mls/hr Documented By: FRAN Insulin Human Lispro (Insulin Lispro 100 Unit/Ml 3 Ml Vial) 0 unit SUBCUT QIDACHS [facility]; Protocol Last Admin: 01/06/22 12:35 Dose: Not Given Documented By: BOOM Non-Admin Reason: No Insulin Coverage Melatonin (Melatonin 3 Mg Tablet) 6 mg PO BEDTIME PRN PRN Reason: Insomnia Metoprolol Tartrate (Metoprolol Tartrate 100 Mg Tablet) 100 mg PO BID [facility]; Protocol Last Admin: 01/06/22 09:50 Dose: 100 mg Documented By: BOOM Mirtazapine (Mirtazapine 7.5 Mg Tablet) 7.5 mg PO BEDTIME [facility] Last Admin: 01/05/22 21:09 Dose: 7.5 mg Documented By: KAROLINE Multivitamins/Vitamin C (Multivitamin Tablet) 1 tab PO DAILY [facility] Last Admin: 01/06/22 09:50 Dose: 1 tab Documented By: BOOM Nystatin (Nystatin Cream 15 Gm Tube) 1 appl TOPICAL BID [facility]; Protocol Last Admin: 01/06/22 09:51 Dose: 1 appl Documented By: BOOM Ondansetron HCl (Ondansetron Hcl 4 Mg/2 Ml Vial) 4 mg IVPUSH ONCE PRN PRN Reason: Nausea and Vomiting Oxycodone HCl (Oxycodone Hcl Immed Release 5 Mg Tablet) 5 mg PO ONCE PRN PRN Reason: Pain, Severe (Pain Scale 7-10) Pharmacy Consult (Consult Rx Perform Med Rec) 1 each MISCELLANE ONCE PRN PRN Reason: Consult order Potassium Chloride (Potassium Chloride Er 20 Meq Tab.Er.Prt) 40 meq PO DAILY [facility] Last Admin: 01/06/22 09:51 Dose: Not Given Documented By: BOOM Non-Admin Reason: cannot be crushed Pregabalin (Pregabalin 100 Mg Capsule) 100 mg PO TID [facility] Last Admin: 01/06/22 09:50 Dose: 100 mg Documented By: BOOM Senna (Sennosides 8.6 Mg Tablet) 17.2 mg PO BEDTIME PRN PRN Reason: Constipation Senna (Sennosides 8.6 Mg Tablet) 17.2 mg PO DAILY PRN PRN Reason: Constipation Sodium Chloride (0.9 % Sodium Chloride Flush 3 Ml Syringe) 3 ml IVFLUSH QSHIFT [facility] Last Admin: 01/06/22 09:51 Dose: 3 ml Documented By: BOOM Trazodone HCl (Trazodone Hcl 50 Mg Tablet) 50 mg PO BEDTIME [facility] Last Admin: 01/05/22 21:10 Dose: 50 mg Documented By: KAROLINE Labs CBC & Chem 7: 01/04/22 06:49 01/04/22 06:49 Labs: Laboratory Results - last 24 hr 01/05/22 01/05/22 01/05/22 15:04 15:58 19:02 PT INR APTT POC Glucose 129 H 150 H Blood Type A Positive Antibody Screen NEGATIVE 01/06/22 01/06/22 01/06/22 08:14 08:14 08:57 PT 16.4 H INR 1.4 H APTT 37.9 Cancelled POC Glucose 134 H Blood Type Antibody Screen 01/06/22 11:20 PT INR APTT POC Glucose 128 H Blood Type Antibody Screen Assessment and Plan (1) Acute cholecystitis due to biliary calculus: Status: Acute (2) Persistent atrial fibrillation: Status: Acute (3) Bacteremia due to Gram-negative bacteria: Status: Acute Plan 71-year-old female with a past medical history of hypertension, hyperlipidemia, diabetes, CAD, CHF, AFib, anxiety, depression, schizoaffective disorder, history of bilateral lower extremity DVT, asthma, osteoarthritis, dorsalgia, prison resident; presented to the hospital with a chief complaint of altered mental status.? Noted to have following Acute cholecystitis Denies abdominal pain, status post Cholecystostomy tube placed by IR 12/31, abdominal ultrasound 01/05 showed choledocholithiasis with increase caliber of the distal common bile duct, sludge and stones redemonstrated within the thick-walled gallbladder , case discussed with and Dr. Lane he recommend ERCP waiting to get consent from son. Ecoli Bacteremia ESBL + Secondary to cholecystitis Seen by ID, on meropenem end date 01/13 midline placed 01/01 AFib with RVR Ventricular rate in mid 80s on cardizem drip, will resume by mouth Cardizem, wean IV Cardizem drip, continue metoprolol 100 bid, dose increased this admission cardiology following xarelto held for ERCP Hypokalemia/hypo magnesemia Will replace potassium and magnesium and Follow level at am Toxic metabolic encephalopathy.? secondary to bacteremia ,baseline confusion Hypernatremia. Resolved likely from hypovolemia CAP, Right lower lobe pneumonia Suspected aspiration.? continue meropenem speech evaluation recommend ground diet with thin liquids with Aspiration precautions. Transaminitis Likely in setting of sepsis/cholecystitis LFTs back to normal ANABELL. Resolved Likely prerenal.? Avoid nephrotoxins.? History of HFpEF Resume Lasix History of diabetes. metformin, lantus on hold SSI, ada diet History of hypertension bp stable Continue metoprolol and Cardizem Norvasc on hold History of anxiety/depression/schizoaffective disorder Continue home clonazepam/mirtazapine DVT prophylaxis:? Xarelto on hold will place on compression Code status:? Full Code.? Patient has MOLST form dispo - to return to [facility] with PICC to complete abx when medically stable Continue hospitalization for Gram-negative bacteremia requiring IV antibiotics and need ERCP for choledocholithiasis Quality Stroke Does the patient have a stroke diagnosis?: No VTE Prior VTE?: No VTE Risk Level:: Medical - moderate - high VTE Device Contraindication: Treatment Not Indicated VTE Drug Contraindication: N/A - Med Ordered
[2022-01-06 16:00] VITALS: BP 134/90; PULSE 79; RESP 17; TEMP 36.4; O2SAT 95
[2022-01-06 16:53] LABS: Glucose, Whole Blood 112 mg/dL (60-115)
[2022-01-06] MEDS: Magnesium Sulfate/D5W 1 GM/100 ML PIGGYBACK IV (17:16)
[2022-01-06] MEDS: Potassium Chloride Packet 20 MEQ PACKET PO (17:16)
[2022-01-06 20:00] VITALS: BP 130/70; PULSE 83; RESP 17; TEMP 36.3; O2SAT 95
[2022-01-06 21:13] LABS: Glucose, Whole Blood 122 mg/dL (60-115)
[2022-01-06] MEDS: traZODone HCL 50 MG TABLET PO (21:47)
[2022-01-06] MEDS: Atorvastatin Calcium 10 MG TABLET PO (21:48)
[2022-01-06] MEDS: Mirtazapine 7.5 MG TABLET PO (21:48)
[2022-01-07] VITALS (14 sets, daily range): BP systolic 113–151; BP diastolic 57–99; PULSE 76–97; RESP 14–18; TEMP 36.1–37.1; O2SAT 93–98
[2022-01-07 06:57] LABS: INTERNATIONAL NORM RATIO 1.3 (0.9-1.1); Prothrombin Time 15.6 SEC (10.0-13.1)
[2022-01-07 07:09] LABS: Glucose, Whole Blood 118 mg/dL (60-115)
[2022-01-07 07:19] LABS: Alanine Aminotransferase 12 U/L (0-31); Albumin Level 2.6 g/dL (3.5-5.0); Alkaline Phosphatase 73 U/L (39-117); Anion Gap 12 (12-20); Aspartate Amino Transferase 16 U/L (5-31); Bilirubin Direct 0.3 mg/dL (0.0-0.5); Bilirubin Total 0.6 mg/dL (0.0-1.0); Blood Urea Nitrogen 8 mg/dL (9-16); Calcium 7.7 mg/dL (8.4-10.2); Carbon Dioxide 33 mmol/L (22-29); Chloride 97 mmol/L (96-108); Estimated Glomerular Filt Rate > 60; Glucose Random 129 mg/dL (60-115); Magnesium 1.5 mg/dL (1.6-2.6); Potassium 3.2 mmol/L (3.3-5.1); Sodium 139 mmol/L (135-145); Total Protein 5.9 g/dL (6.5-8.0)
[2022-01-07] MEDS: Magnesium Sulfate/H2O 2 GM/50 ML PIGGYBACK IV (08:27)
[2022-01-07] MEDS: Potassium Chloride/H20 10 MEQ/100 ML PIGGYBACK 100 MEQ IV ×2 (09:15→10:23)
[2022-01-07] MEDS: Nystatin Cream 15 GM TUBE 1 APPL TOPICAL ×2 (10:24→21:23)
--- NOTE | 2022-01-07 10:59 | HO.ANESPROP2 ---
[facility] Active Problems Active Problems: All Active Problems (Updated 12/30/21 @ 13:54 by Uma San MD) Acute cholecystitis due to biliary calculus (Acute) Persistent atrial fibrillation (Acute) Bacteremia due to Gram-negative bacteria (Acute) Cholelithiasis (Acute) Fever (Acute) Hypoxia (Acute) Leukocytosis (Acute) Elevated liver enzymes (Acute) Acidosis, lactic (Acute) Aspiration pneumonia (Acute) Afib (Acute) ANABELL (acute kidney injury) (Acute) Acute dehydration (Acute) Osteoarthritis of knees, bilateral (Acute) Allergic rhinitis (Acute) Hypercholesterolemia (Acute) Acute UTI (Acute) Pressure ulcer of coccygeal region (Acute) Skin infection (Acute) Lumbar degenerative disc disease (Acute) Derangement of left knee (Acute) DMII (diabetes mellitus, type 2) (Acute) KRISHAN (generalized anxiety disorder) (Acute) Osteoarthritis, knee (Acute) Insomnia (Acute) Neuropathy (Acute) Chronic cystitis (Acute) Past Medical History Medical History Afib Bacteremia due to Gram-negative bacteria DVT, bilateral lower limbs Hypercholesterolemia Lumbar degenerative disc disease Recurrent UTI Type 2 diabetes mellitus with hyperglycemia Family History Family History Father Diabetes Heart disease Mother Heart disease Son Opiate addiction Family history of problems with anesthesia: No Surgical History Surgical History History of lumpectomy of right breast History of tubal ligation Social History Social History Household Members: None Household Members Other:: Brought to ER by son with whom she lives Housing: Shelter Do you presently have visiting nurse or other home services: No Unable to assess alcohol history related to: Unknown Alcohol intake: unknown Patient Tobacco Use Status: Never used Tobacco e-Cigarette/Vaping Use: Never Used Second Hand Smoke Exposure: No Advance Directives Date on File: 01/09/21 service: No Current occupational status: retired Cognitive needs: Yes (Electric Wheel Chair) Hearing needs: Yes (Earring Aids) Vision needs: Yes (Glasses) Meds Allergies Allergy/AdvReac Type Severity Reaction Status Date / Time Iodinated Contrast Media Allergy Severe THROAT Verified 12/29/21 09:41 [IV Dye, Iodine Containing CLOSES Contrast ] UP/SWELLIN iodine [IODINE] Allergy Severe ANAPHYLAXIS Verified 12/29/21 09:41 sulfamethoxazole Allergy Intermediate rash face Verified 10/17/21 10:17 [From Bactrim] trimethoprim [From Bactrim] Allergy Intermediate rash face Verified 10/17/21 10:17 quetiapine [From SEROQUEL] Allergy Unknown SWELLING Verified 10/17/21 10:17 apixaban [From Eliquis] AdvReac Intermediate Diarrhea Verified 10/17/21 10:17 amoxicillin [Augmentin] AdvReac Unknown Diarrhea Verified 12/29/21 09:45 clavulanic acid [Augmentin] AdvReac Unknown Diarrhea Verified 12/29/21 09:45 lisinopril [LISINOPRIL] AdvReac Unknown Cough Verified 12/29/21 09:45 prednisone [PREDNISONE] AdvReac Unknown INCREASE Verified 12/29/21 09:41 BLOOD PRESSURE Active Medications: Current Medications Acetaminophen (Acetaminophen 325 Mg Tablet) 650 mg PO Q6H PRN PRN Reason: Pain, Mild (Pain Scale 1-3) Acetaminophen (Acetaminophen Supp 650 Mg Supp.Rect) 650 mg NE Q6H PRN PRN Reason: Fever Last Admin: 12/25/21 20:42 Dose: 650 mg Albuterol Sulfate (Albuterol Sulfate 90 Mcg 8 Gm Inhaler) 2 puff INHALE Q6H PRN PRN Reason: Shortness Of Breath Or Wheezing Atorvastatin Calcium (Atorvastatin Calcium 10 Mg Tablet) 10 mg PO BEDTIME [facility] Last Admin: 01/06/22 21:48 Dose: 10 mg Bisacodyl (Bisacodyl 10 Mg Supp.Rect) 10 mg NE DAILY PRN PRN Reason: Constipation Dextrose (Dextrose 50 % 25 Gm/50 Ml Syringe) 25 gm IVPUSH Q15M PRN; Protocol PRN Reason: per Hypoglycemia Standing Ord. Escitalopram Oxalate (Escitalopram Oxalate 10 Mg Tablet) 10 mg PO DAILY [facility] Last Admin: 01/07/22 08:07 Dose: Not Given Fentanyl (Fentanyl Citrate/Pf 100 Mcg/2 Ml Vial) 25 mcg IVPUSH Q5M PRN; Protocol PRN Reason: Pain, Moderate (Pain Scale 4-6 Furosemide (Furosemide 20 Mg Tablet) 20 mg PO DAILY [facility]; Protocol Last Admin: 01/07/22 08:07 Dose: Not Given Glucose (Glucose Gel 15 Gm Gel..Gram.) 15 gm PO Q15M PRN; Protocol PRN Reason: per Hypoglycemia Standing Ord. Meropenem 1 gm/ Sodium (Chloride) 100 mls @ 200 mls/hr IV Q8H [facility] Last Infusion: 01/07/22 09:16 Dose: Infused Potassium Cl/Dextrose/Lact Ringer's () 20 meq in 1,000 mls @ 80 mls/hr IVCONT .[id number] [facility] Insulin Human Lispro (Insulin Lispro 100 Unit/Ml 3 Ml Vial) 0 unit SUBCUT QIDACHS [facility]; Protocol Last Admin: 01/07/22 08:27 Dose: Not Given Melatonin (Melatonin 3 Mg Tablet) 6 mg PO BEDTIME PRN PRN Reason: Insomnia Metoprolol Tartrate (Metoprolol Tartrate 100 Mg Tablet) 100 mg PO BID [facility]; Protocol Last Admin: 01/07/22 08:07 Dose: Not Given Mirtazapine (Mirtazapine 7.5 Mg Tablet) 7.5 mg PO BEDTIME [facility] Last Admin: 01/06/22 21:48 Dose: 7.5 mg Multivitamins/Vitamin C (Multivitamin Tablet) 1 tab PO DAILY [facility] Last Admin: 01/07/22 08:07 Dose: Not Given Nystatin (Nystatin Cream 15 Gm Tube) 1 appl TOPICAL BID [facility]; Protocol Last Admin: 01/07/22 10:24 Dose: 1 appl Ondansetron HCl (Ondansetron Hcl 4 Mg/2 Ml Vial) 4 mg IVPUSH ONCE PRN PRN Reason: Nausea and Vomiting Oxycodone HCl (Oxycodone Hcl Immed Release 5 Mg Tablet) 5 mg PO ONCE PRN PRN Reason: Pain, Severe (Pain Scale 7-10) Pharmacy Consult (Consult Rx Perform Med Rec) 1 each MISCELLANE ONCE PRN PRN Reason: Consult order Potassium Chloride (Potassium Chloride Packet 20 Meq Packet) 40 meq PO DAILY [facility] Last Admin: 01/07/22 08:08 Dose: Not Given Pregabalin (Pregabalin 100 Mg Capsule) 100 mg PO TID [facility] Last Admin: 01/07/22 09:17 Dose: Not Given Senna (Sennosides 8.6 Mg Tablet) 17.2 mg PO BEDTIME PRN PRN Reason: Constipation Senna (Sennosides 8.6 Mg Tablet) 17.2 mg PO DAILY PRN PRN Reason: Constipation Sodium Chloride (0.9 % Sodium Chloride Flush 3 Ml Syringe) 3 ml IVFLUSH QSHIFT [facility] Last Admin: 01/07/22 08:45 Dose: Not Given Trazodone HCl (Trazodone Hcl 50 Mg Tablet) 50 mg PO BEDTIME [facility] Last Admin: 01/06/22 21:47 Dose: 50 mg Home Medications Medication Instructions Recorded Confirmed Last Taken Type albuterol sulfate 90 mcg/actuation 2 puff inhalation Q6H PRN 06/18/20 12/25/21 10/17/21 History aerosol inhaler Shortness Of Breath Or Wheezing Lactobacil.acidophilus-Bifido.animalis 1 cap PO BID 10/17/21 12/25/21 12/24/21 History 5 billion cell sprinkle capsule (Probiotic) acetaminophen 325 mg tablet 650 mg PO Q4H PRN Fever Or Pain 10/17/21 12/25/21 12/24/21 History bisacodyl 10 mg rectal suppository 10 mg NE DAILY PRN Constipation 10/17/21 12/25/21 Unknown History loperamide 2 mg tablet 2 mg PO Q6H PRN Loose Stool 10/17/21 12/25/21 10/26/21 History metoprolol succinate 25 mg 25 mg PO DAILY 10/17/21 12/25/21 12/24/21 History tablet,extended release 24 hr multivitamin with minerals 1 tab PO DAILY 10/17/21 12/25/21 12/24/21 History sennosides 8.6 mg tablet (senna) 17.2 mg PO DAILY PRN Constipation 10/17/21 12/25/21 Unknown History trazodone 50 mg tablet 50 mg PO BEDTIME 10/17/21 12/25/21 12/24/21 History furosemide 20 mg tablet 1 tab PO DAILY 12/25/21 12/25/21 12/24/21 History insulin glargine 100 unit/mL (3 20 unit subcut DAILY 12/25/21 12/25/21 12/24/21 History mL) subcutaneous pen (Lantus Solostar U-100 Insulin) menthol 4 % topical gel (Biofreeze 1 appl topical BID 12/25/21 12/25/2112/25/22 History (menthol)) mirtazapine 7.5 mg tablet 7.5 mg PO BEDTIME 12/25/21 12/25/21 12/24/21 History nystatin 100,000 unit/gram topical 1 appl topical BID 12/25/21 12/25/21 12/25/21 History cream potassium chloride 10 mEq 1 cap PO DAILY 12/25/21 12/25/21 12/22/21 History capsule,extended release potassium chloride 20 mEq 1 tab PO BID 12/25/21 12/25/21 12/25/21 History tablet,extended release(part/cryst) rivaroxaban 20 mg tablet (Xarelto) 1 tab PO DAILY 12/25/21 12/25/21 12/24/21 History Exam Exam Date and Time: January 07, 2022 1059 Height,Weight and Vital Signs: Height 5 ft 8 in Weight 80 kg Last Vital Signs Temp 97.3 F 01/07/22 08:00 Pulse 89 01/07/22 08:00 Resp 16 01/07/22 08:00 BP 130/84 01/07/22 08:00 Pulse Ox 94 01/07/22 08:19 O2 Del Method 01/07/22 08:19 O2 Flow Rate 1 01/01/22 07:44 Oxygen Flow Rate 4 12/25/21 13:05 Pertinent Lab Results Pertinent Lab Results: Laboratory Tests 12/25/21 12/25/21 12/25/21 13:55 13:55 13:55 WBC 16.8 H RBC 3.53 L Hgb 11.0 L Hct 33.7 L MCV 95.5 MCH 31.2 MCHC 32.6 RDW 14.6 Plt Count 168 D MPV 11.1 Immature Gran % (Auto) Cancelled Neut % (Auto) Cancelled Lymph % (Auto) Cancelled [place] % (Auto) Cancelled Eos % (Auto) Cancelled Baso % (Auto) Cancelled Lymph # (Auto) Cancelled [place] # (Auto) Cancelled Eos # (Auto) Cancelled Baso # (Auto) Cancelled Abs Immat Gran (auto) Cancelled Absolute Neuts (auto) Cancelled Absolute Nucleated RBC 0.000 Nucleated RBC % (auto) 0.0 Neutrophils % (Manual) 79 H Band Neutrophils % 17 H Lymphocytes % (Manual) 3 L Monocytes % (Manual) 1 L Abs Neuts (Manual) 16.1 H Lymphocytes # (Manual) 0.5 L Monocytes # (Manual) 0.2 Toxic Vacuolation PRESENT Platelet Estimate NORMAL Large Platelets Plt Morphology Comment NORMAL RBC Morphology NOTED Ovalocytes 1+ (5-14) [place] Cells 2+ (3-5) Smear Tech's Comments PT INR APTT aPTT Heparin Protocol VBG pH VBG pCO2 VBG pO2 VBG HCO3 VBG O2 Saturation VBG Base Excess Sodium Potassium Chloride Carbon Dioxide Anion Gap BUN Creatinine Estim Creat Clear Calc Estimated GFR POC Glucose Random Glucose Lactic Acid Lactic Acid F/U @ 2Hr Calcium Magnesium Total Bilirubin Direct Bilirubin AST ALT Alkaline Phosphatase Ammonia 24 Troponin I High Sens B-Natriuretic Peptide 310 H Total Protein Albumin Urine Color Urine Appearance Urine pH Ur Specific [place] Urine Protein Urine Glucose (UA) Urine Ketones Urine Blood Urine Nitrite Ur Leukocyte Esterase Urine RBC Urine WBC Ur Squamous Epith Cells Amorphous Sediment Urine Bacteria RBC Casts Vancomycin Trough COVID-19 (ELLEN) COVID-19 Clin Com Hepatitis A IgM Ab Hep Bs Antigen Hep Bs Antibody Hep B Core Total Ab Hepatitis C Ab (EIA) Blood Type Antibody Screen 12/25/21 12/25/21 12/25/21 13:55 13:55 13:55 WBC RBC Hgb Hct MCV MCH MCHC RDW Plt Count MPV Immature Gran % (Auto) Neut % (Auto) Lymph % (Auto) [place] % (Auto) Eos % (Auto) Baso % (Auto) Lymph # (Auto) [place] # (Auto) Eos # (Auto) Baso # (Auto) Abs Immat Gran (auto) Absolute Neuts (auto) Absolute Nucleated RBC Nucleated RBC % (auto) Neutrophils % (Manual) Band Neutrophils % Lymphocytes % (Manual) Monocytes % (Manual) Abs Neuts (Manual) Lymphocytes # (Manual) Monocytes # (Manual) Toxic Vacuolation Platelet Estimate Large Platelets Plt Morphology Comment RBC Morphology Ovalocytes [place] Cells Smear Tech's Comments PT 36.8 H INR 3.1 H APTT aPTT Heparin Protocol VBG pH VBG pCO2 VBG pO2 VBG HCO3 VBG O2 Saturation VBG Base Excess Sodium Potassium Chloride Carbon Dioxide Anion Gap BUN Creatinine Estim Creat Clear Calc Estimated GFR POC Glucose Random Glucose Lactic Acid 2.5 H* Lactic Acid F/U @ 2Hr Calcium Magnesium Total Bilirubin Direct Bilirubin AST ALT Alkaline Phosphatase Ammonia Troponin I High Sens 184.6 H* B-Natriuretic Peptide Total Protein Albumin Urine Color Urine Appearance Urine pH Ur Specific [place] Urine Protein Urine Glucose (UA) Urine Ketones Urine Blood Urine Nitrite Ur Leukocyte Esterase Urine RBC Urine WBC Ur Squamous Epith Cells Amorphous Sediment Urine Bacteria RBC Casts Vancomycin Trough COVID-19 (ELLEN) COVID-19 Clin Com Hepatitis A IgM Ab Hep Bs Antigen Hep Bs Antibody Hep B Core Total Ab Hepatitis C Ab (EIA) Blood Type Antibody Screen 12/25/21 12/25/21 12/25/21 13:55 14:03 14:35 WBC RBC Hgb Hct MCV MCH MCHC RDW Plt Count MPV Immature Gran % (Auto) Neut % (Auto) Lymph % (Auto) [place] % (Auto) Eos % (Auto) Baso % (Auto) Lymph # (Auto) [place] # (Auto) Eos # (Auto) Baso # (Auto) Abs Immat Gran (auto) Absolute Neuts (auto) Absolute Nucleated RBC Nucleated RBC % (auto) Neutrophils % (Manual) Band Neutrophils % Lymphocytes % (Manual) Monocytes % (Manual) Abs Neuts (Manual) Lymphocytes # (Manual) Monocytes # (Manual) Toxic Vacuolation Platelet Estimate Large Platelets Plt Morphology Comment RBC Morphology Ovalocytes [place] Cells Smear Tech's Comments PT INR APTT aPTT Heparin Protocol VBG pH 7.37 VBG pCO2 42 VBG pO2 58 VBG HCO3 24 VBG O2 Saturation 85.0 VBG Base Excess -0.4 Sodium Potassium Chloride Carbon Dioxide Anion Gap BUN Creatinine Estim Creat Clear Calc Estimated GFR POC Glucose Random Glucose Lactic Acid Lactic Acid F/U @ 2Hr Calcium Magnesium Total Bilirubin Direct Bilirubin AST ALT Alkaline Phosphatase Ammonia Troponin I High Sens B-Natriuretic Peptide Total Protein Albumin Urine Color ORANGE A Urine Appearance CLOUDY Urine pH 5.5 Ur Specific [place] 1.025 Urine Protein 2+ H Urine Glucose (UA) 250 H Urine Ketones 5 Urine Blood 3+ H Urine Nitrite SEE NOTE Ur Leukocyte Esterase SEE NOTE Urine RBC 0-2 Urine WBC 1-4 Ur Squamous Epith Cells 1+ Amorphous Sediment 3+ Urine Bacteria 4+ RBC Casts 5-9 Vancomycin Trough COVID-19 (ELLEN) Negative COVID-19 Clin Com See Note Hepatitis A IgM Ab Hep Bs Antigen Hep Bs Antibody Hep B Core Total Ab Hepatitis C Ab (EIA) Blood Type Antibody Screen 12/25/21 12/25/21 12/25/21 14:46 16:32 20:17 WBC RBC Hgb Hct MCV MCH MCHC RDW Plt Count MPV Immature Gran % (Auto) Neut % (Auto) Lymph % (Auto) [place] % (Auto) Eos % (Auto) Baso % (Auto) Lymph # (Auto) [place] # (Auto) Eos # (Auto) Baso # (Auto) Abs Immat Gran (auto) Absolute Neuts (auto) Absolute Nucleated RBC Nucleated RBC % (auto) Neutrophils % (Manual) Band Neutrophils % Lymphocytes % (Manual) Monocytes % (Manual) Abs Neuts (Manual) Lymphocytes # (Manual) Monocytes # (Manual) Toxic Vacuolation Platelet Estimate Large Platelets Plt Morphology Comment RBC Morphology Ovalocytes [place] Cells Smear Tech's Comments PT INR APTT aPTT Heparin Protocol VBG pH VBG pCO2 VBG pO2 VBG HCO3 VBG O2 Saturation VBG Base Excess Sodium 143 Potassium 3.9 Chloride 107 Carbon Dioxide 25 Anion Gap 15 BUN 44 H D Creatinine 1.52 H Estim Creat Clear Calc 36.0 Estimated GFR 33 POC Glucose Random Glucose 167 H Lactic Acid Lactic Acid F/U @ 2Hr 1.6 Calcium 7.7 L D Magnesium 1.5 L Total Bilirubin 2.7 H Direct Bilirubin 2.1 H AST 127 H ALT 186 H Alkaline Phosphatase 210 H D Ammonia Troponin I High Sens B-Natriuretic Peptide Total Protein 6.4 L Albumin 3.1 L Urine Color Urine Appearance Urine pH Ur Specific [place] Urine Protein Urine Glucose (UA) Urine Ketones Urine Blood Urine Nitrite Ur Leukocyte Esterase Urine RBC Urine WBC Ur Squamous Epith Cells Amorphous Sediment Urine Bacteria RBC Casts Vancomycin Trough COVID-19 (ELLEN) COVID-19 Clin Com Hepatitis A IgM Ab Nonreactive Hep Bs Antigen Negative Hep Bs Antibody NONREACTIVE Hep B Core Total Ab Nonreactive Hepatitis C Ab (EIA) Nonreactive Blood Type Antibody Screen 12/25/21 12/26/21 12/26/21 21:22 06:49 06:53 WBC 9.3 RBC 3.14 L Hgb 9.7 L Hct 30.6 L MCV 97.5 MCH 30.9 MCHC 31.7 RDW 14.6 Plt Count 123 L D MPV 11.9 Immature Gran % (Auto) Cancelled Neut % (Auto) Cancelled Lymph % (Auto) Cancelled [place] % (Auto) Cancelled Eos % (Auto) Cancelled Baso % (Auto) Cancelled Lymph # (Auto) Cancelled [place] # (Auto) Cancelled Eos # (Auto) Cancelled Baso # (Auto) Cancelled Abs Immat Gran (auto) Cancelled Absolute Neuts (auto) Cancelled Absolute Nucleated RBC 0.000 Nucleated RBC % (auto) 0.0 Neutrophils % (Manual) 96 H Band Neutrophils % 0 L Lymphocytes % (Manual) 4 L Monocytes % (Manual) Abs Neuts (Manual) 8.9 H Lymphocytes # (Manual) 0.4 L Monocytes # (Manual) Toxic Vacuolation Platelet Estimate SLIGHTLY DECREASED Large Platelets PRESENT Plt Morphology Comment NOTED RBC Morphology NOTED Ovalocytes 1+ (5-14) [place] Cells Smear Tech's Comments PT INR APTT aPTT Heparin Protocol VBG pH VBG pCO2 VBG pO2 VBG HCO3 VBG O2 Saturation VBG Base Excess Sodium Potassium Chloride Carbon Dioxide Anion Gap BUN Creatinine Estim Creat Clear Calc Estimated GFR POC Glucose 161 H 130 H Random Glucose Lactic Acid Lactic Acid F/U @ 2Hr Calcium Magnesium Total Bilirubin Direct Bilirubin AST ALT Alkaline Phosphatase Ammonia Troponin I High Sens B-Natriuretic Peptide Total Protein Albumin Urine Color Urine Appearance Urine pH Ur Specific [place] Urine Protein Urine Glucose (UA) Urine Ketones Urine Blood Urine Nitrite Ur Leukocyte Esterase Urine RBC Urine WBC Ur Squamous Epith Cells Amorphous Sediment Urine Bacteria RBC Casts Vancomycin Trough COVID-19 (ELLEN) COVID-19 Clin Com Hepatitis A IgM Ab Hep Bs Antigen Hep Bs Antibody Hep B Core Total Ab Hepatitis C Ab (EIA) Blood Type Antibody Screen 12/26/21 12/26/21 12/26/21 06:53 14:02 20:44 WBC RBC Hgb Hct MCV MCH MCHC RDW Plt Count MPV Immature Gran % (Auto) Neut % (Auto) Lymph % (Auto) [place] % (Auto) Eos % (Auto) Baso % (Auto) Lymph # (Auto) [place] # (Auto) Eos # (Auto) Baso # (Auto) Abs Immat Gran (auto) Absolute Neuts (auto) Absolute Nucleated RBC Nucleated RBC % (auto) Neutrophils % (Manual) Band Neutrophils % Lymphocytes % (Manual) Monocytes % (Manual) Abs Neuts (Manual) Lymphocytes # (Manual) Monocytes # (Manual) Toxic Vacuolation Platelet Estimate Large Platelets Plt Morphology Comment RBC Morphology Ovalocytes [place] Cells Smear Tech's Comments PT INR APTT aPTT Heparin Protocol VBG pH VBG pCO2 VBG pO2 VBG HCO3 VBG O2 Saturation VBG Base Excess Sodium 146 H Potassium 3.6 Chloride 113 H Carbon Dioxide 24 Anion Gap 13 BUN 37 H Creatinine 1.17 Estim Creat Clear Calc 46.8 Estimated GFR 45 POC Glucose 132 H 139 H Random Glucose 144 H Lactic Acid Lactic Acid F/U @ 2Hr Calcium 7.3 L Magnesium Total Bilirubin Direct Bilirubin AST ALT Alkaline Phosphatase Ammonia Troponin I High Sens B-Natriuretic Peptide Total Protein Albumin Urine Color Urine Appearance Urine pH Ur Specific [place] Urine Protein Urine Glucose (UA) Urine Ketones Urine Blood Urine Nitrite Ur Leukocyte Esterase Urine RBC Urine WBC Ur Squamous Epith Cells Amorphous Sediment Urine Bacteria RBC Casts Vancomycin Trough COVID-19 (ELLEN) COVID-19 Clin Com Hepatitis A IgM Ab Hep Bs Antigen Hep Bs Antibody Hep B Core Total Ab Hepatitis C Ab (EIA) Blood Type Antibody Screen 12/27/21 12/27/21 12/27/21 06:01 06:01 07:50 WBC RBC Hgb Hct MCV MCH MCHC RDW Plt Count MPV Immature Gran % (Auto) Neut % (Auto) Lymph % (Auto) [place] % (Auto) Eos % (Auto) Baso % (Auto) Lymph # (Auto) [place] # (Auto) Eos # (Auto) Baso # (Auto) Abs Immat Gran (auto) Absolute Neuts (auto) Absolute Nucleated RBC Nucleated RBC % (auto) Neutrophils % (Manual) Band Neutrophils % Lymphocytes % (Manual) Monocytes % (Manual) Abs Neuts (Manual) Lymphocytes # (Manual) Monocytes # (Manual) Toxic Vacuolation Platelet Estimate Large Platelets Plt Morphology Comment RBC Morphology Ovalocytes [place] Cells Smear Tech's Comments PT INR APTT aPTT Heparin Protocol VBG pH VBG pCO2 VBG pO2 VBG HCO3 VBG O2 Saturation VBG Base Excess Sodium 148 H Potassium 3.7 Chloride 114 H Carbon Dioxide 22 Anion Gap 16 BUN 28 H Creatinine 0.89 0.91 Estim Creat Clear Calc 60.6 59.2 Estimated GFR > 60 > 60 POC Glucose 149 H Random Glucose 181 H Lactic Acid Lactic Acid F/U @ 2Hr Calcium 7.8 L D Magnesium Total Bilirubin Direct Bilirubin AST ALT Alkaline Phosphatase Ammonia Troponin I High Sens B-Natriuretic Peptide Total Protein Albumin Urine Color Urine Appearance Urine pH Ur Specific [place] Urine Protein Urine Glucose (UA) Urine Ketones Urine Blood Urine Nitrite Ur Leukocyte Esterase Urine RBC Urine WBC Ur Squamous Epith Cells Amorphous Sediment Urine Bacteria RBC Casts Vancomycin Trough COVID-19 (ELLEN) COVID-19 Clin Com Hepatitis A IgM Ab Hep Bs Antigen Hep Bs Antibody Hep B Core Total Ab Hepatitis C Ab (EIA) Blood Type Antibody Screen 12/27/21 12/27/21 12/27/21 11:02 12:51 15:13 WBC RBC Hgb Hct MCV MCH MCHC RDW Plt Count MPV Immature Gran % (Auto) Neut % (Auto) Lymph % (Auto) [place] % (Auto) Eos % (Auto) Baso % (Auto) Lymph # (Auto) [place] # (Auto) Eos # (Auto) Baso # (Auto) Abs Immat Gran (auto) Absolute Neuts (auto) Absolute Nucleated RBC Nucleated RBC % (auto) Neutrophils % (Manual) Band Neutrophils % Lymphocytes % (Manual) Monocytes % (Manual) Abs Neuts (Manual) Lymphocytes # (Manual) Monocytes # (Manual) Toxic Vacuolation Platelet Estimate Large Platelets Plt Morphology Comment RBC Morphology Ovalocytes [place] Cells Smear Tech's Comments PT INR APTT aPTT Heparin Protocol VBG pH VBG pCO2 VBG pO2 VBG HCO3 VBG O2 Saturation VBG Base Excess Sodium 149 H Potassium 3.1 L Chloride 114 H Carbon Dioxide 22 Anion Gap 16 BUN 28 H Creatinine 0.95 Estim Creat Clear Calc 56.8 Estimated GFR 57 POC Glucose 196 H 165 H Random Glucose 216 H Lactic Acid Lactic Acid F/U @ 2Hr Calcium 7.7 L Magnesium Total Bilirubin Direct Bilirubin AST ALT Alkaline Phosphatase Ammonia Troponin I High Sens B-Natriuretic Peptide Total Protein Albumin Urine Color Urine Appearance Urine pH Ur Specific [place] Urine Protein Urine Glucose (UA) Urine Ketones Urine Blood Urine Nitrite Ur Leukocyte Esterase Urine RBC Urine WBC Ur Squamous Epith Cells Amorphous Sediment Urine Bacteria RBC Casts Vancomycin Trough COVID-19 (ELLEN) COVID-19 Clin Com Hepatitis A IgM Ab Hep Bs Antigen Hep Bs Antibody Hep B Core Total Ab Hepatitis C Ab (EIA) Blood Type Antibody Screen 12/27/21 12/27/21 12/27/21 18:57 18:57 19:15 WBC RBC Hgb Hct MCV MCH MCHC RDW Plt Count MPV Immature Gran % (Auto) Neut % (Auto) Lymph % (Auto) [place] % (Auto) Eos % (Auto) Baso % (Auto) Lymph # (Auto) [place] # (Auto) Eos # (Auto) Baso # (Auto) Abs Immat Gran (auto) Absolute Neuts (auto) Absolute Nucleated RBC Nucleated RBC % (auto) Neutrophils % (Manual) Band Neutrophils % Lymphocytes % (Manual) Monocytes % (Manual) Abs Neuts (Manual) Lymphocytes # (Manual) Monocytes # (Manual) Toxic Vacuolation Platelet Estimate Large Platelets Plt Morphology Comment RBC Morphology Ovalocytes [place] Cells Smear Tech's Comments PT INR APTT aPTT Heparin Protocol VBG pH VBG pCO2 VBG pO2 VBG HCO3 VBG O2 Saturation VBG Base Excess Sodium 151 H Potassium 2.9 L Chloride 115 H Carbon Dioxide 24 Anion Gap 15 BUN 27 H Creatinine 0.85 Estim Creat Clear Calc 63.5 Estimated GFR > 60 POC Glucose 154 H Random Glucose 179 H Lactic Acid Lactic Acid F/U @ 2Hr Calcium 7.7 L Magnesium Total Bilirubin Direct Bilirubin AST ALT Alkaline Phosphatase Ammonia Troponin I High Sens B-Natriuretic Peptide Total Protein Albumin Urine Color Urine Appearance Urine pH Ur Specific [place] Urine Protein Urine Glucose (UA) Urine Ketones Urine Blood Urine Nitrite Ur Leukocyte Esterase Urine RBC Urine WBC Ur Squamous Epith Cells Amorphous Sediment Urine Bacteria RBC Casts Vancomycin Trough 5.7 L COVID-19 (ELLEN) COVID-19 Clin Com Hepatitis A IgM Ab Hep Bs Antigen Hep Bs Antibody Hep B Core Total Ab Hepatitis C Ab (EIA) Blood Type Antibody Screen 12/28/21 12/28/21 12/28/21 06:09 07:47 08:19 WBC RBC Hgb Hct MCV MCH MCHC RDW Plt Count MPV Immature Gran % (Auto) Neut % (Auto) Lymph % (Auto) [place] % (Auto) Eos % (Auto) Baso % (Auto) Lymph # (Auto) [place] # (Auto) Eos # (Auto) Baso # (Auto) Abs Immat Gran (auto) Absolute Neuts (auto) Absolute Nucleated RBC Nucleated RBC % (auto) Neutrophils % (Manual) Band Neutrophils % Lymphocytes % (Manual) Monocytes % (Manual) Abs Neuts (Manual) Lymphocytes # (Manual) Monocytes # (Manual) Toxic Vacuolation Platelet Estimate Large Platelets Plt Morphology Comment RBC Morphology Ovalocytes [place] Cells Smear Tech's Comments PT INR APTT aPTT Heparin Protocol VBG pH VBG pCO2 VBG pO2 VBG HCO3 VBG O2 Saturation VBG Base Excess Sodium 147 H Potassium 2.7 L Chloride 112 H Carbon Dioxide 25 Anion Gap 13 BUN 24 H Creatinine 0.85 0.82 Estim Creat Clear Calc 63.5 65.8 Estimated GFR > 60 > 60 POC Glucose 239 H Random Glucose 251 H Lactic Acid Lactic Acid F/U @ 2Hr Calcium 7.6 L Magnesium Total Bilirubin Direct Bilirubin AST ALT Alkaline Phosphatase Ammonia Troponin I High Sens B-Natriuretic Peptide Total Protein Albumin Urine Color Urine Appearance Urine pH Ur Specific [place] Urine Protein Urine Glucose (UA) Urine Ketones Urine Blood Urine Nitrite Ur Leukocyte Esterase Urine RBC Urine WBC Ur Squamous Epith Cells Amorphous Sediment Urine Bacteria RBC Casts Vancomycin Trough COVID-19 (ELLEN) COVID-19 Clin Com Hepatitis A IgM Ab Hep Bs Antigen Hep Bs Antibody Hep B Core Total Ab Hepatitis C Ab (EIA) Blood Type Antibody Screen 12/28/21 12/28/21 12/28/21 11:01 17:00 20:43 WBC RBC Hgb Hct MCV MCH MCHC RDW Plt Count MPV Immature Gran % (Auto) Neut % (Auto) Lymph % (Auto) [place] % (Auto) Eos % (Auto) Baso % (Auto) Lymph # (Auto) [place] # (Auto) Eos # (Auto) Baso # (Auto) Abs Immat Gran (auto) Absolute Neuts (auto) Absolute Nucleated RBC Nucleated RBC % (auto) Neutrophils % (Manual) Band Neutrophils % Lymphocytes % (Manual) Monocytes % (Manual) Abs Neuts (Manual) Lymphocytes # (Manual) Monocytes # (Manual) Toxic Vacuolation Platelet Estimate Large Platelets Plt Morphology Comment RBC Morphology Ovalocytes [place] Cells Smear Tech's Comments PT INR APTT aPTT Heparin Protocol VBG pH VBG pCO2 VBG pO2 VBG HCO3 VBG O2 Saturation VBG Base Excess Sodium Potassium Chloride Carbon Dioxide Anion Gap BUN Creatinine Estim Creat Clear Calc Estimated GFR POC Glucose 180 H 160 H 185 H Random Glucose Lactic Acid Lactic Acid F/U @ 2Hr Calcium Magnesium Total Bilirubin Direct Bilirubin AST ALT Alkaline Phosphatase Ammonia Troponin I High Sens B-Natriuretic Peptide Total Protein Albumin Urine Color Urine Appearance Urine pH Ur Specific [place] Urine Protein Urine Glucose (UA) Urine Ketones Urine Blood Urine Nitrite Ur Leukocyte Esterase Urine RBC Urine WBC Ur Squamous Epith Cells Amorphous Sediment Urine Bacteria RBC Casts Vancomycin Trough COVID-19 (ELLEN) COVID-19 Clin Com Hepatitis A IgM Ab Hep Bs Antigen Hep Bs Antibody Hep B Core Total Ab Hepatitis C Ab (EIA) Blood Type Antibody Screen 12/29/21 12/29/21 12/29/21 05:26 07:34 11:48 WBC RBC Hgb Hct MCV MCH MCHC RDW Plt Count MPV Immature Gran % (Auto) Neut % (Auto) Lymph % (Auto) [place] % (Auto) Eos % (Auto) Baso % (Auto) Lymph # (Auto) [place] # (Auto) Eos # (Auto) Baso # (Auto) Abs Immat Gran (auto) Absolute Neuts (auto) Absolute Nucleated RBC Nucleated RBC % (auto) Neutrophils % (Manual) Band Neutrophils % Lymphocytes % (Manual) Monocytes % (Manual) Abs Neuts (Manual) Lymphocytes # (Manual) Monocytes # (Manual) Toxic Vacuolation Platelet Estimate Large Platelets Plt Morphology Comment RBC Morphology Ovalocytes [place] Cells Smear Tech's Comments PT INR APTT aPTT Heparin Protocol VBG pH VBG pCO2 VBG pO2 VBG HCO3 VBG O2 Saturation VBG Base Excess Sodium Potassium Chloride Carbon Dioxide Anion Gap BUN Creatinine 0.76 Estim Creat Clear Calc 71.0 Estimated GFR > 60 POC Glucose 206 H 177 H Random Glucose Lactic Acid Lactic Acid F/U @ 2Hr Calcium Magnesium Total Bilirubin Direct Bilirubin AST ALT Alkaline Phosphatase Ammonia Troponin I High Sens B-Natriuretic Peptide Total Protein Albumin Urine Color Urine Appearance Urine pH Ur Specific [place] Urine Protein Urine Glucose (UA) Urine Ketones Urine Blood Urine Nitrite Ur Leukocyte Esterase Urine RBC Urine WBC Ur Squamous Epith Cells Amorphous Sediment Urine Bacteria RBC Casts Vancomycin Trough COVID-19 (ELLEN) COVID-19 Clin Com Hepatitis A IgM Ab Hep Bs Antigen Hep Bs Antibody Hep B Core Total Ab Hepatitis C Ab (EIA) Blood Type Antibody Screen 12/29/21 12/29/21 12/29/21 12:24 16:13 20:26 WBC RBC Hgb Hct MCV MCH MCHC RDW Plt Count MPV Immature Gran % (Auto) Neut % (Auto) Lymph % (Auto) [place] % (Auto) Eos % (Auto) Baso % (Auto) Lymph # (Auto) [place] # (Auto) Eos # (Auto) Baso # (Auto) Abs Immat Gran (auto) Absolute Neuts (auto) Absolute Nucleated RBC Nucleated RBC % (auto) Neutrophils % (Manual) Band Neutrophils % Lymphocytes % (Manual) Monocytes % (Manual) Abs Neuts (Manual) Lymphocytes # (Manual) Monocytes # (Manual) Toxic Vacuolation Platelet Estimate Large Platelets Plt Morphology Comment RBC Morphology Ovalocytes [place] Cells Smear Tech's Comments PT INR APTT aPTT Heparin Protocol VBG pH VBG pCO2 VBG pO2 VBG HCO3 VBG O2 Saturation VBG Base Excess Sodium 142 Potassium 2.9 L Chloride 107 Carbon Dioxide 25 Anion Gap 13 BUN 13 Creatinine 0.72 Estim Creat Clear Calc 74.9 Estimated GFR > 60 POC Glucose 142 H 177 H Random Glucose 182 H Lactic Acid Lactic Acid F/U @ 2Hr Calcium 7.6 L Magnesium Total Bilirubin Direct Bilirubin AST ALT Alkaline Phosphatase Ammonia Troponin I High Sens B-Natriuretic Peptide Total Protein Albumin Urine Color Urine Appearance Urine pH Ur Specific [place] Urine Protein Urine Glucose (UA) Urine Ketones Urine Blood Urine Nitrite Ur Leukocyte Esterase Urine RBC Urine WBC Ur Squamous Epith Cells Amorphous Sediment Urine Bacteria RBC Casts Vancomycin Trough COVID-19 (ELLEN) COVID-19 Clin Com Hepatitis A IgM Ab Hep Bs Antigen Hep Bs Antibody Hep B Core Total Ab Hepatitis C Ab (EIA) Blood Type Antibody Screen 12/30/21 12/30/21 12/30/21 05:45 05:45 07:07 WBC RBC Hgb Hct MCV MCH MCHC RDW Plt Count MPV Immature Gran % (Auto) Neut % (Auto) Lymph % (Auto) [place] % (Auto) Eos % (Auto) Baso % (Auto) Lymph # (Auto) [place] # (Auto) Eos # (Auto) Baso # (Auto) Abs Immat Gran (auto) Absolute Neuts (auto) Absolute Nucleated RBC Nucleated RBC % (auto) Neutrophils % (Manual) Band Neutrophils % Lymphocytes % (Manual) Monocytes % (Manual) Abs Neuts (Manual) Lymphocytes # (Manual) Monocytes # (Manual) Toxic Vacuolation Platelet Estimate Large Platelets Plt Morphology Comment RBC Morphology Ovalocytes [place] Cells Smear Tech's Comments PT INR APTT aPTT Heparin Protocol VBG pH VBG pCO2 VBG pO2 VBG HCO3 VBG O2 Saturation VBG Base Excess Sodium 138 Potassium 2.7 L Chloride 102 Carbon Dioxide 28 Anion Gap 11 L BUN 7 L Creatinine 0.72 0.70 Estim Creat Clear Calc 74.9 77.1 Estimated GFR > 60 > 60 POC Glucose 183 H Random Glucose 219 H Lactic Acid Lactic Acid F/U @ 2Hr Calcium 7.2 L Magnesium Total Bilirubin Direct Bilirubin AST ALT Alkaline Phosphatase Ammonia Troponin I High Sens B-Natriuretic Peptide Total Protein Albumin Urine Color Urine Appearance Urine pH Ur Specific [place] Urine Protein Urine Glucose (UA) Urine Ketones Urine Blood Urine Nitrite Ur Leukocyte Esterase Urine RBC Urine WBC Ur Squamous Epith Cells Amorphous Sediment Urine Bacteria RBC Casts Vancomycin Trough COVID-19 (ELLEN) COVID-19 Clin Com Hepatitis A IgM Ab Hep Bs Antigen Hep Bs Antibody Hep B Core Total Ab Hepatitis C Ab (EIA) Blood Type Antibody Screen 12/30/21 12/30/21 12/30/21 10:58 16:21 19:28 WBC RBC Hgb Hct MCV MCH MCHC RDW Plt Count MPV Immature Gran % (Auto) Neut % (Auto) Lymph % (Auto) [place] % (Auto) Eos % (Auto) Baso % (Auto) Lymph # (Auto) [place] # (Auto) Eos # (Auto) Baso # (Auto) Abs Immat Gran (auto) Absolute Neuts (auto) Absolute Nucleated RBC Nucleated RBC % (auto) Neutrophils % (Manual) Band Neutrophils % Lymphocytes % (Manual) Monocytes % (Manual) Abs Neuts (Manual) Lymphocytes # (Manual) Monocytes # (Manual) Toxic Vacuolation Platelet Estimate Large Platelets Plt Morphology Comment RBC Morphology Ovalocytes [place] Cells Smear Tech's Comments PT INR APTT aPTT Heparin Protocol VBG pH VBG pCO2 VBG pO2 VBG HCO3 VBG O2 Saturation VBG Base Excess Sodium Potassium Chloride Carbon Dioxide Anion Gap BUN Creatinine Estim Creat Clear Calc Estimated GFR POC Glucose 173 H 127 H 212 H Random Glucose Lactic Acid Lactic Acid F/U @ 2Hr Calcium Magnesium Total Bilirubin Direct Bilirubin AST ALT Alkaline Phosphatase Ammonia Troponin I High Sens B-Natriuretic Peptide Total Protein Albumin Urine Color Urine Appearance Urine pH Ur Specific [place] Urine Protein Urine Glucose (UA) Urine Ketones Urine Blood Urine Nitrite Ur Leukocyte Esterase Urine RBC Urine WBC Ur Squamous Epith Cells Amorphous Sediment Urine Bacteria RBC Casts Vancomycin Trough COVID-19 (ELLEN) COVID-19 Clin Com Hepatitis A IgM Ab Hep Bs Antigen Hep Bs Antibody Hep B Core Total Ab Hepatitis C Ab (EIA) Blood Type Antibody Screen 12/31/21 12/31/21 12/31/21 06:04 07:28 08:03 WBC RBC Hgb Hct MCV MCH MCHC RDW Plt Count MPV Immature Gran % (Auto) Neut % (Auto) Lymph % (Auto) [place] % (Auto) Eos % (Auto) Baso % (Auto) Lymph # (Auto) [place] # (Auto) Eos # (Auto) Baso # (Auto) Abs Immat Gran (auto) Absolute Neuts (auto) Absolute Nucleated RBC Nucleated RBC % (auto) Neutrophils % (Manual) Band Neutrophils % Lymphocytes % (Manual) Monocytes % (Manual) Abs Neuts (Manual) Lymphocytes # (Manual) Monocytes # (Manual) Toxic Vacuolation Platelet Estimate Large Platelets Plt Morphology Comment RBC Morphology Ovalocytes [place] Cells Smear Tech's Comments PT INR APTT aPTT Heparin Protocol VBG pH VBG pCO2 VBG pO2 VBG HCO3 VBG O2 Saturation VBG Base Excess Sodium Potassium Chloride Carbon Dioxide Anion Gap BUN Creatinine 0.66 Estim Creat Clear Calc 81.8 Estimated GFR > 60 POC Glucose 190 H 181 H Random Glucose Lactic Acid Lactic Acid F/U @ 2Hr Calcium Magnesium Total Bilirubin Direct Bilirubin AST ALT Alkaline Phosphatase Ammonia Troponin I High Sens B-Natriuretic Peptide Total Protein Albumin Urine Color Urine Appearance Urine pH Ur Specific [place] Urine Protein Urine Glucose (UA) Urine Ketones Urine Blood Urine Nitrite Ur Leukocyte Esterase Urine RBC Urine WBC Ur Squamous Epith Cells Amorphous Sediment Urine Bacteria RBC Casts Vancomycin Trough COVID-19 (ELLEN) COVID-19 Clin Com Hepatitis A IgM Ab Hep Bs Antigen Hep Bs Antibody Hep B Core Total Ab Hepatitis C Ab (EIA) Blood Type Antibody Screen 12/31/21 12/31/21 12/31/21 09:00 09:00 09:00 WBC 8.8 RBC 3.11 L Hgb 9.4 L Hct 29.0 L MCV 93.2 MCH 30.2 MCHC 32.4 RDW 13.5 Plt Count 214 D MPV 11.7 Immature Gran % (Auto) 1.3 H Neut % (Auto) 75.7 H Lymph % (Auto) 15.8 L [place] % (Auto) 6.1 Eos % (Auto) 0.9 Baso % (Auto) 0.2 Lymph # (Auto) 1.4 [place] # (Auto) 0.5 Eos # (Auto) 0.1 Baso # (Auto) 0.0 Abs Immat Gran (auto) 0.11 H Absolute Neuts (auto) 6.7 Absolute Nucleated RBC 0.000 Nucleated RBC % (auto) 0.0 Neutrophils % (Manual) Band Neutrophils % Lymphocytes % (Manual) Monocytes % (Manual) Abs Neuts (Manual) Lymphocytes # (Manual) Monocytes # (Manual) Toxic Vacuolation Platelet Estimate Large Platelets Plt Morphology Comment RBC Morphology Ovalocytes [place] Cells Smear Tech's Comments VERIFIED PT 17.8 H INR 1.5 H APTT aPTT Heparin Protocol VBG pH VBG pCO2 VBG pO2 VBG HCO3 VBG O2 Saturation VBG Base Excess Sodium 138 Potassium 2.8 L Chloride 101 Carbon Dioxide 28 Anion Gap 12 BUN 6 L Creatinine 0.71 Estim Creat Clear Calc 76.0 Estimated GFR > 60 POC Glucose Random Glucose 193 H Lactic Acid Lactic Acid F/U @ 2Hr Calcium 6.9 L Magnesium 1.1 L* Total Bilirubin Direct Bilirubin AST ALT Alkaline Phosphatase Ammonia Troponin I High Sens B-Natriuretic Peptide Total Protein Albumin Urine Color Urine Appearance Urine pH Ur Specific [place] Urine Protein Urine Glucose (UA) Urine Ketones Urine Blood Urine Nitrite Ur Leukocyte Esterase Urine RBC Urine WBC Ur Squamous Epith Cells Amorphous Sed[place] Urine Bacteria RBC Casts Vancomycin Trough COVID-19 (ELLEN) COVID-19 Clin Com Hepatitis A IgM Ab Hep Bs Antigen Hep Bs Antibody Hep B Core Total Ab Hepatitis C Ab (EIA) Blood Type Antibody Screen 12/31/21 12/31/21 12/31/21 12:48 15:54 20:19 WBC RBC Hgb Hct MCV MCH MCHC RDW Plt Count MPV Immature Gran % (Auto) Neut % (Auto) Lymph % (Auto) [place] % (Auto) Eos % (Auto) Baso % (Auto) Lymph # (Auto) [place] # (Auto) Eos # (Auto) Baso # (Auto) Abs Immat Gran (auto) Absolute Neuts (auto) Absolute Nucleated RBC Nucleated RBC % (auto) Neutrophils % (Manual) Band Neutrophils % Lymphocytes % (Manual) Monocytes % (Manual) Abs Neuts (Manual) Lymphocytes # (Manual) Monocytes # (Manual) Toxic Vacuolation Platelet Estimate Large Platelets Plt Morphology Comment RBC Morphology Ovalocytes [place] Cells Smear Tech's Comments PT INR APTT aPTT Heparin Protocol VBG pH VBG pCO2 VBG pO2 VBG HCO3 VBG O2 Saturation VBG Base Excess Sodium Potassium Chloride Carbon Dioxide Anion Gap BUN Creatinine Estim Creat Clear Calc Estimated GFR POC Glucose 121 H 131 H 171 H Random Glucose Lactic Acid Lactic Acid F/U @ 2Hr Calcium Magnesium Total Bilirubin Direct Bilirubin AST ALT Alkaline Phosphatase Ammonia Troponin I High Sens B-Natriuretic Peptide Total Protein Albumin Urine Color Urine Appearance Urine pH Ur Specific [place] Urine Protein Urine Glucose (UA) Urine Ketones Urine Blood Urine Nitrite Ur Leukocyte Esterase Urine RBC Urine WBC Ur Squamous Epith Cells Amorphous Sed[place] Urine Bacteria RBC Casts Vancomycin Trough COVID-19 (ELLEN) COVID-19 Clin Com Hepatitis A IgM Ab Hep Bs Antigen Hep Bs Antibody Hep B Core Total Ab Hepatitis C Ab (EIA) Blood Type Antibody Screen 01/01/22 01/01/22 01/01/22 06:24 06:24 07:11 WBC 7.1 RBC 2.95 L Hgb 9.0 L Hct 28.2 L MCV 95.6 MCH 30.5 MCHC 31.9 RDW 13.3 Plt Count 240 MPV 11.5 Immature Gran % (Auto) Neut % (Auto) Lymph % (Auto) [place] % (Auto) Eos % (Auto) Baso % (Auto) Lymph # (Auto) [place] # (Auto) Eos # (Auto) Baso # (Auto) Abs Immat Gran (auto) Absolute Neuts (auto) Absolute Nucleated RBC 0.000 Nucleated RBC % (auto) 0.0 Neutrophils % (Manual) Band Neutrophils % Lymphocytes % (Manual) Monocytes % (Manual) Abs Neuts (Manual) Lymphocytes # (Manual) Monocytes # (Manual) Toxic Vacuolation Platelet Estimate Large Platelets Plt Morphology Comment RBC Morphology Ovalocytes [place] Cells Smear Tech's Comments PT INR APTT aPTT Heparin Protocol VBG pH VBG pCO2 VBG pO2 VBG HCO3 VBG O2 Saturation VBG Base Excess Sodium 139 Potassium 3.0 L Chloride 100 Carbon Dioxide 31 H Anion Gap 11 L BUN 4 L Creatinine 0.63 Estim Creat Clear Calc 85.6 Estimated GFR > 60 POC Glucose 134 H Random Glucose 156 H Lactic Acid Lactic Acid F/U @ 2Hr Calcium 7.0 L Magnesium 1.4 L* Total Bilirubin 0.7 Direct Bilirubin 0.4 AST 13 D ALT 26 Alkaline Phosphatase 95 D Ammonia Troponin I High Sens B-Natriuretic Peptide Total Protein 5.8 L Albumin 2.6 L Urine Color Urine Appearance Urine pH Ur Specific [place] Urine Protein Urine Glucose (UA) Urine Ketones Urine Blood Urine Nitrite Ur Leukocyte Esterase Urine RBC Urine WBC Ur Squamous Epith Cells Amorphous Sed[place] Urine Bacteria RBC Casts Vancomycin Trough COVID-19 (ELLEN) COVID-19 Clin Com Hepatitis A IgM Ab Hep Bs Antigen Hep Bs Antibody Hep B Core Total Ab Hepatitis C Ab (EIA) Blood Type Antibody Screen 01/01/22 01/01/22 01/01/22 11:42 16:30 19:31 WBC RBC Hgb Hct MCV MCH MCHC RDW Plt Count MPV Immature Gran % (Auto) Neut % (Auto) Lymph % (Auto) [place] % (Auto) Eos % (Auto) Baso % (Auto) Lymph # (Auto) [place] # (Auto) Eos # (Auto) Baso # (Auto) Abs Immat Gran (auto) Absolute Neuts (auto) Absolute Nucleated RBC Nucleated RBC % (auto) Neutrophils % (Manual) Band Neutrophils % Lymphocytes % (Manual) Monocytes % (Manual) Abs Neuts (Manual) Lymphocytes # (Manual) Monocytes # (Manual) Toxic Vacuolation Platelet Estimate Large Platelets Plt Morphology Comment RBC Morphology Ovalocytes [place] Cells Smear Tech's Comments PT INR APTT aPTT Heparin Protocol VBG pH VBG pCO2 VBG pO2 VBG HCO3 VBG O2 Saturation VBG Base Excess Sodium Potassium Chloride Carbon Dioxide Anion Gap BUN Creatinine Estim Creat Clear Calc Estimated GFR POC Glucose 142 H 139 H 164 H Random Glucose Lactic Acid Lactic Acid F/U @ 2Hr Calcium Magnesium Total Bilirubin Direct Bilirubin AST ALT Alkaline Phosphatase Ammonia Troponin I High Sens B-Natriuretic Peptide Total Protein Albumin Urine Color Urine Appearance Urine pH Ur Specific [place] Urine Protein Urine Glucose (UA) Urine Ketones Urine Blood Urine Nitrite Ur Leukocyte Esterase Urine RBC Urine WBC Ur Squamous Epith Cells Amorphous Sed[place] Urine Bacteria RBC Casts Vancomycin Trough COVID-19 (ELLEN) COVID-19 Clin Com Hepatitis A IgM Ab Hep Bs Antigen Hep Bs Antibody Hep B Core Total Ab Hepatitis C Ab (EIA) Blood Type Antibody Screen 01/02/22 01/02/22 01/02/22 06:10 07:15 10:50 WBC RBC Hgb Hct MCV MCH MCHC RDW Plt Count MPV Immature Gran % (Auto) Neut % (Auto) Lymph % (Auto) [place] % (Auto) Eos % (Auto) Baso % (Auto) Lymph # (Auto) [place] # (Auto) Eos # (Auto) Baso # (Auto) Abs Immat Gran (auto) Absolute Neuts (auto) Absolute Nucleated RBC Nucleated RBC % (auto) Neutrophils % (Manual) Band Neutrophils % Lymphocytes % (Manual) Monocytes % (Manual) Abs Neuts (Manual) Lymphocytes # (Manual) Monocytes # (Manual) Toxic Vacuolation Platelet Estimate Large Platelets Plt Morphology Comment RBC Morphology Ovalocytes [place] Cells Smear Tech's Comments PT INR APTT aPTT Heparin Protocol VBG pH VBG pCO2 VBG pO2 VBG HCO3 VBG O2 Saturation VBG Base Excess Sodium 137 Potassium 3.5 Chloride 101 Carbon Dioxide 27 Anion Gap 13 BUN 6 L Creatinine 0.62 Estim Creat Clear Calc 87.0 Estimated GFR > 60 POC Glucose 117 H 183 H Random Glucose 124 H Lactic Acid Lactic Acid F/U @ 2Hr Calcium 7.3 L Magnesium 1.7 Total Bilirubin Direct Bilirubin AST ALT Alkaline Phosphatase Ammonia Troponin I High Sens B-Natriuretic Peptide Total Protein Albumin Urine Color Urine Appearance Urine pH Ur Specific [place] Urine Protein Urine Glucose (UA) Urine Ketones Urine Blood Urine Nitrite Ur Leukocyte Esterase Urine RBC Urine WBC Ur Squamous Epith Cells Amorphous Sed[place] Urine Bacteria RBC Casts Vancomycin Trough COVID-19 (ELLEN) COVID-19 Clin Com Hepatitis A IgM Ab Hep Bs Antigen Hep Bs Antibody Hep B Core Total Ab Hepatitis C Ab (EIA) Blood Type Antibody Screen 01/02/22 01/02/22 01/03/22 15:10 19:44 06:17 WBC RBC Hgb Hct MCV MCH MCHC RDW Plt Count MPV Immature Gran % (Auto) Neut % (Auto) Lymph % (Auto) [place] % (Auto) Eos % (Auto) Baso % (Auto) Lymph # (Auto) [place] # (Auto) Eos # (Auto) Baso # (Auto) Abs Immat Gran (auto) Absolute Neuts (auto) Absolute Nucleated RBC Nucleated RBC % (auto) Neutrophils % (Manual) Band Neutrophils % Lymphocytes % (Manual) Monocytes % (Manual) Abs Neuts (Manual) Lymphocytes # (Manual) Monocytes # (Manual) Toxic Vacuolation Platelet Estimate Large Platelets Plt Morphology Comment RBC Morphology Ovalocytes [place] Cells Smear Tech's Comments PT INR APTT aPTT Heparin Protocol VBG pH VBG pCO2 VBG pO2 VBG HCO3 VBG O2 Saturation VBG Base Excess Sodium 140 Potassium 3.6 Chloride 101 Carbon Dioxide 29 Anion Gap 14 BUN 5 L Creatinine 0.62 Estim Creat Clear Calc 87.0 Estimated GFR > 60 POC Glucose 109 117 H Random Glucose 116 H Lactic Acid Lactic Acid F/U @ 2Hr Calcium 7.8 L D Magnesium 1.6 Total Bilirubin Direct Bilirubin AST ALT Alkaline Phosphatase Ammonia Troponin I High Sens B-Natriuretic Peptide Total Protein Albumin Urine Color Urine Appearance Urine pH Ur Specific [place] Urine Protein Urine Glucose (UA) Urine Ketones Urine Blood Urine Nitrite Ur Leukocyte Esterase Urine RBC Urine WBC Ur Squamous Epith Cells Amorphous [place] Urine Bacteria RBC Casts Vancomycin Trough COVID-19 (ELLEN) COVID-19 Clin Com Hepatitis A IgM Ab Hep Bs Antigen Hep Bs Antibody Hep B Core Total Ab Hepatitis C Ab (EIA) Blood Type Antibody Screen 01/03/22 01/03/22 01/03/22 07:40 11:21 16:40 WBC RBC Hgb Hct MCV MCH MCHC RDW Plt Count MPV Immature Gran % (Auto) Neut % (Auto) Lymph % (Auto) [place] % (Auto) Eos % (Auto) Baso % (Auto) Lymph # (Auto) [place] # (Auto) Eos # (Auto) Baso # (Auto) Abs Immat Gran (auto) Absolute Neuts (auto) Absolute Nucleated RBC Nucleated RBC % (auto) Neutrophils % (Manual) Band Neutrophils % Lymphocytes % (Manual) Monocytes % (Manual) Abs Neuts (Manual) Lymphocytes # (Manual) Monocytes # (Manual) Toxic Vacuolation Platelet Estimate Large Platelets Plt Morphology Comment RBC Morphology Ovalocytes [place] Cells Smear Tech's Comments PT INR APTT aPTT Heparin Protocol VBG pH VBG pCO2 VBG pO2 VBG HCO3 VBG O2 Saturation VBG Base Excess Sodium Potassium Chloride Carbon Dioxide Anion Gap BUN Creatinine Estim Creat Clear Calc Estimated GFR POC Glucose 102 131 H 120 H Random Glucose Lactic Acid Lactic Acid F/U @ 2Hr Calcium Magnesium Total Bilirubin Direct Bilirubin AST ALT Alkaline Phosphatase Ammonia Troponin I High Sens B-Natriuretic Peptide Total Protein Albumin Urine Color Urine Appearance Urine pH Ur Specific [place] Urine Protein Urine Glucose (UA) Urine Ketones Urine Blood Urine Nitrite Ur Leukocyte Esterase Urine RBC Urine WBC Ur Squamous Epith Cells Amorphous Sediment Urine Bacteria RBC Casts Vancomycin Trough COVID-19 (ELLEN) COVID-19 Clin Com Hepatitis A IgM Ab Hep Bs Antigen Hep Bs Antibody Hep B Core Total Ab Hepatitis C Ab (EIA) Blood Type Antibody Screen 01/03/22 01/04/22 01/04/22 19:38 06:49 06:49 WBC 5.5 RBC 3.23 L Hgb 10.0 L Hct 30.8 L MCV 95.4 MCH 31.0 MCHC 32.5 RDW 13.5 Plt Count 282 MPV 10.3 Immature Gran % (Auto) Neut % (Auto) Lymph % (Auto) [place] % (Auto) Eos % (Auto) Baso % (Auto) Lymph # (Auto) [place] # (Auto) Eos # (Auto) Baso # (Auto) Abs Immat Gran (auto) Absolute Neuts (auto) Absolute Nucleated RBC 0.000 Nucleated RBC % (auto) 0.0 Neutrophils % (Manual) Band Neutrophils % Lymphocytes % (Manual) Monocytes % (Manual) Abs Neuts (Manual) Lymphocytes # (Manual) Monocytes # (Manual) Toxic Vacuolation Platelet Estimate Large Platelets Plt Morphology Comment RBC Morphology Ovalocytes [place] Cells Smear Tech's Comments PT INR APTT aPTT Heparin Protocol VBG pH VBG pCO2 VBG pO2 VBG HCO3 VBG O2 Saturation VBG Base Excess Sodium 139 Potassium 3.5 Chloride 100 Carbon Dioxide 33 H Anion Gap 10 L BUN 6 L Creatinine 0.59 Estim Creat Clear Calc 91.5 Estimated GFR > 60 POC Glucose 127 H Random Glucose 116 H Lactic Acid Lactic Acid F/U @ 2Hr Calcium 7.9 L Magnesium 1.5 L Total Bilirubin Direct Bilirubin AST ALT Alkaline Phosphatase Ammonia Troponin I High Sens B-Natriuretic Peptide Total Protein Albumin Urine Color Urine Appearance Urine pH Ur Specific [place] Urine Protein Urine Glucose (UA) Urine Ketones Urine Blood Urine Nitrite Ur Leukocyte Esterase Urine RBC Urine WBC Ur Squamous Epith Cells Amorphous Sediment Urine Bacteria RBC Casts Vancomycin Trough COVID-19 (ELLEN) COVID-19 Clin Com Hepatitis A IgM Ab Hep Bs Antigen Hep Bs Antibody Hep B Core Total Ab Hepatitis C Ab (EIA) Blood Type Antibody Screen 01/04/22 01/04/22 01/04/22 07:01 11:33 17:29 WBC RBC Hgb Hct MCV MCH MCHC RDW Plt Count MPV Immature Gran % (Auto) Neut % (Auto) Lymph % (Auto) [place] % (Auto) Eos % (Auto) Baso % (Auto) Lymph # (Auto) [place] # (Auto) Eos # (Auto) Baso # (Auto) Abs Immat Gran (auto) Absolute Neuts (auto) Absolute Nucleated RBC Nucleated RBC % (auto) Neutrophils % (Manual) Band Neutrophils % Lymphocytes % (Manual) Monocytes % (Manual) Abs Neuts (Manual) Lymphocytes # (Manual) Monocytes # (Manual) Toxic Vacuolation Platelet Estimate Large Platelets Plt Morphology Comment RBC Morphology Ovalocytes [place] Cells Smear Tech's Comments PT INR APTT aPTT Heparin Protocol VBG pH VBG pCO2 VBG pO2 VBG HCO3 VBG O2 Saturation VBG Base Excess Sodium Potassium Chloride Carbon Dioxide Anion Gap BUN Creatinine Estim Creat Clear Calc Estimated GFR POC Glucose 109 149 H 142 H Random Glucose Lactic Acid Lactic Acid F/U @ 2Hr Calcium Magnesium Total Bilirubin Direct Bilirubin AST ALT Alkaline Phosphatase Ammonia Troponin I High Sens B-Natriuretic Peptide Total Protein Albumin Urine Color Urine Appearance Urine pH Ur Specific [place] Urine Protein Urine Glucose (UA) Urine Ketones Urine Blood Urine Nitrite Ur Leukocyte Esterase Urine RBC Urine WBC Ur Squamous Epith Cells Amorphous Sediment Urine Bacteria RBC Casts Vancomycin Trough COVID-19 (ELLEN) COVID-19 Clin Com Hepatitis A IgM Ab Hep Bs Antigen Hep Bs Antibody Hep B Core Total Ab Hepatitis C Ab (EIA) Blood Type Antibody Screen 01/04/22 01/05/22 01/05/22 21:05 07:25 10:52 WBC RBC Hgb Hct MCV MCH MCHC RDW Plt Count MPV Immature Gran % (Auto) Neut % (Auto) Lymph % (Auto) [place] % (Auto) Eos % (Auto) Baso % (Auto) Lymph # (Auto) [place] # (Auto) Eos # (Auto) Baso # (Auto) Abs Immat Gran (auto) Absolute Neuts (auto) Absolute Nucleated RBC Nucleated RBC % (auto) Neutrophils % (Manual) Band Neutrophils % Lymphocytes % (Manual) Monocytes % (Manual) Abs Neuts (Manual) Lymphocytes # (Manual) Monocytes # (Manual) Toxic Vacuolation Platelet Estimate Large Platelets Plt Morphology Comment RBC Morphology Ovalocytes [place] Cells Smear Tech's Comments PT INR APTT aPTT Heparin Protocol VBG pH VBG pCO2 VBG pO2 VBG HCO3 VBG O2 Saturation VBG Base Excess Sodium Potassium Chloride Carbon Dioxide Anion Gap BUN Creatinine Estim Creat Clear Calc Estimated GFR POC Glucose 189 H 137 H 114 Random Glucose Lactic Acid Lactic Acid F/U @ 2Hr Calcium Magnesium Total Bilirubin Direct Bilirubin AST ALT Alkaline Phosphatase Ammonia Troponin I High Sens B-Natriuretic Peptide Total Protein Albumin Urine Color Urine Appearance Urine pH Ur Specific [place] Urine Protein Urine Glucose (UA) Urine Ketones Urine Blood Urine Nitrite Ur Leukocyte Esterase Urine RBC Urine WBC Ur Squamous Epith Cells Amorphous Sediment Urine Bacteria RBC Casts Vancomycin Trough COVID-19 (ELLEN) COVID-19 Clin Com Hepatitis A IgM Ab Hep Bs Antigen Hep Bs Antibody Hep B Core Total Ab Hepatitis C Ab (EIA) Blood Type Antibody Screen 01/05/22 01/05/22 01/05/22 15:04 15:06 15:58 WBC RBC Hgb Hct MCV MCH MCHC RDW Plt Count MPV Immature Gran % (Auto) Neut % (Auto) Lymph % (Auto) [place] % (Auto) Eos % (Auto) Baso % (Auto) Lymph # (Auto) [place] # (Auto) Eos # (Auto) Baso # (Auto) Abs Immat Gran (auto) Absolute Neuts (auto) Absolute Nucleated RBC Nucleated RBC % (auto) Neutrophils % (Manual) Band Neutrophils % Lymphocytes % (Manual) Monocytes % (Manual) Abs Neuts (Manual) Lymphocytes # (Manual) Monocytes # (Manual) Toxic Vacuolation Platelet Estimate Large Platelets Plt Morphology Comment RBC Morphology Ovalocytes Lisette Cells Smear Tech's Comments PT 27.4 H INR 2.3 H APTT aPTT Heparin Protocol 50.3 L VBG pH VBG pCO2 VBG pO2 VBG HCO3 VBG O2 Saturation VBG Base Excess Sodium Potassium Chloride Carbon Dioxide Anion Gap BUN Creatinine Estim Creat Clear Calc Estimated GFR POC Glucose 129 H Random Glucose Lactic Acid Lactic Acid F/U @ 2Hr Calcium Magnesium Total Bilirubin Direct Bilirubin AST ALT Alkaline Phosphatase Ammonia Troponin I High Sens B-Natriuretic Peptide Total Protein Albumin Urine Color Urine Appearance Urine pH Ur Specific [place] Urine Protein Urine Glucose (UA) Urine Ketones Urine Blood Urine Nitrite Ur Leukocyte Esterase Urine RBC Urine WBC Ur Squamous Epith Cells Amorphous Sediment Urine Bacteria RBC Casts Vancomycin Trough COVID-19 (ELLEN) COVID-19 Clin Com Hepatitis A IgM Ab Hep Bs Antigen Hep Bs Antibody Hep B Core Total Ab Hepatitis C Ab (EIA) Blood Type A Positive Antibody Screen NEGATIVE 01/05/22 01/06/22 01/06/22 19:02 08:14 08:14 WBC RBC Hgb Hct MCV MCH MCHC RDW Plt Count MPV Immature Gran % (Auto) Neut % (Auto) Lymph % (Auto) [place] % (Auto) Eos % (Auto) Baso % (Auto) Lymph # (Auto) [place] # (Auto) Eos # (Auto) Baso # (Auto) Abs Immat Gran (auto) Absolute Neuts (auto) Absolute Nucleated RBC Nucleated RBC % (auto) Neutrophils % (Manual) Band Neutrophils % Lymphocytes % (Manual) Monocytes % (Manual) Abs Neuts (Manual) Lymphocytes # (Manual) Monocytes # (Manual) Toxic Vacuolation Platelet Estimate Large Platelets Plt Morphology Comment RBC Morphology Ovalocytes Lisette Cells Smear Tech's Comments PT 16.4 H INR 1.4 H APTT 37.9 Cancelled aPTT Heparin Protocol VBG pH VBG pCO2 VBG pO2 VBG HCO3 VBG O2 Saturation VBG Base Excess Sodium Potassium Chloride Carbon Dioxide Anion Gap BUN Creatinine Estim Creat Clear Calc Estimated GFR POC Glucose 150 H Random Glucose Lactic Acid Lactic Acid F/U @ 2Hr Calcium Magnesium Total Bilirubin Direct Bilirubin AST ALT Alkaline Phosphatase Ammonia Troponin I High Sens B-Natriuretic Peptide Total Protein Albumin Urine Color Urine Appearance Urine pH Ur Specific [place] Urine Protein Urine Glucose (UA) Urine Ketones Urine Blood Urine Nitrite Ur Leukocyte Esterase Urine RBC Urine WBC Ur Squamous Epith Cells Amorphous Sediment Urine Bacteria RBC Casts Vancomycin Trough COVID-19 (ELLEN) COVID-19 Clin Com Hepatitis A IgM Ab Hep Bs Antigen Hep Bs Antibody Hep B Core Total Ab Hepatitis C Ab (EIA) Blood Type Antibody Screen 01/06/22 01/06/22 01/06/22 08:57 11:20 16:49 WBC RBC Hgb Hct MCV MCH MCHC RDW Plt Count MPV Immature Gran % (Auto) Neut % (Auto) Lymph % (Auto) [place] % (Auto) Eos % (Auto) Baso % (Auto) Lymph # (Auto) [place] # (Auto) Eos # (Auto) Baso # (Auto) Abs Immat Gran (auto) Absolute Neuts (auto) Absolute Nucleated RBC Nucleated RBC % (auto) Neutrophils % (Manual) Band Neutrophils % Lymphocytes % (Manual) Monocytes % (Manual) Abs Neuts (Manual) Lymphocytes # (Manual) Monocytes # (Manual) Toxic Vacuolation Platelet Estimate Large Platelets Plt Morphology Comment RBC Morphology Ovalocytes Lisette Cells Smear Tech's Comments PT INR APTT aPTT Heparin Protocol VBG pH VBG pCO2 VBG pO2 VBG HCO3 VBG O2 Saturation VBG Base Excess Sodium Potassium Chloride Carbon Dioxide Anion Gap BUN Creatinine Estim Creat Clear Calc Estimated GFR POC Glucose 134 H 128 H 112 Random Glucose Lactic Acid Lactic Acid F/U @ 2Hr Calcium Magnesium Total Bilirubin Direct Bilirubin AST ALT Alkaline Phosphatase Ammonia Troponin I High Sens B-Natriuretic Peptide Total Protein Albumin Urine Color Urine Appearance Urine pH Ur Specific [place] Urine Protein Urine Glucose (UA) Urine Ketones Urine Blood Urine Nitrite Ur Leukocyte Esterase Urine RBC Urine WBC Ur Squamous Epith Cells Amorphous Sediment Urine Bacteria RBC Casts Vancomycin Trough COVID-19 (ELLEN) COVID-19 Clin Com Hepatitis A IgM Ab Hep Bs Antigen Hep Bs Antibody Hep B Core Total Ab Hepatitis C Ab (EIA) Blood Type Antibody Screen 01/06/22 01/07/22 01/07/22 21:09 06:38 06:38 WBC RBC Hgb Hct MCV MCH MCHC RDW Plt Count MPV Immature Gran % (Auto) Neut % (Auto) Lymph % (Auto) [place] % (Auto) Eos % (Auto) Baso % (Auto) Lymph # (Auto) [place] # (Auto) Eos # (Auto) Baso # (Auto) Abs Immat Gran (auto) Absolute Neuts (auto) Absolute Nucleated RBC Nucleated RBC % (auto) Neutrophils % (Manual) Band Neutrophils % Lymphocytes % (Manual) Monocytes % (Manual) Abs Neuts (Manual) Lymphocytes # (Manual) Monocytes # (Manual) Toxic Vacuolation Platelet Estimate Large Platelets Plt Morphology Comment RBC Morphology Ovalocytes Lisette Cells Smear Tech's Comments PT 15.6 H INR 1.3 H APTT aPTT Heparin Protocol VBG pH VBG pCO2 VBG pO2 VBG HCO3 VBG O2 Saturation VBG Base Excess Sodium 139 Potassium 3.2 L Chloride 97 Carbon Dioxide 33 H Anion Gap 12 BUN 8 L Creatinine 0.58 Estim Creat Clear Calc 93.0 Estimated GFR > 60 POC Glucose 122 H Random Glucose 129 H Lactic Acid Lactic Acid F/U @ 2Hr Calcium 7.7 L Magnesium 1.5 L Total Bilirubin 0.6 Direct Bilirubin 0.3 AST 16 ALT 12 Alkaline Phosphatase 73 D Ammonia Troponin I High Sens B-Natriuretic Peptide Total Protein 5.9 L Albumin 2.6 L Urine Color Urine Appearance Urine pH Ur Specific [place] Urine Protein Urine Glucose (UA) Urine Ketones Urine Blood Urine Nitrite Ur Leukocyte Esterase Urine RBC Urine WBC Ur Squamous Epith Cells Amorphous Sediment Urine Bacteria RBC Casts Vancomycin Trough COVID-19 (ELLEN) COVID-19 Clin Com Hepatitis A IgM Ab Hep Bs Antigen Hep Bs Antibody Hep B Core Total Ab Hepatitis C Ab (EIA) Blood Type Antibody Screen 01/07/22 07:05 WBC RBC Hgb Hct MCV MCH MCHC RDW Plt Count MPV Immature Gran % (Auto) Neut % (Auto) Lymph % (Auto) [place] % (Auto) Eos % (Auto) Baso % (Auto) Lymph # (Auto) [place] # (Auto) Eos # (Auto) Baso # (Auto) Abs Immat Gran (auto) Absolute Neuts (auto) Absolute Nucleated RBC Nucleated RBC % (auto) Neutrophils % (Manual) Band Neutrophils % Lymphocytes % (Manual) Monocytes % (Manual) Abs Neuts (Manual) Lymphocytes # (Manual) Monocytes # (Manual) Toxic Vacuolation Platelet Estimate Large Platelets Plt Morphology Comment RBC Morphology Ovalocytes Lisette Cells Smear Tech's Comments PT INR APTT aPTT Heparin Protocol VBG pH VBG pCO2 VBG pO2 VBG HCO3 VBG O2 Saturation VBG Base Excess Sodium Potassium Chloride Carbon Dioxide Anion Gap BUN Creatinine Estim Creat Clear Calc Estimated GFR POC Glucose 118 H Random Glucose Lactic Acid Lactic Acid F/U @ 2Hr Calcium Magnesium Total Bilirubin Direct Bilirubin AST ALT Alkaline Phosphatase Ammonia Troponin I High Sens B-Natriuretic Peptide Total Protein Albumin Urine Color Urine Appearance Urine pH Ur Specific [place] Urine Protein Urine Glucose (UA) Urine Ketones Urine Blood Urine Nitrite Ur Leukocyte Esterase Urine RBC Urine WBC Ur Squamous Epith Cells Amorphous Sediment Urine Bacteria RBC Casts Vancomycin Trough COVID-19 (ELLEN) COVID-19 Clin Com Hepatitis A IgM Ab Hep Bs Antigen Hep Bs Antibody Hep B Core Total Ab Hepatitis C Ab (EIA) Blood Type Antibody Screen Assessment and Plan Final Anesthetic Review Family History of Problems with Anesthesia: No
[2022-01-07] MEDS: KCl 20 mEq in 5 % Dex/Lact Rin 20 MEQ/1,000 ML IV.SOLN 80 MEQ IVCONT (11:26)
[2022-01-07 11:33] LABS: Glucose, Whole Blood 116 mg/dL (60-115)
--- NOTE | 2022-01-07 12:11 | MHC.SHP ---
Pre-Procedural Eval Section A Date of Service: 01/07/22 The patient is an INPATIENT: Yes The History & Physical has been completed within 30 days and I have reviewed it.: Yes Section B Chief Complaint: Sepsis, CBD DRAIN PLACEMENT Allergies: Allergies Allergy/AdvReac Type Severity Reaction Status Date / Time Iodinated Contrast Media Allergy Severe THROAT Verified 12/29/21 09:41 [IV Dye, Iodine Containing CLOSES Contrast ] UP/SWELLIN iodine [IODINE] Allergy Severe ANAPHYLAXIS Verified 12/29/21 09:41 sulfamethoxazole Allergy Intermediate rash face Verified 10/17/21 10:17 [From Bactrim] trimethoprim [From Bactrim] Allergy Intermediate rash face Verified 10/17/21 10:17 quetiapine [From SEROQUEL] Allergy Unknown SWELLING Verified 10/17/21 10:17 apixaban [From Eliquis] AdvReac Intermediate Diarrhea Verified 10/17/21 10:17 amoxicillin [Augmentin] AdvReac Unknown Diarrhea Verified 12/29/21 09:45 clavulanic acid [Augmentin] AdvReac Unknown Diarrhea Verified 12/29/21 09:45 lisinopril [LISINOPRIL] AdvReac Unknown Cough Verified 12/29/21 09:45 prednisone [PREDNISONE] AdvReac Unknown INCREASE Verified 12/29/21 09:41 BLOOD PRESSURE Plan Diagnosis/Plan: Unchanged I have reviewed the history and physical and performed a pertinent physical examination on my patient. No changes have occurred unless specified.
--- NOTE | 2022-01-07 12:24 | HO.ANESPROP2 ---
[facility] Active Problems Active Problems: All Active Problems (Updated 12/30/21 @ 13:54 by Uma San MD) Acute cholecystitis due to biliary calculus (Acute) Persistent atrial fibrillation (Acute) Bacteremia due to Gram-negative bacteria (Acute) Cholelithiasis (Acute) Fever (Acute) Hypoxia (Acute) Leukocytosis (Acute) Elevated liver enzymes (Acute) Acidosis, lactic (Acute) Aspiration pneumonia (Acute) Afib (Acute) ANABELL (acute kidney injury) (Acute) Acute dehydration (Acute) Osteoarthritis of knees, bilateral (Acute) Allergic rhinitis (Acute) Hypercholesterolemia (Acute) Acute UTI (Acute) Pressure ulcer of coccygeal region (Acute) Skin infection (Acute) Lumbar degenerative disc disease (Acute) Derangement of left knee (Acute) DMII (diabetes mellitus, type 2) (Acute) KRISHAN (generalized anxiety disorder) (Acute) Osteoarthritis, knee (Acute) Insomnia (Acute) Neuropathy (Acute) Chronic cystitis (Acute) Past Medical History Medical History Afib Bacteremia due to Gram-negative bacteria DVT, bilateral lower limbs Hypercholesterolemia Lumbar degenerative disc disease Recurrent UTI Type 2 diabetes mellitus with hyperglycemia Functional capacity: bed bound Patient : No Family History Family History Father Diabetes Heart disease Mother Heart disease Son Opiate addiction Family history of problems with anesthesia: No Surgical History Surgical History History of lumpectomy of right breast History of tubal ligation History of Problems with Anesthesia: No Social History Social History Household Members: None Household Members Other:: Brought to ER by son with whom she lives Housing: Correction Do you presently have visiting nurse or other home services: No Unable to assess alcohol history related to: Unknown Alcohol intake: unknown Patient Tobacco Use Status: Never used Tobacco e-Cigarette/Vaping Use: Never Used Second Hand Smoke Exposure: No Advance Directives Date on File: 01/09/21 service: No Current occupational status: retired Cognitive needs: Yes (Electric Wheel Chair) Hearing needs: Yes (Earring Aids) Vision needs: Yes (Glasses) Meds Allergies Allergy/AdvReac Type Severity Reaction Status Date / Time Iodinated Contrast Media Allergy Severe THROAT Verified 12/29/21 09:41 [IV Dye, Iodine Containing CLOSES Contrast ] UP/SWELLIN iodine [IODINE] Allergy Severe ANAPHYLAXIS Verified 12/29/21 09:41 sulfamethoxazole Allergy Intermediate rash face Verified 10/17/21 10:17 [From Bactrim] trimethoprim [From Bactrim] Allergy Intermediate rash face Verified 10/17/21 10:17 quetiapine [From SEROQUEL] Allergy Unknown SWELLING Verified 10/17/21 10:17 apixaban [From Eliquis] AdvReac Intermediate Diarrhea Verified 10/17/21 10:17 amoxicillin [Augmentin] AdvReac Unknown Diarrhea Verified 12/29/21 09:45 clavulanic acid [Augmentin] AdvReac Unknown Diarrhea Verified 12/29/21 09:45 lisinopril [LISINOPRIL] AdvReac Unknown Cough Verified 12/29/21 09:45 prednisone [PREDNISONE] AdvReac Unknown INCREASE Verified 12/29/21 09:41 BLOOD PRESSURE Active Medications: Current Medications Acetaminophen (Acetaminophen 325 Mg Tablet) 650 mg PO Q6H PRN PRN Reason: Pain, Mild (Pain Scale 1-3) Acetaminophen (Acetaminophen Supp 650 Mg Supp.Rect) 650 mg RI Q6H PRN PRN Reason: Fever Last Admin: 12/25/21 20:42 Dose: 650 mg Albuterol Sulfate (Albuterol Sulfate 90 Mcg 8 Gm Inhaler) 2 puff INHALE Q6H PRN PRN Reason: Shortness Of Breath Or Wheezing Atorvastatin Calcium (Atorvastatin Calcium 10 Mg Tablet) 10 mg PO BEDTIME [facility] Last Admin: 01/06/22 21:48 Dose: 10 mg Bisacodyl (Bisacodyl 10 Mg Supp.Rect) 10 mg RI DAILY PRN PRN Reason: Constipation Dextrose (Dextrose 50 % 25 Gm/50 Ml Syringe) 25 gm IVPUSH Q15M PRN; Protocol PRN Reason: per Hypoglycemia Standing Ord. Escitalopram Oxalate (Escitalopram Oxalate 10 Mg Tablet) 10 mg PO DAILY [facility] Last Admin: 01/07/22 08:07 Dose: Not Given Fentanyl (Fentanyl Citrate/Pf 100 Mcg/2 Ml Vial) 25 mcg IVPUSH Q5M PRN; Protocol PRN Reason: Pain, Moderate (Pain Scale 4-6 Furosemide (Furosemide 20 Mg Tablet) 20 mg PO DAILY [facility]; Protocol Last Admin: 01/07/22 08:07 Dose: Not Given Glucose (Glucose Gel 15 Gm Gel..Gram.) 15 gm PO Q15M PRN; Protocol PRN Reason: per Hypoglycemia Standing Ord. Meropenem 1 gm/ Sodium (Chloride) 100 mls @ 200 mls/hr IV Q8H [facility] Last Infusion: 01/07/22 09:16 Dose: Infused Potassium Cl/Dextrose/Lact Ringer's () 20 meq in 1,000 mls @ 80 mls/hr IVCONT .[id number] [facility] Last Admin: 01/07/22 11:26 Dose: 80 mls/hr Insulin Human Lispro (Insulin Lispro 100 Unit/Ml 3 Ml Vial) 0 unit SUBCUT QIDACHS [facility]; Protocol Last Admin: 01/07/22 11:27 Dose: Not Given Melatonin (Melatonin 3 Mg Tablet) 6 mg PO BEDTIME PRN PRN Reason: Insomnia Metoprolol Tartrate (Metoprolol Tartrate 100 Mg Tablet) 100 mg PO BID [facility]; Protocol Last Admin: 01/07/22 08:07 Dose: Not Given Mirtazapine (Mirtazapine 7.5 Mg Tablet) 7.5 mg PO BEDTIME [facility] Last Admin: 01/06/22 21:48 Dose: 7.5 mg Multivitamins/Vitamin C (Multivitamin Tablet) 1 tab PO DAILY [facility] Last Admin: 01/07/22 08:07 Dose: Not Given Nystatin (Nystatin Cream 15 Gm Tube) 1 appl TOPICAL BID [facility]; Protocol Last Admin: 01/07/22 10:24 Dose: 1 appl Ondansetron HCl (Ondansetron Hcl 4 Mg/2 Ml Vial) 4 mg IVPUSH ONCE PRN PRN Reason: Nausea and Vomiting Oxycodone HCl (Oxycodone Hcl Immed Release 5 Mg Tablet) 5 mg PO ONCE PRN PRN Reason: Pain, Severe (Pain Scale 7-10) Pharmacy Consult (Consult Rx Perform Med Rec) 1 each MISCELLANE ONCE PRN PRN Reason: Consult order Potassium Chloride (Potassium Chloride Packet 20 Meq Packet) 40 meq PO DAILY [facility] Last Admin: 01/07/22 08:08 Dose: Not Given Pregabalin (Pregabalin 100 Mg Capsule) 100 mg PO TID [facility] Last Admin: 01/07/22 09:17 Dose: Not Given Senna (Sennosides 8.6 Mg Tablet) 17.2 mg PO BEDTIME PRN PRN Reason: Constipation Senna (Sennosides 8.6 Mg Tablet) 17.2 mg PO DAILY PRN PRN Reason: Constipation Sodium Chloride (0.9 % Sodium Chloride Flush 3 Ml Syringe) 3 ml IVFLUSH QSHIFT [facility] Last Admin: 01/07/22 08:45 Dose: Not Given Trazodone HCl (Trazodone Hcl 50 Mg Tablet) 50 mg PO BEDTIME [facility] Last Admin: 01/06/22 21:47 Dose: 50 mg Home Medications Medication Instructions Recorded Confirmed Last Taken Type albuterol sulfate 90 mcg/actuation 2 puff inhalation Q6H PRN 06/18/20 12/25/21 10/17/21 History aerosol inhaler Shortness Of Breath Or Wheezing Lactobacil.acidophilus-Bifido.animalis 1 cap PO BID 10/17/21 12/25/21 12/24/21 History 5 billion cell sprinkle capsule (Probiotic) acetaminophen 325 mg tablet 650 mg PO Q4H PRN Fever Or Pain 10/17/21 12/25/21 12/24/21 History bisacodyl 10 mg rectal suppository 10 mg RI DAILY PRN Constipation 10/17/21 12/25/21 Unknown History loperamide 2 mg tablet 2 mg PO Q6H PRN Loose Stool 10/17/21 12/25/21 10/26/21 History metoprolol succinate 25 mg 25 mg PO DAILY 10/17/21 12/25/21 12/24/21 History tablet,extended release 24 hr multivitamin with minerals 1 tab PO DAILY 10/17/21 12/25/21 12/24/21 History sennosides 8.6 mg tablet (senna) 17.2 mg PO DAILY PRN Constipation 10/17/21 12/25/21 Unknown History trazodone 50 mg tablet 50 mg PO BEDTIME 10/17/21 12/25/21 12/24/21 History furosemide 20 mg tablet 1 tab PO DAILY 12/25/21 12/25/21 12/24/21 History insulin glargine 100 unit/mL (3 20 unit subcut DAILY 12/25/21 12/25/21 12/24/21 History mL) subcutaneous pen (Lantus Solostar U-100 Insulin) menthol 4 % topical gel (Biofreeze 1 appl topical BID 12/25/21 12/25/21 12/25/21 History (menthol)) mirtazapine 7.5 mg tablet 7.5 mg PO BEDTIME 12/25/21 12/25/21 12/24/21 History nystatin 100,000 unit/gram topical 1 appl topical BID 12/25/21 12/25/21 12/25/21 History cream potassium chloride 10 mEq 1 cap PO DAILY 12/25/21 12/25/21 12/22/21 History capsule,extended release potassium chloride 20 mEq 1 tab PO BID 12/25/21 12/25/21 12/25/21 History tablet,extended release(part/cryst) rivaroxaban 20 mg tablet (Xarelto) 1 tab PO DAILY 12/25/21 12/25/21 12/24/21 History Exam Exam Date and Time: January 07, 2022 122 Height,Weight and Vital Signs: Height 5 ft 8 in Weight 80 kg Last Vital Signs Temp 97.3 F 01/07/22 08:00 Pulse 89 01/07/22 08:00 Resp 16 01/07/22 08:00 BP 130/84 01/07/22 08:00 Pulse Ox 94 01/07/22 08:19 O2 Del Method 01/07/22 08:19 O2 Flow Rate 1 01/01/22 07:44 Oxygen Flow Rate 4 12/25/21 13:05 Pertinent Lab Results Pertinent Lab Results: Laboratory Tests 12/25/21 12/25/21 12/25/21 13:55 13:55 13:55 WBC 16.8 H RBC 3.53 L Hgb 11.0 L Hct 33.7 L MCV 95.5 MCH 31.2 MCHC 32.6 RDW 14.6 Plt Count 168 D MPV 11.1 Immature Gran % (Auto) Cancelled Neut % (Auto) Cancelled Lymph % (Auto) Cancelled [place] % (Auto) Cancelled Eos % (Auto) Cancelled Baso % (Auto) Cancelled Lymph # (Auto) Cancelled [place] # (Auto) Cancelled Eos # (Auto) Cancelled Baso # (Auto) Cancelled Abs Immat Gran (auto) Cancelled Absolute Neuts (auto) Cancelled Absolute Nucleated RBC 0.000 Nucleated RBC % (auto) 0.0 Neutrophils % (Manual) 79 H Band Neutrophils % 17 H Lymphocytes % (Manual) 3 L Monocytes % (Manual) 1 L Abs Neuts (Manual) 16.1 H Lymphocytes # (Manual) 0.5 L Monocytes # (Manual) 0.2 Toxic Vacuolation PRESENT Platelet Estimate NORMAL Large Platelets Plt Morphology Comment NORMAL RBC Morphology NOTED Ovalocytes 1+ (5-14) Lisette Cells 2+ (3-5) Smear Tech's Comments PT INR APTT aPTT Heparin Protocol VBG pH VBG pCO2 VBG pO2 VBG HCO3 VBG O2 Saturation VBG Base Excess Sodium Potassium Chloride Carbon Dioxide Anion Gap BUN Creatinine Estim Creat Clear Calc Estimated GFR POC Glucose Random Glucose Lactic Acid Lactic Acid F/U @ 2Hr Calcium Magnesium Total Bilirubin Direct Bilirubin AST ALT Alkaline Phosphatase Ammonia 24 Troponin I High Sens B-Natriuretic Peptide 310 H Total Protein Albumin Urine Color Urine Appearance Urine pH Ur Specific [place] Urine Protein Urine Glucose (UA) Urine Ketones Urine Blood Urine Nitrite Ur Leukocyte Esterase Urine RBC Urine WBC Ur Squamous Epith Cells Amorphous Sediment Urine Bacteria RBC Casts Vancomycin Trough COVID-19 (ELLEN) COVID-19 Clin Com Hepatitis A IgM Ab Hep Bs Antigen Hep Bs Antibody Hep B Core Total Ab Hepatitis C Ab (EIA) Blood Type Antibody Screen 12/25/21 12/25/21 12/25/21 13:55 13:55 13:55 WBC RBC Hgb Hct MCV MCH MCHC RDW Plt Count MPV Immature Gran % (Auto) Neut % (Auto) Lymph % (Auto) [place] % (Auto) Eos % (Auto) Baso % (Auto) Lymph # (Auto) [place] # (Auto) Eos # (Auto) Baso # (Auto) Abs Immat Gran (auto) Absolute Neuts (auto) Absolute Nucleated RBC Nucleated RBC % (auto) Neutrophils % (Manual) Band Neutrophils % Lymphocytes % (Manual) Monocytes % (Manual) Abs Neuts (Manual) Lymphocytes # (Manual) Monocytes # (Manual) Toxic Vacuolation Platelet Estimate Large Platelets Plt Morphology Comment RBC Morphology Ovalocytes Lisette Cells Smear Tech's Comments PT 36.8 H INR 3.1 H APTT aPTT Heparin Protocol VBG pH VBG pCO2 VBG pO2 VBG HCO3 VBG O2 Saturation VBG Base Excess Sodium Potassium Chloride Carbon Dioxide Anion Gap BUN Creatinine Estim Creat Clear Calc Estimated GFR POC Glucose Random Glucose Lactic Acid 2.5 H* Lactic Acid F/U @ 2Hr Calcium Magnesium Total Bilirubin Direct Bilirubin AST ALT Alkaline Phosphatase Ammonia Troponin I High Sens 184.6 H* B-Natriuretic Peptide Total Protein Albumin Urine Color Urine Appearance Urine pH Ur Specific [place] Urine Protein Urine Glucose (UA) Urine Ketones Urine Blood Urine Nitrite Ur Leukocyte Esterase Urine RBC Urine WBC Ur Squamous Epith Cells Amorphous Sediment Urine Bacteria RBC Casts Vancomycin Trough COVID-19 (ELLEN) COVID-19 Clin Com Hepatitis A IgM Ab Hep Bs Antigen Hep Bs Antibody Hep B Core Total Ab Hepatitis C Ab (EIA) Blood Type Antibody Screen 12/25/21 12/25/21 12/25/21 13:55 14:03 14:35 WBC RBC Hgb Hct MCV MCH MCHC RDW Plt Count MPV Immature Gran % (Auto) Neut % (Auto) Lymph % (Auto) [place] % (Auto) Eos % (Auto) Baso % (Auto) Lymph # (Auto) [place] # (Auto) Eos # (Auto) Baso # (Auto) Abs Immat Gran (auto) Absolute Neuts (auto) Absolute Nucleated RBC Nucleated RBC % (auto) Neutrophils % (Manual) Band Neutrophils % Lymphocytes % (Manual) Monocytes % (Manual) Abs Neuts (Manual) Lymphocytes # (Manual) Monocytes # (Manual) Toxic Vacuolation Platelet Estimate Large Platelets Plt Morphology Comment RBC Morphology Ovalocytes [place] Cells Smear Tech's Comments PT INR APTT aPTT Heparin Protocol VBG pH 7.37 VBG pCO2 42 VBG pO2 58 VBG HCO3 24 VBG O2 Saturation 85.0 VBG Base Excess -0.4 Sodium Potassium Chloride Carbon Dioxide Anion Gap BUN Creatinine Estim Creat Clear Calc Estimated GFR POC Glucose Random Glucose Lactic Acid Lactic Acid F/U @ 2Hr Calcium Magnesium Total Bilirubin Direct Bilirubin AST ALT Alkaline Phosphatase Ammonia Troponin I High Sens B-Natriuretic Peptide Total Protein Albumin Urine Color ORANGE A Urine Appearance CLOUDY Urine pH 5.5 Ur Specific [place] 1.025 Urine Protein 2+ H Urine Glucose (UA) 250 H Urine Ketones 5 Urine Blood 3+ H Urine Nitrite SEE NOTE Ur Leukocyte Esterase SEE NOTE Urine RBC 0-2 Urine WBC 1-4 Ur Squamous Epith Cells 1+ Amorphous Sediment 3+ Urine Bacteria 4+ RBC Casts 5-9 Vancomycin Trough COVID-19 (ELLEN) Negative COVID-19 Clin Com See Note Hepatitis A IgM Ab Hep Bs Antigen Hep Bs Antibody Hep B Core Total Ab Hepatitis C Ab (EIA) Blood Type Antibody Screen 12/25/21 12/25/21 12/25/21 14:46 16:32 20:17 WBC RBC Hgb Hct MCV MCH MCHC RDW Plt Count MPV Immature Gran % (Auto) Neut % (Auto) Lymph % (Auto) [place] % (Auto) Eos % (Auto) Baso % (Auto) Lymph # (Auto) [place] # (Auto) Eos # (Auto) Baso # (Auto) Abs Immat Gran (auto) Absolute Neuts (auto) Absolute Nucleated RBC Nucleated RBC % (auto) Neutrophils % (Manual) Band Neutrophils % Lymphocytes % (Manual) Monocytes % (Manual) Abs Neuts (Manual) Lymphocytes # (Manual) Monocytes # (Manual) Toxic Vacuolation Platelet Estimate Large Platelets Plt Morphology Comment RBC Morphology Ovalocytes Lisette Cells Smear Tech's Comments PT INR APTT aPTT Heparin Protocol VBG pH VBG pCO2 VBG pO2 VBG HCO3 VBG O2 Saturation VBG Base Excess Sodium 143 Potassium 3.9 Chloride 107 Carbon Dioxide 25 Anion Gap 15 BUN 44 H D Creatinine 1.52 H Estim Creat Clear Calc 36.0 Estimated GFR 33 POC Glucose Random Glucose 167 H Lactic Acid Lactic Acid F/U @ 2Hr 1.6 Calcium 7.7 L D Magnesium 1.5 L Total Bilirubin 2.7 H Direct Bilirubin 2.1 H AST 127 H ALT 186 H Alkaline Phosphatase 210 H D Ammonia Troponin I High Sens B-Natriuretic Peptide Total Protein 6.4 L Albumin 3.1 L Urine Color Urine Appearance Urine pH Ur Specific [place] Urine Protein Urine Glucose (UA) Urine Ketones Urine Blood Urine Nitrite Ur Leukocyte Esterase Urine RBC Urine WBC Ur Squamous Epith Cells Amorphous Sediment Urine Bacteria RBC Casts Vancomycin Trough COVID-19 (ELLEN) COVID-19 Clin Com Hepatitis A IgM Ab Nonreactive Hep Bs Antigen Negative Hep Bs Antibody NONREACTIVE Hep B Core Total Ab Nonreactive Hepatitis C Ab (EIA) Nonreactive Blood Type Antibody Screen 12/25/21 12/26/21 12/26/21 21:22 06:49 06:53 WBC 9.3 RBC 3.14 L Hgb 9.7 L Hct 30.6 L MCV 97.5 MCH 30.9 MCHC 31.7 RDW 14.6 Plt Count 123 L D MPV 11.9 Immature Gran % (Auto) Cancelled Neut % (Auto) Cancelled Lymph % (Auto) Cancelled [place] % (Auto) Cancelled Eos % (Auto) Cancelled Baso % (Auto) Cancelled Lymph # (Auto) Cancelled [place] # (Auto) Cancelled Eos # (Auto) Cancelled Baso # (Auto) Cancelled Abs Immat Gran (auto) Cancelled Absolute Neuts (auto) Cancelled Absolute Nucleated RBC 0.000 Nucleated RBC % (auto) 0.0 Neutrophils % (Manual) 96 H Band Neutrophils % 0 L Lymphocytes % (Manual) 4 L Monocytes % (Manual) Abs Neuts (Manual) 8.9 H Lymphocytes # (Manual) 0.4 L Monocytes # (Manual) Toxic Vacuolation Platelet Estimate SLIGHTLY DECREASED Large Platelets PRESENT Plt Morphology Comment NOTED RBC Morphology NOTED Ovalocytes 1+ (5-14) Lisette Cells Smear Tech's Comments PT INR APTT aPTT Heparin Protocol VBG pH VBG pCO2 VBG pO2 VBG HCO3 VBG O2 Saturation VBG Base Excess Sodium Potassium Chloride Carbon Dioxide Anion Gap BUN Creatinine Estim Creat Clear Calc Estimated GFR POC Glucose 161 H 130 H Random Glucose Lactic Acid Lactic Acid F/U @ 2Hr Calcium Magnesium Total Bilirubin Direct Bilirubin AST ALT Alkaline Phosphatase Ammonia Troponin I High Sens B-Natriuretic Peptide Total Protein Albumin Urine Color Urine Appearance Urine pH Ur Specific [place] Urine Protein Urine Glucose (UA) Urine Ketones Urine Blood Urine Nitrite Ur Leukocyte Esterase Urine RBC Urine WBC Ur Squamous Epith Cells Amorphous Sediment Urine Bacteria RBC Casts Vancomycin Trough COVID-19 (ELLEN) COVID-19 Clin Com Hepatitis A IgM Ab Hep Bs Antigen Hep Bs Antibody Hep B Core Total Ab Hepatitis C Ab (EIA) Blood Type Antibody Screen 12/26/21 12/26/21 12/26/21 06:53 14:02 20:44 WBC RBC Hgb Hct MCV MCH MCHC RDW Plt Count MPV Immature Gran % (Auto) Neut % (Auto) Lymph % (Auto) [place] % (Auto) Eos % (Auto) Baso % (Auto) Lymph # (Auto) [place] # (Auto) Eos # (Auto) Baso # (Auto) Abs Immat Gran (auto) Absolute Neuts (auto) Absolute Nucleated RBC Nucleated RBC % (auto) Neutrophils % (Manual) Band Neutrophils % Lymphocytes % (Manual) Monocytes % (Manual) Abs Neuts (Manual) Lymphocytes # (Manual) Monocytes # (Manual) Toxic Vacuolation Platelet Estimate Large Platelets Plt Morphology Comment RBC Morphology Ovalocytes [place] Cells Smear Tech's Comments PT INR APTT aPTT Heparin Protocol VBG pH VBG pCO2 VBG pO2 VBG HCO3 VBG O2 Saturation VBG Base Excess Sodium 146 H Potassium 3.6 Chloride 113 H Carbon Dioxide 24 Anion Gap 13 BUN 37 H Creatinine 1.17 Estim Creat Clear Calc 46.8 Estimated GFR 45 POC Glucose 132 H 139 H Random Glucose 144 H Lactic Acid Lactic Acid F/U @ 2Hr Calcium 7.3 L Magnesium Total Bilirubin Direct Bilirubin AST ALT Alkaline Phosphatase Ammonia Troponin I High Sens B-Natriuretic Peptide Total Protein Albumin Urine Color Urine Appearance Urine pH Ur Specific [place] Urine Protein Urine Glucose (UA) Urine Ketones Urine Blood Urine Nitrite Ur Leukocyte Esterase Urine RBC Urine WBC Ur Squamous Epith Cells Amorphous Sediment Urine Bacteria RBC Casts Vancomycin Trough COVID-19 (ELLEN) COVID-19 Clin Com Hepatitis A IgM Ab Hep Bs Antigen Hep Bs Antibody Hep B Core Total Ab Hepatitis C Ab (EIA) Blood Type Antibody Screen 12/27/21 12/27/21 12/27/21 06:01 06:01 07:50 WBC RBC Hgb Hct MCV MCH MCHC RDW Plt Count MPV Immature Gran % (Auto) Neut % (Auto) Lymph % (Auto) [place] % (Auto) Eos % (Auto) Baso % (Auto) Lymph # (Auto) [place] # (Auto) Eos # (Auto) Baso # (Auto) Abs Immat Gran (auto) Absolute Neuts (auto) Absolute Nucleated RBC Nucleated RBC % (auto) Neutrophils % (Manual) Band Neutrophils % Lymphocytes % (Manual) Monocytes % (Manual) Abs Neuts (Manual) Lymphocytes # (Manual) Monocytes # (Manual) Toxic Vacuolation Platelet Estimate Large Platelets Plt Morphology Comment RBC Morphology Ovalocytes [place] Cells Smear Tech's Comments PT INR APTT aPTT Heparin Protocol VBG pH VBG pCO2 VBG pO2 VBG HCO3 VBG O2 Saturation VBG Base Excess Sodium 148 H Potassium 3.7 Chloride 114 H Carbon Dioxide 22 Anion Gap 16 BUN 28 H Creatinine 0.89 0.91 Estim Creat Clear Calc 60.6 59.2 Estimated GFR > 60 > 60 POC Glucose 149 H Random Glucose 181 H Lactic Acid Lactic Acid F/U @ 2Hr Calcium 7.8 L D Magnesium Total Bilirubin Direct Bilirubin AST ALT Alkaline Phosphatase Ammonia Troponin I High Sens B-Natriuretic Peptide Total Protein Albumin Urine Color Urine Appearance Urine pH Ur Specific [place] Urine Protein Urine Glucose (UA) Urine Ketones Urine Blood Urine Nitrite Ur Leukocyte Esterase Urine RBC Urine WBC Ur Squamous Epith Cells Amorphous Sediment Urine Bacteria RBC Casts Vancomycin Trough COVID-19 (ELLEN) COVID-19 Clin Com Hepatitis A IgM Ab Hep Bs Antigen Hep Bs Antibody Hep B Core Total Ab Hepatitis C Ab (EIA) Blood Type Antibody Screen 12/27/21 12/27/21 12/27/21 11:02 12:51 15:13 WBC RBC Hgb Hct MCV MCH MCHC RDW Plt Count MPV Immature Gran % (Auto) Neut % (Auto) Lymph % (Auto) [place] % (Auto) Eos % (Auto) Baso % (Auto) Lymph # (Auto) [place] # (Auto) Eos # (Auto) Baso # (Auto) Abs Immat Gran (auto) Absolute Neuts (auto) Absolute Nucleated RBC Nucleated RBC % (auto) Neutrophils % (Manual) Band Neutrophils % Lymphocytes % (Manual) Monocytes % (Manual) Abs Neuts (Manual) Lymphocytes # (Manual) Monocytes # (Manual) Toxic Vacuolation Platelet Estimate Large Platelets Plt Morphology Comment RBC Morphology Ovalocytes [place] Cells Smear Tech's Comments PT INR APTT aPTT Heparin Protocol VBG pH VBG pCO2 VBG pO2 VBG HCO3 VBG O2 Saturation VBG Base Excess Sodium 149 H Potassium 3.1 L Chloride 114 H Carbon Dioxide 22 Anion Gap 16 BUN 28 H Creatinine 0.95 Estim Creat Clear Calc 56.8 Estimated GFR 57 POC Glucose 196 H 165 H Random Glucose 216 H Lactic Acid Lactic Acid F/U @ 2Hr Calcium 7.7 L Magnesium Total Bilirubin Direct Bilirubin AST ALT Alkaline Phosphatase Ammonia Troponin I High Sens B-Natriuretic Peptide Total Protein Albumin Urine Color Urine Appearance Urine pH Ur Specific [place] Urine Protein Urine Glucose (UA) Urine Ketones Urine Blood Urine Nitrite Ur Leukocyte Esterase Urine RBC Urine WBC Ur Squamous Epith Cells Amorphous Sediment Urine Bacteria RBC Casts Vancomycin Trough COVID-19 (ELLEN) COVID-19 Clin Com Hepatitis A IgM Ab Hep Bs Antigen Hep Bs Antibody Hep B Core Total Ab Hepatitis C Ab (EIA) Blood Type Antibody Screen 12/27/21 12/27/21 12/27/21 18:57 18:57 19:15 WBC RBC Hgb Hct MCV MCH MCHC RDW Plt Count MPV Immature Gran % (Auto) Neut % (Auto) Lymph % (Auto) [place] % (Auto) Eos % (Auto) Baso % (Auto) Lymph # (Auto) [place] # (Auto) Eos # (Auto) Baso # (Auto) Abs Immat Gran (auto) Absolute Neuts (auto) Absolute Nucleated RBC Nucleated RBC % (auto) Neutrophils % (Manual) Band Neutrophils % Lymphocytes % (Manual) Monocytes % (Manual) Abs Neuts (Manual) Lymphocytes # (Manual) Monocytes # (Manual) Toxic Vacuolation Platelet Estimate Large Platelets Plt Morphology Comment RBC Morphology Ovalocytes [place] Cells Smear Tech's Comments PT INR APTT aPTT Heparin Protocol VBG pH VBG pCO2 VBG pO2 VBG HCO3 VBG O2 Saturation VBG Base Excess Sodium 151 H Potassium 2.9 L Chloride 115 H Carbon Dioxide 24 Anion Gap 15 BUN 27 H Creatinine 0.85 Estim Creat Clear Calc 63.5 Estimated GFR > 60 POC Glucose 154 H Random Glucose 179 H Lactic Acid Lactic Acid F/U @ 2Hr Calcium 7.7 L Magnesium Total Bilirubin Direct Bilirubin AST ALT Alkaline Phosphatase Ammonia Troponin I High Sens B-Natriuretic Peptide Total Protein Albumin Urine Color Urine Appearance Urine pH Ur Specific [place] Urine Protein Urine Glucose (UA) Urine Ketones Urine Blood Urine Nitrite Ur Leukocyte Esterase Urine RBC Urine WBC Ur Squamous Epith Cells Amorphous Sediment Urine Bacteria RBC Casts Vancomycin Trough 5.7 L COVID-19 (ELLEN) COVID-19 Clin Com Hepatitis A IgM Ab Hep Bs Antigen Hep Bs Antibody Hep B Core Total Ab Hepatitis C Ab (EIA) Blood Type Antibody Screen 12/28/21 12/28/21 12/28/21 06:09 07:47 08:19 WBC RBC Hgb Hct MCV MCH MCHC RDW Plt Count MPV Immature Gran % (Auto) Neut % (Auto) Lymph % (Auto) [place] % (Auto) Eos % (Auto) Baso % (Auto) Lymph # (Auto) [place] # (Auto) Eos # (Auto) Baso # (Auto) Abs Immat Gran (auto) Absolute Neuts (auto) Absolute Nucleated RBC Nucleated RBC % (auto) Neutrophils % (Manual) Band Neutrophils % Lymphocytes % (Manual) Monocytes % (Manual) Abs Neuts (Manual) Lymphocytes # (Manual) Monocytes # (Manual) Toxic Vacuolation Platelet Estimate Large Platelets Plt Morphology Comment RBC Morphology Ovalocytes [place] Cells Smear Tech's Comments PT INR APTT aPTT Heparin Protocol VBG pH VBG pCO2 VBG pO2 VBG HCO3 VBG O2 Saturation VBG Base Excess Sodium 147 H Potassium 2.7 L Chloride 112 H Carbon Dioxide 25 Anion Gap 13 BUN 24 H Creatinine 0.85 0.82 Estim Creat Clear Calc 63.5 65.8 Estimated GFR > 60 > 60 POC Glucose 239 H Random Glucose 251 H Lactic Acid Lactic Acid F/U @ 2Hr Calcium 7.6 L Magnesium Total Bilirubin Direct Bilirubin AST ALT Alkaline Phosphatase Ammonia Troponin I High Sens B-Natriuretic Peptide Total Protein Albumin Urine Color Urine Appearance Urine pH Ur Specific [place] Urine Protein Urine Glucose (UA) Urine Ketones Urine Blood Urine Nitrite Ur Leukocyte Esterase Urine RBC Urine WBC Ur Squamous Epith Cells Amorphous Sediment Urine Bacteria RBC Casts Vancomycin Trough COVID-19 (ELLEN) COVID-19 Clin Com Hepatitis A IgM Ab Hep Bs Antigen Hep Bs Antibody Hep B Core Total Ab Hepatitis C Ab (EIA) Blood Type Antibody Screen 12/28/21 12/28/21 12/28/21 11:01 17:00 20:43 WBC RBC Hgb Hct MCV MCH MCHC RDW Plt Count MPV Immature Gran % (Auto) Neut % (Auto) Lymph % (Auto) [place] % (Auto) Eos % (Auto) Baso % (Auto) Lymph # (Auto) [place] # (Auto) Eos # (Auto) Baso # (Auto) Abs Immat Gran (auto) Absolute Neuts (auto) Absolute Nucleated RBC Nucleated RBC % (auto) Neutrophils % (Manual) Band Neutrophils % Lymphocytes % (Manual) Monocytes % (Manual) Abs Neuts (Manual) Lymphocytes # (Manual) Monocytes # (Manual) Toxic Vacuolation Platelet Estimate Large Platelets Plt Morphology Comment RBC Morphology Ovalocytes [place] Cells Smear Tech's Comments PT INR APTT aPTT Heparin Protocol VBG pH VBG pCO2 VBG pO2 VBG HCO3 VBG O2 Saturation VBG Base Excess Sodium Potassium Chloride Carbon Dioxide Anion Gap BUN Creatinine Estim Creat Clear Calc Estimated GFR POC Glucose 180 H 160 H 185 H Random Glucose Lactic Acid Lactic Acid F/U @ 2Hr Calcium Magnesium Total Bilirubin Direct Bilirubin AST ALT Alkaline Phosphatase Ammonia Troponin I High Sens B-Natriuretic Peptide Total Protein Albumin Urine Color Urine Appearance Urine pH Ur Specific [place] Urine Protein Urine Glucose (UA) Urine Ketones Urine Blood Urine Nitrite Ur Leukocyte Esterase Urine RBC Urine WBC Ur Squamous Epith Cells Amorphous Sediment Urine Bacteria RBC Casts Vancomycin Trough COVID-19 (ELLEN) COVID-19 Clin Com Hepatitis A IgM Ab Hep Bs Antigen Hep Bs Antibody Hep B Core Total Ab Hepatitis C Ab (EIA) Blood Type Antibody Screen 12/29/21 12/29/21 12/29/21 05:26 07:34 11:48 WBC RBC Hgb Hct MCV MCH MCHC RDW Plt Count MPV Immature Gran % (Auto) Neut % (Auto) Lymph % (Auto) [place] % (Auto) Eos % (Auto) Baso % (Auto) Lymph # (Auto) [place] # (Auto) Eos # (Auto) Baso # (Auto) Abs Immat Gran (auto) Absolute Neuts (auto) Absolute Nucleated RBC Nucleated RBC % (auto) Neutrophils % (Manual) Band Neutrophils % Lymphocytes % (Manual) Monocytes % (Manual) Abs Neuts (Manual) Lymphocytes # (Manual) Monocytes # (Manual) Toxic Vacuolation Platelet Estimate Large Platelets Plt Morphology Comment RBC Morphology Ovalocytes [place] Cells Smear Tech's Comments PT INR APTT aPTT Heparin Protocol VBG pH VBG pCO2 VBG pO2 VBG HCO3 VBG O2 Saturation VBG Base Excess Sodium Potassium Chloride Carbon Dioxide Anion Gap BUN Creatinine 0.76 Estim Creat Clear Calc 71.0 Estimated GFR > 60 POC Glucose 206 H 177 H Random Glucose Lactic Acid Lactic Acid F/U @ 2Hr Calcium Magnesium Total Bilirubin Direct Bilirubin AST ALT Alkaline Phosphatase Ammonia Troponin I High Sens B-Natriuretic Peptide Total Protein Albumin Urine Color Urine Appearance Urine pH Ur Specific [place] Urine Protein Urine Glucose (UA) Urine Ketones Urine Blood Urine Nitrite Ur Leukocyte Esterase Urine RBC Urine WBC Ur Squamous Epith Cells Amorphous Sediment Urine Bacteria RBC Casts Vancomycin Trough COVID-19 (ELLEN) COVID-19 Clin Com Hepatitis A IgM Ab Hep Bs Antigen Hep Bs Antibody Hep B Core Total Ab Hepatitis C Ab (EIA) Blood Type Antibody Screen 12/29/21 12/29/21 12/29/21 12:24 16:13 20:26 WBC RBC Hgb Hct MCV MCH MCHC RDW Plt Count MPV Immature Gran % (Auto) Neut % (Auto) Lymph % (Auto) [place] % (Auto) Eos % (Auto) Baso % (Auto) Lymph # (Auto) [place] # (Auto) Eos # (Auto) Baso # (Auto) Abs Immat Gran (auto) Absolute Neuts (auto) Absolute Nucleated RBC Nucleated RBC % (auto) Neutrophils % (Manual) Band Neutrophils % Lymphocytes % (Manual) Monocytes % (Manual) Abs Neuts (Manual) Lymphocytes # (Manual) Monocytes # (Manual) Toxic Vacuolation Platelet Estimate Large Platelets Plt Morphology Comment RBC Morphology Ovalocytes [place] Cells Smear Tech's Comments PT INR APTT aPTT Heparin Protocol VBG pH VBG pCO2 VBG pO2 VBG HCO3 VBG O2 Saturation VBG Base Excess Sodium 142 Potassium 2.9 L Chloride 107 Carbon Dioxide 25 Anion Gap 13 BUN 13 Creatinine 0.72 Estim Creat Clear Calc 74.9 Estimated GFR > 60 POC Glucose 142 H 177 H Random Glucose 182 H Lactic Acid Lactic Acid F/U @ 2Hr Calcium 7.6 L Magnesium Total Bilirubin Direct Bilirubin AST ALT Alkaline Phosphatase Ammonia Troponin I High Sens B-Natriuretic Peptide Total Protein Albumin Urine Color Urine Appearance Urine pH Ur Specific [place] Urine Protein Urine Glucose (UA) Urine Ketones Urine Blood Urine Nitrite Ur Leukocyte Esterase Urine RBC Urine WBC Ur Squamous Epith Cells Amorphous Sediment Urine Bacteria RBC Casts Vancomycin Trough COVID-19 (ELLEN) COVID-19 Clin Com Hepatitis A IgM Ab Hep Bs Antigen Hep Bs Antibody Hep B Core Total Ab Hepatitis C Ab (EIA) Blood Type Antibody Screen 12/30/21 12/30/21 12/30/21 05:45 05:45 07:07 WBC RBC Hgb Hct MCV MCH MCHC RDW Plt Count MPV Immature Gran % (Auto) Neut % (Auto) Lymph % (Auto) [place] % (Auto) Eos % (Auto) Baso % (Auto) Lymph # (Auto) [place] # (Auto) Eos # (Auto) Baso # (Auto) Abs Immat Gran (auto) Absolute Neuts (auto) Absolute Nucleated RBC Nucleated RBC % (auto) Neutrophils % (Manual) Band Neutrophils % Lymphocytes % (Manual) Monocytes % (Manual) Abs Neuts (Manual) Lymphocytes # (Manual) Monocytes # (Manual) Toxic Vacuolation Platelet Estimate Large Platelets Plt Morphology Comment RBC Morphology Ovalocytes [place] Cells Smear Tech's Comments PT INR APTT aPTT Heparin Protocol VBG pH VBG pCO2 VBG pO2 VBG HCO3 VBG O2 Saturation VBG Base Excess Sodium 138 Potassium 2.7 L Chloride 102 Carbon Dioxide 28 Anion Gap 11 L BUN 7 L Creatinine 0.72 0.70 Estim Creat Clear Calc 74.9 77.1 Estimated GFR > 60 > 60 POC Glucose 183 H Random Glucose 219 H Lactic Acid Lactic Acid F/U @ 2Hr Calcium 7.2 L Magnesium Total Bilirubin Direct Bilirubin AST ALT Alkaline Phosphatase Ammonia Troponin I High Sens B-Natriuretic Peptide Total Protein Albumin Urine Color Urine Appearance Urine pH Ur Specific [place] Urine Protein Urine Glucose (UA) Urine Ketones Urine Blood Urine Nitrite Ur Leukocyte Esterase Urine RBC Urine WBC Ur Squamous Epith Cells Amorphous Sediment Urine Bacteria RBC Casts Vancomycin Trough COVID-19 (ELLEN) COVID-19 Clin Com Hepatitis A IgM Ab Hep Bs Antigen Hep Bs Antibody Hep B Core Total Ab Hepatitis C Ab (EIA) Blood Type Antibody Screen 12/30/21 12/30/21 12/30/21 10:58 16:21 19:28 WBC RBC Hgb Hct MCV MCH MCHC RDW Plt Count MPV Immature Gran % (Auto) Neut % (Auto) Lymph % (Auto) [place] % (Auto) Eos % (Auto) Baso % (Auto) Lymph # (Auto) [place] # (Auto) Eos # (Auto) Baso # (Auto) Abs Immat Gran (auto) Absolute Neuts (auto) Absolute Nucleated RBC Nucleated RBC % (auto) Neutrophils % (Manual) Band Neutrophils % Lymphocytes % (Manual) Monocytes % (Manual) Abs Neuts (Manual) Lymphocytes # (Manual) Monocytes # (Manual) Toxic Vacuolation Platelet Estimate Large Platelets Plt Morphology Comment RBC Morphology Ovalocytes [place] Cells Smear Tech's Comments PT INR APTT aPTT Heparin Protocol VBG pH VBG pCO2 VBG pO2 VBG HCO3 VBG O2 Saturation VBG Base Excess Sodium Potassium Chloride Carbon Dioxide Anion Gap BUN Creatinine Estim Creat Clear Calc Estimated GFR POC Glucose 173 H 127 H 212 H Random Glucose Lactic Acid Lactic Acid F/U @ 2Hr Calcium Magnesium Total Bilirubin Direct Bilirubin AST ALT Alkaline Phosphatase Ammonia Troponin I High Sens B-Natriuretic Peptide Total Protein Albumin Urine Color Urine Appearance Urine pH Ur Specific [place] Urine Protein Urine Glucose (UA) Urine Ketones Urine Blood Urine Nitrite Ur Leukocyte Esterase Urine RBC Urine WBC Ur Squamous Epith Cells Amorphous Sediment Urine Bacteria RBC Casts Vancomycin Trough COVID-19 (ELLEN) COVID-19 Clin Com Hepatitis A IgM Ab Hep Bs Antigen Hep Bs Antibody Hep B Core Total Ab Hepatitis C Ab (EIA) Blood Type Antibody Screen 12/31/21 12/31/21 12/31/21 06:04 07:28 08:03 WBC RBC Hgb Hct MCV MCH MCHC RDW Plt Count MPV Immature Gran % (Auto) Neut % (Auto) Lymph % (Auto) [place] % (Auto) Eos % (Auto) Baso % (Auto) Lymph # (Auto) [place] # (Auto) Eos # (Auto) Baso # (Auto) Abs Immat Gran (auto) Absolute Neuts (auto) Absolute Nucleated RBC Nucleated RBC % (auto) Neutrophils % (Manual) Band Neutrophils % Lymphocytes % (Manual) Monocytes % (Manual) Abs Neuts (Manual) Lymphocytes # (Manual) Monocytes # (Manual) Toxic Vacuolation Platelet Estimate Large Platelets Plt Morphology Comment RBC Morphology Ovalocytes [place] Cells Smear Tech's Comments PT INR APTT aPTT Heparin Protocol VBG pH VBG pCO2 VBG pO2 VBG HCO3 VBG O2 Saturation VBG Base Excess Sodium Potassium Chloride Carbon Dioxide Anion Gap BUN Creatinine 0.66 Estim Creat Clear Calc 81.8 Estimated GFR > 60 POC Glucose 190 H 181 H Random Glucose Lactic Acid Lactic Acid F/U @ 2Hr Calcium Magnesium Total Bilirubin Direct Bilirubin AST ALT Alkaline Phosphatase Ammonia Troponin I High Sens B-Natriuretic Peptide Total Protein Albumin Urine Color Urine Appearance Urine pH Ur Specific [place] Urine Protein Urine Glucose (UA) Urine Ketones Urine Blood Urine Nitrite Ur Leukocyte Esterase Urine RBC Urine WBC Ur Squamous Epith Cells Amorphous Sediment Urine Bacteria RBC Casts Vancomycin Trough COVID-19 (ELLEN) COVID-19 Clin Com Hepatitis A IgM Ab Hep Bs Antigen Hep Bs Antibody Hep B Core Total Ab Hepatitis C Ab (EIA) Blood Type Antibody Screen 12/31/21 12/31/21 12/31/21 09:00 09:00 09:00 WBC 8.8 RBC 3.11 L Hgb 9.4 L Hct 29.0 L MCV 93.2 MCH 30.2 MCHC 32.4 RDW 13.5 Plt Count 214 D MPV 11.7 Immature Gran % (Auto) 1.3 H Neut % (Auto) 75.7 H Lymph % (Auto) 15.8 L [place] % (Auto) 6.1 Eos % (Auto) 0.9 Baso % (Auto) 0.2 Lymph # (Auto) 1.4 [place] # (Auto) 0.5 Eos # (Auto) 0.1 Baso # (Auto) 0.0 Abs Immat Gran (auto) 0.11 H Absolute Neuts (auto) 6.7 Absolute Nucleated RBC 0.000 Nucleated RBC % (auto) 0.0 Neutrophils % (Manual) Band Neutrophils % Lymphocytes % (Manual) Monocytes % (Manual) Abs Neuts (Manual) Lymphocytes # (Manual) Monocytes # (Manual) Toxic Vacuolation Platelet Estimate Large Platelets Plt Morphology Comment RBC Morphology Ovalocytes [place] Cells Smear Tech's Comments VERIFIED PT 17.8 H INR 1.5 H APTT aPTT Heparin Protocol VBG pH VBG pCO2 VBG pO2 VBG HCO3 VBG O2 Saturation VBG Base Excess Sodium 138 Potassium 2.8 L Chloride 101 Carbon Dioxide 28 Anion Gap 12 BUN 6 L Creatinine 0.71 Estim Creat Clear Calc 76.0 Estimated GFR > 60 POC Glucose Random Glucose 193 H Lactic Acid Lactic Acid F/U @ 2Hr Calcium 6.9 L Magnesium 1.1 L* Total Bilirubin Direct Bilirubin AST ALT Alkaline Phosphatase Ammonia Troponin I High Sens B-Natriuretic Peptide Total Protein Albumin Urine Color Urine Appearance Urine pH Ur Specific [place] Urine Protein Urine Glucose (UA) Urine Ketones Urine Blood Urine Nitrite Ur Leukocyte Esterase Urine RBC Urine WBC Ur Squamous Epith Cells Amorphous Sediment Urine Bacteria RBC Casts Vancomycin Trough COVID-19 (ELLEN) COVID-19 Clin Com Hepatitis A IgM Ab Hep Bs Antigen Hep Bs Antibody Hep B Core Total Ab Hepatitis C Ab (EIA) Blood Type Antibody Screen 12/31/21 12/31/21 12/31/21 12:48 15:54 20:19 WBC RBC Hgb Hct MCV MCH MCHC RDW Plt Count MPV Immature Gran % (Auto) Neut % (Auto) Lymph % (Auto) [place] % (Auto) Eos % (Auto) Baso % (Auto) Lymph # (Auto) [place] # (Auto) Eos # (Auto) Baso # (Auto) Abs Immat Gran (auto) Absolute Neuts (auto) Absolute Nucleated RBC Nucleated RBC % (auto) Neutrophils % (Manual) Band Neutrophils % Lymphocytes % (Manual) Monocytes % (Manual) Abs Neuts (Manual) Lymphocytes # (Manual) Monocytes # (Manual) Toxic Vacuolation Platelet Estimate Large Platelets Plt Morphology Comment RBC Morphology Ovalocytes [place] Cells Smear Tech's Comments PT INR APTT aPTT Heparin Protocol VBG pH VBG pCO2 VBG pO2 VBG HCO3 VBG O2 Saturation VBG Base Excess Sodium Potassium Chloride Carbon Dioxide Anion Gap BUN Creatinine Estim Creat Clear Calc Estimated GFR POC Glucose 121 H 131 H 171 H Random Glucose Lactic Acid Lactic Acid F/U @ 2Hr Calcium Magnesium Total Bilirubin Direct Bilirubin AST ALT Alkaline Phosphatase Ammonia Troponin I High Sens B-Natriuretic Peptide Total Protein Albumin Urine Color Urine Appearance Urine pH Ur Specific [place] Urine Protein Urine Glucose (UA) Urine Ketones Urine Blood Urine Nitrite Ur Leukocyte Esterase Urine RBC Urine WBC Ur Squamous Epith Cells Amorphous Sediment Urine Bacteria RBC Casts Vancomycin Trough COVID-19 (ELLEN) COVID-19 Clin Com Hepatitis A IgM Ab Hep Bs Antigen Hep Bs Antibody Hep B Core Total Ab Hepatitis C Ab (EIA) Blood Type Antibody Screen 01/01/22 01/01/22 01/01/22 06:24 06:24 07:11 WBC 7.1 RBC 2.95 L Hgb 9.0 L Hct 28.2 L MCV 95.6 MCH 30.5 MCHC 31.9 RDW 13.3 Plt Count 240 MPV 11.5 Immature Gran % (Auto) Neut % (Auto) Lymph % (Auto) [place] % (Auto) Eos % (Auto) Baso % (Auto) Lymph # (Auto) [place] # (Auto) Eos # (Auto) Baso # (Auto) Abs Immat Gran (auto) Absolute Neuts (auto) Absolute Nucleated RBC 0.000 Nucleated RBC % (auto) 0.0 Neutrophils % (Manual) Band Neutrophils % Lymphocytes % (Manual) Monocytes % (Manual) Abs Neuts (Manual) Lymphocytes # (Manual) Monocytes # (Manual) Toxic Vacuolation Platelet Estimate Large Platelets Plt Morphology Comment RBC Morphology Ovalocytes [place] Cells Smear Tech's Comments PT INR APTT aPTT Heparin Protocol VBG pH VBG pCO2 VBG pO2 VBG HCO3 VBG O2 Saturation VBG Base Excess Sodium 139 Potassium 3.0 L Chloride 100 Carbon Dioxide 31 H Anion Gap 11 L BUN 4 L Creatinine 0.63 Estim Creat Clear Calc 85.6 Estimated GFR > 60 POC Glucose 134 H Random Glucose 156 H Lactic Acid Lactic Acid F/U @ 2Hr Calcium 7.0 L Magnesium 1.4 L* Total Bilirubin 0.7 Direct Bilirubin 0.4 AST 13 D ALT 26 Alkaline Phosphatase 95 D Ammonia Troponin I High Sens B-Natriuretic Peptide Total Protein 5.8 L Albumin 2.6 L Urine Color Urine Appearance Urine pH Ur Specific [place] Urine Protein Urine Glucose (UA) Urine Ketones Urine Blood Urine Nitrite Ur Leukocyte Esterase Urine RBC Urine WBC Ur Squamous Epith Cells Amorphous Sediment Urine Bacteria RBC Casts Vancomycin Trough COVID-19 (ELLEN) COVID-19 Clin Com Hepatitis A IgM Ab Hep Bs Antigen Hep Bs Antibody Hep B Core Total Ab Hepatitis C Ab (EIA) Blood Type Antibody Screen 01/01/22 01/01/22 01/01/22 11:42 16:30 19:31 WBC RBC Hgb Hct MCV MCH MCHC RDW Plt Count MPV Immature Gran % (Auto) Neut % (Auto) Lymph % (Auto) [place] % (Auto) Eos % (Auto) Baso % (Auto) Lymph # (Auto) [place] # (Auto) Eos # (Auto) Baso # (Auto) Abs Immat Gran (auto) Absolute Neuts (auto) Absolute Nucleated RBC Nucleated RBC % (auto) Neutrophils % (Manual) Band Neutrophils % Lymphocytes % (Manual) Monocytes % (Manual) Abs Neuts (Manual) Lymphocytes # (Manual) Monocytes # (Manual) Toxic Vacuolation Platelet Estimate Large Platelets Plt Morphology Comment RBC Morphology Ovalocytes [place] Cells Smear Tech's Comments PT INR APTT aPTT Heparin Protocol VBG pH VBG pCO2 VBG pO2 VBG HCO3 VBG O2 Saturation VBG Base Excess Sodium Potassium Chloride Carbon Dioxide Anion Gap BUN Creatinine Estim Creat Clear Calc Estimated GFR POC Glucose 142 H 139 H 164 H Random Glucose Lactic Acid Lactic Acid F/U @ 2Hr Calcium Magnesium Total Bilirubin Direct Bilirubin AST ALT Alkaline Phosphatase Ammonia Troponin I High Sens B-Natriuretic Peptide Total Protein Albumin Urine Color Urine Appearance Urine pH Ur Specific [place] Urine Protein Urine Glucose (UA) Urine Ketones Urine Blood Urine Nitrite Ur Leukocyte Esterase Urine RBC Urine WBC Ur Squamous Epith Cells Amorphous Sediment Urine Bacteria RBC Casts Vancomycin Trough COVID-19 (ELLEN) COVID-19 Clin Com Hepatitis A IgM Ab Hep Bs Antigen Hep Bs Antibody Hep B Core Total Ab Hepatitis C Ab (EIA) Blood Type Antibody Screen 01/02/22 01/02/22 01/02/22 06:10 07:15 10:50 WBC RBC Hgb Hct MCV MCH MCHC RDW Plt Count MPV Immature Gran % (Auto) Neut % (Auto) Lymph % (Auto) [place] % (Auto) Eos % (Auto) Baso % (Auto) Lymph # (Auto) [place] # (Auto) Eos # (Auto) Baso # (Auto) Abs Immat Gran (auto) Absolute Neuts (auto) Absolute Nucleated RBC Nucleated RBC % (auto) Neutrophils % (Manual) Band Neutrophils % Lymphocytes % (Manual) Monocytes % (Manual) Abs Neuts (Manual) Lymphocytes # (Manual) Monocytes # (Manual) Toxic Vacuolation Platelet Estimate Large Platelets Plt Morphology Comment RBC Morphology Ovalocytes [place] Cells Smear Tech's Comments PT INR APTT aPTT Heparin Protocol VBG pH VBG pCO2 VBG pO2 VBG HCO3 VBG O2 Saturation VBG Base Excess Sodium 137 Potassium 3.5 Chloride 101 Carbon Dioxide 27 Anion Gap 13 BUN 6 L Creatinine 0.62 Estim Creat Clear Calc 87.0 Estimated GFR > 60 POC Glucose 117 H 183 H Random Glucose 124 H Lactic Acid Lactic Acid F/U @ 2Hr Calcium 7.3 L Magnesium 1.7 Total Bilirubin Direct Bilirubin AST ALT Alkaline Phosphatase Ammonia Troponin I High Sens B-Natriuretic Peptide Total Protein Albumin Urine Color Urine Appearance Urine pH Ur Specific [place] Urine Protein Urine Glucose (UA) Urine Ketones Urine Blood Urine Nitrite Ur Leukocyte Esterase Urine RBC Urine WBC Ur Squamous Epith Cells Amorphous Sediment Urine Bacteria RBC Casts Vancomycin Trough COVID-19 (ELLEN) COVID-19 Clin Com Hepatitis A IgM Ab Hep Bs Antigen Hep Bs Antibody Hep B Core Total Ab Hepatitis C Ab (EIA) Blood Type Antibody Screen 01/02/22 01/02/22 01/03/22 15:10 19:44 06:17 WBC RBC Hgb Hct MCV MCH MCHC RDW Plt Count MPV Immature Gran % (Auto) Neut % (Auto) Lymph % (Auto) [place] % (Auto) Eos % (Auto) Baso % (Auto) Lymph # (Auto) [place] # (Auto) Eos # (Auto) Baso # (Auto) Abs Immat Gran (auto) Absolute Neuts (auto) Absolute Nucleated RBC Nucleated RBC % (auto) Neutrophils % (Manual) Band Neutrophils % Lymphocytes % (Manual) Monocytes % (Manual) Abs Neuts (Manual) Lymphocytes # (Manual) Monocytes # (Manual) Toxic Vacuolation Platelet Estimate Large Platelets Plt Morphology Comment RBC Morphology Ovalocytes [place] Cells Smear Tech's Comments PT INR APTT aPTT Heparin Protocol VBG pH VBG pCO2 VBG pO2 VBG HCO3 VBG O2 Saturation VBG Base Excess Sodium 140 Potassium 3.6 Chloride 101 Carbon Dioxide 29 Anion Gap 14 BUN 5 L Creatinine 0.62 Estim Creat Clear Calc 87.0 Estimated GFR > 60 POC Glucose 109 117 H Random Glucose 116 H Lactic Acid Lactic Acid F/U @ 2Hr Calcium 7.8 L D Magnesium 1.6 Total Bilirubin Direct Bilirubin AST ALT Alkaline Phosphatase Ammonia Troponin I High Sens B-Natriuretic Peptide Total Protein Albumin Urine Color Urine Appearance Urine pH Ur Specific [place] Urine Protein Urine Glucose (UA) Urine Ketones Urine Blood Urine Nitrite Ur Leukocyte Esterase Urine RBC Urine WBC Ur Squamous Epith Cells Amorphous Sediment Urine Bacteria RBC Casts Vancomycin Trough COVID-19 (ELLEN) COVID-19 Clin Com Hepatitis A IgM Ab Hep Bs Antigen Hep Bs Antibody Hep B Core Total Ab Hepatitis C Ab (EIA) Blood Type Antibody Screen 01/03/22 01/03/22 01/03/22 07:40 11:21 16:40 WBC RBC Hgb Hct MCV MCH MCHC RDW Plt Count MPV Immature Gran % (Auto) Neut % (Auto) Lymph % (Auto) [place] % (Auto) Eos % (Auto) Baso % (Auto) Lymph # (Auto) [place] # (Auto) Eos # (Auto) Baso # (Auto) Abs Immat Gran (auto) Absolute Neuts (auto) Absolute Nucleated RBC Nucleated RBC % (auto) Neutrophils % (Manual) Band Neutrophils % Lymphocytes % (Manual) Monocytes % (Manual) Abs Neuts (Manual) Lymphocytes # (Manual) Monocytes # (Manual) Toxic Vacuolation Platelet Estimate Large Platelets Plt Morphology Comment RBC Morphology Ovalocytes [place] Cells Smear Tech's Comments PT INR APTT aPTT Heparin Protocol VBG pH VBG pCO2 VBG pO2 VBG HCO3 VBG O2 Saturation VBG Base Excess Sodium Potassium Chloride Carbon Dioxide Anion Gap BUN Creatinine Estim Creat Clear Calc Estimated GFR POC Glucose 102 131 H 120 H Random Glucose Lactic Acid Lactic Acid F/U @ 2Hr Calcium Magnesium Total Bilirubin Direct Bilirubin AST ALT Alkaline Phosphatase Ammonia Troponin I High Sens B-Natriuretic Peptide Total Protein Albumin Urine Color Urine Appearance Urine pH Ur Specific [place] Urine Protein Urine Glucose (UA) Urine Ketones Urine Blood Urine Nitrite Ur Leukocyte Esterase Urine RBC Urine WBC Ur Squamous Epith Cells Amorphous Sediment Urine Bacteria RBC Casts Vancomycin Trough COVID-19 (ELLEN) COVID-19 Clin Com Hepatitis A IgM Ab Hep Bs Antigen Hep Bs Antibody Hep B Core Total Ab Hepatitis C Ab (EIA) Blood Type Antibody Screen 01/03/22 01/04/22 01/04/22 19:38 06:49 06:49 WBC 5.5 RBC 3.23 L Hgb 10.0 L Hct 30.8 L MCV 95.4 MCH 31.0 MCHC 32.5 RDW 13.5 Plt Count 282 MPV 10.3 Immature Gran % (Auto) Neut % (Auto) Lymph % (Auto) [place] % (Auto) Eos % (Auto) Baso % (Auto) Lymph # (Auto) [place] # (Auto) Eos # (Auto) Baso # (Auto) Abs Immat Gran (auto) Absolute Neuts (auto) Absolute Nucleated RBC 0.000 Nucleated RBC % (auto) 0.0 Neutrophils % (Manual) Band Neutrophils % Lymphocytes % (Manual) Monocytes % (Manual) Abs Neuts (Manual) Lymphocytes # (Manual) Monocytes # (Manual) Toxic Vacuolation Platelet Estimate Large Platelets Plt Morphology Comment RBC Morphology Ovalocytes [place] Cells Smear Tech's Comments PT INR APTT aPTT Heparin Protocol VBG pH VBG pCO2 VBG pO2 VBG HCO3 VBG O2 Saturation VBG Base Excess Sodium 139 Potassium 3.5 Chloride 100 Carbon Dioxide 33 H Anion Gap 10 L BUN 6 L Creatinine 0.59 Estim Creat Clear Calc 91.5 Estimated GFR > 60 POC Glucose 127 H Random Glucose 116 H Lactic Acid Lactic Acid F/U @ 2Hr Calcium 7.9 L Magnesium 1.5 L Total Bilirubin Direct Bilirubin AST ALT Alkaline Phosphatase Ammonia Troponin I High Sens B-Natriuretic Peptide Total Protein Albumin Urine Color Urine Appearance Urine pH Ur Specific [place] Urine Protein Urine Glucose (UA) Urine Ketones Urine Blood Urine Nitrite Ur Leukocyte Esterase Urine RBC Urine WBC Ur Squamous Epith Cells Amorphous Sediment Urine Bacteria RBC Casts Vancomycin Trough COVID-19 (ELLEN) COVID-19 Clin Com Hepatitis A IgM Ab Hep Bs Antigen Hep Bs Antibody Hep B Core Total Ab Hepatitis C Ab (EIA) Blood Type Antibody Screen 01/04/22 01/04/22 01/04/22 07:01 11:33 17:29 WBC RBC Hgb Hct MCV MCH MCHC RDW Plt Count MPV Immature Gran % (Auto) Neut % (Auto) Lymph % (Auto) [place] % (Auto) Eos % (Auto) Baso % (Auto) Lymph # (Auto) [place] # (Auto) Eos # (Auto) Baso # (Auto) Abs Immat Gran (auto) Absolute Neuts (auto) Absolute Nucleated RBC Nucleated RBC % (auto) Neutrophils % (Manual) Band Neutrophils % Lymphocytes % (Manual) Monocytes % (Manual) Abs Neuts (Manual) Lymphocytes # (Manual) Monocytes # (Manual) Toxic Vacuolation Platelet Estimate Large Platelets Plt Morphology Comment RBC Morphology Ovalocytes [place] Cells Smear Tech's Comments PT INR APTT aPTT Heparin Protocol VBG pH VBG pCO2 VBG pO2 VBG HCO3 VBG O2 Saturation VBG Base Excess Sodium Potassium Chloride Carbon Dioxide Anion Gap BUN Creatinine Estim Creat Clear Calc Estimated GFR POC Glucose 109 149 H 142 H Random Glucose Lactic Acid Lactic Acid F/U @ 2Hr Calcium Magnesium Total Bilirubin Direct Bilirubin AST ALT Alkaline Phosphatase Ammonia Troponin I High Sens B-Natriuretic Peptide Total Protein Albumin Urine Color Urine Appearance Urine pH Ur Specific [place] Urine Protein Urine Glucose (UA) Urine Ketones Urine Blood Urine Nitrite Ur Leukocyte Esterase Urine RBC Urine WBC Ur Squamous Epith Cells Amorphous Sediment Urine Bacteria RBC Casts Vancomycin Trough COVID-19 (ELLEN) COVID-19 Clin Com Hepatitis A IgM Ab Hep Bs Antigen Hep Bs Antibody Hep B Core Total Ab Hepatitis C Ab (EIA) Blood Type Antibody Screen 01/04/22 01/05/22 01/05/22 21:05 07:25 10:52 WBC RBC Hgb Hct MCV MCH MCHC RDW Plt Count MPV Immature Gran % (Auto) Neut % (Auto) Lymph % (Auto) [place] % (Auto) Eos % (Auto) Baso % (Auto) Lymph # (Auto) [place] # (Auto) Eos # (Auto) Baso # (Auto) Abs Immat Gran (auto) Absolute Neuts (auto) Absolute Nucleated RBC Nucleated RBC % (auto) Neutrophils % (Manual) Band Neutrophils % Lymphocytes % (Manual) Monocytes % (Manual) Abs Neuts (Manual) Lymphocytes # (Manual) Monocytes # (Manual) Toxic Vacuolation Platelet Estimate Large Platelets Plt Morphology Comment RBC Morphology Ovalocytes [place] Cells Smear Tech's Comments PT INR APTT aPTT Heparin Protocol VBG pH VBG pCO2 VBG pO2 VBG HCO3 VBG O2 Saturation VBG Base Excess Sodium Potassium Chloride Carbon Dioxide Anion Gap BUN Creatinine Estim Creat Clear Calc Estimated GFR POC Glucose 189 H 137 H 114 Random Glucose Lactic Acid Lactic Acid F/U @ 2Hr Calcium Magnesium Total Bilirubin Direct Bilirubin AST ALT Alkaline Phosphatase Ammonia Troponin I High Sens B-Natriuretic Peptide Total Protein Albumin Urine Color Urine Appearance Urine pH Ur Specific [place] Urine Protein Urine Glucose (UA) Urine Ketones Urine Blood Urine Nitrite Ur Leukocyte Esterase Urine RBC Urine WBC Ur Squamous Epith Cells Amorphous Sediment Urine Bacteria RBC Casts Vancomycin Trough COVID-19 (ELLEN) COVID-19 Clin Com Hepatitis A IgM Ab Hep Bs Antigen Hep Bs Antibody Hep B Core Total Ab Hepatitis C Ab (EIA) Blood Type Antibody Screen 01/05/22 01/05/22 01/05/22 15:04 15:06 15:58 WBC RBC Hgb Hct MCV MCH MCHC RDW Plt Count MPV Immature Gran % (Auto) Neut % (Auto) Lymph % (Auto) [place] % (Auto) Eos % (Auto) Baso % (Auto) Lymph # (Auto) [place] # (Auto) Eos # (Auto) Baso # (Auto) Abs Immat Gran (auto) Absolute Neuts (auto) Absolute Nucleated RBC Nucleated RBC % (auto) Neutrophils % (Manual) Band Neutrophils % Lymphocytes % (Manual) Monocytes % (Manual) Abs Neuts (Manual) Lymphocytes # (Manual) Monocytes # (Manual) Toxic Vacuolation Platelet Estimate Large Platelets Plt Morphology Comment RBC Morphology Ovalocytes [place] Cells Smear Tech's Comments PT 27.4 H INR 2.3 H APTT aPTT Heparin Protocol 50.3 L VBG pH VBG pCO2 VBG pO2 VBG HCO3 VBG O2 Saturation VBG Base Excess Sodium Potassium Chloride Carbon Dioxide Anion Gap BUN Creatinine Estim Creat Clear Calc Estimated GFR POC Glucose 129 H Random Glucose Lactic Acid Lactic Acid F/U @ 2Hr Calcium Magnesium Total Bilirubin Direct Bilirubin AST ALT Alkaline Phosphatase Ammonia Troponin I High Sens B-Natriuretic Peptide Total Protein Albumin Urine Color Urine Appearance Urine pH Ur Specific [place] Urine Protein Urine Glucose (UA) Urine Ketones Urine Blood Urine Nitrite Ur Leukocyte Esterase Urine RBC Urine WBC Ur Squamous Epith Cells Amorphous Sediment Urine Bacteria RBC Casts Vancomycin Trough COVID-19 (ELLEN) COVID-19 Clin Com Hepatitis A IgM Ab Hep Bs Antigen Hep Bs Antibody Hep B Core Total Ab Hepatitis C Ab (EIA) Blood Type A Positive Antibody Screen NEGATIVE 01/05/22 01/06/22 01/06/22 19:02 08:14 08:14 WBC RBC Hgb Hct MCV MCH MCHC RDW Plt Count MPV Immature Gran % (Auto) Neut % (Auto) Lymph % (Auto) [place] % (Auto) Eos % (Auto) Baso % (Auto) Lymph # (Auto) [place] # (Auto) Eos # (Auto) Baso # (Auto) Abs Immat Gran (auto) Absolute Neuts (auto) Absolute Nucleated RBC Nucleated RBC % (auto) Neutrophils % (Manual) Band Neutrophils % Lymphocytes % (Manual) Monocytes % (Manual) Abs Neuts (Manual) Lymphocytes # (Manual) Monocytes # (Manual) Toxic Vacuolation Platelet Estimate Large Platelets Plt Morphology Comment RBC Morphology Ovalocytes [place] Cells Smear Tech's Comments PT 16.4 H INR 1.4 H APTT 37.9 Cancelled aPTT Heparin Protocol VBG pH VBG pCO2 VBG pO2 VBG HCO3 VBG O2 Saturation VBG Base Excess Sodium Potassium Chloride Carbon Dioxide Anion Gap BUN Creatinine Estim Creat Clear Calc Estimated GFR POC Glucose 150 H Random Glucose Lactic Acid Lactic Acid F/U @ 2Hr Calcium Magnesium Total Bilirubin Direct Bilirubin AST ALT Alkaline Phosphatase Ammonia Troponin I High Sens B-Natriuretic Peptide Total Protein Albumin Urine Color Urine Appearance Urine pH Ur Specific [place] Urine Protein Urine Glucose (UA) Urine Ketones Urine Blood Urine Nitrite Ur Leukocyte Esterase Urine RBC Urine WBC Ur Squamous Epith Cells Amorphous Sediment Urine Bacteria RBC Casts Vancomycin Trough COVID-19 (ELLEN) COVID-19 Clin Com Hepatitis A IgM Ab Hep Bs Antigen Hep Bs Antibody Hep B Core Total Ab Hepatitis C Ab (EIA) Blood Type Antibody Screen 01/06/22 01/06/22 01/06/22 08:57 11:20 16:49 WBC RBC Hgb Hct MCV MCH MCHC RDW Plt Count MPV Immature Gran % (Auto) Neut % (Auto) Lymph % (Auto) [place] % (Auto) Eos % (Auto) Baso % (Auto) Lymph # (Auto) [place] # (Auto) Eos # (Auto) Baso # (Auto) Abs Immat Gran (auto) Absolute Neuts (auto) Absolute Nucleated RBC Nucleated RBC % (auto) Neutrophils % (Manual) Band Neutrophils % Lymphocytes % (Manual) Monocytes % (Manual) Abs Neuts (Manual) Lymphocytes # (Manual) Monocytes # (Manual) Toxic Vacuolation Platelet Estimate Large Platelets Plt Morphology Comment RBC Morphology Ovalocytes [place] Cells Smear Tech's Comments PT INR APTT aPTT Heparin Protocol VBG pH VBG pCO2 VBG pO2 VBG HCO3 VBG O2 Saturation VBG Base Excess Sodium Potassium Chloride Carbon Dioxide Anion Gap BUN Creatinine Estim Creat Clear Calc Estimated GFR POC Glucose 134 H 128 H 112 Random Glucose Lactic Acid Lactic Acid F/U @ 2Hr Calcium Magnesium Total Bilirubin Direct Bilirubin AST ALT Alkaline Phosphatase Ammonia Troponin I High Sens B-Natriuretic Peptide Total Protein Albumin Urine Color Urine Appearance Urine pH Ur Specific [place] Urine Protein Urine Glucose (UA) Urine Ketones Urine Blood Urine Nitrite Ur Leukocyte Esterase Urine RBC Urine WBC Ur Squamous Epith Cells Amorphous Sediment Urine Bacteria RBC Casts Vancomycin Trough COVID-19 (ELLEN) COVID-19 Clin Com Hepatitis A IgM Ab Hep Bs Antigen Hep Bs Antibody Hep B Core Total Ab Hepatitis C Ab (EIA) Blood Type Antibody Screen 01/06/22 01/07/22 01/07/22 21:09 06:38 06:38 WBC RBC Hgb Hct MCV MCH MCHC RDW Plt Count MPV Immature Gran % (Auto) Neut % (Auto) Lymph % (Auto) [place] % (Auto) Eos % (Auto) Baso % (Auto) Lymph # (Auto) [place] # (Auto) Eos # (Auto) Baso # (Auto) Abs Immat Gran (auto) Absolute Neuts (auto) Absolute Nucleated RBC Nucleated RBC % (auto) Neutrophils % (Manual) Band Neutrophils % Lymphocytes % (Manual) Monocytes % (Manual) Abs Neuts (Manual) Lymphocytes # (Manual) Monocytes # (Manual) Toxic Vacuolation Platelet Estimate Large Platelets Plt Morphology Comment RBC Morphology Ovalocytes [place] Cells Smear Tech's Comments PT 15.6 H INR 1.3 H APTT aPTT Heparin Protocol VBG pH VBG pCO2 VBG pO2 VBG HCO3 VBG O2 Saturation VBG Base Excess Sodium 139 Potassium 3.2 L Chloride 97 Carbon Dioxide 33 H Anion Gap 12 BUN 8 L Creatinine 0.58 Estim Creat Clear Calc 93.0 Estimated GFR > 60 POC Glucose 122 H Random Glucose 129 H Lactic Acid Lactic Acid F/U @ 2Hr Calcium 7.7 L Magnesium 1.5 L Total Bilirubin 0.6 Direct Bilirubin 0.3 AST 16 ALT 12 Alkaline Phosphatase 73 D Ammonia Troponin I High Sens B-Natriuretic Peptide Total Protein 5.9 L Albumin 2.6 L Urine Color Urine Appearance Urine pH Ur Specific [place] Urine Protein Urine Glucose (UA) Urine Ketones Urine Blood Urine Nitrite Ur Leukocyte Esterase Urine RBC Urine WBC Ur Squamous Epith Cells Amorphous [place] Urine Bacteria RBC Casts Vancomycin Trough COVID-19 (ELLEN) COVID-19 Clin Com Hepatitis A IgM Ab Hep Bs Antigen Hep Bs Antibody Hep B Core Total Ab Hepatitis C Ab (EIA) Blood Type Antibody Screen 01/07/22 01/07/22 07:05 11:22 WBC RBC Hgb Hct MCV MCH MCHC RDW Plt Count MPV Immature Gran % (Auto) Neut % (Auto) Lymph % (Auto) [place] % (Auto) Eos % (Auto) Baso % (Auto) Lymph # (Auto) [place] # (Auto) Eos # (Auto) Baso # (Auto) Abs Immat Gran (auto) Absolute Neuts (auto) Absolute Nucleated RBC Nucleated RBC % (auto) Neutrophils % (Manual) Band Neutrophils % Lymphocytes % (Manual) Monocytes % (Manual) Abs Neuts (Manual) Lymphocytes # (Manual) Monocytes # (Manual) Toxic Vacuolation Platelet Estimate Large Platelets Plt Morphology Comment RBC Morphology Ovalocytes [place] Cells Smear Tech's Comments PT INR APTT aPTT Heparin Protocol VBG pH VBG pCO2 VBG pO2 VBG HCO3 VBG O2 Saturation VBG Base Excess Sodium Potassium Chloride Carbon Dioxide Anion Gap BUN Creatinine Estim Creat Clear Calc Estimated GFR POC Glucose 118 H 116 H Random Glucose Lactic Acid Lactic Acid F/U @ 2Hr Calcium Magnesium Total Bilirubin Direct Bilirubin AST ALT Alkaline Phosphatase Ammonia Troponin I High Sens B-Natriuretic Peptide Total Protein Albumin Urine Color Urine Appearance Urine pH Ur Specific [place] Urine Protein Urine Glucose (UA) Urine Ketones Urine Blood Urine Nitrite Ur Leukocyte Esterase Urine RBC Urine WBC Ur Squamous Epith Cells Amorphous Sediment Urine Bacteria RBC Casts Vancomycin Trough COVID-19 (ELLEN) COVID-19 Clin Com Hepatitis A IgM Ab Hep Bs Antigen Hep Bs Antibody Hep B Core Total Ab Hepatitis C Ab (EIA) Blood Type Antibody Screen Assessment and Plan Final Anesthetic Review Family History of Problems with Anesthesia: No History of Problems with Anesthesia: No ASA Class: III Final Preanesthetic Review: No Changes in Pt Med Stat, Meds/Allgs Chart Reviewed, Consent Obtained/Reviewed and Anes Risks/Benef Reviewed Patient Risk: Intermediate Anesthetic Plan Anesthetic Plan: GA Disposition: Standard PACU
--- NOTE | 2022-01-07 14:01 | PC.NURSE ---
repositioned two assist. performed alex care. incont urine. repositioned two assist with pillows.
--- NOTE | 2022-01-07 15:35 | W.PM.OPN ---
Operative Note Operative Note Date of Service: 01/07/22 Narrative: Description: Endoscopic retrograde cholangiopancreatography (ERCP) PROCEDURE: Endoscopic retrograde cholangiopancreatography with sphincterotomy, cholangiogram and removal of sludge and stones INDICATION FOR THE PROCEDURE: Patient with a history of gram neg bacteremia and cholecystitis with sludge and stones in the CBD on imaging. MEDICATIONS: General anesthesia, rectal indomethacin 100 mg, The risks of the procedure were made aware to the patient and consisted of medication reaction, bleeding, perforation, aspiration, and post ERCP pancreatitis. DESCRIPTION OF PROCEDURE: After informed consent and appropriate sedation, the duodenoscope was inserted into the oropharynx, down the esophagus, and into the stomach. The scope was then advanced through the pylorus to the ampulla. The ampulla had a normal appearance. The bile duct was cannulated in the first attempt and cholangiogram confirmed a dilated CBD with few filling defects in the distal CBD. A generous sphincterotomy was performed and a 12 mm sweeped with some sludge removed. An occlusion cholangiogram still confirmed filling defects,. A 3 cm balloon was then deployed but no stones came out. A 15 mm extraction was then used with some more debris coming out. Vigorous saline flushing was done and 2 green-black stones about 10-12 mm then exited the CBD> A repeat cholangiogram was negative for filling defects. A few cc of epinephrine were injected around the sphincterotomy site due to oozing of blood which the ceased. The stomach was then decompressed and the endoscope was withdrawn. FINDINGS: 1. dilated CBD with choledocholithiasis, s/p sphincterotomy and stone removal RECOMMENDATIONS: 1. Allow clears as tolerated, can advance diet tomorrow if feels well 2. Resume eliquis in 48 hours 3. reconsult surgery for cholecystectomy
--- NOTE | 2022-01-07 16:58 | P.PNIM_ITS ---
Subjective Subjective Date of Service: 01/08/22 Interval History: Resting comfortably NPO for ERCP, no acute events overnight remains afebrile, no nausea, no vomiting, denies abdominal pain. Review of Systems Review of Systems: Yes all other systems are reviewed and are negative Physical Exam Vital Signs: Vital Signs: Last Vital Signs Temp 98.6 F 01/07/22 15:59 Pulse 90 01/07/22 16:45 Resp 15 01/07/22 16:45 BP 127/75 01/07/22 16:45 Pulse Ox 97 01/07/22 16:45 O2 Del Method 01/07/22 16:45 O2 Flow Rate 2 01/07/22 16:45 Oxygen Flow Rate 4 12/25/21 13:05 BMI result Body Mass Index 26.8 Const: Other: General resting comfortably in no acute distress.? Neck? supple no JVD. CVS? regular rate rhythm, Respiratory lungs clear to auscultation, no respiratory distress, no wheeze, no rhonchi. Gastrointestinal abdomen soft, nontender, bowel sounds audible, scant bilious drainage in cholecystostomy tube, no guarding , no rigidity. Extremities no edema. Neuro nonfocal , moving all 4 extremity, speech clear. Skin no rash Objective Data Active Medications Acetaminophen (Acetaminophen 325 Mg Tablet) 650 mg PO Q6H PRN PRN Reason: Pain, Mild (Pain Scale 1-3) Acetaminophen (Acetaminophen Supp 650 Mg Supp.Rect) 650 mg TN Q6H PRN PRN Reason: Fever Last Admin: 12/25/21 20:42 Dose: 650 mg Documented By: AMBROSIO Albuterol Sulfate (Albuterol Sulfate 90 Mcg 8 Gm Inhaler) 2 puff INHALE Q6H PRN PRN Reason: Shortness Of Breath Or Wheezing Atorvastatin Calcium (Atorvastatin Calcium 10 Mg Tablet) 10 mg PO BEDTIME [facility] Last Admin: 01/06/22 21:48 Dose: 10 mg Documented By: KARSTEN Bisacodyl (Bisacodyl 10 Mg Supp.Rect) 10 mg TN DAILY PRN PRN Reason: Constipation Dextrose (Dextrose 50 % 25 Gm/50 Ml Syringe) 25 gm IVPUSH Q15M PRN; Protocol PRN Reason: per Hypoglycemia Standing Ord. Escitalopram Oxalate (Escitalopram Oxalate 10 Mg Tablet) 10 mg PO DAILY [facility] Last Admin: 01/07/22 08:07 Dose: Not Given Documented By: JACQUES Non-Admin Reason: NPO Fentanyl (Fentanyl Citrate/Pf 100 Mcg/2 Ml Vial) 25 mcg IVPUSH Q5M PRN; Protocol PRN Reason: Pain, Moderate (Pain Scale 4-6 Fentanyl (Fentanyl Citrate/Pf 100 Mcg/2 Ml Vial) 25 mcg IVPUSH Q5M PRN; Protocol PRN Reason: Pain, Moderate (Pain Scale 4-6 Furosemide (Furosemide 20 Mg Tablet) 20 mg PO DAILY [facility]; Protocol Last Admin: 01/07/22 08:07 Dose: Not Given Documented By: JACQUES Non-Admin Reason: NPO Glucose (Glucose Gel 15 Gm Gel..Gram.) 15 gm PO Q15M PRN; Protocol PRN Reason: per Hypoglycemia Standing Ord. Meropenem 1 gm/ Sodium (Chloride) 100 mls @ 200 mls/hr IV Q8H [facility] Last Admin: 01/07/22 16:15 Dose: 200 mls/hr Documented By: MARY Potassium Cl/Dextrose/Lact Ringer's () 20 meq in 1,000 mls @ 80 mls/hr IVCONT .[id number] [facility] Last Admin: 01/07/22 11:26 Dose: 80 mls/hr Documented By: JACQUES Insulin Human Lispro (Insulin Lispro 100 Unit/Ml 3 Ml Vial) 0 unit SUBCUT QIDACHS [facility]; Protocol Last Admin: 01/07/22 11:27 Dose: Not Given Documented By: JACQUES Non-Admin Reason: No Insulin Coverage Melatonin (Melatonin 3 Mg Tablet) 6 mg PO BEDTIME PRN PRN Reason: Insomnia Metoprolol Tartrate (Metoprolol Tartrate 100 Mg Tablet) 100 mg PO BID [facility]; Protocol Last Admin: 01/07/22 08:07 Dose: Not Given Documented By: JACQUES Non-Admin Reason: NPO Mirtazapine (Mirtazapine 7.5 Mg Tablet) 7.5 mg PO BEDTIME [facility] Last Admin: 01/06/22 21:48 Dose: 7.5 mg Documented By: KARSTEN Multivitamins/Vitamin C (Multivitamin Tablet) 1 tab PO DAILY [facility] Last Admin: 01/07/22 08:07 Dose: Not Given Documented By: JACQUES Non-Admin Reason: NPO Nystatin (Nystatin Cream 15 Gm Tube) 1 appl TOPICAL BID [facility]; Protocol Last Admin: 01/07/22 10:24 Dose: 1 appl Documented By: JACQUES Ondansetron HCl (Ondansetron Hcl 4 Mg/2 Ml Vial) 4 mg IVPUSH ONCE PRN PRN Reason: Nausea and Vomiting Ondansetron HCl (Ondansetron Hcl 4 Mg/2 Ml Vial) 4 mg IVPUSH ONCE PRN PRN Reason: Nausea and Vomiting Oxycodone HCl (Oxycodone Hcl Immed Release 5 Mg Tablet) 5 mg PO ONCE PRN PRN Reason: Pain, Severe (Pain Scale 7-10) Pharmacy Consult (Consult Rx Perform Med Rec) 1 each MISCELLANE ONCE PRN PRN Reason: Consult order Potassium Chloride (Potassium Chloride Packet 20 Meq Packet) 40 meq PO DAILY [facility] Last Admin: 01/07/22 08:08 Dose: Not Given Documented By: JACQUES Non-Admin Reason: NPO Pregabalin (Pregabalin 100 Mg Capsule) 100 mg PO TID [facility] Last Admin: 01/07/22 09:17 Dose: Not Given Documented By: JACQUES Non-Admin Reason: NPO Senna (Sennosides 8.6 Mg Tablet) 17.2 mg PO BEDTIME PRN PRN Reason: Constipation Senna (Sennosides 8.6 Mg Tablet) 17.2 mg PO DAILY PRN PRN Reason: Constipation Sodium Chloride (0.9 % Sodium Chloride Flush 3 Ml Syringe) 3 ml IVFLUSH QSHIFT [facility] Last Admin: 01/07/22 08:45 Dose: Not Given Documented By: JACQUES Non-Admin Reason: IV Running Trazodone HCl (Trazodone Hcl 50 Mg Tablet) 50 mg PO BEDTIME [facility] Last Admin: 01/06/22 21:47 Dose: 50 mg Documented By: KARSTEN Labs CBC & Chem 7: 01/08/22 07:01 01/08/22 07:01 Labs: Laboratory Results - last 24 hr 01/06/22 01/07/22 01/07/22 21:09 06:38 06:38 PT 15.6 H INR 1.3 H Anion Gap 12 Estim Creat Clear Calc 93.0 Estimated GFR > 60 POC Glucose 122 H Random Glucose 129 H Calcium 7.7 L Magnesium 1.5 L Total Bilirubin 0.6 Direct Bilirubin 0.3 AST 16 ALT 12 Alkaline Phosphatase 73 D Total Protein 5.9 L Albumin 2.6 L 01/07/22 01/07/22 07:05 11:22 PT INR Anion Gap Estim Creat Clear Calc Estimated GFR POC Glucose 118 H 116 H Random Glucose Calcium Magnesium Total Bilirubin Direct Bilirubin AST ALT Alkaline Phosphatase Total Protein Albumin Assessment and Plan (1) Acute cholecystitis due to biliary calculus: Status: Acute (2) Persistent atrial fibrillation: Status: Acute (3) Bacteremia due to Gram-negative bacteria: Status: Acute Plan 71-year-old female with a past medical history of hypertension, hyperlipidemia, diabetes, CAD, CHF, AFib, anxiety, depression, schizoaffective disorder, history of bilateral lower extremity DVT, asthma, osteoarthritis, dorsalgia, [facility] resident; presented to the hospital with a chief complaint of altered mental status.? Noted to have following Acute cholecystitis Denies abdominal pain, status post Cholecystostomy tube placed by IR 12/31, abdominal ultrasound 01/05 showed choledocholithiasis with increase caliber of the distal common bile duct, sludge and stones redemonstrated within the thick-walled gallbladder , case discussed with and Dr. Lane patient underwent ERCP this morning, underwent sphincterotomy and stone removal Will resume clear liquid diet and advanced as as tolerated, GI recommend to resume Eliquis in 48 hours and to re-consult surgery for cholecystectomy. Ecoli Bacteremia ESBL + Secondary to cholecystitis Seen by ID, on meropenem end date 01/13 midline placed 01/01 AFib with RVR Ventricular rate is stable, continue metoprolol 100 bid, dose increased this admission cardiology following xarelto held for ERCP Hypokalemia/hypo magnesemia Persistent low magnesium and potassium Will replace potassium and magnesium and Follow level at am Toxic metabolic encephalopathy.? secondary to bacteremia ,baseline confusion Hypernatremia. Resolved likely from hypovolemia CAP, Right lower lobe pneumonia Suspected aspiration.? continue meropenem speech therapist recommend ground diet with thin liquids with Aspiration precautions. Transaminitis Likely in setting of sepsis/cholecystitis LFTs back to normal ANABELL. Resolved Likely prerenal.? Avoid nephrotoxins.? History of HFpEF Continue Lasix History of diabetes. metformin, lantus on hold SSI, ada diet History of hypertension bp stable Continue metoprolol /Norvasc on hold History of anxiety/depression/schizoaffective disorder Continue home clonazepam/mirtazapine DVT prophylaxis:? Xarelto on hold will place on compression boots moves Code status:? Full Code.? Patient has MOLST form dispo - to return to [facility] with PICC to complete abx when medically stable Continue hospitalization for Gram-negative bacteremia requiring IV antibiotics and need possible cholecystectomy. Quality Stroke Does the patient have a stroke diagnosis?: No VTE Prior VTE?: No VTE Risk Level:: Medical - moderate - high VTE Device Contraindication: Treatment Not Indicated VTE Drug Contraindication: N/A - Med Ordered
[2022-01-07] MEDS: Mirtazapine 7.5 MG TABLET PO (21:22)
[2022-01-07] MEDS: Pregabalin 100 MG CAPSULE PO (21:23)
[2022-01-07] MEDS: Atorvastatin Calcium 10 MG TABLET PO (21:23)
[2022-01-07] MEDS: traZODone HCL 50 MG TABLET PO (21:23)
[2022-01-07] MEDS: Metoprolol Tartrate 100 MG TABLET PO (21:23)
[2022-01-07] MEDS: 0.9 % Sodium Chloride Flush 3 ML SYRINGE IVFLUSH (21:24)
[2022-01-07 22:15] LABS: Glucose, Whole Blood 120 mg/dL (60-115)
[2022-01-08] VITALS (9 sets, daily range): BP systolic 92–138; BP diastolic 58–94; PULSE 77–99; RESP 16–18; TEMP 36.2–37.3; O2SAT 92–94
[2022-01-08 07:25] LABS: Glucose, Whole Blood 137 mg/dL (60-115)
[2022-01-08 07:46] LABS: Hematocrit 29.9 % (37.0-47.0); Hemoglobin 9.8 g/dl (12.0-16.0); Mean Corpuscular HGB Conc 32.8 g/dl (31.0-35.0); Mean Corpuscular Volume 94.6 fL (80.0-98.0); Platelet Count 310 X10*3/uL (160-400); Red Blood Count 3.16 X10*6/uL (4.20-5.50); Red Cell Distribution Width 13.6 % (11.0-16.0); White Blood Count 9.8 X10*3/uL (4.8-10.8)
[2022-01-08 08:10] LABS: Anion Gap 11 (12-20); Blood Urea Nitrogen 8 mg/dL (9-16); Calcium 8.2 mg/dL (8.4-10.2); Carbon Dioxide 36 mmol/L (22-29); Chloride 95 mmol/L (96-108); Estimated Glomerular Filt Rate > 60; Glucose Random 131 mg/dL (60-115); Magnesium 1.7 mg/dL (1.6-2.6); Potassium 3.3 mmol/L (3.3-5.1); Sodium 139 mmol/L (135-145)
[2022-01-08] MEDS: Metoprolol Tartrate 100 MG TABLET PO ×2 (08:19→19:47)
[2022-01-08] MEDS: Furosemide 20 MG TABLET PO (08:19)
[2022-01-08] MEDS: Pregabalin 100 MG CAPSULE PO ×3 (08:19→19:47)
[2022-01-08] MEDS: Escitalopram Oxalate 10 MG TABLET PO (08:19)
[2022-01-08] MEDS: Potassium Chloride Packet 20 MEQ PACKET 40 MEQ PO (08:19)
[2022-01-08] MEDS: Multivitamin TABLET 1 TAB PO (08:19)
[2022-01-08] MEDS: Nystatin Cream 15 GM TUBE 1 APPL TOPICAL ×2 (08:20→19:47)
[2022-01-08 11:16] LABS: Glucose, Whole Blood 173 mg/dL (60-115)
[2022-01-08] MEDS: Insulin Lispro 100 UNIT/ML 3 ML VIAL SUBCUT (12:30)
--- NOTE | 2022-01-08 13:36 | HO.POSTANES ---
Post Anesthesia Evaluation Post Anesthesia Evaluation Vital Signs: Vital Signs Temp Pulse Resp BP Pulse Ox O2 Del Method 01/08/22 11:40 93 Room Air 01/08/22 11:39 97.9 F 80 18 118/61 93 Room Air 01/08/22 07:24 98.1 F 89 18 138/94 H 93 Room Air 01/08/22 07:24 93 Room Air 01/08/22 03:56 98.1 F 83 16 128/61 93 Room Air Anesthesia: General Endotracheal-GETA Mental Status: Awake Pain Control: Satisfactory Nausea/Vomiting: None Hydration: Adequate Anesthesia-Related Issues: No Anes. Related Issues
--- NOTE | 2022-01-08 14:04 | PC.NURSE ---
POC maintained, insulin administered as ordered. pt bathed this shift. call torres within reach. safety and fall precautions in place.
--- NOTE | 2022-01-08 14:26 | PM.PNGS ---
Subjective Subjective Date of Service: 01/08/22 Interval history: Answers simple questions Denies abdominal pain Had ERCP yesterday with stone removal from the CBD Physical Exam Vital Signs: Vital Signs: Last Vital Signs Temp 97.9 F 01/08/22 11:39 Pulse 80 01/08/22 11:39 Resp 18 01/08/22 11:39 BP 118/61 01/08/22 11:39 Pulse Ox 93 01/08/22 11:40 O2 Del Method 01/08/22 11:40 O2 Flow Rate 2 01/07/22 17:15 Oxygen Flow Rate 4 12/25/21 13:05 BMI result Body Mass Index 26.8 Const: General: comfortable and no acute distress Eyes: Other: Nonicteric GI: Other: Tube cholecystostomy in place Palpation (GI): Soft to palpation, not firm and nontender Objective Data Active Medications Acetaminophen (Acetaminophen 325 Mg Tablet) 650 mg PO Q6H PRN PRN Reason: Pain, Mild (Pain Scale 1-3) Acetaminophen (Acetaminophen Supp 650 Mg Supp.Rect) 650 mg [place] Q6H PRN PRN Reason: Fever Last Admin: 12/25/21 20:42 Dose: 650 mg Documented By: AMBROSIO Albuterol Sulfate (Albuterol Sulfate 90 Mcg 8 Gm Inhaler) 2 puff INHALE Q6H PRN PRN Reason: Shortness Of Breath Or Wheezing Atorvastatin Calcium (Atorvastatin Calcium 10 Mg Tablet) 10 mg PO BEDTIME [facility] Last Admin: 01/07/22 21:23 Dose: 10 mg Documented By: KARSTEN Bisacodyl (Bisacodyl 10 Mg Supp.Rect) 10 mg [place] DAILY PRN PRN Reason: Constipation Dextrose (Dextrose 50 % 25 Gm/50 Ml Syringe) 25 gm IVPUSH Q15M PRN; Protocol PRN Reason: per Hypoglycemia Standing Ord. Escitalopram Oxalate (Escitalopram Oxalate 10 Mg Tablet) 10 mg PO DAILY [facility] Last Admin: 01/08/22 08:19 Dose: 10 mg Documented By: ZAKIFA Fentanyl (Fentanyl Citrate/Pf 100 Mcg/2 Ml Vial) 25 mcg IVPUSH Q5M PRN; Protocol PRN Reason: Pain, Moderate (Pain Scale 4-6 Fentanyl (Fentanyl Citrate/Pf 100 Mcg/2 Ml Vial) 25 mcg IVPUSH Q5M PRN; Protocol PRN Reason: Pain, Moderate (Pain Scale 4-6 Glucose (Glucose Gel 15 Gm Gel..Gram.) 15 gm PO Q15M PRN; Protocol PRN Reason: per Hypoglycemia Standing Ord. Meropenem 1 gm/ Sodium (Chloride) 100 mls @ 200 mls/hr IV Q8H [facility] Last Infusion: 01/08/22 08:56 Dose: 0 mls/hr Documented By: BRIAN Insulin Human Lispro (Insulin Lispro 100 Unit/Ml 3 Ml Vial) 0 unit SUBCUT QIDACHS [facility]; Protocol Last Admin: 01/08/22 12:30 Dose: 2 unit Documented By: BRIAN Melatonin (Melatonin 3 Mg Tablet) 6 mg PO BEDTIME PRN PRN Reason: Insomnia Metoprolol Tartrate (Metoprolol Tartrate 100 Mg Tablet) 100 mg PO BID [facility]; Protocol Last Admin: 01/08/22 08:19 Dose: 100 mg Documented By: BRIAN Mirtazapine (Mirtazapine 7.5 Mg Tablet) 7.5 mg PO BEDTIME [facility] Last Admin: 01/07/22 21:22 Dose: 7.5 mg Documented By: KARSTEN Multivitamins/Vitamin C (Multivitamin Tablet) 1 tab PO DAILY [facility] Last Admin: 01/08/22 08:19 Dose: 1 tab Documented By: BRIAN Nystatin (Nystatin Cream 15 Gm Tube) 1 appl TOPICAL BID [facility]; Protocol Last Admin: 01/08/22 08:20 Dose: 1 appl Documented By: BRIAN Ondansetron HCl (Ondansetron Hcl 4 Mg/2 Ml Vial) 4 mg IVPUSH ONCE PRN PRN Reason: Nausea and Vomiting Ondansetron HCl (Ondansetron Hcl 4 Mg/2 Ml Vial) 4 mg IVPUSH ONCE PRN PRN Reason: Nausea and Vomiting Oxycodone HCl (Oxycodone Hcl Immed Release 5 Mg Tablet) 5 mg PO ONCE PRN PRN Reason: Pain, Severe (Pain Scale 7-10) Pharmacy Consult (Consult Rx Perform Med Rec) 1 each MISCELLANE ONCE PRN PRN Reason: Consult order Potassium Chloride (Potassium Chloride Packet 20 Meq Packet) 40 meq PO DAILY [facility] Last Admin: 01/08/22 08:19 Dose: 40 meq Documented By: HO.N-SOFFA Pregabalin (Pregabalin 100 Mg Capsule) 100 mg PO TID [facility] Last Admin: 01/08/22 08:19 Dose: 100 mg Documented By: PHILLIP-SOFFA Senna (Sennosides 8.6 Mg Tablet) 17.2 mg PO BEDTIME PRN PRN Reason: Constipation Senna (Sennosides 8.6 Mg Tablet) 17.2 mg PO DAILY PRN PRN Reason: Constipation Sodium Chloride (0.9 % Sodium Chloride Flush 3 Ml Syringe) 3 ml IVFLUSH QSHIFT [facility] Last Admin: 01/08/22 08:20 Dose: Not Given Documented By: BRIAN Non-Admin Reason: assessed Trazodone HCl (Trazodone Hcl 50 Mg Tablet) 50 mg PO BEDTIME [facility] Last Admin: 01/07/22 21:23 Dose: 50 mg Documented By: KARSTEN Labs CBC & Chem 7: 01/08/22 07:01 01/08/22 07:01 Labs: Laboratory Results - last 24 hr 01/07/22 01/08/22 01/08/22 22:12 07:01 07:01 MCV 94.6 MCH 31.0 MCHC 32.8 RDW 13.6 Plt Count 310 MPV 10.0 Absolute Nucleated RBC 0.000 Nucleated RBC % (auto) 0.0 Anion Gap 11 L Estim Creat Clear Calc 93.0 Estimated GFR > 60 POC Glucose 120 H Random Glucose 131 H Calcium 8.2 L D Magnesium 1.7 01/08/22 01/08/22 07:04 11:13 MCV MCH MCHC RDW Plt Count MPV Absolute Nucleated RBC Nucleated RBC % (auto) Anion Gap Estim Creat Clear Calc Estimated GFR POC Glucose 137 H 173 H Random Glucose Calcium Magnesium Procedures Date of Service Date of Service: 01/08/22 Progress Note: A&P Assessment and plan (1) Cholelithiasis: Status: Acute Assessment and Plan: Status post tube cholecystostomy Doing well Had ERCP for CBD stone Deemed to be at high perioperative risks for cholecystectomy Keep cholecystomy tube in place Diet as tolerated Time Spent With Patient Time: Total time spent is greater than 50% in coordination of care (as documented) at patient's floor/unit and/or counseling patient: Quality Stroke Does the patient have a stroke diagnosis?: No VTE Prior VTE?: No VTE Risk Level:: Medical - moderate - high VTE Device Contraindication: Treatment Not Indicated VTE Drug Contraindication: N/A - Med Ordered
[2022-01-08 16:04] LABS: Glucose, Whole Blood 113 mg/dL (60-115)
--- NOTE | 2022-01-08 16:33 | P.PNIM_ITS ---
Subjective Subjective Date of Service: 01/08/22 Interval History: Resting comfortably in bed offers no acute complaints said no to pain, no acute events overnight, vitals remained stable. Review of Systems Review of Systems: Yes all other systems are reviewed and are negative Physical Exam Vital Signs: Vital Signs: Last Vital Signs Temp 97.8 F 01/08/22 15:09 Pulse 90 01/08/22 15:09 Resp 18 01/08/22 15:09 BP 112/60 01/08/22 15:09 Pulse Ox 93 01/08/22 15:09 O2 Del Method 01/08/22 15:09 O2 Flow Rate 2 01/07/22 17:15 Oxygen Flow Rate 4 12/25/21 13:05 BMI result Body Mass Index 26.8 Const: Other: General resting comfortably in no acute distress.? Neck? supple no JVD. CVS? regular rate rhythm, Respiratory lungs clear to auscultation, no respiratory distress, no wheeze, no rhonchi. Gastrointestinal abdomen soft, nontender, bowel sounds audible, scant serosangui neous drainage in cholecystostomy tube, no guarding , no rigidity. Extremities no edema. Neuro nonfocal , moving all 4 extremity, speech clear. Skin no rash Objective Data Active Medications Acetaminophen (Acetaminophen 325 Mg Tablet) 650 mg PO Q6H PRN PRN Reason: Pain, Mild (Pain Scale 1-3) Acetaminophen (Acetaminophen Supp 650 Mg Supp.Rect) 650 mg [place] Q6H PRN PRN Reason: Fever Last Admin: 12/25/21 20:42 Dose: 650 mg Documented By: AMBROSIO Albuterol Sulfate (Albuterol Sulfate 90 Mcg 8 Gm Inhaler) 2 puff INHALE Q6H PRN PRN Reason: Shortness Of Breath Or Wheezing Atorvastatin Calcium (Atorvastatin Calcium 10 Mg Tablet) 10 mg PO BEDTIME [facility] Last Admin: 01/07/22 21:23 Dose: 10 mg Documented By: KARSTEN Bisacodyl (Bisacodyl 10 Mg Supp.Rect) 10 mg [place] DAILY PRN PRN Reason: Constipation Dextrose (Dextrose 50 % 25 Gm/50 Ml Syringe) 25 gm IVPUSH Q15M PRN; Protocol PRN Reason: per Hypoglycemia Standing Ord. Escitalopram Oxalate (Escitalopram Oxalate 10 Mg Tablet) 10 mg PO DAILY [facility] Last Admin: 01/08/22 08:19 Dose: 10 mg Documented By: BRIAN Fentanyl (Fentanyl Citrate/Pf 100 Mcg/2 Ml Vial) 25 mcg IVPUSH Q5M PRN; Protocol PRN Reason: Pain, Moderate (Pain Scale 4-6 Fentanyl (Fentanyl Citrate/Pf 100 Mcg/2 Ml Vial) 25 mcg IVPUSH Q5M PRN; Protocol PRN Reason: Pain, Moderate (Pain Scale 4-6 Glucose (Glucose Gel 15 Gm Gel..Gram.) 15 gm PO Q15M PRN; Protocol PRN Reason: per Hypoglycemia Standing Ord. Meropenem 1 gm/ Sodium (Chloride) 100 mls @ 200 mls/hr IV Q8H [facility] Last Infusion: 01/08/22 08:56 Dose: 0 mls/hr Documented By: BRIAN Insulin Human Lispro (Insulin Lispro 100 Unit/Ml 3 Ml Vial) 0 unit SUBCUT QIDACHS [facility]; Protocol Last Admin: 01/08/22 12:30 Dose: 2 unit Documented By: BRIAN Melatonin (Melatonin 3 Mg Tablet) 6 mg PO BEDTIME PRN PRN Reason: Insomnia Metoprolol Tartrate (Metoprolol Tartrate 100 Mg Tablet) 100 mg PO BID [facility]; Protocol Last Admin: 01/08/22 08:19 Dose: 100 mg Documented By: BRIAN Mirtazapine (Mirtazapine 7.5 Mg Tablet) 7.5 mg PO BEDTIME [facility] Last Admin: 01/07/22 21:22 Dose: 7.5 mg Documented By: KARSTEN Multivitamins/Vitamin C (Multivitamin Tablet) 1 tab PO DAILY [facility] Last Admin: 01/08/22 08:19 Dose: 1 tab Documented By: BRIAN Nystatin (Nystatin Cream 15 Gm Tube) 1 appl TOPICAL BID [facility]; Protocol Last Admin: 01/08/22 08:20 Dose: 1 appl Documented By: BRIAN Ondansetron HCl (Ondansetron Hcl 4 Mg/2 Ml Vial) 4 mg IVPUSH ONCE PRN PRN Reason: Nausea and Vomiting Ondansetron HCl (Ondansetron Hcl 4 Mg/2 Ml Vial) 4 mg IVPUSH ONCE PRN PRN Reason: Nausea and Vomiting Oxycodone HCl (Oxycodone Hcl Immed Release 5 Mg Tablet) 5 mg PO ONCE PRN PRN Reason: Pain, Severe (Pain Scale 7-10) Pharmacy Consult (Consult Rx Perform Med Rec) 1 each MISCELLANE ONCE PRN PRN Reason: Consult order Potassium Chloride (Potassium Chloride Packet 20 Meq Packet) 40 meq PO DAILY [facility] Last Admin: 01/08/22 08:19 Dose: 40 meq Documented By: BIRAN Pregabalin (Pregabalin 100 Mg Capsule) 100 mg PO TID [facility] Last Admin: 01/08/22 14:42 Dose: 100 mg Documented By: BRIAN Senna (Sennosides 8.6 Mg Tablet) 17.2 mg PO BEDTIME PRN PRN Reason: Constipation Senna (Sennosides 8.6 Mg Tablet) 17.2 mg PO DAILY PRN PRN Reason: Constipation Sodium Chloride (0.9 % Sodium Chloride Flush 3 Ml Syringe) 3 ml IVFLUSH QSHIFT [facility] Last Admin: 01/08/22 08:20 Dose: Not Given Documented By: BRIAN Non-Admin Reason: assessed Trazodone HCl (Trazodone Hcl 50 Mg Tablet) 50 mg PO BEDTIME [facility] Last Admin: 01/07/22 21:23 Dose: 50 mg Documented By: KARSTEN Labs CBC & Chem 7: 01/08/22 07:01 01/08/22 07:01 Labs: Laboratory Results - last 24 hr 01/07/22 01/08/22 01/08/22 22:12 07:01 07:01 MCV 94.6 MCH 31.0 MCHC 32.8 RDW 13.6 Plt Count 310 MPV 10.0 Absolute Nucleated RBC 0.000 Nucleated RBC % (auto) 0.0 Anion Gap 11 L Estim Creat Clear Calc 93.0 Estimated GFR > 60 POC Glucose 120 H Random Glucose 131 H Calcium 8.2 L D Magnesium 1.7 01/08/22 01/08/22 01/08/22 07:04 11:13 15:57 MCV MCH MCHC RDW Plt Count MPV Absolute Nucleated RBC Nucleated RBC % (auto) Anion Gap Estim Creat Clear Calc Estimated GFR POC Glucose 137 H 173 H 113 Random Glucose Calcium Magnesium Assessment and Plan (1) Acute cholecystitis due to biliary calculus: Status: Acute (2) Persistent atrial fibrillation: Status: Acute (3) Bacteremia due to Gram-negative bacteria: Status: Acute Plan 71-year-old female with a past medical history of hypertension, hyperlipidemia, diabetes, CAD, CHF, AFib, anxiety, depression, schizoaffective disorder, history of bilateral lower extremity DVT, asthma, osteoarthritis, dorsalgia, [facility] resident; presented to the hospital with a chief complaint of altered mental status.? Noted to have following Acute cholecystitis Denies abdominal pain, status post Cholecystostomy tube placed by IR 12/31, abdominal ultrasound 01/05 showed choledocholithiasis with increase caliber of the distal common bile duct, sludge and stones redemonstrated within the thick-walled gallbladder , underwent ERCP 01/[address] Mendez underwent sphincterotomy and stone removal Patient tolerating clear liquid diet therefore will advance to regular, will resume Eliquis in 48 hours Case discussed with Dr. Alex he recommend to continue cholecystostomy tube over the weekend and will reassess on Tuesday. Ecoli Bacteremia ESBL + Secondary to cholecystitis Seen by ID, on meropenem end date 01/13 midline placed 01/01 AFib with RVR Ventricular rate is stable, continue metoprolol 100 bid, dose increased this admission cardiology following Will resume xarelto 01/09 Hypokalemia/hypo magnesemia Potassium and magnesium normalized follow labs closely Toxic metabolic encephalopathy.? secondary to bacteremia ,baseline confusion Hypernatremia. Resolved likely from hypovolemia CAP, Right lower lobe pneumonia Suspected aspiration.? continue meropenem speech therapist recommend ground diet with thin liquids with Aspiration precautions. Transaminitis Likely in setting of sepsis/cholecystitis LFTs back to normal ANABELL. Resolved Likely prerenal.? Avoid nephrotoxins.? History of HFpEF Hold Lasix today since appear dry, follow clinical course History of diabetes. metformin, lantus on hold SSI, ada diet History of hypertension bp stable, Continue metoprolol /Norvasc and Cardizem discontinued History of anxiety/depression/schizoaffective disorder Continue home clonazepam/mirtazapine DVT prophylaxis:? Xarelto on hold will place on compression boots Code status:? Full Code.? Patient has MOLST form dispo - to return to [facility] with PICC to complete abx when medically stable Continue hospitalization for Gram-negative bacteremia requiring IV antibiotics and need possible cholecystectomy. Quality Stroke Does the patient have a stroke diagnosis?: No VTE Prior VTE?: No VTE Risk Level:: Medical - moderate - high VTE Device Contraindication: Treatment Not Indicated VTE Drug Contraindication: N/A - Med Ordered
[2022-01-08] MEDS: Atorvastatin Calcium 10 MG TABLET PO (19:47)
[2022-01-08] MEDS: Mirtazapine 7.5 MG TABLET PO (19:47)
[2022-01-08] MEDS: traZODone HCL 50 MG TABLET PO (19:47)
[2022-01-08] MEDS: 0.9 % Sodium Chloride Flush 3 ML SYRINGE IVFLUSH (19:47)
[2022-01-08 20:23] LABS: Glucose, Whole Blood 140 mg/dL (60-115)
[2022-01-09] VITALS (8 sets, daily range): BP systolic 115–136; BP diastolic 65–88; PULSE 63–88; RESP 12–18; TEMP 35.9–36.8; O2SAT 93–99
--- NOTE | 2022-01-09 05:58 | PC.NURSE ---
PT noted to have greenish brown urine, not sure if this is new, notified and passed on to oncoming RN.
[2022-01-09 07:41] LABS: Anion Gap 16 (12-20); Blood Urea Nitrogen 8 mg/dL (9-16); Calcium 7.8 mg/dL (8.4-10.2); Carbon Dioxide 28 mmol/L (22-29); Chloride 97 mmol/L (96-108); Estimated Glomerular Filt Rate > 60; Glucose Random 126 mg/dL (60-115); Potassium 3.9 mmol/L (3.3-5.1); Sodium 137 mmol/L (135-145)
[2022-01-09 08:08] LABS: Glucose, Whole Blood 109 mg/dL (60-115)
[2022-01-09] MEDS: Multivitamin TABLET 1 TAB PO (08:27)
[2022-01-09] MEDS: Escitalopram Oxalate 10 MG TABLET PO (08:27)
[2022-01-09] MEDS: Pregabalin 100 MG CAPSULE PO ×3 (08:27→20:09)
[2022-01-09] MEDS: Metoprolol Tartrate 100 MG TABLET PO ×2 (08:27→20:09)
[2022-01-09] MEDS: Nystatin Cream 15 GM TUBE 1 APPL TOPICAL ×2 (08:27→20:09)
[2022-01-09 11:54] LABS: Glucose, Whole Blood 120 mg/dL (60-115)
--- NOTE | 2022-01-09 13:55 | HO.PM.IMPN ---
Subjective Subjective Date of Service: 01/09/22 Interval History: Resting comfortably in bed, offers no acute complaints, no acute events overnight. Review of Systems Review of Systems: Yes all other systems are reviewed and are negative Physical Exam Vital Signs: Vital Signs: Last Vital Signs Temp 97.1 F 01/09/22 10:52 Pulse 85 01/09/22 10:52 Resp 12 01/09/22 10:52 BP 135/65 01/09/22 10:52 Pulse Ox 94 01/09/22 12:00 O2 Del Method 01/09/22 12:00 O2 Flow Rate 2 01/07/22 17:15 Oxygen Flow Rate 4 12/25/21 13:05 BMI result Body Mass Index 26.8 Const: Other: General resting comfortably in no acute distress.? Neck? supple no JVD. CVS? regular rate rhythm, Respiratory lungs clear to auscultation, no respiratory distress, no wheeze, no rhonchi. Gastrointestinal abdomen soft, nontender, bowel sounds audible, scant serosanguineous drainage in cholecystostomy tube, no guarding , no rigidity. Extremities no edema. Neuro nonfocal , moving all 4 extremity, speech clear. Skin no rash Objective Data Active Medications Acetaminophen (Acetaminophen 325 Mg Tablet) 650 mg PO Q6H PRN PRN Reason: Pain, Mild (Pain Scale 1-3) Acetaminophen (Acetaminophen Supp 650 Mg Supp.Rect) 650 mg [place] Q6H PRN PRN Reason: Fever Last Admin: 12/25/21 20:42 Dose: 650 mg Documented By: AMBROSIO Albuterol Sulfate (Albuterol Sulfate 90 Mcg 8 Gm Inhaler) 2 puff INHALE Q6H PRN PRN Reason: Shortness Of Breath Or Wheezing Atorvastatin Calcium (Atorvastatin Calcium 10 Mg Tablet) 10 mg PO BEDTIME [facility] Last Admin: 01/08/22 19:47 Dose: 10 mg Documented By: MORRINL Bisacodyl (Bisacodyl 10 Mg Supp.Rect) 10 mg [place] DAILY PRN PRN Reason: Constipation Dextrose (Dextrose 50 % 25 Gm/50 Ml Syringe) 25 gm IVPUSH Q15M PRN; Protocol PRN Reason: per Hypoglycemia Standing Ord. Escitalopram Oxalate (Escitalopram Oxalate 10 Mg Tablet) 10 mg PO DAILY [facility] Last Admin: 01/09/22 08:27 Dose: 10 mg Documented By: OLIMPIA Fentanyl (Fentanyl Citrate/Pf 100 Mcg/2 Ml Vial) 25 mcg IVPUSH Q5M PRN; Protocol PRN Reason: Pain, Moderate (Pain Scale 4-6 Fentanyl (Fentanyl Citrate/Pf 100 Mcg/2 Ml Vial) 25 mcg IVPUSH Q5M PRN; Protocol PRN Reason: Pain, Moderate (Pain Scale 4-6 Glucose (Glucose Gel 15 Gm Gel..Gram.) 15 gm PO Q15M PRN; Protocol PRN Reason: per Hypoglycemia Standing Ord. Meropenem 1 gm/ Sodium (Chloride) 100 mls @ 200 mls/hr IV Q8H [facility] Last Infusion: 01/09/22 10:12 Dose: 0 mls/hr Documented By: OLIMPIA Insulin Human Lispro (Insulin Lispro 100 Unit/Ml 3 Ml Vial) 0 unit SUBCUT QIDACHS [facility]; Protocol Last Admin: 01/09/22 11:41 Dose: Not Given Documented By: OLIMPIA Non-Admin Reason: No Insulin Coverage Melatonin (Melatonin 3 Mg Tablet) 6 mg PO BEDTIME PRN PRN Reason: Insomnia Metoprolol Tartrate (Metoprolol Tartrate 100 Mg Tablet) 100 mg PO BID [facility]; Protocol Last Admin: 01/09/22 08:27 Dose: 100 mg Documented By: OLIMPIA Mirtazapine (Mirtazapine 7.5 Mg Tablet) 7.5 mg PO BEDTIME [facility] Last Admin: 01/08/22 19:47 Dose: 7.5 mg Documented By: MORRINSunni Multivitamins/Vitamin C (Multivitamin Tablet) 1 tab PO DAILY [facility] Last Admin: 01/09/22 08:27 Dose: 1 tab Documented By: OLIMPIA Nystatin (Nystatin Cream 15 Gm Tube) 1 appl TOPICAL BID [facility]; Protocol Last Admin: 01/09/22 08:27 Dose: 1 appl Documented By: OLIMPIA Ondansetron HCl (Ondansetron Hcl 4 Mg/2 Ml Vial) 4 mg IVPUSH ONCE PRN PRN Reason: Nausea and Vomiting Ondansetron HCl (Ondansetron Hcl 4 Mg/2 Ml Vial) 4 mg IVPUSH ONCE PRN PRN Reason: Nausea and Vomiting Oxycodone HCl (Oxycodone Hcl Immed Release 5 Mg Tablet) 5 mg PO ONCE PRN PRN Reason: Pain, Severe (Pain Scale 7-10) Pharmacy Consult (Consult Rx Perform Med Rec) 1 each MISCELLANE ONCE PRN PRN Reason: Consult order Potassium Chloride (Potassium Chloride Packet 20 Meq Packet) 40 meq PO DAILY [facility] Last Admin: 01/09/22 08:34 Dose: Not Given Documented By: OLIMPIA Non-Admin Reason: Physician Held Med Pregabalin (Pregabalin 100 Mg Capsule) 100 mg PO TID [facility] Last Admin: 01/09/22 08:27 Dose: 100 mg Documented By: OLIMPIA Senna (Sennosides 8.6 Mg Tablet) 17.2 mg PO BEDTIME PRN PRN Reason: Constipation Senna (Sennosides 8.6 Mg Tablet) 17.2 mg PO DAILY PRN PRN Reason: Constipation Sodium Chloride (0.9 % Sodium Chloride Flush 3 Ml Syringe) 3 ml IVFLUSH QSHIFT [facility] Last Admin: 01/09/22 10:12 Dose: Not Given Documented By: OLIMPIA Non-Admin Reason: IV Running Trazodone HCl (Trazodone Hcl 50 Mg Tablet) 50 mg PO BEDTIME [facility] Last Admin: 01/08/22 19:47 Dose: 50 mg Documented By: KJ Labs CBC & Chem 7: 01/08/22 07:01 01/09/22 05:48 Labs: Laboratory Results - last 24 hr 01/08/22 01/08/22 01/09/22 15:57 20:18 05:48 Anion Gap 16 Estim Creat Clear Calc 93.0 Estimated GFR > 60 POC Glucose 113 140 H Random Glucose 126 H Calcium 7.8 L 01/09/22 01/09/22 08:00 10:51 Anion Gap Estim Creat Clear Calc Estimated GFR POC Glucose 109 120 H Random Glucose Calcium Assessment and Plan (1) Acute cholecystitis due to biliary calculus: Status: Acute (2) Persistent atrial fibrillation: Status: Acute (3) Bacteremia due to Gram-negative bacteria: Status: Acute Plan 71-year-old female with a past medical history of hypertension, hyperlipidemia, diabetes, CAD, CHF, AFib, anxiety, depression, schizoaffective disorder, history of bilateral lower extremity DVT, asthma, osteoarthritis, dorsalgia, residential resident; presented to the hospital with a chief complaint of altered mental status.? Noted to have following Acute cholecystitis Denies abdominal pain, status post Cholecystostomy tube placed by IR 12/31, abdominal ultrasound 01/05 showed choledocholithiasis with increase caliber of the distal common bile duct, sludge and stones redemonstrated within the thick-walled gallbladder , underwent ERCP 01/[address] Mendez underwent sphincterotomy and stone removal Patient tolerating regular diet, will resume xarelto Case discussed with Dr. Alex he recommend to continue cholecystostomy tube over the weekend and will reassess on Tuesday. Ecoli Bacteremia ESBL + Secondary to cholecystitis on meropenem end date 01/13 midline placed 01/01 AFib with RVR Ventricular rate is stable, continue metoprolol 100 bid, dose increased this admission cardiology following Will resume xarelto 01/09 Hypokalemia/hypo magnesemia Potassium and magnesium normalized follow labs closely Toxic metabolic encephalopathy.? secondary to bacteremia ,baseline confusion Hypernatremia. Resolved likely from hypovolemia CAP, Right lower lobe pneumonia Suspected aspiration.? continue meropenem speech therapist recommend ground diet with thin liquids with Aspiration precautions. Transaminitis Likely in setting of sepsis/cholecystitis LFTs back to normal , recheck LFTs at a.m. ANABELL. Resolved Likely prerenal.? Avoid nephrotoxins.? History of HFpEF Will resume Lasix from am ,follow clinical course History of diabetes. metformin, lantus on hold SSI, ada diet History of hypertension bp stable, Continue metoprolol /Norvasc and Cardizem discontinued History of anxiety/depression/schizoaffective disorder Continue home clonazepam/mirtazapine DVT prophylaxis:? Xarelto on hold will place on compression boots Code status:? Full Code.? Patient has MOLST form dispo - to return to [facility] with PICC to complete abx when medically stable Continue hospitalization for Gram-negative bacteremia requiring IV antibiotics and need possible cholecystectomy. Quality Stroke Does the patient have a stroke diagnosis?: No VTE Prior VTE?: No VTE Risk Level:: Medical - moderate - high VTE Device Contraindication: Treatment Not Indicated VTE Drug Contraindication: N/A - Med Ordered
[2022-01-09] MEDS: Rivaroxaban 20 MG TABLET PO (15:23)
[2022-01-09] MEDS: 0.9 % Sodium Chloride Flush 3 ML SYRINGE IVFLUSH ×2 (15:24→21:03)
[2022-01-09 16:31] LABS: Glucose, Whole Blood 134 mg/dL (60-115)
[2022-01-09] MEDS: Mirtazapine 7.5 MG TABLET PO (20:09)
[2022-01-09] MEDS: traZODone HCL 50 MG TABLET PO (20:09)
[2022-01-09] MEDS: Atorvastatin Calcium 10 MG TABLET PO (20:09)
[2022-01-09 20:26] LABS: Glucose, Whole Blood 135 mg/dL (60-115)
[2022-01-10 04:00] VITALS: BP 124/71; PULSE 90; RESP 18; TEMP 36.2; O2SAT 96
[2022-01-10 07:54] LABS: Glucose, Whole Blood 111 mg/dL (60-115)
[2022-01-10 08:00] VITALS: BP 125/69; PULSE 86; RESP 14; TEMP 36.2; O2SAT 97
[2022-01-10] MEDS: Escitalopram Oxalate 10 MG TABLET PO (08:03)
[2022-01-10] MEDS: Rivaroxaban 20 MG TABLET PO (08:03)
[2022-01-10] MEDS: Pregabalin 100 MG CAPSULE PO ×2 (08:03→21:32)
[2022-01-10] MEDS: Metoprolol Tartrate 100 MG TABLET PO ×2 (08:03→21:32)
[2022-01-10] MEDS: Multivitamin TABLET 1 TAB PO (08:03)
[2022-01-10] MEDS: Nystatin Cream 15 GM TUBE 1 APPL TOPICAL ×2 (10:49→21:33)
[2022-01-10 11:26] LABS: Glucose, Whole Blood 112 mg/dL (60-115)
[2022-01-10 11:28] VITALS: BP 113/56; PULSE 79; RESP 18; TEMP 36.5; O2SAT 95
[2022-01-10] MEDS: 0.9 % Sodium Chloride Flush 3 ML SYRINGE IVFLUSH ×2 (15:51→21:33)
--- NOTE | 2022-01-10 15:54 | P.PNIM_ITS ---
Subjective Subjective Date of Service: 01/10/22 Interval History: Not very communicated refused to take potassium supplement, tolerating diet no nausea no vomiting no complain of pain, no acute overnight events. Review of Systems Review of Systems: Yes all other systems are reviewed and are negative Physical Exam Vital Signs: Vital Signs: Last Vital Signs Temp 97.7 F 01/10/22 11:28 Pulse 79 01/10/22 11:28 Resp 18 01/10/22 11:28 BP 113/56 L 01/10/22 11:28 Pulse Ox 95 01/10/22 11:28 O2 Del Method 01/10/22 11:28 O2 Flow Rate 2 01/07/22 17:15 Oxygen Flow Rate 4 12/25/21 13:05 BMI result Body Mass Index 26.8 Const: Other: General resting co mfortably in no ac [place] distress, no e vidence of fluid o verload.? Neck? [place] no JVD. CVS? regular rate rhyth m, Respiratory zach gs clear to auscul tation, no respira tory distress, no wheeze, no rhonchi . Gastrointestinal abdomen soft, non tender, bowel soun ds audible, scant serosanguineous dr rosa in cholecys tostomy tube, no g uarding , no rigid ity. Extremities n o edema. Neuro non focal , moving all 4 extremity, spee ch clear. Skin no rash Objective Data Active Medications Acetaminophen (Acetaminophen 325 Mg Tablet) 650 mg PO Q6H PRN PRN Reason: Pain, Mild (Pain Scale 1-3) Acetaminophen (Acetaminophen Supp 650 Mg Supp.Rect) 650 mg [place] Q6H PRN PRN Reason: Fever Last Admin: 12/25/21 20:42 Dose: 650 mg Documented By: AMBROSIO Albuterol Sulfate (Albuterol Sulfate 90 Mcg 8 Gm Inhaler) 2 puff INHALE Q6H PRN PRN Reason: Shortness Of Breath Or Wheezing Atorvastatin Calcium (Atorvastatin Calcium 10 Mg Tablet) 10 mg PO BEDTIME [facility]ANELLE Last Admin: 01/09/22 20:09 Dose: 10 mg Documented By: MORRINL Bisacodyl (Bisacodyl 10 Mg Supp.Rect) 10 mg [place] DAILY PRN PRN Reason: Constipation Dextrose (Dextrose 50 % 25 Gm/50 Ml Syringe) 25 gm IVPUSH Q15M PRN; Protocol PRN Reason: per Hypoglycemia Standing Ord. Escitalopram Oxalate (Escitalopram Oxalate 10 Mg Tablet) 10 mg PO DAILY [facility] Last Admin: 01/10/22 08:03 Dose: 10 mg Documented By: OLIMPIA Fentanyl (Fentanyl Citrate/Pf 100 Mcg/2 Ml Vial) 25 mcg IVPUSH Q5M PRN; Protocol PRN Reason: Pain, Moderate (Pain Scale 4-6 Fentanyl (Fentanyl Citrate/Pf 100 Mcg/2 Ml Vial) 25 mcg IVPUSH Q5M PRN; Protocol PRN Reason: Pain, Moderate (Pain Scale 4-6 Glucose (Glucose Gel 15 Gm Gel..Gram.) 15 gm PO Q15M PRN; Protocol PRN Reason: per Hypoglycemia Standing Ord. Meropenem 1 gm/ Sodium (Chloride) 100 mls @ 200 mls/hr IV Q8H [facility] Last Admin: 01/10/22 15:51 Dose: 200 mls/hr Documented By: OLIMPIA Insulin Human Lispro (Insulin Lispro 100 Unit/Ml 3 Ml Vial) 0 unit SUBCUT QIDA [facility]; Protocol Last Admin: 01/10/22 11:28 Dose: Not Given Documented By: OLIMPIA Non-Admin Reason: No Insulin Coverage Metoprolol Tartrate (Metoprolol Tartrate 100 Mg Tablet) 100 mg PO BID [facility]; Protocol Last Admin: 01/10/22 08:03 Dose: 100 mg Documented By: OLIMPIA Mirtazapine (Mirtazapine 7.5 Mg Tablet) 7.5 mg PO BEDTIME [facility] Last Admin: 01/09/22 20:09 Dose: 7.5 mg Documented By: CHIOMARINSunni Multivitamins/Vitamin C (Multivitamin Tablet) 1 tab PO DAILY [facility] Last Admin: 01/10/22 08:03 Dose: 1 tab Documented By: OLIMPIA Nystatin (Nystatin Cream 15 Gm Tube) 1 appl TOPICAL BID [facility]; Protocol Last Admin: 01/10/22 10:49 Dose: 1 appl Documented By: OLIMPIA Ondansetron HCl (Ondansetron Hcl 4 Mg/2 Ml Vial) 4 mg IVPUSH ONCE PRN PRN Reason: Nausea and Vomiting Ondansetron HCl (Ondansetron Hcl 4 Mg/2 Ml Vial) 4 mg IVPUSH ONCE PRN PRN Reason: Nausea and Vomiting Pharmacy Consult (Consult Rx Perform Med Rec) 1 each MISCELLANE ONCE PRN PRN Reason: Consult order Potassium Chloride (Potassium Chloride Packet 20 Meq Packet) 20 meq PO DAILY [facility] Last Admin: 01/10/22 10:53 Dose: Not Given Documented By: OLIMPIA Non-Admin Reason: Patient Refused Pregabalin (Pregabalin 100 Mg Capsule) 100 mg PO TID [facility] Last Admin: 01/10/22 08:03 Dose: 100 mg Rivaroxaban (Rivaroxaban 20 Mg Tablet) 20 mg PO DAILY [facility] Last Admin: 01/10/22 08:03 Dose: 20 mg Documented By: OLIMPIA Senna (Sennosides 8.6 Mg Tablet) 17.2 mg PO BEDTIME PRN PRN Reason: Constipation Senna (Sennosides 8.6 Mg Tablet) 17.2 mg PO DAILY PRN PRN Reason: Constipation Sodium Chloride (0.9 % Sodium Chloride Flush 3 Ml Syringe) 3 ml IVFLUSH QSHIFT [facility] Last Admin: 01/10/22 15:51 Dose: 3 ml Documented By: OLIMPIA Trazodone HCl (Trazodone Hcl 50 Mg Tablet) 50 mg PO BEDTIME [facility] Last Admin: 01/09/22 20:09 Dose: 50 mg Documented By: CHIOMARINSunni Labs CBC & Chem 7: 01/08/22 07:01 01/09/22 05:48 Labs: Laboratory Results - last 24 hr 01/09/22 01/09/22 01/10/22 16:19 20:05 07:41 POC Glucose 134 H 135 H 111 01/10/22 11:17 POC Glucose 112 Assessment and Plan (1) Acute cholecystitis due to biliary calculus: Status: Acute (2) Persistent atrial fibrillation: Status: Acute (3) Bacteremia due to Gram-negative bacteria: Status: Acute Plan 71-year-old female with a past medical history of hypertension, hyperlipidemia, diabetes, CAD, CHF, AFib, anxiety, depression, schizoaffective disorder, history of bilateral lower extremity DVT, asthma, osteoarthritis, dorsalgia, care home resident; presented to the hospital with a chief complaint of altered mental status.? Noted to have following Acute cholecystitis No overnight issues of nausea vomiting,no abdominal pain, status post Cholecystostomy tube placed by IR 12/31, abdominal ultrasound 01/05 showed choledocholithiasis with increase caliber of the distal common bile duct, sludge and stones redemonstrated within the thick- walled gallbladder underwent ERCP 01/[address] Mendez had sphincterotomy and stone removal Patient tolerating regular diet, Case discussed with Dr. Alex he recommend to continue cholecystostomy tube over the weekend and surgery will reassess on Tuesday. Ecoli Bacteremia ESBL + Secondary to cholecystitis on meropenem end date 01/13 midline placed 01/01 AFib with RVR Ventricular rate is stable, continue metoprolol 100 bid, dose increased this admission cardiology following Continue xarelto Hypokalemia/hypo magnesemia Potassium and magnesium normalized follow labs closely , patient refusing potassium supplements Toxic metabolic encephalopathy.? secondary to bacteremia ,baseline confusion Hypernatremia. Resolved likely from hypovolemia CAP, Right lower lobe pneumonia Suspected aspiration.? continue meropenem speech therapist recommend ground diet with thin liquids with Aspiration precautions. Transaminitis Likely in setting of sepsis/cholecystitis LFTs back to normal , recheck LFTs at a.m. ANABELL. Resolved Likely prerenal.? Avoid nephrotoxins.? History of HFpEF Appears euvolemic Lasix ,follow clinical course History of diabetes. metformin, lantus on hold SSI, ada diet History of hypertension bp stable, Continue metoprolol Norvasc and Cardizem discontinued History of anxiety/depression/schizoaffective disorder Continue home clonazepam/mirtazapine DVT prophylaxis:? Xarelto Code status:? Full Code.? Patient has MOLST form dispo - to return to [facility] to complete abx when medically stable Continue hospitalization for Gram-negative bacteremia requiring IV antibiotics and need possible cholecystectomy waiting reassessment by general surgeon. Quality Stroke Does the patient have a stroke diagnosis?: No VTE Prior VTE?: No VTE Risk Level:: Medical - moderate - high VTE Device Contraindication: Treatment Not Indicated VTE Drug Contraindication: N/A - Med Ordered
[2022-01-10 16:00] VITALS: BP 137/57; PULSE 90; RESP 16; TEMP 36.4; O2SAT 92
[2022-01-10 16:41] LABS: Glucose, Whole Blood 138 mg/dL (60-115)
[2022-01-10 19:25] VITALS: BP 103/53; PULSE 80; RESP 16; TEMP 36; O2SAT 92
[2022-01-10 19:45] LABS: Glucose, Whole Blood 119 mg/dL (60-115)
[2022-01-10] MEDS: traZODone HCL 50 MG TABLET PO (21:32)
[2022-01-10] MEDS: Atorvastatin Calcium 10 MG TABLET PO (21:32)
[2022-01-10] MEDS: Mirtazapine 7.5 MG TABLET PO (21:32)
[2022-01-10 23:34] VITALS: BP 127/60; PULSE 83; RESP 16; TEMP 36.2; O2SAT 93
[2022-01-11 03:23] VITALS: BP 130/67; PULSE 94; RESP 16; TEMP 36.3; O2SAT 94
[2022-01-11 07:32] LABS: Glucose, Whole Blood 100 mg/dL (60-115)
[2022-01-11 08:00] VITALS: BP 146/78; PULSE 87; RESP 16; TEMP 36.2; O2SAT 92
[2022-01-11] MEDS: Potassium Chloride Packet 20 MEQ PACKET PO (08:09)
[2022-01-11] MEDS: Metoprolol Tartrate 100 MG TABLET PO ×2 (08:09→22:04)
[2022-01-11] MEDS: Escitalopram Oxalate 10 MG TABLET PO (08:10)
[2022-01-11] MEDS: Nystatin Cream 15 GM TUBE 1 APPL TOPICAL ×2 (08:10→22:05)
[2022-01-11] MEDS: Multivitamin TABLET 1 TAB PO (08:10)
[2022-01-11] MEDS: Pregabalin 100 MG CAPSULE PO ×3 (08:10→22:04)
[2022-01-11] MEDS: 0.9 % Sodium Chloride Flush 3 ML SYRINGE IVFLUSH ×3 (08:10→22:05)
[2022-01-11] MEDS: Rivaroxaban 20 MG TABLET PO (08:10)
[2022-01-11 11:24] LABS: Glucose, Whole Blood 112 mg/dL (60-115)
[2022-01-11 11:38] VITALS: BP 119/72; PULSE 83; RESP 16; TEMP 36.3; O2SAT 94
--- NOTE | 2022-01-11 12:52 | P.PNGS_ITS ---
Subjective Subjective Date of Service: 01/11/22 Interval history: Patient answers some questions Denies pain Says she is comfortable Tolerating diet Physical Exam Vital Signs: Vital Signs: Last Vital Signs Temp 97.4 F 01/11/22 11:38 Pulse 83 01/11/22 11:38 Resp 16 01/11/22 11:38 BP 119/72 01/11/22 11:38 Pulse Ox 94 01/11/22 11:38 O2 Del Method 01/11/22 11:38 O2 Flow Rate 2 01/07/22 17:15 Oxygen Flow Rate 4 12/25/21 13:05 BMI result Body Mass Index 26.8 Const: General: comfortable and no acute distress Resp: Effort & Inspection: normal respiratory effort Cardio: Rhythm: abnormal rhythm GI: Other: Tube cholecystostomy without much output Palpation (GI): Soft to palpation, not firm, nontender and no guarding Objective Data Active Medications Acetaminophen (Acetaminophen 325 Mg Tablet) 650 mg PO Q6H PRN PRN Reason: Pain, Mild (Pain Scale 1-3) Acetaminophen (Acetaminophen Supp 650 Mg Supp.Rect) 650 mg [place] Q6H PRN PRN Reason: Fever Last Admin: 12/25/21 20:42 Dose: 650 mg Documented By: AMBROSIO Albuterol Sulfate (Albuterol Sulfate 90 Mcg 8 Gm Inhaler) 2 puff INHALE Q6H PRN PRN Reason: Shortness Of Breath Or Wheezing Atorvastatin Calcium (Atorvastatin Calcium 10 Mg Tablet) 10 mg PO BEDTIME [facility] Last Admin: 01/10/22 21:32 Dose: 10 mg Documented By: CASTILKeyur Bisacodyl (Bisacodyl 10 Mg Supp.Rect) 10 mg [place] DAILY PRN PRN Reason: Constipation Dextrose (Dextrose 50 % 25 Gm/50 Ml Syringe) 25 gm IVPUSH Q15M PRN; Protocol PRN Reason: per Hypoglycemia Standing Ord. Escitalopram Oxalate (Escitalopram Oxalate 10 Mg Tablet) 10 mg PO DAILY [facility] Last Admin: 01/11/22 08:10 Dose: 10 mg Documented By: SIOBHAN Fentanyl (Fentanyl Citrate/Pf 100 Mcg/2 Ml Vial) 25 mcg IVPUSH Q5M PRN; Protocol PRN Reason: Pain, Moderate (Pain Scale 4-6 Glucose (Glucose Gel 15 Gm Gel..Gram.) 15 gm PO Q15M PRN; Protocol PRN Reason: per Hypoglycemia Standing Ord. Meropenem 1 gm/ Sodium (Chloride) 100 mls @ 200 mls/hr IV Q8H [facility] Last Infusion: 01/11/22 09:41 Dose: 0 mls/hr Documented By: SIOBHAN Insulin Human Lispro (Insulin Lispro 100 Unit/Ml 3 Ml Vial) 0 unit SUBCUT QIDACHS [facility]; Protocol Last Admin: 01/11/22 11:41 Dose: Not Given Documented By: SIOBHAN Non-Admin Reason: No Insulin Coverage Metoprolol Tartrate (Metoprolol Tartrate 100 Mg Tablet) 100 mg PO BID [facility]; Protocol Last Admin: 01/11/22 08:09 Dose: 100 mg Documented By: SIOBHAN Mirtazapine (Mirtazapine 7.5 Mg Tablet) 7.5 mg PO BEDTIME [facility] Last Admin: 01/10/22 21:32 Dose: 7.5 mg Documented By: CASTILKeyur Multivitamins/Vitamin C (Multivitamin Tablet) 1 tab PO DAILY [facility] Last Admin: 01/11/22 08:10 Dose: 1 tab Documented By: SIOBHAN Nystatin (Nystatin Cream 15 Gm Tube) 1 appl TOPICAL BID [facility]; Protocol Last Admin: 01/11/22 08:10 Dose: 1 appl Documented By: SIOBHNA Ondansetron HCl (Ondansetron Hcl 4 Mg/2 Ml Vial) 4 mg IVPUSH ONCE PRN PRN Reason: Nausea and Vomiting Ondansetron HCl (Ondansetron Hcl 4 Mg/2 Ml Vial) 4 mg IVPUSH ONCE PRN PRN Reason: Nausea and Vomiting Pharmacy Consult (Consult Rx Perform Med Rec) 1 each MISCELLANE ONCE PRN PRN Reason: Consult order Potassium Chloride (Potassium Chloride Packet 20 Meq Packet) 20 meq PO DAILY [facility] Last Admin: 01/11/22 08:09 Dose: 20 meq Documented By: SIOBHAN Pregabalin (Pregabalin 100 Mg Capsule) 100 mg PO TID [facility] Last Admin: 01/11/22 08:10 Dose: 100 mg Documented By: SIOBHAN Rivaroxaban (Rivaroxaban 20 Mg Tablet) 20 mg PO DAILY [facility] Last Admin: 01/11/22 08:10 Dose: 20 mg Documented By: SIOBHAN Senna (Sennosides 8.6 Mg Tablet) 17.2 mg PO BEDTIME PRN PRN Reason: Constipation Senna (Sennosides 8.6 Mg Tablet) 17.2 mg PO DAILY PRN PRN Reason: Constipation Sodium Chloride (0.9 % Sodium Chloride Flush 3 Ml Syringe) 3 ml IVFLUSH QSHIFT [facility] Last Admin: 01/11/22 08:10 Dose: 3 ml Documented By: SIOBHAN Trazodone HCl (Trazodone Hcl 50 Mg Tablet) 50 mg PO BEDTIME [facility] Last Admin: 01/10/22 21:32 Dose: 50 mg Documented By: NOEL Labs CBC & Chem 7: 01/08/22 07:01 01/09/22 05:48 Labs: Laboratory Results - last 24 hr 01/10/22 01/10/22 01/11/22 16:35 19:38 07:22 POC Glucose 138 H 119 H 100 01/11/22 11:14 POC Glucose 112 Procedures Date of Service Date of Service: 01/11/22 Progress Note: A&P Assessment and plan (1) Acute cholecystitis due to biliary calculus: Status: Acute Assessment and Plan: Status post cholecystostomy tube by IR Doing well Antibiotics Diet as tolerated Abdominal exam benign Deemed to be at high risk for cholecystectomy Plan to DC cholecystostomy tube prior to discharge Time Spent With Patient Time: Total time spent is greater than 50% in coordination of care (as documented) at patient's floor/unit and/or counseling patient: Quality Stroke Does the patient have a stroke diagnosis?: No VTE Prior VTE?: No VTE Risk Level:: Medical - moderate - high VTE Device Contraindication: Treatment Not Indicated VTE Drug Contraindication: N/A - Med Ordered
--- NOTE | 2022-01-11 13:11 | HO.PM.IMPN ---
Subjective Subjective Date of Service: 01/11/22 Interval History: Awake alert offers no acute complaints, denies pain, more communicative this morning, no acute events overnight. Review of Systems Review of Systems: Yes all other systems are reviewed and are negative Physical Exam Vital Signs: Vital Signs: Last Vital Signs Temp 97.4 F 01/11/22 11:38 Pulse 83 01/11/22 11:38 Resp 16 01/11/22 11:38 BP 119/72 01/11/22 11:38 Pulse Ox 94 01/11/22 11:38 O2 Del Method 01/11/22 11:38 O2 Flow Rate 2 01/07/22 17:15 Oxygen Flow Rate 4 12/25/21 13:05 BMI result Body Mass Index 26.8 Const: Other: General resting co mfortably in no ac samy distress.? Nec k? supple no JVD. CVS? regular rate rhythm, Respirator y lungs clear to a uscultation, dimin ished, no respirat ory distress, no w heeze, no rhonchi. Gastrointestinal abdomen soft, nont trina, bowel sound s audible, scant s erosanguineous daija inage in cholecyst ostomy tube, no gu arding , no rigidi ty. Extremities no edema. Neuro nonf ocal , moving all 4 extremity, speec h clear. Skin no r sofia Objective Data Active Medications Acetaminophen (Acetaminophen 325 Mg Tablet) 650 mg PO Q6H PRN PRN Reason: Pain, Mild (Pain Scale 1-3) Acetaminophen (Acetaminophen Supp 650 Mg Supp.Rect) 650 mg [place] Q6H PRN PRN Reason: Fever Last Admin: 12/25/21 20:42 Dose: 650 mg Documented By: AMBROSIO Albuterol Sulfate (Albuterol Sulfate 90 Mcg 8 Gm Inhaler) 2 puff INHALE Q6H PRN PRN Reason: Shortness Of Breath Or Wheezing Atorvastatin Calcium (Atorvastatin Calcium 10 Mg Tablet) 10 mg PO BEDTIME [facility] Last Admin: 01/10/22 21:32 Dose: 10 mg Documented By: NOEL Bisacodyl (Bisacodyl 10 Mg Supp.Rect) 10 mg [place] DAILY PRN PRN Reason: Constipation Dextrose (Dextrose 50 % 25 Gm/50 Ml Syringe) 25 gm IVPUSH Q15M PRN; Protocol PRN Reason: per Hypoglycemia Standing Ord. Escitalopram Oxalate (Escitalopram Oxalate 10 Mg Tablet) 10 mg PO DAILY [facility] Last Admin: 01/11/22 08:10 Dose: 10 mg Documented By: SIOBHAN Fentanyl (Fentanyl Citrate/Pf 100 Mcg/2 Ml Vial) 25 mcg IVPUSH Q5M PRN; Protocol PRN Reason: Pain, Moderate (Pain Scale 4-6 Glucose (Glucose Gel 15 Gm Gel..Gram.) 15 gm PO Q15M PRN; Protocol PRN Reason: per Hypoglycemia Standing Ord. Meropenem 1 gm/ Sodium (Chloride) 100 mls @ 200 mls/hr IV Q8H [facility] Last Infusion: 01/11/22 09:41 Dose: 0 mls/hr Documented By: SIOBHAN Insulin Human Lispro (Insulin Lispro 100 Unit/Ml 3 Ml Vial) 0 unit SUBCUT QIDACHS [facility]; Protocol Last Admin: 01/11/22 11:41 Dose: Not Given Documented By: SIOBHAN Non-Admin Reason: No Insulin Coverage Metoprolol Tartrate (Metoprolol Tartrate 100 Mg Tablet) 100 mg PO BID [facility]; Protocol Last Admin: 01/11/22 08:09 Dose: 100 mg Documented By: SIOBHAN Mirtazapine (Mirtazapine 7.5 Mg Tablet) 7.5 mg PO BEDTIME [facility] Last Admin: 01/10/22 21:32 Dose: 7.5 mg Documented By: NOEL Multivitamins/Vitamin C (Multivitamin Tablet) 1 tab PO DAILY [facility] Last Admin: 01/11/22 08:10 Dose: 1 tab Documented By: SIOBHAN Nystatin (Nystatin Cream 15 Gm Tube) 1 appl TOPICAL BID [facility]; Protocol Last Admin: 01/11/22 08:10 Dose: 1 appl Documented By: SIOBHAN Ondansetron HCl (Ondansetron Hcl 4 Mg/2 Ml Vial) 4 mg IVPUSH ONCE PRN PRN Reason: Nausea and Vomiting Ondansetron HCl (Ondansetron Hcl 4 Mg/2 Ml Vial) 4 mg IVPUSH ONCE PRN PRN Reason: Nausea and Vomiting Pharmacy Consult (Consult Rx Perform Med Rec) 1 each MISCELLANE ONCE PRN PRN Reason: Consult order Potassium Chloride (Potassium Chloride Packet 20 Meq Packet) 20 meq PO DAILY [facility] Last Admin: 01/11/22 08:09 Dose: 20 meq Documented By: SIOBHAN Pregabalin (Pregabalin 100 Mg Capsule) 100 mg PO TID [facility] Last Admin: 01/11/22 08:10 Dose: 100 mg Documented By: SIOBHAN Rivaroxaban (Rivaroxaban 20 Mg Tablet) 20 mg PO DAILY [facility] Last Admin: 01/11/22 08:10 Dose: 20 mg Documented By: SIOBHAN Senna (Sennosides 8.6 Mg Tablet) 17.2 mg PO BEDTIME PRN PRN Reason: Constipation Senna (Sennosides 8.6 Mg Tablet) 17.2 mg PO DAILY PRN PRN Reason: Constipation Sodium Chloride (0.9 % Sodium Chloride Flush 3 Ml Syringe) 3 ml IVFLUSH QSHIFT [facility] Last Admin: 01/11/22 08:10 Dose: 3 ml Documented By: SIOBHAN Trazodone HCl (Trazodone Hcl 50 Mg Tablet) 50 mg PO BEDTIME [facility] Last Admin: 01/10/22 21:32 Dose: 50 mg Documented By: NOEL Labs CBC & Chem 7: 01/08/22 07:01 01/09/22 05:48 Labs: Laboratory Results - last 24 hr 01/10/22 01/10/22 01/11/22 16:35 19:38 07:22 POC Glucose 138 H 119 H 100 01/11/22 11:14 POC Glucose 112 Assessment and Plan (1) Acute cholecystitis due to biliary calculus: Status: Acute (2) Persistent atrial fibrillation: Status: Acute (3) Bacteremia due to Gram-negative bacteria: Status: Acute Plan 71-year-old female with a past medical history of hypertension, hyperlipidemia, diabetes, CAD, CHF, AFib, anxiety, depression, schizoaffective disorder, history of bilateral lower extremity DVT, asthma, osteoarthritis, dorsalgia, senior care resident; presented to the hospital with a chief complaint of altered mental status.? Noted to have following Acute cholecystitis No overnight issues of nausea vomiting,no abdominal pain, status post Cholecystostomy tube placed by IR 12/31, abdominal ultrasound 01/05 showed choledocholithiasis with increase caliber of the distal common bile duct, sludge and stones redemonstrated within the thick-walled gallbladder underwent ERCP 01/[address] Mendez had sphincterotomy and stone removal Patient tolerating regular diet, Case discussed with Dr. Alex he will remove cholecystostomy tube at a.m. Ecoli Bacteremia ESBL + Secondary to cholecystitis on meropenem end date 01/13 midline placed 01/01 AFib with RVR Ventricular rate is stable, continue metoprolol 100 bid, dose increased this admission Continue xarelto Hypokalemia/hypo magnesemia Potassium and magnesium normalized follow labs closely Toxic metabolic encephalopathy.? secondary to bacteremia ,baseline confusion Hypernatremia. Resolved likely from hypovolemia CAP, Right lower lobe pneumonia Suspected aspiration.? continue meropenem speech therapist recommend ground diet with thin liquids with Aspiration precautions. Transaminitis Likely in setting of sepsis/cholecystitis LFTs back to normal , recheck LFTs at a.m. ANABELL. Resolved Likely prerenal.? Avoid nephrotoxins.? History of HFpEF Appears euvolemic , will start back on Lasix 20 mg/d ,follow clinical course History of diabetes. Stable blood sugars less than 150, metformin, lantus on hold ada diet , DC sliding scale History of hypertension bp stable, Continue metoprolol Norvasc and Cardizem discontinued History of anxiety/depression/schizoaffective disorder Continue home clonazepam/mirtazapine DVT prophylaxis:? Xarelto Code status:? Full Code.? Patient has MOLST form dispo - to return to [facility] to complete abx when medically stable Continue hospitalization for Gram-negative bacteremia requiring IV antibiotics and need removal of cholecystostomy tube by general surgeon. Quality Stroke Does the patient have a stroke diagnosis?: No VTE Prior VTE?: No VTE Risk Level:: Medical - moderate - high VTE Device Contraindication: Treatment Not Indicated VTE Drug Contraindication: N/A - Med Ordered
--- NOTE | 2022-01-11 14:06 | MHC.CM.PN ---
[facility] UPDATED IN [facility]. PLAN IS FOR PATIENT'S RETURN TO FACILITY. CURRENTLY AWAITING SURGICAL FOLLOW-UP
[2022-01-11 15:52] VITALS: BMI 26.8
--- NOTE | 2022-01-11 15:58 | MHC.CLN ---
NUTRITION DIET=REGULAR, NDD2. AVERAGE INTAKE X 3 DAYS=50%. DTI TO BILATERAL HEELS. ADDING ENSURE BID (700 KCALS, 40 G PROTEIN) TO PROMOTE WOUND HEALING.
[2022-01-11 16:00] VITALS: BP 159/93; PULSE 82; RESP 16; TEMP 36.2; O2SAT 92
[2022-01-11 19:20] VITALS: BP 117/54; PULSE 72; RESP 18; TEMP 37; O2SAT 93
[2022-01-11] MEDS: Mirtazapine 7.5 MG TABLET PO (22:04)
[2022-01-11] MEDS: traZODone HCL 50 MG TABLET PO (22:04)
[2022-01-11] MEDS: Atorvastatin Calcium 10 MG TABLET PO (22:04)
[2022-01-12] VITALS (8 sets, daily range): BP systolic 97–153; BP diastolic 56–82; PULSE 70–89; RESP 16–18; TEMP 36.3–36.8; O2SAT 92–95
[2022-01-12 07:11] LABS: Alanine Aminotransferase 11 U/L (0-31); Albumin Level 2.5 g/dL (3.5-5.0); Alkaline Phosphatase 68 U/L (39-117); Anion Gap 9 (12-20); Aspartate Amino Transferase 11 U/L (5-31); Bilirubin Direct 0.3 mg/dL (0.0-0.5); Bilirubin Total 0.6 mg/dL (0.0-1.0); Blood Urea Nitrogen 5 mg/dL (9-16); Calcium 7.8 mg/dL (8.4-10.2); Carbon Dioxide 35 mmol/L (22-29); Chloride 101 mmol/L (96-108); Creatinine Clr Calc Pharmacy 117.3; Estimated Glomerular Filt Rate > 60; Glucose Random 122 mg/dL (60-115); Potassium 3.2 mmol/L (3.3-5.1); Sodium 142 mmol/L (135-145); Total Protein 5.4 g/dL (6.5-8.0)
[2022-01-12 07:18] LABS: Estimated Average Glucose 120 mg/dL; Hemoglobin A1c % 5.8 %
[2022-01-12] MEDS: Escitalopram Oxalate 10 MG TABLET PO (07:41)
[2022-01-12] MEDS: Metoprolol Tartrate 100 MG TABLET PO ×2 (07:41→21:39)
[2022-01-12] MEDS: Potassium Chloride Packet 20 MEQ PACKET PO ×2 (07:41→15:45)
[2022-01-12] MEDS: Rivaroxaban 20 MG TABLET PO (07:41)
[2022-01-12] MEDS: 0.9 % Sodium Chloride Flush 3 ML SYRINGE IVFLUSH ×2 (07:41→15:39)
[2022-01-12] MEDS: Pregabalin 100 MG CAPSULE PO ×3 (07:41→21:39)
[2022-01-12] MEDS: Multivitamin TABLET 1 TAB PO (07:41)
[2022-01-12] MEDS: Nystatin Cream 15 GM TUBE 1 APPL TOPICAL ×2 (07:42→23:29)
[2022-01-12 07:46] LABS: Glucose, Whole Blood 121 mg/dL (60-115)
[2022-01-12] MEDS: Furosemide 40 MG TABLET PO (09:42)
--- NOTE | 2022-01-12 12:26 | MHC.CM.PN ---
PLAN IS TO RETURN TO [facility] TOMORROW (Tuesday01/13/22) FACILITY MADE AWARE VIA [employer].
--- NOTE | 2022-01-12 15:36 | P.PNIM_ITS ---
Subjective Subjective Date of Service: 01/12/22 Interval History: Patient awake alert, denies pain no other acute issues overnight vitals remained stable Review of Systems Review of Systems: Yes all other systems are reviewed and are negative Physical Exam Vital Signs: Vital Signs: Last Vital Signs Temp 97.4 F 01/12/22 11:09 Pulse 70 01/12/22 11:09 Resp 18 01/12/22 11:09 BP 125/65 01/12/22 11:09 Pulse Ox 92 01/12/22 11:09 O2 Del Method 01/12/22 11:09 O2 Flow Rate 2 01/07/22 17:15 Oxygen Flow Rate 4 12/25/21 13:05 BMI result Body Mass Index 26.8 Const: Other: General resting comfortably in no acute distress.? Neck? supple no JVD. CVS? regular rate rhythm, Respiratory lungs clear to auscultation, no respiratory distress, no wheeze, no rhonchi. Gastrointestinal abdomen soft, nontender, bowel sounds audible, scant drainage in cholecystostomy tube, no guarding , no rigidity. Extremities no edema. Neuro nonfocal , moving all 4 extremity, speech clear. Skin no rash Objective Data Active Medications Acetaminophen (Acetaminophen 325 Mg Tablet) 650 mg PO Q6H PRN PRN Reason: Pain, Mild (Pain Scale 1-3) Acetaminophen (Acetaminophen Supp 650 Mg Supp.Rect) 650 mg MI Q6H PRN PRN Reason: Fever Last Admin: 12/25/21 20:42 Dose: 650 mg Documented By: AMBROSIO Albuterol Sulfate (Albuterol Sulfate 90 Mcg 8 Gm Inhaler) 2 puff INHALE Q6H PRN PRN Reason: Shortness Of Breath Or Wheezing Atorvastatin Calcium (Atorvastatin Calcium 10 Mg Tablet) 10 mg PO BEDTIME REPLACED BY [facility] Last Admin: 01/11/22 22:04 Dose: 10 mg Documented By: TOMIILKeyur Bisacodyl (Bisacodyl 10 Mg Supp.Rect) 10 mg MI DAILY PRN PRN Reason: Constipation Escitalopram Oxalate (Escitalopram Oxalate 10 Mg Tablet) 10 mg PO DAILY REPLACED BY [facility] Last Admin: 01/12/22 07:41 Dose: 10 mg Documented By: NOEL Furosemide (Furosemide 40 Mg Tablet) 40 mg PO DAILY REPLACED BY [facility]; Protocol Last Admin: 01/12/22 09:42 Dose: 40 mg Documented By: SIOBHAN Meropenem 1 gm/ Sodium (Chloride) 100 mls @ 200 mls/hr IV Q8H REPLACED BY [facility] Last Infusion: 01/12/22 10:19 Dose: 0 mls/hr Documented By: SIOBHAN Metoprolol Tartrate (Metoprolol Tartrate 100 Mg Tablet) 100 mg PO BID REPLACED BY [facility]; Protocol Last Admin: 01/12/22 07:41 Dose: 100 mg Documented By: NOEL Mirtazapine (Mirtazapine 7.5 Mg Tablet) 7.5 mg PO BEDTIME REPLACED BY [facility] Last Admin: 01/11/22 22:04 Dose: 7.5 mg Documented By: NOEL Multivitamins/Vitamin C (Multivitamin Tablet) 1 tab PO DAILY REPLACED BY [facility] Last Admin: 01/12/22 07:41 Dose: 1 tab Documented By: NOEL Nystatin (Nystatin Cream 15 Gm Tube) 1 appl TOPICAL BID REPLACED BY [facility]; Protocol Last Admin: 01/12/22 07:42 Dose: 1 appl Documented By: NOEL Ondansetron HCl (Ondansetron Hcl 4 Mg/2 Ml Vial) 4 mg IVPUSH ONCE PRN PRN Reason: Nausea and Vomiting Ondansetron HCl (Ondansetron Hcl 4 Mg/2 Ml Vial) 4 mg IVPUSH ONCE PRN PRN Reason: Nausea and Vomiting Pharmacy Consult (Consult Rx Perform Med Rec) 1 each MISCELLANE ONCE PRN PRN Reason: Consult order Potassium Chloride (Potassium Chloride Packet 20 Meq Packet) 20 meq PO DAILY REPLACED BY [facility] Last Admin: 01/12/22 07:41 Dose: 20 meq Documented By: NOEL Pregabalin (Pregabalin 100 Mg Capsule) 100 mg PO TID REPLACED BY [facility] Last Admin: 01/12/22 07:41 Dose: 100 mg Documented By: NOEL Rivaroxaban (Rivaroxaban 20 Mg Tablet) 20 mg PO DAILY REPLACED BY [facility] Last Admin: 01/12/22 07:41 Dose: 20 mg Documented By: NOEL Senna (Sennosides 8.6 Mg Tablet) 17.2 mg PO BEDTIME PRN PRN Reason: Constipation Senna (Sennosides 8.6 Mg Tablet) 17.2 mg PO DAILY PRN PRN Reason: Constipation Sodium Chloride (0.9 % Sodium Chloride Flush 3 Ml Syringe) 3 ml IVFLUSH QSHIFT REPLACED BY [facility] Last Admin: 01/12/22 07:41 Dose: 3 ml Documented By: NOEL Trazodone HCl (Trazodone Hcl 50 Mg Tablet) 50 mg PO BEDTIME REPLACED BY [facility] Last Admin: 01/11/22 22:04 Dose: 50 mg Documented By: NOEL Labs CBC & Chem 7: 01/08/22 07:01 01/12/22 06:23 Labs: Laboratory Results - last 24 hr 01/12/22 01/12/22 01/12/22 06:23 06:23 07:11 Anion Gap 9 L Estim Creat Clear Calc 117.3 Estimated GFR > 60 POC Glucose 121 H Random Glucose 122 H Estimat Average Glucose 120 Hemoglobin A1c % 5.8 Calcium 7.8 L Total Bilirubin 0.6 Direct Bilirubin 0.3 AST 11 ALT 11 Alkaline Phosphatase 68 Total Protein 5.4 L Albumin 2.5 L Assessment and Plan (1) Acute cholecystitis due to biliary calculus: Status: Acute (2) Persistent atrial fibrillation: Status: Acute (3) Bacteremia due to Gram-negative bacteria: Status: Acute Plan 71-year-old female with a past medical history of hypertension, hyperlipidemia, diabetes, CAD, CHF, AFib, anxiety, depression, schizoaffective disorder, history of bilateral lower extremity DVT, asthma, osteoarthritis, dorsalgia, longterm resident; presented to the hospital with a chief complaint of altered mental status.? Noted to have following Acute cholecystitis No overnight issues of nausea vomiting,no abdominal pain, status post Cholecystostomy tube placed by IR 12/31, abdominal ultrasound 01/05 showed choledocholithiasis underwent ERCP 01/[address] Mendez had sphincterotomy and stone removal Patient tolerating regular diet, Case discussed with Dr. Alex he will remove cholecystostomy tube prior to discharge. Ecoli Bacteremia ESBL + Secondary to cholecystitis on meropenem end date 01/13 midline placed 01/01 AFib with RVR Ventricular rate is stable, continue metoprolol 100 bid, dose increased this admission Continue xarelto Hypokalemia/hypo magnesemia magnesium normalized follow labs closely , mild drop in potassium since patient declined po potassium, will replace and Toxic metabolic encephalopathy.? secondary to bacteremia ,baseline confusion Hypernatremia. Resolved likely from hypovolemia CAP, Right lower lobe pneumonia Suspected aspiration.? continue meropenem speech therapist recommend ground diet with thin liquids with Aspiration precautions. Transaminitis Likely in setting of sepsis/cholecystitis Repeat LFTs are normal ANABELL. Resolved Likely prerenal.? Avoid nephrotoxins.? History of HFpEF Appears euvolemic , resume Lasix 20 mg/d ,follow clinical course History of diabetes. Stable blood sugars less than 150, metformin, lantus on hold ada diet , DC sliding scale History of hypertension bp stable, Continue metoprolol Norvasc and Cardizem discontinued History of anxiety/depression/schizoaffective disorder Continue home clonazepam/mirtazapine DVT prophylaxis:? Xarelto Code status:? Full Code.? Patient has MOLST form dispo - to return to [facility] to complete abx when medically stable Continue hospitalization for Gram-negative bacteremia requiring IV antibiotics and need removal of cholecystostomy tube by general surgeon. Quality Stroke Does the patient have a stroke diagnosis?: No VTE Prior VTE?: No VTE Risk Level:: Medical - moderate - high VTE Device Contraindication: Treatment Not Indicated VTE Drug Contraindication: N/A - Med Ordered
[2022-01-12 16:16] LABS: Glucose, Whole Blood 179 mg/dL (60-115)
[2022-01-12 20:45] LABS: Glucose, Whole Blood 131 mg/dL (60-115)
[2022-01-12] MEDS: Mirtazapine 7.5 MG TABLET PO (21:39)
[2022-01-12] MEDS: traZODone HCL 50 MG TABLET PO (21:39)
[2022-01-12] MEDS: Atorvastatin Calcium 10 MG TABLET PO (21:39)
[2022-01-13] MEDS: 0.9 % Sodium Chloride Flush 3 ML SYRINGE IVFLUSH ×2 (01:07→08:30)
[2022-01-13 03:55] VITALS: BP 134/80; PULSE 89; RESP 18; TEMP 36.3; O2SAT 95
[2022-01-13 07:19] LABS: Glucose, Whole Blood 120 mg/dL (60-115)
[2022-01-13 07:39] LABS: Anion Gap 12 (12-20); Blood Urea Nitrogen 6 mg/dL (9-16); Calcium 7.8 mg/dL (8.4-10.2); Carbon Dioxide 34 mmol/L (22-29); Chloride 98 mmol/L (96-108); Creatinine Clr Calc Pharmacy 94.7; Estimated Glomerular Filt Rate > 60; Glucose Random 125 mg/dL (60-115); Sodium 141 mmol/L (135-145)
[2022-01-13 07:54] VITALS: BP 154/70; PULSE 84; RESP 18; TEMP 36.3; O2SAT 97
[2022-01-13] MEDS: Potassium Chloride Packet 20 MEQ PACKET 40 MEQ PO (08:30)
[2022-01-13] MEDS: Rivaroxaban 20 MG TABLET PO (08:31)
[2022-01-13] MEDS: Metoprolol Tartrate 100 MG TABLET PO (08:31)
[2022-01-13] MEDS: Escitalopram Oxalate 10 MG TABLET PO (08:31)
[2022-01-13] MEDS: Multivitamin TABLET 1 TAB PO (08:31)
[2022-01-13] MEDS: Nystatin Cream 15 GM TUBE 1 APPL TOPICAL (08:31)
[2022-01-13] MEDS: Pregabalin 100 MG CAPSULE PO ×2 (08:31→15:47)
[2022-01-13] MEDS: Furosemide 20 MG TABLET PO (08:31)
[2022-01-13 11:12] VITALS: BP 104/64; PULSE 80; RESP 18; TEMP 36.4; O2SAT 96
[2022-01-13 11:55] LABS: Glucose, Whole Blood 176 mg/dL (60-115)
--- NOTE | 2022-01-13 12:50 | PM.DS ---
DS: Providers Provider Date of Service: 01/13/22 Date of admission: 12/25/21 19:40 Primary care physician: Unknown Physician Consults: 12/25/21 19:39 Consult to General Surgery Routine Consulting Provider: Deon Cheng Reason for consultation: ?cholecystitis 12/25/21 19:45 Consult to Infectious Diseases Routine Consulting Provider: Uma San Reason for consultation: Sepsis 12/27/21 06:13 Consult to Cardiology Routine Consulting Provider: Edison Maddox Reason for consultation: afib RVR 12/30/21 08:35 Consult to Infectious Diseases Routine Consulting Provider: Uma San Reason for consultation: RESTRICTED ABX 01/05/22 13:07 Consult to Gastroenterology Routine Consulting Provider: Nadine Mendez Reason for consultation: CBD stone Has provider been notified: No 01/07/22 16:57 Consult to General Surgery Routine Consulting Provider: Koko Alex Reason for consultation: cholecystectomy Has provider been notified: No DS: Diagnosis Discharge Diagnosis (1) Acute cholecystitis due to biliary calculus: Status: Acute (2) Persistent atrial fibrillation: Status: Acute (3) Bacteremia due to Gram-negative bacteria: Status: Acute DS: Summary Hospital Course Hospital Course: history of presenting illness: Date of Service: 12/25/21 Chief Complaint: AMS 76-year-old female with a past medical history of hypertension, hyperlipidemia, diabetes, CAD, CHF, AFib, history of DVT on Xarelto, anxiety, schizoaffective disorder, asthma, osteoarthritis, chronic back pain, prison resident, baseline nonverbal presented to the hospital with a chief complaint of altered mental status.? Most of the history obtained from the records, staff.? Reportedly patient was noted to be more altered than her baseline; subsequently sent to the ER for further evaluation.? Review of all other systems is limited.? ER course:? Per ER team patient on presentation noted to have low-grade temperature, tachycardic; chest x-ray concerning for right lower lobe pneumonia suspected aspiration; patient was given IV Zosyn; on labs noted to have ANABELL; on CT scan concerning for gallbladder enlargement and on the labs noted to have elevated liver enzymes; suspected cholecystitis, discussed with Dr. Cheng who suggested HIDA scan.? Admitted to the hospital for further management Hospital course 71-year-old female with a past medical history of hypertension, hyperlipidemia, diabetes, CAD, CHF, AFib, anxiety, depression, schizoaffective disorder, history of bilateral lower extremity DVT, asthma, osteoarthritis, dorsalgia, prison resident; presented to the hospital with a chief complaint of altered mental status and admitted with a diagnosis of toxic metabolic encephalopathy, CT scan of the abdomen was concerning for gallbladder enlargement, noted to have elevated liver enzymes, patient was also in acute renal failure, and blood culture grew gram-negative rods final sensitivity showed E coli, patient was placed on broad-spectrum antibiotics and was seen in consultation by General surgery and due to multiple comorbidities including atrial fibrillation with RVR surgery recommended cholecystostomy tube, that was placed by IR on 12/31, subsequently LFTs normalize however repeat abdominal ultrasound on 01/05 showed choledocholithiasis therefore patient underwent ERCP 01/[address] eMndez had sphincterotomy and stone removal, currently patient is tolerating regular diet repeat LFTs remains normal patient has had no nausea vomiting or abdominal pain, no fever therefore being discharged home to rehab facility, cholecystostomy tube removed. In regard to Ecoli Bacteremia ESBL + likely due to cholecystitis patient finished course of IV meropenem times 14 days AFib with RVR Ventricular rate stabilized, dose of metoprolol increased to 100 bid, continue Xarelto Continue xarelto Hypokalemia/hypo magnesemia magnesium normalized follow labs closely , mild drop in potassium since patient declined po potassium, will replace and Toxic metabolic encephalopathy.? resolved was likely due to bacteremia Hypernatremia. Resolved likely from hypovolemia CAP, Right lower lobe pneumonia Suspected aspiration, finished course of meropenem as above,speech therapist recommend ground diet with thin liquids with Aspiration precautions. Transaminitis Likely in setting of sepsis/cholecystitis, LFTs normalized ANABELL. Resolved was likely pre renal History of HFpEF Appears euvolemic , continue Lasix 20 mg/d History of diabetes. resume metformin, continue ADA diet, hemoglobin A1c 5.8, DC Lantus monitor blood sugars once daily, since noted to have morning blood sugars around 120. History of hypertension bp stable, Continue metoprolol 100 mg twice daily.Norvasc and Cardizem discontinued History of anxiety/depression/schizoaffective disorder Continue home clonazepam and mirtazapine Time Spent with Patient Time attestation: Total time spent providing and/or coordinating discharge services: Discharge coordination time: Greater than 30 minutes Quality: Safe Use of Opioids Does Pt have an Active Cancer Diagnosis on the Problem List?: No Quality: Stroke Does the patient have a stroke diagnosis?: No Physical Exam Vital Signs: Vital Signs: Last Vital Signs Temp 97.6 F 01/13/22 11:12 Pulse 80 01/13/22 11:12 Resp 18 01/13/22 11:12 BP 104/64 01/13/22 11:12 Pulse Ox 96 01/13/22 11:12 O2 Del Method 01/13/22 11:12 O2 Flow Rate 2 01/07/22 17:15 Oxygen Flow Rate 4 12/25/21 13:05 BMI result Body Mass Index 26.8 Const: Other: General resting comfortably in no acute distress.? Neck? supple no JVD. CVS? regular rate rhythm, Respiratory lungs clear to auscultation, no respiratory distress, no wheeze, no rhonchi. Gastrointestinal abdomen soft, nontender, bowel sounds audible, no guarding , no rigidity. Extremities no edema. Neuro nonfocal , moving all 4 extremity, speech clear, answer yes or no or communicate in short sentences. Skin no rash DS: Data Data Completed and Pending Labs on day of discharge: Laboratory Results - last 24 hr 01/12/22 01/12/22 01/13/22 15:49 20:34 07:07 Sodium 141 Potassium 3.0 L Chloride 98 Carbon Dioxide 34 H Anion Gap 12 BUN 6 L Creatinine 0.57 Estim Creat Clear Calc 94.7 Estimated GFR > 60 POC Glucose 179 H 131 H Random Glucose 125 H Calcium 7.8 L 01/13/22 01/13/22 07:10 11:49 Sodium Potassium Chloride Carbon Dioxide Anion Gap BUN Creatinine Estim Creat Clear Calc Estimated GFR POC Glucose 120 H 176 H Random Glucose Calcium Discharge Plan Discharge Patient Disposition: Xfer SNF Discharge Diagnosis: acute cholecystitis/choledocholithiasis E coli bacteremia ESBL positive hypokalemia toxic metabolic encephalopathy hypernatremia right lower lobe community-acquired pneumonia acute kidney injury Referrals: [facility] [Outside] - 1 Day ([facility] ) Physician,Unknown J [Primary Care Provider] - 1 Week Discharge Medications: New metoprolol tartrate 100 mg Tablet 100 mg PO BID Qty: 60 0RF Protocol: Hold for SBP/HR < HOLD for SBP < : 90 HOLD for HR < : 60 Continued albuterol sulfate 90 mcg/actuation HFA aerosol inhaler 2 puff inhalation Q6H PRN (Reason: Shortness Of Breath Or Wheezing) metformin 500 mg tablet 500 mg PO BID Qty: 180 2RF pregabalin 100 mg capsule 100 mg PO TID 30 Days Qty: 90 3RF simvastatin 10 mg tablet 10 mg PO BEDTIME Qty: 90 3RF clonazepam 1 mg tablet 1 mg PO BID 30 Days Qty: 60 0RF escitalopram oxalate 10 mg tablet 10 mg PO DAILY 90 Days Qty: 90 0RF acetaminophen 325 mg Tablet 650 mg PO Q4H PRN (Reason: Fever Or Pain) bisacodyl 10 mg Suppository 10 mg HI DAILY PRN (Reason: Constipation) loperamide 2 mg Tablet 2 mg PO Q6H PRN (Reason: Loose Stool) multivitamin with minerals Tablet 1 tab PO DAILY Probiotic 5 billion cell Capsule, Sprinkle 1 cap PO BID Rx Instructions: ordered 10/16 until 10/30 sennosides [senna] 8.6 mg Tablet 17.2 mg PO DAILY PRN (Reason: Constipation) trazodone 50 mg tablet 50 mg PO BEDTIME potassium chloride 20 mEq tablet,ER particles/crystals 1 tab PO BID nystatin 100,000 unit/gram cream 1 appl TOPICAL BID Rx Instructions: affected areas on groin, inner thighs, around open areas on coccyx furosemide 20 mg tablet 1 tab PO DAILY mirtazapine 7.5 mg Tablet 7.5 mg PO BEDTIME Xarelto 20 mg tablet 1 tab PO DAILY Biofreeze (menthol) 4 % Gel 1 appl TOPICAL BID Rx Instructions: to both knees (DME) Pull ups Extra LArge See Rx Instructions .Route .MEDSUPPLY Qty: 120 11RF Rx Instructions: As directed Discontinued amlodipine 10 mg tablet 10 mg PO DAILY Qty: 90 0RF metoprolol succinate 25 mg tablet extended release 24 hr 25 mg PO DAILY Protocol: Hold for SBP/HR < HOLD for SBP < : 90 HOLD for HR < : 60 diltiazem HCl [Cardizem CD] 180 mg Capsule,Extended Release 24hr 180 mg PO BID Qty: 60 0RF Protocol: Hold for SBP/HR < HOLD for SBP < : 90 HOLD for HR < : 60 potassium chloride 10 mEq capsule, extended release 1 cap PO DAILY insulin glargine [Lantus Solostar U-100 Insulin] 100 unit/mL (3 mL) insulin pen 20 unit subcut DAILY Discharge Orders: Discharge Order (Routine); Ordered 01/13/22 Ordered By: Anthony Basilio Diet: Low fat, low cholesterol Activity on Discharge: As tolerated Stand Alone Forms: Patient Portal Discharge page Care Plan Goals: E coli sepsis resolved was likely due to cholecystitis, continue current diet, finished course of antibiotics in regard to diabetes mellitus follow blood sugars daily, Lantus discontinued since blood sugars 120 range at a.m. Health Concerns: take all medications as prescribed Plan of Treatment: follow-up with primary care physician in 1 week Assessment: per discharge summary
[2022-01-13 13:29] LABS: Potassium 3.6 mmol/L (3.3-5.1)
[2022-01-13 13:29] LABS: COVID-19 Test Negative (Negative)
--- NOTE | 2022-01-13 14:19 | P.PNGS_ITS ---
Subjective Subjective Date of Service: 01/13/22 Interval history: Does not seem to have any significant complaints abdominal pain Physical Exam Vital Signs: Vital Signs: Last Vital Signs Temp 97.6 F 01/13/22 11:12 Pulse 80 01/13/22 11:12 Resp 18 01/13/22 11:12 BP 104/64 01/13/22 11:12 Pulse Ox 96 01/13/22 11:12 O2 Del Method 01/13/22 11:12 O2 Flow Rate 2 01/07/22 17:15 Oxygen Flow Rate 4 12/25/21 13:05 BMI result Body Mass Index 26.8 Const: Other: Does not really communicate much verbally General: comfortable and no acute distress GI: Other: Cholecystostomy tube drain in place, very scanty bloody output Palpation (GI): Soft to palpation, not firm and nontender Objective Data Active Medications Acetaminophen (Acetaminophen 325 Mg Tablet) 650 mg PO Q6H PRN PRN Reason: Pain, Mild (Pain Scale 1-3) Acetaminophen (Acetaminophen Supp 650 Mg Supp.Rect) 650 mg RI Q6H PRN PRN Reason: Fever Last Admin: 12/25/21 20:42 Dose: 650 mg Documented By: AMBROSIO Albuterol Sulfate (Albuterol Sulfate 90 Mcg 8 Gm Inhaler) 2 puff INHALE Q6H PRN PRN Reason: Shortness Of Breath Or Wheezing Atorvastatin Calcium (Atorvastatin Calcium 10 Mg Tablet) 10 mg PO BEDTIME [facility] Last Admin: 01/12/22 21:39 Dose: 10 mg Documented By: MORRINL Bisacodyl (Bisacodyl 10 Mg Supp.Rect) 10 mg RI DAILY PRN PRN Reason: Constipation Escitalopram Oxalate (Escitalopram Oxalate 10 Mg Tablet) 10 mg PO DAILY [facility] Last Admin: 01/13/22 08:31 Dose: 10 mg Documented By: OLIMPIA Furosemide (Furosemide 20 Mg Tablet) 20 mg PO DAILY [facility]; Protocol Last Admin: 01/13/22 08:31 Dose: 20 mg Documented By: OLIMPIA Meropenem 1 gm/ Sodium (Chloride) 100 mls @ 200 mls/hr IV Q8H [facility] Last Infusion: 01/13/22 10:02 Dose: 0 mls/hr Documented By: OLIMPIA Metoprolol Tartrate (Metoprolol Tartrate 100 Mg Tablet) 100 mg PO BID [facility]; Protocol Last Admin: 01/13/22 08:31 Dose: 100 mg Documented By: OLIMPIA Mirtazapine (Mirtazapine 7.5 Mg Tablet) 7.5 mg PO BEDTIME [facility] Last Admin: 01/12/22 21:39 Dose: 7.5 mg Documented By: KJ Multivitamins/Vitamin C (Multivitamin Tablet) 1 tab PO DAILY [facility] Last Admin: 01/13/22 08:31 Dose: 1 tab Documented By: OLIMPIA Nystatin (Nystatin Cream 15 Gm Tube) 1 appl TOPICAL BID [facility]; Protocol Last Admin: 01/13/22 08:31 Dose: 1 appl Documented By: OLIMPIA Ondansetron HCl (Ondansetron Hcl 4 Mg/2 Ml Vial) 4 mg IVPUSH ONCE PRN PRN Reason: Nausea and Vomiting Ondansetron HCl (Ondansetron Hcl 4 Mg/2 Ml Vial) 4 mg IVPUSH ONCE PRN PRN Reason: Nausea and Vomiting Pharmacy Consult (Consult Rx Perform Med Rec) 1 each MISCELLANE ONCE PRN PRN Reason: Consult order Potassium Chloride (Potassium Chloride Packet 20 Meq Packet) 40 meq PO DAILY [facility] Last Admin: 01/13/22 08:30 Dose: 40 meq Documented By: OLIMPIA Pregabalin (Pregabalin 100 Mg Capsule) 100 mg PO TID [facility] Last Admin: 01/13/22 08:31 Dose: 100 mg Documented By: OLIMPIA Rivaroxaban (Rivaroxaban 20 Mg Tablet) 20 mg PO DAILY [facility] Last Admin: 01/13/22 08:31 Dose: 20 mg Documented By: OLIMPIA Senna (Sennosides 8.6 Mg Tablet) 17.2 mg PO BEDTIME PRN PRN Reason: Constipation Senna (Sennosides 8.6 Mg Tablet) 17.2 mg PO DAILY PRN PRN Reason: Constipation Sodium Chloride (0.9 % Sodium Chloride Flush 3 Ml Syringe) 3 ml IVFLUSH QSHIFT [facility] Last Admin: 01/13/22 08:30 Dose: 3 ml Documented By: OLIMPIA Trazodone HCl (Trazodone Hcl 50 Mg Tablet) 50 mg PO BEDTIME [facility] Last Admin: 01/12/22 21:39 Dose: 50 mg Documented By: HO.MORRINL Labs CBC & Chem 7: 01/08/22 07:01 01/13/22 13:01 Labs: Laboratory Results - last 24 hr 01/12/22 01/12/22 01/13/22 15:49 20:34 07:07 Anion Gap 12 Estim Creat Clear Calc 94.7 Estimated GFR > 60 POC Glucose 179 H 131 H Random Glucose 125 H Calcium 7.8 L COVID-19 (ELLEN) COVID-19 Clin Com 01/13/22 01/13/22 01/13/22 07:10 11:49 12:55 Anion Gap Estim Creat Clear Calc Estimated GFR POC Glucose 120 H 176 H Random Glucose Calcium COVID-19 (ELLEN) Negative COVID-19 Clin Com See Note Procedures Date of Service Date of Service: 01/13/22 Progress Note: A&P Assessment and plan (1) Acute cholecystitis due to biliary calculus: Status: Acute Assessment and Plan: Had tube cholecystomy in place No fever, no leukocytosis, no pain She is to be discharged today to snf I removed the tube cholecystostomy without any issues Time Spent With Patient Time: Total time spent is greater than 50% in coordination of care (as documented) at patient's floor/unit and/or counseling patient: Quality Stroke Does the patient have a stroke diagnosis?: No VTE Prior VTE?: No VTE Risk Level:: Medical - moderate - high VTE Device Contraindication: Treatment Not Indicated VTE Drug Contraindication: N/A - Med Ordered
--- NOTE | 2022-01-13 14:56 | MHC.CLN ---
F/U DIET=REGULAR, NDD2. INTAKE USUALLY GOOD WITH MOST MEALS GREATER THAN OR EQUAL TO 50%. DTI TO BILATERAL HEELS. ENSURE TID PROVIDES ADDITIONAL 1050 KCALS, 60 G PROTEIN. SUPPLEMENT TO PROMOTE WOUND HEALING. FOLLOW FOR SKIN AND INTAKE.
--- NOTE | 2022-01-13 14:59 | MHC.CM.PN ---
PATIENT TO RETURN TO [facility] TODAY FOR 1630 [facility]IA [facility]. SONLESLEE [phone] AWARE. RN AND UNIT AWARE. IMM 01/12 IN CHART
[2022-01-13 15:46] VITALS: BP 105/67; PULSE 80; RESP 15; TEMP 36.4; O2SAT 93
== END 2022-01-13 17:00 | disposition skilled nursing facility (03) | DRG 444 ==
LOC: HO.ED 16:36 → HO.EDOVER 19:51 → HO.S3 12-27 00:17 → HO.IMC 12-27 09:18 → HO.S3 01-08 16:09
PROVIDERS: Internal Medicine Gastroenterology; Nurse Practitioner Acute Care; Physician Assistant Medical; Radiology Diagnostic Radiology; Admitting Provider Hospitalist; Emergency Provider Emergency Medicine; Visit Provider Hospitalist
PROC: 0FC98ZZ Extirpation of Matter from Common Bile Duct, Via Natural or Artificial Opening Endoscopic (ICD-10-PCS; CPT 43260; principal; 2022-01-07 13:30)
DX: K80.62 Calculus of gallbladder and bile duct with acute cholecystitis without obstruction (principal); G92.8 Other toxic encephalopathy; J69.0 Pneumonitis due to inhalation of food and vomit; R78.81 Bacteremia; N17.9 Acute kidney failure, unspecified; E87.2 Acidosis; E87.0 Hyperosmolality and hypernatremia; I50.32 Chronic diastolic (congestive) heart failure; I48.19 Other persistent atrial fibrillation; Z16.12 Extended spectrum beta lactamase (ESBL) resistance; Z20.822 Contact with and (suspected) exposure to COVID-19; E78.5 Hyperlipidemia, unspecified; D72.829 Elevated white blood cell count, unspecified; I11.0 Hypertensive heart disease with heart failure; I25.10 Atherosclerotic heart disease of native coronary artery without angina pectoris; I48.91 Unspecified atrial fibrillation; F41.9 Anxiety disorder, unspecified; F32.A Depression, unspecified; F25.9 Schizoaffective disorder, unspecified; E87.6 Hypokalemia; B96.29 Other Escherichia coli [E. coli] as the cause of diseases classified elsewhere; E83.42 Hypomagnesemia; Z87.440 Personal history of urinary (tract) infections; Z86.718 Personal history of other venous thrombosis and embolism; Z88.0 Allergy status to penicillin; Z88.1 Allergy status to other antibiotic agents; Z88.2 Allergy status to sulfonamides; Z88.8 Allergy status to other drugs, medicaments and biological substances; Z79.01 Long term (current) use of anticoagulants; Z79.84 Long term (current) use of oral hypoglycemic drugs; Z79.899 Other long term (current) drug therapy
CPT/HCPCS: 36410; 36415; 49406; 71045; 74176; 76705; 78226; 80048; 80053; 80076; 80202; 81001; 82140; 82248; 82565; 82803; 82947; 83036; 83605; 83735; 83880; 84132; 84484; 85007; 85025; 85027; 85610; 85730; 86704; 86706; 86709; 86803; 86850; 86900; 86901; 87040; 87077; 87186; 87205; 87340; 87635; 92526; 92610; 93005; 96361; 96374; 99285; A9537; C1729; C1769; J0171; J1100; J1610; J2185; J2543; J3010; J3370; J3430; J3475; P9017; Q4186; Q9967

== ENCOUNTER 2022-08-12 18:17 | Inpatient (IN) | payer MEDICARE, MEDICAID, SELFPAY ==
--- NOTE | ~2022-08-12 | US_ITS ---
EXAMINATION: US ABDOMEN LIMITED CLINICAL INFORMATION: Elevated bilirubin COMPARISON: Previous abdominal ultrasound and abdominal pelvic CT December 2021 TECHNIQUE: Real-time imaging of the right upper quadrant abdominal viscera. Exam is limited FINDINGS: PANCREAS: Not well visualized due to bowel gas LIVER: Liver echotexture is normal. No focal liver lesion. No intrahepatic biliary duct dilatation. There may be pneumobilia. GALLBLADDER: Known cholecystostomy tube not well-visualized by ultrasound. The gallbladder is normal in size. There is sludge and small stones in the gallbladder. Gallbladder wall does not appear thickened measuring 0.3 cm. No pericholecystic fluid collection. COMMON BILE DUCT: Normal in caliber measuring 0.4 - 0.6 cm in diameter. RIGHT KIDNEY: Normal. No hydronephrosis. No renal calculi or focal parenchymal lesions. The kidney measures 10 cm in maximum dimension. FREE FLUID: None. US/US abdomen limited IMPRESSION: Limited exam. Known cholecystostomy tube is not visualized. Gallstones and sludge in the gallbladder.
--- NOTE | ~2022-08-12 | CT_ITS ---
EXAMINATION: CT CHEST WITHOUT CONTRAST CLINICAL INFORMATION: Shortness of breath COMPARISON: Previous chest x-ray from earlier the same day TECHNIQUE: Multidetector volumetric CT imaging of the chest was done. Axial MIP volume rendering provided. Sagittal and coronal reformatted images were obtained. This CT examination was performed using dose optimization techniques as appropriate, variously including the following: *Automated exposure control *Adjustment of mA and/or kV according to patient size (this includes techniques or standardized protocols for targeted exams where dose is matched to indication/reason for exam; i.e. extremities or head) *Use of iterative reconstruction technique DLP: 351 mGy-cm FINDINGS: LUNGS: There is subsegmental atelectasis at the right lung base in the right middle and right lower lobes. The lungs are otherwise clear. MEDIASTINUM: The heart is enlarged. There is a small pericardial effusion. The thoracic aorta is normal in caliber. There are small mediastinal lymph nodes. CORONARY ARTERY CALCIFICATION: Mild PLEURA: Tiny right pleural effusion. No left pleural effusion. No pneumothorax. Elevated right hemidiaphragm. AXILLA: No lymphadenopathy. UPPER ABDOMEN: There may pneumobilia in the liver. OSSEOUS STRUCTURES: Degenerative changes of the spine. CT/CT chest wo IV con IMPRESSION: Elevated right hemidiaphragm. Minimal atelectasis at the right lung base in the right middle and lower lobes. Tiny right pleural effusion. Enlarged heart and small pericardial effusion. Fleischner guidelines were followed.
--- NOTE | ~2022-08-12 | XR_ITS ---
EXAMINATION: XR CHEST CLINICAL INFORMATION: Acute mental status change. Fever and chest tightness COMPARISON: Previous chest x-ray most recent December 2021 TECHNIQUE: Frontal view of the chest was obtained. FINDINGS: The cardiac and mediastinal contours are stable. There is stable elevation of the right hemidiaphragm. There is right perihilar and right lung base atelectasis or small infiltrate. The left lung is clear. There may be a small left pleural effusion. There are degenerative changes of the spine. XR/XR chest 1V IMPRESSION: Question right base atelectasis or small infiltrate and small left pleural effusion.
--- NOTE | ~2022-08-12 | CT_ITS ---
EXAMINATION: CT ABDOMEN AND PELVIS WITHOUT CONTRAST CLINICAL INFORMATION: Abnormal ultrasound COMPARISON: Ultrasound 08/12/2022 TECHNIQUE: Multidetector volumetric imaging was performed from the superior aspect of the liver through the pubic symphysis. Sagittal and coronal reformatted images were obtained on the technologist's workstation. This CT examination was performed using dose optimization techniques as appropriate, variously including the following: *Automated exposure control *Adjustment of mA and/or kV according to patient size (this includes techniques or standardized protocols for targeted exams where dose is matched to indication/reason for exam; i.e. extremities or head) *Use of iterative reconstruction technique DLP: 1215 mGy-cm FINDINGS: LUNG BASES: Bilateral dependent opacities suggesting atelectasis. LIVER, GALLBLADDER, AND BILIARY TREE: The liver is normal in size, shape, and attenuation. Small amount of gas in the liver is favored to represent pneumobilia. No focal hepatic lesion or biliary ductal dilatation is identified. Gallstones are identified, without significant surrounding inflammation. No percutaneous cholecystostomy tube is present. PANCREAS: Unremarkable. SPLEEN: Unremarkable. ADRENAL GLANDS: Unremarkable. KIDNEYS AND URETERS: Mildly dilated left renal pelvis. No obstructing calculus seen bilaterally. Nonspecific mild bilateral perinephric stranding. BLADDER: Unremarkable. GASTROINTESTINAL TRACT: No evidence of bowel obstruction or significant wall thickening. The appendix is unremarkable. No free fluid or free air is seen. ABDOMINAL WALL: No significant hernia is appreciated. LYMPH NODES: Normal. VASCULAR: Moderate atherosclerotic calcifications. PELVIC VISCERA: Unremarkable. OSSEOUS STRUCTURES: Neck or degenerative CT/CT abdomen pelvis wo IV con IMPRESSION: 1. Mildly dilated left renal pelvis without obstructing calculus. 2. Cholelithiasis. 3. Small amount of gas in the liver is favored to represent pneumobilia.
--- NOTE | 2022-08-12 18:24 | ECG_ITS ---
Test Reason : SOB Blood Pressure : / mmHG Vent. Rate : 070 BPM Atrial Rate : 084 BPM P-R Int : 000 ms QRS Dur : 092 ms QT Int : 376 ms P-R-T Axes : 000 -17 051 degrees QTc Int : 406 ms Probable atrial flutter with controlled rate Septal infarct , age undetermined Abnormal ECG When compared with ECG of 25-DEC-2021 13:43, Septal infarct is now Present Nonspecific T wave abnormality, improved in Anterolateral leads Referred By: Estephania Shaver Electronically Signed By:KEN MARTINEZ
[2022-08-12 18:31] VITALS: BP 127/64; BP 129/77; PULSE 108; PULSE 87; RESP 30; TEMP 38.8; O2SAT 96; O2SAT 99; BMI 27.8
--- NOTE | 2022-08-12 18:35 | MHC.EDTECH ---
pt came via [facility] ,patient was hooked up to electronic device monitor ,vitals sign taken ,ekg done ,covid swab collected ,blood drawn ,including blood cultures and lactic acid all of which sent to lab ,patient was soiled care given linen change ,patient resting quietly in bed .
--- NOTE | 2022-08-12 18:45 | ED.GENADULT ---
HPI - General Adult General Chief complaint: General Medical Stated complaint: hypoxia, lethargy Time Seen by Provider: 08/12/22 18:36 Source: EMS Mode of arrival: EMS Limitations: altered mental status History of Present Illness HPI narrative: This is a 76-year-old female history of PE anticoagulated on Xarelto, schizoaffective disorder, arthrosclerotic heart disease, asthma, osteoarthritis, hypokalemia, type 2 diabetes, hyperlipidemia, depression anxiety, hypertensive heart disease with heart failure, paroxysmal atrial fibrillation, CHF presenting to the emergency department from half-way facility with increasing lethargy, hypoxia, patient was noted to be saturating 80% on room air, patient does not wear oxygen at half-way facility. Patient lethargic, unable to answer my questions upon arrival. Related Data Home Medications Medication Instructions Recorded Confirmed albuterol sulfate 90 mcg/actuation 2 puff inhalation Q6H PRN 06/18/20 08/12/22 aerosol inhaler Shortness Of Breath Or Wheezing Lactobacil.acidophilus-Bifido.animalis 1 cap PO BID 10/17/21 08/12/22 5 billion cell sprinkle capsule (Probiotic) acetaminophen 325 mg tablet 650 mg PO Q4H PRN Fever Or Pain 10/17/21 08/12/22 bisacodyl 10 mg rectal suppository 10 mg [place] DAILY PRN Constipation 10/17/21 08/12/22 loperamide 2 mg tablet 2 mg PO Q6H PRN Loose Stool 10/17/21 08/12/22 multivitamin with minerals 1 tab PO DAILY 10/17/21 08/12/22 sennosides 8.6 mg tablet (senna) 17.2 mg PO DAILY PRN Constipation 10/17/21 08/12/22 trazodone 50 mg tablet 50 mg PO BEDTIME 10/17/21 08/12/22 furosemide 20 mg tablet 1 tab PO DAILY 12/25/21 08/12/22 menthol 4 % topical gel (Biofreeze 1 appl topical BID 12/25/21 08/12/22 (menthol)) mirtazapine 7.5 mg tablet 7.5 mg PO BEDTIME 12/25/21 08/12/22 nystatin 100,000 unit/gram topical 1 appl topical BID 12/25/21 08/12/22 cream potassium chloride 20 mEq 1 tab PO BID 12/25/21 08/12/22 tablet,extended release(part/cryst) rivaroxaban 20 mg tablet (Xarelto) 1 tab PO DAILY 12/25/21 08/12/22 insulin glargine 100 unit/mL (3 20 unit subcut BEDTIME 08/12/22 08/12/22 mL) subcutaneous pen (Lantus Solostar U-100 Insulin) metoprolol tartrate 50 mg tablet 50 mg PO BID 08/12/22 08/12/22 sodium phosphates 19 gram-7 118 ml [place] DAILY PRN Constipation 08/12/22 08/12/22 gram/118 mL enema (Fleet Enema) Previous Rx's Medication Instructions Recorded Pull ups Extra LArge #120 ea 02/12/21 metformin 500 mg tablet 500 mg PO BID #180 tabs 04/01/21 pregabalin 100 mg capsule 100 mg PO TID 30 days #90 caps 08/03/21 simvastatin 10 mg tablet 10 mg PO BEDTIME #90 tabs 08/27/21 clonazepam 1 mg tablet 1 mg PO BID 30 days #60 tabs 09/24/21 escitalopram oxalate 10 mg tablet 10 mg PO DAILY 90 days #90 tabs 09/24/21 Allergies Allergy/AdvReac Type Severity Reaction Status Date / Time Iodinated Contrast Media Allergy Severe THROAT Verified 12/29/21 09:41 [IV Dye, Iodine Containing CLOSES Contrast ] UP/SWELLIN iodine [IODINE] Allergy Severe ANAPHYLAXIS Verified 12/29/21 09:41 sulfamethoxazole Allergy Intermediate rash face Verified 10/17/21 10:17 [From Bactrim] trimethoprim [From Bactrim] Allergy Intermediate rash face Verified 10/17/21 10:17 quetiapine [From SEROQUEL] Allergy Unknown SWELLING Verified 10/17/21 10:17 apixaban [From Eliquis] AdvReac Intermediate Diarrhea Verified 10/17/21 10:17 amoxicillin [Augmentin] AdvReac Unknown Diarrhea Verified 12/29/21 09:45 clavulanic acid [Augmentin] AdvReac Unknown Diarrhea Verified 12/29/21 09:45 lisinopril [LISINOPRIL] AdvReac Unknown Cough Verified 12/29/21 09:45 prednisone [PREDNISONE] AdvReac Unknown INCREASE Verified 12/29/21 09:41 BLOOD PRESSURE Review of Systems Review of Systems: Yes Unobtainable due to mental status PMFSH Past Medical History Attestation statement: The following information was validated with the patient. Source: old records reviewed and nursing notes reviewed Medical History Afib Bacteremia due to Gram-negative bacteria DVT, bilateral lower limbs Hypercholesterolemia Lumbar degenerative disc disease Persistent atrial fibrillation Recurrent UTI Type 2 diabetes mellitus with hyperglycemia Surgical History History of lumpectomy of right breast History of tubal ligation Family History Family History Father Diabetes Heart disease Mother Heart disease Son Opiate addiction Social History Social History Household Members: None Household Members Other:: Brought to ER by son with whom she lives Housing: [facility] Do you presently have visiting nurse or other home services: No Unable to assess alcohol history related to: Unknown Alcohol intake: unknown Patient Tobacco Use Status: Never used Tobacco e-Cigarette/Vaping Use: Never Used Second Hand Smoke Exposure: No Advance Directives: Yes Advance Directives on File: Yes Advance Directives Date on File: 01/09/21 service: No Current occupational status: retired Cognitive needs: Yes (Electric Wheel Chair) Hearing needs: Yes (Earring Aids) Vision needs: Yes (Glasses) Physical Exam ED Vital Signs: Vital Signs - 24 hr 08/12/22 18:31 08/12/22 19:49 08/12/22 20:00 Temperature 101.8 F H 98.2 F 100.4 F Pulse Rate 108 H 71 70 Respiratory Rate 30 H 28 H 20 Blood Pressure 127/64 110/60 112/51 L Pulse Oximetry 99 99 98 Oxygen Delivery Method Nasal Cannula Nasal Cannula Nasal Cannula Oxygen Flow Rate 3 3 08/12/22 20:30 08/12/22 21:00 08/12/22 21:26 Temperature 100.4 F 98.9 F 98.0 F Pulse Rate 71 81 71 Respiratory Rate 24 H 22 H 20 Blood Pressure 104/63 105/45 L 97/47 L Pulse Oximetry 98 96 97 Oxygen Delivery Method Nasal Cannula Nasal Cannula Nasal Cannula Oxygen Flow Rate 3 3 3 BMI result Body Mass Index 27.8 On arrival patient is tachycardic, tachypneic, febrile Appearance: Patient responds to verbal and painful stimuli. Moderate acute distress. Patient lethargic and ill appearing. Head: Normocephalic, atraumatic, no step-offs or deformities Eyes: Pupils equal, round and reactive to light.? ENT: Pharynx normal.? Neck: Normal inspection.? Neck supple.? CVS: Normal heart rate and rhythm.? Pulses normal.? Respiratory: Moderate respiratory distress.? Breath sounds diminished b/l.? Abdomen: Soft and nontender.? Skin: Skin warm and dry.? Normal skin color.? Normal skin turgor.? Extremities: No lower extremity edema.? No calf ttp. 5/5 strength to bilateral upper and lower extremities Neuro: Patient responds to verbal and painful stimuli. Not following commands. Lethargic appearing. Course Reevaluation(s) Reevaluation #1: CBC with leukocytosis 12.7 and a normocytic anemia. Chemistry with no acute electrolyte abnormalities requiring intervention. Patient's magnesium 1.5, will give IV magnesium. Patient's total bilirubin 2.5, transaminases slightly elevated, alk-phos 144 oral order right upper quadrant ultrasound however on palpation of abdomen patient is nontender. Patient's BNP 472 will use cautions with IV hydration. Patient is COVID negative. Pending ultrasound of right upper quadrant, CT of the chest, influenza swab, EKG trop. Plan to admit to hospital Reevaluation #2: Right upper quadrant ultrasound with known cholecystectomy to which was not visualized, gallstones and sludge in the gallbladder, when palpating patient's abdomen, patient does not grimace, low suspicion for acute cholecystitis, unlikely cholangitis. CT of the chest without com trauma showing an elevated right hemidiaphragm, minimal atelectasis in the right lung base in the right middle and lower lobes, tiny right pleural effusion. Enlarged heart and small pericardial effusion. This does not show pneumonia however patient's urine is showing UTI therefore antibiotic coverage was appropriate with the selected antibiotics. Patient's troponin elevated 100.7 however when looking at patient's previous troponins they have always been elevated, EKG without acute signs of ischemia, there are noted Q-waves in the anterior leads which could be secondary to previous MIs I do not suspect acute event. However troponin will be repeated. Patient will be admitted to the hospital, hospitalist aware of patient's troponin they will trend troponins. Also aware of patient's ultrasound of right upper quadrant, like a stated previous no tenderness to palpation of right upper quadrant. Time: 22:58 Medications Administered Discontinued Medications Generic Name Dose Route Start Last Admin Trade Name Belia PRN Reason Stop Dose Admin Acetaminophen 650 mg 08/12/22 19:04 08/12/22 19:19 Acetaminophen 325 Mg Tablet PO 08/12/22 19:05 650 mg ONCE ONE Administration Sodium Chloride 1,000 mls @ 999 mls/hr 08/12/22 19:15 08/12/22 19:19 Ns IV 08/12/22 20:15 999 mls/hr .Q1H1M DANELLE Administration Ceftriaxone Sodium 1 gm/ 50 mls @ 100 mls/hr 08/12/22 19:02 08/12/22 19:49 Sodium Chloride IV 08/12/22 19:31 Infused ONCE ONE Infusion Medical Decision Making Medical Decision Making [facility] Narrative: 1835 76-year-old female presents with lethargy, hypoxia from half-way facility requiring 2 L nasal cannula, was noted to be 80% facility and now saturating 96%. Physical examination with diminished breath sounds bilaterally, patient responding only to painful and verbal stimuli. She is saturating 98% on 3 L, tachycardic, tachypneic and febrile on arrival. Immediately upon patient's arrival a sepsis alert was called. Tylenol was ordered for fever, blood cultures, lactic acid in ceftriaxone ordered for empiric coverage. Concerns for possible UTI versus pneumonia versus viral illness. Patient anticoagulated unlikely PE. Unlikely ACS or CHF. Plans labs, urine, imaging Differential Diagnosis Differential Diagnoses: The differential diagnosis associated with the presentation includes Concerns for possible UTI versus pneumonia versus viral illness. Patient anticoagulated unlikely PE. Unlikely ACS or CHF. Admission/Observation Consideration of admission/observation: Escalation of care including admission/observation considered Will likely require hospital admission Consult Healthcare Provider Management of the patient was discussed with: Hospitalist Lab Data [facility] Lab Attestation statement: I reviewed the patient's lab results. 08/12/22 18:55 08/12/22 18:55 Labs: Lab Results 08/12/22 08/12/22 08/12/22 Range/Units 18:55 18:55 18:55 WBC 12.7 H (4.8-10.8) X10*3/uL RBC 3.59 L (4.20-5.50) X10*6/uL Hgb 11.9 L D (12.0-16.0) g/dl Hct 34.8 L (37.0-47.0) % MCV 96.9 (80.0-98.0) fL MCH 33.1 H (27.0-33.0) pg MCHC 34.2 (31.0-35.0) g/dl RDW 13.6 (11.0-16.0) % Plt Count 201 D (160-400) X10*3/uL MPV 9.1 L (9.4-12.3) fL Immature Gran % (Auto) 0.5 H (0.0-0.4) % Neut % (Auto) 85.6 H (45-73) % Lymph % (Auto) 6.3 L (20-40) % [place] % (Auto) 7.5 (2-11) % Eos % (Auto) 0.0 (0-4) % Baso % (Auto) 0.1 (0-2) % Lymph # (Auto) 0.8 L (1.2-4.9) X10*3/uL [place] # (Auto) 1.0 (0.1-1.2) X10*3/uL Eos # (Auto) 0.0 (0.0-0.4) X10*3/uL Baso # (Auto) 0.0 (0.0-0.2) X10*3/uL Abs Immat Gran (auto) 0.06 H (0.00-0.03) X10*3/uL Absolute Neuts (auto) 10.9 H (2.0-8.3) x10*3/uL Absolute Nucleated RBC 0.000 (0.0-0.012) X10*3/uL Nucleated RBC % (auto) 0.0 (0.0-0.2) /100WBC Sodium 140 (135-145) mmol/L Potassium 4.2 (3.3-5.1) mmol/L Chloride 103 (96-108) mmol/L Carbon Dioxide 23 (22-29) mmol/L Anion Gap 18 (12-20) BUN 18 H (9-16) mg/dL Creatinine 0.77 (0.5-1.4) mg/dL Estim Creat Clear Calc 71.2 Estimated GFR > 60 Random Glucose 133 H (60-115) mg/dL Lactic Acid (0.5-2.0) mmol/L Calcium 8.6 D (8.4-10.2) mg/dL Magnesium 1.5 L (1.6-2.6) mg/dL Total Bilirubin 2.5 H (0.0-1.0) mg/dL AST 48 H (5-31) U/L ALT 41 H (0-31) U/L Alkaline Phosphatase 144 H (39-117) U/L B-Natriuretic Peptide (<100) pg/mL Total Protein 7.2 (6.5-8.0) g/dL Albumin 3.7 (3.5-5.0) g/dL Lipase 11 (8-78) U/L Urine Color Urine Appearance Urine pH (5.0-9.0) Ur Specific [place] (1.005-1.025) Urine Protein (Neg-Trace) mg/dL Urine Glucose (UA) (Negative) mg/dL Urine Ketones (Negative) mg/dL Urine Blood (Negative) Urine Nitrite (Negative) Ur Leukocyte Esterase (Negative) COVID-19 (ELLEN) Negative (Negative) COVID-19 Clin Com See Note Influenza Type A (ARSEN) (Negative) Influenza Type B (ARSEN) (Negative) Influenza A & B Note 08/12/22 08/12/22 08/12/22 Range/Units 18:55 18:55 22:24 WBC (4.8-10.8) X10*3/uL RBC (4.20-5.50) X10*6/uL Hgb (12.0-16.0) g/dl Hct (37.0-47.0) % MCV (80.0-98.0) fL MCH (27.0-33.0) pg MCHC (31.0-35.0) g/dl RDW (11.0-16.0) % Plt Count (160-400) X10*3/uL MPV (9.4-12.3) fL Immature Gran % (Auto) (0.0-0.4) % Neut % (Auto) (45-73) % Lymph % (Auto) (20-40) % [place] % (Auto) (2-11) % Eos % (Auto) (0-4) % Baso % (Auto) (0-2) % Lymph # (Auto) (1.2-4.9) X10*3/uL [place] # (Auto) (0.1-1.2) X10*3/uL Eos # (Auto) (0.0-0.4) X10*3/uL Baso # (Auto) (0.0-0.2) X10*3/uL Abs Immat Gran (auto) (0.00-0.03) X10*3/uL Absolute Neuts (auto) (2.0-8.3) x10*3/uL Absolute Nucleated RBC (0.0-0.012) X10*3/uL Nucleated RBC % (auto) (0.0-0.2) /100WBC Sodium (135-145) mmol/L Potassium (3.3-5.1) mmol/L Chloride (96-108) mmol/L Carbon Dioxide (22-29) mmol/L Anion Gap (12-20) BUN (9-16) mg/dL Creatinine (0.5-1.4) mg/dL Estim Creat Clear Calc Estimated GFR Random Glucose (60-115) mg/dL Lactic Acid 1.0 (0.5-2.0) mmol/L Calcium (8.4-10.2) mg/dL Magnesium (1.6-2.6) mg/dL Total Bilirubin (0.0-1.0) mg/dL AST (5-31) U/L ALT (0-31) U/L Alkaline Phosphatase (39-117) U/L B-Natriuretic Peptide 472 H (<100) pg/mL Total Protein (6.5-8.0) g/dL Albumin (3.5-5.0) g/dL Lipase (8-78) U/L Urine Color Urine Appearance Urine pH (5.0-9.0) Ur Specific [place] (1.005-1.025) Urine Protein (Neg-Trace) mg/dL Urine Glucose (UA) (Negative) mg/dL Urine Ketones (Negative) mg/dL Urine Blood (Negative) Urine Nitrite (Negative) Ur Leukocyte Esterase (Negative) COVID-19 (ELLEN) (Negative) COVID-19 [facility] Influenza Type A (ARSEN) Negative (Negative) Influenza Type B (ARSEN) Negative (Negative) Influenza A & B Note See Note 08/12/22 Range/Units 22:36 WBC (4.8-10.8) X10*3/uL RBC (4.20-5.50) X10*6/uL Hgb (12.0-16.0) g/dl Hct (37.0-47.0) % MCV (80.0-98.0) fL MCH (27.0-33.0) pg MCHC (31.0-35.0) g/dl RDW (11.0-16.0) % Plt Count (160-400) X10*3/uL MPV (9.4-12.3) fL Immature Gran % (Auto) (0.0-0.4) % Neut % (Auto) (45-73) % Lymph % (Auto) (20-40) % [place] % (Auto) (2-11) % Eos % (Auto) (0-4) % Baso % (Auto) (0-2) % Lymph # (Auto) (1.2-4.9) X10*3/uL [place] # (Auto) (0.1-1.2) X10*3/uL Eos # (Auto) (0.0-0.4) X10*3/uL Baso # (Auto) (0.0-0.2) X10*3/uL Abs Immat Gran (auto) (0.00-0.03) X10*3/uL Absolute Neuts (auto) (2.0-8.3) x10*3/uL Absolute Nucleated RBC (0.0-0.012) X10*3/uL Nucleated RBC % (auto) (0.0-0.2) /100WBC Sodium (135-145) mmol/L Potassium (3.3-5.1) mmol/L Chloride (96-108) mmol/L Carbon Dioxide (22-29) mmol/L Anion Gap (12-20) BUN (9-16) mg/dL Creatinine (0.5-1.4) mg/dL Estim Creat Clear Calc Estimated GFR Random Glucose (60-115) mg/dL Lactic Acid (0.5-2.0) mmol/L Calcium (8.4-10.2) mg/dL Magnesium (1.6-2.6) mg/dL Total Bilirubin (0.0-1.0) mg/dL AST (5-31) U/L ALT (0-31) U/L Alkaline Phosphatase (39-117) U/L B-Natriuretic Peptide (<100) pg/mL Total Protein (6.5-8.0) g/dL Albumin (3.5-5.0) g/dL Lipase (8-78) U/L Urine Color Dark Yellow Urine Appearance Turbid Urine pH 5.0 (5.0-9.0) Ur Specific [place] 1.020 (1.005-1.025) Urine Protein 30 (1+) H (Neg-Trace) mg/dL Urine Glucose (UA) Negative (Negative) mg/dL Urine Ketones Trace (Negative) mg/dL Urine Blood Moderate (2+) H (Negative) Urine Nitrite Negative (Negative) Ur Leukocyte Esterase Large (3+) H (Negative) COVID-19 (ELLEN) (Negative) COVID-19 Clin Com Influenza Type A (ARSEN) (Negative) Influenza Type B (ARSEN) (Negative) Influenza A & B Note Independent Interpretation I performed an independent interpretation of an: Plain X-Ray (X-ray with small infiltrate in the right lung with) Radiology Impression Discussion of test interpretation with radiology: I have reviewed the radiologist's reading. Core Measures AMI core measures followed: Yes Measure exclusions: not indicated Critical Care Time Critical Care Time Critical Care Time: No Discharge Plan Discharge Clinical Impression: Acute UTI, Altered mental status, Fever, Hypoxia, Viral illness Patient Disposition: Admitted As Inpatient
[2022-08-12 19:03] LABS: MANUAL DIFF FLAG NO
[2022-08-12 19:05] LABS: Basophils Percent Auto 0.1 % (0-2); Hematocrit 34.8 % (37.0-47.0); Hemoglobin 11.9 g/dl (12.0-16.0); Imm Gran Abs Auto 0.06 X10*3/uL (0.00-0.03); Imm Gran Pct Auto 0.5 % (0.0-0.4); Lymphocytes Absolute Auto 0.8 X10*3/uL (1.2-4.9); Lymphocytes Percent Auto 6.3 % (20-40); Mean Corpuscular HGB Conc 34.2 g/dl (31.0-35.0); Mean Corpuscular Hemoglobin 33.1 pg (27.0-33.0); Mean Corpuscular Volume 96.9 fL (80.0-98.0); Mean Platelet Volume 9.1 fL (9.4-12.3); Monocytes Percent Auto 7.5 % (2-11); Neutrophils Absolute Auto 10.9 x10*3/uL (2.0-8.3); Neutrophils Percent Auto 85.6 % (45-73); Platelet Count 201 X10*3/uL (160-400); Red Blood Count 3.59 X10*6/uL (4.20-5.50); Red Cell Distribution Width 13.6 % (11.0-16.0); White Blood Count 12.7 X10*3/uL (4.8-10.8)
[2022-08-12 19:19] LABS: COVID-19 Test Negative (Negative); IDNOW Serial# 16C4AD1C
[2022-08-12] MEDS: Acetaminophen 325 MG TABLET 650 MG PO (19:19)
[2022-08-12] MEDS: 0.9 % Sodium Chloride 1,000 ML 999 ML IV (19:19)
[2022-08-12] MEDS: cefTRIAXone sodium 1 GM in 0.9 % Sodium Chloride 50 ML IV (19:19)
[2022-08-12 19:24] LABS: B Type Natriuretic Peptide 472 pg/mL (<100)
[2022-08-12 19:27] LABS: Alanine Aminotransferase 41 U/L (0-31); Albumin Level 3.7 g/dL (3.5-5.0); Alkaline Phosphatase 144 U/L (39-117); Anion Gap 18 (12-20); Aspartate Amino Transferase 48 U/L (5-31); Bilirubin Total 2.5 mg/dL (0.0-1.0); Blood Urea Nitrogen 18 mg/dL (9-16); Calcium 8.6 mg/dL (8.4-10.2); Carbon Dioxide 23 mmol/L (22-29); Chloride 103 mmol/L (96-108); Creatinine Clr Calc Pharmacy 71.2; Estimated Glomerular Filt Rate > 60; Glucose Random 133 mg/dL (60-115); Lipase 11 U/L (8-78); Magnesium 1.5 mg/dL (1.6-2.6); Potassium 4.2 mmol/L (3.3-5.1); Sodium 140 mmol/L (135-145); Total Protein 7.2 g/dL (6.5-8.0)
[2022-08-12 19:49] VITALS: BP 110/60; PULSE 71; RESP 28; TEMP 36.8; O2SAT 99
[2022-08-12 20:00] VITALS: BP 112/51; PULSE 70; RESP 20; TEMP 38; O2SAT 98
[2022-08-12 20:30] VITALS: BP 104/63; PULSE 71; RESP 24; TEMP 38; O2SAT 98
--- NOTE | 2022-08-12 20:33 | PHA.MEDREC ---
Pharmacy Consult ? Medication Reconciliation Pharmacy has completed the medication reconciliation. Med rec complete using list from bhavin palmer wendel
--- NOTE | 2022-08-12 20:37 | MHC.EDTECH ---
2000 rounding done ,vitals sign taken ,pt was soil with a medium soft bowel movement ,care given ,bedding change ,pt resting quietly in bed .
[2022-08-12 21:00] VITALS: BP 105/45; PULSE 81; RESP 22; TEMP 37.2; O2SAT 96
--- NOTE | 2022-08-12 21:08 | ECG_ITS ---
Test Reason : BRADYCARDIA Blood Pressure : / mmHG Vent. Rate : 045 BPM Atrial Rate : 045 BPM P-R Int : 234 ms QRS Dur : 096 ms QT Int : 476 ms P-R-T Axes : 030 -26 050 degrees QTc Int : 411 ms Atrial flutter with slow ventricular rate Septal infarct (cited on or before 12-AUG-2022) Abnormal ECG When compared with ECG of 12-AUG-2022 18:36, Rate slower Referred By: Estephania Shaver Electronically Signed By:KEN MARTINEZ
[2022-08-12 21:26] VITALS: BP 97/47; PULSE 71; RESP 20; TEMP 36.7; O2SAT 97
--- NOTE | 2022-08-12 21:28 | PM.IMHP ---
History of Present Illness Date of Service: 08/12/22 Chief Complaint: confusion, hypoxia this is a 76-year-old female with past medical history of persistent AFib on Xarelto, history of DVT, HLD, recurrent UTIs, KRISHAN, presents the hospital from [facility] for increased confusion as well as hypoxia. According to report from EMS patient was found to be hypoxic satting in the 70s, was placed on 2 L of oxygen at [facility]. Patient is 97% on 3 L of oxygen at this time. Patient is obtunded, wakes up to verbal stimuli, but does not answer questions when asked. According to EMR as well as ED provider patient was sent to the hospital from [facility] after being found to be lethargic more than her baseline, unable to obtain review of system as patient is somnolent Vitals on arrival to the ED significant for a temp of 101.8 degrees, heart rate of 108, respiratory rate of 30 Labs are significant for WBC count of 12.7, 12.7, hemoglobin of 11.9, hematocrit 34.8, total bili of 2.5, AST of 48, ALT of 41, alk-phos of 144 previously normal, troponin of 107 which is chronically elevated, BNP of 472, UA positive for leukocyte Estrace and WBC, COVID-19 RSV and influenza negative Imaging including chest CT shows elevated right hemidiaphragm, minimally to lactase is at the right lung base in the right middle and lower lobes, tiny right pleural effusion, enlarged heart and small pericardial effusion Abdominal ultrasound shows gallstone and sludge in the gallbladder Review of Systems Review of Systems: Yes all other systems are reviewed and are negative [facility] Medical History Afib Bacteremia due to Gram-negative bacteria DVT, bilateral lower limbs Hypercholesterolemia Lumbar degenerative disc disease Persistent atrial fibrillation Recurrent UTI Type 2 diabetes mellitus with hyperglycemia Family History Father Diabetes Heart disease Mother Heart disease Son Opiate addiction Surgical History History of lumpectomy of right breast History of tubal ligation Social History Household Members: None Household Members Other:: Brought to ER by son with whom she lives Housing: Longterm Do you presently have visiting nurse or other home services: No Unable to assess alcohol history related to: Unknown Alcohol intake: unknown Patient Tobacco Use Status: Never used Tobacco e-Cigarette/Vaping Use: Never Used Second Hand Smoke Exposure: No Advance Directives: Yes Advance Directives on File: Yes Advance Directives Date on File: 01/09/21 service: No Current occupational status: retired Cognitive needs: Yes (Electric Wheel Chair) Hearing needs: Yes (Earring Aids) Vision needs: Yes (Glasses) Meds Allergies Allergy/AdvReac Type Severity Reaction Status Date / Time Iodinated Contrast Media Allergy Severe THROAT Verified 12/29/21 09:41 [IV Dye, Iodine Containing CLOSES Contrast ] UP/SWELLIN iodine [IODINE] Allergy Severe ANAPHYLAXIS Verified 12/29/21 09:41 sulfamethoxazole Allergy Intermediate rash face Verified 10/17/21 10:17 [From Bactrim] trimethoprim [From Bactrim] Allergy Intermediate rash face Verified 10/17/21 10:17 quetiapine [From SEROQUEL] Allergy Unknown SWELLING Verified 10/17/21 10:17 apixaban [From Eliquis] AdvReac Intermediate Diarrhea Verified 10/17/21 10:17 amoxicillin [Augmentin] AdvReac Unknown Diarrhea Verified 12/29/21 09:45 clavulanic acid [Augmentin] AdvReac Unknown Diarrhea Verified 12/29/21 09:45 lisinopril [LISINOPRIL] AdvReac Unknown Cough Verified 12/29/21 09:45 prednisone [PREDNISONE] AdvReac Unknown INCREASE Verified 12/29/21 09:41 BLOOD PRESSURE Active Medications: Current Medications Pharmacy Consult (Consult Rx Perform Med Rec) 1 each MISCELLANE ONCE PRN PRN Reason: Consult order Home Medications Medication Instructions Recorded Confirmed Last Taken Type albuterol sulfate 90 mcg/actuation 2 puff inhalation Q6H PRN 06/18/20 08/12/22 10/17/21 History aerosol inhaler Shortness Of Breath Or Wheezing Lactobacil.acidophilus-Bifido.animalis 1 cap PO BID 10/17/21 08/12/22 12/24/21 History 5 billion cell sprinkle capsule (Probiotic) acetaminophen 325 mg tablet 650 mg PO Q4H PRN Fever Or Pain 10/17/21 08/12/22 12/24/21 History bisacodyl 10 mg rectal suppository 10 mg NE DAILY PRN Constipation 10/17/21 08/12/22 Unknown History loperamide 2 mg tablet 2 mg PO Q6H PRN Loose Stool 10/17/21 08/12/22 10/26/21 History multivitamin with minerals 1 tab PO DAILY 10/17/21 08/12/22 12/24/21 History sennosides 8.6 mg tablet (senna) 17.2 mg PO DAILY PRN Constipation 10/17/21 08/12/22 Unknown History trazodone 50 mg tablet 50 mg PO BEDTIME 10/17/21 08/12/22 12/24/21 History furosemide 20 mg tablet 1 tab PO DAILY 12/25/21 08/12/22 12/24/21 History menthol 4 % topical gel (Biofreeze 1 appl topical BID 12/25/21 08/12/22 12/25/21 History (menthol)) mirtazapine 7.5 mg tablet 7.5 mg PO BEDTIME 12/25/21 08/12/22 12/24/21 History nystatin 100,000 unit/gram topical 1 appl topical BID 12/25/21 08/12/22 12/25/21 History cream potassium chloride 20 mEq 1 tab PO BID 12/25/21 08/12/22 12/25/21 History tablet,extended release(part/cryst) rivaroxaban 20 mg tablet (Xarelto) 1 tab PO DAILY 12/25/21 08/12/22 12/24/21 History insulin glargine 100 unit/mL (3 20 unit subcut BEDTIME 08/12/22 08/12/22 Unknown History mL) subcutaneous pen (Lantus Solostar U-100 Insulin) metoprolol tartrate 50 mg tablet 50 mg PO BID 08/12/22 08/12/22 Unknown History sodium phosphates 19 gram-7 118 ml NE DAILY PRN Constipation 08/12/22 08/12/22 Unknown History gram/118 mL enema (Fleet Enema) Physical Exam Vital Signs and Narrative: Vital Signs: Last Vital Signs Temp 100.4 F 08/12/22 20:30 Pulse 71 08/12/22 20:30 Resp 24 H 08/12/22 20:30 BP 104/63 08/12/22 20:30 Pulse Ox 98 08/12/22 20:30 O2 Del Method 08/12/22 20:30 O2 Flow Rate 3 08/12/22 20:30 Oxygen Flow Rate 2 08/12/22 18:31 BMI result Body Mass Index 27.8 Const: Other: patient is somnolent but arousable to verbal stimuli, does not answer questions appropriately General: no acute distress Eyes: General: appearance normal, both eyes and all related structures Resp: Effort & Inspection: normal respiratory effort Cardio: Other: irregular rhythm Rate: regular rate GI: Palpation (GI): Soft to palpation Auscultation: normal bowel sounds Skin: General skin exam: no rashes or lesions noted Extrem: Other: trace lower extremity General: Yes normal to inspection Results Labs 08/12/22 18:55 08/12/22 18:55 Labs: Laboratory Results - last 24 hr 08/12/22 08/12/22 08/12/22 18:55 18:55 18:55 MCV 96.9 MCH 33.1 H MCHC 34.2 RDW 13.6 Plt Count 201 D MPV 9.1 L Immature Gran % (Auto) 0.5 H Neut % (Auto) 85.6 H Lymph % (Auto) 6.3 L [place] % (Auto) 7.5 Eos % (Auto) 0.0 Baso % (Auto) 0.1 Lymph # (Auto) 0.8 L [place] # (Auto) 1.0 Eos # (Auto) 0.0 Baso # (Auto) 0.0 Abs Immat Gran (auto) 0.06 H Absolute Neuts (auto) 10.9 H Absolute Nucleated RBC 0.000 Nucleated RBC % (auto) 0.0 Anion Gap 18 Estim Creat Clear Calc 71.2 Estimated GFR > 60 Random Glucose 133 H Lactic Acid Calcium 8.6 D Magnesium 1.5 L Total Bilirubin 2.5 H AST 48 H ALT 41 H Alkaline Phosphatase 144 H B-Natriuretic Peptide Total Protein 7.2 Albumin 3.7 Lipase 11 COVID-19 (ELLEN) Negative COVID-19 Clin Com See Note 08/12/22 08/12/22 18:55 18:55 MCV MCH MCHC RDW Plt Count MPV Immature Gran % (Auto) Neut % (Auto) Lymph % (Auto) [place] % (Auto) Eos % (Auto) Baso % (Auto) Lymph # (Auto) [place] # (Auto) Eos # (Auto) Baso # (Auto) Abs Immat Gran (auto) Absolute Neuts (auto) Absolute Nucleated RBC Nucleated RBC % (auto) Anion Gap Estim Creat Clear Calc Estimated GFR Random Glucose Lactic Acid 1.0 Calcium Magnesium Total Bilirubin AST ALT Alkaline Phosphatase B-Natriuretic Peptide 472 H Total Protein Albumin Lipase COVID-19 (ELLEN) COVID-19 Clin Com Imaging Radiologist's Impressions: Impressions Chest X-Ray 08/12/22 19:01 IMPRESSION: Question right base atelectasis or small infiltrate and small left pleural effusion. Assessment and Plan (1) Sepsis: Status: Acute (2) Acute metabolic encephalopathy: Status: Acute (3) Acute respiratory failure with hypoxia: Status: Acute (4) Acute UTI: Status: Acute (5) CHF exacerbation: Status: Acute (6) Transaminitis: Status: Acute Plan 76-year-old female with history of recurrent UTIs, presents to the hospital from [facility] [facility] with altered mental status as well as hypoxia # acute sepsis - UTI versus pneumonia - has positive UA, as well as evidence of pneumonia on chest x-ray, atelectasis on chest CT - patient has fever, tachycardia, as well as leukocytosis - will treat with IV antibiotics - follow cultures # metabolic encephalopathy - likely secondary to acute infection as well as hypoxia versus polypharmacy - patient has evidence of UTI, possible pneumonia, and hypoxia secondary to CHF versus pneumonia - electrolytes show hypo magnesemia otherwise stable - will hold sedative medications at this time as patient is pretty somnolent - treat underlying acute infection # acute hypoxic respiratory failure - acute CHF versus pneumonia - chest CT shows pulmonary effusion with no evidence of pneumonia, mostly atelectasis - has elevated BNP - will treat with IV Lasix, continue O2 as required # acute CHF exacerbation - clinically has trace lower extremity edema - evidence of pulmonary effusion on imaging - elevated BNP - will treat with IV Lasix cautiously given her soft blood pressure readings - will consult Cardiology for further recommendation # acute UTI - has history of recurrent UTI - will treat with IV antibiotics given her encephalopathy - follow cultures # transaminiti - abdomen ultrasound shows possible gallstones and sludge in the gallbladder - abdominal pelvic CT pending - patient will be started on IV antibiotics as above which will cover acute cholecystitis of present - depending on abdominal CT findings, will consider surgical intervention # AFib - history of persistent AFib - continues oral toe and metoprolol for rate control DVT prophylaxis: Xarelto given patient's multiple abnormalities including sepsis requiring IV antibiotics as well as hypoxia requiring oxygen supplement patient require 2 nights inpatient hospital stay for further management and monitoring Time Spent With Patient Time: Total time managing care of this patient today ____ minutes. Quality Stroke Does the patient have a stroke diagnosis?: No VTE Prior VTE?: No VTE Risk Level:: Medical - moderate - high VTE Device Contraindication: Treatment Not Indicated VTE Drug Contraindication: N/A - Med Ordered
--- NOTE | 2022-08-12 22:40 | PC.NURSE ---
Assumed care of pt. at 1900. Pt. lethargic lying in bed, however is arousable to name. Pt. was able to be alert and sit up to talk tylenol for fever. Sepsis protocol completed with 1L fluid per MD order. VSS. Pt. straight cath'd for urine, which was sent down to lab. Pt. lying in bed with no apparent distress noted.
[2022-08-12 22:46] LABS: Appearance Urine Turbid; Color Urine Dark Yellow; Glucose Urine UA Negative (Negative); Leukocyte Esterase Urine Large (3+) (Negative); Nitrite Urine Negative (Negative); UMIC TRIGGER UACC YES; Urine Blood Moderate (2+) (Negative); Urine Ketones Trace mg/dL (Negative); Urine Protein 30 (1+) mg/dL (Neg-Trace)
[2022-08-12 22:48] LABS: IDNOW Serial# 6674DD1D; Influenza A Negative (Negative); Influenza B2 Negative (Negative)
[2022-08-12 22:53] LABS: Bacteria Urine 4+ (None Seen); RBC Urine 0-2 /HPF (0-2); UACC Culture Trigger YES; WBC Urine >50 /HPF (0-5)
[2022-08-12] MEDS: Azithromycin 500 MG in 0.9 % Sodium Chloride 250 ML 125 MG IV (22:55)
[2022-08-12 22:56] LABS: Troponin-I High Sensitivity 107.1 ng/L (<3.5-17.0)
[2022-08-13] MEDS: metroNIDAZOLE/NS 500 MG/100 ML PIGGYBACK 100 MG IV ×4 (01:28→23:50)
[2022-08-13] MEDS: Furosemide 20 MG/2 ML VIAL IVPUSH ×2 (01:28→08:41)
--- NOTE | 2022-08-13 01:39 | MHC.EDTECH ---
Pt given pericare bed pad changed. Pt setup on [facility] system. PT given warm blankets call torres in reach
[2022-08-13 02:13] VITALS: BP 119/56; PULSE 50; RESP 20; TEMP 36.7; O2SAT 99
[2022-08-13 02:52] LABS: Troponin-I High Sensitivity 91.8 ng/L (<3.5-17.0)
--- NOTE | 2022-08-13 02:53 | PC.NURSE ---
critical trop-91.8 report to IDALMIS Freeman
[2022-08-13 05:04] VITALS: BP 115/57; PULSE 57; RESP 23; TEMP 36.6; O2SAT 99
--- NOTE | 2022-08-13 05:14 | PC.NURSE ---
Pt. noted to be in bradycardia on the monitor with a low HR of 42 along with pauses and an occasional PVC. EKG performed and hospitalist notified.
[2022-08-13 06:11] LABS: Alanine Aminotransferase 35 U/L (0-31); Albumin Level 3.3 g/dL (3.5-5.0); Alkaline Phosphatase 120 U/L (39-117); Anion Gap 17 (12-20); Aspartate Amino Transferase 31 U/L (5-31); Bilirubin Total 1.6 mg/dL (0.0-1.0); Blood Urea Nitrogen 19 mg/dL (9-16); Calcium 8.5 mg/dL (8.4-10.2); Carbon Dioxide 24 mmol/L (22-29); Chloride 107 mmol/L (96-108); Creatinine Clr Calc Pharmacy 76.2; Estimated Glomerular Filt Rate > 60; Glucose Random 115 mg/dL (60-115); Potassium 4.9 mmol/L (3.3-5.1); Sodium 143 mmol/L (135-145); Total Protein 7.4 g/dL (6.5-8.0)
[2022-08-13] MEDS: 0.9 % Sodium Chloride Flush 3 ML SYRINGE IVFLUSH ×3 (07:20→22:04)
[2022-08-13 07:26] LABS: Glucose, Whole Blood 95 mg/dL (60-115)
[2022-08-13 07:40] VITALS: BMI 28.3
--- NOTE | 2022-08-13 08:08 | MHC.EDTECH ---
pt refused breakfast at this time, pt would like to rest, will attempt to offer meal later. rn aware
[2022-08-13] MEDS: Metoprolol Tartrate 50 MG TABLET PO (08:41)
[2022-08-13] MEDS: Rivaroxaban 20 MG TABLET PO (08:41)
[2022-08-13] MEDS: Potassium Chloride ER 20 MEQ TAB.ER.PRT PO (08:41)
[2022-08-13] MEDS: Multivitamin TABLET 1 TAB PO (08:41)
--- NOTE | 2022-08-13 09:06 | PC.NURSE ---
Pt took meds whole with orange juice and was able to take 3 bites of eggs for breakfast
--- NOTE | 2022-08-13 09:18 | PC.NURSE ---
attempted to give report to [facility] @ [id number]
--- NOTE | 2022-08-13 09:53 | PC.NURSE ---
[id number] second attempt to give report to C
--- NOTE | 2022-08-13 09:58 | MHC.EDTECH ---
pt was incontinent of urine and stool. pericare was given with help from IDALMIS Perez, purewick was placed, clean linen was given. pt is comfortable and no signs of distress.
[2022-08-13 10:21] VITALS: BP 99/59; PULSE 65; RESP 18; TEMP 36.6; O2SAT 96
--- NOTE | 2022-08-13 10:33 | HO.PM.IMPN ---
Subjective Subjective Date of Service: 08/13/22 Interval History: f/u UTI, ecnephalopath, heart failure interval history: better, c/o feeling dizzy, hypoxia resolved. Physical Exam Vital Signs: Vital Signs: Last Vital Signs Temp 97.8 F 08/13/22 10:21 Pulse 65 08/13/22 10:21 Resp 18 08/13/22 10:21 BP 99/59 L 08/13/22 10:21 Pulse Ox 96 08/13/22 10:21 O2 Del Method 08/13/22 10:21 O2 Flow Rate 2 08/13/22 05:04 Oxygen Flow Rate 2 08/12/22 18:31 BMI result Body Mass Index 28.3 Const: Other: General: AO X 3, no acute distress Resp: CTA bilateral CVS: S1,S2,RRR GI: +BS, NT, no distention Skin: No rash Neuro: motor grossly intact Psych: appropriate affect Objective Data Active Medications Acetaminophen (Acetaminophen 325 Mg Tablet) 650 mg PO Q6H PRN PRN Reason: Pain, Mild (Pain Scale 1-3) Acetaminophen (Acetaminophen 325 Mg Tablet) 650 mg PO Q4H PRN PRN Reason: Fever Or Pain Albuterol Sulfate (Albuterol Sulfate 90 Mcg 8 Gm Inhaler) 2 puff INHALE Q6H PRN PRN Reason: Shortness Of Breath Or Wheezing Amlodipine Besylate (Amlodipine Besylate 10 Mg Tablet) 10 mg PO DAILY [facility]; Protocol Atorvastatin Calcium (Atorvastatin Calcium 10 Mg Tablet) 10 mg PO BEDTIME [facility] Bisacodyl (Bisacodyl 10 Mg Supp.Rect) 10 mg NE DAILY PRN PRN Reason: Constipation Clonazepam (Clonazepam 1 Mg Tablet) 1 mg PO BID [facility] Dextrose (Dextrose 50 % 25 Gm/50 Ml Syringe) 25 gm IVPUSH Q15M PRN; Protocol PRN Reason: per Hypoglycemia Standing Ord. Dextrose (Dextrose 50 % 25 Gm/50 Ml Syringe) 25 gm IVPUSH Q15M PRN; Protocol PRN Reason: per Hypoglycemia Standing Ord. Docusate Sodium (Docusate Sodium 100 Mg Capsule) 100 mg PO DAILY PRN PRN Reason: Constipation Escitalopram Oxalate (Escitalopram Oxalate 10 Mg Tablet) 10 mg PO DAILY [facility] Furosemide (Furosemide 20 Mg/2 Ml Vial) 20 mg IVPUSH DAILY [facility]; Protocol Last Admin: 08/13/22 08:41 Dose: 20 mg Documented By: ANGELITO Glucose (Glucose Gel 15 Gm Gel..Gram.) 15 gm PO Q15M PRN; Protocol PRN Reason: per Hypoglycemia Standing Ord. Glucose (Glucose Gel 15 Gm Gel..Gram.) 15 gm PO Q15M PRN; Protocol PRN Reason: per Hypoglycemia Standing Ord. Ceftriaxone Sodium 1 gm/ (Sodium Chloride) 50 mls @ 100 mls/hr IV Q24H [facility] Azithromycin 500 mg/ Sodium (Chloride) 250 mls @ 125 mls/hr IV Q24H [facility] Last Infusion: 08/13/22 07:17 Dose: 0 mls/hr Documented By: ANGELITO Metronidazole (Flagyl) 500 mg in 100 mls @ 100 mls/hr IV Q8H [facility] Last Infusion: 08/13/22 08:40 Dose: 0 mls/hr Documented By: ANGELITO Insulin Glargine (Insulin Glargine,Hum.Rec.Anlog 100 Unit/Ml 10 Ml Vial) 20 unit SUBCUT BEDTIME [facility] Insulin Human Lispro (Insulin Lispro 100 Unit/Ml 3 Ml Vial) 0 unit SUBCUT QIDACHS [facility]; Protocol Last Admin: 08/13/22 07:20 Dose: Not Given Documented By: ANGELITO Non-Admin Reason: No Insulin Coverage Insulin Human Lispro (Insulin Lispro 100 Unit/Ml 3 Ml Vial) 0 unit SUBCUT QIDACHS [facility]; Protocol Last Admin: 08/13/22 07:20 Dose: Not Given Documented By: ANGELITO Non-Admin Reason: No Insulin Coverage Loperamide HCl (Loperamide Hcl 2 Mg Capsule) 2 mg PO Q6H PRN PRN Reason: Loose Stool Metformin HCl (Metformin Hcl 500 Mg Tablet) 500 mg PO BID [facility] Metoprolol Tartrate (Metoprolol Tartrate 50 Mg Tablet) 50 mg PO BID [facility]; Protocol Last Admin: 08/13/22 08:41 Dose: 50 mg Documented By: ANGELITO Mirtazapine (Mirtazapine 7.5 Mg Tablet) 7.5 mg PO BEDTIME [facility] Multivitamins/Vitamin C (Multivitamin Tablet) 1 tab PO DAILY [facility] Last Admin: 08/13/22 08:41 Dose: 1 tab Documented By: ANGELITO Nystatin (Nystatin Cream 15 Gm Tube) 1 appl TOPICAL BID [facility]; Protocol Last Admin: 08/13/22 09:06 Dose: Not Given Documented By: ANGELITO Non-Admin Reason: Med Not Available Ondansetron HCl (Ondansetron Hcl 4 Mg/2 Ml Vial) 4 mg IVPUSH Q8H PRN PRN Reason: Nausea and Vomiting Pharmacy Consult (Consult Rx Perform Med Rec) 1 each MISCELLANE ONCE PRN PRN Reason: Consult order Potassium Chloride (Potassium Chloride Er 20 Meq Tab.Er.Prt) 20 meq PO BID [facility] Last Admin: 08/13/22 08:41 Dose: 20 meq Documented By: ANGELITO Pregabalin (Pregabalin 100 Mg Capsule) 100 mg PO TID [facility] Rivaroxaban (Rivaroxaban 20 Mg Tablet) 20 mg PO DAILY [facility] Last Admin: 08/13/22 08:41 Dose: 20 mg Documented By: ANGELITO Senna (Sennosides 8.6 Mg Tablet) 17.2 mg PO DAILY PRN PRN Reason: Constipation Sodium Biphosphate/Sodium Phosphate (Sodium Phosphate,[place]-Dibasic 133 Ml Enema) 118 ml NE DAILY PRN PRN Reason: Constipation Sodium Chloride (0.9 % Sodium Chloride Flush 3 Ml Syringe) 3 ml IVFLUSH QSHIFT [facility] Last Admin: 08/13/22 07:20 Dose: 3 ml Documented By: ANGELITO Trazodone HCl (Trazodone Hcl 50 Mg Tablet) 50 mg PO BEDTIME [facility] Labs 08/12/22 18:55 08/13/22 05:51 Labs: Laboratory Results - last 24 hr 08/12/22 08/12/22 08/12/22 18:55 18:55 18:55 MCV 96.9 MCH 33.1 H MCHC 34.2 RDW 13.6 Plt Count 201 D MPV 9.1 L Immature Gran % (Auto) 0.5 H Neut % (Auto) 85.6 H Lymph % (Auto) 6.3 L [place] % (Auto) 7.5 Eos % (Auto) 0.0 Baso % (Auto) 0.1 Lymph # (Auto) 0.8 L [place] # (Auto) 1.0 Eos # (Auto) 0.0 Baso # (Auto) 0.0 Abs Immat Gran (auto) 0.06 H Absolute Neuts (auto) 10.9 H Absolute Nucleated RBC 0.000 Nucleated RBC % (auto) 0.0 Anion Gap 18 Estim Creat Clear Calc 71.2 Estimated GFR > 60 POC Glucose Random Glucose 133 H Lactic Acid Calcium 8.6 D Magnesium 1.5 L Total Bilirubin 2.5 H AST 48 H ALT 41 H Alkaline Phosphatase 144 H Troponin I High Sens B-Natriuretic Peptide Total Protein 7.2 Albumin 3.7 Lipase 11 Urine Color Urine Appearance Urine pH Ur Specific [place] Urine Protein Urine Glucose (UA) Urine Ketones Urine Blood Urine Nitrite Ur Leukocyte Esterase Urine RBC Urine WBC Ur Squamous Epith Cells Urine Bacteria Hyaline Casts COVID-19 (ELLEN) Negative COVID-19 Clin Com See Note Influenza Type A (ARSEN) Influenza Type B (ARSEN) Influenza A & B Note 08/12/22 08/12/22 08/12/22 18:55 18:55 22:24 MCV MCH MCHC RDW Plt Count MPV Immature Gran % (Auto) Neut % (Auto) Lymph % (Auto) [place] % (Auto) Eos % (Auto) Baso % (Auto) Lymph # (Auto) [place] # (Auto) Eos # (Auto) Baso # (Auto) Abs Immat Gran (auto) Absolute Neuts (auto) Absolute Nucleated RBC Nucleated RBC % (auto) Anion Gap Estim Creat Clear Calc Estimated GFR POC Glucose Random Glucose Lactic Acid 1.0 Calcium Magnesium Total Bilirubin AST ALT Alkaline Phosphatase Troponin I High Sens B-Natriuretic Peptide 472 H Total Protein Albumin Lipase Urine Color Urine Appearance Urine pH Ur Specific [place] Urine Protein Urine Glucose (UA) Urine Ketones Urine Blood Urine Nitrite Ur Leukocyte Esterase Urine RBC Urine WBC Ur Squamous Epith Cells Urine Bacteria Hyaline Casts COVID-19 (ELLEN) COVID-19 Clin Com Influenza Type A (ARSEN) Negative Influenza Type B (ARSEN) Negative Influenza A & B Note See Note 08/12/22 08/12/22 08/13/22 22:24 22:36 01:53 MCV MCH MCHC RDW Plt Count MPV Immature Gran % (Auto) Neut % (Auto) Lymph % (Auto) [place] % (Auto) Eos % (Auto) Baso % (Auto) Lymph # (Auto) [place] # (Auto) Eos # (Auto) Baso # (Auto) Abs Immat Gran (auto) Absolute Neuts (auto) Absolute Nucleated RBC Nucleated RBC % (auto) Anion Gap Estim Creat Clear Calc Estimated GFR POC Glucose Random Glucose Lactic Acid Calcium Magnesium Total Bilirubin AST ALT Alkaline Phosphatase Troponin I High Sens 107.1 H* 91.8 H* B-Natriuretic Peptide Total Protein Albumin Lipase Urine Color Dark Yellow Urine Appearance Turbid Urine pH 5.0 Ur Specific [place] 1.020 Urine Protein 30 (1+) H Urine Glucose (UA) Negative Urine Ketones Trace Urine Blood Moderate (2+) H Urine Nitrite Negative Ur Leukocyte Esterase Large (3+) H Urine RBC 0-2 Urine WBC >50 Ur Squamous Epith Cells 6-10 Urine Bacteria 4+ Hyaline Casts 3-5 COVID-19 (ELLEN) COVID-19 Clin Com Influenza Type A (ARSEN) Influenza Type B (ARSEN) Influenza A & B Note 08/13/22 08/13/22 05:51 07:19 MCV MCH MCHC RDW Plt Count MPV Immature Gran % (Auto) Neut % (Auto) Lymph % (Auto) [place] % (Auto) Eos % (Auto) Baso % (Auto) Lymph # (Auto) [place] # (Auto) Eos # (Auto) Baso # (Auto) Abs Immat Gran (auto) Absolute Neuts (auto) Absolute Nucleated RBC Nucleated RBC % (auto) Anion Gap 17 Estim Creat Clear Calc 76.2 Estimated GFR > 60 POC Glucose 95 Random Glucose 115 Lactic Acid Calcium 8.5 Magnesium Total Bilirubin 1.6 H AST 31 ALT 35 H Alkaline Phosphatase 120 H Troponin I High Sens B-Natriuretic Peptide Total Protein 7.4 Albumin 3.3 L Lipase Urine Color Urine Appearance Urine pH Ur Specific [place] Urine Protein Urine Glucose (UA) Urine Ketones Urine Blood Urine Nitrite Ur Leukocyte Esterase Urine RBC Urine WBC Ur Squamous Epith Cells Urine Bacteria Hyaline Casts COVID-19 (ELLEN) COVID-19 Clin Com Influenza Type A (ARSEN) Influenza Type B (ARSEN) Influenza A & B Note Assessment and Plan (1) Acute respiratory failure with hypoxia: Status: Acute (2) CHF exacerbation: Status: Acute (3) Sepsis: Status: Acute (4) Transaminitis: Status: Acute Plan 76-year-old female with history of recurrent UTIs, [facility] with altered mental status as well as hypoxia # Acute sepsis d/t PNA, and UZTI -continue Ceftriaxone and Azithro # metabolic encephalopathy--d/t UTi, treat underlying cause # acute hypoxic respiratory failure d/t PNA, CHF--presently not hypOxic, 96 on RA # Acute diastolic CHF, with mild exacerbation, continue IV Lasix and follow clinically, can hold of cardiology consult for now # transaminitis - abdomen ultrasound shows possible gallstones and sludge in the gallbladder - abdominal pelvic CT pending - patient will be started on IV antibiotics as above which will cover acute cholecystitis of present - depending on abdominal CT findings, will consider surgical intervention # Persistent AFib -continue Metoprolol and xarelto DVT prophylaxis: Xarelto need for inpatient: sepsis, heart failure on IV diuretics, IV Abx and monitoring response Time Spent With Patient Time: Total time managing care of this patient today ____ minutes. Quality Stroke Does the patient have a stroke diagnosis?: No VTE Prior VTE?: No VTE Risk Level:: Medical - moderate - high VTE Device Contraindication: Treatment Not Indicated VTE Drug Contraindication: N/A - Med Ordered
[2022-08-13 11:06] LABS: Glucose, Whole Blood 145 mg/dL (60-115)
[2022-08-13] MEDS: clonazePAM 1 MG TABLET PO (11:12)
[2022-08-13] MEDS: Pregabalin 100 MG CAPSULE PO ×2 (11:12→15:39)
[2022-08-13] MEDS: Escitalopram Oxalate 10 MG TABLET PO (11:13)
--- NOTE | 2022-08-13 11:32 | MHC.CM.PN ---
pt admitted from [facility] where she will return when dcd
[2022-08-13 12:00] VITALS: BP 101/62; PULSE 76; RESP 18; TEMP 36.8; O2SAT 96
[2022-08-13 16:00] VITALS: BP 101/62; PULSE 80; RESP 18; TEMP 36.6
[2022-08-13 17:42] LABS: Glucose, Whole Blood 139 mg/dL (60-115)
[2022-08-13 20:00] VITALS: BP 136/73; PULSE 110; RESP 20; TEMP 37.2; O2SAT 92
[2022-08-13 20:39] LABS: Glucose, Whole Blood 160 mg/dL (60-115)
[2022-08-13] MEDS: cefTRIAXone sodium 1 GM in 0.9 % Sodium Chloride 50 ML IV (21:25)
[2022-08-13] MEDS: Azithromycin 500 MG in 0.9 % Sodium Chloride 250 ML 250 MG IV (22:03)
[2022-08-14] VITALS (7 sets, daily range): BP systolic 101–152; BP diastolic 55–78; PULSE 71–150; RESP 14–20; TEMP 36.8–37.4; O2SAT 92–96
[2022-08-14] MEDS: Metoprolol Tartrate 5 MG/5 ML VIAL IVPUSH (05:20)
--- NOTE | 2022-08-14 05:42 | PC.NURSE ---
P: Pt. refused all medications - stated I'm not taking any pills I: Patient assessed, unable to give reason for refusing medications. Educated and encouraged for medical reasoning however patient adamant. Medications discarded. During overnight pt. in afib, HR started to increase and sustain 120's-150's. MD made aware and order for 5mg IV Lopressor ordered and administered. E: HR trending back down to low 100's. Will continue to monitor and reassess.
[2022-08-14 07:51] LABS: Glucose, Whole Blood 166 mg/dL (60-115)
[2022-08-14] MEDS: Pregabalin 100 MG CAPSULE PO ×3 (08:43→22:48)
[2022-08-14] MEDS: Potassium Chloride ER 20 MEQ TAB.ER.PRT PO ×2 (08:43→22:48)
[2022-08-14] MEDS: amLODIPine Besylate 10 MG TABLET PO (08:43)
[2022-08-14] MEDS: Multivitamin TABLET 1 TAB PO (08:44)
[2022-08-14] MEDS: Rivaroxaban 20 MG TABLET PO (08:44)
[2022-08-14] MEDS: Furosemide 20 MG/2 ML VIAL IVPUSH (08:44)
[2022-08-14] MEDS: metFORMIN HCl 500 MG TABLET PO ×2 (08:44→22:49)
[2022-08-14] MEDS: Metoprolol Tartrate 50 MG TABLET PO ×2 (08:44→22:48)
[2022-08-14] MEDS: clonazePAM 1 MG TABLET PO ×2 (08:44→22:48)
[2022-08-14] MEDS: Escitalopram Oxalate 10 MG TABLET PO (08:44)
[2022-08-14] MEDS: Insulin Lispro 100 UNIT/ML 3 ML VIAL SUBCUT ×3 (08:45→16:37)
[2022-08-14] MEDS: 0.9 % Sodium Chloride Flush 3 ML SYRINGE IVFLUSH ×3 (08:45→22:49)
[2022-08-14] MEDS: metroNIDAZOLE/NS 500 MG/100 ML PIGGYBACK 100 MG IV ×2 (08:46→14:43)
[2022-08-14] MEDS: Nystatin Cream 15 GM TUBE 1 APPL TOPICAL ×2 (08:56→22:51)
--- NOTE | 2022-08-14 09:09 | HO.PM.IMPN ---
Subjective Subjective Date of Service: 08/14/22 Interval History: f/u UTI, ecnephalopath, heart failure interval history: better, no dizziness, no fever Physical Exam Vital Signs: Vital Signs: Last Vital Signs Temp 98.7 F 08/14/22 07:36 Pulse 100 08/14/22 07:36 Resp 14 08/14/22 07:36 BP 101/55 L 08/14/22 07:36 Pulse Ox 94 08/14/22 07:36 O2 Del Method 08/14/22 07:36 O2 Flow Rate 2 08/13/22 05:04 Oxygen Flow Rate 2 08/12/22 18:31 BMI result Body Mass Index 28.3 Const: Other: General: AO X 2, no acute distress Resp: CTA bilateral CVS: S1,S2,RRR GI: +BS, NT, no distention Skin: No rash Neuro: motor grossly intact Psych: appropriate affect Objective Data Active Medications Acetaminophen (Acetaminophen 325 Mg Tablet) 650 mg PO Q6H PRN PRN Reason: Pain, Mild (Pain Scale 1-3) Acetaminophen (Acetaminophen 325 Mg Tablet) 650 mg PO Q4H PRN PRN Reason: Fever Or Pain Albuterol Sulfate (Albuterol Sulfate 90 Mcg 8 Gm Inhaler) 2 puff INHALE Q6H PRN PRN Reason: Shortness Of Breath Or Wheezing Amlodipine Besylate (Amlodipine Besylate 10 Mg Tablet) 10 mg PO DAILY [facility]; Protocol Last Admin: 08/14/22 08:43 Dose: 10 mg Documented By: DORYS Atorvastatin Calcium (Atorvastatin Calcium 10 Mg Tablet) 10 mg PO BEDTIME [facility] Last Admin: 08/13/22 21:22 Dose: Not Given Documented By: ANTOIC Non-Admin Reason: Patient Refused Bisacodyl (Bisacodyl 10 Mg Supp.Rect) 10 mg [place] DAILY PRN PRN Reason: Constipation Clonazepam (Clonazepam 1 Mg Tablet) 1 mg PO BID [facility] Last Admin: 08/14/22 08:44 Dose: 1 mg Documented By: DORYS Dextrose (Dextrose 50 % 25 Gm/50 Ml Syringe) 25 gm IVPUSH Q15M PRN; Protocol PRN Reason: per Hypoglycemia Standing Ord. Dextrose (Dextrose 50 % 25 Gm/50 Ml Syringe) 25 gm IVPUSH Q15M PRN; Protocol PRN Reason: per Hypoglycemia Standing Ord. Docusate Sodium (Docusate Sodium 100 Mg Capsule) 100 mg PO DAILY PRN PRN Reason: Constipation Escitalopram Oxalate (Escitalopram Oxalate 10 Mg Tablet) 10 mg PO DAILY [facility] Last Admin: 08/14/22 08:44 Dose: 10 mg Documented By: DORYS Furosemide (Furosemide 20 Mg/2 Ml Vial) 20 mg IVPUSH DAILY [facility]; Protocol Last Admin: 08/14/22 08:44 Dose: 20 mg Documented By: DORYS Glucose (Glucose Gel 15 Gm Gel..Gram.) 15 gm PO Q15M PRN; Protocol PRN Reason: per Hypoglycemia Standing Ord. Glucose (Glucose Gel 15 Gm Gel..Gram.) 15 gm PO Q15M PRN; Protocol PRN Reason: per Hypoglycemia Standing Ord. Ceftriaxone Sodium 1 gm/ (Sodium Chloride) 50 mls @ 100 mls/hr IV Q24H [facility] Last Infusion: 08/13/22 22:04 Dose: 0 mls/hr Documented By: ANTOIC Azithromycin 500 mg/ Sodium (Chloride) 250 mls @ 125 mls/hr IV Q24H [facility] Last Infusion: 08/13/22 23:52 Dose: 0 mls/hr Documented By: ANTOIC Metronidazole (Flagyl) 500 mg in 100 mls @ 100 mls/hr IV Q8H [facility] Last Admin: 08/14/22 08:46 Dose: 100 mls/hr Documented By: DORYS Insulin Glargine (Insulin Glargine,Hum.Rec.Anlog 100 Unit/Ml 10 Ml Vial) 20 unit SUBCUT BEDTIME [facility] Last Admin: 08/13/22 21:23 Dose: Not Given Documented By: AMANDA Non-Admin Reason: Patient Refused Insulin Human Lispro (Insulin Lispro 100 Unit/Ml 3 Ml Vial) 0 unit SUBCUT QIDACHS [facility]; Protocol Last Admin: 08/14/22 08:45 Dose: 2 unit Documented By: DORYS Insulin Human Lispro (Insulin Lispro 100 Unit/Ml 3 Ml Vial) 0 unit SUBCUT QIDACHS [facility]; Protocol Last Admin: 08/14/22 08:45 Dose: Not Given Documented By: DORYS Non-Admin Reason: Duplicate Order Loperamide HCl (Loperamide Hcl 2 Mg Capsule) 2 mg PO Q6H PRN PRN Reason: Loose Stool Metformin HCl (Metformin Hcl 500 Mg Tablet) 500 mg PO BID [facility] Last Admin: 08/14/22 08:44 Dose: 500 mg Documented By: DORYS Metoprolol Tartrate (Metoprolol Tartrate 50 Mg Tablet) 50 mg PO BID [facility]; Protocol Last Admin: 08/14/22 08:44 Dose: 50 mg Documented By: DORYS Mirtazapine (Mirtazapine 7.5 Mg Tablet) 7.5 mg PO BEDTIME [facility] Last Admin: 08/13/22 21:22 Dose: Not Given Documented By: ANTOIC Non-Admin Reason: Patient Refused Multivitamins/Vitamin C (Multivitamin Tablet) 1 tab PO DAILY [facility] Last Admin: 08/14/22 08:44 Dose: 1 tab Documented By: DORYS Nystatin (Nystatin Cream 15 Gm Tube) 1 appl TOPICAL BID [facility]; Protocol Last Admin: 08/14/22 08:56 Dose: 1 appl Documented By: DORYS Ondansetron HCl (Ondansetron Hcl 4 Mg/2 Ml Vial) 4 mg IVPUSH Q8H PRN PRN Reason: Nausea and Vomiting Pharmacy Consult (Consult Rx Perform Med Rec) 1 each MISCELLANE ONCE PRN PRN Reason: Consult order Potassium Chloride (Potassium Chloride Er 20 Meq Tab.Er.Prt) 20 meq PO BID [facility] Last Admin: 08/14/22 08:43 Dose: 20 meq Documented By: DORYS Pregabalin (Pregabalin 100 Mg Capsule) 100 mg PO TID [facility] Last Admin: 08/14/22 08:43 Dose: 100 mg Documented By: DORYS Rivaroxaban (Rivaroxaban 20 Mg Tablet) 20 mg PO DAILY [facility] Last Admin: 08/14/22 08:44 Dose: 20 mg Documented By: DORYS Senna (Sennosides 8.6 Mg Tablet) 17.2 mg PO DAILY PRN PRN Reason: Constipation Sodium Biphosphate/Sodium Phosphate (Sodium Phosphate,[place]-Dibasic 133 Ml Enema) 118 ml [place] DAILY PRN PRN Reason: Constipation Sodium Chloride (0.9 % Sodium Chloride Flush 3 Ml Syringe) 3 ml IVFLUSH QSHIFT [facility] Last Admin: 08/14/22 08:45 Dose: 3 ml Documented By: DORYS Trazodone HCl (Trazodone Hcl 50 Mg Tablet) 50 mg PO BEDTIME [facility] Last Admin: 08/13/22 21:23 Dose: Not Given Documented By: AMANDA Non-Admin Reason: Physician Approved Labs 08/12/22 18:55 08/13/22 05:51 Labs: Laboratory Results - last 24 hr 08/13/22 08/13/22 08/13/22 11:02 17:37 20:32 POC Glucose 145 H 139 H 160 H 08/14/22 07:34 POC Glucose 166 H Microbiology Microbiology Results: Microbiology 08/12/22 18:57 Blood Culture - Preliminary Blood - Venous No growth after 24 hours. 08/12/22 18:55 Blood Culture - Preliminary Blood - Venous No growth after 24 hours. Assessment and Plan (1) Transaminitis: Status: Acute (2) Acute respiratory failure with hypoxia: Status: Acute (3) CHF exacerbation: Status: Acute Plan 76-year-old female with history of recurrent UTIs, presents [facility] the hospital [facility] with altered mental status as well as hypoxia # Acute sepsis d/t PNA, and UTI, culture pending -continue Ceftriaxone and Azithro # metabolic encephalopathy--d/t UTi, treat underlying cause, overall better # acute hypoxic respiratory failure d/t PNA, CHF--presently not hypOxic, 96 on RA # Acute diastolic CHF, with mild exacerbation. Stop IV Lasix and change to PO. No indication for cardiology eval at this time # Transaminitis - abdomen ultrasound shows possible gallstones and sludge in the gallbladder - abdominal pelvic CT penumobilia, cholelithiasis. Abx as above, will ask surgery to opined on pneumobilia # Persistent AFib -continue Metoprolol and xarelto DVT prophylaxis: Xarelto need for inpatient: sepsis, heart failure on IV diuretics, IV Abx and monitoring response Time Spent With Patient Time: Total time managing care of this patient today ____ minutes. Quality Stroke Does the patient have a stroke diagnosis?: No VTE Prior VTE?: No VTE Risk Level:: Medical - moderate - high VTE Device Contraindication: Treatment Not Indicated VTE Drug Contraindication: N/A - Med Ordered
[2022-08-14 09:46] LABS: Hematocrit 32.9 % (37.0-47.0); Hemoglobin 10.8 g/dl (12.0-16.0); Mean Corpuscular HGB Conc 32.8 g/dl (31.0-35.0); Mean Corpuscular Hemoglobin 32.2 pg (27.0-33.0); Mean Corpuscular Volume 98.2 fL (80.0-98.0); Mean Platelet Volume 9.8 fL (9.4-12.3); Platelet Count 214 X10*3/uL (160-400); Red Blood Count 3.35 X10*6/uL (4.20-5.50); Red Cell Distribution Width 13.3 % (11.0-16.0); White Blood Count 7.3 X10*3/uL (4.8-10.8)
[2022-08-14 10:33] LABS: Alanine Aminotransferase 36 U/L (0-31); Albumin Level 3.3 g/dL (3.5-5.0); Alkaline Phosphatase 136 U/L (39-117); Anion Gap 17 (12-20); Aspartate Amino Transferase 26 U/L (5-31); Bilirubin Direct 0.3 mg/dL (0.0-0.5); Blood Urea Nitrogen 20 mg/dL (9-16); Calcium 8.3 mg/dL (8.4-10.2); Carbon Dioxide 23 mmol/L (22-29); Chloride 106 mmol/L (96-108); Creatinine Clr Calc Pharmacy 68.3; Estimated Glomerular Filt Rate > 60; Glucose Random 251 mg/dL (60-115); Potassium 4.2 mmol/L (3.3-5.1); Sodium 142 mmol/L (135-145)
[2022-08-14 11:26] LABS: Glucose, Whole Blood 223 mg/dL (60-115)
[2022-08-14 16:20] LABS: Glucose, Whole Blood 190 mg/dL (60-115)
[2022-08-14] MEDS: cefTRIAXone sodium 1 GM in 0.9 % Sodium Chloride 50 ML IV (17:52)
[2022-08-14 20:35] LABS: Glucose, Whole Blood 149 mg/dL (60-115)
[2022-08-14] MEDS: Atorvastatin Calcium 10 MG TABLET PO (22:48)
[2022-08-14] MEDS: Azithromycin 500 MG in 0.9 % Sodium Chloride 250 ML 250 MG IV (22:48)
[2022-08-14] MEDS: traZODone HCL 50 MG TABLET PO (22:49)
[2022-08-14] MEDS: Insulin Glargine,Hum.rec.anlog 100 UNIT/ML 10 ML VIAL 20 UNIT SUBCUT (22:49)
[2022-08-14] MEDS: Mirtazapine 7.5 MG TABLET PO (22:50)
[2022-08-15] MEDS: metroNIDAZOLE/NS 500 MG/100 ML PIGGYBACK 100 MG IV ×2 (00:46→06:08)
[2022-08-15 04:00] VITALS: BP 112/61; PULSE 92; RESP 20; TEMP 36.7; O2SAT 94
[2022-08-15 07:17] VITALS: BP 138/59; PULSE 100; RESP 14; TEMP 36.2; O2SAT 95
[2022-08-15 07:53] LABS: Glucose, Whole Blood 133 mg/dL (60-115)
[2022-08-15] MEDS: Rivaroxaban 20 MG TABLET PO (08:35)
[2022-08-15] MEDS: metFORMIN HCl 500 MG TABLET PO (08:35)
[2022-08-15] MEDS: Multivitamin TABLET 1 TAB PO (08:35)
[2022-08-15] MEDS: Escitalopram Oxalate 10 MG TABLET PO (08:35)
[2022-08-15] MEDS: amLODIPine Besylate 10 MG TABLET PO (08:35)
[2022-08-15] MEDS: Pregabalin 100 MG CAPSULE PO ×2 (08:35→17:04)
[2022-08-15] MEDS: clonazePAM 1 MG TABLET PO (08:35)
[2022-08-15] MEDS: Potassium Chloride ER 20 MEQ TAB.ER.PRT PO (08:35)
[2022-08-15] MEDS: Metoprolol Tartrate 50 MG TABLET PO (08:35)
[2022-08-15] MEDS: Nystatin Cream 15 GM TUBE 1 APPL TOPICAL (08:36)
[2022-08-15] MEDS: 0.9 % Sodium Chloride Flush 3 ML SYRINGE IVFLUSH ×2 (08:36→17:04)
--- NOTE | 2022-08-15 09:52 | PM.CNGS ---
History of Present Illness Consult details Consult date: 08/15/22 Requesting physician: Katie Moreno Narrative: 76-year-old female patient with a previous history of hypertension, hyperlipidemia, diabetes mellitus, CAD, CHF, AF, DVT on Xarelto presenting presenting to the emergency department on 08/12/2022 with confusion and hypoxia. She has a previous history of acute cholecystitis due to cholelithiasis and was treated with cholecystostomy tube in December 2021. She tolerated this well and the tube was subsequently removed prior to discharge. She underwent ERCP at that time with removal of several large gallstones from the common bile duct. She underwent a sphincterotomy prior to stone removal. A CT abdomen and pelvis obtained on the current admission reveals a small amount of gas in the liver felt to be pneumobilia. Gallstones are noted within the gallbladder without significant surrounding inflammation. No biliary ductal dilatation is identified. Surgical consultation was requested for management of the pneumobilia. Review of Systems Review of Systems: Yes Unobtainable due to mental status Neurologic: Reports confusion Psychiatric: Psychiatric: Reports confusion PMFSH Past Medical History Medical History Afib Bacteremia due to Gram-negative bacteria DVT, bilateral lower limbs Hypercholesterolemia Lumbar degenerative disc disease Persistent atrial fibrillation Recurrent UTI Type 2 diabetes mellitus with hyperglycemia Family History Family History Father Diabetes Heart disease Mother Heart disease Son Opiate addiction Surgical History Surgical History History of lumpectomy of right breast History of tubal ligation Social History Social History Household Members: Children Household Members Other:: home with daughter Housing: Unknown / Unable to assess Do you presently have visiting nurse or other home services: No Unable to assess alcohol history related to: Unable to respond Alcohol intake: unknown Patient Tobacco Use Status: Never used Tobacco e-Cigarette/Vaping Use: Never Used Second Hand Smoke Exposure: No Advance Directives Date on File: 01/09/21 service: No Current occupational status: retired Cognitive needs: Yes (Electric Wheel Chair) Hearing needs: Yes (Earring Aids) Vision needs: Yes (Glasses) Meds Allergies Allergy/AdvReac Type Severity Reaction Status Date / Time Iodinated Contrast Media Allergy Severe THROAT Verified 12/29/21 09:41 [IV Dye, Iodine Containing CLOSES Contrast ] UP/SWELLIN iodine [IODINE] Allergy Severe ANAPHYLAXIS Verified 12/29/21 09:41 sulfamethoxazole Allergy Intermediate rash face Verified 10/17/21 10:17 [From Bactrim] trimethoprim [From Bactrim] Allergy Intermediate rash face Verified 10/17/21 10:17 quetiapine [From SEROQUEL] Allergy Unknown SWELLING Verified 10/17/21 10:17 apixaban [From Eliquis] AdvReac Intermediate Diarrhea Verified 10/17/21 10:17 amoxicillin [Augmentin] AdvReac Unknown Diarrhea Verified 12/29/21 09:45 clavulanic acid [Augmentin] AdvReac Unknown Diarrhea Verified 12/29/21 09:45 lisinopril [LISINOPRIL] AdvReac Unknown Cough Verified 12/29/21 09:45 prednisone [PREDNISONE] AdvReac Unknown INCREASE Verified 12/29/21 09:41 BLOOD PRESSURE Active Medications: Current Medications Acetaminophen (Acetaminophen 325 Mg Tablet) 650 mg PO Q6H PRN PRN Reason: Pain, Mild (Pain Scale 1-3) Acetaminophen (Acetaminophen 325 Mg Tablet) 650 mg PO Q4H PRN PRN Reason: Fever Or Pain Albuterol Sulfate (Albuterol Sulfate 90 Mcg 8 Gm Inhaler) 2 puff INHALE Q6H PRN PRN Reason: Shortness Of Breath Or Wheezing Amlodipine Besylate (Amlodipine Besylate 10 Mg Tablet) 10 mg PO DAILY DANELLE; Protocol Last Admin: 08/15/22 08:35 Dose: 10 mg Atorvastatin Calcium (Atorvastatin Calcium 10 Mg Tablet) 10 mg PO BEDTIME [facility] Last Admin: 08/14/22 22:48 Dose: 10 mg Bisacodyl (Bisacodyl 10 Mg Supp.Rect) 10 mg NM DAILY PRN PRN Reason: Constipation Clonazepam (Clonazepam 1 Mg Tablet) 1 mg PO BID [facility] Last Admin: 08/15/22 08:35 Dose: 1 mg Dextrose (Dextrose 50 % 25 Gm/50 Ml Syringe) 25 gm IVPUSH Q15M PRN; Protocol PRN Reason: per Hypoglycemia Standing Ord. Dextrose (Dextrose 50 % 25 Gm/50 Ml Syringe) 25 gm IVPUSH Q15M PRN; Protocol PRN Reason: per Hypoglycemia Standing Ord. Docusate Sodium (Docusate Sodium 100 Mg Capsule) 100 mg PO DAILY PRN PRN Reason: Constipation Escitalopram Oxalate (Escitalopram Oxalate 10 Mg Tablet) 10 mg PO DAILY [facility] Last Admin: 08/15/22 08:35 Dose: 10 mg Glucose (Glucose Gel 15 Gm Gel..Gram.) 15 gm PO Q15M PRN; Protocol PRN Reason: per Hypoglycemia Standing Ord. Glucose (Glucose Gel 15 Gm Gel..Gram.) 15 gm PO Q15M PRN; Protocol PRN Reason: per Hypoglycemia Standing Ord. Ceftriaxone Sodium 1 gm/ (Sodium Chloride) 50 mls @ 100 mls/hr IV Q24H [facility] Last Infusion: 08/14/22 18:24 Dose: Infused Azithromycin 500 mg/ Sodium (Chloride) 250 mls @ 125 mls/hr IV Q24H [facility] Last Infusion: 08/14/22 23:57 Dose: Infused Metronidazole (Flagyl) 500 mg in 100 mls @ 100 mls/hr IV Q8H [facility] Last Infusion: 08/15/22 08:30 Dose: Infused Insulin Glargine (Insulin Glargine,Hum.Rec.Anlog 100 Unit/Ml 10 Ml Vial) 20 unit SUBCUT BEDTIME [facility] Last Admin: 08/14/22 22:49 Dose: 20 unit Insulin Human Lispro (Insulin Lispro 100 Unit/Ml 3 Ml Vial) 0 unit SUBCUT QIDACHS [facility]; Protocol Last Admin: 08/15/22 08:05 Dose: Not Given Insulin Human Lispro (Insulin Lispro 100 Unit/Ml 3 Ml Vial) 0 unit SUBCUT QIDACHS [facility]; Protocol Last Admin: 08/15/22 08:04 Dose: Not Given Loperamide HCl (Loperamide Hcl 2 Mg Capsule) 2 mg PO Q6H PRN PRN Reason: Loose Stool Metformin HCl (Metformin Hcl 500 Mg Tablet) 500 mg PO BID [facility] Last Admin: 08/15/22 08:35 Dose: 500 mg Metoprolol Tartrate (Metoprolol Tartrate 50 Mg Tablet) 50 mg PO BID [facility]; Protocol Last Admin: 08/15/22 08:35 Dose: 50 mg Mirtazapine (Mirtazapine 7.5 Mg Tablet) 7.5 mg PO BEDTIME [facility] Last Admin: 08/14/22 22:50 Dose: 7.5 mg Multivitamins/Vitamin C (Multivitamin Tablet) 1 tab PO DAILY [facility] Last Admin: 08/15/22 08:35 Dose: 1 tab Nystatin (Nystatin Cream 15 Gm Tube) 1 appl TOPICAL BID [facility]; Protocol Last Admin: 08/15/22 08:36 Dose: 1 appl Ondansetron HCl (Ondansetron Hcl 4 Mg/2 Ml Vial) 4 mg IVPUSH Q8H PRN PRN Reason: Nausea and Vomiting Pharmacy Consult (Consult Rx Perform Med Rec) 1 each MISCELLANE ONCE PRN PRN Reason: Consult order Potassium Chloride (Potassium Chloride Er 20 Meq Tab.Er.Prt) 20 meq PO BID [facility] Last Admin: 08/15/22 08:35 Dose: 20 meq Pregabalin (Pregabalin 100 Mg Capsule) 100 mg PO TID [facility] Last Admin: 08/15/22 08:35 Dose: 100 mg Rivaroxaban (Rivaroxaban 20 Mg Tablet) 20 mg PO DAILY [facility] Last Admin: 08/15/22 08:35 Dose: 20 mg Senna (Sennosides 8.6 Mg Tablet) 17.2 mg PO DAILY PRN PRN Reason: Constipation Sodium Biphosphate/Sodium Phosphate (Sodium Phosphate,Toombs-Dibasic 133 Ml Enema) 118 ml NM DAILY PRN PRN Reason: Constipation Sodium Chloride (0.9 % Sodium Chloride Flush 3 Ml Syringe) 3 ml IVFLUSH QSHIFT [facility] Last Admin: 08/15/22 08:36 Dose: 3 ml Trazodone HCl (Trazodone Hcl 50 Mg Tablet) 50 mg PO BEDTIME [facility] Last Admin: 08/14/22 22:49 Dose: 50 mg Home Medications Medication Instructions Recorded Confirmed Last Taken Type albuterol sulfate 90 mcg/actuation 2 puff inhalation Q6H PRN 06/18/20 08/12/22 10/17/21 History aerosol inhaler Shortness Of Breath Or Wheezing acetaminophen 325 mg tablet 650 mg PO Q4H PRN Fever Or Pain 10/17/21 08/12/22 12/24/21 History loperamide 2 mg tablet 2 mg PO Q6H PRN Loose Stool 10/17/21 08/12/22 10/26/21 History multivitamin with minerals 1 tab PO DAILY 10/17/21 08/12/22 12/24/21 History trazodone 50 mg tablet 50 mg PO BEDTIME 10/17/21 08/13/22 12/24/21 History furosemide 20 mg tablet 1 tab PO DAILY 12/25/21 08/13/22 12/24/21 History mirtazapine 7.5 mg tablet 7.5 mg PO BEDTIME 12/25/21 08/13/22 12/24/21 History potassium chloride 20 mEq 1 tab PO BID 12/25/21 08/13/22 12/25/21 History tablet,extended release(part/cryst) rivaroxaban 20 mg tablet (Xarelto) 1 tab PO DAILY 12/25/21 08/13/22 12/24/21 History insulin glargine 100 unit/mL (3 20 unit subcut BEDTIME 08/12/22 08/13/22 Unknown History mL) subcutaneous pen (Lantus Solostar U-100 Insulin) metoprolol tartrate 50 mg tablet 50 mg PO BID 08/12/22 08/13/22 Unknown History amlodipine 10 mg tablet 1 tab PO DAILY 08/13/22 08/13/22 Unknown History Physical Exam Vital Signs: Vital Signs: Last Vital Signs Temp 97.1 F 08/15/22 07:17 Pulse 100 08/15/22 07:17 Resp 14 08/15/22 07:17 BP 138/59 L 08/15/22 07:17 Pulse Ox 95 08/15/22 07:17 O2 Del Method 08/15/22 07:17 O2 Flow Rate 2 08/13/22 05:04 Oxygen Flow Rate 2 08/12/22 18:31 BMI result Body Mass Index 28.3 Const: General: no acute distress, awake and confusion Nutritional Appearance: well nourished Orientation/consciousness: confusion Eyes: Sclerae: sclerae normal EOM: EOMs intact bilaterally Resp: Effort & Inspection: normal respiratory effort Auscultation: clear to auscultation bilaterally GI: Other: Negative Feng sign Inspection: Yes normal to inspection Palpation (GI): Soft to palpation, nontender, no guarding and not rigid Auscultation: normal bowel sounds Rectal Exam - Female: deferred Skin: General skin exam: no rashes or lesions noted Neuro: General: confusion Results Labs 08/14/22 09:31 08/14/22 09:31 Labs: Abnormal lab results 08/14/22 08/14/22 08/14/22 Range/Units 09:31 10:43 16:17 BUN 20 H (9-16) mg/dL POC Glucose 223 H 190 H (60-115) mg/dL Random Glucose 251 H (60-115) mg/dL Calcium 8.3 L (8.4-10.2) mg/dL ALT 36 H (0-31) U/L Alkaline Phosphatase 136 H (39-117) U/L Albumin 3.3 L (3.5-5.0) g/dL 08/14/22 08/15/22 Range/Units 20:29 07:16 BUN (9-16) mg/dL POC Glucose 149 H 133 H (60-115) mg/dL Random Glucose (60-115) mg/dL Calcium (8.4-10.2) mg/dL ALT (0-31) U/L Alkaline Phosphatase (39-117) U/L Albumin (3.5-5.0) g/dL BMP 08/14/22 09:31 Sodium 142 Potassium 4.2 Chloride 106 Carbon Dioxide 23 BUN 20 H Creatinine 0.81 Calcium 8.3 L Liver Function 08/14/22 Range/Units 09:31 Total Bilirubin 1.0 (0.0-1.0) mg/dL Direct Bilirubin 0.3 (0.0-0.5) mg/dL AST 26 (5-31) U/L ALT 36 H (0-31) U/L Alkaline Phosphatase 136 H (39-117) U/L Albumin 3.3 L (3.5-5.0) g/dL Urine 08/12/22 Range/Units 22:36 Urine Color Dark Yellow Urine Appearance Turbid Urine pH 5.0 (5.0-9.0) Ur Specific [place] 1.020 (1.005-1.025) Urine Protein 30 (1+) H (Neg-Trace) mg/dL Urine Glucose (UA) Negative (Negative) mg/dL All other labs normal. Assessment and Plan (1) Cholelithiasis: Status: Acute (2) Pneumobilia: Status: Acute Plan 76-year-old female with a prior history of acute cholecystitis and choledocholithiasis treated with percutaneous cholecystostomy as well as ERCP, sphincterotomy, common bile duct stone removal in December 2021. Patient currently was admitted for hypoxia and confusion and found on CT to have gallstones as well as pneumobilia. The pneumobilia is an expected results of the previous sphincterotomy. There is no evidence of ductal dilatation at this time in the gallbladder actually looks improved from her previous scans. No surgical intervention is required at this time. Time Spent With Patient Time: Total time managing care of this patient today ____ minutes. Procedures Date of Service Date of Service: 08/15/22
[2022-08-15 11:38] VITALS: BP 102/55; PULSE 88; RESP 16; TEMP 36; O2SAT 97
[2022-08-15 11:43] LABS: Glucose, Whole Blood 231 mg/dL (60-115)
[2022-08-15] MEDS: Insulin Lispro 100 UNIT/ML 3 ML VIAL SUBCUT (12:14)
--- NOTE | 2022-08-15 15:33 | MHC.CM.PN ---
Per ALYSSA/Katie, Patient is medically cleared for dc to return to LTC. Patient will return to LTC @ [facility] today at 5 PM, via [facility]. Primary contact/Son/Yonis @ [phone] was unreachable by phone; CM spoke with Son/Mitul @ [phone] and informed him of the dc plan (he is in agreement). Last IMM addressed 08/13/2022.
--- NOTE | 2022-08-15 15:37 | P.DS_ITS ---
DS: Providers Provider Date of Service: 08/15/22 Date of admission: 08/12/22 21:26 Date of discharge: 08/15/22 Primary care physician: Jorje Perrin MD Consults: 08/15/22 08:00 Consult to General Surgery Routine Consulting Provider: Deon Cheng Reason for consultation: pneumobilia Has provider been notified: No Attending physician on discharge: Sofiya Garcia Discharging clinician: Katie Moreno DS: Diagnosis Discharge Diagnosis (1) Cholelithiasis: Status: Acute (2) Pneumobilia: Status: Acute (3) Sepsis: Status: Acute (4) Acute metabolic encephalopathy: Status: Acute (5) Acute UTI: Status: Acute DS: Summary Hospital Course Hospital Course: From H&P on day of admission this is a 76-year-old female with past medical history of persistent AFib on Xarelto, history of DVT, HLD, recurrent UTIs,? KRISHAN, presents the hospital from [facility] for increased confusion as well as hypoxia.? According to report from EMS patient was found to be hypoxic satting in the 70s, was placed on 2 L of oxygen at [facility].? Patient is 97% on 3 L of oxygen at this time.? Patient is obtunded, wakes up to verbal stimuli, but does not answer questions when asked.? According to EMR as well as ED provider patient was sent to the hospital from [facility] after being found to be lethargic more than her baseline, ?unable to obtain review of system as patient is somnolent Vitals on arrival to the ED significant for a temp of 101.8 degrees, heart rate of 108, respiratory rate of? 30 Labs are significant for WBC count of 12.7, 12.7, hemoglobin of 11.9, hematocrit 34.8, total bili of 2.5, AST of 48, ALT of 41, alk-phos of 144 previously normal, troponin of 107 which is chronically elevated, BNP of 472, UA positive for leukocyte Estrace and WBC, COVID-19 RSV and influenza negative Imaging including? chest CT shows elevated right hemidiaphragm, minimally to lactase is at the right lung base in the right middle and lower lobes, tiny right pleural effusion, enlarged heart and small pericardial effusion Abdominal ultrasound shows gallstone and sludge in the gallbladder Acute sepsis d/t PNA, and UTI treated with IV Ceftriaxone and Azithro. urine culture grew pansensitive E coli. Blood cultures have remained negative. patient has been afebrile, has remained on room air with no shortness of breath. metabolic encephalopathy Related to underlying infection. Appears to be back to baseline acute hypoxic respiratory failure d/t PNA, CHF breathing improved. She was weaned off supplemental oxygen. presently not hypOxic, 97 on RA Acute diastolic CHF, with mild exacerbation. Initially treated with IV Lasix, transitioned back to oral home Lasix Transaminitis abdomen ultrasound shows possible gallstones and sludge in the gallbladder. abdominal pelvic CT? penumobilia, cholelithiasis. she was seen in consultation by General surgery pneumobilia thought to be secondary to previous ERCP. Gallbladder looks improved prior to previous scans. No surgical intervention required. Patient has no abdominal pain is tolerating regular diet at this time. Recommend low fat diet moving forward. Transaminases overall trending down. Alkaline phosphatase remains slightly elevated at 136, can repeat in a week or so to ensure continues to trend down. Persistent AFib continue Metoprolol and xarelto Time Spent with Patient Time attestation: Total time managing care of this patient today ____ minutes. Discharge coordination time: Greater than 30 minutes Quality: Safe Use of Opioids Does Pt have an Active Cancer Diagnosis on the Problem List?: No Quality: Stroke Does the patient have a stroke diagnosis?: No Physical Exam Vital Signs: Vital Signs: Last Vital Signs Temp 96.8 F 08/15/22 11:38 Pulse 88 08/15/22 11:38 Resp 16 08/15/22 11:38 BP 102/55 L 08/15/22 11:38 Pulse Ox 97 08/15/22 11:38 O2 Del Method 08/15/22 11:38 O2 Flow Rate 2 08/13/22 05:04 Oxygen Flow Rate 2 08/12/22 18:31 BMI result Body Mass Index 28.3 Const: General: cooperative, comfortable, alert and awake Orientation/consciousness: oriented to person and oriented to place Resp: Effort & Inspection: normal respiratory effort, able to speak in complete sentences, no respiratory distress and no use of accessory muscles Cardio: Rate: regular rate GI: Inspection: No distended Palpation (GI): Soft to palpation Neuro: General: oriented to person and oriented to place Extrem: Other: trace leg edema DS: Data Data Completed and Pending Completed studies during hospitalization [Text1]: Procedures Drainage of Gallbladder with Drainage Device, Percutaneous Approach (12/25/21) Extirpation of Matter from Common Bile Duct, Via Natural or Artificial Opening Endoscopic (12/25/21) Insertion of Infusion Device into Right Basilic Vein, Percutaneous Approach (12/25/21) Transfusion of Nonautologous Frozen Plasma into Peripheral Vein, Percutaneous Approach (12/25/21) Labs on day of discharge: Laboratory Results - last 24 hr 08/14/22 08/14/22 08/15/22 16:17 20:29 07:16 POC Glucose 190 H 149 H 133 H 08/15/22 10:54 POC Glucose 231 H Preliminary micro results at discharge 08/12/22 18:57 Blood Culture - Preliminary Blood - Venous No growth after 48 hours. 08/12/22 18:55 Blood Culture - Preliminary Blood - Venous No growth after 48 hours. Discharge Plan Discharge Patient Disposition: er [facility] Discharge Diagnosis: sepsis pneumonia uti encephalopathy Referrals: [facility] [place] [Outside] - 1 Week Jorje Perrin MD [Primary Care Provider] - 1 Week Discharge Medications: New azithromycin 250 mg tablet 250 mg PO DAILY 3 Days Qty: 3 0RF cefuroxime axetil 500 mg tablet 500 mg PO BID 4 Days Qty: 8 0RF Continued albuterol sulfate 90 mcg/actuation HFA aerosol inhaler 2 puff inhalation Q6H PRN (Reason: Shortness Of Breath Or Wheezing) metformin 500 mg tablet 500 mg PO BID Qty: 180 2RF pregabalin 100 mg capsule 100 mg PO TID 30 Days Qty: 90 3RF simvastatin 10 mg tablet 10 mg PO BEDTIME Qty: 90 3RF clonazepam 1 mg tablet 1 mg PO BID 30 Days Qty: 60 0RF escitalopram oxalate 10 mg tablet 10 mg PO DAILY 90 Days Qty: 90 0RF acetaminophen 325 mg Tablet 650 mg PO Q4H PRN (Reason: Fever Or Pain) loperamide 2 mg Tablet 2 mg PO Q6H PRN (Reason: Loose Stool) multivitamin with minerals Tablet 1 tab PO DAILY trazodone 50 mg tablet 50 mg PO BEDTIME metoprolol tartrate 50 mg tablet 50 mg PO BID insulin glargine [Lantus Solostar U-100 Insulin] 100 unit/mL (3 mL) insulin pen 20 unit subcut BEDTIME amlodipine 10 mg tablet 1 tab PO DAILY potassium chloride 20 mEq tablet,ER particles/crystals 1 tab PO BID furosemide 20 mg tablet 1 tab PO DAILY mirtazapine 7.5 mg Tablet 7.5 mg PO BEDTIME Xarelto 20 mg tablet 1 tab PO DAILY No Action (DME) Pull ups Extra LArge See Rx Instructions .Route .MEDSUPPLY Qty: 120 11RF Rx Instructions: As directed Discharge Orders: Discharge Order (Routine); Ordered 08/15/22 Ordered By: Katie Moreno Diet: Advance to usual diet Activity on Discharge: As tolerated Stand Alone Forms: Patient Portal Discharge page Care Plan Goals: see below Health Concerns: sepsis related to UTI/pneumonia encephalopathy transaminitis Plan of Treatment: complete course of antibiotics for UTI, pneumonia repeat alk phos in the next 1-2 weeks no change in baseline medications Assessment: see discharge summary
[2022-08-15 15:54] VITALS: BP 127/76; PULSE 85; RESP 18; TEMP 36.3; O2SAT 98
[2022-08-15 16:24] LABS: COVID-19 Test Negative (Negative); IDNOW Serial# 55D5AD1C
[2022-08-15 16:44] LABS: Glucose, Whole Blood 105 mg/dL (60-115)
== END 2022-08-15 17:45 | DRG 871 ==
LOC: HO.ED 22:54 → HO.EDOVER 23:03 → HO.IMC 08-13 07:55
PROVIDERS: Internal Medicine; Physician Assistant; Admitting Provider Internal Medicine; Emergency Provider Emergency Medicine Emergency Medical Services; PCP Family Medicine; Visit Provider Physician Assistant Medical
DX: A41.9 Sepsis, unspecified organism (principal); G93.41 Metabolic encephalopathy; J96.01 Acute respiratory failure with hypoxia; I50.31 Acute diastolic (congestive) heart failure; J18.9 Pneumonia, unspecified organism; N39.0 Urinary tract infection, site not specified; I48.19 Other persistent atrial fibrillation; J98.11 Atelectasis; K80.00 Calculus of gallbladder with acute cholecystitis without obstruction; I25.10 Atherosclerotic heart disease of native coronary artery without angina pectoris; B96.20 Unspecified Escherichia coli [E. coli] as the cause of diseases classified elsewhere; F41.1 Generalized anxiety disorder; K83.8 Other specified diseases of biliary tract; Z87.440 Personal history of urinary (tract) infections; Z20.822 Contact with and (suspected) exposure to COVID-19; Z86.711 Personal history of pulmonary embolism; Z91.041 Radiographic dye allergy status; Z88.0 Allergy status to penicillin; Z88.1 Allergy status to other antibiotic agents; Z88.2 Allergy status to sulfonamides; Z88.8 Allergy status to other drugs, medicaments and biological substances; Z79.4 Long term (current) use of insulin; Z79.01 Long term (current) use of anticoagulants; Z79.84 Long term (current) use of oral hypoglycemic drugs; Z79.899 Other long term (current) drug therapy
CPT/HCPCS: 36415; 71045; 71250; 74176; 76705; 80048; 80053; 80076; 81001; 82947; 83605; 83690; 83735; 83880; 84484; 85025; 85027; 87040; 87086; 87088; 87186; 87502; 87635; 93005; 99285; J0456; J0696; J1940

== ENCOUNTER 2024-01-16 16:15 | Inpatient (IN) | payer MEDICARE, MEDICAID, SELFPAY ==
[2024-01-16] VITALS (9 sets, daily range): BP systolic 71–116; BP diastolic 45–59; PULSE 102–129; RESP 14–29; TEMP 36.8–38.7; O2SAT 94–100
--- NOTE | ~2024-01-16 | CT_ITS ---
EXAMINATION: CT CHEST WITHOUT CONTRAST CLINICAL INFORMATION: concern for aspiration, cough, dyspnea. COMPARISON: Lung bases on the 08/13/2022 CT scan. TECHNIQUE: Multidetector volumetric imaging was performed from the thoracic inlet through the lung bases without contrast. Sagittal and coronal reformatted images were obtained on the technologist workstation. Soft tissue and lung algorithms evaluated. Thick slab MIP images were performed to increase nodule conspicuity. This CT examination was performed using dose optimization techniques as appropriate, variously including the following: *Automated exposure control *Adjustment of mA and/or kV according to patient size (this includes techniques or standardized protocols for targeted exams where dose is matched to indication/reason for exam; i.e. extremities or head) *Use of iterative reconstruction technique DLP: 318 mGy-cm. FINDINGS: LUNG: Dense consolidation with air bronchograms in the dependent right lower lobe. Milder changes more likely due to atelectasis at the contralateral left lung base. MEDIASTINUM: Vascular calcification within the aorta and coronary vessels. Dense mitral annular calcifications. CORONARY ARTERY CALCIFICATION: Present PERICARDIUM/PLEURA: No significant effusion. No pleural mass or thickening. THYROID/VISUALIZED LOWER NECK: Unremarkable. CHEST WALL/AXILLA: Unremarkable. VISUALIZED UPPER ABDOMEN: Small volume of abdominal ascites noted BONES: Unremarkable CT/CT chest wo IV con IMPRESSION: Dense consolidation with air bronchograms in the dependent right lower lobe. Infectious etiology would be favored with this appearance. Milder changes at the contralateral left lung base more likely due to atelectasis.
--- NOTE | ~2024-01-16 | CT_ITS ---
EXAMINATION: CT head/brain wo IV con CLINICAL INFORMATION: Reason for Exam change in mental status COMPARISON: CT head without contrast 09/28/2021 TECHNIQUE: Contiguous axial imaging was performed from the skull base to vertex without intravenous contrast. Sagittal and coronal reformatted images were obtained. This CT examination was performed using dose optimization techniques as appropriate, variously including the following: * Automated exposure control * Adjustment of mA and/or kV according to patient size (this includes techniques or standardized protocols for targeted exams where dose is matched to indication/reason for exam; i.e. extremities or head) Use of iterative reconstruction technique DLP: 1001.73 mGy-cm FINDINGS: No acute osseous or soft tissue abnormality. The mastoid air cells and visualized portions of the paranasal sinuses are well aerated. There is no evidence of acute intracranial hemorrhage or territorial infarction. No abnormal mass effect or midline shift is seen. Christianson to white matter differentiation is well preserved. No extra-axial fluid collections are identified. No hydrocephalus. Proportional prominence of the ventricles and sulcal spaces related to volume loss. Patchy periventricular and deep white matter hypoattenuation is consistent with mild to moderate small vessel ischemic changes. Chronic hypodensities involving the bilateral globi pallidi which may reflect sequela of prior toxic/metabolic injury. CT/CT head/brain wo IV con IMPRESSION: No acute intracranial abnormality including hemorrhage, mass effect, hydrocephalus, or acute territorial edematous infarction.
--- NOTE | 2024-01-16 16:25 | ECG_ITS ---
Test Reason : AMS Blood Pressure : / mmHG Vent. Rate : 104 BPM Atrial Rate : 000 BPM P-R Int : 000 ms QRS Dur : 086 ms QT Int : 320 ms P-R-T Axes : 000 -29 079 degrees QTc Int : 420 ms Atrial fibrillation with rapid ventricular response Abnormal ECG When compared with ECG of 13-AUG-2022 03:09, Afib present now Criteria for Septal infarct are no longer Present Referred By: Lila Mariano Electronically Signed By:Edison Maddox
--- NOTE | 2024-01-16 16:35 | ED_ITS ---
HPI - Altered Mental Status General Chief Complaint: Altered Mental Status Stated Complaint: INCREASED LETHARGY Source: EMS and old records reviewed Mode of arrival: EMS Limitations: altered mental status History of Present Illness ED Provider: JENNIFER GREWAL narrative: 78 yo female with PMH of afib on xarelto, DVT, HLD, recurrent UTI E. Coli, Klebsiella, Vanco S enterococcus, KRISHAN, DM, schizoaffective has a MOLST that states FULL CODE, respiratory failure, - but not on home O2 EMS reports Sharon reported hypoxia they state called for AMS unsure how long she has been on azithromycin as of 01/12 for pneumonia then received IM ceftriaxone 1G today for either pneumonia or UTI. She was tachycardic and only saying one or two confusing words to them. She cannot provide much history on arrival opens eyes to voice. Daughter Autumn states - she was told she had pneumonia and UTI. Patient was refusing to eat or drink anything. No timeline given. Last couple of weeks has lost 8 lbs. Unsure of her code status. MD complaint: decreased responsiveness and weakness Onset (ago): unknown Timing confirmed by: caregiver Severity: severe Consistency of symptoms: constant Context: other (recent illness with pneumonia and UTI) Associated symptoms: fever, chills, loss of appetite, malaise and weakness Treatments prior to arrival: IV fluid, oxygen and other (azithromycin 01/12 and ceftriaxone IM 1G today) Related Data Home Medications ?Medication ?Instructions ?Recorded ?Confirmed albuterol sulfate 90 mcg/actuation 2 puff inhalation Q6H PRN 06/18/20 01/16/24 aerosol inhaler Shortness Of Breath Or Wheezing acetaminophen 325 mg tablet 650 mg PO Q4H PRN Fever Or Pain 10/17/21 01/16/24 trazodone 50 mg tablet 50 mg PO BEDTIME 10/17/21 01/16/24 furosemide 20 mg tablet 1 tab PO DAILY 12/25/21 01/16/24 mirtazapine 7.5 mg tablet 7.5 mg PO BEDTIME 12/25/21 01/16/24 potassium chloride 20 mEq 1 tab PO BID 12/25/21 01/16/24 tablet,extended release(part/cryst) rivaroxaban 20 mg tablet (Xarelto) 1 tab PO DAILY@1700 12/25/21 01/16/24 metoprolol tartrate 50 mg tablet 50 mg PO BID 08/12/22 01/16/24 albuterol sulfate 2.5 mg/3 mL 2.5 mg inhalation Q4H PRN SOB 01/16/24 01/16/24 (0.083 %) solution for nebulization bisacodyl 10 mg rectal suppository 10 mg PA DAILY PRN Constipation 01/16/24 01/16/24 clonazepam 0.5 mg tablet 0.5 mg PO BID 01/16/24 01/16/24 insulin aspart U-100 100 unit/mL 1 sliding scale dose subcut TIDAC 01/16/24 01/16/24 subcutaneous solution (Novolog U-100 Insulin aspart) insulin glargine 100 unit/mL (3 12 unit subcut BEDTIME 01/16/24 01/16/24 mL) subcutaneous pen (Basaglar KwikPen U-100 Insulin) magnesium oxide 400 mg PO BID 01/16/24 01/16/24 menthol 4 % topical gel (Biofreeze 1 appl topical BID 01/16/24 01/16/24 (menthol)) multivitamin,tx-minerals 1 tab PO DAILY 01/16/24 01/16/24 ondansetron HCl 4 mg tablet 4 mg PO Q6H PRN Nausea 01/16/24 01/16/24 pregabalin 150 mg capsule 150 mg PO TID 01/16/24 01/16/24 sennosides 8.6 mg tablet (senna) 17.2 mg PO DAILY PRN No BM in 2 01/16/24 01/16/24 Days sodium phosphates 19 gram-7 117 ml PA DAILY PRN Bowel 01/16/24 01/16/24 gram/118 mL enema (Enema) Management Previous Rx's ?Medication ?Instructions ?Recorded Pull ups Extra LArge #120 ea 02/12/21 metformin 500 mg tablet 500 mg PO BID #180 tabs 04/01/21 simvastatin 10 mg tablet 10 mg PO BEDTIME #90 tabs 08/27/21 escitalopram oxalate 10 mg tablet 10 mg PO DAILY 90 days #90 tabs 09/24/21 azithromycin 250 mg tablet 250 mg PO DAILY 3 days #3 tabs 08/15/22 Allergies Allergy/AdvReac Type Severity Reaction Status Date / Time Iodinated Contrast Media Allergy Severe THROAT Verified 01/16/24 16:26 [IV Dye, Iodine Containing CLOSES Contrast ] UP/SWELLIN iodine [IODINE] Allergy Severe ANAPHYLAXIS Verified 01/16/24 16:26 sulfamethoxazole Allergy Intermediate rash face Verified 01/16/24 16:26 [From Bactrim] trimethoprim [From Bactrim] Allergy Intermediate rash face Verified 01/16/24 16:26 quetiapine [From SEROQUEL] Allergy Unknown SWELLING Verified 01/16/24 16:26 apixaban [From Eliquis] AdvReac Intermediate Diarrhea Verified 01/16/24 16:26 amoxicillin [Augmentin] AdvReac Unknown Diarrhea Verified 01/16/24 16:26 clavulanic acid [Augmentin] AdvReac Unknown Diarrhea Verified 01/16/24 16:26 lisinopril [LISINOPRIL] AdvReac Unknown Cough Verified 01/16/24 16:26 prednisone [PREDNISONE] AdvReac Unknown INCREASE Verified 01/16/24 16:26 BLOOD PRESSURE Review of Systems 2 Review of Systems: ROS unable to be obtained due to altered mental status [facility] Past Medical History Attestation statement: The following information was validated with the patient. Source: old records reviewed Medical History Persistent atrial fibrillation Bacteremia due to Gram-negative bacteria Cholelithiasis DVT, bilateral lower limbs Type 2 diabetes mellitus with hyperglycemia Hypercholesterolemia Recurrent UTI Lumbar degenerative disc disease Afib Surgical History History of lumpectomy of right breast History of tubal ligation Family History Family History Father Diabetes Heart disease Mother Heart disease Son Opiate addiction Social History Social History Household Members: Children Household Members Other:: home with daughter Housing: Unknown / Unable to assess Do you presently have visiting nurse or other home services: No Unable to assess alcohol history related to: Unable to respond Alcohol intake: unknown Comment: bed close to RN station Patient Tobacco Use Status: Never used Tobacco e-Cigarette/Vaping Use: Never Used Second Hand Smoke Exposure: No Use of substances other than those prescribed or required for medical reasons: Unable to respond Advance Directives: Yes Advance Directives on File: Yes Advance Directives Date on File: 01/09/21 Do you have a plan to hurt others: No Plan Nutrition Risks: No Nutritional Risk service: No Current occupational status: retired Cognitive needs: Yes (Electric Wheel Chair) Hearing needs: Yes (Earring Aids) Vision needs: Yes (Glasses) Physical Exam ED Vital Signs: Vital Signs - 24 hr 01/16/24 16:25 01/16/24 16:34 01/16/24 18:04 Temperature 101.7 F H 99.3 F Pulse Rate 127 H 113 H Respiratory Rate 14 29 H Blood Pressure 116/59 L 110/56 L Pulse Oximetry 99 94 Oxygen Delivery Method Nasal Cannula Room Air Oxygen Flow Rate 2 01/16/24 18:46 01/16/24 19:10 Temperature Pulse Rate 129 H 118 H Respiratory Rate 18 18 Blood Pressure 98/47 L 107/55 L Pulse Oximetry 98 99 Oxygen Delivery Method Nasal Cannula Room Air Oxygen Flow Rate 2 BMI result Body Mass Index 30.0 Appearance: Lethargic not responding well Mo;d acute distress. Eyes: Pupils equal, round and reactive to light. ENT: Pharynx dry MM Neck: Normal inspection. Neck supple. CVS: irregular tachycardic heart rate and rhythm. Pulses normal. Respiratory: No respiratory distress. Breath sounds diminished in both bases with rhonchi. R base is much more diminished. Abdomen: Soft and does not grimace or appear uncomfortable with palpation Skin: Skin warm and dry. pale skin color. Poor skin turgor. Extremities: No lower extremity edema. Neuro: opens eyes to voice, mumbles, seems to localize to pain in all extremities. Course Course Course Narrative: 558pm delay in antibiotics due to difficult IV access Reevaluation(s) Reevaluation #1: more alert, BP trending up, IV steroids for severe pneumonia ordered Medications Administered Generic Name Dose Route Start Last Admin Trade Name Freq PRN Reason Stop Dose Admin Dextrose/Sodium Chloride 1,000 mls @ 100 mls/hr 01/16/24 20:00 01/16/24 20:50 D51/2ns IVCONT 100 mls/hr .Q10H DANELLE Administration Insulin Human Lispro 0 unit 01/16/24 21:00 01/16/24 20:51 Insulin Lispro 100 Unit/Ml 3 Ml Vial SUBCUT 2 unit QIDACHS DANELLE Administration Protocol Discontinued Medications Generic Name Dose Route Start Last Admin Trade Name Belia PRN Reason Stop Dose Admin Acetaminophen 650 mg 01/16/24 16:37 01/16/24 17:30 Acetaminophen Supp 650 Mg Supp.Rect PA 01/16/24 16:38 650 mg ONCE ONE Administration Lactated Ringer's 1,000 mls @ 999 mls/hr 01/16/24 16:24 01/16/24 18:15 Lr IV 01/16/24 17:24 Infused .Q1H1M ONE Infusion Cefepime HCl 2 gm/ Sodium 50 mls @ 100 mls/hr 01/16/24 16:24 01/16/24 17:53 Chloride IV 01/16/24 16:53 Infused ONCE ONE Infusion Vancomycin HCl 2,000 mg in 500 mls @ 250 mls/hr 01/16/24 16:37 01/16/24 21:00 Vancomycin/Ns IV 01/16/24 18:36 Infused ONCE ONE Infusion Calcium Gluconate 2 gm in 100 mls @ 50 mls/hr 01/16/24 17:54 01/16/24 21:00 Calcium Gluconate IV 01/16/24 19:53 Infused ONCE ONE Infusion Dextrose 250 mls @ 750 mls/hr 01/16/24 18:00 01/16/24 19:00 D10 IV 01/16/24 18:19 Infused Q15M ONE Infusion Lactated Ringer's 1,000 mls @ 999 mls/hr 01/16/24 19:02 01/16/24 22:00 Lr IV 01/16/24 20:02 Infused .Q1H1M ONE Infusion Lactated Ringer's 1,000 mls @ 999 mls/hr 01/16/24 20:00 01/16/24 22:32 Lr IV 01/16/24 21:00 Infused .Q1H1M DANELLE Infusion Insulin Human Regular 5 unit 01/16/24 17:59 01/16/24 18:35 Insulin Regular, Human 100 Unit/Ml 10 Ml Vial IVPUSH 01/16/24 18:00 5 unit ONCE ONE Administration Methylprednisolone Sodium Succinate 60 mg 01/16/24 19:15 01/16/24 19:48 Methylprednisolone Sod Succ 125 Mg/2 Ml Vial IVPUSH 01/16/24 19:16 60 mg ONCE ONE Administration Medical Decision Making Medical Decision Making MDM Narrative: 78 yo female with PMH of afib on xarelto, DVT, HLD, recurrent UTI E. Coli, Klebsiella, Vanco S enterococcus, KRISHAN, DM, schizoaffective has a MOLST that states FULL CODE, respiratory failure, - but not on home O2 here with lethargy, FTT, febrile, tachycardic currently per family and EMS on azithromycin and ceftriaxone for UTI and pneumonia given her presentation and VS will obtain labs, lactic acid, cultures start on cefepime and vancomycin. CT of head for ICH given xarelto use and CT chest for aspiration pneumonia. Differential Diagnosis Differential Diagnoses: The differential diagnosis associated with the presentation includes pneumonia, UTI, viral syndrome Admission/Observation Consideration of admission/observation: Escalation of care including admission/observation considered admit for further managemement and failed outpatient antibiotics Consult Healthcare Provider Management of the patient was discussed with: Hospitalist (will admit) Lab Data MDM Lab Attestation statement: I reviewed the patient's lab results. 01/16/24 16:55 01/16/24 16:55 Labs: Lab Results 01/16/24 01/16/24 01/16/24 Range/Units 16:54 16:55 16:57 WBC 16.1 H (4.8-10.8) X10*3/uL RBC 3.75 L (4.20-5.50) X10*6/uL Hgb 11.3 L (12.0-16.0) g/dl Hct 36.8 L (37.0-47.0) % MCV 98.1 H (80.0-98.0) fL MCH 30.1 (27.0-33.0) pg MCHC 30.7 L (31.0-35.0) g/dl RDW 14.8 (11.0-16.0) % Plt Count 325 D (160-400) X10*3/uL MPV 10.7 (9.4-12.3) fL Immature Gran % (Auto) 0.5 H (0.0-0.4) % Neut % (Auto) 87.6 H (45-73) % Lymph % (Auto) 7.5 L (20-40) % Cache % (Auto) 4.2 (2-11) % Eos % (Auto) 0.0 (0-4) % Baso % (Auto) 0.2 (0-2) % Lymph # (Auto) 1.2 (1.2-4.9) X10*3/uL Cache # (Auto) 0.7 (0.1-1.2) X10*3/uL Eos # (Auto) 0.0 (0.0-0.4) X10*3/uL Baso # (Auto) 0.0 (0.0-0.2) X10*3/uL Abs Immat Gran (auto) 0.08 H (0.00-0.03) X10*3/uL Absolute Neuts (auto) 14.1 H (2.0-8.3) x10*3/uL Absolute Nucleated RBC 0.000 (0.0-0.012) X10*3/uL Nucleated RBC % (auto) 0.0 (0.0-0.2) /100WBC VBG pH 7.45 H (7.32-7.43) VBG pCO2 40 mmHg VBG pO2 58 mmHg VBG HCO3 28 H (22-26) mmol/L VBG O2 Saturation 87.0 % VBG Base Excess 4.1 mmol/L Sodium 147 H (135-145) mmol/L Potassium 6.2 H* (3.3-5.1) mmol/L Chloride 107 (96-108) mmol/L Carbon Dioxide 28 (22-29) mmol/L Anion Gap 18 (12-20) BUN 48 H (9-16) mg/dL Creatinine 2.21 H (0.5-1.4) mg/dL Estim Creat Clear Calc 23.3 Estimated GFR 22 Random Glucose 183 H (60-115) mg/dL Lactic Acid 3.5 H* (0.5-2.0) mmol/L Calcium 9.5 D (8.4-10.2) mg/dL Magnesium 2.4 (1.6-2.6) mg/dL Total Bilirubin 0.4 (0.0-1.0) mg/dL Direct Bilirubin 0.4 (0.0-0.5) mg/dL AST 15 (5-31) U/L ALT 16 (0-31) U/L Alkaline Phosphatase 111 (39-117) U/L Troponin I High Sens 35.9 H D (<3.5-17.0) ng/L B-Natriuretic Peptide 174 H (<100) pg/mL Total Protein 7.8 (6.5-8.0) g/dL Albumin 3.2 L (3.5-5.0) g/dL Lipase 20 (8-78) U/L Procalcitonin 20.73 ng/mL TSH 2.28 (0.32-4.0) uIU/mL Independent Interpretation I performed an independent interpretation of an: EKG and CT Scan (dense RLL consolidation) Interpretation: Rate: 104 Rhythm: afib [place]: left Normal QRS complex. ST T wave : no MIRANDA, inverted t waves V1, artifact noted qTC: 420 prior studies: no acute ischemia The study has been interpreted contemporaneously by me. . Radiology Impression Discussion of test interpretation with radiology: I have reviewed the radiologist's reading. Independent Historian Clinical information obtained from an independent historian. History obtained from or confirmed by: EMS and Other (daughter) External Record Review External record reviewed: Inpatient record and Outpatient record Procedures EJ/Peripheral Line Arm L: Time Out Performed: Yes Skin Cleansed in Sterile Fashion: Yes Size (gauge): 20 IV Secured and Dressing Applied: Yes Patient Tolerated Procedure: well and no complications Additional Comments: US guided Arm R: Time Out Performed: Yes Skin Cleansed in Sterile Fashion: Yes Size (gauge): 20 IV Secured and Dressing Applied: Yes Patient Tolerated Procedure: well and no complications Additional Comments: US guided Critical Care Time Critical Care Time Critical Care Time: Yes Total Critical Care Time: 60 Attestation: IVF x 2L, K treatment, IV calcium, review of records, call to family, admission, repeat assessments Discharge Plan Discharge Clinical Impression: ANABELL (acute kidney injury), Acute hyperkalemia, Acidosis, lactic Pneumonia Qualifiers: Pneumonia type: due to unspecified organism Laterality: right Lung location: l ower lobe of lung Qualified Code(s): J18.9 - Pneumonia, unspecified organism Elevated WBC count Qualifiers: Leukocytosis type: unspecified Qualified Code(s): D72.829 - Elevated white blood cell count, unspecified Fever Qualifiers: Fever type: unspecified Qualified Code(s): R50.9 - Fever, unspecified Patient Disposition: Admitted As Inpatient
[2024-01-16 17:02] LABS: MANUAL DIFF FLAG NO
[2024-01-16 17:05] LABS: VBG Base Excess 4.1 mmol/L; VBG HCO3 28 mmol/L (22-26); VBG pCO2 40 mmHg; VBG pH 7.45 (7.32-7.43); VBG pO2 58 mmHg
[2024-01-16] MEDS: Lactated Ringers 1,000 ML 999 ML IV ×3 (17:05→20:49)
[2024-01-16 17:06] LABS: Venous Blood Gas Refer to POC result
[2024-01-16 17:07] LABS: Basophils Percent Auto 0.2 % (0-2); Hematocrit 36.8 % (37.0-47.0); Hemoglobin 11.3 g/dl (12.0-16.0); Imm Gran Abs Auto 0.08 X10*3/uL (0.00-0.03); Imm Gran Pct Auto 0.5 % (0.0-0.4); Lymphocytes Absolute Auto 1.2 X10*3/uL (1.2-4.9); Lymphocytes Percent Auto 7.5 % (20-40); Mean Corpuscular HGB Conc 30.7 g/dl (31.0-35.0); Mean Corpuscular Hemoglobin 30.1 pg (27.0-33.0); Mean Corpuscular Volume 98.1 fL (80.0-98.0); Mean Platelet Volume 10.7 fL (9.4-12.3); Monocytes Absolute Auto 0.7 X10*3/uL (0.1-1.2); Monocytes Percent Auto 4.2 % (2-11); Neutrophils Absolute Auto 14.1 x10*3/uL (2.0-8.3); Neutrophils Percent Auto 87.6 % (45-73); Platelet Count 325 X10*3/uL (160-400); Red Blood Count 3.75 X10*6/uL (4.20-5.50); Red Cell Distribution Width 14.8 % (11.0-16.0); White Blood Count 16.1 X10*3/uL (4.8-10.8)
--- NOTE | 2024-01-16 17:15 | PC.NURSE ---
Patient very difficult stick, unable to acquire IV access, PA provider Iza currently in room attempting line placement
[2024-01-16 17:25] LABS: B Type Natriuretic Peptide 174 pg/mL (<100)
[2024-01-16] MEDS: cefEPime HCl 2 GM in 0.9 % Sodium Chloride 50 ML IV (17:25)
[2024-01-16 17:27] LABS: Troponin-I High Sensitivity 35.9 ng/L (<3.5-17.0)
[2024-01-16] MEDS: Acetaminophen Supp 650 MG SUPP.RECT PR (17:30)
--- NOTE | 2024-01-16 17:31 | PC.NURSE ---
US attempt not successful, IV abx slowly infusing through EMS line, provider made aware will attempt to place line.
[2024-01-16] MEDS: vancomycin/NS 2,000 MG/500 ML PLAST..BAG 250 MG IV (17:53)
--- NOTE | 2024-01-16 17:57 | PC.NURSE ---
Dr. Art able to place 2 IVs w/ US guidance. Cheng now johana. LR running.
[2024-01-16 17:58] LABS: Alanine Aminotransferase 16 U/L (0-31); Albumin Level 3.2 g/dL (3.5-5.0); Alkaline Phosphatase 111 U/L (39-117); Anion Gap 18 (12-20); Aspartate Amino Transferase 15 U/L (5-31); Bilirubin Direct 0.4 mg/dL (0.0-0.5); Bilirubin Total 0.4 mg/dL (0.0-1.0); Blood Urea Nitrogen 48 mg/dL (9-16); Calcium 9.5 mg/dL (8.4-10.2); Carbon Dioxide 28 mmol/L (22-29); Chloride 107 mmol/L (96-108); Creatinine Clr Calc Pharmacy 23.3; Estimated Glomerular Filt Rate 22; Glucose Random 183 mg/dL (60-115); Lipase 20 U/L (8-78); Magnesium 2.4 mg/dL (1.6-2.6); Potassium 6.2 mmol/L (3.3-5.1); Procalcitonin 20.73 ng/mL; Sodium 147 mmol/L (135-145); TSH reflex Free T4 2.28 uIU/mL (0.32-4.0); Total Protein 7.8 g/dL (6.5-8.0)
[2024-01-16 17:58] LABS: Lactic Acid 3.5 mmol/L (0.5-2.0)
[2024-01-16] MEDS: Insulin Regular, Human 100 UNIT/ML 10 ML VIAL IVPUSH (18:35)
[2024-01-16] MEDS: Dextrose 10 % 250 ML 750 ML IV (18:35)
[2024-01-16] MEDS: Calcium Gluconate/NaCl,Iso-Osm 2 GM/100 ML PLAST..BAG IV (18:35)
[2024-01-16 18:59] LABS: Reflex Lactate? Lactic Acid Added
[2024-01-16] MEDS: methylPREDNISolone Sod Succ 125 MG/2 ML VIAL 60 MG IVPUSH (19:48)
--- NOTE | 2024-01-16 20:03 | P.HPHOSP_ITS ---
History of Present Illness Date of Service: 01/16/24 <ALYSSA Bloom - Last Filed: 01/16/24 20:21> Attending physician on admission: Ji Dang <ALYSSA Bloom - Last Filed: 01/16/24 20:21> Chief Complaint: ams <ALYSSA Bloom - Last Filed: 01/16/24 20:21> 78 yo female with PMH of afib on xarelto, DVT, HLD, recurrent UTI E. Coli, Klebsiella, Vanco S enterococcus, KRISHAN, DM, schizoaffective has a MOLST that states FULL CODE, respiratory failure, - but not on home O2 EMS reports [facility] reported hypoxia they state called for AMS unsure onset. At [facility] has been on azithromycin for pneumonia and was given 1g ceftriaxone today either for pneumonia/UTI/both. The patient is lethargic opening eyes to tactile stimuli, states her name but is otherwise disoriented and offers no complaints. On arrival, she is febrile to 101.7, tachycardic to 127, tachypneic. Was briefly hypotensive to 82/43 noted on laboratory monitor but improved to 112/63 on admission following IV fluids. She has a leukocytosis of 16.1. Creatinine 2.21, BUN 48. Sodium 147, potassium 6.2, electrolytes otherwise within normal limits. Initial lactic acid 3.5, repeat pending. VBG pH 7.45, pCO2 40, bicarb 28. Initial troponin 35.9, repeat pending. BNP 174. Procalcitonin 20.73. Chest CT shows dense consolidations with air bronchograms in the dependent right lower lobe and milder changes at the contralateral left lung base likely due to atelectasis. Head CT negative for acute intracranial abnormality. In the ED has been treated with 2 L IV LR, IV cefepime, vancomycin, 60 mg IV methylprednisolone, calcium gluconate, 5 units regular insulin and D10. <ALYSSA Bloom - Last Filed: 01/16/24 20:21> Review of Systems 2 Review of Systems: Yes Unobtainable due to mental status <ALYSSA Bloom - Last Filed: 01/16/24 20:21> [facility] Medical History: Medical History Persistent atrial fibrillation Bacteremia due to Gram-negative bacteria Cholelithiasis DVT, bilateral lower limbs Type 2 diabetes mellitus with hyperglycemia Hypercholesterolemia Recurrent UTI Lumbar degenerative disc disease Afib <ALYSSA Bloom - Last Filed: 01/16/24 20:21> Family History: Family History Father Diabetes Heart disease Mother Heart disease Son Opiate addiction <ALYSSA Bloom - Last Filed: 01/16/24 20:21> Surgical History: Surgical History History of lumpectomy of right breast History of tubal ligation <ALYSSA Bloom - Last Filed: 01/16/24 20:21> Social History: Social History Household Members: Children Household Members Other:: home with daughter Housing: Unknown / Unable to assess Do you presently have visiting nurse or other home services: No Unable to assess alcohol history related to: Unable to respond Alcohol intake: unknown Comment: bed close to RN station Patient Tobacco Use Status: Never used Tobacco e-Cigarette/Vaping Use: Never Used Second Hand Smoke Exposure: No Use of substances other than those prescribed or required for medical reasons: Unable to respond Advance Directives: Yes Advance Directives on File: Yes Advance Directives Date on File: 01/09/21 Do you have a plan to hurt others: No Plan service: No Current occupational status: retired Cognitive needs: Yes (Electric Wheel Chair) Hearing needs: Yes (Earring Aids) Vision needs: Yes (Glasses) <ALYSSA Bloom - Last Filed: 01/16/24 20:21> Meds Allergies/Adverse reactions: Allergies Allergy/AdvReac Type Severity Reaction Status Date / Time Iodinated Contrast Media Allergy Severe THROAT Verified 01/16/24 16:26 [IV Dye, Iodine Containing CLOSES Contrast ] UP/SWELLIN iodine [IODINE] Allergy Severe ANAPHYLAXIS Verified 01/16/24 16:26 sulfamethoxazole Allergy Intermediate rash face Verified 01/16/24 16:26 [From Bactrim] trimethoprim [From Bactrim] Allergy Intermediate rash face Verified 01/16/24 16:26 quetiapine [From SEROQUEL] Allergy Unknown SWELLING Verified 01/16/24 16:26 apixaban [From Eliquis] AdvReac Intermediate Diarrhea Verified 01/16/24 16:26 amoxicillin [Augmentin] AdvReac Unknown Diarrhea Verified 01/16/24 16:26 clavulanic acid [Augmentin] AdvReac Unknown Diarrhea Verified 01/16/24 16:26 lisinopril [LISINOPRIL] AdvReac Unknown Cough Verified 01/16/24 16:26 prednisone [PREDNISONE] AdvReac Unknown INCREASE Verified 01/16/24 16:26 BLOOD PRESSURE <ALYSSA Bloom - Last Filed: 01/16/24 20:21> Active Medications: Current Medications Acetaminophen (Acetaminophen 325 Mg Tablet) 650 mg PO Q6H PRN PRN Reason: Pain, Mild (Pain Scale 1-3), fever or headache Calcium Carbonate (Calcium Carbonate 750 Mg Tab.Chew) 750 mg PO Q4H PRN PRN Reason: Heartburn Lactated Ringer's (Lr) 1,000 mls @ 999 mls/hr IV .Q1H1M DANELLE Stop: 01/16/24 21:00 Dextrose/Sodium Chloride (D51/2ns) 1,000 mls @ 100 mls/hr IVCONT .Q10H DANELLE Cefepime HCl 2 gm/ Sodium (Chloride) 50 mls @ 100 mls/hr IV Q24H DANELLE Magnesium Hydroxide (Milk Of Magnesia 30 Ml Oral.Susp) 30 ml PO DAILY PRN PRN Reason: Constipation Melatonin (Melatonin 3 Mg Tablet) 6 mg PO BEDTIME PRN PRN Reason: Insomnia Pharmacy Consult (Consult Rx Vancomycin Dosing) 1 each MISCELLANE DAILY PRN PRN Reason: Consult order Sodium Chloride (0.9 % Sodium Chloride Flush 3 Ml Syringe) 3 ml IVFLUSH QSHIFT DANELLE <ALYSSA Bloom - Last Filed: 01/16/24 20:21> Home medications: Home Medications ?Medication ?Instructions ?Recorded ?Confirmed ?Last Taken ?Type albuterol sulfate 90 mcg/actuation 2 puff inhalation Q6H PRN 06/18/20 08/12/22 10/17/21 History aerosol inhaler Shortness Of Breath Or Wheezing acetaminophen 325 mg tablet 650 mg PO Q4H PRN Fever Or Pain 10/17/21 08/12/22 12/24/21 History loperamide 2 mg tablet 2 mg PO Q6H PRN Loose Stool 10/17/21 08/12/22 10/26/21 History multivitamin with minerals 1 tab PO DAILY 10/17/21 08/12/22 12/24/21 History trazodone 50 mg tablet 50 mg PO BEDTIME 10/17/21 08/13/22 12/24/21 History furosemide 20 mg tablet 1 tab PO DAILY 12/25/21 08/13/22 12/24/21 History mirtazapine 7.5 mg tablet 7.5 mg PO BEDTIME 12/25/21 08/13/22 12/24/21 History potassium chloride 20 mEq 1 tab PO BID 12/25/21 08/13/22 12/25/21 History tablet,extended release(part/cryst) rivaroxaban 20 mg tablet (Xarelto) 1 tab PO DAILY 12/25/21 08/13/22 12/24/21 History insulin glargine 100 unit/mL (3 20 unit subcut BEDTIME 08/12/22 08/13/22 Unknown History mL) subcutaneous pen (Lantus Solostar U-100 Insulin) metoprolol tartrate 50 mg tablet 50 mg PO BID 08/12/22 08/13/22 Unknown History amlodipine 10 mg tablet 1 tab PO DAILY 08/13/22 08/13/22 Unknown History <ALYSSA Bloom - Last Filed: 01/16/24 20:21> Physical Exam 2 Vital Signs and Narrative: Vital Signs: Last Vital Signs Temp 99.3 F 01/16/24 18:04 Pulse 118 H 01/16/24 19:10 Resp 18 01/16/24 19:10 BP 107/55 L 01/16/24 19:10 Pulse Ox 99 01/16/24 19:10 O2 Del Method Room Air 01/16/24 19:10 O2 Flow Rate 2 01/16/24 18:46 BMI result Body Mass Index 30.0 <ALYSSA Bloom - Last Filed: 01/16/24 20:21> Constitutional - Awake and Alert, No apparent distress Eyes - PERRLA, EOMI Cardiovascular - S1S2, RRR, No edema Respiratory - Normal lung expansion, Normal respiratory effort, No respiratory distress on 2L, rhonchi LLL, diminished RLL Gastrointestinal - NT / ND; +BS; No rebound or guarding Extremities - no calf tenderness bilaterally, no swelling Skin - Warm/Dry Neurological - Alert & oriented x3 Psychological - Appropriate affect <ALYSSA Bloom - Last Filed: 01/16/24 20:21> Results Labs CBC and Chem 7: 01/16/24 16:55 01/16/24 16:55 <ALYSSA Bloom - Last Filed: 01/16/24 20:21> Labs: Laboratory Results - last 24 hr 01/16/24 01/16/24 01/16/24 16:54 16:55 16:57 MCV 98.1 H MCH 30.1 MCHC 30.7 L RDW 14.8 Plt Count 325 D MPV 10.7 Immature Gran % (Auto) 0.5 H Neut % (Auto) 87.6 H Lymph % (Auto) 7.[address] [place] % (Auto) 4.2 Eos % (Auto) 0.0 Baso % (Auto) 0.2 Lymph # (Auto) 1.2 [place] # (Auto) 0.7 Eos # (Auto) 0.0 Baso # (Auto) 0.0 Abs Immat Gran (auto) 0.08 H Absolute Neuts (auto) 14.1 H Absolute Nucleated RBC 0.000 Nucleated RBC % (auto) 0.0 VBG pH 7.45 H VBG pCO2 40 VBG pO2 58 VBG HCO3 28 H VBG O2 Saturation 87.0 VBG Base Excess 4.1 Anion Gap 18 Estim Creat Clear Calc 23.3 Estimated GFR 22 Random Glucose 183 H Lactic Acid 3.5 H* Calcium 9.5 D Magnesium 2.4 Total Bilirubin 0.4 Direct Bilirubin 0.4 AST 15 ALT 16 Alkaline Phosphatase 111 Troponin I High Sens 35.9 H D B-Natriuretic Peptide 174 H Total Protein 7.8 Albumin 3.2 L Lipase 20 Procalcitonin 20.73 TSH 2.28 <ALYSSA Bloom - Last Filed: 01/16/24 20:21> Imaging Radiologist's Impressions: Impressions Chest CT 01/16/24 16:35 IMPRESSION: Dense consolidation with air bronchograms in the dependent right lower lobe. Infectious etiology would be favored with this appearance. Milder changes at the contralateral left lung base more likely due to atelectasis. Head CT 01/16/24 16:35 IMPRESSION: No acute intracranial abnormality including hemorrhage, mass effect, hydrocephalus, or acute territorial edematous infarction. <ALYSSA Bloom - Last Filed: 01/16/24 20:21> Assessment and Plan (1) Acidosis, lactic: Status: Acute <ALYSSA Bloom - Last Filed: 01/16/24 20:21> (2) Pneumonia: Qualifiers: Laterality: right Lung location: lower lobe of lung P neumonia type: due to unspecified organism Qualified Code(s): J18.9 - Pneumonia, unspecified organism <ALYSSA Bloom - Last Filed: 01/16/24 20:21> Status: Acute <ALYSSA Bloom - Last Filed: 01/16/24 20:21> (3) ANABELL (acute kidney injury): Status: Acute <ALYSSA Bloom - Last Filed: 01/16/24 20:21> (4) Acute hyperkalemia: Status: Acute <ALYSSA Bloom - Last Filed: 01/16/24 20:21> 78 yo female with PMH of afib on xarelto, DVT, HLD, recurrent UTI E. Coli, Klebsiella, Vanco S enterococcus, KRISHAN, DM, schizoaffective has a MOLST that states FULL CODE, respiratory failure, - but not on home O2 admitted for further management of acute pneumonia with acute metabolic enechalopathy and severe sepsis and acute hypoxemic respiratory failure #Acute RLL pneumonia with severe sepsis and acute hypoxemic respiratory failure -leukocytosis 16.1, tachycardic, febrile, tachypneic. Lactic acidosis 3.5, repeat pending, also ANABELL. Blood cultures pending -PCT 20 -IV vancomycin and cefepime (initiated 01/15) -strep pneumo antigen, Legionella antigen, sputum culture pending -COVID-19, influenza, RSV pending -symptomatic management -continue supplemental O2 to maintain oximetry greater than 92%, wean as tolerated per protocol -follow CBC, cultures. Trend PCT #?Acute UTI -per facility, received 1g iv ctx for uti. UA pending #Acute metabolic encephalopathy -due to infection, abx as above #Acute kidney injury -due to hypoperfusion r/t severe sepsis -creatinine 2.21, last measured at 0.83 -continue IVF -avoid nephrotoxins -follow renal function/lytes # acute hyperkalemia -related to above -given calcium gluconate, 5 units regular insulin with D10, and IVF -follow lytes -monitor on telemetry # acute hyponatremia -continue hypotonic fluids -follow lytes # hypertension -blood pressure soft, hold antihypertensives at this time. Resume as blood pressure allows # paroxysmal atrial fibrillation -continue Xarelto for anticoagulation. Resume metoprolol as blood pressure allows # history DVT -continue Xarelto # insulin-dependent type 2 diabetes -hold lantus as pt NPO due to lethargy -POC glucose, advanced to diabetic diet as mentation improves -Humalog on sliding scale -hold metformin # schizoaffective disorder -continue home medications DVT prophylaxis-Xarelto Full code per MOLST form Patient requires inpatient stay at least 2 midnights for management of acute pneumonia with severe sepsis and acute hypoxemic respiratory failure with acute metabolic encephalopathy requiring close monitoring of mentation, IV fluid resuscitation, and IV antibiotics as well as monitoring of hemodynamics to monitor for prevent decompensation <ALYSSA Bloom - Last Filed: 01/16/24 20:21> 78 yo female with PMH of afib on xarelto, DVT, HLD, recurrent UTI E. Coli, Klebsiella, Vanco S enterococcus, KRISHAN, DM, schizoaffective has a MOLST that states FULL CODE, respiratory failure, - but not on home O2 admitted for further management of acute pneumonia with acute metabolic enechalopathy and severe sepsis and acute hypoxemic respiratory failure #Acute RLL pneumonia with severe sepsis and acute hypoxemic respiratory failure -leukocytosis 16.1, tachycardic, febrile, tachypneic. Lactic acidosis 3.5, repeat pending, also ANABELL. Blood cultures pending -PCT 20 -IV vancomycin and cefepime (initiated 01/15) -strep pneumo antigen, Legionella antigen, sputum culture pending -COVID-19, influenza, RSV pending -symptomatic management -continue supplemental O2 to maintain oximetry greater than 92%, wean as tolerated per protocol -follow CBC, cultures. Trend PCT #?Acute UTI -per facility, received 1g iv ctx for uti. UA pending #Acute metabolic encephalopathy -due to infection, abx as above #Acute kidney injury -due to hypoperfusion r/t severe sepsis -creatinine 2.21, last measured at 0.83 -continue IVF -avoid nephrotoxins -follow renal function/lytes # acute hyperkalemia -related to above -given calcium gluconate, 5 units regular insulin with D10, and IVF -follow lytes -monitor on telemetry # acute hyponatremia -?hypovolemia, continue isotonic fluids -follow lytes # hypertension -blood pressure soft, hold antihypertensives at this time. Resume as blood pressure allows # paroxysmal atrial fibrillation -continue Xarelto for anticoagulation. Resume metoprolol as blood pressure allows # history DVT -continue Xarelto # insulin-dependent type 2 diabetes -hold lantus as pt NPO due to lethargy -POC glucose, advanced to diabetic diet as mentation improves -Humalog on sliding scale -hold metformin # schizoaffective disorder -continue home medications DVT prophylaxis-Xarelto Full code per MOLST form Patient requires inpatient stay at least 2 midnights for management of acute pneumonia with severe sepsis and acute hypoxemic respiratory failure with acute metabolic encephalopathy requiring close monitoring of mentation, IV fluid resuscitation, and IV antibiotics as well as monitoring of hemodynamics to monitor for prevent decompensation <Ji Dang MD - Last Filed: 01/16/24 20:24> Quality Stroke Does the patient have a stroke diagnosis?: No <ALYSSA Bloom - Last Filed: 01/16/24 20:21> VTE Prior VTE?: Yes <ALYSSA Bloom - Last Filed: 01/16/24 20:21> VTE Risk Level:: Medical - moderate - high <ALYSSA Bloom - Last Filed: 01/16/24 20:21> VTE Device Contraindication: Treatment Not Indicated <ALYSSA Bloom - Last Filed: 01/16/24 20:21> VTE Drug Contraindication: N/A - Med Ordered <ALYSSA Bloom - Last Filed: 01/16/24 20:21>
--- NOTE | 2024-01-16 20:34 | PHA.PROG ---
Admission Date/Time: January 16, 2024 19:55 Indication: Sepsis Weight in k.3 kg Adjusted body weight in Kg: [place] body weight in Kg: Obesity Dosing Indication % IBW: Serum Creatinine - Last 168 Hours 01/16/24 16:55 Creatinine 2.21 H Estimated CrCl and GFR - Last 168 Hours 01/16/24 16:55 Estim Creat Clear Calc 23.3 Estimated GFR 22 Vancomycin Loading Dose: 2000mg x 1 Current Vancomycin Dosing Regimen: 750mg Q24H Vancomycin Monitoring using AUC goal of 400 - 600 range with trough as surrogate marker: 522 mg/L Date and Time for next Vancomycin Level to be drawn: 01/17 @1800 Pharmacist Comments on Vancomycin Plan: Predicted trough of 18.2mg/L; pateint's renal function is poor so getting a level after two doses. Will adjust as necessary Vancomycin dosing will take advantage of [employer] as a clinical decision support tool that uses Bayesian modeling to calculate individual patient's pharmacokinetic parameters and forecast the patient's drug concentration time course with the target goal AUC 24 range of 400 - 600 mg/L/hr.
[2024-01-16] MEDS: Dextrose 5 % and 0.45 % NaCl 1,000 ML 100 ML IVCONT (20:50)
[2024-01-16] MEDS: Insulin Lispro 100 UNIT/ML 3 ML VIAL SUBCUT (20:51)
--- NOTE | 2024-01-16 20:57 | PHA.MEDREC ---
Addendum entered by Evette Esparza [facility] 01/16/24 21:18: Patient was scheduled to start an IM 1g ceftriaxone injection x3 days on 01/17/24 Original Note: Pharmacy Consult ? Medication Reconciliation Pharmacy has completed the medication reconciliation.Confirmed medications with list provided by [facility]. Patient also not responsive when I went into room.
--- NOTE | 2024-01-16 21:13 | PC.NURSE ---
Patient difficult stick, second lactic and trop delayed. Provider aware
--- NOTE | 2024-01-16 21:30 | PC.NURSE ---
[facility] katherine at bedside to draw 2nd lactic and trop
[2024-01-16 21:32] LABS: Appearance Urine Turbid; Color Urine Dark Yellow; Glucose Urine UA 100 mg/dL (Negative); Leukocyte Esterase Urine Small (1+) (Negative); Nitrite Urine Positive (Negative); PH 5.5 (5.0-9.0); Specific Gravity - Urine 1.025 (1.005-1.025); UMIC TRIGGER UACC YES; Urine Blood Moderate (2+) (Negative); Urine Ketones Trace mg/dL (Negative); Urine Protein 100 (2+) mg/dL (Neg-Trace)
[2024-01-16 21:49] LABS: Bacteria Urine 4+ (None Seen); Granular Casts Urine Present; UACC Culture Trigger YES
--- NOTE | 2024-01-16 21:54 | PC.NURSE ---
Spoke to Mona in lab regarding SARS swab, has been collected but never received in lab. Mona confirmed specimen is not in lab, will unrecieve lab in order to be recollected.
[2024-01-16 22:12] LABS: Troponin-I High Sensitivity 30.7 ng/L (<3.5-17.0)
[2024-01-16 22:26] LABS: ~Lactic Acid-LAB USE ONLY 2.6 mmol/L (0.5-2.0)
--- NOTE | 2024-01-16 22:31 | PC.NURSE ---
Second lactic critical at 2.6, Dr. Dang made aware.
--- NOTE | 2024-01-16 22:52 | PC.NURSE ---
SARS PANEL RESENT TO LAB
[2024-01-16 22:54] LABS: Glucose, Whole Blood 184 mg/dL (60-115)
[2024-01-16 23:31] LABS: Influenza A PCR NEGATIVE (Negative); Influenza B PCR NEGATIVE (Negative); Resp Syncy Virus RNA Qual PCR NEGATIVE (Negative); SARS COV2 PCR INHOUSE NEGATIVE (Negative)
--- NOTE | 2024-01-16 23:33 | PC.NURSE ---
Took over care from IDALMIS Mcgraw, Blood pressure 92/52 (map 64) Dr. Dang aware. No new orders at this time.
[2024-01-16 23:37] LABS: Reflex Lactate? 2 Y
[2024-01-17] VITALS (12 sets, daily range): BP systolic 97–130; BP diastolic 56–82; PULSE 110–140; RESP 20–40; TEMP 36–36.8; O2SAT 92–100; BMI 33.0
[2024-01-17 00:42] LABS: ~Lactic Acid-LAB USE ONLY 1.4 mmol/L (0.5-2.0)
--- NOTE | 2024-01-17 04:58 | PC.NURSE ---
PT REPOSITION FOR COMFORT, PT PLACED IN HOSPITAL BED, PT LETHARGIC AT THIS TIME, DOES RESPOND PAINFUL STIMULUS
[2024-01-17 05:23] LABS: Estimated Glomerular Filt Rate 36
--- NOTE | 2024-01-17 05:29 | PC.NURSE ---
PER DR GARZA NO REPEAT TROP
[2024-01-17] MEDS: Dextrose 5 % and 0.45 % NaCl 1,000 ML 100 ML IVCONT (06:01)
--- NOTE | 2024-01-17 07:00 | CA_ITS ---
Transthoracic Echocardiogram Patient (Last, First, Middle): Amarilys Badillo M Gender: Female Date of : 1945 Age: 78 Procedure Date: 01/17/2024 Procedure Type: Transthoracic Echocardiogram [place] [facility] [place] Height: 167. cm Weight: 83.92 kg BSA: 1.93 m2 Heart Rate: 95 bpm BP: 104 / 62 mmHg Roll Tension Tester: LAILA Referring MD: Marisol Luther MD Symptoms: af/rvr Study Quality: Fair ECG Rhythm: Atrial Fibrillation Conclusions: - Normal left ventricular cavity size. There is mildly increased left ventricular wall thickness. The left ventricular systolic function is low normal. The visually estimated ejection fraction is between 50-55%. - Diastolic function is indeterminate on the basis of available data. - Normal right ventricular cavity size. There is mildly decreased right ventricular systolic function. - The left atrium is severely dilated. Findings Left Ventricle Normal left ventricular cavity size. There is mildly increased left ventricular wall thickness. The left ventricular systolic function is low normal. The visually estimated ejection fraction is between 50-55%. There is no evidence of regional wall motion abnormalities. Diastolic function is indeterminate on the basis of available data. Right Ventricle Normal right ventricular cavity size. There is mildly decreased right ventricular systolic function. Atria The left atrium is severely dilated. The right atrium is mildly dilated. Aortic Valve The aortic valve was not well visualized. There is no aortic valve stenosis. There is no aortic valve regurgitation. Mitral Valve There is mild mitral annular calcification. There is trace mitral valve regurgitation. There is no mitral valve stenosis. Pulmonic Valve The pulmonic valve is likely normal. Tricuspid Valve Normal tricuspid valve structure. There is trace tricuspid valve regurgitation. Tricuspid regurgitation envelope is inadequate for calculation of right ventricular systolic pressure. Normal right atrial pressure. Great Vessels All visible segments of the aorta are normal in size. The visualized portions of the pulmonary artery and branches are normal. Venous The inferior vena cava is normal in size and collapses greater than 50% with inspiration. Pericardium/Pleural There is no evidence of pericardial effusion. Prior Study Comparison Changes noted compared to prior study dated: 09/29/2021. Low normal LVEF 50 55%, mild RV dysfunction. Measurements 2D Linear Measurements IVSd: 1.84 0.6-0.9/0.6-1.0 cm LVIDd: 4.35 3.9-5.3/4.2-5.9 cm LVIDd Index: 2.25 2.4-3.2/2.2-3.1 cm/m2 LVIDs: 3.10 2.0-3.6 cm LVPWd: 0.96 0.7-1.1 cm LV Mass: 294.54 67-162/88-224 g LV Mass Index: 152.61 43-95/49-115 g/m2 LVOT Diam: 2.10 3.0+(-)1.3 cm 2D Systolic Function EF 4C: 48.30 >55% EF 2C: 45.10 >55% EF BiP: 46.30 >55% Mitral Valve MV Pk E: 0.84 MV Decel Time: 180.00 E'Lateral: 11.30 E'Medial: 8.16 E/E' Med: 10.30 E/E' Lat: 7.50 PHT: 53.00 MVA PHT: 4.15 Decel [place]: 4.70 Aortic Valve AoV Pk Aldo: 1.21 AoV Mn Aldo: 0.90 AoV VTI: 0.23 AoV Pk Grad: 6.00 Aov Mn Grad: 4.00 LAY Cont.VTI: 1.76 LVOT LVOT Pk Aldo: 0.59 LVOT Mn Lado: 0.45 LVOT VTI: 0.12 LVOT Pk Grad: 1.00 LVOT Mn Grad: 1.00 LVOT Diam: 2.10 LVOT Area: 3.46 Diastolic Function MV Pk E: 0.84 E'Medial: 8.16 E/E' Med: 10.30 E' Laterial: 11.30 E/E' Lat: 7.50 Right Ventricle TAPSE (mm): 12.40 TVS' Aldo: 8.27 Tricuspid Valve TR Pk Aldo: 1.94 TR Pk Grad: 15.00 Great Vessels Aorta Ao Asc: 3.50 2.1-3.4 cm Pulmonary Valve PV Pk Aldo: 0.91 Peak PV Grad: 3.00 Updated in Other Vendor System with Status of Final Edison Maddox MD electronically signed on 01/17/2024 8:50:29 PM with status of Final
[2024-01-17 07:11] LABS: Glucose, Whole Blood 270 mg/dL (60-115)
--- NOTE | 2024-01-17 07:29 | PC.NURSE ---
patient appears to be resting comfortably in hospital bed, respirations equal and unlabored, currently afib on the monitor rate 120s-130s. patient has purewick in place, 100 ml output this AM around 0700. patient responsive to verbal stimuli, unable to speak in clear sentences, patient speech jarbled. patient skin dry and intact, linens clean and dry. patient currently has D5 1/2 Normal saline running 100ml/hr
[2024-01-17] MEDS: Insulin Lispro 100 UNIT/ML 3 ML VIAL SUBCUT ×4 (07:45→21:41)
--- NOTE | 2024-01-17 08:00 | ECG_ITS ---
Test Reason : AFIB with RVR Blood Pressure : / mmHG Vent. Rate : 138 BPM Atrial Rate : 000 BPM P-R Int : 000 ms QRS Dur : 088 ms QT Int : 272 ms P-R-T Axes : 000 -30 194 degrees QTc Int : 412 ms Atrial fibrillation with rapid ventricular response with premature ventricular or aberrantly conducted complexes Nonspecific T wave changes Abnormal ECG When compared with ECG of 17-JAN-2024 08:56, No significant change was found Referred By: Sebastien Medina Electronically Signed By:Edison Maddox
[2024-01-17 08:57] LABS: Glucose, Whole Blood 259 mg/dL (60-115)
[2024-01-17] MEDS: 0.9 % Sodium Chloride 1,000 ML 500 ML IVCONT (09:00)
[2024-01-17] MEDS: Metoprolol Tartrate 5 MG/5 ML VIAL 2.5 MG IVPUSH (09:08)
--- NOTE | 2024-01-17 09:21 | PC.NURSE ---
Assumed care of patient at 0849. Upon admission to unit patient's HR ran from 130s- 170s, RR 40 but unlabored , BP 105/72. Patient is minimally verbal and orientation is unable to be obtained. MD called to bedside, 1L normal saline bolus ordered and 2.5mg IV metoprolol ordered.BP at 0900: 106/70, [id number]. Current HR 114. rectal temp 96.6 o2 sat 100% on 2L NC.
[2024-01-17 10:12] LABS: Venous Blood Gas Refer to POC result
[2024-01-17 10:13] LABS: VBG Base Excess 4.6 mmol/L; VBG HCO3 25 mmol/L (22-26); VBG pCO2 26 mmHg; VBG pH 7.59 (7.32-7.43); VBG pO2 217 mmHg
[2024-01-17 10:41] LABS: Anion Gap 13 (12-20); Blood Urea Nitrogen 38 mg/dL (9-16); Calcium 8.5 mg/dL (8.4-10.2); Carbon Dioxide 24 mmol/L (22-29); Chloride 110 mmol/L (96-108); Creatinine Clr Calc Pharmacy 50.1; Estimated Glomerular Filt Rate 49; Glucose Random 270 mg/dL (60-115); Magnesium 1.9 mg/dL (1.6-2.6); Potassium 4.7 mmol/L (3.3-5.1); Sodium 142 mmol/L (135-145)
[2024-01-17 12:38] LABS: Glucose, Whole Blood 210 mg/dL (60-115)
[2024-01-17 12:38] LABS: Glucose, Whole Blood 192 mg/dL (60-115)
--- NOTE | 2024-01-17 13:18 | MHC.CM.PN ---
IMM 01/17/24 DELIVERED TO [facility] [phone] AFTER CM UNABLE TO CONTACT HCP, NO ANSWER AND DETAILED MESSAGE LEFT, PLAN WILL BE FOR PT TO RETURN TO LTC AT [facility], PCP VERIFIED BY FACILITY LIAISON IS RIYA DOWNING, HCP/ALEXIS ON FILE.
--- NOTE | 2024-01-17 13:40 | P.PNIM_ITS ---
Subjective Subjective Date of Service: 01/17/24 Interval History: minimally verbal but able to state that she isn't feeling well- coughing and dyspneic noted to be in rapid AF with rate in 150s. BP 106/68. given 2.5 mg IV metoprolol and rate now 100s on 2L O2. Review of Systems Review of Systems: Yes all other systems are reviewed and are negative Physical Exam 2 Vital Signs: Vital Signs: Last Vital Signs Temp 97 F 01/17/24 11:13 Pulse 110 H 01/17/24 11:13 Resp 20 01/17/24 11:13 BP 100/60 01/17/24 11:13 Pulse Ox 100 01/17/24 11:13 O2 Del Method Nasal Cannula 01/17/24 11:13 O2 Flow Rate 2 01/17/24 11:13 BMI result Body Mass Index 33.0 Gen: ill-appearing HEENT: sclera anicteric, moist mucus membranes Neck: supple Lungs: diminished R lung Heart: regular and tachycardic, no murmurs Abd: soft, non-tender, non-distended Ext: no edema Skin: warm/well-perfused Neuro: alert, oriented to self, moving all extremities Psych: appropriate affect Objective Data Active Medications Acetaminophen (Acetaminophen Supp 650 Mg Supp.Rect) 650 mg AL Q6H PRN PRN Reason: mild pain, fever, hsu Albuterol Sulfate (Albuterol Sulfate (0.083%) 2.5 Mg/3 Ml Vial.Neb) 2.5 mg INHALE Q4H PRN PRN Reason: Shortness of Breath Atorvastatin Calcium (Atorvastatin Calcium 10 Mg Tablet) 10 mg PO BEDTIME [facility] Bisacodyl (Bisacodyl 10 Mg Supp.Rect) 10 mg AL DAILY PRN PRN Reason: Constipation Calcium Carbonate (Calcium Carbonate 750 Mg Tab.Chew) 750 mg PO Q4H PRN PRN Reason: Heartburn Escitalopram Oxalate (Escitalopram Oxalate 10 Mg Tablet) 10 mg PO DAILY [facility] Last Admin: 01/17/24 10:15 Dose: Not Given Documented By: ROBERTA Non-Admin Reason: pt too lethargic Glucose (Glucose Gel 15 Gm Gel..Gram.) 15 gm PO Q15M PRN; Protocol PRN Reason: per Hypoglycemia Standing Ord. Dextrose/Sodium Chloride (D51/2ns) 1,000 mls @ 100 mls/hr IVCONT .Q10H [facility] Last Infusion: 01/17/24 09:09 Dose: 0 mls/hr Documented By: ROBERTA Cefepime HCl 2 gm/ Sodium (Chloride) 50 mls @ 100 mls/hr IV Q24H [facility] Vancomycin HCl 750 mg/ Sodium (Chloride) 265 mls @ 265 mls/hr IV Q24H [facility] Dextrose (D10) 250 mls @ 750 mls/hr IV Q15M PRN; Protocol PRN Reason: per Hypoglycemia Standing Ord. Insulin Human Lispro (Insulin Lispro 100 Unit/Ml 3 Ml Vial) 0 unit SUBCUT QIDACHS [facility]; Protocol Last Admin: 01/17/24 13:00 Dose: 4 unit Documented By: TANVI Magnesium Hydroxide (Milk Of Magnesia 30 Ml Oral.Susp) 30 ml PO DAILY PRN PRN Reason: Constipation Magnesium Oxide (Magnesium Oxide 400 Mg Tablet) 400 mg PO BID [facility] Last Admin: 01/17/24 10:16 Dose: Not Given Documented By: ROBERTA Non-Admin Reason: pt too lethargic Melatonin (Melatonin 3 Mg Tablet) 6 mg PO BEDTIME PRN PRN Reason: Insomnia Metoprolol Tartrate (Metoprolol Tartrate 25 Mg Tablet) 25 mg PO BID [facility]; Protocol Last Admin: 01/17/24 10:16 Dose: Not Given Documented By: ROBERTA Non-Admin Reason: pt too lethargic Pharmacy Consult (Consult Rx Vancomycin Dosing) 1 each MISCELLANE DAILY PRN PRN Reason: Consult order Rivaroxaban (Rivaroxaban 20 Mg Tablet) 20 mg PO DAILY@1700 [facility] Senna (Sennosides 8.6 Mg Tablet) 17.2 mg PO DAILY PRN PRN Reason: No BM in 2 Days Sodium Biphosphate/Sodium Phosphate (Sodium Phosphate,[place]-Dibasic 133 Ml Enema) 117 ml AL DAILY PRN PRN Reason: Bowel Management Sodium Chloride (0.9 % Sodium Chloride Flush 3 Ml Syringe) 3 ml IVFLUSH QSHIFT [facility] Last Admin: 01/17/24 07:28 Dose: Not Given Documented By: BUD Non-Admin Reason: IV Running Labs 01/16/24 16:55 01/17/24 10:03 Labs: Laboratory Results - last 24 hr 01/16/24 01/16/2401/15/24 16:54 16:55 16:57 MCV 98.1 H MCH 30.1 MCHC 30.7 L RDW 14.8 Plt Count 325 D MPV 10.7 Immature Gran % (Auto) 0.5 H Neut % (Auto) 87.6 H Lymph % (Auto) 7.5 L [place] % (Auto) 4.2 Eos % (Auto) 0.0 Baso % (Auto) 0.2 Lymph # (Auto) 1.2 [place] # (Auto) 0.7 Eos # (Auto) 0.0 Baso # (Auto) 0.0 Abs Immat Gran (auto) 0.08 H Absolute Neuts (auto) 14.1 H Absolute Nucleated RBC 0.000 Nucleated RBC % (auto) 0.0 VBG pH 7.45 H VBG pCO2 40 VBG pO2 58 VBG HCO3 28 H VBG O2 Saturation 87.0 VBG Base Excess 4.1 Anion Gap 18 Estim Creat Clear Calc 23.3 Estimated GFR 22 POC Glucose Random Glucose 183 H Lactic Acid 3.5 H* Lactic Acid F/U @ 2Hr Lactic Acid F/U @ 4Hr Calcium 9.5 D Magnesium 2.4 Total Bilirubin 0.4 Direct Bilirubin 0.4 AST 15 ALT 16 Alkaline Phosphatase 111 Troponin I High Sens 35.9 H D B-Natriuretic Peptide 174 H Total Protein 7.8 Albumin 3.2 L Lipase 20 Procalcitonin 20.73 TSH 2.28 Urine Color Urine Appearance Urine pH Ur Specific [place] Urine Protein Urine Glucose (UA) Urine Ketones Urine Blood Urine Nitrite Ur Leukocyte Esterase Urine RBC Urine WBC Ur Squamous Epith Cells Urine Bacteria Hyaline Casts Granular Casts Influenza Type A (PCR) Influenza Type B (PCR) RSV RNA Qual (PCR) SARS-CoV-2 RNA (RT-PCR) 01/16/24 01/16/24 01/16/24 20:39 21:10 21:30 MCV MCH MCHC RDW Plt Count MPV Immature Gran % (Auto) Neut % (Auto) Lymph % (Auto) [place] % (Auto) Eos % (Auto) Baso % (Auto) Lymph # (Auto) [place] # (Auto) Eos # (Auto) Baso # (Auto) Abs Immat Gran (auto) Absolute Neuts (auto) Absolute Nucleated RBC Nucleated RBC % (auto) VBG pH VBG pCO2 VBG pO2 VBG HCO3 VBG O2 Saturation VBG Base Excess Anion Gap Estim Creat Clear Calc Estimated GFR POC Glucose 184 H Random Glucose Lactic Acid Lactic Acid F/U @ 2Hr 2.6 H* Lactic Acid F/U @ 4Hr Calcium Magnesium Total Bilirubin Direct Bilirubin AST ALT Alkaline Phosphatase Troponin I High Sens 30.7 H B-Natriuretic Peptide Total Protein Albumin Lipase Procalcitonin TSH Urine Color Dark Yellow Urine Appearance Turbid Urine pH 5.5 Ur Specific [place] 1.025 Urine Protein 100 (2+) H Urine Glucose (UA) 100 H Urine Ketones Trace Urine Blood Moderate (2+) H Urine Nitrite Positive H Ur Leukocyte Esterase Small (1+) H Urine RBC 3-5 H Urine WBC 11-20 Ur Squamous Epith Cells 6-10 Urine Bacteria 4+ Hyaline Casts 11-20 Granular Casts Present Influenza Type A (PCR) Influenza Type B (PCR) RSV RNA Qual (PCR) SARS-CoV-2 RNA (RT-PCR) 01/16/24 01/17/24 01/17/24 22:49 00:22 04:47 MCV MCH MCHC RDW Plt Count MPV Immature Gran % (Auto) Neut % (Auto) Lymph % (Auto) [place] % (Auto) Eos % (Auto) Baso % (Auto) Lymph # (Auto) [place] # (Auto) Eos # (Auto) Baso # (Auto) Abs Immat Gran (auto) Absolute Neuts (auto) Absolute Nucleated RBC Nucleated RBC % (auto) VBG pH VBG pCO2 VBG pO2 VBG HCO3 VBG O2 Saturation VBG Base Excess Anion Gap Cancelled Estim Creat Clear Calc 36.0 Estimated GFR 36 POC Glucose Random Glucose Cancelled Lactic Acid Lactic Acid F/U @ 2Hr Lactic Acid F/U @ 4Hr 1.4 Calcium Cancelled Magnesium Cancelled Total Bilirubin Direct Bilirubin AST ALT Alkaline Phosphatase Troponin I High Sens B-Natriuretic Peptide Total Protein Albumin Lipase Procalcitonin TSH Urine Color Urine Appearance Urine pH Ur Specific [place] Urine Protein Urine Glucose (UA) Urine Ketones Urine Blood Urine Nitrite Ur Leukocyte Esterase Urine RBC Urine WBC Ur Squamous Epith Cells Urine Bacteria Hyaline Casts Granular Casts Influenza Type A (PCR) NEGATIVE Influenza Type B (PCR) NEGATIVE RSV RNA Qual (PCR) NEGATIVE SARS-CoV-2 RNA (RT-PCR) NEGATIVE 01/17/24 01/17/24 01/17/24 07:00 08:51 10:03 MCV MCH MCHC RDW Plt Count MPV Immature Gran % (Auto) Neut % (Auto) Lymph % (Auto) [place] % (Auto) Eos % (Auto) Baso % (Auto) Lymph # (Auto) [place] # (Auto) Eos # (Auto) Baso # (Auto) Abs Immat Gran (auto) Absolute Neuts (auto) Absolute Nucleated RBC Nucleated RBC % (auto) VBG pH VBG pCO2 VBG pO2 VBG HCO3 VBG O2 Saturation VBG Base Excess Anion Gap 13 Estim Creat Clear Calc 50.1 Estimated GFR 49 POC Glucose 270 H 259 H Random Glucose 270 H Lactic Acid Lactic Acid F/U @ 2Hr Lactic Acid F/U @ 4Hr Calcium 8.5 D Magnesium 1.9 Total Bilirubin Direct Bilirubin AST ALT Alkaline Phosphatase Troponin I High Sens B-Natriuretic Peptide Total Protein Albumin Lipase Procalcitonin TSH Urine Color Urine Appearance Urine pH Ur Specific [place] Urine Protein Urine Glucose (UA) Urine Ketones Urine Blood Urine Nitrite Ur Leukocyte Esterase Urine RBC Urine WBC Ur Squamous Epith Cells Urine Bacteria Hyaline Casts Granular Casts Influenza Type A (PCR) Influenza Type B (PCR) RSV RNA Qual (PCR) SARS-CoV-2 RNA (RT-PCR) 01/17/24 01/17/24 01/17/24 10:06 11:55 12:33 MCV MCH MCHC RDW Plt Count MPV Immature Gran % (Auto) Neut % (Auto) Lymph % (Auto) [place] % (Auto) Eos % (Auto) Baso % (Auto) Lymph # (Auto) [place] # (Auto) Eos # (Auto) Baso # (Auto) Abs Immat Gran (auto) Absolute Neuts (auto) Absolute Nucleated RBC Nucleated RBC % (auto) VBG pH 7.59 H VBG pCO2 26 VBG pO2 217 VBG HCO3 25 VBG O2 Saturation 100.0 VBG Base Excess 4.6 Anion Gap Estim Creat Clear Calc Estimated GFR POC Glucose 192 H 210 H Random Glucose Lactic Acid Lactic Acid F/U @ 2Hr Lactic Acid F/U @ 4Hr Calcium Magnesium Total Bilirubin Direct Bilirubin AST ALT Alkaline Phosphatase Troponin I High Sens B-Natriuretic Peptide Total Protein Albumin Lipase Procalcitonin TSH Urine Color Urine Appearance Urine pH Ur Specific [place] Urine Protein Urine Glucose (UA) Urine Ketones Urine Blood Urine Nitrite Ur Leukocyte Esterase Urine RBC Urine WBC Ur Squamous Epith Cells Urine Bacteria Hyaline Casts Granular Casts Influenza Type A (PCR) Influenza Type B (PCR) RSV RNA Qual (PCR) SARS-CoV-2 RNA (RT-PCR) Microbiology Microbiology Results: Microbiology 01/16/24 21:53 Urine Culture - Preliminary Urine Catheterized - Singh Catheter No growth to date. Assessment and Plan (1) Pneumonia: Status: Acute Plan d2 78yo F LTC resident of [facility] with AF + hx DVT on Xarelto, recurrent UTIs, DM2, and schizoaffecive disorder presenting with hypoxia + AMS, found to have severe sepsis due to pneumonia severe sepsis and AHRF due to pneumonia - 01/15- vanco + cefepime - follow BCx, trend PCT, urinary antigens for Legionella and pneumococcus pending, Covid-19/flu/RSV negative - wean O2 as tolerated UTI - recently treated with ceftriaxone; on cefepime as above acute encephalopathy due to infection - treat infection as above; NPO until mental status improves AF/RVR - resume metoprolol for rate control, Xarelto for anticoagulation prerenal ANABELL - improving with fluid resuscitation acute hyperK - resolved after insulin and improvement in ANABELL hyperNa - resolved, encourage free water intake when more awake hx DVt - Xarelto DM2 - tamiko-dose lispro schizoaffective disorder - escitalopram VTE ppx - Xarelto dispo - eventual return to LTC In my clinical judgment, the patient requires continued inpatient hospitalization for the following reasons: IV ABX Total time managing care of this patient today: 50 minutes. Quality Stroke Does the patient have a stroke diagnosis?: No VTE Prior VTE?: Yes VTE Risk Level:: Medical - moderate - high VTE Device Contraindication: Treatment Not Indicated VTE Drug Contraindication: N/A - Med Ordered
[2024-01-17] MEDS: Rivaroxaban 20 MG TABLET PO (15:52)
[2024-01-17] MEDS: Metoprolol Tartrate 25 MG TABLET PO ×2 (15:54→21:39)
[2024-01-17 15:56] LABS: Glucose, Whole Blood 177 mg/dL (60-115)
[2024-01-17 16:26] LABS: Glucose, Whole Blood 171 mg/dL (60-115)
[2024-01-17] MEDS: cefEPime HCl 2 GM in 0.9 % Sodium Chloride 50 ML IV (18:04)
[2024-01-17 20:30] LABS: Glucose, Whole Blood 189 mg/dL (60-115)
[2024-01-17] MEDS: Magnesium Oxide 400 MG TABLET PO (21:39)
[2024-01-17] MEDS: vancomycin HCL 750 MG in 0.9 % Sodium Chloride 250 ML 265 MG IV (21:40)
[2024-01-17] MEDS: Atorvastatin Calcium 10 MG TABLET PO (21:40)
[2024-01-18] VITALS (8 sets, daily range): BP systolic 109–138; BP diastolic 49–81; PULSE 90–130; RESP 18–24; TEMP 36.4–37.1; O2SAT 96–98
[2024-01-18] MEDS: 0.9 % Sodium Chloride Flush 3 ML SYRINGE IVFLUSH ×4 (00:41→20:21)
[2024-01-18] MEDS: Dextrose 5 % and 0.45 % NaCl 1,000 ML 100 ML IVCONT (04:42)
[2024-01-18 06:50] LABS: Hematocrit 29.4 % (37.0-47.0); Hemoglobin 9.1 g/dl (12.0-16.0); Mean Corpuscular Hemoglobin 30.2 pg (27.0-33.0); Mean Corpuscular Volume 97.7 fL (80.0-98.0); Mean Platelet Volume 11.1 fL (9.4-12.3); Platelet Count 252 X10*3/uL (160-400); Red Blood Count 3.01 X10*6/uL (4.20-5.50); Red Cell Distribution Width 14.7 % (11.0-16.0); White Blood Count 12.5 X10*3/uL (4.8-10.8)
[2024-01-18] MEDS: Magnesium Oxide 400 MG TABLET PO ×2 (08:02→20:21)
[2024-01-18] MEDS: Escitalopram Oxalate 10 MG TABLET PO (08:02)
[2024-01-18] MEDS: Metoprolol Tartrate 25 MG TABLET PO ×2 (08:02→20:21)
[2024-01-18 08:13] LABS: Glucose, Whole Blood 220 mg/dL (60-115)
[2024-01-18] MEDS: Insulin Lispro 100 UNIT/ML 3 ML VIAL SUBCUT ×2 (08:15→20:27)
--- NOTE | 2024-01-18 08:56 | ECG_ITS ---
Test Reason : tachy Blood Pressure : / mmHG Vent. Rate : 155 BPM Atrial Rate : 000 BPM P-R Int : 000 ms QRS Dur : 082 ms QT Int : 280 ms P-R-T Axes : 000 -25 154 degrees QTc Int : 449 ms Atrial fibrillation with rapid ventricular response Nonspecific T wave changes Abnormal ECG When compared with ECG of 17-JAN-2024 08:55, No significant change was found Referred By: Sebastien Medina Electronically Signed By:Edison Maddox
[2024-01-18 10:50] LABS: Anion Gap 10 (12-20); Blood Urea Nitrogen 33 mg/dL (9-16); Calcium 8.9 mg/dL (8.4-10.2); Carbon Dioxide 29 mmol/L (22-29); Chloride 108 mmol/L (96-108); Creatinine Clr Calc Pharmacy 68.4; Estimated Glomerular Filt Rate > 60; Glucose Random 202 mg/dL (60-115); Potassium 3.9 mmol/L (3.3-5.1); Sodium 143 mmol/L (135-145)
[2024-01-18 11:17] LABS: Glucose, Whole Blood 150 mg/dL (60-115)
--- NOTE | 2024-01-18 11:29 | P.PNIM_ITS ---
Subjective Subjective Date of Service: 01/18/24 Interval History: more awake dyspnea + cough improved no fever BCx positive for GPCs Review of Systems Review of Systems: Yes all other systems are reviewed and are negative Physical Exam 2 Vital Signs: Vital Signs: Last Vital Signs Temp 98.5 F 01/18/24 11:26 Pulse 124 H 01/18/24 11:26 Resp 20 01/18/24 11:26 BP 121/72 01/18/24 11:26 Pulse Ox 97 01/18/24 11:26 O2 Del Method Nasal Cannula 01/18/24 11:26 O2 Flow Rate 2 01/18/24 11:26 BMI result Body Mass Index 33.0 Gen: NAD HEENT: sclera anicteric, moist mucus membranes Neck: supple Lungs: diminished R lung Heart: irregular, no murmurs Abd: soft, non-tender, non-distended Ext: no edema Skin: warm/well-perfused Neuro: alert, oriented to self, moving all extremities Psych: appropriate affect Objective Data Active Medications Acetaminophen (Acetaminophen Supp 650 Mg Supp.Rect) 650 mg DC Q6H PRN PRN Reason: mild pain, fever, hsu Albuterol Sulfate (Albuterol Sulfate (0.083%) 2.5 Mg/3 Ml Vial.Neb) 2.5 mg INHALE Q4H PRN PRN Reason: Shortness of Breath Atorvastatin Calcium (Atorvastatin Calcium 10 Mg Tablet) 10 mg PO BEDTIME [facility] Last Admin: 01/17/24 21:40 Dose: 10 mg Documented By: ELMA Bisacodyl (Bisacodyl 10 Mg Supp.Rect) 10 mg DC DAILY PRN PRN Reason: Constipation Calcium Carbonate (Calcium Carbonate 750 Mg Tab.Chew) 750 mg PO Q4H PRN PRN Reason: Heartburn Escitalopram Oxalate (Escitalopram Oxalate 10 Mg Tablet) 10 mg PO DAILY [facility] Last Admin: 01/18/24 08:02 Dose: 10 mg Documented By: ISAIAH Glucose (Glucose Gel 15 Gm Gel..Gram.) 15 gm PO Q15M PRN; Protocol PRN Reason: per Hypoglycemia Standing Ord. Cefepime HCl 2 gm/ Sodium (Chloride) 50 mls @ 100 mls/hr IV Q24H [facility] Last Infusion: 01/18/24 07:22 Dose: Infused Documented By: ELMA Vancomycin HCl 750 mg/ Sodium (Chloride) 265 mls @ 265 mls/hr IV Q24H [facility] Last Infusion: 01/18/24 00:42 Dose: Infused Documented By: ELMA Dextrose (D10) 250 mls @ 750 mls/hr IV Q15M PRN; Protocol PRN Reason: per Hypoglycemia Standing Ord. Insulin Human Lispro (Insulin Lispro 100 Unit/Ml 3 Ml Vial) 0 unit SUBCUT QIDACHS [facility]; Protocol Last Admin: 01/18/24 08:15 Dose: 4 unit Documented By: ISAIAH Magnesium Hydroxide (Milk Of Magnesia 30 Ml Oral.Susp) 30 ml PO DAILY PRN PRN Reason: Constipation Magnesium Oxide (Magnesium Oxide 400 Mg Tablet) 400 mg PO BID [facility] Last Admin: 01/18/24 08:02 Dose: 400 mg Documented By: ISAIAH Melatonin (Melatonin 3 Mg Tablet) 6 mg PO BEDTIME PRN PRN Reason: Insomnia Metoprolol Tartrate (Metoprolol Tartrate 25 Mg Tablet) 25 mg PO BID [facility]; Protocol Last Admin: 01/18/24 08:02 Dose: 25 mg Documented By: ISAIAH Pharmacy Consult (Consult Rx Vancomycin Dosing) 1 each MISCELLANE DAILY PRN PRN Reason: Consult order Rivaroxaban (Rivaroxaban 20 Mg Tablet) 20 mg PO DAILY@1700 [facility] Last Admin: 01/17/24 15:52 Dose: 20 mg Documented By: ROBERTA Senna (Sennosides 8.6 Mg Tablet) 17.2 mg PO DAILY PRN PRN Reason: No BM in 2 Days Sodium Biphosphate/Sodium Phosphate (Sodium Phosphate,[place]-Dibasic 133 Ml Enema) 117 ml DC DAILY PRN PRN Reason: Bowel Management Sodium Chloride (0.9 % Sodium Chloride Flush 3 Ml Syringe) 3 ml IVFLUSH QSHIFT [facility] Last Admin: 01/18/24 08:03 Dose: 3 ml Documented By: ISAIAH Labs 01/18/24 05:56 01/18/24 10:20 Labs: Laboratory Results - last 24 hr 01/17/24 01/17/24 01/17/24 11:55 12:33 15:52 MCV MCH MCHC RDW Plt Count MPV Absolute Nucleated RBC Nucleated RBC % (auto) Anion Gap Estim Creat Clear Calc Estimated GFR POC Glucose 192 H 210 H 177 H Random Glucose Calcium 01/17/24 01/17/24 01/18/24 16:20 20:24 05:56 MCV 97.7 MCH 30.2 MCHC 31.0 RDW 14.7 Plt Count 252 MPV 11.1 Absolute Nucleated RBC 0.000 Nucleated RBC % (auto) 0.0 Anion Gap Estim Creat Clear Calc Estimated GFR POC Glucose 171 H 189 H Random Glucose Calcium 01/18/24 01/18/24 01/18/24 08:09 10:20 11:12 MCV MCH MCHC RDW Plt Count MPV Absolute Nucleated RBC Nucleated RBC % (auto) Anion Gap 10 L Estim Creat Clear Calc 68.4 Estimated GFR > 60 POC Glucose 220 H 150 H Random Glucose 202 H Calcium 8.9 Microbiology Microbiology Results: Microbiology 01/16/24 16:55 Blood Culture - Preliminary Blood - Venous Gram positive cocci 01/16/24 16:55 Blood Culture - Final Blood - Venous Coag negative Staphylococcus 01/16/24 21:53 Urine Culture - Final Urine Catheterized - Singh Catheter Assessment and Plan (1) Pneumonia: Status: Acute Plan d3 78yo F LTC resident of [facility] [address] with AF + hx DVT on Xarelto, recurrent UTIs, DM2, and schizoaffecive disorder presenting with hypoxia + AMS, found to have severe sepsis due to pneumonia severe sepsis and AHRF due to pneumonia + GPC bacteremia - 01/15- vanco + cefepime - follow BCx + repeat tomorrow - trend PCT - urinary antigens for Legionella and pneumococcus pending, Covid-19/flu/RSV negative - wean O2 as tolerated UTI - recently treated with ceftriaxone; on cefepime as above acute encephalopathy due to infection - treat infection as above AF/RVR - resumed metoprolol for rate control, Xarelto for anticoagulation prerenal ANABELL - resolved fluid resuscitation acute hyperK - resolved after insulin and improvement in ANABELL hyperNa - resolved hx DVT - rivaroxaban DM2 - tamiko-dose lispro schizoaffective disorder - escitalopram VTE ppx - rivaroxaban dispo - eventual return to LTC In my clinical judgment, the patient requires continued inpatient hospitalization for the following reasons: IV ABX Total time managing care of this patient today: 35 minutes. Quality Stroke Does the patient have a stroke diagnosis?: No VTE Prior VTE?: Yes VTE Risk Level:: Medical - moderate - high VTE Device Contraindication: Treatment Not Indicated VTE Drug Contraindication: N/A - Med Ordered
[2024-01-18 11:30] LABS: Procalcitonin 4.14 ng/mL
[2024-01-18 11:51] LABS: Immature Retic Fraction 12.8 % (3.0-15.9); Retic HGB Equivalent 26.8 pg (30.0-35.0); Reticulocyte Percent 1.2 % (0.5-1.8); Reticulocytes Absolute 0.035 X10*6/uL (0.026-0.095)
[2024-01-18 12:00] LABS: Iron 15 mcg/dL (30-160); Lactate Dehydrogenase 166 U/L (122-220); Percent Iron Saturation 12 % (15-50); Total Iron Binding Capacity 125 mcg/dL (228-428); Unsaturated Iron Binding 110 ug/dL
[2024-01-18 12:19] LABS: Ferritin 470 ng/mL (10-250)
--- NOTE | 2024-01-18 12:22 | MHC.CM.PN ---
EMR reviewed and per MD rounds, pt is not medically cleared for discharge due to ongoing management of sepsis and pneumonia. Anticipating pt will be ready for discharge tomorrow 01/18, back to LTC at [facility].
[2024-01-18 15:20] LABS: Glucose, Whole Blood 129 mg/dL (60-115)
[2024-01-18] MEDS: Rivaroxaban 20 MG TABLET PO (17:15)
[2024-01-18] MEDS: cefEPime HCl 2 GM in 0.9 % Sodium Chloride 50 ML IV (17:15)
[2024-01-18] MEDS: Metoprolol Tartrate 5 MG/5 ML VIAL 2.5 MG IVPUSH (17:43)
[2024-01-18 18:40] LABS: Vancomycin Random 13.7 mcg/mL (15-20)
[2024-01-18] MEDS: Atorvastatin Calcium 10 MG TABLET PO (20:22)
[2024-01-18 20:28] LABS: Glucose, Whole Blood 184 mg/dL (60-115)
[2024-01-18] MEDS: vancomycin HCL 1,000 MG in 0.9 % Sodium Chloride 250 ML 270 MG IV (20:28)
[2024-01-19] VITALS (14 sets, daily range): BP systolic 128–157; BP diastolic 68–95; PULSE 99–140; RESP 18–36; TEMP 37–38.6; O2SAT 94–98
[2024-01-19] MEDS: Metoprolol Tartrate 5 MG/5 ML VIAL IVPUSH (01:59)
[2024-01-19] MEDS: Albumin Human 25 % 100 ML 133.33 ML IV ×2 (06:13→08:23)
[2024-01-19 06:59] LABS: Hematocrit 28.8 % (37.0-47.0); Hemoglobin 8.7 g/dl (12.0-16.0); Mean Corpuscular HGB Conc 30.2 g/dl (31.0-35.0); Mean Corpuscular Hemoglobin 29.2 pg (27.0-33.0); Mean Corpuscular Volume 96.6 fL (80.0-98.0); Platelet Count 292 X10*3/uL (160-400); Red Blood Count 2.98 X10*6/uL (4.20-5.50); Red Cell Distribution Width 14.9 % (11.0-16.0)
[2024-01-19 07:06] LABS: Anion Gap 15 (12-20); Blood Urea Nitrogen 28 mg/dL (9-16); Calcium 9.1 mg/dL (8.4-10.2); Carbon Dioxide 27 mmol/L (22-29); Chloride 108 mmol/L (96-108); Estimated Glomerular Filt Rate > 60; Glucose Random 208 mg/dL (60-115); Potassium 3.6 mmol/L (3.3-5.1); Sodium 146 mmol/L (135-145)
[2024-01-19 07:08] LABS: Glucose, Whole Blood 195 mg/dL (60-115)
[2024-01-19 07:44] LABS: Folate 8.3 ng/mL (> or = 4.0); Vitamin B12 321 pg/mL (200-900)
[2024-01-19] MEDS: 0.9 % Sodium Chloride Flush 3 ML SYRINGE IVFLUSH ×2 (08:24→21:21)
[2024-01-19] MEDS: Metoprolol Tartrate 5 MG/5 ML VIAL 2.5 MG IVPUSH (08:24)
[2024-01-19] MEDS: Escitalopram Oxalate 10 MG TABLET PO (08:24)
[2024-01-19] MEDS: Magnesium Oxide 400 MG TABLET PO ×2 (08:24→21:20)
[2024-01-19] MEDS: Insulin Lispro 100 UNIT/ML 3 ML VIAL SUBCUT ×4 (08:24→22:31)
[2024-01-19] MEDS: Metoprolol Tartrate 25 MG TABLET PO ×2 (09:47→21:20)
[2024-01-19] MEDS: Lactated Ringers 1,000 ML 125 ML IVCONT ×2 (10:27→18:12)
[2024-01-19 11:36] LABS: Glucose, Whole Blood 262 mg/dL (60-115)
--- NOTE | 2024-01-19 14:10 | MHC.SL.SWA ---
Speech Pathologist Impression: Risk of aspiration, oropharyngeal dysphagia Risk of Aspiration Due to: History of Pneumonia Dysphasia Diet Status: DOWNGRADE to NDD3 Liquid Consistency and Strategies for Safe Swallow: Liquid Intake Recommendation: Thin Liquid Intake Strategies: Small Sips No Straws Solid Food Consistency: Dietary Recommendations: Chopped/Advanced (NDD3) Additional Modifications to Solid Foods: Patient is a LTC resident at [facility]. She has history of refusing ground and pureed foods entirely and was recently upgraded to a regular texture finger foods at the facility in order to encourage PO intake. At baseline, she was tolerating thin liquids and was administered pills crushed, recently required total assistance feeding after becoming ill. CURING ROOM WORKER was consulted after nursing staff noted patient exhibited difficulty swallowing her pills last night and was coughing at breakfast. She was seen by CURING ROOM WORKER at lunch and demonstrated significantly prolonged oral phase, presence of oral residue, multiple swallow attempts, and belching with intake of liquids. Recommend DOWNGRADE from a regular texture diet to CHOPPED/ADVANCED (NDD3) solids and THIN liquids, pills to be CRUSHED in PUREE. Patient requires TOTAL ASSISTANCE feeding with strict precautions: moisten and soften food with sauces/gravies, give small bites, allow patient ample time to chew and swallow, check oral cavity for clearance periodically, alternate bites with sips of liquid to clear residue, ensure oral cavity is clear before giving more bites, upright 90 degree position during PO intake and for at least 30 minutes afterwards. Patient may benefit from smaller, more frequent meals throughout the day to reduce fatigue and encourage more PO given it takes patient a long time to finish a meal. Oral Medication Intake: Crushed with Puree Please contact the pharmacy regarding appropriate crushable or liquid drug formulations that are available whenever modified delivery is recommended. Compensatory Strategies and Precautions to be Taken for Safe Swallow: Sitting Upright (90 deg) No Straw Small Bites and Sips Alternate Liquids/Solids Rate of Ingestion Change Oral Check Avoid Specific Foods Supervision While Eating and Drinking for Safe Swallow: Total Assistance (1:1) Foods to Avoid: Hard, dry, or sticky foods; tough, difficult to chew solids Swallowing Recommended Treatments: Compens. Strategy Educat. Recommendation for Speech: Inpatient Speech Therapy Comment: CURING ROOM WORKER will continue to follow to re-assess diet modification and feeding needs. Frequency/Duration: M-F PRN Date Range for Service Req: Timeline to reassess: Director Of Radiology Clinican/Clinical Fellow: No Supervisory Statement: I have reviewed and agree with the student/clinical fellow's documentation: N/A Speech Language Pathologist: Jessica King M.A., CCC-CURING ROOM WORKER
--- NOTE | 2024-01-19 14:15 | P.PNIM_ITS ---
Subjective Subjective Date of Service: 01/19/24 Interval History: Awake; will respond with 1 word answers Review of Systems Unable to obtain Physical Exam 2 Vital Signs: Vital Signs: Last Vital Signs Temp 99.2 F 01/19/24 12:00 Pulse 121 H 01/19/24 12:00 Resp 20 01/19/24 12:00 BP 128/69 01/19/24 12:00 Pulse Ox 95 01/19/24 12:00 O2 Del Method Nasal Cannula 01/19/24 12:00 O2 Flow Rate 2 01/19/24 12:00 BMI result Body Mass Index 33.0 Const: Other: Awake; eyes track with verbal stimuli Resp: Other: Right basilar crackles otherwise clear Cardio: Other: No S4; positive S1-S2; no S3 murmurs rubs or gallops GI: Other: Soft nontender nondistended normoactive bowel sounds Extrem: Other: No edema bilaterally Objective Data Active Medications Acetaminophen (Acetaminophen Supp 650 Mg Supp.Rect) 650 mg [place] Q6H PRN PRN Reason: mild pain, fever, hsu Albuterol Sulfate (Albuterol Sulfate (0.083%) 2.5 Mg/3 Ml Vial.Neb) 2.5 mg INHALE Q4H PRN PRN Reason: Shortness of Breath Atorvastatin Calcium (Atorvastatin Calcium 10 Mg Tablet) 10 mg PO BEDTIME [facility] Last Admin: 01/18/24 20:22 Dose: 10 mg Documented By: RAE Bisacodyl (Bisacodyl 10 Mg Supp.Rect) 10 mg [place] DAILY PRN PRN Reason: Constipation Calcium Carbonate (Calcium Carbonate 750 Mg Tab.Chew) 750 mg PO Q4H PRN PRN Reason: Heartburn Escitalopram Oxalate (Escitalopram Oxalate 10 Mg Tablet) 10 mg PO DAILY [facility] Last Admin: 01/19/24 08:24 Dose: 10 mg Documented By: RJ Glucose (Glucose Gel 15 Gm Gel..Gram.) 15 gm PO Q15M PRN; Protocol PRN Reason: per Hypoglycemia Standing Ord. Cefepime HCl 2 gm/ Sodium (Chloride) 50 mls @ 100 mls/hr IV Q24H [facility] Last Infusion: 01/18/24 17:46 Dose: Infused Documented By: ISAIAH Dextrose (D10) 250 mls @ 750 mls/hr IV Q15M PRN; Protocol PRN Reason: per Hypoglycemia Standing Ord. Vancomycin HCl 1,000 mg/ (Sodium Chloride) 270 mls @ 270 mls/hr IV Q24H [facility] Last Infusion: 01/18/24 21:28 Dose: Infused Documented By: RAE Lactated Ringer's (Lr) 1,000 mls @ 125 mls/hr IVCONT .Q8H [facility] Last Admin: 01/19/24 10:27 Dose: 125 mls/hr Documented By: RJ Insulin Human Lispro (Insulin Lispro 100 Unit/Ml 3 Ml Vial) 0 unit SUBCUT QIDACHS [facility]; Protocol Last Admin: 01/19/24 13:10 Dose: 6 unit Documented By: RJ Magnesium Hydroxide (Milk Of Magnesia 30 Ml Oral.Susp) 30 ml PO DAILY PRN PRN Reason: Constipation Magnesium Oxide (Magnesium Oxide 400 Mg Tablet) 400 mg PO BID [facility] Last Admin: 01/19/24 08:24 Dose: 400 mg Documented By: RJ Melatonin (Melatonin 3 Mg Tablet) 6 mg PO BEDTIME PRN PRN Reason: Insomnia Metoprolol Tartrate (Metoprolol Tartrate 25 Mg Tablet) 25 mg PO BID [facility]; Protocol Last Admin: 01/19/24 09:47 Dose: 25 mg Documented By: RJ Pharmacy Consult (Consult Rx Vancomycin Dosing) 1 each MISCELLANE DAILY PRN PRN Reason: Consult order Rivaroxaban (Rivaroxaban 20 Mg Tablet) 20 mg PO DAILY@1700 [facility] Last Admin: 01/18/24 17:15 Dose: 20 mg Documented By: ISAIAH Senna (Sennosides 8.6 Mg Tablet) 17.2 mg PO DAILY PRN PRN Reason: No BM in 2 Days Sodium Biphosphate/Sodium Phosphate (Sodium Phosphate,[place]-Dibasic 133 Ml Enema) 117 ml [place] DAILY PRN PRN Reason: Bowel Management Sodium Chloride (0.9 % Sodium Chloride Flush 3 Ml Syringe) 3 ml IVFLUSH QSHIFT [facility] Last Admin: 01/19/24 08:24 Dose: 3 ml Documented By: RJ Labs 01/19/24 06:42 01/19/24 06:42 Labs: Laboratory Results - last 24 hr 01/18/24 01/18/24 01/18/24 15:16 18:02 20:16 MCV MCH MCHC RDW Plt Count MPV Absolute Nucleated RBC Nucleated RBC % (auto) Anion Gap Estim Creat Clear Calc Estimated GFR POC Glucose 129 H 184 H Random Glucose Lactic Acid Calcium Vitamin B12 Folate Random Vancomycin 13.7 L 01/19/24 01/19/24 01/19/24 06:42 07:03 11:30 MCV 96.6 MCH 29.2 MCHC 30.2 L RDW 14.9 Plt Count 292 MPV 11.0 Absolute Nucleated RBC 0.000 Nucleated RBC % (auto) 0.0 Anion Gap 15 Estim Creat Clear Calc 74.0 Estimated GFR > 60 POC Glucose 195 H 262 H Random Glucose 208 H Lactic Acid 1.0 Calcium 9.1 Vitamin B12 321 Folate 8.3 Random Vancomycin Microbiology Microbiology Results: Microbiology 01/16/24 16:55 Blood Culture - Preliminary Blood - Venous Enterococcus faecalis 01/16/24 16:55 Blood Culture - Final Blood - Venous Coag negative Staphylococcus Assessment and Plan (1) Pneumonia: Status: Acute (2) ANABELL (acute kidney injury): Status: Acute Plan 78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 ANABELL - resolved secondary to volume -follow renals/divalents 5.DM II -acceptable control on current therapies -lispro correctional scale -adjust as indicated Rivaroxaban Full Code In my clinical judgment, the patient requires continued inpatient hospitalization for the following reasons: IV ABX Quality Stroke Does the patient have a stroke diagnosis?: No VTE Prior VTE?: Yes VTE Risk Level:: Medical - moderate - high VTE Device Contraindication: Treatment Not Indicated VTE Drug Contraindication: N/A - Med Ordered
[2024-01-19 16:01] LABS: Glucose, Whole Blood 210 mg/dL (60-115)
[2024-01-19] MEDS: cefEPime HCl 2 GM in 0.9 % Sodium Chloride 50 ML IV (16:40)
[2024-01-19] MEDS: Acetaminophen Supp 650 MG SUPP.RECT PR ×2 (16:41→22:55)
[2024-01-19] MEDS: Rivaroxaban 20 MG TABLET PO (16:41)
--- NOTE | 2024-01-19 18:42 | PC.NURSE ---
Patient's HR been sustaining in the 110/120's throughout the day. At times patient HR will go to the 140/150's. MD notified and metoprolol 2.5mg IV given. Medication had good effect for 1 hour and then HR returned to the 120's. PO metoprolol given as well. Patient temp also fluctuating rectal 101.0 Tylenol given and decreased to 100.4 rectal, MD notified. Patient started on fluids, LR @ 125/hr. Concern for patient going into fluid overload, MD notified and asked if wanting to decrease/pause fluids.
--- NOTE | 2024-01-19 19:09 | HE.PHANOTE ---
Trough returned at 11. Renal function is improving. Dose increased to 1,250mg q24h, with predicted AUC 468, and predicted trough 13.3. Next trough 8/2 at 1800.
[2024-01-19 20:11] LABS: Glucose, Whole Blood 213 mg/dL (60-115)
[2024-01-19] MEDS: Atorvastatin Calcium 10 MG TABLET PO (21:20)
[2024-01-19] MEDS: vancomycin HCL 1,250 MG in 0.9 % Sodium Chloride 250 ML 166.67 MG IV (21:21)
[2024-01-20] VITALS (9 sets, daily range): BP systolic 112–159; BP diastolic 72–98; PULSE 85–112; RESP 18–32; TEMP 36.7–38.3; O2SAT 95–96
[2024-01-20] MEDS: Acetaminophen Supp 650 MG SUPP.RECT PR ×3 (04:43→17:13)
[2024-01-20 05:08] LABS: Strep Pneumo Ag urine Not Detected (Not Detected)
[2024-01-20 06:05] LABS: MANUAL DIFF FLAG NO
[2024-01-20 06:09] LABS: Basophils Percent Auto 0.2 % (0-2); Hemoglobin 8.7 g/dl (12.0-16.0); Imm Gran Abs Auto 0.19 X10*3/uL (0.00-0.03); Imm Gran Pct Auto 1.3 % (0.0-0.4); Lymphocytes Absolute Auto 0.6 X10*3/uL (1.2-4.9); Mean Corpuscular HGB Conc 31.1 g/dl (31.0-35.0); Mean Corpuscular Hemoglobin 29.9 pg (27.0-33.0); Mean Corpuscular Volume 96.2 fL (80.0-98.0); Mean Platelet Volume 11.2 fL (9.4-12.3); Monocytes Absolute Auto 0.7 X10*3/uL (0.1-1.2); Monocytes Percent Auto 4.6 % (2-11); Neutrophils Absolute Auto 13.6 x10*3/uL (2.0-8.3); Neutrophils Percent Auto 89.9 % (45-73); Platelet Count 269 X10*3/uL (160-400); Red Blood Count 2.91 X10*6/uL (4.20-5.50); Red Cell Distribution Width 15.1 % (11.0-16.0); White Blood Count 15.1 X10*3/uL (4.8-10.8)
[2024-01-20 06:26] LABS: Alanine Aminotransferase 34 U/L (0-31); Albumin Level 3.1 g/dL (3.5-5.0); Alkaline Phosphatase 99 U/L (39-117); Anion Gap 11 (12-20); Aspartate Amino Transferase 38 U/L (5-31); Bilirubin Total 0.6 mg/dL (0.0-1.0); Blood Urea Nitrogen 24 mg/dL (9-16); Calcium 8.6 mg/dL (8.4-10.2); Carbon Dioxide 30 mmol/L (22-29); Chloride 109 mmol/L (96-108); Estimated Glomerular Filt Rate > 60; Glucose Fasting 255 mg/dL (60-99); Potassium 3.1 mmol/L (3.3-5.1); Sodium 147 mmol/L (135-145); Total Protein 6.7 g/dL (6.5-8.0)
[2024-01-20 07:49] LABS: Glucose, Whole Blood 242 mg/dL (60-115)
[2024-01-20] MEDS: Insulin Lispro 100 UNIT/ML 3 ML VIAL SUBCUT ×4 (08:29→21:43)
[2024-01-20] MEDS: Escitalopram Oxalate 10 MG TABLET PO (08:30)
[2024-01-20] MEDS: Magnesium Oxide 400 MG TABLET PO ×2 (08:30→21:33)
[2024-01-20] MEDS: 0.9 % Sodium Chloride Flush 3 ML SYRINGE IVFLUSH ×2 (08:30→16:53)
[2024-01-20] MEDS: Metoprolol Tartrate 25 MG TABLET PO ×2 (08:30→21:32)
[2024-01-20] MEDS: Digoxin 0.5 MG/2 ML AMPUL 0.25 MG IVPUSH ×3 (11:14→21:33)
--- NOTE | 2024-01-20 11:29 | MHC.SL.SWA ---
Speech Pathologist Impression: Risk of aspiration, oropharyngeal dysphagia Risk of Aspiration Due to: History of Pneumonia Dysphasia Diet Status: No changes at this time Liquid Consistency and Strategies for Safe Swallow: Liquid Intake Recommendation: Thin Liquid Intake Strategies: Small Sips No Straws Solid Food Consistency: Dietary Recommendations: Chopped/Advanced (NDD3) Additional Modifications to Solid Foods: Patient demonstrates significantly prolonged oral phase, presence of oral residue, multiple swallow attempts, and belching with intake of liquids. Recommend CONTINUE on CHOPPED/ADVANCED (NDD3) solids and THIN liquids, pills to be CRUSHED in PUREE. Patient requires TOTAL ASSISTANCE feeding with strict precautions: moisten and soften food with sauces/gravies, give small bites, allow patient ample time to chew and swallow, check oral cavity for clearance periodically, alternate bites with sips of liquid to clear residue, ensure oral cavity is clear before giving more bites, upright 90 degree position during PO intake and for at least 30 minutes afterwards. Patient may benefit from smaller, more frequent meals throughout the day to reduce fatigue and encourage more PO given it takes patient a long time to finish a meal. Oral Medication Intake: Crushed with Puree Please contact the pharmacy regarding appropriate crushable or liquid drug formulations that are available whenever modified delivery is recommended. Compensatory Strategies and Precautions to be Taken for Safe Swallow: Sitting Upright (90 deg) No Straw Small Bites and Sips Alternate Liquids/Solids Rate of Ingestion Change Oral Check Avoid Specific Foods Supervision While Eating and Drinking for Safe Swallow: Total Assistance (1:1) Foods to Avoid: Hard, dry, or sticky foods; tough, difficult to chew solids Swallowing Recommended Treatments: Compens. Strategy Educat. Recommendation for Speech: Inpatient Speech Therapy Comment: FACSIMILE OPERATOR will continue to follow to re-assess diet modification and feeding needs. Frequency/Duration: M-F PRN Date Range for Service Req: Timeline to reassess: Banquet Houseperson Clinican/Clinical Fellow: No Supervisory Statement: I have reviewed and agree with the student/clinical fellow's documentation: N/A Speech Language Pathologist: Jessica King M.A., [facility]-FACSIMILE OPERATOR
[2024-01-20 12:18] LABS: Glucose, Whole Blood 219 mg/dL (60-115)
--- NOTE | 2024-01-20 12:33 | MHC.CM.PN ---
EMR REVIEWED, PER HOSPITALIST PLAN FOR DISCUSSION W/PT'S HCP [facility] [phone] TO CHANGE PT TO DNI/DNR, ANTIC PT WILL BE MEDICALLY CLEARED OVER W/E, CM WILL CONT TO FOLLOW DC NEEDS.
--- NOTE | 2024-01-20 15:12 | HO.PM.IMPN ---
Subjective Subjective Date of Service: 01/20/24 Interval History: Awake; will respond with 1 word answers Review of Systems Unable to obtain Physical Exam Vital Signs: Vital Signs: Last Vital Signs Temp 98.6 F 01/20/24 12:00 Pulse 85 01/20/24 12:00 Resp 18 01/20/24 12:00 BP 145/88 H 01/20/24 12:00 Pulse Ox 95 01/20/24 12:00 O2 Del Method Room Air 01/20/24 12:00 O2 Flow Rate 2 01/20/24 03:44 BMI result Body Mass Index 33.0 Const: Other: Awake; eyes track with verbal stimuli Resp: Other: Right basilar crackles otherwise clear Cardio: Other: No S4; positive S1-S2; no S3 murmurs rubs or gallops GI: Other: Soft nontender nondistended normoactive bowel sounds Extrem: Other: No edema bilaterally Objective Data Active Medications Acetaminophen (Acetaminophen Supp 650 Mg Supp.Rect) 650 mg DC Q6H PRN PRN Reason: mild pain, fever, hsu Last Admin: 01/20/24 11:08 Dose: 650 mg Documented By: RJ Albuterol Sulfate (Albuterol Sulfate (0.083%) 2.5 Mg/3 Ml Vial.Neb) 2.5 mg INHALE Q4H PRN PRN Reason: Shortness of Breath Atorvastatin Calcium (Atorvastatin Calcium 10 Mg Tablet) 10 mg PO BEDTIME [facility] Last Admin: 01/19/24 21:20 Dose: 10 mg Documented By: RAE Bisacodyl (Bisacodyl 10 Mg Supp.Rect) 10 mg [place] DAILY PRN PRN Reason: Constipation Calcium Carbonate (Calcium Carbonate 750 Mg Tab.Chew) 750 mg PO Q4H PRN PRN Reason: Heartburn Digoxin (Digoxin 0.5 Mg/2 Ml Ampul) 0.25 mg IVPUSH Q6H [facility] Stop: 01/20/24 22:01 Last Admin: 01/20/24 11:14 Dose: 0.25 mg Documented By: RJ Escitalopram Oxalate (Escitalopram Oxalate 10 Mg Tablet) 10 mg PO DAILY [facility] Last Admin: 01/20/24 08:30 Dose: 10 mg Documented By: RJ Glucose (Glucose Gel 15 Gm Gel..Gram.) 15 gm PO Q15M PRN; Protocol PRN Reason: per Hypoglycemia Standing Ord. Dextrose (D10) 250 mls @ 750 mls/hr IV Q15M PRN; Protocol PRN Reason: per Hypoglycemia Standing Ord. Lactated Ringer's (Lr) 1,000 mls @ 125 mls/hr IVCONT .Q8H [facility] Last Admin: 01/20/24 08:31 Dose: Not Given Documented By: JR Non-Admin Reason: fluids paused per Vancomycin HCl 1,250 mg/ (Sodium Chloride) 250 mls @ 166.667 mls/hr IV Q24H [facility] Last Infusion: 01/19/24 22:51 Dose: Infused Documented By: RAE Cefepime HCl 2 gm/ Sodium (Chloride) 50 mls @ 100 mls/hr IV Q8H [facility] Insulin Human Lispro (Insulin Lispro 100 Unit/Ml 3 Ml Vial) 0 unit SUBCUT QIDACHS [facility]; Protocol Last Admin: 01/20/24 12:24 Dose: 4 unit Documented By: RJ Magnesium Hydroxide (Milk Of Magnesia 30 Ml Oral.Susp) 30 ml PO DAILY PRN PRN Reason: Constipation Magnesium Oxide (Magnesium Oxide 400 Mg Tablet) 400 mg PO BID [facility] Last Admin: 01/20/24 08:30 Dose: 400 mg Documented By: RJ Melatonin (Melatonin 3 Mg Tablet) 6 mg PO BEDTIME PRN PRN Reason: Insomnia Metoprolol Tartrate (Metoprolol Tartrate 25 Mg Tablet) 25 mg PO BID [facility]; Protocol Last Admin: 01/20/24 08:30 Dose: 25 mg Documented By: RJ Pharmacy Consult (Consult Rx Vancomycin Dosing) 1 each MISCELLANE DAILY PRN PRN Reason: Consult order Rivaroxaban (Rivaroxaban 20 Mg Tablet) 20 mg PO DAILY@1700 [facility] Last Admin: 01/19/24 16:41 Dose: 20 mg Documented By: RJ Senna (Sennosides 8.6 Mg Tablet) 17.2 mg PO DAILY PRN PRN Reason: No BM in 2 Days Sodium Biphosphate/Sodium Phosphate (Sodium Phosphate,[place]-Dibasic 133 Ml Enema) 117 ml [place] DAILY PRN PRN Reason: Bowel Management Sodium Chloride (0.9 % Sodium Chloride Flush 3 Ml Syringe) 3 ml IVFLUSH QSHIFT [facility] Last Admin: 01/20/24 08:30 Dose: 3 ml Documented By: RJ Labs 01/20/24 05:00 01/20/24 05:00 Labs: Laboratory Results - last 24 hr 01/16/24 01/19/24 01/19/24 21:08 15:57 18:02 MCV MCH MCHC RDW Plt Count MPV Immature Gran % (Auto) Neut % (Auto) Lymph % (Auto) [place] % (Auto) Eos % (Auto) Baso % (Auto) Lymph # (Auto) [place] # (Auto) Eos # (Auto) Baso # (Auto) Abs Immat Gran (auto) Absolute Neuts (auto) Absolute Nucleated RBC Nucleated RBC % (auto) Anion Gap Estim Creat Clear Calc Estimated GFR POC Glucose 210 H Fasting Glucose Calcium Total Bilirubin AST ALT Alkaline Phosphatase Total Protein Albumin Random Vancomycin 11.0 L Ur Strep pneumoniae Ag Not Detected 01/19/24 01/20/24 01/20/24 20:05 05:00 07:41 MCV 96.2 MCH 29.9 MCHC 31.1 RDW 15.1 Plt Count 269 MPV 11.2 Immature Gran % (Auto) 1.3 H Neut % (Auto) 89.9 H Lymph % (Auto) 4.0 L [place] % (Auto) 4.6 Eos % (Auto) 0.0 Baso % (Auto) 0.2 Lymph # (Auto) 0.6 L [place] # (Auto) 0.7 Eos # (Auto) 0.0 Baso # (Auto) 0.0 Abs Immat Gran (auto) 0.19 H Absolute Neuts (auto) 13.6 H Absolute Nucleated RBC 0.000 Nucleated RBC % (auto) 0.0 Anion Gap 11 L Estim Creat Clear Calc 73.0 Estimated GFR > 60 POC Glucose 213 H 242 H Fasting Glucose 255 H Calcium 8.6 Total Bilirubin 0.6 AST 38 H ALT 34 H Alkaline Phosphatase 99 Total Protein 6.7 Albumin 3.1 L Random Vancomycin Ur Strep pneumoniae Ag 01/20/24 12:11 MCV MCH MCHC RDW Plt Count MPV Immature Gran % (Auto) Neut % (Auto) Lymph % (Auto) [place] % (Auto) Eos % (Auto) Baso % (Auto) Lymph # (Auto) [place] # (Auto) Eos # (Auto) Baso # (Auto) Abs Immat Gran (auto) Absolute Neuts (auto) Absolute Nucleated RBC Nucleated RBC % (auto) Anion Gap Estim Creat Clear Calc Estimated GFR POC Glucose 219 H Fasting Glucose Calcium Total Bilirubin AST ALT Alkaline Phosphatase Total Protein Albumin Random Vancomycin Ur Strep pneumoniae Ag Microbiology Microbiology Results: Microbiology 01/19/24 06:41 Blood Culture - Preliminary Blood - Venous No growth after 24 hours. 01/19/24 06:42 Blood Culture - Preliminary Blood - Venous No growth after 24 hours. 01/16/24 16:55 Blood Culture - Preliminary Blood - Venous Enterococcus faecalis Assessment and Plan (1) Pneumonia: Status: Acute (2) ANABELL (acute kidney injury): Status: Acute Plan 78yo F LTC resident of [facility] with AF + hx DVT on Xarelto, recurrent UTIs, DM2, and schizoaffecive disorder presenting with hypoxia + AMS, found to have severe sepsis due to pneumonia 1.RLL pneumonia/GPC bacteremia (sepsis resolved) - vanco/cefepime(5) - wean O2 as tolerated 2.UTI/Enterococcus bacteremia - recently treated with ceftriaxone; on cefepime as above -repeat cultures to document clearance 3.AF/RVR -acceptable control on current therapies -continue Xarelto -adjust therapies as clinically indicated 4. ANABELL - resolved secondary to volume -follow renals/divalents 5.DM II -acceptable control on current therapies -lispro correctional scale -adjust as indicated Rivaroxaban Full Code In my clinical judgment, the patient requires continued inpatient hospitalization for the following reasons: IV ABX Quality Stroke Does the patient have a stroke diagnosis?: No VTE Prior VTE?: Yes VTE Risk Level:: Medical - moderate - high VTE Device Contraindication: Treatment Not Indicated VTE Drug Contraindication: N/A - Med Ordered
[2024-01-20 16:15] LABS: Glucose, Whole Blood 272 mg/dL (60-115)
[2024-01-20] MEDS: cefEPime HCl 2 GM in 0.9 % Sodium Chloride 50 ML IV ×2 (16:52→23:58)
[2024-01-20] MEDS: Rivaroxaban 20 MG TABLET PO (16:52)
[2024-01-20 19:23] LABS: Vancomycin Random 12.6 mcg/mL (15-20)
--- NOTE | 2024-01-20 19:36 | HE.PHANOTE ---
Re: Vanco Trough returned at 12.6. Renal improving. Continue dose of 1250mg q24h, with predicted AUC 467, and predicted trough of 13.2. Next trough to be drawn 01/20 at 1800.
[2024-01-20 20:37] LABS: Glucose, Whole Blood 248 mg/dL (60-115)
[2024-01-20] MEDS: vancomycin HCL 1,250 MG in 0.9 % Sodium Chloride 250 ML 166.67 MG IV (21:26)
[2024-01-20] MEDS: Atorvastatin Calcium 10 MG TABLET PO (21:32)
[2024-01-21] VITALS (8 sets, daily range): BP systolic 106–156; BP diastolic 62–83; PULSE 71–103; RESP 17–28; TEMP 36.6–37.1; O2SAT 92–98
[2024-01-21] MEDS: 0.9 % Sodium Chloride Flush 3 ML SYRINGE IVFLUSH ×3 (00:13→14:21)
[2024-01-21 07:37] LABS: MANUAL DIFF FLAG NO
[2024-01-21 07:46] LABS: Basophils Percent Auto 0.1 % (0-2); Eosinophils Percent Auto 0.1 % (0-4); Hematocrit 27.6 % (37.0-47.0); Hemoglobin 8.7 g/dl (12.0-16.0); Imm Gran Abs Auto 0.26 X10*3/uL (0.00-0.03); Imm Gran Pct Auto 1.9 % (0.0-0.4); Lymphocytes Absolute Auto 0.7 X10*3/uL (1.2-4.9); Lymphocytes Percent Auto 5.3 % (20-40); Mean Corpuscular HGB Conc 31.5 g/dl (31.0-35.0); Mean Corpuscular Volume 95.2 fL (80.0-98.0); Mean Platelet Volume 11.4 fL (9.4-12.3); Monocytes Absolute Auto 0.8 X10*3/uL (0.1-1.2); Monocytes Percent Auto 6.1 % (2-11); NRBC Pct Auto 0.2 /100WBC (0.0-0.2); Neutrophils Percent Auto 86.5 % (45-73); Platelet Count 282 X10*3/uL (160-400); White Blood Count 13.9 X10*3/uL (4.8-10.8)
[2024-01-21 07:49] LABS: Glucose, Whole Blood 225 mg/dL (60-115)
[2024-01-21 07:57] LABS: Alanine Aminotransferase 37 U/L (0-31); Albumin Level 2.9 g/dL (3.5-5.0); Alkaline Phosphatase 101 U/L (39-117); Anion Gap 13 (12-20); Aspartate Amino Transferase 28 U/L (5-31); Bilirubin Total 0.5 mg/dL (0.0-1.0); Blood Urea Nitrogen 19 mg/dL (9-16); Calcium 8.8 mg/dL (8.4-10.2); Carbon Dioxide 30 mmol/L (22-29); Chloride 106 mmol/L (96-108); Creatinine Clr Calc Pharmacy 75.1; Estimated Glomerular Filt Rate > 60; Glucose Fasting 246 mg/dL (60-99); Sodium 146 mmol/L (135-145); Total Protein 6.5 g/dL (6.5-8.0)
[2024-01-21] MEDS: Insulin Lispro 100 UNIT/ML 3 ML VIAL SUBCUT ×2 (08:12→21:37)
[2024-01-21] MEDS: Magnesium Oxide 400 MG TABLET PO ×2 (08:12→21:32)
[2024-01-21] MEDS: Metoprolol Tartrate 25 MG TABLET PO ×2 (08:12→21:33)
[2024-01-21] MEDS: cefEPime HCl 2 GM in 0.9 % Sodium Chloride 50 ML IV ×3 (08:13→21:38)
[2024-01-21] MEDS: Escitalopram Oxalate 10 MG TABLET PO (08:13)
--- NOTE | 2024-01-21 10:17 | P.CDIM_ITS ---
PROVIDER RESPONSE TEXT: To clarify, the appropriate diagnosis supported by the clinical indicators: Anemia (other specific) QUERY TEXT: PHYSICIAN'S DOCUMENTATION REQUEST Date of Query: 01/20/2024 07:22 AM EDT Patient Name: Amarilys Badillo Admit Date: 01/16/2024 Dear Sebastien Medina DO, A review of the medical record indicates additional documentation may be needed. Please review below and update the documentation accordingly. Clinical Indicators: Progress note dated 01/17 - Anemia, monitor H/H, check FOBT + B12/FA, iron studies LABS: Iron 15 L Based on the above, could you clarify which of the following is the most likely type of anemia you ar e evaluating, treating, and/or monitoring? Iron deficiency anemia possible, suspected, probable etc. Anemia (other specific) Other (explain) Clinically unable to determine (explain) Thank you, Juliet Dela Cruz, CCS, CDIS Use of terms such as suspected, likely, concern for, or probable (associated with a specific diagnosi s that is being evaluated, monitored, or treated as if it exists) are acceptable and can be coded in the inpatient se tting, when documented at the time of discharge. Please use your independent medical judgment in providing your response. THIS QUERY IS PART OF THE PERMANENT MEDICAL RECORD
[2024-01-21 11:49] LABS: Glucose, Whole Blood 196 mg/dL (60-115)
--- NOTE | 2024-01-21 12:26 | P.PNIM_ITS ---
Subjective Subjective Date of Service: 01/21/24 Interval History: More alert today however had coughing episode when attempting breakfast/liquids Review of Systems Unable to obtain Physical Exam 2 Vital Signs: Vital Signs: Last Vital Signs Temp 97.9 F 01/21/24 11:38 Pulse 88 01/21/24 11:38 Resp 17 01/21/24 11:38 BP 125/76 01/21/24 11:38 Pulse Ox 92 01/21/24 11:38 O2 Del Method Nasal Cannula 01/21/24 11:38 O2 Flow Rate 2 01/21/24 11:38 BMI result Body Mass Index 33.0 Const: Other: Awake; eyes track with verbal stimuli Resp: Other: Right basilar crackles otherwise clear Cardio: Other: No S4; positive S1-S2; no S3 murmurs rubs or gallops GI: Other: Soft nontender nondistended normoactive bowel sounds Extrem: Other: No edema bilaterally Objective Data Active Medications Acetaminophen (Acetaminophen Supp 650 Mg Supp.Rect) 650 mg [place] Q6H PRN PRN Reason: mild pain, fever, hsu Last Admin: 01/20/24 17:13 Dose: 650 mg Documented By: RJ Albuterol Sulfate (Albuterol Sulfate (0.083%) 2.5 Mg/3 Ml Vial.Neb) 2.5 mg INHALE Q4H PRN PRN Reason: Shortness of Breath Atorvastatin Calcium (Atorvastatin Calcium 10 Mg Tablet) 10 mg PO BEDTIME [facility] Last Admin: 01/20/24 21:32 Dose: 10 mg Documented By: DEMARIO Bisacodyl (Bisacodyl 10 Mg Supp.Rect) 10 mg [place] DAILY PRN PRN Reason: Constipation Calcium Carbonate (Calcium Carbonate 750 Mg Tab.Chew) 750 mg PO Q4H PRN PRN Reason: Heartburn Escitalopram Oxalate (Escitalopram Oxalate 10 Mg Tablet) 10 mg PO DAILY [facility] Last Admin: 01/21/24 08:13 Dose: 10 mg Documented By: SHANTELL Glucose (Glucose Gel 15 Gm Gel..Gram.) 15 gm PO Q15M PRN; Protocol PRN Reason: per Hypoglycemia Standing Ord. Dextrose (D10) 250 mls @ 750 mls/hr IV Q15M PRN; Protocol PRN Reason: per Hypoglycemia Standing Ord. Vancomycin HCl 1,250 mg/ (Sodium Chloride) 250 mls @ 166.667 mls/hr IV Q24H [facility] Last Infusion: 01/20/24 22:56 Dose: Infused Documented By: DEMARIO Cefepime HCl 2 gm/ Sodium (Chloride) 50 mls @ 100 mls/hr IV Q8H [facility] Last Infusion: 01/21/24 08:43 Dose: Infused Documented By: SHANTELL Insulin Human Lispro (Insulin Lispro 100 Unit/Ml 3 Ml Vial) 0 unit SUBCUT QIDACHS [facility]; Protocol Last Admin: 01/21/24 11:51 Dose: Not Given Documented By: SHANTELL Non-Admin Reason: NPO Magnesium Hydroxide (Milk Of Magnesia 30 Ml Oral.Susp) 30 ml PO DAILY PRN PRN Reason: Constipation Magnesium Oxide (Magnesium Oxide 400 Mg Tablet) 400 mg PO BID [facility] Last Admin: 01/21/24 08:12 Dose: 400 mg Documented By: SHANTELL Melatonin (Melatonin 3 Mg Tablet) 6 mg PO BEDTIME PRN PRN Reason: Insomnia Metoprolol Tartrate (Metoprolol Tartrate 25 Mg Tablet) 25 mg PO BID [facility]; Protocol Last Admin: 01/21/24 08:12 Dose: 25 mg Documented By: SHANTELL Pharmacy Consult (Consult Rx Vancomycin Dosing) 1 each MISCELLANE DAILY PRN PRN Reason: Consult order Rivaroxaban (Rivaroxaban 20 Mg Tablet) 20 mg PO DAILY@1700 [facility] Last Admin: 01/20/24 16:52 Dose: 20 mg Documented By: RJ Senna (Sennosides 8.6 Mg Tablet) 17.2 mg PO DAILY PRN PRN Reason: No BM in 2 Days Sodium Biphosphate/Sodium Phosphate (Sodium Phosphate,[place]-Dibasic 133 Ml Enema) 117 ml [place] DAILY PRN PRN Reason: Bowel Management Sodium Chloride (0.9 % Sodium Chloride Flush 3 Ml Syringe) 3 ml IVFLUSH QSHIFT [facility] Last Admin: 01/21/24 08:13 Dose: 3 ml Documented By: SHANTELL Labs 01/21/24 07:13 01/21/24 07:13 Labs: Laboratory Results - last 24 hr 01/20/24 01/20/24 01/20/24 16:06 18:35 20:23 MCV MCH MCHC RDW Plt Count MPV Immature Gran % (Auto) Neut % (Auto) Lymph % (Auto) [place] % (Auto) Eos % (Auto) Baso % (Auto) Lymph # (Auto) [place] # (Auto) Eos # (Auto) Baso # (Auto) Abs Immat Gran (auto) Absolute Neuts (auto) Absolute Nucleated RBC Nucleated RBC % (auto) Anion Gap Estim Creat Clear Calc Estimated GFR POC Glucose 272 H 248 H Fasting Glucose Calcium Total Bilirubin AST ALT Alkaline Phosphatase Total Protein Albumin Random Vancomycin 12.6 L 01/21/24 01/21/24 01/21/24 07:13 07:38 11:40 MCV 95.2 MCH 30.0 MCHC 31.5 RDW 15.0 Plt Count 282 MPV 11.4 Immature Gran % (Auto) 1.9 H Neut % (Auto) 86.5 H Lymph % (Auto) 5.3 L [place] % (Auto) 6.1 Eos % (Auto) 0.1 Baso % (Auto) 0.1 Lymph # (Auto) 0.7 L [place] # (Auto) 0.8 Eos # (Auto) 0.0 Baso # (Auto) 0.0 Abs Immat Gran (auto) 0.26 H Absolute Neuts (auto) 12.0 H Absolute Nucleated RBC 0.030 H Nucleated RBC % (auto) 0.2 Anion Gap 13 Estim Creat Clear Calc 75.1 Estimated GFR > 60 POC Glucose 225 H 196 H Fasting Glucose 246 H Calcium 8.8 Total Bilirubin 0.5 AST 28 ALT 37 H Alkaline Phosphatase 101 Total Protein 6.5 Albumin 2.9 L Random Vancomycin Microbiology Microbiology Results: Microbiology 01/19/24 06:41 Blood Culture - Preliminary Blood - Venous No growth after 48 hours. 01/19/24 06:42 Blood Culture - Preliminary Blood - Venous No growth after 48 hours. 01/16/24 16:55 Blood Culture - Final Blood - Venous Enterococcus faecalis Assessment and Plan (1) Pneumonia: Status: Acute (2) Bacteremia due to Gram-negative bacteria: Status: Acute Plan 78yo F LTC resident of [facility] with AF + hx DVT on Xarelto, recurrent UTIs, DM2, and schizoaffecive disorder presenting with hypoxia + AMS, found to have severe sepsis due to pneumonia 1.RLL pneumonia/GPC bacteremia (sepsis resolved) - vanco/cefepime(6) - wean O2 as tolerated -given coughing episode will ask speech to Re eval 2.UTI/Enterococcus bacteremia - recently treated with ceftriaxone; on cefepime as above -repeat cultures to document clearance 3.AF/RVR -acceptable control on current therapies -continue Xarelto -adjust therapies as clinically indicated 4. ANABELL - resolved secondary to volume -follow renals/divalents 5.DM II -acceptable control on current therapies -lispro correctional scale -adjust as indicated Rivaroxaban Full Code In my clinical judgment, the patient requires continued inpatient hospitalization for the following reasons: IV ABX Quality Stroke Does the patient have a stroke diagnosis?: No VTE Prior VTE?: Yes VTE Risk Level:: Medical - moderate - high VTE Device Contraindication: Treatment Not Indicated VTE Drug Contraindication: N/A - Med Ordered
[2024-01-21] MEDS: Rivaroxaban 20 MG TABLET PO (16:22)
[2024-01-21 16:23] LABS: Glucose, Whole Blood 176 mg/dL (60-115)
[2024-01-21 19:41] LABS: Vancomycin Random 14.1 mcg/mL (15-20)
--- NOTE | 2024-01-21 19:49 | HE.PHANOTE ---
RE: VANCO DOSING Random came back as 14.1. Due to indication of sepsis and renal function improvement, dose is increased to 1500 mg q24h. Next random is scheduled for 01/22/24 @1800.
[2024-01-21 21:05] LABS: Glucose, Whole Blood 212 mg/dL (60-115)
[2024-01-21] MEDS: Atorvastatin Calcium 10 MG TABLET PO (21:32)
[2024-01-21] MEDS: vancomycin HCL 1,500 MG in 0.9 % Sodium Chloride 500 ML 333.33 MG IV (22:44)
[2024-01-22 03:55] VITALS: BP 149/89; PULSE 87; RESP 24; TEMP 36.2; O2SAT 96
[2024-01-22 05:31] LABS: Glucose, Whole Blood 190 mg/dL (60-115)
[2024-01-22] MEDS: cefEPime HCl 2 GM in 0.9 % Sodium Chloride 50 ML IV ×3 (06:18→20:32)
[2024-01-22 07:00] LABS: MANUAL DIFF FLAG NO
[2024-01-22 07:05] LABS: Basophils Percent Auto 0.2 % (0-2); Eosinophils Percent Auto 0.2 % (0-4); Hematocrit 30.3 % (37.0-47.0); Hemoglobin 9.2 g/dl (12.0-16.0); Imm Gran Abs Auto 0.26 X10*3/uL (0.00-0.03); Imm Gran Pct Auto 2.3 % (0.0-0.4); Lymphocytes Absolute Auto 0.8 X10*3/uL (1.2-4.9); Lymphocytes Percent Auto 7.5 % (20-40); Mean Corpuscular HGB Conc 30.4 g/dl (31.0-35.0); Mean Corpuscular Volume 95.6 fL (80.0-98.0); Mean Platelet Volume 10.9 fL (9.4-12.3); Monocytes Percent Auto 8.5 % (2-11); NRBC Pct Auto 0.3 /100WBC (0.0-0.2); Neutrophils Absolute Auto 9.1 x10*3/uL (2.0-8.3); Neutrophils Percent Auto 81.3 % (45-73); Platelet Count 298 X10*3/uL (160-400); Red Blood Count 3.17 X10*6/uL (4.20-5.50); Red Cell Distribution Width 14.9 % (11.0-16.0); White Blood Count 11.2 X10*3/uL (4.8-10.8)
[2024-01-22 07:18] VITALS: BP 134/83; PULSE 82; RESP 17; TEMP 36.4; O2SAT 96
[2024-01-22 07:27] LABS: Alanine Aminotransferase 30 U/L (0-31); Albumin Level 2.8 g/dL (3.5-5.0); Alkaline Phosphatase 92 U/L (39-117); Anion Gap 10 (12-20); Aspartate Amino Transferase 25 U/L (5-31); Bilirubin Total 0.6 mg/dL (0.0-1.0); Blood Urea Nitrogen 18 mg/dL (9-16); Calcium 8.1 mg/dL (8.4-10.2); Carbon Dioxide 35 mmol/L (22-29); Chloride 103 mmol/L (96-108); Creatinine Clr Calc Pharmacy 87.2; Estimated Glomerular Filt Rate > 60; Glucose Fasting 208 mg/dL (60-99); Potassium 2.7 mmol/L (3.3-5.1); Sodium 145 mmol/L (135-145); Total Protein 6.3 g/dL (6.5-8.0)
[2024-01-22 07:30] LABS: Glucose, Whole Blood 177 mg/dL (60-115)
[2024-01-22] MEDS: Magnesium Oxide 400 MG TABLET PO (07:34)
[2024-01-22] MEDS: Metoprolol Tartrate 25 MG TABLET PO (07:34)
[2024-01-22] MEDS: Escitalopram Oxalate 10 MG TABLET PO (07:34)
[2024-01-22] MEDS: Potassium Chloride/H20 10 MEQ/100 ML PIGGYBACK 100 MEQ IV ×4 (07:40→11:20)
[2024-01-22] MEDS: 0.9 % Sodium Chloride Flush 3 ML SYRINGE IVFLUSH ×4 (07:40→22:04)
[2024-01-22 08:28] LABS: Legionella Ag Urine Not Detected (Not Detected)
[2024-01-22 11:25] VITALS: BP 134/80; PULSE 98; RESP 17; TEMP 36.1; O2SAT 96
[2024-01-22 11:47] LABS: Glucose, Whole Blood 171 mg/dL (60-115)
--- NOTE | 2024-01-22 13:59 | P.PNIM_ITS ---
Subjective Subjective Date of Service: 01/22/24 Interval History: Remains minimally responsive. No acute issues overnight Review of Systems Unable to obtain Physical Exam 2 Vital Signs: Vital Signs: Last Vital Signs Temp 97.0 F 01/22/24 11:25 Pulse 98 01/22/24 11:25 Resp 17 01/22/24 11:25 BP 134/80 01/22/24 11:25 Pulse Ox 96 01/22/24 11:25 O2 Del Method Nasal Cannula 01/22/24 11:25 O2 Flow Rate 2 01/22/24 11:25 BMI result Body Mass Index 33.0 Const: Other: Awake; eyes track with verbal stimuli Resp: Other: Right basilar crackles otherwise clear Cardio: Other: No S4; positive S1-S2; no S3 murmurs rubs or gallops GI: Other: Soft nontender nondistended normoactive bowel sounds Extrem: Other: No edema bilaterally Objective Data Active Medications Acetaminophen (Acetaminophen Supp 650 Mg Supp.Rect) 650 mg [place] Q6H PRN PRN Reason: mild pain, fever, hsu Last Admin: 01/20/24 17:13 Dose: 650 mg Documented By: RJ Albuterol Sulfate (Albuterol Sulfate (0.083%) 2.5 Mg/3 Ml Vial.Neb) 2.5 mg INHALE Q4H PRN PRN Reason: Shortness of Breath Atorvastatin Calcium (Atorvastatin Calcium 10 Mg Tablet) 10 mg PO BEDTIME [facility] Last Admin: 01/21/24 21:32 Dose: 10 mg Documented By: DEMARIO Bisacodyl (Bisacodyl 10 Mg Supp.Rect) 10 mg [place] DAILY PRN PRN Reason: Constipation Calcium Carbonate (Calcium Carbonate 750 Mg Tab.Chew) 750 mg PO Q4H PRN PRN Reason: Heartburn Escitalopram Oxalate (Escitalopram Oxalate 10 Mg Tablet) 10 mg PO DAILY [facility] Last Admin: 01/22/24 07:34 Dose: 10 mg Documented By: SHANTELL Glucose (Glucose Gel 15 Gm Gel..Gram.) 15 gm PO Q15M PRN; Protocol PRN Reason: per Hypoglycemia Standing Ord. Dextrose (D10) 250 mls @ 750 mls/hr IV Q15M PRN; Protocol PRN Reason: per Hypoglycemia Standing Ord. Cefepime HCl 2 gm/ Sodium (Chloride) 50 mls @ 100 mls/hr IV Q8H [facility] Last Infusion: 01/22/24 13:20 Dose: Infused Documented By: SHANTELL Vancomycin HCl 1,500 mg/ (Sodium Chloride) 500 mls @ 333.333 mls/hr IV Q24H [facility] Last Infusion: 01/22/24 00:15 Dose: Infused Documented By: DEMARIO Insulin Human Lispro (Insulin Lispro 100 Unit/Ml 3 Ml Vial) 0 unit SUBCUT QIDACHS [facility]; Protocol Last Admin: 01/22/24 11:52 Dose: Not Given Documented By: SHANTELL Non-Admin Reason: NPO Magnesium Hydroxide (Milk Of Magnesia 30 Ml Oral.Susp) 30 ml PO DAILY PRN PRN Reason: Constipation Magnesium Oxide (Magnesium Oxide 400 Mg Tablet) 400 mg PO BID [facility] Last Admin: 01/22/24 07:34 Dose: 400 mg Documented By: SHANTELL Melatonin (Melatonin 3 Mg Tablet) 6 mg PO BEDTIME PRN PRN Reason: Insomnia Metoprolol Tartrate (Metoprolol Tartrate 25 Mg Tablet) 25 mg PO BID [facility]; Protocol Last Admin: 01/22/24 07:34 Dose: 25 mg Documented By: SHANTELL Pharmacy Consult (Consult Rx Vancomycin Dosing) 1 each MISCELLANE DAILY PRN PRN Reason: Consult order Rivaroxaban (Rivaroxaban 20 Mg Tablet) 20 mg PO DAILY@1700 [facility] Last Admin: 01/21/24 16:22 Dose: 20 mg Documented By: SHANTELL Senna (Sennosides 8.6 Mg Tablet) 17.2 mg PO DAILY PRN PRN Reason: No BM in 2 Days Sodium Biphosphate/Sodium Phosphate (Sodium Phosphate,[place]-Dibasic 133 Ml Enema) 117 ml [place] DAILY PRN PRN Reason: Bowel Management Sodium Chloride (0.9 % Sodium Chloride Flush 3 Ml Syringe) 3 ml IVFLUSH QSHIFT [facility] Last Admin: 01/22/24 07:40 Dose: 3 ml Documented By: SHANTELL Labs 01/22/24 06:46 01/22/24 06:46 Labs: Laboratory Results - last 24 hr 01/16/24 01/21/24 01/21/24 21:08 16:11 18:53 MCV MCH MCHC RDW Plt Count MPV Immature Gran % (Auto) Neut % (Auto) Lymph % (Auto) [place] % (Auto) Eos % (Auto) Baso % (Auto) Lymph # (Auto) [place] # (Auto) Eos # (Auto) Baso # (Auto) Abs Immat Gran (auto) Absolute Neuts (auto) Absolute Nucleated RBC Nucleated RBC % (auto) Anion Gap Estim Creat Clear Calc Estimated GFR POC Glucose 176 H Fasting Glucose Calcium Total Bilirubin AST ALT Alkaline Phosphatase Total Protein Albumin Random Vancomycin 14.1 L Ur L.pneumophila Ag Not Detected 01/21/24 01/22/24 01/22/24 20:44 05:26 06:46 MCV 95.6 MCH 29.0 MCHC 30.4 L RDW 14.9 Plt Count 298 MPV 10.9 Immature Gran % (Auto) 2.3 H Neut % (Auto) 81.3 H Lymph % (Auto) 7.5 L [place] % (Auto) 8.5 Eos % (Auto) 0.2 Baso % (Auto) 0.2 Lymph # (Auto) 0.8 L [place] # (Auto) 1.0 Eos # (Auto) 0.0 Baso # (Auto) 0.0 Abs Immat Gran (auto) 0.26 H Absolute Neuts (auto) 9.1 H Absolute Nucleated RBC 0.030 H Nucleated RBC % (auto) 0.3 H Anion Gap 10 L Estim Creat Clear Calc 87.2 Estimated GFR > 60 POC Glucose 212 H 190 H Fasting Glucose 208 H Calcium 8.1 L D Total Bilirubin 0.6 AST 25 ALT 30 Alkaline Phosphatase 92 Total Protein 6.3 L Albumin 2.8 L Random Vancomycin Ur L.pneumophila Ag 01/22/24 01/22/24 07:21 11:42 MCV MCH MCHC RDW Plt Count MPV Immature Gran % (Auto) Neut % (Auto) Lymph % (Auto) [place] % (Auto) Eos % (Auto) Baso % (Auto) Lymph # (Auto) [place] # (Auto) Eos # (Auto) Baso # (Auto) Abs Immat Gran (auto) Absolute Neuts (auto) Absolute Nucleated RBC Nucleated RBC % (auto) Anion Gap Estim Creat Clear Calc Estimated GFR POC Glucose 177 H 171 H Fasting Glucose Calcium Total Bilirubin AST ALT Alkaline Phosphatase Total Protein Albumin Random Vancomycin Ur L.pneumophila Ag Assessment and Plan (1) Gram-positive bacteremia: Status: Acute (2) Pneumonia: Status: Acute Plan 78yo F LTC resident of [facility] with AF + hx DVT on Xarelto, recurrent UTIs, DM2, and schizoaffecive disorder presenting with hypoxia + AMS, found to have severe sepsis due to pneumonia 1.RLL pneumonia/GPC bacteremia (sepsis resolved) - vanco/cefepime(7) - wean O2 as tolerated -given coughing episode will ask speech to Re eval 2.UTI/Enterococcus bacteremia - we will discuss antibiotic coverage with ID -repeat cultures to document clearance 3.AF/RVR -acceptable control on current therapies -continue Xarelto -adjust therapies as clinically indicated 4. ANABELL - resolved secondary to volume -follow renals/divalents 5.DM II -acceptable control on current therapies -lispro correctional scale -adjust as indicated Rivaroxaban Full Code In my clinical judgment, the patient requires continued inpatient hospitalization for the following reasons: IV ABX Quality Stroke Does the patient have a stroke diagnosis?: No VTE Prior VTE?: Yes VTE Risk Level:: Medical - moderate - high VTE Device Contraindication: Treatment Not Indicated VTE Drug Contraindication: N/A - Med Ordered
[2024-01-22 15:20] VITALS: BP 131/88; PULSE 89; RESP 17; TEMP 36.3; O2SAT 96
[2024-01-22] MEDS: Rivaroxaban 20 MG TABLET PO (15:43)
[2024-01-22 16:26] LABS: Glucose, Whole Blood 179 mg/dL (60-115)
[2024-01-22 18:55] LABS: Vancomycin Random 16.5 mcg/mL (15-20)
--- NOTE | 2024-01-22 19:03 | HE.PHANOTE ---
RE: VANCO DOSING Random came back as 16.5. continue with dose of 1500 mg q24h, next random is scheduled for 01/23/24 @1800.
[2024-01-22 19:27] VITALS: BP 132/94; PULSE 101; RESP 20; TEMP 36.3; O2SAT 95
[2024-01-22 20:19] LABS: Glucose, Whole Blood 172 mg/dL (60-115)
[2024-01-22] MEDS: vancomycin HCL 1,500 MG in 0.9 % Sodium Chloride 500 ML 333 MG IV (20:40)
[2024-01-22] MEDS: Insulin Lispro 100 UNIT/ML 3 ML VIAL SUBCUT (22:02)
[2024-01-22 23:52] VITALS: BP 151/83; PULSE 93; RESP 18; TEMP 36.6; O2SAT 97
[2024-01-23 03:33] VITALS: BP 153/84; PULSE 77; RESP 18; TEMP 36.3; O2SAT 96
[2024-01-23 06:48] LABS: MANUAL DIFF FLAG NO
[2024-01-23 06:57] LABS: Basophils Percent Auto 0.2 % (0-2); Eosinophils Percent Auto 0.3 % (0-4); Hematocrit 32.1 % (37.0-47.0); Hemoglobin 9.8 g/dl (12.0-16.0); Imm Gran Abs Auto 0.22 X10*3/uL (0.00-0.03); Lymphocytes Absolute Auto 0.8 X10*3/uL (1.2-4.9); Lymphocytes Percent Auto 7.3 % (20-40); Mean Corpuscular HGB Conc 30.5 g/dl (31.0-35.0); Mean Corpuscular Hemoglobin 29.2 pg (27.0-33.0); Mean Corpuscular Volume 95.5 fL (80.0-98.0); Mean Platelet Volume 11.4 fL (9.4-12.3); Monocytes Absolute Auto 0.9 X10*3/uL (0.1-1.2); NRBC Pct Auto 0.3 /100WBC (0.0-0.2); Neutrophils Absolute Auto 9.1 x10*3/uL (2.0-8.3); Neutrophils Percent Auto 82.2 % (45-73); Platelet Count 281 X10*3/uL (160-400); Red Blood Count 3.36 X10*6/uL (4.20-5.50); Red Cell Distribution Width 14.9 % (11.0-16.0); White Blood Count 11.1 X10*3/uL (4.8-10.8)
[2024-01-23] MEDS: cefEPime HCl 2 GM in 0.9 % Sodium Chloride 50 ML IV (07:07)
--- NOTE | 2024-01-23 07:12 | PC.NURSE ---
Patient overnight clenched her mouth shut she was unable to safely take medications RN let MD Dang know . PO medications were not administered overnight.
[2024-01-23 08:00] VITALS: BP 134/79; PULSE 111; RESP 20; TEMP 36.6; O2SAT 95
[2024-01-23 08:36] LABS: Glucose, Whole Blood 160 mg/dL (60-115)
[2024-01-23] MEDS: Insulin Lispro 100 UNIT/ML 3 ML VIAL SUBCUT ×2 (09:02→21:53)
[2024-01-23] MEDS: Ampicillin Sodium/Sulbactam Na 3 GM in 0.9 % Sodium Chloride 100 ML IV ×2 (09:03→13:36)
[2024-01-23] MEDS: 0.9 % Sodium Chloride Flush 3 ML SYRINGE IVFLUSH ×3 (09:06→21:54)
[2024-01-23 10:03] LABS: Alanine Aminotransferase 24 U/L (0-31); Albumin Level 2.6 g/dL (3.5-5.0); Alkaline Phosphatase 84 U/L (39-117); Anion Gap 17 (12-20); Aspartate Amino Transferase 19 U/L (5-31); Bilirubin Total 0.5 mg/dL (0.0-1.0); Blood Urea Nitrogen 22 mg/dL (9-16); Calcium 7.7 mg/dL (8.4-10.2); Carbon Dioxide 27 mmol/L (22-29); Chloride 106 mmol/L (96-108); Creatinine Clr Calc Pharmacy 88.6; Estimated Glomerular Filt Rate > 60; Glucose Fasting 170 mg/dL (60-99); Potassium 3.5 mmol/L (3.3-5.1); Sodium 146 mmol/L (135-145); Total Protein 6.2 g/dL (6.5-8.0)
--- NOTE | 2024-01-23 11:12 | P.PNIM_ITS ---
Subjective Subjective Date of Service: 01/23/24 Interval History: No acute issues overnight. Remains minimally responsive Review of Systems Unable to obtain Physical Exam 2 Vital Signs: Vital Signs: Last Vital Signs Temp 97.8 F 01/23/24 08:00 Pulse 111 H 01/23/24 08:00 Resp 20 01/23/24 08:00 BP 134/79 01/23/24 08:00 Pulse Ox 95 01/23/24 08:00 O2 Del Method Nasal Cannula 01/23/24 08:00 O2 Flow Rate 2 01/23/24 08:00 BMI result Body Mass Index 33.0 Const: Other: Awake; eyes track with verbal stimuli Resp: Other: Right basilar crackles otherwise clear Cardio: Other: No S4; positive S1-S2; no S3 murmurs rubs or gallops GI: Other: Soft nontender nondistended normoactive bowel sounds Extrem: Other: No edema bilaterally Objective Data Active Medications Acetaminophen (Acetaminophen Supp 650 Mg Supp.Rect) 650 mg [place] Q6H PRN PRN Reason: mild pain, fever, hsu Last Admin: 01/20/24 17:13 Dose: 650 mg Documented By: RJ Albuterol Sulfate (Albuterol Sulfate (0.083%) 2.5 Mg/3 Ml Vial.Neb) 2.5 mg INHALE Q4H PRN PRN Reason: Shortness of Breath Atorvastatin Calcium (Atorvastatin Calcium 10 Mg Tablet) 10 mg PO BEDTIME [facility] Last Admin: 01/22/24 22:02 Dose: Not Given Documented By: ODALIS Non-Admin Reason: Patient Asleep Bisacodyl (Bisacodyl 10 Mg Supp.Rect) 10 mg [place] DAILY PRN PRN Reason: Constipation Calcium Carbonate (Calcium Carbonate 750 Mg Tab.Chew) 750 mg PO Q4H PRN PRN Reason: Heartburn Escitalopram Oxalate (Escitalopram Oxalate 10 Mg Tablet) 10 mg PO DAILY [facility] Last Admin: 01/23/24 09:47 Dose: Not Given Documented By: MARY Non-Admin Reason: unable to follow commands/ will not open mout Glucose (Glucose Gel 15 Gm Gel..Gram.) 15 gm PO Q15M PRN; Protocol PRN Reason: per Hypoglycemia Standing Ord. Dextrose (D10) 250 mls @ 750 mls/hr IV Q15M PRN; Protocol PRN Reason: per Hypoglycemia Standing Ord. Ampicillin Sodium/Sulbactam (Sodium 3 gm/ Sodium Chloride) 100 mls @ 200 mls/hr IV Q6H [facility] Last Infusion: 01/23/24 09:48 Dose: Infused Documented By: MARY Insulin Human Lispro (Insulin Lispro 100 Unit/Ml 3 Ml Vial) 0 unit SUBCUT QIDACHS [facility]; Protocol Last Admin: 01/23/24 09:02 Dose: 2 unit Documented By: MARY Magnesium Hydroxide (Milk Of Magnesia 30 Ml Oral.Susp) 30 ml PO DAILY PRN PRN Reason: Constipation Magnesium Oxide (Magnesium Oxide 400 Mg Tablet) 400 mg PO BID [facility] Last Admin: 01/23/24 09:46 Dose: Not Given Documented By: MARY Non-Admin Reason: unable yto follow commands Melatonin (Melatonin 3 Mg Tablet) 6 mg PO BEDTIME PRN PRN Reason: Insomnia Metoprolol Tartrate (Metoprolol Tartrate 25 Mg Tablet) 25 mg PO BID [facility]; Protocol Last Admin: 01/23/24 09:46 Dose: Not Given Documented By: MARY Non-Admin Reason: unable to follow commands Rivaroxaban (Rivaroxaban 20 Mg Tablet) 20 mg PO DAILY@1700 [facility] Last Admin: 01/22/24 15:43 Dose: 20 mg Documented By: SHANTELL Senna (Sennosides 8.6 Mg Tablet) 17.2 mg PO DAILY PRN PRN Reason: No BM in 2 Days Sodium Biphosphate/Sodium Phosphate (Sodium Phosphate,[place]-Dibasic 133 Ml Enema) 117 ml [place] DAILY PRN PRN Reason: Bowel Management Sodium Chloride (0.9 % Sodium Chloride Flush 3 Ml Syringe) 3 ml IVFLUSH QSHIFT [facility] Last Admin: 01/23/24 09:06 Dose: 3 ml Documented By: MARY Labs 01/23/24 06:32 01/23/24 09:04 Labs: Laboratory Results - last 24 hr 01/22/24 01/22/24 01/22/24 11:42 16:17 18:08 MCV MCH MCHC RDW Plt Count MPV Immature Gran % (Auto) Neut % (Auto) Lymph % (Auto) [place] % (Auto) Eos % (Auto) Baso % (Auto) Lymph # (Auto) [place] # (Auto) Eos # (Auto) Baso # (Auto) Abs Immat Gran (auto) Absolute Neuts (auto) Absolute Nucleated RBC Nucleated RBC % (auto) Anion Gap Estim Creat Clear Calc Estimated GFR POC Glucose 171 H 179 H Fasting Glucose Calcium Total Bilirubin AST ALT Alkaline Phosphatase Total Protein Albumin Random Vancomycin 16.5 01/22/24 01/23/24 01/23/24 19:56 06:32 08:32 MCV 95.5 MCH 29.2 MCHC 30.5 L RDW 14.9 Plt Count 281 MPV 11.4 Immature Gran % (Auto) 2.0 H Neut % (Auto) 82.2 H Lymph % (Auto) 7.3 L [place] % (Auto) 8.0 Eos % (Auto) 0.3 Baso % (Auto) 0.2 Lymph # (Auto) 0.8 L [place] # (Auto) 0.9 Eos # (Auto) 0.0 Baso # (Auto) 0.0 Abs Immat Gran (auto) 0.22 H Absolute Neuts (auto) 9.1 H Absolute Nucleated RBC 0.030 H Nucleated RBC % (auto) 0.3 H Anion Gap Estim Creat Clear Calc Estimated GFR POC Glucose 172 H 160 H Fasting Glucose Calcium Total Bilirubin AST ALT Alkaline Phosphatase Total Protein Albumin Random Vancomycin 01/23/24 09:04 MCV MCH MCHC RDW Plt Count MPV Immature Gran % (Auto) Neut % (Auto) Lymph % (Auto) [place] % (Auto) Eos % (Auto) Baso % (Auto) Lymph # (Auto) [place] # (Auto) Eos # (Auto) Baso # (Auto) Abs Immat Gran (auto) Absolute Neuts (auto) Absolute Nucleated RBC Nucleated RBC % (auto) Anion Gap 17 Estim Creat Clear Calc 88.6 Estimated GFR > 60 POC Glucose Fasting Glucose 170 H Calcium 7.7 L Total Bilirubin 0.5 AST 19 ALT 24 Alkaline Phosphatase 84 Total Protein 6.2 L Albumin 2.6 L Random Vancomycin Assessment and Plan (1) Bacteremia due to Gram-negative bacteria: Status: Acute Plan 78yo F LTC resident of [facility] with AF + hx DVT on Xarelto, recurrent UTIs, DM2, and schizoaffecive disorder presenting with hypoxia + AMS, found to have severe sepsis due to pneumonia 1.RLL pneumonia/GPC bacteremia (sepsis resolved) - Enterococcus resistant to vancomycin -start Unasyn 2 g Q 8 hours and follow clinically - wean O2 as tolerated -speech unable to read eval. Reach out to proxy 2.UTI/Enterococcus bacteremia - switch to Unasyn as above 3.AF/RVR -acceptable control on current therapies -continue Xarelto -adjust therapies as clinically indicated 4. ANABELL - resolved secondary to volume -follow renals/divalents 5.DM II -acceptable control on current therapies -lispro correctional scale -adjust as indicated Rivaroxaban Full Code In my clinical judgment, the patient requires continued inpatient hospitalization for the following reasons: IV ABX Quality Stroke Does the patient have a stroke diagnosis?: No VTE Prior VTE?: Yes VTE Risk Level:: Medical - moderate - high VTE Device Contraindication: Treatment Not Indicated VTE Drug Contraindication: N/A - Med Ordered
--- NOTE | 2024-01-23 11:16 | P.EN_ITS ---
Event Note Date of Service: 01/23/24 Event Note: Call placed to Yonis Mayfield [facility] proxy at [phone]. Message left. Time Spent With Patient Time: Total time managing care of this patient today ____ minutes.
--- NOTE | 2024-01-23 11:16 | PM.EVENT ---
Event Note Date of Service: 01/23/24 Event Note: Call placed to Yonis Mayfield [facility] proxy at [phone]. Message left. Time Spent With Patient Time: Total time managing care of this patient today ____ minutes.
[2024-01-23 11:30] LABS: Glucose, Whole Blood 145 mg/dL (60-115)
--- NOTE | 2024-01-23 11:44 | MHC.SLORD ---
Addendum entered and electronically signed by Jessica King MA, CCC-BUS AIDE 01/23/24 13:55: BUS AIDE attempted again, patient still clenching jaw and unable to evaluate. Notified MD. Original Note: Speech Language Pathology Order Status: Per EMR, patient coughing with breakfast and liquids over the weekend. RN reports she was unable to administer PO meds d/t patient clenching mouth shut. Dr. Medina requested BUS AIDE re-evaluate. BUS AIDE attempted to see patient this morning. Patient clenching mouth tightly and not accepting oral care or PO. Notified MD.
[2024-01-23 12:00] VITALS: BP 153/95; PULSE 100; RESP 20; TEMP 36.5; O2SAT 97
--- NOTE | 2024-01-23 14:24 | MHC.CM.PN ---
EMR reviewed and per MD rounds, pt is not medically cleared for discharge due to ongoing management of pneumonia, bacteremia, requiring IV antibiotics.
--- NOTE | 2024-01-23 15:47 | P.CNID_ITS ---
History of Present Illness Data of Consult Service Date: 01/23/24 Requesting physician: Sebastien Medina Primary Care Provider: Jorje Perrin MD HPI Reason for consult: weakness,01/15 enterococcus faecalis bacteremia She presents with weakness and fatigue. She has enterococcus bacteremia on 01/15. She has clear suprapubic catheter. Review of Systems 2 Review of Systems: Yes all other systems are reviewed and are negative PMFSH Past Medical History Medical History Bacteremia due to Gram-negative bacteria Persistent atrial fibrillation Cholelithiasis DVT, bilateral lower limbs Type 2 diabetes mellitus with hyperglycemia Hypercholesterolemia Recurrent UTI Lumbar degenerative disc disease Afib Family History Family History Father Diabetes Heart disease Mother Heart disease Son Opiate addiction Surgical History Surgical History History of lumpectomy of right breast History of tubal ligation Social History Social History Household Members: Children Household Members Other:: home with daughter Housing: Half-Way Do you presently have visiting nurse or other home services: No Unable to assess alcohol history related to: Unable to respond Alcohol intake: unknown Comment: bed close to RN station Patient Tobacco Use Status: Never used Tobacco e-Cigarette/Vaping Use: Never Used Second Hand Smoke Exposure: No Advance Directives Date on File: 01/09/21 service: No Current occupational status: retired Cognitive needs: Yes (Electric Wheel Chair) Hearing needs: Yes (Earring Aids) Vision needs: Yes (Glasses) Meds Allergies Allergy/AdvReac Type Severity Reaction Status Date / Time Iodinated Contrast Media Allergy Severe THROAT Verified 01/16/24 16:26 [IV Dye, Iodine Containing CLOSES Contrast ] UP/SWELLIN iodine [IODINE] Allergy Severe ANAPHYLAXIS Verified 01/16/24 16:26 sulfamethoxazole Allergy Intermediate rash face Verified 01/16/24 16:26 [From Bactrim] trimethoprim [From Bactrim] Allergy Intermediate rash face Verified 01/16/24 16:26 quetiapine [From SEROQUEL] Allergy Unknown SWELLING Verified 01/16/24 16:26 apixaban [From Eliquis] AdvReac Intermediate Diarrhea Verified 01/16/24 16:26 amoxicillin [Augmentin] AdvReac Unknown Diarrhea Verified 01/16/24 16:26 clavulanic acid [Augmentin] AdvReac Unknown Diarrhea Verified 01/16/24 16:26 lisinopril [LISINOPRIL] AdvReac Unknown Cough Verified 01/16/24 16:26 prednisone [PREDNISONE] AdvReac Unknown INCREASE Verified 01/16/24 16:26 BLOOD PRESSURE Active Medications: Current Medications Acetaminophen (Acetaminophen Supp 650 Mg Supp.Rect) 650 mg OR Q6H PRN PRN Reason: mild pain, fever, hsu Last Admin: 01/20/24 17:13 Dose: 650 mg Albuterol Sulfate (Albuterol Sulfate (0.083%) 2.5 Mg/3 Ml Vial.Neb) 2.5 mg INHALE Q4H PRN PRN Reason: Shortness of Breath Atorvastatin Calcium (Atorvastatin Calcium 10 Mg Tablet) 10 mg PO BEDTIME [facility] Last Admin: 01/22/24 22:02 Dose: Not Given Bisacodyl (Bisacodyl 10 Mg Supp.Rect) 10 mg OR DAILY PRN PRN Reason: Constipation Calcium Carbonate (Calcium Carbonate 750 Mg Tab.Chew) 750 mg PO Q4H PRN PRN Reason: Heartburn Escitalopram Oxalate (Escitalopram Oxalate 10 Mg Tablet) 10 mg PO DAILY [facility] Last Admin: 01/23/24 09:47 Dose: Not Given Glucose (Glucose Gel 15 Gm Gel..Gram.) 15 gm PO Q15M PRN; Protocol PRN Reason: per Hypoglycemia Standing Ord. Dextrose (D10) 250 mls @ 750 mls/hr IV Q15M PRN; Protocol PRN Reason: per Hypoglycemia Standing Ord. Ampicillin Sodium/Sulbactam (Sodium 3 gm/ Sodium Chloride) 100 mls @ 200 mls/hr IV Q6H [facility] Last Infusion: 01/23/24 15:40 Dose: Infused Insulin Human Lispro (Insulin Lispro 100 Unit/Ml 3 Ml Vial) 0 unit SUBCUT QIDACHS [facility]; Protocol Last Admin: 01/23/24 12:17 Dose: Not Given Magnesium Hydroxide (Milk Of Magnesia 30 Ml Oral.Susp) 30 ml PO DAILY PRN PRN Reason: Constipation Magnesium Oxide (Magnesium Oxide 400 Mg Tablet) 400 mg PO BID [facility] Last Admin: 01/23/24 09:46 Dose: Not Given Melatonin (Melatonin 3 Mg Tablet) 6 mg PO BEDTIME PRN PRN Reason: Insomnia Metoprolol Tartrate (Metoprolol Tartrate 25 Mg Tablet) 25 mg PO BID [facility]; Protocol Last Admin: 01/23/24 09:46 Dose: Not Given Rivaroxaban (Rivaroxaban 20 Mg Tablet) 20 mg PO DAILY@1700 [facility] Last Admin: 01/22/24 15:43 Dose: 20 mg Senna (Sennosides 8.6 Mg Tablet) 17.2 mg PO DAILY PRN PRN Reason: No BM in 2 Days Sodium Biphosphate/Sodium Phosphate (Sodium Phosphate,[place]-Dibasic 133 Ml Enema) 117 ml [place] DAILY PRN PRN Reason: Bowel Management Sodium Chloride (0.9 % Sodium Chloride Flush 3 Ml Syringe) 3 ml IVFLUSH QSHIFT [facility] Last Admin: 01/23/24 09:06 Dose: 3 ml Home Medications ?Medication ?Instructions ?Recorded ?Confirmed ?Last Taken ?Type albuterol sulfate 90 mcg/actuation 2 puff inhalation Q6H PRN 06/18/20 01/16/24 10/17/21 History aerosol inhaler Shortness Of Breath Or Wheezing acetaminophen 325 mg tablet 650 mg PO Q4H PRN Fever Or Pain 10/17/21 01/16/24 12/24/21 History trazodone 50 mg tablet 50 mg PO BEDTIME 10/17/21 01/16/24 12/24/21 History furosemide 20 mg tablet 1 tab PO DAILY 12/25/21 01/16/24 12/24/21 History mirtazapine 7.5 mg tablet 7.5 mg PO BEDTIME 12/25/21 01/16/24 12/24/21 History potassium chloride 20 mEq 1 tab PO BID 12/25/21 01/16/24 12/25/21 History tablet,extended release(part/cryst) rivaroxaban 20 mg tablet (Xarelto) 1 tab PO DAILY@1700 12/25/21 01/16/24 12/24/21 History metoprolol tartrate 50 mg tablet 50 mg PO BID 08/12/22 01/16/24 Unknown History albuterol sulfate 2.5 mg/3 mL 2.5 mg inhalation Q4H PRN SOB 01/16/24 01/16/24 Unknown History (0.083 %) solution for nebulization bisacodyl 10 mg rectal suppository 10 mg OR DAILY PRN Constipation 01/16/24 01/16/24 Unknown History clonazepam 0.5 mg tablet 0.5 mg PO BID 01/16/24 01/16/24 Unknown History insulin aspart U-100 100 unit/mL 1 sliding scale dose subcut TIDAC 01/16/24 01/16/24 Unknown History subcutaneous solution (Novolog U-100 Insulin aspart) insulin glargine 100 unit/mL (3 12 unit subcut BEDTIME 01/16/24 01/16/24 Unknown History mL) subcutaneous pen (Basaglar KwikPen U-100 Insulin) magnesium oxide 400 mg PO BID 01/16/24 01/16/24 Unknown History menthol 4 % topical gel (Biofreeze 1 appl topical BID 01/16/24 01/16/24 Unknown History (menthol)) multivitamin,tx-minerals 1 tab PO DAILY 01/16/24 01/16/24 Unknown History ondansetron HCl 4 mg tablet 4 mg PO Q6H PRN Nausea 01/16/24 01/16/24 Unknown History pregabalin 150 mg capsule 150 mg PO TID 01/16/24 01/16/24 Unknown History sennosides 8.6 mg tablet (senna) 17.2 mg PO DAILY PRN No BM in 2 01/16/24 01/16/24 Unknown History Days sodium phosphates 19 gram-7 117 ml OR DAILY PRN Bowel 01/16/24 01/16/24 Unknown History gram/118 mL enema (Enema) Management Physical Exam 2 Vital Signs: Vital Signs: Last Vital Signs Temp 97.7 F 01/23/24 12:00 Pulse 100 01/23/24 12:00 Resp 20 01/23/24 12:00 BP 153/95 H 01/23/24 12:00 Pulse Ox 97 01/23/24 12:00 O2 Del Method Nasal Cannula 01/23/24 12:00 O2 Flow Rate 2 01/23/24 12:00 BMI result Body Mass Index 33.0 Const: General: cooperative HEENT: Head: Yes normal to inspection Face and sinus: Yes normal facial exam Mouth: Normal oral and palatal mucosa present Teeth and gingiva: d entition normal Eyes: General: appearance normal, both eyes and all related structures P upils: Equal, round and reactive pupils present Resp: Effort & Inspection: normal respiratory effort Cardio: Rate: regular rate Rhythm: regular rhythm GI: Palpation (GI): Soft to palpation and nontender : General: Yes no CVA tenderness Back/Spine/Pelvis: Back: no CVA tenderness Skin: General skin exam: no rashes or lesions noted Neuro: General: moves all extremities Cranial nerves: Yes Equal, round and reactive pupils present Extrem: General: Yes normal to inspection Psych: Appearance: grossly normal Results Labs 01/23/24 06:32 01/23/24 09:04 Labs: Short CBC 01/23/24 Range/Units 06:32 WBC 11.1 H (4.8-10.8) X10*3/uL Hgb 9.8 L (12.0-16.0) g/dl Hct 32.1 L (37.0-47.0) % Plt Count 281 (160-400) X10*3/uL BMP 01/23/24 09:04 Sodium 146 H Potassium 3.5 D Chloride 106 Carbon Dioxide 27 BUN 22 H Creatinine 0.61 Calcium 7.7 L Liver Function 01/23/24 Range/Units 09:04 Total Bilirubin 0.5 (0.0-1.0) mg/dL AST 19 (5-31) U/L ALT 24 (0-31) U/L Alkaline Phosphatase 84 (39-117) U/L Albumin 2.6 L (3.5-5.0) g/dL Microbiology Microbiology Results: Microbiology 01/19/24 06:41 Blood - Venous Blood Culture - Preliminary No growth after 48 hours. 01/19/24 06:42 Blood - Venous Blood Culture - Preliminary No growth after 48 hours. 01/16/24 16:55 Blood - Venous Blood Culture - Final Enterococcus faecalis 01/16/24 16:55 Blood - Venous Blood Culture - Final Coag negative Staphylococcus 01/16/24 21:53 Urine Catheterized - Singh Catheter Urine Culture - Final Assessment and Plan (1) Gram-positive bacteremia: Status: Acute Plan She has had enterococcal bacteremia before and finegoldia She possibly has colon lesion but was deemed not good colonoscopy risk. She should get abdomen and pelvic CT and then see GI again. She can take linezolid 600 mg po bid for 14 d Echo if not done.
[2024-01-23 15:55] VITALS: BP 143/76; PULSE 104; RESP 18; TEMP 36.4; O2SAT 97
[2024-01-23 15:55] LABS: Glucose, Whole Blood 158 mg/dL (60-115)
[2024-01-23] MEDS: Linezolid/D5W 600 MG/300 ML PIGGYBACK 300 MG IV (16:49)
[2024-01-23 19:26] VITALS: BP 146/62; PULSE 118; RESP 20; TEMP 36.4; O2SAT 99
[2024-01-23 19:52] LABS: Glucose, Whole Blood 190 mg/dL (60-115)
[2024-01-23] MEDS: Magnesium Oxide 400 MG TABLET PO (21:53)
[2024-01-23] MEDS: Metoprolol Tartrate 25 MG TABLET PO (21:53)
[2024-01-23] MEDS: Atorvastatin Calcium 10 MG TABLET PO (21:53)
[2024-01-23 23:13] VITALS: BP 117/62; PULSE 78; RESP 20; TEMP 36.4; O2SAT 100
[2024-01-24 03:14] VITALS: BP 116/57; PULSE 88; RESP 20; TEMP 36.1; O2SAT 100
[2024-01-24] MEDS: Linezolid/D5W 600 MG/300 ML PIGGYBACK 300 MG IV ×2 (04:53→16:49)
[2024-01-24 06:13] LABS: MANUAL DIFF FLAG NO
[2024-01-24 06:16] LABS: Basophils Percent Auto 0.1 % (0-2); Eosinophils Percent Auto 0.1 % (0-4); Hematocrit 29.5 % (37.0-47.0); Hemoglobin 9.1 g/dl (12.0-16.0); Imm Gran Abs Auto 0.18 X10*3/uL (0.00-0.03); Imm Gran Pct Auto 1.6 % (0.0-0.4); Lymphocytes Absolute Auto 0.7 X10*3/uL (1.2-4.9); Lymphocytes Percent Auto 6.2 % (20-40); Mean Corpuscular HGB Conc 30.8 g/dl (31.0-35.0); Mean Corpuscular Hemoglobin 29.6 pg (27.0-33.0); Mean Corpuscular Volume 96.1 fL (80.0-98.0); Mean Platelet Volume 10.9 fL (9.4-12.3); Monocytes Absolute Auto 0.7 X10*3/uL (0.1-1.2); Monocytes Percent Auto 6.2 % (2-11); Neutrophils Absolute Auto 9.6 x10*3/uL (2.0-8.3); Neutrophils Percent Auto 85.8 % (45-73); Platelet Count 312 X10*3/uL (160-400); Red Blood Count 3.07 X10*6/uL (4.20-5.50); White Blood Count 11.2 X10*3/uL (4.8-10.8)
[2024-01-24 07:02] LABS: Alanine Aminotransferase 18 U/L (0-31); Albumin Level 2.5 g/dL (3.5-5.0); Alkaline Phosphatase 75 U/L (39-117); Anion Gap 16 (12-20); Aspartate Amino Transferase 17 U/L (5-31); Bilirubin Total 0.4 mg/dL (0.0-1.0); Blood Urea Nitrogen 16 mg/dL (9-16); Calcium 8.3 mg/dL (8.4-10.2); Carbon Dioxide 31 mmol/L (22-29); Chloride 102 mmol/L (96-108); Creatinine Clr Calc Pharmacy 84.4; Estimated Glomerular Filt Rate > 60; Glucose Fasting 231 mg/dL (60-99); Potassium 2.6 mmol/L (3.3-5.1); Sodium 146 mmol/L (135-145)
[2024-01-24 07:25] VITALS: BP 134/63; PULSE 93; RESP 17; TEMP 36.3; O2SAT 98
[2024-01-24 07:26] LABS: Glucose, Whole Blood 197 mg/dL (60-115)
[2024-01-24 07:31] LABS: Magnesium 1.8 mg/dL (1.6-2.6)
[2024-01-24] MEDS: Potassium Chloride/H20 10 MEQ/100 ML PIGGYBACK 100 MEQ IV ×4 (08:06→12:08)
[2024-01-24] MEDS: 0.9 % Sodium Chloride Flush 3 ML SYRINGE IVFLUSH ×2 (08:20→16:51)
--- NOTE | 2024-01-24 10:13 | HO.WOUND ---
Wound Consult: Initial 78yr old?[place] [facility] - See progress notes and H&P for detailed history.? Wound consult placed for Periarea Moisture.? Patient is nonverbal at baseline but wake during my assessment.? Perineal and buttock Etiology: MASD (Moisture Associated Skin Damage - Incontinence Associated Dermatitis)??Present on Admission Wound Bed: red pink moist tissue remains blanchable - scattered areas of partial thickness tissue loss Drainage / Odor: small amount of serosang Edges: ? irregular and mirrored in some areas Cyndi wound: ?Intact No Induration, Fluctuance or Warmth noted Pain: appears tender to touch Goals of Treatment: ? Triad to act as barrier to friction and moisture Recommendations: 1. Turn and Reposition every 2 hours and as needed for patient comfort.? Use pillows or wedges to support off loading positions. 2. Off Load all bony prominences with use of pillows and heel boots if needed.? Apply Preventative foams where needed. ? 3. Monitor for incontinence and moisture control, use barrier creams when needed for prevention and treatment. 4. Provide adequate and supplemental nutrition.? 5. Continue low air loss mattress. 6. When applicable maintain blood glucose levels per Providers order. 7. Perineal and buttock - Off Load Pressure - Cleanse with PH balance spray or wipes, pat dry. ?Apply thin layer of Triad to wound bed - only pat and dab no scrub and rub when soiling occurs. Reapply thin layer PRN after each episode of incontinence. May apply sacral foam dressing to sacrum for prevention. Re-consult wound care Nurse for wound deterioration or wound changes.
[2024-01-24 11:05] VITALS: BP 141/82; PULSE 87; RESP 17; TEMP 36.2; O2SAT 97
[2024-01-24 11:20] LABS: Glucose, Whole Blood 180 mg/dL (60-115)
--- NOTE | 2024-01-24 11:42 | MHC.CM.PN ---
AFTER MULTIPLE ATTEMPTS TO CONTACT PT'S HCP LESLEE DEVIN SPOKE W/GIRMA MARIANO WHO REPORTS NO ONE CAN REACH LESLEE AND THEY (FAMILY) ARE NOT SURE WHERE LESLEE IS AND THAT HE HAS A BAD DRUG HABIT. CM MET W/PT/NURSE HOSPITALIST, PT WAS EASY TO AROUSE AND ALTHOUGH NONVERBAL CAN UNDERSTAND AND NOD HEAD YES AND SHAKE HEAD NO, PT AGREEABLE TO AND HAS COMPLETED A NEW HCP NAMING HER SON INA SILVA AND DIL SAMANTHA RODRIGUEZMICHELLEJAZMIN (#'S ON FILE), COPY TO BE LEFT AT BEDSIDE FOR FAMILY, COPY UPLOADED TO [facility] AND PLACED IN CHART.
--- NOTE | 2024-01-24 13:53 | P.PNIM_ITS ---
Subjective Subjective Date of Service: 01/24/24 Interval History: More alert today but remains nonverbal Review of Systems Unable to obtain Physical Exam 2 Vital Signs: Vital Signs: Last Vital Signs Temp 97.2 F 01/24/24 11:05 Pulse 87 01/24/24 11:05 Resp 17 01/24/24 11:05 BP 141/82 H 01/24/24 11:05 Pulse Ox 97 01/24/24 11:05 O2 Del Method Nasal Cannula 01/24/24 11:05 O2 Flow Rate 2 01/24/24 11:05 BMI result Body Mass Index 33.0 Const: Other: Awake; eyes track with verbal stimuli Resp: Other: Right basilar crackles otherwise clear Cardio: Other: No S4; positive S1-S2; no S3 murmurs rubs or gallops GI: Other: Soft nontender nondistended normoactive bowel sounds Extrem: Other: No edema bilaterally Objective Data Active Medications Acetaminophen (Acetaminophen Supp 650 Mg Supp.Rect) 650 mg [place] Q6H PRN PRN Reason: mild pain, fever, hsu Last Admin: 01/20/24 17:13 Dose: 650 mg Documented By: RJ Atorvastatin Calcium (Atorvastatin Calcium 10 Mg Tablet) 10 mg PO BEDTIME [facility] Last Admin: 01/23/24 21:53 Dose: 10 mg Documented By: ODALIS Bisacodyl (Bisacodyl 10 Mg Supp.Rect) 10 mg [place] DAILY PRN PRN Reason: Constipation Calcium Carbonate (Calcium Carbonate 750 Mg Tab.Chew) 750 mg PO Q4H PRN PRN Reason: Heartburn Escitalopram Oxalate (Escitalopram Oxalate 10 Mg Tablet) 10 mg PO DAILY [facility] Last Admin: 01/24/24 08:19 Dose: Not Given Documented By: MARY Non-Admin Reason: pt can not follow commands Glucose (Glucose Gel 15 Gm Gel..Gram.) 15 gm PO Q15M PRN; Protocol PRN Reason: per Hypoglycemia Standing Ord. Dextrose (D10) 250 mls @ 750 mls/hr IV Q15M PRN; Protocol PRN Reason: per Hypoglycemia Standing Ord. Linezolid (Zyvox/D5w) 600 mg in 300 mls @ 300 mls/hr IV Q12H [facility] Last Infusion: 01/24/24 06:48 Dose: Infused Documented By: HO.HUTCHIT Insulin Human Lispro (Insulin Lispro 100 Unit/Ml 3 Ml Vial) 0 unit SUBCUT QIDACHS [facility]; Protocol Last Admin: 01/24/24 12:12 Dose: Not Given Documented By: MARY Non-Admin Reason: patient NPO Magnesium Hydroxide (Milk Of Magnesia 30 Ml Oral.Susp) 30 ml PO DAILY PRN PRN Reason: Constipation Magnesium Oxide (Magnesium Oxide 400 Mg Tablet) 400 mg PO BID [facility] Last Admin: 01/24/24 08:19 Dose: Not Given Documented By: MARY Non-Admin Reason: pt can not follow commands Melatonin (Melatonin 3 Mg Tablet) 6 mg PO BEDTIME PRN PRN Reason: Insomnia Metoprolol Tartrate (Metoprolol Tartrate 25 Mg Tablet) 25 mg PO BID [facility]; Protocol Last Admin: 01/24/24 08:18 Dose: Not Given Documented By: MARY Non-Admin Reason: pt will not follow commands Rivaroxaban (Rivaroxaban 20 Mg Tablet) 20 mg PO DAILY@1700 [facility] Last Admin: 01/23/24 17:03 Dose: Not Given Documented By: MARY Non-Admin Reason: pt cant follow commands, cant open mouth Senna (Sennosides 8.6 Mg Tablet) 17.2 mg PO DAILY PRN PRN Reason: No BM in 2 Days Sodium Biphosphate/Sodium Phosphate (Sodium Phosphate,[place]-Dibasic 133 Ml Enema) 117 ml [place] DAILY PRN PRN Reason: Bowel Management Sodium Chloride (0.9 % Sodium Chloride Flush 3 Ml Syringe) 3 ml IVFLUSH QSHIFT [facility] Last Admin: 01/24/24 08:20 Dose: 3 ml Documented By: MARY Labs 01/24/24 05:56 01/24/24 05:56 Labs: Laboratory Results - last 24 hr 01/23/24 01/23/24 01/24/24 15:46 19:35 05:56 MCV 96.1 MCH 29.6 MCHC 30.8 L RDW 15.0 Plt Count 312 MPV 10.9 Immature Gran % (Auto) 1.6 H Neut % (Auto) 85.8 H Lymph % (Auto) 6.[address] [place] [place] % (Auto) 6.2 Eos % (Auto) 0.1 Baso % (Auto) 0.1 Lymph # (Auto) 0.[address] [place] [place] # (Auto) 0.7 Eos # (Auto) 0.0 Baso # (Auto) 0.0 Abs Immat Gran (auto) 0.18 H Absolute Neuts (auto) 9.6 H Absolute Nucleated RBC 0.000 Nucleated RBC % (auto) 0.0 Anion Gap 16 Estim Creat Clear Calc 84.4 Estimated GFR > 60 POC Glucose 158 H 190 H Fasting Glucose 231 H Calcium 8.3 L D Magnesium 1.8 Total Bilirubin 0.4 AST 17 ALT 18 Alkaline Phosphatase 75 Total Protein 6.0 L Albumin 2.5 L 01/24/24 01/24/24 07:11 11:09 MCV MCH MCHC RDW Plt Count MPV Immature Gran % (Auto) Neut % (Auto) Lymph % (Auto) [place] % (Auto) Eos % (Auto) Baso % (Auto) Lymph # (Auto) [place] # (Auto) Eos # (Auto) Baso # (Auto) Abs Immat Gran (auto) Absolute Neuts (auto) Absolute Nucleated RBC Nucleated RBC % (auto) Anion Gap Estim Creat Clear Calc Estimated GFR POC Glucose 197 H 180 H Fasting Glucose Calcium Magnesium Total Bilirubin AST ALT Alkaline Phosphatase Total Protein Albumin Microbiology Microbiology Results: Microbiology 01/19/24 06:41 Blood Culture - Final Blood - Venous No growth after 5 days. 01/19/24 06:42 Blood Culture - Final Blood - Venous No growth after 5 days. Assessment and Plan (1) Gram-positive bacteremia: Status: Acute Plan 78yo F LTC resident of [facility] with AF + hx DVT on Xarelto, recurrent UTIs, DM2, and schizoaffecive disorder presenting with hypoxia + AMS, found to have severe sepsis due to pneumonia 1.RLL pneumonia/GPC bacteremia (sepsis resolved) - Enterococcus resistant to vancomycin -switch to linezolid IV until taking p.o. then switch to p.o. as per ID - wean O2 as tolerated -reconsult speech 2.UTI/Enterococcus bacteremia - switch to Zyvox as above 3.AF/RVR -acceptable control on current therapies -continue Xarelto -adjust therapies as clinically indicated 4. ANABELL - resolved secondary to volume -follow renals/divalents 5.DM II -acceptable control on current therapies -lispro correctional scale -adjust as indicated Rivaroxaban Full Code In my clinical judgment, the patient requires continued inpatient hospitalization for the following reasons: IV ABX Quality Stroke Does the patient have a stroke diagnosis?: No VTE Prior VTE?: Yes VTE Risk Level:: Medical - moderate - high VTE Device Contraindication: Treatment Not Indicated VTE Drug Contraindication: N/A - Med Ordered
[2024-01-24 14:59] VITALS: BP 143/74; PULSE 100; RESP 17; TEMP 36.2; O2SAT 98
--- NOTE | 2024-01-24 15:48 | PC.NURSE ---
patient had an 8 beat run of MD Lara aware, no further interventions at this time
[2024-01-24 16:22] LABS: Glucose, Whole Blood 151 mg/dL (60-115)
[2024-01-24 18:56] VITALS: BP 156/74; PULSE 100; RESP 22; TEMP 36.7; O2SAT 99
[2024-01-24] MEDS: Magnesium Oxide 400 MG TABLET PO (20:48)
[2024-01-24] MEDS: Atorvastatin Calcium 10 MG TABLET PO (20:48)
[2024-01-24] MEDS: Metoprolol Tartrate 25 MG TABLET PO (20:48)
[2024-01-24 21:03] LABS: Glucose, Whole Blood 192 mg/dL (60-115)
[2024-01-24] MEDS: Insulin Lispro 100 UNIT/ML 3 ML VIAL SUBCUT (21:05)
[2024-01-24 23:07] VITALS: BP 133/64; PULSE 74; RESP 22; TEMP 36.3; O2SAT 99
[2024-01-25 03:14] VITALS: BP 146/72; PULSE 79; RESP 20; TEMP 36.4; O2SAT 98
[2024-01-25] MEDS: 0.9 % Sodium Chloride Flush 3 ML SYRINGE IVFLUSH ×3 (04:37→20:36)
[2024-01-25] MEDS: Linezolid/D5W 600 MG/300 ML PIGGYBACK 300 MG IV ×2 (04:37→18:08)
[2024-01-25 07:47] LABS: Glucose, Whole Blood 195 mg/dL (60-115)
[2024-01-25 08:00] VITALS: BP 152/79; PULSE 84; RESP 20; TEMP 36.2; O2SAT 99
[2024-01-25] MEDS: Insulin Lispro 100 UNIT/ML 3 ML VIAL SUBCUT ×2 (09:32→20:35)
[2024-01-25] MEDS: Metoprolol Tartrate 25 MG TABLET PO ×2 (09:33→20:35)
[2024-01-25] MEDS: Escitalopram Oxalate 10 MG TABLET PO (09:33)
[2024-01-25] MEDS: Magnesium Oxide 400 MG TABLET PO ×2 (09:33→20:34)
[2024-01-25 11:56] LABS: Glucose, Whole Blood 140 mg/dL (60-115)
[2024-01-25 12:00] VITALS: BP 143/70; PULSE 92; RESP 20; TEMP 36.1; O2SAT 96
--- NOTE | 2024-01-25 12:32 | MHC.CM.PN ---
per rounds, pt is not yet ready for DC. She is receiving IV ABX for sepsis, pneumonia. DCP is to return to [facility]. Clincal update sent to SNF.
--- NOTE | 2024-01-25 14:42 | P.PNIM_ITS ---
Subjective Subjective Date of Service: 01/26/24 Interval History: Being followed for hypoxia plus AMS found to have severe sepsis due to pneumonia Being followed for pneumonia/UTI/Enterococcus bacteremia. Patient nonverbal but smiles, no acute events overnight noted to have normal vitals. Took by mouth medications without choking or coughing. Review of Systems Unable to obtain due to mental status. Physical Exam 2 Vital Signs: Vital Signs: Last Vital Signs Temp 97.0 F 01/25/24 12:00 Pulse 92 01/25/24 12:00 Resp 20 01/25/24 12:00 BP 143/70 H 01/25/24 12:00 Pulse Ox 96 01/25/24 12:00 O2 Del Method Nasal Cannula 01/25/24 12:00 O2 Flow Rate 2 01/25/24 12:00 BMI result Body Mass Index 33.0 Const: Other: Gen: Awake alert resting comfortably, smiling , in no acute distress. HEENT: sclera anicteric, moist mucus membranes Neck: supple Lungs: diminished R lung Heart: irregular, no murmurs Abd: soft, non-tender, non-distended Ext: edema Skin: warm/well-perfused Neuro: alert, moving all extremities Objective Data Active Medications Acetaminophen (Acetaminophen Supp 650 Mg Supp.Rect) 650 mg [place] Q6H PRN PRN Reason: mild pain, fever, hsu Last Admin: 01/20/24 17:13 Dose: 650 mg Documented By: RJ Atorvastatin Calcium (Atorvastatin Calcium 10 Mg Tablet) 10 mg PO BEDTIME [facility] Last Admin: 01/24/24 20:48 Dose: 10 mg Documented By: ODALIS Bisacodyl (Bisacodyl 10 Mg Supp.Rect) 10 mg [place] DAILY PRN PRN Reason: Constipation Calcium Carbonate (Calcium Carbonate 750 Mg Tab.Chew) 750 mg PO Q4H PRN PRN Reason: Heartburn Escitalopram Oxalate (Escitalopram Oxalate 10 Mg Tablet) 10 mg PO DAILY [facility] Last Admin: 01/25/24 09:33 Dose: 10 mg Documented By: CALE Glucose (Glucose Gel 15 Gm Gel..Gram.) 15 gm PO Q15M PRN; Protocol PRN Reason: per Hypoglycemia Standing Ord. Dextrose (D10) 250 mls @ 750 mls/hr IV Q15M PRN; Protocol PRN Reason: per Hypoglycemia Standing Ord. Linezolid (Zyvox/D5w) 600 mg in 300 mls @ 300 mls/hr IV Q12H [facility] Last Infusion: 01/25/24 06:21 Dose: Infused Documented By: ODALIS Insulin Human Lispro (Insulin Lispro 100 Unit/Ml 3 Ml Vial) 0 unit SUBCUT QIDACHS [facility]; Protocol Last Admin: 01/25/24 12:03 Dose: Not Given Documented By: CALE Non-Admin Reason: No Insulin Coverage Magnesium Hydroxide (Milk Of Magnesia 30 Ml Oral.Susp) 30 ml PO DAILY PRN PRN Reason: Constipation Magnesium Oxide (Magnesium Oxide 400 Mg Tablet) 400 mg PO BID [facility] Last Admin: 01/25/24 09:33 Dose: 400 mg Documented By: CALE Melatonin (Melatonin 3 Mg Tablet) 6 mg PO BEDTIME PRN PRN Reason: Insomnia Metoprolol Tartrate (Metoprolol Tartrate 25 Mg Tablet) 25 mg PO BID [facility]; Protocol Last Admin: 01/25/24 09:33 Dose: 25 mg Documented By: CALE Rivaroxaban (Rivaroxaban 20 Mg Tablet) 20 mg PO DAILY@1700 [facility] Last Admin: 01/24/24 16:59 Dose: Not Given Documented By: MARY Non-Admin Reason: pt will not take medication Senna (Sennosides 8.6 Mg Tablet) 17.2 mg PO DAILY PRN PRN Reason: No BM in 2 Days Sodium Biphosphate/Sodium Phosphate (Sodium Phosphate,[place]-Dibasic 133 Ml Enema) 117 ml [place] DAILY PRN PRN Reason: Bowel Management Sodium Chloride (0.9 % Sodium Chloride Flush 3 Ml Syringe) 3 ml IVFLUSH QSHIFT [facility] Last Admin: 01/25/24 09:32 Dose: 3 ml Documented By: CALE Labs 01/26/24 05:49 01/26/24 05:49 Labs: Laboratory Results - last 24 hr 01/24/24 01/24/24 01/25/24 16:06 20:50 07:38 POC Glucose 151 H 192 H 195 H 01/25/24 10:52 POC Glucose 140 H Assessment and Plan (1) Gram-positive bacteremia: Status: Acute Plan 78yo F LTC resident of [facility] with AF + hx DVT on Xarelto, recurrent UTIs, DM2, and schizoaffecive disorder presenting with hypoxia + AMS, found to have severe sepsis due to pneumonia 1.RLL pneumonia (sepsis resolved) -persistent leukocytosis, on IV linezolid, will switch to by mouth once able to tolerate diet -waiting for re-evaluation by speech therapy -will place on pureed diet and nectar thick and give medicines crushed 2.UTI/Enterococcus bacteremia resistant to vancomycin - echo showed EF 50-55%, switch to Zyvox as above 3.AF/RVR -continue metoprolol for rate control,continue Xarelto 4. ANABELL - likely prerenal resolved with IV fluids follow renal function 5.DM II -acceptable control on lispro correctional scale, will resume Lantus 12 units at bedtime once tolerating by mouth 6. History of DVT continue Rivaroxaban 7. Acute hypokalemia will replete and follow labs Full Code In my clinical judgment, the patient requires continued inpatient hospitalization for the following reasons: IV ABX Quality Stroke Does the patient have a stroke diagnosis?: No VTE Prior VTE?: Yes VTE Risk Level:: Medical - moderate - high VTE Device Contraindication: Treatment Not Indicated VTE Drug Contraindication: N/A - Med Ordered
[2024-01-25 15:19] VITALS: BP 141/93; PULSE 86; RESP 18; TEMP 36.4; O2SAT 97
[2024-01-25 15:45] LABS: Hematocrit 30.7 % (37.0-47.0); Hemoglobin 9.7 g/dl (12.0-16.0); Mean Corpuscular HGB Conc 31.6 g/dl (31.0-35.0); Mean Corpuscular Hemoglobin 29.8 pg (27.0-33.0); Mean Corpuscular Volume 94.2 fL (80.0-98.0); Mean Platelet Volume 10.8 fL (9.4-12.3); Platelet Count 306 X10*3/uL (160-400); Red Blood Count 3.26 X10*6/uL (4.20-5.50); Red Cell Distribution Width 14.8 % (11.0-16.0); White Blood Count 15.7 X10*3/uL (4.8-10.8)
[2024-01-25 15:47] LABS: Alanine Aminotransferase 14 U/L (0-31); Albumin Level 2.6 g/dL (3.5-5.0); Alkaline Phosphatase 70 U/L (39-117); Anion Gap 13 (12-20); Aspartate Amino Transferase 13 U/L (5-31); Bilirubin Total 0.4 mg/dL (0.0-1.0); Blood Urea Nitrogen 11 mg/dL (9-16); Calcium 8.3 mg/dL (8.4-10.2); Carbon Dioxide 32 mmol/L (22-29); Chloride 101 mmol/L (96-108); Creatinine Clr Calc Pharmacy 98.3; Estimated Glomerular Filt Rate > 60; Glucose Fasting 155 mg/dL (60-99); Potassium 2.8 mmol/L (3.3-5.1); Sodium 143 mmol/L (135-145)
[2024-01-25 15:52] LABS: Basophils Percent Auto 0.2 % (0-2); Eosinophils Percent Auto 0.1 % (0-4); Imm Gran Abs Auto 0.24 X10*3/uL (0.00-0.03); Imm Gran Pct Auto 1.5 % (0.0-0.4); Lymphocytes Absolute Auto 1.2 X10*3/uL (1.2-4.9); Lymphocytes Percent Auto 7.2 % (20-40); Monocytes Percent Auto 6.4 % (2-11); Neutrophils Absolute Auto 13.6 x10*3/uL (2.0-8.3); Neutrophils Percent Auto 84.6 % (45-73)
[2024-01-25 15:53] LABS: MANUAL DIFF FLAG NO
[2024-01-25 17:06] LABS: Glucose, Whole Blood 148 mg/dL (60-115)
[2024-01-25] MEDS: Potassium Chloride Packet 20 MEQ PACKET 60 MEQ PO (18:03)
[2024-01-25] MEDS: Rivaroxaban 20 MG TABLET PO (18:09)
[2024-01-25 19:33] VITALS: BP 136/76; PULSE 103; RESP 18; TEMP 36.6; O2SAT 95
[2024-01-25 19:56] LABS: Glucose, Whole Blood 227 mg/dL (60-115)
[2024-01-25] MEDS: Atorvastatin Calcium 10 MG TABLET PO (20:34)
[2024-01-25 20:35] VITALS: BP 136/76; PULSE 98
[2024-01-26] VITALS (7 sets, daily range): BP systolic 118–154; BP diastolic 67–89; PULSE 87–103; RESP 14–20; TEMP 36.3–36.9; O2SAT 96–98
[2024-01-26] MEDS: Linezolid/D5W 600 MG/300 ML PIGGYBACK 300 MG IV ×2 (04:22→16:03)
[2024-01-26 06:18] LABS: MANUAL DIFF FLAG NO
[2024-01-26 06:21] LABS: Basophils Percent Auto 0.1 % (0-2); Eosinophils Percent Auto 0.2 % (0-4); Hematocrit 31.7 % (37.0-47.0); Hemoglobin 9.8 g/dl (12.0-16.0); Imm Gran Abs Auto 0.12 X10*3/uL (0.00-0.03); Imm Gran Pct Auto 0.9 % (0.0-0.4); Lymphocytes Absolute Auto 0.9 X10*3/uL (1.2-4.9); Lymphocytes Percent Auto 6.5 % (20-40); Mean Corpuscular HGB Conc 30.9 g/dl (31.0-35.0); Mean Corpuscular Hemoglobin 29.3 pg (27.0-33.0); Mean Corpuscular Volume 94.6 fL (80.0-98.0); Mean Platelet Volume 10.4 fL (9.4-12.3); Monocytes Absolute Auto 0.9 X10*3/uL (0.1-1.2); Monocytes Percent Auto 6.9 % (2-11); Neutrophils Absolute Auto 11.4 x10*3/uL (2.0-8.3); Neutrophils Percent Auto 85.4 % (45-73); Platelet Count 289 X10*3/uL (160-400); Red Blood Count 3.35 X10*6/uL (4.20-5.50); White Blood Count 13.3 X10*3/uL (4.8-10.8)
[2024-01-26 07:18] LABS: Alanine Aminotransferase 14 U/L (0-31); Albumin Level 2.5 g/dL (3.5-5.0); Anion Gap 12 (12-20); Aspartate Amino Transferase 19 U/L (5-31); Bilirubin Total 0.5 mg/dL (0.0-1.0); Blood Urea Nitrogen 12 mg/dL (9-16); Calcium 8.2 mg/dL (8.4-10.2); Carbon Dioxide 34 mmol/L (22-29); Chloride 100 mmol/L (96-108); Creatinine Clr Calc Pharmacy 85.8; Estimated Glomerular Filt Rate > 60; Glucose Fasting 206 mg/dL (60-99); Potassium 2.9 mmol/L (3.3-5.1); Sodium 143 mmol/L (135-145); Total Protein 5.9 g/dL (6.5-8.0)
[2024-01-26 07:25] LABS: Glucose, Whole Blood 174 mg/dL (60-115)
[2024-01-26 07:35] LABS: Alkaline Phosphatase 75 U/L (39-117)
[2024-01-26] MEDS: Insulin Lispro 100 UNIT/ML 3 ML VIAL SUBCUT ×4 (07:45→21:27)
[2024-01-26] MEDS: Escitalopram Oxalate 10 MG TABLET PO (07:46)
[2024-01-26] MEDS: KCl 20 mEq in 5 % Dex/Lact Rin 20 MEQ/1,000 ML IV.SOLN 80 MEQ IVCONT (07:46)
[2024-01-26] MEDS: Metoprolol Tartrate 25 MG TABLET PO ×2 (07:46→20:28)
[2024-01-26] MEDS: 0.9 % Sodium Chloride Flush 3 ML SYRINGE IVFLUSH ×2 (07:47→16:10)
[2024-01-26] MEDS: Magnesium Oxide 400 MG TABLET PO ×2 (08:12→20:28)
[2024-01-26] MEDS: Potassium Chloride Packet 20 MEQ PACKET 40 MEQ PO (08:13)
[2024-01-26 12:18] LABS: Glucose, Whole Blood 203 mg/dL (60-115)
[2024-01-26 15:51] LABS: Glucose, Whole Blood 164 mg/dL (60-115)
[2024-01-26] MEDS: Rivaroxaban 20 MG TABLET PO (16:03)
--- NOTE | 2024-01-26 17:42 | P.PNIM_ITS ---
Subjective Subjective Date of Service: 01/27/24 Interval History: Patient awake do not verbalize No acute events overnight, decreased by mouth intake. Review of Systems Unable to obtain due to mental status Physical Exam 2 Vital Signs: Vital Signs: Last Vital Signs Temp 98.4 F 01/26/24 15:44 Pulse 97 01/26/24 15:44 Resp 14 01/26/24 15:44 BP 147/77 H 01/26/24 15:44 Pulse Ox 97 01/26/24 15:44 O2 Del Method Nasal Cannula 01/26/24 15:44 O2 Flow Rate 1 01/26/24 15:44 BMI result Body Mass Index 33.0 Const: Other: Gen: Awake alert resting comfortably, nonverbal, keeps eyes closed in no acute distress. HEENT: sclera anicteric, moist mucus membranes Neck: supple Lungs: diminished Heart: irregular, no murmurs Abd: soft, non-tender, non-distended Ext: LE edema Skin: warm/well-perfused Neuro: alert, moving all extremities Objective Data Active Medications Acetaminophen (Acetaminophen Supp 650 Mg Supp.Rect) 650 mg MD Q6H PRN PRN Reason: mild pain, fever, hsu Last Admin: 01/20/24 17:13 Dose: 650 mg Documented By: RJ Atorvastatin Calcium (Atorvastatin Calcium 10 Mg Tablet) 10 mg PO BEDTIME [facility] Last Admin: 01/25/24 20:34 Dose: 10 mg Documented By: BHANU Bisacodyl (Bisacodyl 10 Mg Supp.Rect) 10 mg MD DAILY PRN PRN Reason: Constipation Calcium Carbonate (Calcium Carbonate 750 Mg Tab.Chew) 750 mg PO Q4H PRN PRN Reason: Heartburn Escitalopram Oxalate (Escitalopram Oxalate 10 Mg Tablet) 10 mg PO DAILY [facility] Last Admin: 01/26/24 07:46 Dose: 10 mg Documented By: TANVI Glucose (Glucose Gel 15 Gm Gel..Gram.) 15 gm PO Q15M PRN; Protocol PRN Reason: per Hypoglycemia Standing Ord. Dextrose (D10) 250 mls @ 750 mls/hr IV Q15M PRN; Protocol PRN Reason: per Hypoglycemia Standing Ord. Linezolid (Zyvox/D5w) 600 mg in 300 mls @ 300 mls/hr IV Q12H [facility] Last Admin: 01/26/24 16:03 Dose: 300 mls/hr Documented By: TANVI Potassium Cl/Dextrose/Lact Ringer's (Kcl 20 Meq In 5 % Dex/Lact Rin) 20 meq in 1,000 mls @ 80 mls/hr IVCONT .[id number] [facility] Stop: 01/26/24 19:59 Last Admin: 01/26/24 07:46 Dose: 80 mls/hr Documented By: TANVI Insulin Human Lispro (Insulin Lispro 100 Unit/Ml 3 Ml Vial) 0 unit SUBCUT QIDACHS [facility]; Protocol Last Admin: 01/26/24 16:03 Dose: 2 unit Documented By: TANVI Magnesium Hydroxide (Milk Of Magnesia 30 Ml Oral.Susp) 30 ml PO DAILY PRN PRN Reason: Constipation Magnesium Oxide (Magnesium Oxide 400 Mg Tablet) 400 mg PO BID [facility] Last Admin: 01/26/24 08:12 Dose: 400 mg Documented By: TANVI Melatonin (Melatonin 3 Mg Tablet) 6 mg PO BEDTIME PRN PRN Reason: Insomnia Metoprolol Tartrate (Metoprolol Tartrate 25 Mg Tablet) 25 mg PO BID [facility]; Protocol Last Admin: 01/26/24 07:46 Dose: 25 mg Documented By: TANVI Rivaroxaban (Rivaroxaban 20 Mg Tablet) 20 mg PO DAILY@1700 [facility] Last Admin: 01/26/24 16:03 Dose: 20 mg Documented By: TANVI Senna (Sennosides 8.6 Mg Tablet) 17.2 mg PO DAILY PRN PRN Reason: No BM in 2 Days Sodium Biphosphate/Sodium Phosphate (Sodium Phosphate,[facility]-Dibasic 133 Ml Enema) 117 ml MD DAILY PRN PRN Reason: Bowel Management Sodium Chloride (0.9 % Sodium Chloride Flush 3 Ml Syringe) 3 ml IVFLUSH QSHIFT [facility] Last Admin: 01/26/24 16:10 Dose: 3 ml Documented By: TANVI Labs 01/27/24 05:30 01/27/24 05:30 Labs: Laboratory Results - last 24 hr 01/25/24 01/26/24 01/26/24 19:52 05:49 07:14 MCV 94.6 MCH 29.3 MCHC 30.9 L RDW 15.0 Plt Count 289 MPV 10.4 Immature Gran % (Auto) 0.9 H Neut % (Auto) 85.4 H Lymph % (Auto) 6.[address] [facility] % (Auto) 6.9 Eos % (Auto) 0.2 Baso % (Auto) 0.1 Lymph # (Auto) 0.[address] [facility] # (Auto) 0.9 Eos # (Auto) 0.0 Baso # (Auto) 0.0 Abs Immat Gran (auto) 0.12 H Absolute Neuts (auto) 11.4 H Absolute Nucleated RBC 0.000 Nucleated RBC % (auto) 0.0 Anion Gap 12 Estim Creat Clear Calc 85.8 Estimated GFR > 60 POC Glucose 227 H 174 H Fasting Glucose 206 H Calcium 8.2 L Total Bilirubin 0.5 AST 19 ALT 14 Alkaline Phosphatase 75 Total Protein 5.9 L Albumin 2.5 L 01/26/24 01/26/24 12:14 15:41 MCV MCH MCHC RDW Plt Count MPV Immature Gran % (Auto) Neut % (Auto) Lymph % (Auto) [facility] % (Auto) Eos % (Auto) Baso % (Auto) Lymph # (Auto) [facility] # (Auto) Eos # (Auto) Baso # (Auto) Abs Immat Gran (auto) Absolute Neuts (auto) Absolute Nucleated RBC Nucleated RBC % (auto) Anion Gap Estim Creat Clear Calc Estimated GFR POC Glucose 203 H 164 H Fasting Glucose Calcium Total Bilirubin AST ALT Alkaline Phosphatase Total Protein Albumin Assessment and Plan (1) Gram-positive bacteremia: Status: Acute Plan 78yo F LTC resident [facility] with AF + hx DVT on Xarelto, recurrent UTIs, DM2, and schizoaffecive disorder presenting with hypoxia + AMS, found to have severe sepsis due to pneumonia 1.RLL pneumonia (sepsis resolved) -persistent leukocytosis, on IV linezolid, will switch to by mouth once able to tolerate diet -waiting for re-evaluation by speech therapy -on pureed diet and nectar thick and give medicines crushed 2.UTI/Enterococcus bacteremia resistant to vancomycin - echo showed EF 50-55%, switch to Zyvox as above 3.AF/RVR -continue metoprolol for rate control,continue Xarelto 4. ANABELL - likely prerenal resolved with IV fluids follow renal function 5.DM II -acceptable control on lispro correctional scale, will resume Lantus 12 units at bedtime once tolerating by mouth 6. History of DVT continue Rivaroxaban 7. Acute hypokalemia will replete and follow labs Full Code In my clinical judgment, the patient requires continued inpatient hospitalization for the following reasons: IV ABX Quality Stroke Does the patient have a stroke diagnosis?: No VTE Prior VTE?: Yes VTE Risk Level:: Medical - moderate - high VTE Device Contraindication: Treatment Not Indicated VTE Drug Contraindication: N/A - Med Ordered
--- NOTE | 2024-01-26 17:44 | P.CDIM_ITS ---
PROVIDER RESPONSE TEXT: To clarify, the appropriate diagnosis supported by the clinical indicators: Hypokalemia: see note QUERY TEXT: PHYSICIAN'S DOCUMENTATION REQUEST Date of Query: 01/26/2024 08:58 AM EDT Patient Name: Amarilys Badillo Admit Date: 01/16/2024 Dear Anthony Basilio MD, A review of the medical record indicates additional documentation may be needed. Please review below and update the documentation accordingly. Clinical Indicators: LABS: potassium 2.6L 2.8 L Klor-Con Based on the above, is there a diagnosis that correlates with these lab findings: Hypokalemia possible, probable, suspected, resolved Labs indicate a diagnosis of (please specify) Other (explain) Clinically unable to determine (explain) Thank you, Juliet Dela Cruz, CCS, CDIS Use of terms such as suspected, likely, concern for, or probable (associated with a specific diagnosi s that is being evaluated, monitored, or treated as if it exists) are acceptable and can be coded in the inpatient se tting, when documented at the time of discharge. Please use your independent medical judgment in providing your response. THIS QUERY IS PART OF THE PERMANENT MEDICAL RECORD
[2024-01-26] MEDS: Atorvastatin Calcium 10 MG TABLET PO (20:28)
[2024-01-26 21:12] LABS: Glucose, Whole Blood 205 mg/dL (60-115)
[2024-01-27] VITALS (8 sets, daily range): BP systolic 131–168; BP diastolic 61–94; PULSE 82–107; RESP 16–22; TEMP 36.2–37.1; O2SAT 92–98
[2024-01-27] MEDS: 0.9 % Sodium Chloride Flush 3 ML SYRINGE IVFLUSH ×4 (01:00→21:26)
[2024-01-27] MEDS: Linezolid/D5W 600 MG/300 ML PIGGYBACK 300 MG IV ×2 (04:28→16:03)
[2024-01-27 05:48] LABS: Hematocrit 29.5 % (37.0-47.0); Hemoglobin 9.1 g/dl (12.0-16.0); Mean Corpuscular HGB Conc 30.8 g/dl (31.0-35.0); Mean Corpuscular Hemoglobin 29.5 pg (27.0-33.0); Mean Corpuscular Volume 95.8 fL (80.0-98.0); Mean Platelet Volume 10.6 fL (9.4-12.3); Platelet Count 270 X10*3/uL (160-400); Red Blood Count 3.08 X10*6/uL (4.20-5.50); Red Cell Distribution Width 15.1 % (11.0-16.0)
[2024-01-27 06:09] LABS: Anion Gap 12 (12-20); Blood Urea Nitrogen 12 mg/dL (9-16); Calcium 7.9 mg/dL (8.4-10.2); Carbon Dioxide 32 mmol/L (22-29); Chloride 102 mmol/L (96-108); Creatinine Clr Calc Pharmacy 88.6; Estimated Glomerular Filt Rate > 60; Glucose Random 245 mg/dL (60-115); Potassium 3.4 mmol/L (3.3-5.1); Sodium 143 mmol/L (135-145)
[2024-01-27 07:24] LABS: Glucose, Whole Blood 199 mg/dL (60-115)
[2024-01-27] MEDS: Metoprolol Tartrate 25 MG TABLET PO ×2 (08:46→21:24)
[2024-01-27] MEDS: Magnesium Oxide 400 MG TABLET PO ×2 (08:46→21:24)
[2024-01-27] MEDS: Escitalopram Oxalate 10 MG TABLET PO (08:46)
[2024-01-27] MEDS: Insulin Lispro 100 UNIT/ML 3 ML VIAL SUBCUT ×2 (08:46→17:53)
[2024-01-27 12:09] LABS: Glucose, Whole Blood 142 mg/dL (60-115)
--- NOTE | 2024-01-27 14:04 | MHC.SL.SWA ---
Speech Pathologist Impression: Risk of aspiration, oropharyngeal dysphagia Risk of Aspiration Due to: History of Pneumonia Dysphasia Diet Status: UPGRADE to NDD2/THIN Liquid Consistency and Strategies for Safe Swallow: Liquid Intake Recommendation: Thin Liquid Intake Strategies: Small Sips No Straws Solid Food Consistency: Dietary Recommendations: Grnd/Mech Altered (NDD2) Additional Modifications to Solid Foods: Patient demonstrates significantly prolonged oral phase, presence of oral residue, multiple swallow attempts, and belching with intake of liquids. Recommend UPGRADE from PUREED DIET (NDD1) and NECTAR THICK liquids to GROUND/MECH ALTERED (NDD2) solids and THIN liquids, pills to be CRUSHED in PUREE. Patient requires TOTAL ASSISTANCE feeding with strict precautions: moisten and soften food with sauces/gravies, give small bites, allow patient ample time to chew and swallow, check oral cavity for clearance periodically, alternate bites with sips of liquid to clear residue, ensure oral cavity is clear before giving more bites, upright 90 degree position during PO intake and for at least 30 minutes afterwards. Patient may benefit from smaller, more frequent meals throughout the day to reduce fatigue and encourage more PO given it takes patient a long time to finish a meal. Oral Medication Intake: Crushed with Puree Please contact the pharmacy regarding appropriate crushable or liquid drug formulations that are available whenever modified delivery is recommended. Compensatory Strategies and Precautions to be Taken for Safe Swallow: Sitting Upright (90 deg) No Straw Small Bites and Sips Alternate Liquids/Solids Rate of Ingestion Change Oral Check Avoid Specific Foods Supervision While Eating and Drinking for Safe Swallow: Total Assistance (1:1) Foods to Avoid: Hard, dry, or sticky foods; tough, difficult to chew solids Swallowing Recommended Treatments: Compens. Strategy Educat. Recommendation for Speech: Inpatient Speech Therapy Comment: SEED CLEANING MACHINE OPERATOR will continue to follow to re-assess diet modification and feeding needs. Frequency/Duration: M-F PRN Date Range for Service Req: Timeline to reassess: Irrigator Head Clinican/Clinical Fellow: No Supervisory Statement: I have reviewed and agree with the student/clinical fellow's documentation: N/A Speech Language Pathologist: Jessica King M.A., CCC-SEED CLEANING MACHINE OPERATOR
[2024-01-27] MEDS: Rivaroxaban 20 MG TABLET PO (16:03)
--- NOTE | 2024-01-27 16:17 | MHC.CM.PN ---
EMR REVIEWED, PER ROUNDS PT NOT YET MEDICALLY CLEARED FOR DC BACK TO [facility] FOR LTC, CM WILL CONT TO FOLLOW DC NEEDS.
--- NOTE | 2024-01-27 17:15 | HO.PM.IMPN ---
Subjective Subjective Date of Service: 01/28/24 Interval History: Being followed for pneumonia/Enterococcus bacteremia and UTI. Non verbalizing, no acute issues overnight decreased by mouth intake. Review of Systems All other system reviewed and negative Physical Exam Vital Signs: Vital Signs: Last Vital Signs Temp 98.7 F 01/27/24 12:00 Pulse 93 01/27/24 12:00 Resp 22 H 01/27/24 12:00 BP 142/73 H 01/27/24 12:00 Pulse Ox 97 01/27/24 12:00 O2 Del Method Nasal Cannula 01/27/24 12:00 O2 Flow Rate 1 01/27/24 12:00 BMI result Body Mass Index 33.0 Const: Other: Gen: Awake alert resting comfortably, nonverbal, keeps eyes closed in no acute distress. HEENT: sclera anicteric, moist mucus membranes Neck: supple Lungs: No respiratory distress, clear Heart: irregular, no murmurs Abd: soft, non-tender, non-distended Ext: LE edema Skin: warm/well-perfused Neuro: alert, moving all extremities Objective Data Active Medications Acetaminophen (Acetaminophen Supp 650 Mg Supp.Rect) 650 mg NM Q6H PRN PRN Reason: mild pain, fever, hsu Last Admin: 01/20/24 17:13 Dose: 650 mg Documented By: RJ Atorvastatin Calcium (Atorvastatin Calcium 10 Mg Tablet) 10 mg PO BEDTIME [facility] Last Admin: 01/26/24 20:28 Dose: 10 mg Documented By: CHRISTOPHER Bisacodyl (Bisacodyl 10 Mg Supp.Rect) 10 mg NM DAILY PRN PRN Reason: Constipation Calcium Carbonate (Calcium Carbonate 750 Mg Tab.Chew) 750 mg PO Q4H PRN PRN Reason: Heartburn Escitalopram Oxalate (Escitalopram Oxalate 10 Mg Tablet) 10 mg PO DAILY [facility] Last Admin: 01/27/24 08:46 Dose: 10 mg Documented By: ISAIAS Glucose (Glucose Gel 15 Gm Gel..Gram.) 15 gm PO Q15M PRN; Protocol PRN Reason: per Hypoglycemia Standing Ord. Dextrose (D10) 250 mls @ 750 mls/hr IV Q15M PRN; Protocol PRN Reason: per Hypoglycemia Standing Ord. Linezolid (Zyvox/D5w) 600 mg in 300 mls @ 300 mls/hr IV Q12H [facility] Last Admin: 01/27/24 16:03 Dose: 300 mls/hr Documented By: CHRISTOPHER Insulin Human Lispro (Insulin Lispro 100 Unit/Ml 3 Ml Vial) 0 unit SUBCUT QIDACHS [facility]; Protocol Last Admin: 01/27/24 12:11 Dose: Not Given Documented By: ISAIAS Non-Admin Reason: No Insulin Coverage Magnesium Hydroxide (Milk Of Magnesia 30 Ml Oral.Susp) 30 ml PO DAILY PRN PRN Reason: Constipation Magnesium Oxide (Magnesium Oxide 400 Mg Tablet) 400 mg PO BID [facility] Last Admin: 01/27/24 08:46 Dose: 400 mg Documented By: ISAIAS Melatonin (Melatonin 3 Mg Tablet) 6 mg PO BEDTIME PRN PRN Reason: Insomnia Metoprolol Tartrate (Metoprolol Tartrate 25 Mg Tablet) 25 mg PO BID [facility]; Protocol Last Admin: 01/27/24 08:46 Dose: 25 mg Documented By: ISAIAS Rivaroxaban (Rivaroxaban 20 Mg Tablet) 20 mg PO DAILY@1700 [facility] Last Admin: 01/27/24 16:03 Dose: 20 mg Documented By: CHRISTOPHER Senna (Sennosides 8.6 Mg Tablet) 17.2 mg PO DAILY PRN PRN Reason: No BM in 2 Days Sodium Biphosphate/Sodium Phosphate (Sodium Phosphate,[place]-Dibasic 133 Ml Enema) 117 ml NM DAILY PRN PRN Reason: Bowel Management Sodium Chloride (0.9 % Sodium Chloride Flush 3 Ml Syringe) 3 ml IVFLUSH QSHIFT [facility] Last Admin: 01/27/24 16:04 Dose: 3 ml Documented By: CHRISTOPHER Labs 01/27/24 05:30 01/27/24 05:30 Labs: Laboratory Results - last 24 hr 01/26/24 01/27/24 01/27/24 21:06 05:30 07:13 MCV 95.8 MCH 29.5 MCHC 30.8 L RDW 15.1 Plt Count 270 MPV 10.6 Absolute Nucleated RBC 0.000 Nucleated RBC % (auto) 0.0 Anion Gap 12 Estim Creat Clear Calc 88.6 Estimated GFR > 60 POC Glucose 205 H 199 H Random Glucose 245 H Calcium 7.9 L 01/27/24 12:01 MCV MCH MCHC RDW Plt Count MPV Absolute Nucleated RBC Nucleated RBC % (auto) Anion Gap Estim Creat Clear Calc Estimated GFR POC Glucose 142 H Random Glucose Calcium Assessment and Plan (1) Gram-positive bacteremia: Status: Acute Plan 78yo F LTC resident of [facility] with AF + hx DVT on Xarelto, recurrent UTIs, DM2, and schizoaffecive disorder presenting with hypoxia + AMS, found to have severe sepsis due to pneumonia 1.RLL pneumonia (sepsis resolved) -persistent leukocytosis, on IV linezolid, started on 01/22 will switch to by mouth Seen by speech therapy they recommend ground mechanical altered with thin liquids 2.UTI/Enterococcus bacteremia resistant to vancomycin - echo showed EF 50-55%, on iv Zyvox as above as per ID recommendation Repeat blood culture neg 3.AF/RVR -stable ventricular rate, continue metoprolol for rate control,continue Xarelto 4. ANABELL - likely prerenal resolved with IV fluids follow renal function 5.DM II -acceptable control on lispro correctional scale, will resume Lantus 12 units at bedtime once tolerating by mouth 6. History of DVT continue Rivaroxaban 7. Acute hypokalemia repleted and normalized 8. Failure to thrive patient noted to have poor by mouth intake, do not verbalize, keeps eyes closed, call patient's family healthcare proxy iMtul Mayfield and discuss goal of care regarding feeding tube and code status family wishes to discuss this with patient's son and will get back to us at a.m. Full Code In my clinical judgment, the patient requires continued inpatient hospitalization for the following reasons: IV ABX Quality Stroke Does the patient have a stroke diagnosis?: No VTE Prior VTE?: Yes VTE Risk Level:: Medical - moderate - high VTE Device Contraindication: Treatment Not Indicated VTE Drug Contraindication: N/A - Med Ordered
[2024-01-27 17:34] LABS: Glucose, Whole Blood 214 mg/dL (60-115)
[2024-01-27] MEDS: Atorvastatin Calcium 10 MG TABLET PO (21:24)
[2024-01-27 21:53] LABS: Glucose, Whole Blood 123 mg/dL (60-115)
[2024-01-28] VITALS (8 sets, daily range): BP systolic 114–136; BP diastolic 67–88; PULSE 94–97; RESP 16–20; TEMP 36.2–37; O2SAT 89–99
[2024-01-28] MEDS: Linezolid/D5W 600 MG/300 ML PIGGYBACK 300 MG IV ×2 (04:28→16:04)
[2024-01-28 07:05] LABS: Glucose, Whole Blood 191 mg/dL (60-115)
[2024-01-28] MEDS: Metoprolol Tartrate 25 MG TABLET PO ×2 (08:57→20:47)
[2024-01-28] MEDS: Insulin Lispro 100 UNIT/ML 3 ML VIAL SUBCUT (08:57)
[2024-01-28] MEDS: Magnesium Oxide 400 MG TABLET PO ×2 (08:58→20:47)
[2024-01-28] MEDS: Escitalopram Oxalate 10 MG TABLET PO (08:58)
[2024-01-28] MEDS: 0.9 % Sodium Chloride Flush 3 ML SYRINGE IVFLUSH ×3 (08:58→22:41)
[2024-01-28 10:59] LABS: Glucose, Whole Blood 188 mg/dL (60-115)
--- NOTE | 2024-01-28 14:26 | MHC.CM.PN ---
MOST uploaded to chart: DNR, DNI, use CPAP, transfer to hosp., no dialysis, no artificial nutrition, use artificial hydration.
[2024-01-28] MEDS: Rivaroxaban 20 MG TABLET PO (16:03)
[2024-01-28 16:24] LABS: Glucose, Whole Blood 169 mg/dL (60-115)
--- NOTE | 2024-01-28 16:27 | HO.PM.IMPN ---
Subjective Subjective Date of Service: 01/28/24 Interval History: Being followed for pneumonia and Enterococcus bacteremia No change in patient's clinical condition remains nonverbal with decreased by mouth intake, no acute events overnight. No nausea, no vomiting, no fevers. Review of Systems Unable to obtain due to mental status. Physical Exam Vital Signs: Vital Signs: Last Vital Signs Temp 97.6 F 01/28/24 15:58 Pulse 94 01/28/24 15:58 Resp 16 01/28/24 15:58 BP 136/72 01/28/24 15:58 Pulse Ox 97 01/28/24 15:58 O2 Del Method Room Air 01/28/24 15:58 O2 Flow Rate 1 01/28/24 11:12 BMI result Body Mass Index 33.0 Const: Other: Gen: Awake alert resting comfortably, nonverbal, keeps eyes closed in no acute distress. HEENT: sclera anicteric, moist mucus membranes Neck: supple Lungs: No respiratory distress, clear Heart: irregular, no murmurs Abd: soft, non-tender, non-distended Ext: LE edema Skin: warm/well-perfused Neuro: alert, moving all extremities Objective Data Active Medications Acetaminophen (Acetaminophen Supp 650 Mg Supp.Rect) 650 mg [place] Q6H PRN PRN Reason: mild pain, fever, hsu Last Admin: 01/20/24 17:13 Dose: 650 mg Documented By: RJ Atorvastatin Calcium (Atorvastatin Calcium 10 Mg Tablet) 10 mg PO BEDTIME [facility] Last Admin: 01/27/24 21:24 Dose: 10 mg Documented By: KARSTEN Bisacodyl (Bisacodyl 10 Mg Supp.Rect) 10 mg [place] DAILY PRN PRN Reason: Constipation Calcium Carbonate (Calcium Carbonate 750 Mg Tab.Chew) 750 mg PO Q4H PRN PRN Reason: Heartburn Escitalopram Oxalate (Escitalopram Oxalate 10 Mg Tablet) 10 mg PO DAILY [facility] Last Admin: 01/28/24 08:58 Dose: 10 mg Documented By: ISAIAH Glucose (Glucose Gel 15 Gm Gel..Gram.) 15 gm PO Q15M PRN; Protocol PRN Reason: per Hypoglycemia Standing Ord. Dextrose (D10) 250 mls @ 750 mls/hr IV Q15M PRN; Protocol PRN Reason: per Hypoglycemia Standing Ord. Linezolid (Zyvox/D5w) 600 mg in 300 mls @ 300 mls/hr IV Q12H [facility] Last Admin: 01/28/24 16:04 Dose: 300 mls/hr Documented By: ISAIAH Insulin Human Lispro (Insulin Lispro 100 Unit/Ml 3 Ml Vial) 0 unit SUBCUT QIDACHS [facility]; Protocol Last Admin: 01/28/24 16:01 Dose: Not Given Documented By: ISAIAH Non-Admin Reason: Physician Held Med Magnesium Hydroxide (Milk Of Magnesia 30 Ml Oral.Susp) 30 ml PO DAILY PRN PRN Reason: Constipation Magnesium Oxide (Magnesium Oxide 400 Mg Tablet) 400 mg PO BID [facility] Last Admin: 01/28/24 08:58 Dose: 400 mg Documented By: ISAIAH Melatonin (Melatonin 3 Mg Tablet) 6 mg PO BEDTIME PRN PRN Reason: Insomnia Metoprolol Tartrate (Metoprolol Tartrate 25 Mg Tablet) 25 mg PO BID [facility]; Protocol Last Admin: 01/28/24 08:57 Dose: 25 mg Documented By: ISAIAH Rivaroxaban (Rivaroxaban 20 Mg Tablet) 20 mg PO DAILY@1700 [facility] Last Admin: 01/28/24 16:03 Dose: 20 mg Documented By: ISAIAH Senna (Sennosides 8.6 Mg Tablet) 17.2 mg PO DAILY PRN PRN Reason: No BM in 2 Days Sodium Biphosphate/Sodium Phosphate (Sodium Phosphate,[place]-Dibasic 133 Ml Enema) 117 ml [place] DAILY PRN PRN Reason: Bowel Management Sodium Chloride (0.9 % Sodium Chloride Flush 3 Ml Syringe) 3 ml IVFLUSH QSHIFT [facility] Last Admin: 01/28/24 16:04 Dose: 3 ml Documented By: ISAIAH Labs 01/27/24 05:30 01/27/24 05:30 Labs: Laboratory Results - last 24 hr 01/27/24 01/27/24 01/28/24 17:30 21:49 06:52 POC Glucose 214 H 123 H 191 H 01/28/24 01/28/24 10:52 16:19 POC Glucose 188 H 169 H Assessment and Plan (1) Gram-positive bacteremia: Status: Acute Plan 78yo F LTC resident of [facility] with AF + hx DVT on Xarelto, recurrent UTIs, DM2, and schizoaffecive disorder presenting with hypoxia + AMS, found to have severe sepsis due to pneumonia 1.RLL pneumonia (sepsis resolved) -persistent leukocytosis, on IV linezolid, started on 01/22 will switch to by mouth d 10/31 Seen by speech therapy they recommend ground mechanical altered with thin liquids By mouth intake remains poor 2.UTI/Enterococcus bacteremia resistant to vancomycin - echo showed EF 50-55%, on iv Zyvox as above as per ID recommendation Repeat blood culture neg 3.AF/RVR -stable ventricular rate, continue metoprolol for rate control,continue Xarelto 4. ANABELL - likely prerenal resolved with IV fluids follow renal function 5.DM II -acceptable control on lispro correctional scale, will resume Lantus 12 units at bedtime once tolerating by mouth 6. History of DVT continue Rivaroxaban 7. Acute hypokalemia repleted and normalized 8. Failure to thrive patient noted to have poor by mouth intake, do not verbalize, keeps eyes closed, spoke with healthcare proxy Mitul Mayfield and discuss goal of care regarding feeding tube and code status family Discussed and decided DNR DNI and no artificial feedings as per patient wishes, MOLST form signed. Full Code In my clinical judgment, the patient requires continued inpatient hospitalization for the following reasons: IV ABX and safe return back to rehab Quality Stroke Does the patient have a stroke diagnosis?: No VTE Prior VTE?: Yes VTE Risk Level:: Medical - moderate - high VTE Device Contraindication: Treatment Not Indicated VTE Drug Contraindication: N/A - Med Ordered
[2024-01-28 20:47] LABS: Glucose, Whole Blood 164 mg/dL (60-115)
[2024-01-28] MEDS: Atorvastatin Calcium 10 MG TABLET PO (20:48)
[2024-01-29] VITALS: BP 112/60; PULSE 92; RESP 18; TEMP 36.5; O2SAT 98
[2024-01-29 04:00] VITALS: BP 130/88; PULSE 98; RESP 18; TEMP 36.6; O2SAT 97
[2024-01-29] MEDS: Linezolid/D5W 600 MG/300 ML PIGGYBACK 300 MG IV (04:52)
[2024-01-29 07:20] LABS: Glucose, Whole Blood 169 mg/dL (60-115)
[2024-01-29 07:44] VITALS: BP 115/69; PULSE 94; RESP 20; TEMP 36.4; O2SAT 98
[2024-01-29 08:04] VITALS: BP 115/69; PULSE 94
[2024-01-29] MEDS: Magnesium Oxide 400 MG TABLET PO (08:04)
[2024-01-29] MEDS: Escitalopram Oxalate 10 MG TABLET PO (08:04)
[2024-01-29] MEDS: Metoprolol Tartrate 25 MG TABLET PO (08:04)
[2024-01-29] MEDS: 0.9 % Sodium Chloride Flush 3 ML SYRINGE IVFLUSH (08:07)
--- NOTE | 2024-01-29 10:17 | P.DS_ITS ---
DS: Providers Provider Date of Service: 01/29/24 Date of admission: 01/16/24 19:55 Date of discharge: 01/29/24 Primary care physician: Jorje Perrin MD Consults: 01/22/24 13:56 Consult to Infectious Diseases Routine Consulting Provider: [facility] Reason for consultation: Bacteremia Has provider been notified: Yes 01/23/24 11:52 Consult to Wound Care Routine Reason for consultation: maceration to alex area DS: Diagnosis Discharge Diagnosis (1) Gram-positive bacteremia: Status: Acute DS: Summary Hospital Course Hospital Course: History of presenting illness; Date of Service: 01/16/24 Attending physician on admission: Ji Dang Chief Complaint: ams 78 yo female with PMH of afib on xarelto, DVT, HLD, recurrent UTI E. Coli, Klebsiella, Vanco S enterococcus, KRISHAN, DM, schizoaffective has a MOLST that states FULL CODE, respiratory failure, - but not on home O2 EMS reports [facility] reported hypoxia they state called for AMS unsure onset. At [facility] has been on azithromycin for pneumonia and was given 1g ceftriaxone today either for pneumonia/UTI/both. The patient is lethargic opening eyes to tactile stimuli, states her name but is otherwise disoriented and offers no complaints. On arrival, she is febrile to 101.7, tachycardic to 127, tachypneic. Was briefly hypotensive to 82/43 noted on playground monitor but improved to 112/63 on admission following IV fluids. She has a leukocytosis of 16.1. Creatinine 2.21, BUN 48. Sodium 147, potassium 6.2, electrolytes otherwise within normal limits. Initial lactic acid 3.5, repeat pending. VBG pH 7.45, pCO2 40, bicarb 28. Initial troponin 35.9, repeat pending. BNP 174. Procalcitonin 20.73. Chest CT shows dense consolidations with air bronchograms in the dependent right lower lobe and milder changes at the contralateral left lung base likely due to atelectasis. Head CT negative for acute intracranial abnormality. In the ED has been treated with 2 L IV LR, IV cefepime, vancomycin, 60 mg IV methylprednisolone, calcium gluconate, 5 units regular insulin and D10 Hospital course: 78yo F LTC resident of [facility] with AF + hx DVT on Xarelto, recurrent UTIs, DM2, and schizoaffecive disorder presented with hypoxia and acute mental status change found to found to have severe sepsis due to pneumonia and UTI, initially treated with IV ceftriaxone and vancomycin however blood culture grew Enterococcus resistant to vancomycin, therefore antibiotic transitioned to IV linezolid, echocardiogram showed EF 50-55% repeat blood culture January 18 are negative patient seen by infectious disease she recommends total 14 days of linezolid, since patient is clinically stable with no recurrent fevers therefore being discharged back to rehab facility, Patient minimally verbalize and noted to have decreased by mouth intake therefore case discussed with patient's healthcare proxy Mitul Mayfield discuss goal of care,HCP declined G-tube feedings, due to failure to thrive and multiple other comorbidities, code status changed to DNR DNI, patient requiring one-to-one feed seen by speech therapy they recommend ground mechanical with thi n liquids, patient is being discharged on by mouth linezolid end date 02/05. Patient noted to have acute kidney injury and hypokalemia on arrival treated with IV fluid renal function normalized, Lasix and potassium discontinued, no acute heart failure exacerbation noted follow volume status. In regard to diabetes mellitus type 2 patient has poor by mouth intake therefore metformin and Lantus were held patient is being treated with insulin sliding scale. In regard to history of anxiety, depression and schizoaffective disorder has been continued on mirtazapine,and Lexapro, trazodone and Klonopin held due to sedation may resume home medication as needed. Time Attestation Discharge Coordination Time (in mins): 40 Quality: Safe Use of Opioids Does Pt have an Active Cancer Diagnosis on the Problem List?: No Quality: Stroke Does the patient have a stroke diagnosis?: No Physical Exam Vital Signs: Vital Signs: Last Vital Signs Temp 97.6 F 01/29/24 07:44 Pulse 94 01/29/24 08:04 Resp 20 01/29/24 07:44 BP 115/69 01/29/24 08:04 Pulse Ox 98 01/29/24 07:44 O2 Del Method Nasal Cannula 01/29/24 07:44 O2 Flow Rate 1 01/29/24 07:44 BMI result Body Mass Index 33.0 Const: Other: Gen: Awake alert resting comfortably, nonverbal, in no acute distress. HEENT: sclera anicteric, moist mucus membranes Neck: supple Lungs: No respiratory distress, clear Heart: irregular, no murmurs Abd: soft, non-tender, non-distended Ext: LE edema Skin: warm/well-perfused Neuro: moving all extremities DS: Data Data Completed and Pending Completed studies during hospitalization [Text1]: Procedures Drainage of Gallbladder with Drainage Device, Percutaneous Approach (12/25/21) Extirpation of Matter from Common Bile Duct, Via Natural or Artificial Opening Endoscopic (12/25/21) Insertion of Infusion Device into Right Basilic Vein, Percutaneous Approach (12/25/21) Transfusion of Nonautologous Frozen Plasma into Peripheral Vein, Percutaneous Approach (12/25/21) Labs on day of discharge: Laboratory Results - last 24 hr 01/28/24 01/28/24 01/28/24 10:52 16:19 20:30 POC Glucose 188 H 169 H 164 H 01/29/24 07:10 POC Glucose 169 H Discharge Plan Discharge Anticipated Discharge Date/Time: 01/29/24 10:12 Patient Disposition: Xfer SNF Discharge Diagnosis: Enterococcus bacteremia Referrals: [facility] [place] [Outside] - 1 Day (RESUMPTION OF LTC) Jorje Perrin MD [Primary Care Provider] - 1 Week Discharge Medications: New linezolid 600 mg Tablet 600 mg PO BID Qty: 18 0RF metoprolol tartrate 25 mg Tablet 25 mg PO BID Qty: 60 0RF Protocol: Hold for SBP/HR < HOLD for SBP < : 90 HOLD for HR < : 60 Continued albuterol sulfate 90 mcg/actuation HFA aerosol inhaler 2 puff inhalation Q6H PRN (Reason: Shortness Of Breath Or Wheezing) simvastatin 10 mg tablet 10 mg PO BEDTIME Qty: 90 3RF escitalopram oxalate 10 mg tablet 10 mg PO DAILY 90 Days Qty: 90 0RF acetaminophen 325 mg Tablet 650 mg PO Q4H PRN (Reason: Fever Or Pain) mirtazapine 7.5 mg Tablet 7.5 mg PO BEDTIME Xarelto 20 mg tablet 1 tab PO DAILY@1700 albuterol sulfate 2.5 mg /3 mL (0.083 %) Solution For Nebulization 2.5 mg INHALATION Q4H PRN (Reason: SOB) bisacodyl 10 mg Suppository 10 mg WA DAILY PRN (Reason: Constipation) Biofreeze (menthol) 4 % Gel 1 appl TOPICAL BID Rx Instructions: to both knees sennosides [senna] 8.6 mg Tablet 17.2 mg PO DAILY PRN (Reason: No BM in 2 Days) ondansetron HCl 4 mg tablet 4 mg PO Q6H PRN (Reason: Nausea) insulin aspart U-100 [Novolog U-100 Insulin aspart] 100 unit/mL Solution 1 sliding scale dose SUBCUT TIDAC Protocol: Insulin Correction Scale Less than or equal to 110 ---- Give (units): 0 111 to 150 Give (units): 0 151 to 200 Give (units): 0 201 to 250 Give (units): 2 251 to 300 Give (units): 4 301 to 350 Give (units): 6 Greater than 350 Give (units): 8 Call MD if Blood Glucose > : 350 multivitamin,tx-minerals Tablet 1 tab PO DAILY Enema 19-7 gram/118 mL Enema 117 ml WA DAILY PRN (Reason: Bowel Management) magnesium oxide 400 mg magnesium Tablet 400 mg PO BID (DME) Pull ups Extra LArge See Rx Instructions .Route .MEDSUPPLY Qty: 120 11RF Rx Instructions: As directed Changed pregabalin 150 mg capsule 150 mg PO BID Qty: 30 0RF Discontinued metformin 500 mg tablet 500 mg PO BID Qty: 180 2RF trazodone 50 mg tablet 50 mg PO BEDTIME metoprolol tartrate 50 mg tablet 50 mg PO BID azithromycin 250 mg tablet 250 mg PO DAILY 3 Days Qty: 3 0RF Rx Instructions: started 01/13 x 4 days potassium chloride 20 mEq tablet,ER particles/crystals 1 tab PO BID furosemide 20 mg tablet 1 tab PO DAILY insulin glargine [Basaglar KwikPen U-100 Insulin] 100 unit/mL (3 mL) insulin pen 12 unit subcut BEDTIME clonazepam 0.5 mg Tablet 0.5 mg PO BID Discharge Orders: Discharge Order (Routine); Ordered 01/29/24 Ordered By: Anthony Basilio Diet: Diabetic diet Activity on Discharge: As tolerated Stand Alone Forms: Patient Portal Discharge page Print Language: Belarusian Care Plan Goals: Continue by mouth antibiotic for 9 more days 1:1 feedings ground mechanical altered with thin liquids Health Concerns: Diabetes mellitus/poor by mouth intake Chronic persistent AFib Plan of Treatment: Outpatient follow-up with primary care physician Assessment: As above
--- NOTE | 2024-01-29 10:18 | MHC.CM.PN ---
Second IMM sent to HCP. Pt has been medically cleared for DC, She will return to [facility] today via BLS. HCP notified via phone call.
[2024-01-29] MEDS: Linezolid 600 MG TABLET PO (11:34)
== END 2024-01-29 12:09 | disposition skilled nursing facility (03) | DRG 871 ==
LOC: HO.ED 19:14 → HO.EDOVER 20:24 → HO.IMC 01-17 07:41
PROVIDERS: Family Medicine; Hospitalist; Student in an Organized Health Care Education/Training Program; Admitting Provider Physician Assistant; Emergency Provider Emergency Medicine; PCP Family Medicine; Visit Provider Hospitalist
DX: A41.9 Sepsis, unspecified organism (principal); G93.41 Metabolic encephalopathy; J18.9 Pneumonia, unspecified organism; J96.01 Acute respiratory failure with hypoxia; N17.9 Acute kidney failure, unspecified; E87.1 Hypo-osmolality and hyponatremia; N39.0 Urinary tract infection, site not specified; Z16.21 Resistance to vancomycin; J98.11 Atelectasis; Z66 Do not resuscitate; F25.9 Schizoaffective disorder, unspecified; E87.6 Hypokalemia; B95.2 Enterococcus as the cause of diseases classified elsewhere; D64.9 Anemia, unspecified; I10 Essential (primary) hypertension; I48.0 Paroxysmal atrial fibrillation; R65.20 Severe sepsis without septic shock; E11.9 Type 2 diabetes mellitus without complications; Z20.822 Contact with and (suspected) exposure to COVID-19; Z86.718 Personal history of other venous thrombosis and embolism; Z87.440 Personal history of urinary (tract) infections; Z91.041 Radiographic dye allergy status; Z79.4 Long term (current) use of insulin; Z79.01 Long term (current) use of anticoagulants; Z79.899 Other long term (current) drug therapy
CPT/HCPCS: 0241U; 36415; 70450; 71250; 80048; 80053; 80076; 80202; 81001; 82565; 82607; 82728; 82746; 82803; 82947; 83540; 83605; 83615; 83690; 83735; 83880; 84145; 84443; 84484; 85025; 85027; 85045; 87040; 87077; 87086; 87147; 87186; 87205; 87449; 87899; 92526; 92610; 93005; 93306; 99285; J0295; J0613; J0692; J1160; J2020; J2919; J3370; J3371; J3480; J7120; P9047; Q9957

== ENCOUNTER → 2024-01-16 16:25 | Outpatient (BNV) | payer MEDICARE, MEDICAID, SELFPAY | PROVIDERS: Admitting Provider Physician Assistant; Emergency Provider Emergency Medicine; PCP Family Medicine; Visit Provider Internal Medicine Cardiovascular Disease | DX: R94.31 Abnormal electrocardiogram [ECG] [EKG] (principal) | CPT/HCPCS: 93010 ==

== ENCOUNTER 2024-01-16 19:55 | Outpatient (BNV) | payer MEDICARE, MEDICAID, SELFPAY | END 2024-01-17 07:00 | PROVIDERS: Admitting Provider Physician Assistant; Emergency Provider Emergency Medicine; PCP Family Medicine; Visit Provider Internal Medicine Cardiovascular Disease | DX: R94.31 Abnormal electrocardiogram [ECG] [EKG] (principal) | CPT/HCPCS: 93010; 93306 ==

== ENCOUNTER 2024-01-16 19:55 | Outpatient (BNV) | payer MEDICARE, MEDICAID, SELFPAY | END 2024-01-18 08:56 | PROVIDERS: Admitting Provider Physician Assistant; Emergency Provider Emergency Medicine; PCP Family Medicine; Visit Provider Internal Medicine Cardiovascular Disease | DX: R94.31 Abnormal electrocardiogram [ECG] [EKG] (principal) | CPT/HCPCS: 93010 ==

== ENCOUNTER → 2024-01-16 19:55 | Outpatient (BNV) | payer MEDICARE, MEDICAID, SELFPAY | PROVIDERS: Admitting Provider Physician Assistant; Emergency Provider Emergency Medicine; PCP Family Medicine; Visit Provider Physician Assistant | DX: A41.9 Sepsis, unspecified organism (principal); R65.20 Severe sepsis without septic shock; J96.01 Acute respiratory failure with hypoxia; J18.9 Pneumonia, unspecified organism | CPT/HCPCS: 99223; 99232; 99233; 99239; 99499 ==

== ENCOUNTER → 2024-01-16 19:55 | Outpatient (BNV) | payer MEDICARE, MEDICAID, SELFPAY | PROVIDERS: Admitting Provider Physician Assistant; Emergency Provider Emergency Medicine; PCP Family Medicine; Visit Provider Internal Medicine | DX: R78.81 Bacteremia (principal) | CPT/HCPCS: 99222 ==